=== PATIENT | female | born 1950 | race Caucasian/White ===

== ENCOUNTER → 2016-03-31 | Outpatient (CLI) | payer BC, MEDICARE ==
--- NOTE | 2016-03-31 09:25 | US ---
EXAMINATION TYPE: US abdomen complete DATE OF EXAM: 03/31/2016 7:44 AM COMPARISON: NONE CLINICAL HISTORY: 66-year-old female with abnormal renal function TECHNIQUE: Multiple sonographic images of the abdomen were obtained. FINDINGS: TECHNOLOGIST NOTES: patient very gassy, difficult to image Liver Length: 15.5 cm Gallbladder Wall: 0.2 cm CBD: 0.4 cm Spleen: 10.7 cm Right Kidney: 11.3 x 5.3 x 4.3 cm Left Kidney: 8.8 x 4.0 x 3.5 cm Pancreas: Suboptimal visualization secondary to shadowing from bowel gas. Liver: Normal size with homogeneous echotexture and no focal lesion seen. Gallbladder: No abnormal gallbladder distention, wall thickening, or pericholecystic fluid. However, multiple dependent echoge juan carlos foci are present some of which show posterior shadowing suggestive of calculi measuring up to 1.2 cm. Multiple probable stones with a few remaining within neck in LLD position/ wall not thickened Evidence for sonographic Jeong's sign: No CBD: Within normal limits. Spleen: Within normal limits. Right Kidney: No hydronephrosis. Left Kidney: Asymmetric smaller with cortical thinning. No hydronephrosis. Upper IVC: Within normal limits. Abd Aorta: proximal portion obscured by bowel gas. Mid and distal abdominal aorta show no evidence f or aneurysm. IMPRESSION: 1. Cholelithiasis. No evidence for acute cholecystitis. 2. Atrophic left kidney. 3. No hydronephrosis.
== END | disposition home or self-care (01) ==
LOC: RADUSWWP 07:23
PROVIDERS: ATTEND Internal Medicine
DX: N26.1 Atrophy of kidney (terminal) (principal); K80.20 Calculus of gallbladder without cholecystitis without obstruction
CPT/HCPCS: 76700

== ENCOUNTER 2020-07-10 05:57 | Inpatient (IN) | payer MEDICARE ==
[2020-07-10] MEDS ORDERED: SODIUM CHLORIDE 0.9% 500 ML 500 ML IV STA (06:15)
[2020-07-10] MEDS ORDERED: NITROGLYCERIN SL TABS 0.4 MG TAB SUBLINGUAL STA (06:16)
[2020-07-10] MEDS ORDERED: ASPIRIN 81 MG PO STA (06:16)
--- NOTE | 2020-07-10 06:19 | ED ---
General Adult HPI - General Chief complaint: Shortness of Breath Stated complaint: SOB, chest pain Time Seen by Provider: 07/10/20 06:11 Source: patient, RN notes reviewed Mode of arrival: wheelchair Limitations: no limitations - History of Present Illness Initial comments: This is a 70-year-old female presents emergency Department chief complaint chest pain, shortness breath. Patient states that she's had pain since Monday she states initially was kind of faint dull pressure but resolved on but returned worsened this morning. Patient states she has no prior cardiac disease noted in the disease including 2. Asthma. Patient does admit that she has hypertension, hyperlipidemia and diabetes. Patient denies any history of PE or DVT no history of leg pain noHistory of CHF. - Related Data Allergies Allergy/AdvReac Type Severity Reaction Status Date / Time No Known Allergies Allergy Verified 07/10/20 06:01 Review of Systems ROS Statement: Those systems with pertinent positive or pertinent negative responses have been documented in the HPI. ROS Other: All systems not noted in ROS Statement are negative. Past Medical History Past Medical History: Diabetes Mellitus, Hyperlipidemia, Hypertension, Respiratory Disorder History of Any Multi-Drug Resistant Organisms: None Reported Additional Past Surgical History / Comment(s): skin CA removal Past Psychological History: No Psychological Hx Reported Smoking Status: Never smoker Past Alcohol Use History: None Reported Past Drug Use History: None Reported General Exam Limitations: no limitations General appearance: alert, in no apparent distress Head exam: Present: atraumatic, normocephalic, normal inspection Eye exam: Present: normal appearance, PERRL, EOMI. Absent: scleral icterus, conjunctival injection, periorbital swelling Neck exam: Present: normal inspection, full ROM. Absent: tenderness, meningismus, lymphadenopathy Respiratory exam: Present: normal lung sounds bilaterally. Absent: respiratory distress, wheezes, rales, rhonchi, stridor, chest wall tenderness Cardiovascular Exam: Present: regular rate, normal rhythm, normal heart sounds. Absent: systolic murmur, diastolic murmur, rubs, gallop, clicks GI/Abdominal exam: Present: soft, normal bowel sounds. Absent: distended, tenderness, guarding, rebound, rigid Back exam: Absent: CVA tenderness (R), CVA tenderness (L) Neurological exam: Present: alert, oriented X3, CN II-XII intact Skin exam: Present: warm, dry, intact, normal color. Absent: rash Course Vital Signs 07/10/20 06:02 Temperature 98.0 F Pulse Rate 78 Respiratory 18 Rate Blood Pressure 146/82 O2 Sat by Pulse 99 Oximetry EKG Findings - EKG Comments: EKG Findings:: EKG performed at 6:22 normal sinus rhythm noted inverted T waves V2 through V5 rate of 75 AK 166 QRS 98 QT/QTC 434/484 Medical Decision Making - Lab Data Result diagrams: 07/10/20 06:35 07/10/20 06:35 Lab Results 07/10/20 07/10/20 07/10/20 Range/Units 06:35 06:35 06:35 WBC 11.0 H (3.8-10.6) k/uL RBC 3.52 L (3.80-5.40) m/uL Hgb 11.3 L (11.4-16.0) gm/dL Hct 33.3 L (34.0-46.0) % MCV 94.7 (80.0-100.0) fL MCH 32.1 (25.0-35.0) pg MCHC 33.9 (31.0-37.0) g/dL RDW 13.6 (11.5-15.5) % Plt Count 174 (150-450) k/uL MPV 8.6 Neutrophils % 81 % Lymphocytes % 12 % Monocytes % 5 % Eosinophils % 1 % Basophils % 0 % Neutrophils # 9.0 H (1.3-7.7) k/uL Lymphocytes # 1.3 (1.0-4.8) k/uL Monocytes # 0.5 (0-1.0) k/uL Eosinophils # 0.1 (0-0.7) k/uL Basophils # 0.0 (0-0.2) k/uL PT 10.7 (9.0-12.0) sec INR 1.0 (<1.2) APTT 23.4 (22.0-30.0) sec Sodium 135 L (137-145) mmol/L Potassium 4.6 (3.5-5.1) mmol/L Chloride 104 (98-107) mmol/L Carbon Dioxide 19 L (22-30) mmol/L Anion Gap 12 mmol/L BUN 37 H (7-17) mg/dL Creatinine 1.80 H (0.52-1.04) mg/dL Est GFR (CKD-EPI)AfAm 33 (>60 ml/min/1.73 sqM) Est GFR (CKD-EPI)NonAf 28 (>60 ml/min/1.73 sqM) Glucose 270 H (74-99) mg/dL Plasma Lactic Acid Kin (0.7-2.0) mmol/L Calcium 9.3 (8.4-10.2) mg/dL Magnesium 1.7 (1.6-2.3) mg/dL Total Bilirubin 1.1 (0.2-1.3) mg/dL AST 27 (14-36) U/L ALT 15 (4-34) U/L Alkaline Phosphatase 85 (38-126) U/L Troponin I (0.000-0.034) ng/mL NT-Pro-B Natriuret Pep pg/mL Total Protein 6.7 (6.3-8.2) g/dL Albumin 3.9 (3.5-5.0) g/dL 07/10/20 07/10/20 07/10/20 Range/Units 06:35 06:35 06:35 WBC (3.8-10.6) k/uL RBC (3.80-5.40) m/uL Hgb (11.4-16.0) gm/dL Hct (34.0-46.0) % MCV (80.0-100.0) fL MCH (25.0-35.0) pg MCHC (31.0-37.0) g/dL RDW (11.5-15.5) % Plt Count (150-450) k/uL MPV Neutrophils % % Lymphocytes % % Monocytes % % Eosinophils % % Basophils % % Neutrophils # (1.3-7.7) k/uL Lymphocytes # (1.0-4.8) k/uL Monocytes # (0-1.0) k/uL Eosinophils # (0-0.7) k/uL Basophils # (0-0.2) k/uL PT (9.0-12.0) sec INR (<1.2) APTT (22.0-30.0) sec Sodium (137-145) mmol/L Potassium (3.5-5.1) mmol/L Chloride (98-107) mmol/L Carbon Dioxide (22-30) mmol/L Anion Gap mmol/L BUN (7-17) mg/dL Creatinine (0.52-1.04) mg/dL Est GFR (CKD-EPI)AfAm (>60 ml/min/1.73 sqM) Est GFR (CKD-EPI)NonAf (>60 ml/min/1.73 sqM) Glucose (74-99) mg/dL Plasma Lactic Acid Kin 1.4 (0.7-2.0) mmol/L Calcium (8.4-10.2) mg/dL Magnesium (1.6-2.3) mg/dL Total Bilirubin (0.2-1.3) mg/dL AST (14-36) U/L ALT (4-34) U/L Alkaline Phosphatase (38-126) U/L Troponin I 0.641 H* (0.000-0.034) ng/mL NT-Pro-B Natriuret Pep 39594 pg/mL Total Protein (6.3-8.2) g/dL Albumin (3.5-5.0) g/dL Critical Care Time Critical Care Time: Yes Total Critical Care Time: 35 Critical Care Time: Total 35 minutes of critical care time use initially that the patient already past medical history or in labs EKG and chest x-ray. Patient found to have mild pleural effusion, pulmonary edema, patient has no history of CHF was given dose of Lasix. 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 Disposition Clinical Impression: NSTEMI (non-ST elevated myocardial infarction), CHF (congestive heart failure) Disposition: ADMITTED IP TO THIS HOSP Condition: Fair Referrals: Julieta Donovan MD [Primary Care Provider] - 1-2 days
[2020-07-10] MEDS ORDERED: NITROGLYCERIN OINT 1 INCH/GM PACKET TOPICAL STA (06:41)
[2020-07-10 06:48] LABS: Basophils % (A) 0 %; Eosinophils # (A) 0.1 k/uL (0-0.7); Eosinophils % (A) 1 %; HCT 33.3 % (34.0-46.0); HGB 11.3 gm/dL (11.4-16.0); Lymphocytes # (A) 1.3 k/uL (1.0-4.8); Lymphocytes % (A) 12 %; MCH 32.1 pg (25.0-35.0); MCHC 33.9 g/dL (31.0-37.0); MCV 94.7 fL (80.0-100.0); Mean Platelet Volume 8.6; Monocytes # (A) 0.5 k/uL (0-1.0); Monocytes % (A) 5 %; Neutrophils % (A) 81 %; Platelet Count 174 k/uL (150-450); RBC 3.52 m/uL (3.80-5.40); RDW 13.6 % (11.5-15.5)
[2020-07-10 07:01] LABS: Albumin 3.9 g/dL (3.5-5.0); Calcium 9.3 mg/dL (8.4-10.2); Magnesium 1.7 mg/dL (1.6-2.3); Potassium 4.6 mmol/L (3.5-5.1); Total Bilirubin 1.1 mg/dL (0.2-1.3); Total Protein 6.7 g/dL (6.3-8.2)
[2020-07-10 07:04] LABS: Partial Thromboplastin Time 23.4 sec (22.0-30.0); Prothrombin Time 10.7 sec (9.0-12.0)
--- NOTE | 2020-07-10 07:14 | XR ---
EXAM: XR Chest, 2 Views CLINICAL HISTORY: ITS.REASON XR Reason: difficulty breathing TECHNIQUE: Frontal and lateral views of the chest. COMPARISON: No relevant prior studies available. FINDINGS: Lungs: Bilateral lung opacities. Pleural space: Small pleural effusions. Heart: Unremarkable. Mediastinum: Bilateral hilar prominence. Compare to prior imaging if available. Bones/joints: No acute fracture. Other: Relative lucency at the posterior lung base on the lateral view, indeterminate etiology. IMPRESSION: Small pleural effusions and bilateral lung opacities. Correlate clinically regarding edema or infection.
[2020-07-10] MEDS ORDERED: HEPARIN SODIUM 1,000 UN/ML (10ML VL) IV ONE (07:30)
[2020-07-10] MEDS ORDERED: NITROGLYCERIN SL TABS 0.4 MG TAB SUBLINGUAL PRN (07:30)
[2020-07-10] MEDS ORDERED: FUROSEMIDE 10 MG/ML 4 ML VIAL IV STA (07:33)
[2020-07-10] MEDS: HEPARIN SOD,PORK IN 0.45% NACL 25,000 UNIT in 0.45% NACL 1 250ML.BAG IV SCH ×2 (07:53→23:12)
[2020-07-10] MEDS ORDERED: LORazepam 2 MG/ML INJ IV STA (08:21)
[2020-07-10] MEDS: METOPROLOL SUCCINATE (ER) 50 MG TAB.ER.24H PO SCH (09:21)
[2020-07-10] MEDS: allopurinoL 100 MG TAB PO SCH (09:21)
[2020-07-10] MEDS: LINAGLIPTIN 5 MG TABLET PO SCH (09:22)
[2020-07-10] MEDS: LOSARTAN 50 MG TAB PO SCH (09:22)
--- NOTE | 2020-07-10 10:59 | ECHOF ---
Referral Reason:NSTEMI,CHF MEASUREMENTS -------- HEIGHT: 160.0 cm WEIGHT: 86.2 kg BP: RVIDd: 3.4 cm (< 3.3) IVSd: 0.9 cm (0.6 - 1.1) LVIDd: 5.3 cm (3.9 - 5.3) LVPWd: 1.3 cm (0.6 - 1.1) IVSs: 1.0 cm LVIDs: 3.8 cm LVPWs: 1.3 cm LAESV Index (A-L): 44.52 ml/m Ao Diam: 2.4 cm (2.0 - 3.7) AV Cusp: 1.4 cm (1.5 - 2.6) LA Diam: 4.7 cm (2.7 - 3.8) MV EXCURSION: 18.395 mm (> 18.000) MV EF SLOPE: 61 mm/s (70 - 150) EPSS: 0.9 cm MV E Emile: 0.86 m/s MV DecT: 162 ms MV A Emile: 0.81 m/s MV E/A Ratio: 1.06 RAP: 5.00 mmHg RVSP: 49.31 mmHg FINDINGS -------- Sinus rhythm. This was a technically difficult study with suboptimal views. This was a techncally difficult study with suboptimal views, , Lumason utilized for enhancement of images. The left ventricular size is normal. Overall left ventricular systolic function is moderate-severel y impaired with, an EF between 30 - 35 %. Mid anterior LV wall motion is akinetic. Mid inferior LV wall motion is akinetic. Apical anterior LV wall motion is akinetic. Apical lateral LV wall motion is akinetic. Apical inferior LV wall motion is akinetic. Apical septum LV wall motion is akinetic. The right ventricle is normal in size. LA is severely dilated >40 ml/m2 The right atrial size is normal. 5.0mg OF Lumason UTLIZED: 2 OR MORE WALL SEGMENTS NOT VISUALIZED. The aortic valve was not well visualized. The mitral valve is normal. Moderate mitral regurgitation is present. The tricuspid valve appears structurally normal. Mild tricuspid regurgitation present. There is m oderate pulmonary hypertension. The right ventricular systolic pressure, as measured by Doppler, is 49.31mmHg. The pulmonic valve was not well visualized. The aortic root size is normal. There is no pericardial effusion. CONCLUSIONS -------- 1. This was a technically difficult study with suboptimal views. 2. This was a techncally difficult study with suboptimal views, , Lumason utilized for enhancement of images. 3. Overall left ventricular systolic function is moderate-severely impaired with, an EF between 30 - 35 %. 4. Mid anterior LV wall motion is akinetic. 5. Mid inferior LV wall motion is akinetic. 6. Apical anterior LV wall motion is akinetic. 7. Apical lateral LV wall motion is akinetic. 8. Apical inferior LV wall motion is akinetic. 9. Apical septum LV wall motion is akinetic. 10. LA is severely dilated >40 ml/m2 11. 5.0mg OF Lumason UTLIZED: 2 OR MORE WALL SEGMENTS NOT VISUALIZED. 12. The aortic valve was not well visualized. 13. Moderate mitral regurgitation is present. 14. Mild tricuspid regurgitation present. 15. There is moderate pulmonary hypertension. 16. There is no pericardial effusion. ASSISTANT PROFESSOR OF ENGLISH: Juanis Paredes RDCS
[2020-07-10 11:56] LABS: Glucose,Whole Blood 346 mg/dL (75-99)
[2020-07-10] MEDS: ISOSORBIDE MONONITRATE ER 30 MG TAB.ER.24H PO SCH (12:28)
[2020-07-10] MEDS: GLIMEPIRIDE 2 MG TAB PO SCH ×2 (12:28→21:16)
[2020-07-10] MEDS: INSULIN ASPART (NovoLOG) 100 UNIT/ML VIAL SQ SCH ×3 (12:51→21:16)
[2020-07-10] MEDS: PIOGLITAZONE 30 MG TAB PO SCH (12:51)
--- NOTE | 2020-07-10 13:02 | P.NPCON ---
History of Present Illness - Reason for Consult chronic renal failure - History of Present Illness Reason for consultation: Chronic kidney disease History of present is: Patient is a 70-year-old female seen in consultation for chronic kidney disease. Patient has chronic kidney disease stage IIIB/4 with baseline creatinine in the range of 1.5-2 secondary to ischemic nephropathy and diabetic kidney disease. Patient presented to the hospital with shortness of breath and also chest discomfort. Patient states the pains been going on for the last 2-3 days and describes it as a dull pressure. Chest x-ray was suggestive of vascular congestion. She is currently on BiPAP. She is currently maintained on IV Lasix and is diuresing well. She is also on heparin drip for non-ST elevated myocardial infarction. Patient has long-standing history of diabetes mellitus. She denies use of nonsteroidals. No hematuria or dysuria. No vomiting or diarrhea. Oral intake has been fair. No fever or chills. She tested negative for coronavirus. Vital signs are stable. General: The patient appeared well nourished and normally developed. HEENT: Head exam is unremarkable. Neck is without jugular venous distension. LUNGS: Breath sounds decreased. HEART: Rate and Rhythm are regular. ABDOMEN: Soft, nontender. EXTREMITITES: Trace edema. Past Medical History Past Medical History: Diabetes Mellitus, Hyperlipidemia, Hypertension, Renal Disease, Respiratory Disorder Additional Past Medical History / Comment(s): Stage IV kidney disease, heart m urmur. Pt had Moderna vaccine on 05/07/20 & 06/04/20. History of Any Multi-Drug Resistant Organisms: None Reported Additional Past Surgical History / Comment(s): skin CA removal Past Psychological History: No Psychological Hx Reported Smoking Status: Never smoker Past Alcohol Use History: None Reported Past Drug Use History: None Reported - Past Family History Father Additional Family Medical History / Comment(s): "heart issues" Medications and Allergies Home Medications Medication Instructions Recorded Confirmed Type Allopurinol [Zyloprim] 100 mg PO DAILY 07/10/20 07/10/20 History Aspirin EC [Ecotrin Low Dose] 81 mg PO DAILY 07/10/20 07/10/20 History Cholecalciferol [Vitamin D3 (25 25 mcg PO DAILY 07/10/20 07/10/20 History Mcg = 1000 Iu)] Glimepiride [Amaryl] 2 mg PO BID 07/10/20 07/10/20 History Losartan Potassium 50 mg PO DAILY 07/10/20 07/10/20 History Metoprolol Succinate (ER) [Toprol 50 mg PO DAILY 07/10/20 07/10/20 History Xl] Pioglitazone [Actos] 30 mg PO DAILY 07/10/20 07/10/20 History Simvastatin [Zocor] 40 mg PO HS 07/10/20 07/10/20 History Spironolactone 50 mg PO HS 07/10/20 07/10/20 History sitaGLIPtin [Januvia] 50 mg PO DAILY 07/10/20 07/10/20 History Allergies Allergy/AdvReac Type Severity Reaction Status Date / Time No Known Allergies Allergy Verified 07/10/20 08:46 Physical Exam Vitals: Vital Signs Temp Pulse Pulse Resp BP BP Pulse Ox 07/10/20 12:50 24 98 07/10/20 12:25 66 24 150/69 100 07/10/20 10:25 98.7 F 65 20 143/87 100 07/10/20 10:00 81 24 134/98 99 07/10/20 08:22 98.4 F 92 28 H 164/69 100 07/10/20 06:02 98.0 F 78 18 146/82 99 Intake and Output 07/09/20 07/10/20 07/10/20 22:59 06:59 14:59 Other: Weight 86.183 kg 86.183 kg Results - Lab Results Most recent lab results Calcium 9.3 mg/dL (8.4-10.2) 07/10/20 06:35 Magnesium 1.7 mg/dL (1.6-2.3) 07/10/20 06:35 07/10/20 06:35 07/10/20 06:35 Assessment and Plan Plan: Assessment: 1. 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 Baseline creatinine 1.5-2. GFR at baseline. 2. Non-ST elevated [place] maintained on heparin drip. 3. Acute on chronic systolic CHF with ejection fraction of 30-35% with moderate mitral regurgitation and pulmonary hypertension. 4. Metabolic acidosis secondary to chronic kidney disease. 5. Diabetes mellitus. 6. Volume overload. 7. Acute hypoxic respiratory failure. Currently on BiPAP. Plan: Maintain IV Lasix 40 mg twice daily. Avoid nephrotoxins. Repeat electrolytes in the morning. Monitor bicarb. Thank you for the consultation. I will continue to follow the patient with you during her hospital stay.
--- NOTE | 2020-07-10 14:39 | P.CRDCN ---
History of Present Illness History of present illness: HISTORY OF PRESENTING ILLNESS This is a pleasant 70-year-old female past medical history significant for type 2 diabetes, hyperlipidemia, hypertension, chronic kidney disease. 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 We have been asked to see in consultation for chest pain and congestive heart failure. Patient is seen and examined at bedside on BiPAP. Patient states that she's been having left-sided chest pain for the past week and increased shortness of breath. Pain is exertional. Pain is intermittent describes as a pressure. Her shortness of breath started on Monday and progressively got worse. EKG reveals sinus rhythm, heart rate 75, T wave inversions in the anterior lateral leads. No prior EKG to compare. Laboratory data reviewed, troponins 0.6-->,1.3, BNP elevated 14,500, sodium 135, potassium 4.6, serum creatinine 1.8, magnesium 1.7, covid-19 negative. Chest x-ray small pleural effusions and bilateral lung opacities. Current home cardiac medications include spironolactone 50 mg nightly, simvastatin 40 mg nightly, troponins less than a 50 mg daily, losartan 50 mg daily, aspirin 81 mg daily. REVIEW OF SYSTEMS At the time of my exam: CONSTITUTIONAL: Denies fever or chills. CARDIOVASCULAR: Positive chest pain, positive shortness of breath, positive orthopnea Denies PND or palpitations. RESPIRATORY: Denies cough. GASTROINTESTINAL: Denies abdominal pain, diarrhea, constipation, nausea or vomiting. MUSCULOSKELETAL: Denies myalgias. NEUROLOGIC: Denies numbness, tingling, headacbe or weakness. ENDOCRINE: Denies fatigue, weight change, polydipsia or polyurina. GENITOURINARY: Denies burning, hematuria or urgency with micturation. HEMATOLOGIC: Denies history of anemia or bleeding. PHYSICAL EXAMINATION Blood pressure 150/69, heart rate 66 afebrile and maintaining oxygen saturation BiPAP CONSTITUTIONAL: No apparent distress. HEENT: Head is normocephalic. Pupils are equal, round. Sclerae anicteric. Mucous membranes of the mouth are moist. CHEST EXAMINATION: Lungs bibasilar crackles No chest wall tenderness is noted on palpation or with deep breathing. HEART EXAMINATION: Regular rate and rhythm. S1, S2 heard. Systolic murmuc noted. No gallops or rub. ABDOMEN: Soft, nontender. Positive bowel sounds. EXTREMITIES: 2+ peripheral pulses, moderate lower extremity edema and no calf tenderness. NEUROLOGIC EXAMINATION: Patient is awake, alert and oriented x3. ASSESSMENT NSTEMI Type 2 Diabetes Hyperlipidemia Hypertension Chronic kidney disease- Nephrology consulted PLAN Will obtain 2D echo and review results Will place patient NPO at midnight for possible cardiac catheterization tomorrow. Start IV Lasix 40mg BID, Imdur 30mg daily Continue Losartan, beta charity Nurse Practitioner note has been reviewed, I agree with a documented findings and plan of care. Patient was seen and examined. Past Medical History Past Medical History: Diabetes Mellitus, Hyperlipidemia, Hypertension, Renal Disease, Respiratory Disorder Additional Past Medical History / Comment(s): Stage IV kidney disease, heart murmur. Pt had Moderna vaccine on 05/07/20 & 06/04/20. History of Any Multi-Drug Resistant Organisms: None Reported Additional Past Surgical History / Comment(s): skin CA removal Past Psychological History: No Psychological Hx Reported Smoking Status: Never smoker Past Alcohol Use History: None Reported Past Drug Use History: None Reported - Past Family History Father Additional Family Medical History / Comment(s): "heart issues" Medications and Allergies Home Medications Medication Instructions Recorded Confirmed Type Allopurinol [Zyloprim] 100 mg PO DAILY 07/10/20 07/10/20 History Aspirin EC [Ecotrin Low Dose] 81 mg PO DAILY 07/10/20 07/10/20 History Cholecalciferol [Vitamin D3 (25 25 mcg PO DAILY 07/10/20 07/10/20 History Mcg = 1000 Iu)] Glimepiride [Amaryl] 2 mg PO BID 07/10/20 07/10/20 History Losartan Potassium 50 mg PO DAILY 07/10/20 07/10/20 History Metoprolol Succinate (ER) [Toprol 50 mg PO DAILY 07/10/20 07/10/20 History Xl] Pioglitazone [Actos] 30 mg PO DAILY 07/10/20 07/10/20 History Simvastatin [Zocor] 40 mg PO HS 07/10/20 07/10/20 History Spironolactone 50 mg PO HS 07/10/20 07/10/20 History sitaGLIPtin [Januvia] 50 mg PO DAILY 07/10/20 07/10/20 History Allergies Allergy/AdvReac Type Severity Reaction Status Date / Time No Known Allergies Allergy Verified 07/10/20 08:46 Physical Exam Vitals: Vital Signs Temp Pulse Pulse Resp BP BP Pulse Ox 07/10/20 13:09 66 24 07/10/20 12:50 24 98 07/10/20 12:25 66 24 150/69 100 07/10/20 10:25 98.7 F 65 20 143/87 100 07/10/20 10:00 81 24 134/98 99 07/10/20 08:22 98.4 F 92 28 H 164/69 100 07/10/20 06:02 98.0 F 78 18 146/82 99 Intake and Output 07/09/20 07/10/20 07/10/20 22:59 06:59 14:59 Other: Voiding Method Indwelling Catheter Weight 86.183 kg 86.183 kg Results 07/10/20 06:35 07/10/20 06:35 Cardiac Enzymes 07/10/20 07/10/20 07/10/20 Range/Units 06:35 06:35 10:35 AST 27 (14-36) U/L Troponin I 0.641 H* 1.310 H* (0.000-0.034) ng/mL Coagulation 07/10/20 Range/Units 06:35 PT 10.7 (9.0-12.0) sec APTT 23.4 (22.0-30.0) sec CBC 07/10/20 Range/Units 06:35 WBC 11.0 H (3.8-10.6) k/uL RBC 3.52 L (3.80-5.40) m/uL Hgb 11.3 L (11.4-16.0) gm/dL Hct 33.3 L (34.0-46.0) % Plt Count 174 (150-450) k/uL Comprehensive Metabolic Panel 07/10/20 Range/Units 06:35 Sodium 135 L (137-145) mmol/L Potassium 4.6 (3.5-5.1) mmol/L Chloride 104 (98-107) mmol/L Carbon Dioxide 19 L (22-30) mmol/L BUN 37 H (7-17) mg/dL Creatinine 1.80 H (0.52-1.04) mg/dL Glucose 270 H (74-99) mg/dL Calcium 9.3 (8.4-10.2) mg/dL AST 27 (14-36) U/L ALT 15 (4-34) U/L Alkaline Phosphatase 85 (38-126) U/L Total Protein 6.7 (6.3-8.2) g/dL Albumin 3.9 (3.5-5.0) g/dL Current Medications Generic Name Dose Route Start Last Admin Trade Name Freq PRN Reason Stop Dose Admin Allopurinol 100 mg 07/10/20 09:00 07/10/20 09:21 Allopurinol 100 Mg Tab PO 100 mg DAILY CALLY Administration Aspirin 325 mg 07/11/20 09:00 Aspirin 325 Mg Tab PO DAILY CALLY Atorvastatin Calcium 20 mg 07/10/20 21:00 Atorvastatin 20 Mg Tab PO HS CALLY Furosemide 40 mg 07/10/20 21:00 Furosemide 10 Mg/Ml 4 Ml Vial IV Q12HR CALLY Glimepiride 2 mg 07/10/20 09:00 07/10/20 12:28 Glimepiride 2 Mg Tab PO 2 mg BID CALLY Administration Heparin Sodium/Sodium Chloride 250 mls @ 9.997 mls/hr 07/10/20 07:30 07/10/20 07:53 25,000 unit/ Sodium Chloride IV 11.6 units/kg/hr .Q24H CALLY 9.997 mls/hr Administration Protocol 11.6 UNITS/KG/HR Insulin Aspart 0 unit 07/10/20 12:30 07/10/20 12:51 Insulin Aspart (Novolog) 100 Unit/Ml Vial SQ 6 unit ACHS CALLY Administration Protocol Isosorbide Mononitrate 30 mg 07/10/20 11:00 07/10/20 12:28 Isosorbide Mononitrate Er 30 Mg Tab.Er.24h PO 30 mg DAILY CALLY Administration Linagliptin 5 mg 07/10/20 09:00 07/10/20 09:22 Linagliptin 5 Mg Tablet PO 5 mg DAILY CALLY Administration Losartan Potassium 50 mg 07/10/20 09:00 07/10/20 09:22 Losartan 50 Mg Tab PO 50 mg DAILY CALLY Administration Metoprolol Succinate 50 mg 07/10/20 09:00 07/10/20 09:21 Metoprolol Succinate (Er) 50 Mg Tab.Er.24h PO 50 mg DAILY CALLY Administration Nitroglycerin 0.4 mg 07/10/20 07:30 Nitroglycerin Sl Tabs 0.4 Mg Tab SUBLINGUAL Q5M PRN Chest Pain Pioglitazone HCl 30 mg 07/10/20 09:00 07/10/20 12:51 Pioglitazone 30 Mg Tab PO 30 mg DAILY CALLY Administration Intake and Output 07/09/20 07/10/20 07/10/20 22:59 06:59 14:59 Other: Voiding Method Indwelling Catheter Weight 86.183 kg 86.183 kg Patient Weight 07/11/20 06:59 Weight 86.183 kg 07/10/20 06:35 07/10/20 06:35
--- NOTE | 2020-07-10 16:34 | P.HPIM ---
History of Present Illness This is a pleasant 70 years old female with past medical history of diabetes mellitus, hypertension, hyperlipidemia, stage IV chronic kidney disease. He is a patient of Dr. Barnett presents because OF chest pain and progressive dyspnea over few days. Her chest pain started last Monday for 3-4 days ago, it improved gradually but got worse yesterday. Pain was coming and going. Last night it did not go away so decided to come to the hospital. Was about 5/70 severity on the left side, none dictated. Associated with orthopnea and paroxysmal nocturnal dyspnea. She has to sit up to avoid shortness of breath. She has some little cough and phlegm. Pathak catheter was placed in the emergency room. No GI or urinary symptoms ini tially patient admitted with oxygen supplemented via BiPAP machine including this morning, currently her breathing is improving and she is only on 4 L oxygen and is She denies smoking, alcohol or illicit drugs. Currently she is saturating 96% on 4 L nasal cannula, patient is afebrile. Lap showing WBC of 11.0 K, hemoglobin 11.3, INR is 1.0, sodium 135, creatinine is 1.8. Baseline 1.8-2.2. INR is normal 1.0, trace of BMP and liver enzymes are unremarkable. Troponin is elevated at 0.6 [place] 1[place] [address]. Physical exam, no espinal virus are not detected. Echocardiogram: [employer] ejection fraction 30-35%, several wall motion abnormality chest x-ray: Bilateral lung capacity, edema or infection In the emergency room patient was started on aspirin, heparin drip, lorazepam, furosemide 40 mg IV once. Past Medical History Past Medical History: Diabetes Mellitus, Hyperlipidemia, Hypertension, Renal Disease, Respiratory Disorder Additional Past Medical History / Comment(s): Stage IV kidney disease, heart murmur. Pt had Moderna vaccine on 05/07/20 & 06/04/20. History of Any Multi-Drug Resistant Organisms: None Reported Additional Past Surgical History / Comment(s): skin CA removal Past Psychological History: No Psychological Hx Reported Smoking Status: Never smoker Past Alcohol Use History: None Reported Past Drug Use History: None Reported - Past Family History Father Additional Family Medical History / Comment(s): "heart issues" Medications and Allergies Home Medications Medication Instructions Recorded Confirmed Type Allopurinol [Zyloprim] 100 mg PO DAILY 07/10/20 07/10/20 History Aspirin EC [Ecotrin Low Dose] 81 mg PO DAILY 07/10/20 07/10/20 History Cholecalciferol [Vitamin D3 (25 25 mcg PO DAILY 07/10/20 07/10/20 History Mcg = 1000 Iu)] Glimepiride [Amaryl] 2 mg PO BID 07/10/20 07/10/20 History Losartan Potassium 50 mg PO DAILY 07/10/20 07/10/20 History Metoprolol Succinate (ER) [Toprol 50 mg PO DAILY 07/10/20 07/10/20 History Xl] Pioglitazone [Actos] 30 mg PO DAILY 07/10/20 07/10/20 History Simvastatin [Zocor] 40 mg PO HS 07/10/20 07/10/20 History Spironolactone 50 mg PO HS 07/10/20 07/10/20 History sitaGLIPtin [Januvia] 50 mg PO DAILY 07/10/20 07/10/20 History Allergies Allergy/AdvReac Type Severity Reaction Status Date / Time No Known Allergies Allergy Verified 07/10/20 08:46 Physical Exam Vitals: Vital Signs Temp Pulse Pulse Resp BP BP Pulse Ox 07/10/20 14:00 18 96 07/10/20 13:09 66 24 07/10/20 12:50 24 98 07/10/20 12:25 66 24 150/69 100 07/10/20 10:25 98.7 F 65 20 143/87 100 07/10/20 10:00 81 24 134/98 99 07/10/20 08:22 98.4 F 92 28 H 164/69 100 07/10/20 06:02 98.0 F 78 18 146/82 99 Intake and Output 07/10/20 07/10/20 07/10/20 06:59 14:59 22:59 Other: Voiding Method Indwelling Catheter Weight 86.183 kg 86.183 kg Results CBC & Chem 7: 07/10/20 06:35 07/10/20 06:35 Labs: Abnormal Lab Results - Last 24 Hours (Table) 07/10/20 07/10/20 07/10/20 Range/Units 06:35 06:35 06:35 WBC 11.0 H (3.8-10.6) k/uL RBC 3.52 L (3.80-5.40) m/uL Hgb 11.3 L (11.4-16.0) gm/dL Hct 33.3 L (34.0-46.0) % Neutrophils # 9.0 H (1.3-7.7) k/uL Sodium 135 L (137-145) mmol/L Carbon Dioxide 19 L (22-30) mmol/L BUN 37 H (7-17) mg/dL Creatinine 1.80 H (0.52-1.04) mg/dL Glucose 270 H (74-99) mg/dL POC Glucose (mg/dL) (75-99) mg/dL Troponin I 0.641 H* (0.000-0.034) ng/mL 07/10/20 07/10/20 Range/Units 10:35 11:39 WBC (3.8-10.6) k/uL RBC (3.80-5.40) m/uL Hgb (11.4-16.0) gm/dL Hct (34.0-46.0) % Neutrophils # (1.3-7.7) k/uL Sodium (137-145) mmol/L Carbon Dioxide (22-30) mmol/L BUN (7-17) mg/dL Creatinine (0.52-1.04) mg/dL Glucose (74-99) mg/dL POC Glucose (mg/dL) 346 H (75-99) mg/dL Troponin I 1.310 H* (0.000-0.034) ng/mL Thrombosis Risk Factor Assmnt - Choose All That Apply Each Factor Represents 1 point: Medical pt on bed rest, Obesity (BMI >25) Each Risk Factor Represents 2 Points: Age 61-74 years Other congenital or acquired thrombophilia - If yes, enter type in comment: No Thrombosis Risk Factor Assessment Total Risk Factor Score: 4 Thrombosis Risk Factor Assessment Level: Moderate Risk Assessment and Plan Assessment: acute systolicCHF exacerbation, ejection fraction 30-35% Acute hypoxic respiratory failure secondary to both non-stemi with chest pain and elevated troponin. Diabetes mellitus Hypertension Hyperlipidemia stage IV chronic kidney disease Plan: this is a pleasant 70 years old female who presents with CHF and non-STEMI. Continue with heparin drip, continue with IV Lasix twice a day. Continue with IV Lasix and heparin drip Cardiology consult, nephrology consult Labs and medication were reviewed.. Continue same treatment. Continue with symptomatic treatment. Resume home medication. Monitor lytes and vitals. DVT and GI prophylaxis. Further recommendations as per clinical course of the patient DVT prophylaxis : Heparin GI Prophylaxis: Pepcid PT/OT: Pending Prognosis is guarded
[2020-07-10 16:40] LABS: Glucose,Whole Blood 276 mg/dL (75-99)
[2020-07-10 21:06] LABS: Glucose,Whole Blood 215 mg/dL (75-99)
[2020-07-10] MEDS: ATORVASTATIN 20 MG TAB PO SCH (21:15)
[2020-07-10] MEDS: FAMOTIDINE 20 MG/2 ML VIAL IV SCH (21:15)
[2020-07-10] MEDS: FUROSEMIDE 10 MG/ML 4 ML VIAL IV SCH (21:16)
[2020-07-11 06:22] LABS: Glucose,Whole Blood 118 mg/dL (75-99)
[2020-07-11] MEDS: INSULIN ASPART (NovoLOG) 100 UNIT/ML VIAL SQ SCH ×4 (06:54→20:58)
[2020-07-11 08:40] LABS: Cholesterol 150 mg/dL (<200); HDL Cholesterol 67 mg/dL (40-60); LDL Cholesterol,Calculated 60 mg/dL (0-99); Triglycerides 116 mg/dL (<150)
[2020-07-11] MEDS: FUROSEMIDE 10 MG/ML 4 ML VIAL IV SCH ×2 (08:52→20:59)
[2020-07-11] MEDS: FAMOTIDINE 20 MG/2 ML VIAL IV SCH ×2 (08:53→20:58)
[2020-07-11] MEDS: LOSARTAN 50 MG TAB PO SCH (08:53)
[2020-07-11] MEDS: METOPROLOL SUCCINATE (ER) 50 MG TAB.ER.24H PO SCH (08:53)
[2020-07-11] MEDS: allopurinoL 100 MG TAB PO SCH (08:53)
[2020-07-11] MEDS: ISOSORBIDE MONONITRATE ER 30 MG TAB.ER.24H PO SCH (08:53)
[2020-07-11] MEDS ORDERED: ASPIRIN 325 MG TAB PO SCH (09:00)
[2020-07-11 10:51] LABS: Calcium 9.2 mg/dL (8.4-10.2); Potassium 4.3 mmol/L (3.5-5.1)
--- NOTE | 2020-07-11 11:27 | P.PN ---
Subjective Progress Note Date: 07/11/20 Follow-up for chronic kidney disease. Feels better today. No nausea vomiting or diarrhea. Objective - Vital Signs Vital signs: Vital Signs Temp 98.2 F 07/11/20 09:07 Pulse 82 07/11/20 09:07 Resp 18 07/11/20 09:07 BP 119/68 07/11/20 09:07 Pulse Ox 97 07/11/20 09:07 Intake & Output 07/10/20 07/11/20 07/11/20 18:59 06:59 18:59 Intake Total 330 212.941 Output Total 1400 700 750 Balance -5480 -487.059 -750 Weight 86.183 kg 89 kg Intake: IV 59.82 Heparin Sod,Pork in 0.45% 59.82 NaCl 25,000 unit In 0.45 % NaCl 1 250ml.bag @ 11.6 UNITS/KG/HR 9.997 mls/hr IV .Q24H [facility] Rx#: [id number] Intake, IV Titration 80 153.121 Amount Heparin Sod,Pork in 0.45% 80 153.121 NaCl 25,000 unit In 0.45 % NaCl 1 250ml.bag @ 11.6 UNITS/KG/HR 9.997 mls/hr IV .Q24H [facility] Rx#: [id number] Oral 250 Output: Urine 1400 700 750 Other: Voiding Method Indwelling Catheter Indwelling Catheter Indwelling Catheter - Exam No acute distress S1-S2 heard Decreased breath sounds Pathak Trace edema - Labs CBC & Chem 7: 07/10/20 06:35 07/11/20 07:53 Labs: Abnormal Lab Results - Last 24 Hours (Table) 07/10/20 07/10/20 07/10/20 Range/Units 10:35 11:39 14:29 APTT (22.0-30.0) sec Sodium (137-145) mmol/L Chloride (98-107) mmol/L Carbon Dioxide (22-30) mmol/L BUN (7-17) mg/dL Creatinine (0.52-1.04) mg/dL Glucose (74-99) mg/dL POC Glucose (mg/dL) 346 H (75-99) mg/dL Troponin I 1.310 H* 12.700 H* (0.000-0.034) ng/mL HDL Cholesterol (40-60) mg/dL Procalcitonin (0.02-0.09) ng/mL 07/10/20 07/10/20 07/10/20 Range/Units 14:29 14:29 16:34 APTT 51.4 H (22.0-30.0) sec Sodium (137-145) mmol/L Chloride (98-107) mmol/L Carbon Dioxide (22-30) mmol/L BUN (7-17) mg/dL Creatinine (0.52-1.04) mg/dL Glucose (74-99) mg/dL POC Glucose (mg/dL) 276 H (75-99) mg/dL Troponin I (0.000-0.034) ng/mL HDL Cholesterol (40-60) mg/dL Procalcitonin 0.23 H (0.02-0.09) ng/mL 07/10/20 07/11/20 07/11/20 Range/Units 21:04 06:21 07:53 APTT (22.0-30.0) sec Sodium (137-145) mmol/L Chloride (98-107) mmol/L Carbon Dioxide (22-30) mmol/L BUN (7-17) mg/dL Creatinine (0.52-1.04) mg/dL Glucose (74-99) mg/dL POC Glucose (mg/dL) 215 H 118 H (75-99) mg/dL Troponin I (0.000-0.034) ng/mL HDL Cholesterol 67 H (40-60) mg/dL Procalcitonin (0.02-0.09) ng/mL 07/11/20 07/11/20 Range/Units 07:53 07:53 APTT 37.8 H (22.0-30.0) sec Sodium 135 L (137-145) mmol/L Chloride 108 H (98-107) mmol/L Carbon Dioxide 17 L (22-30) mmol/L BUN 41 H (7-17) mg/dL Creatinine 1.99 H (0.52-1.04) mg/dL Glucose 118 H (74-99) mg/dL POC Glucose (mg/dL) (75-99) mg/dL Troponin I (0.000-0.034) ng/mL HDL Cholesterol (40-60) mg/dL Procalcitonin (0.02-0.09) ng/mL Assessment and Plan Assessment: #1 chronic kidney disease stage IIIB/4 secondary to ischemic/diabetic nephropathy with a baseline creatinine of 1.5-2.0 MG per DL. #2 non-ST elevation IN on heparin drip #3 systolic CHF with the EF of 30-35% #4Metabolic acidosis #5 volume overload #6 hypoxic respiratory failure needing BiPAP. Plan: #1 renal function stable around baseline. #2 currently off BiPAP. Urine output of 2 L with Lasix. #3 continue Lasix 40 mg IV twice a day, change to torsemide 40 mg by mouthDaily at discharge. #4 avoid nephrotoxic agents and hypotensive episodes. #5 sodium bicarbonate for metabolic acidosis
[2020-07-11 12:15] LABS: Glucose,Whole Blood 223 mg/dL (75-99)
[2020-07-11] MEDS: PIOGLITAZONE 30 MG TAB PO SCH (12:21)
[2020-07-11] MEDS: GLIMEPIRIDE 2 MG TAB PO SCH ×2 (12:21→20:58)
[2020-07-11] MEDS: LINAGLIPTIN 5 MG TABLET PO SCH (12:21)
--- NOTE | 2020-07-11 12:53 | P.PN ---
Subjective Progress Note Date: 07/11/20 HISTORY OF PRESENTING ILLNESS This is a pleasant 70-year-old female past medical history significant for type 2 diabetes, hyperlipidemia, hypertension, chronic kidney disease. 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 We have been asked to see in consultation for chest pain and congestive heart failure. Patient is seen and examined at bedside on BiPAP. Patient states that she's been having left-sided chest pain for the past week and increased shortness of breath. Pain is exertional. Pain is interm ittent describes as a pressure. Her shortness of breath started on Monday and progressively got worse. EKG reveals sinus rhythm, heart rate 75, T wave inversions in the anterior lateral leads. No prior EKG to compare. Laboratory data reviewed, troponins 0.6-->,1.3, BNP elevated 14,500, sodium 135, potassium 4.6, serum creatinine 1.8, magnesium 1.7, covid-19 negative. Chest x-ray small pleural effusions and bilateral lung opacities. Current home cardiac medications include spironolactone 50 mg nightly, simvastatin 40 mg nightly, troponins less than a 50 mg daily, losartan 50 mg daily, aspirin 81 mg daily. 07/11: Patient states that she is feeling better today. She denies any chest pain at rest. She is currently nothing by mouth we will plan to feed her today. Nephrology has cleared the patient for intervention tomorrow and patient will be scheduled for heart catheterization tomorrow with Dr. Pompa. Echocardiogram revealed EF of 30-35% with LV wall motion akinetic, moderate mitral regurgitation, mild tricuspid regurgitation, moderate pulmonary hypertension. She has been afebrile, heart rate 82, blood pressure 119/68, pulse ox 97% on 2 L nasal cannula. PHYSICAL EXAMINATION CONSTITUTIONAL: No apparent distress. HEENT: Head is normocephalic. Pupils are equal, round. Sclerae anicteric. Mucous membranes of the mouth are moist. CHEST EXAMINATION: Lungs bibasilar crackles No chest wall tenderness is noted on palpation or with deep breathing. HEART EXAMINATION: Regular rate and rhythm. S1, S2 heard. Systolic murmuc noted. No gallops or rub. ABDOMEN: Soft, nontender. Positive bowel sounds. EXTREMITIES: 2+ peripheral pulses, moderate lower extremity edema and no calf tenderness. NEUROLOGIC EXAMINATION: Patient is awake, alert and oriented x3. ASSESSMENT NSTEMI Type 2 Diabetes Hyperlipidemia Hypertension Chronic kidney disease- Nephrology consulted PLAN NPO at midnight for cardiac catheterization tomorrow at 9 am. Continue IV Lasix 40mg BID, Imdur 30mg daily Continue Losartan, beta charity Nurse Practitioner note has been reviewed, I agree with a documented findings and plan of care. Patient was seen and examined. Objective - Vital Signs Vital signs: Vital Signs Temp 98.2 F 07/11/20 09:07 Pulse 82 07/11/20 09:07 Resp 18 07/11/20 09:07 BP 119/68 07/11/20 09:07 Pulse Ox 97 07/11/20 09:07 Intake & Output 07/10/20 07/11/20 07/11/20 18:59 06:59 18:59 Intake Total 330 212.941 Output Total 1400 700 Balance -1070 -487.059 Weight 86.183 kg 89 kg Intake: IV 59.82 Heparin Sod,Pork in 0.45% 59.82 NaCl 25,000 unit In 0.45 % NaCl 1 250ml.bag @ 11.6 UNITS/KG/HR 9.997 mls/hr IV .Q24H [facility] Rx#: [id number] Intake, IV Titration 80 153.121 Amount Heparin Sod,Pork in 0.45% 80 153.121 NaCl 25,000 unit In 0.45 % NaCl 1 250ml.bag @ 11.6 UNITS/KG/HR 9.997 mls/hr IV .Q24H [facility] Rx#: [id number] Oral 250 Output: Urine 1400 700 Other: Voiding Method Indwelling Catheter Indwelling Catheter Indwelling Catheter - Labs CBC & Chem 7: 07/10/20 06:35 07/11/20 07:53 Labs: Abnormal Lab Results - Last 24 Hours (Table) 07/10/20 07/10/20 07/10/20 Range/Units 10:35 11:39 14:29 APTT (22.0-30.0) sec POC Glucose (mg/dL) 346 H (75-99) mg/dL Troponin I 1.310 H* 12.700 H* (0.000-0.034) ng/mL HDL Cholesterol (40-60) mg/dL Procalcitonin (0.02-0.09) ng/mL 07/10/20 07/10/20 07/10/20 Range/Units 14:29 14:29 16:34 APTT 51.4 H (22.0-30.0) sec POC Glucose (mg/dL) 276 H (75-99) mg/dL Troponin I (0.000-0.034) ng/mL HDL Cholesterol (40-60) mg/dL Procalcitonin 0.23 H (0.02-0.09) ng/mL 07/10/20 07/11/20 07/11/20 Range/Units 21:04 06:21 07:53 APTT (22.0-30.0) sec POC Glucose (mg/dL) 215 H 118 H (75-99) mg/dL Troponin I (0.000-0.034) ng/mL HDL Cholesterol 67 H (40-60) mg/dL Procalcitonin (0.02-0.09) ng/mL 07/11/20 Range/Units 07:53 APTT 37.8 H (22.0-30.0) sec POC Glucose (mg/dL) (75-99) mg/dL Troponin I (0.000-0.034) ng/mL HDL Cholesterol (40-60) mg/dL Procalcitonin (0.02-0.09) ng/mL
[2020-07-11 17:22] LABS: Glucose,Whole Blood 270 mg/dL (75-99)
[2020-07-11] MEDS: SODIUM BICARBONATE TAB 650 MG TAB PO SCH ×2 (18:06→20:58)
[2020-07-11 19:49] LABS: Glucose,Whole Blood 210 mg/dL (75-99)
[2020-07-11] MEDS: ATORVASTATIN 20 MG TAB PO SCH (20:57)
[2020-07-11] MEDS: HEPARIN SOD,PORK IN 0.45% NACL 25,000 UNIT in 0.45% NACL 1 250ML.BAG IV SCH (21:02)
--- NOTE | 2020-07-11 21:30 | P.PN ---
Subjective This is a pleasant 70 years old female with past medical history of diabetes mellitus, hypertension, hyperlipidemia, stage IV chronic kidney disease. He is a patient of Dr. Barnett presents because OF chest pain and progressive dyspnea over few days. Her chest pain started last Monday for 3-4 days ago, it improved gradually but got worse yesterday. Pain was coming and going. Last night it did not go away so decided to come to the hospital. Was about 5/70 severity on the left side, none dictated. Associated with orthopnea and paroxysmal nocturnal dyspnea. She has to sit up to avoid shortness of breath. She has some little cough and phl egm. Pathak catheter was placed in the emergency room. No GI or urinary symptoms initially patient admitted with oxygen supplemented via BiPAP machine including this morning, currently her breathing is improving and she is only on 4 L oxygen and is She denies smoking, alcohol or illicit drugs. Currently she is saturating 96% on 4 L nasal cannula, patient is afebrile. Lap showing WBC of 11.0 K, hemoglobin 11.3, INR is 1.0, sodium 135, creatinine is 1.8. Baseline 1.8-2.2. INR is normal 1.0, trace of BMP and liver enzymes are unremarkable. Troponin is elevated at 0.6 [place] 1[place] [address]. Physical exam, no espinal virus are not detected. Echocardiogram: October ejection fraction 30-35%, several wall motion abnormality chest x-ray: Bilateral lung capacity, edema or infection In the emergency room patient was started on aspirin, heparin drip, lorazepam, furosemide 40 mg IV once. 07/11/2020 Patient with minimal symptoms today however lying in bed most of the time. She has chest pain on and off Hemodynamically stable Creatinine stable at 1.9, nephrology on the case as patient is going for cardiac cath, adequate sodium bicarb today. 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 Nothing by mouth after midnight In the meantime patient remains on heparin drip, IV Lasix. Also she is on aspirin. Objective - Vital Signs Vital signs: Vital Signs Temp 97.7 F 07/11/20 17:00 Pulse 67 07/11/20 17:00 Resp 18 07/11/20 17:00 BP 114/60 07/11/20 17:00 Pulse Ox 99 07/11/20 17:00 Intake & Output 07/11/20 07/11/20 07/12/20 06:59 18:59 06:59 Intake Total 212.941 240 210.603 Output Total 700 750 400 Balance -487.059 -510 -189.397 Weight 89 kg Intake: IV 59.82 Heparin Sod,Pork in 0.45% 59.82 NaCl 25,000 unit In 0.45 % NaCl 1 250ml.bag @ 11.6 UNITS/KG/HR 9.997 mls/hr IV .Q24H [facility] Rx#: [id number] Intake, IV Titration 153.121 210.603 Amount Heparin Sod,Pork in 0.45% 153.121 210.603 NaCl 25,000 unit In 0.45 % NaCl 1 250ml.bag @ 11.6 UNITS/KG/HR 9.997 mls/hr IV .Q24H [facility] Rx#: [id number] Oral 240 Output: Urine 700 750 400 Other: Voiding Method Indwelling Catheter Indwelling Catheter - Labs CBC & Chem 7: 07/10/20 06:35 07/11/20 07:53 Labs: Abnormal Lab Results - Last 24 Hours (Table) 07/10/20 07/10/20 07/11/20 Range/Units 14:29 21:04 06:21 APTT (22.0-30.0) sec Sodium (137-145) mmol/L Chloride (98-107) mmol/L Carbon Dioxide (22-30) mmol/L BUN (7-17) mg/dL Creatinine (0.52-1.04) mg/dL Glucose (74-99) mg/dL POC Glucose (mg/dL) 215 H 118 H (75-99) mg/dL HDL Cholesterol (40-60) mg/dL Procalcitonin 0.23 H (0.02-0.09) ng/mL 07/11/20 07/11/20 07/11/20 Range/Units 07:53 07:53 07:53 APTT 37.8 H (22.0-30.0) sec Sodium 135 L (137-145) mmol/L Chloride 108 H (98-107) mmol/L Carbon Dioxide 17 L (22-30) mmol/L BUN 41 H (7-17) mg/dL Creatinine 1.99 H (0.52-1.04) mg/dL Glucose 118 H (74-99) mg/dL POC Glucose (mg/dL) (75-99) mg/dL HDL Cholesterol 67 H (40-60) mg/dL Procalcitonin (0.02-0.09) ng/mL 07/11/20 07/11/20 07/11/20 Range/Units 12:02 16:55 19:48 APTT (22.0-30.0) sec Sodium (137-145) mmol/L Chloride (98-107) mmol/L Carbon Dioxide (22-30) mmol/L BUN (7-17) mg/dL Creatinine (0.52-1.04) mg/dL Glucose (74-99) mg/dL POC Glucose (mg/dL) 223 H 270 H 210 H (75-99) mg/dL HDL Cholesterol (40-60) mg/dL Procalcitonin (0.02-0.09) ng/mL Assessment and Plan Assessment: acute systolicCHF exacerbation, ejection fraction 30-35% Acute hypoxic respiratory failure secondary to both non-stemi with chest pain and elevated troponin. Diabetes mellitus Hypertension Hyperlipidemia stage IV chronic kidney disease Plan: this is a pleasant 70 years old female who presents with CHF and non-STEMI. Continue with heparin drip, continue with IV Lasix twice a day. Continue with IV Lasix and heparin drip Cardiology consult, nephrology consult Labs and medication were reviewed.. Continue same treatment. Continue with symptomatic treatment. Resume home medication. Monitor lytes and vitals. DVT and GI prophylaxis. Further recommendations as per clinical course of the patient DVT prophylaxis : Heparin GI Prophylaxis: Pepcid PT/OT: Pending Prognosis is guarded
[2020-07-12 06:23] LABS: Glucose,Whole Blood 145 mg/dL (75-99)
[2020-07-12] MEDS ORDERED: HEPARIN SODIUM,PORCINE 2,500 UNIT in SODIUM CHLORIDE 0.9% 250 ML IRRIGATION PRN (07:00)
[2020-07-12] MEDS ORDERED: ASPIRIN 325 MG TAB PO STA (07:13)
[2020-07-12] MEDS ORDERED: ALPRAZolam 0.25 MG TAB PO PRN (07:13)
[2020-07-12] MEDS ORDERED: ALPRAZolam 0.5 MG TAB PO PRN (07:13)
[2020-07-12] MEDS ORDERED: ATORVASTATIN 80 MG TAB PO STA (07:13)
[2020-07-12] MEDS ORDERED: HEPARIN SODIUM,PORCINE 10,000 UNIT in SODIUM CHLORIDE 0.9% 1,000 ML IRRIGATION PRN (07:30)
[2020-07-12] MEDS: METOPROLOL SUCCINATE (ER) 50 MG TAB.ER.24H PO SCH (08:01)
[2020-07-12] MEDS: FAMOTIDINE 20 MG/2 ML VIAL IV SCH (08:01)
[2020-07-12] MEDS: allopurinoL 100 MG TAB PO SCH (08:01)
[2020-07-12] MEDS: LOSARTAN 50 MG TAB PO SCH (08:01)
[2020-07-12] MEDS: ISOSORBIDE MONONITRATE ER 30 MG TAB.ER.24H PO SCH (08:01)
[2020-07-12] MEDS: SODIUM CHLORIDE 0.9% 1,000 ML in EMPTY BAG 1 BAG IV ONE ×2 (08:02→11:05)
[2020-07-12] MEDS: SODIUM BICARBONATE TAB 650 MG TAB PO SCH ×3 (08:03→20:35)
[2020-07-12] MEDS ORDERED: LIDOCAINE 1% INJ 10MG/ML (20 ML MDV) ONE (08:38)
[2020-07-12] MEDS ORDERED: VERAPAMIL 2.5 MG/ML 2 ML AMP ONE (08:38)
[2020-07-12] MEDS ORDERED: HEPARIN SODIUM 1,000 UN/ML (10ML VL) ONE (08:45)
[2020-07-12] MEDS ORDERED: fentaNYL (PF) 50 MCG/ML 2 ML AMP ONE (08:45)
[2020-07-12 09:01] LABS: Calcium 8.8 mg/dL (8.4-10.2); Potassium 4.3 mmol/L (3.5-5.1)
[2020-07-12] MEDS ORDERED: fentaNYL (PF) 50 MCG/ML 2 ML AMP IV ONE (09:07)
[2020-07-12] MEDS ORDERED: MIDAZOLAM 2 MG/2 ML VIAL IV ONE (09:07)
[2020-07-12] MEDS ORDERED: LIDOCAINE 1% INJ 10MG/ML (20 ML MDV) SQ ONE (09:09)
[2020-07-12] MEDS ORDERED: VERAPAMIL SYRINGE (5 MG/10 ML) INTRAARTER ONE (09:11)
[2020-07-12] MEDS ORDERED: IV FLUID CONTINUATION 700 ML IV ONE (09:11)
[2020-07-12] MEDS ORDERED: HEPARIN SODIUM 1,000 UN/ML (10ML VL) IV ONE (09:16)
[2020-07-12] MEDS ORDERED: NITROGLYCERIN OINT 1 INCH/GM PACKET TOPICAL ONE ×2 (09:17→09:19)
[2020-07-12] MEDS ORDERED: IOPAMIDOL-370 125ML BTL INJ ONE (09:38)
[2020-07-12] MEDS ORDERED: RX INFO: IV CONTRAST WAS GIVEN 1 EACH MISC MISCELLANE PRN (09:46)
--- NOTE | 2020-07-12 09:46 | P.CARDCATH ---
Date of Procedure: 07/12/20 Preoperative Diagnosis: Long-standing, ischemic cardiomyopathy and congestive heart failure Postoperative Diagnosis: Triple-vessel disease with critical lesion in the mid LAD and also mid RCA. Heavily calcified vessels Procedure(s) Performed: Left heart catheterization without left ventriculography Description of Procedure: HISTORY: This is a 70-year-old female with history of diabetes, hypertension and renal failure who was admitted to the hospital with symptoms of chest pain and shortness of breath. She was found to be in congestive heart failure and positive cardiac enzymes suggestive of non-ST NH. Echocardiogram showed severe hypokinesis of the anteroapical wall and apical segments with ejection fraction of 30%. Patient is advised to have cardiac catheterization. She is known to have chronic renal failure. Patient was evaluated by nephrology cleared for procedure. Patient and family fully understand the risks of cardiac catheterization including possibility of worsening renal failure requiring dialysis CONSENT:I have discussed the risks, benefits and alternative therapies for the above-mentioned procedure and for both sedation/analgesia as well as necessary blood product administration, if indicated, as they pertain to this patient. The patient has indicated understanding and acceptance of the risks and procedures discussed. PROCEDURE: Patient was brought to the lab in a fasting state. Patient was given some IV sedation. The right wrist is infiltrated with lidocaine and right radial artery was entered using Seldinger technique. A 6-[place] catheter was left in place and selective coronary arteriography was performed. Patient tolerated the procedure well. Patient is waiting to be evaluated by Dr. NAHOMY Potter for possible intervention. TR band will be applied for hemostasis.. No immediate complications were noted and patient was transferred to [facility] in a stable condition Conscious Sedation: Versed 1mg Fentanyl 25 g Duration 13minutes HEMODYNAMICS: Aortic pressure 110/70. Left ventricular end-diastolic pressure is 25. There was no gradient across the aortic valve SELECTIVE CORONARY ARTERIOGRAPHY: LEFT MAIN: Calcified but free of occlusive disease THE LEFT ANTERIOR DESCENDING CORONARY ARTERY:. This is heavily calcified vessel with 95% to 99% stenosis involving the midportion after the diagonal. Rest of the vessel is also heavily calcified with mild diffuse disease THE LEFT CIRCUMFLEX AND IS CORONARY ARTERY: This is a relatively small caliber vessel giving rise to small OM branch, has about 60% stenosis in midportion THE RIGHT CORONARY ARTERY: This is a dominant vessel with about 70-80% long lesion in the midportion. Again heavily calcified vessel LEFT VENTRICULOGRAPHY: Not performed FINAL IMPRESSION:. Triple-vessel coronary artery disease with critical lesion in the mid LAD. Significant disease in mid RCA and moderate disease in the circumflex. LV function is severely impaired PLAN:. Continue medical therapy. Films reviewed with Dr. NAHOMY Potter. Because of her kidney dysfunction, at this time, no further interventions are being done today to avoid dye overload. We'll also obtain surgical consultation for possible CABG PROGNOSIS: guarded
[2020-07-12] MEDS ORDERED: NITROGLYCERIN-D5W PMX 50 MG in DEXTROSE/WATER 1 250ML.BAG IV SCH (11:00)
[2020-07-12] MEDS: FUROSEMIDE 10 MG/ML 4 ML VIAL IV SCH (11:06)
[2020-07-12] MEDS: INSULIN ASPART (NovoLOG) 100 UNIT/ML VIAL SQ SCH ×4 (11:07→20:35)
[2020-07-12] MEDS: SODIUM CHLORIDE 0.9% 1,000 ML IV SCH ×2 (11:08→23:53)
[2020-07-12 12:02] LABS: Glucose,Whole Blood 191 mg/dL (75-99)
--- NOTE | 2020-07-12 13:19 | P.PN ---
Subjective Progress Note Date: 07/12/20 Follow-up for chronic kidney disease. Had cardiac cath today, currently on nitro drip with ongoing chest pain. Cardiac cath showed multivessel disease. Objective - Vital Signs Vital signs: Vital Signs Temp 98.1 F 07/12/20 08:00 Pulse 79 07/12/20 08:00 Resp 18 07/12/20 11:13 BP 126/66 07/12/20 11:13 Pulse Ox 91 L 07/12/20 11:13 Intake & Output 07/11/20 07/12/20 07/12/20 18:59 06:59 18:59 Intake Total 240 277.803 150 Output Total 750 700 Balance -510 -422.197 150 Weight 88.2 kg Intake: IV 150 Intake, IV Titration 277.803 Amount Heparin Sod,Pork in 0.45% 277.803 NaCl 25,000 unit In 0.45 % NaCl 1 250ml.bag @ 11.6 UNITS/KG/HR 9.997 mls/hr IV .Q24H [facility] Rx#: [id number] Oral 240 Output: Urine 750 700 Other: Voiding Method Indwelling Catheter Indwelling Catheter Indwelling Catheter - Exam No acute distress S1-S2 heard Decreased breath sounds Pathak Trace edema - Labs CBC & Chem 7: 07/10/20 06:35 07/12/20 07:39 Labs: Abnormal Lab Results - Last 24 Hours (Table) 07/11/20 07/11/20 07/12/20 Range/Units 16:55 19:48 00:07 APTT 63.2 H (22.0-30.0) sec BUN (7-17) mg/dL Creatinine (0.52-1.04) mg/dL Glucose (74-99) mg/dL POC Glucose (mg/dL) 270 H 210 H (75-99) mg/dL 07/12/20 07/12/20 07/12/20 Range/Units 06:21 07:39 11:51 APTT (22.0-30.0) sec BUN 40 H (7-17) mg/dL Creatinine 2.09 H (0.52-1.04) mg/dL Glucose 147 H (74-99) mg/dL POC Glucose (mg/dL) 145 H 191 H (75-99) mg/dL Assessment and Plan Assessment: #1 acute kidney injury suspect hemodynamics. #2 chronic kidney disease stage IIIB/4 secondary to ischemic/diabetic nephropathy with a baseline creatinine of 1.5-2.0 MG per DL. #3 non-ST elevation IA status post cardiac cath with multivessel disease. #4 systolic CHF with the EF of 30-35% #5 metabolic acidosis Plan: #1 creeping creatinine today prior to cardiac cath. #2 currently off BiPAP. Urine output of 1.4 L in the last 24 hours. #3 hold Lasix and Cozaar. Continue with normal saline at 75 ML's an hour. #4 avoid nephrotoxic agents and hypotensive episodes. #5 sodium bicarbonate for metabolic acidosis
--- NOTE | 2020-07-12 14:22 | P.GSCN ---
History of Present Illness Consult date: 07/12/20 Reason for Consult: Symptomatic multivessel coronary artery disease, non-ST elevated myocardial infarction this admission. Requesting physician: Haylee Pompa History of present illness: This is a 70-year-old female patient who follows with Dr. Julieta Donovan on an outpatient basis for her primary care service. She has a past medical history significant for a known heart murmur, hypertension, hyperlipidemia, diabetes mellitus type 2 on oral medication, chronic kidney disease stage IIIb/IV, skin cancer to her face, family history of early onset coronary artery disease with her dad having his first heart attack in his mid 40s and she is a lifetime nonsmoker. The patient presented to the emergency department here at [facility] on 07/10/2020 due to complaints of shortness of breath and chest pain which was radiating to her teeth. The patient reports that the shortness of breath and chest pain awoke her from a sleep on night going into Monday and had no relief despite resting. She denies any nausea, vomiting, dizziness, fever, chills, diarrhea, constipation, headache, presyncope or syncope. The patient did report she had a few previous episodes within the last 1-2 months of similar symptoms with shortness of breath and chest pain. She states that she never sought medical attention before as the shortness of breath and chest pain relieved on its own. A 12-lead EKG was completed in the emergency department which showed normal sinus rhythm with STT wave inversions in her anterior lateral leads with a heart rate of 75 BPM. Her laboratory results showed a WBC count of 11.0, hemoglobin 11.3, hematocrit 33.3, platelets 174, sodium 135, potassium 4.6, CO2 19, BUN 37, creatinine 1.80, glucose 270, Pro BNP 14,500, and positive troponin 0.641 and went as high as 12.700. She also had a Procalcitonin level which was 0.23 and her lactic acid level was 1.4. A chest x-ray was completed which the report showed small bilateral pleural effusions and bilateral lung opacities. Due to the patient's presenting symptoms a 2-D echocardiogram was completed which showed an overall left ventricular systolic function to be moderate to severely impaired with an ejection fraction between 30 and 35%, moderate mitral valve regurgitation, and mild tricuspid valve regurgitation. Today 07/12/2020 the patient underwent a cardiac catheterization which demonstrated triple-vessel coronary artery disease with a critical stenosis of 95-99% involving the mid left anterior descending coronary artery, a 60% stenosis to her circumflex coronary artery and a 70-80% stenosis to her mid right coronary artery. Subsequently due to the patient's presenting symptoms, and finding on the 2-D echocardiogram and cardiac catheterization a consult was placed to Dr. Beverly Pickens from cardiothoracic surgery for further evaluation and treatment recommendations including myocardial revascularization surgery. Review of Systems A 14 point review of systems was completed was negative except as mentioned in the HPI. Past Medical History Past Medical History: Diabetes Mellitus, Hyperlipidemia, Hypertension, Renal Disease, Respiratory Disorder Additional Past Medical History / Comment(s): Stage IIIb/IV kidney disease, heart murmur. Pt had COVID 19 Moderna vaccine on 05/07/20 & 06/04/20. History of Any Multi-Drug Resistant Organisms: None Reported Additional Past Surgical History / Comment(s): skin CA removal, bilateral cataracts Past Anesthesia/Blood Transfusion Reactions: No Reported Reaction Past Psychological History: No Psychological Hx Reported Smoking Status: Never smoker Past Alcohol Use History: None Reported Past Drug Use History: None Reported - Past Family History Father Family Medical History: Myocardial Infarction (MD) (Her father had a heart a ttack in his mid 40s and from a myocardial infarction at age 64) Additional Family Medical History / Comment(s): "heart issues" Mother Family Medical History: Diabetes Mellitus, Hypertension Medications and Allergies Home Medications Medication Instructions Recorded Confirmed Type Allopurinol [Zyloprim] 100 mg PO DAILY 07/10/20 07/10/20 History Aspirin EC [Ecotrin Low Dose] 81 mg PO DAILY 07/10/20 07/10/20 History Cholecalciferol [Vitamin D3 (25 25 mcg PO DAILY 07/10/20 07/10/20 History Mcg = 1000 Iu)] Glimepiride [Amaryl] 2 mg PO BID 07/10/20 07/10/20 History Losartan Potassium 50 mg PO DAILY 07/10/20 07/10/20 History Metoprolol Succinate (ER) [Toprol 50 mg PO DAILY 07/10/20 07/10/20 History Xl] Pioglitazone [Actos] 30 mg PO DAILY 07/10/20 07/10/20 History Simvastatin [Zocor] 40 mg PO HS 07/10/20 07/10/20 History Spironolactone 50 mg PO HS 07/10/20 07/10/20 History sitaGLIPtin [Januvia] 50 mg PO DAILY 07/10/20 07/10/20 History Allergies Allergy/AdvReac Type Severity Reaction Status Date / Time No Known Allergies Allergy Verified 07/10/20 08:46 Surgical - Exam Vital Signs Temp Pulse Resp BP Pulse Ox 98.0 F 78 18 146/82 99 07/10/20 06:02 07/10/20 06:02 07/10/20 06:02 07/10/20 06:02 07/10/20 06:02 CONSTITUTIONAL: Resting in bed on the cardiac stepdown unit appears comfortable, cooperative, no apparent acute distress. HEENT: Head is normocephalic. Pupils are equal, round and reactive. Mucous membranes are of the mouth are moist. No carotid bruit. RESPIRATORY: Lungs sounds diminished bilaterally, few scattered crackles to her bilateral bases. Respirations even, nonlabored. Currently on 3 L nasal cannula oxygen saturation 91%. CARDIOVASCULAR: S1, S2 present negative for S3, or gallop. Positive systolic m urmur heard best to her left sternal border. Regular rate and rhythm, sinus rhythm on telemetry. +1 edema to her bilateral lower extremities. GASTROINTESTINAL: Abdomen soft, nontender, nondistended. Active bowel sounds present 4 quadrants. Tolerating diet. No guarding or rigidity. INTEGUMENTARY: Skin is warm and dry, no clubbing or cyanosis. NEUROLOGIC: Cranial nerves II through XII intact. No focal deficits. MUSKULOSKELETAL: Able to move all extremities, strength equal bilaterally. PSYCHIATRIC: Alert and oriented to person place and time, appropriate affect, intact judgment and insight Results - Labs 07/10/20 06:35 07/12/20 07:39 Abnormal Lab Results - Last 24 Hours (Table) 07/11/20 07/11/20 07/12/20 Range/Units 16:55 19:48 00:07 APTT 63.2 H (22.0-30.0) sec BUN (7-17) mg/dL Creatinine (0.52-1.04) mg/dL Glucose (74-99) mg/dL POC Glucose (mg/dL) 270 H 210 H (75-99) mg/dL 07/12/20 07/12/20 07/12/20 Range/Units 06:21 07:39 11:51 APTT (22.0-30.0) sec BUN 40 H (7-17) mg/dL Creatinine 2.09 H (0.52-1.04) mg/dL Glucose 147 H (74-99) mg/dL POC Glucose (mg/dL) 145 H 191 H (75-99) mg/dL Diabetes panel 07/12/20 Range/Units 07:39 Sodium 137 (137-145) mmol/L Potassium 4.3 (3.5-5.1) mmol/L Chloride 105 (98-107) mmol/L Carbon Dioxide 22 (22-30) mmol/L BUN 40 H (7-17) mg/dL Creatinine 2.09 H (0.52-1.04) mg/dL Glucose 147 H (74-99) mg/dL Calcium 8.8 (8.4-10.2) mg/dL Calcium panel 07/12/20 Range/Units 07:39 Calcium 8.8 (8.4-10.2) mg/dL Pituitary panel 07/12/20 Range/Units 07:39 Sodium 137 (137-145) mmol/L Potassium 4.3 (3.5-5.1) mmol/L Chloride 105 (98-107) mmol/L Carbon Dioxide 22 (22-30) mmol/L BUN 40 H (7-17) mg/dL Creatinine 2.09 H (0.52-1.04) mg/dL Glucose 147 H (74-99) mg/dL Calcium 8.8 (8.4-10.2) mg/dL Adrenal panel 07/12/20 Range/Units 07:39 Sodium 137 (137-145) mmol/L Potassium 4.3 (3.5-5.1) mmol/L Chloride 105 (98-107) mmol/L Carbon Dioxide 22 (22-30) mmol/L BUN 40 H (7-17) mg/dL Creatinine 2.09 H (0.52-1.04) mg/dL Glucose 147 H (74-99) mg/dL Calcium 8.8 (8.4-10.2) mg/dL - Imaging Chest x-ray: report reviewed, image reviewed EKG: image reviewed Additional studies: 2-D echocardiogram results reviewed and cardiac catheterization results reviewed by Dr. Beverly Pickens. Assessment and Plan Assessment: 1. Symptomatic multivessel coronary artery disease 2. Non-ST elevated myocardial infarction this admission 3. Acute on chronic systolic congestive heart failure with an overall left ventricular systolic function moderately severely impaired with an ejection fr action between 30 and 35% per 2-D echocardiogram 4. Moderate mitral valve regurgitation 5. Dyspnea on admission, secondary to acute on chronic systolic congestive heart failure, proBNP on admission 14,500 6. Chronic kidney disease stage IIIB/4 7. Diabetes mellitus type 2 8. History of hypertension 9. History of hyperlipidemia 10. History of heart murmur 11. Lifetime nonsmoker 12. Family history of early onset coronary artery disease with her father having a myocardial infarction in his mid 40s Plan: The patient was seen and examined at her bedside on the cardiac stepdown unit. Her chart and diagnostics were reviewed. Her case was discussed in detail with Dr. Beverly Pickens from cardiothoracic surgery. Preoperative testing and preoperative teaching has been initiated. The usual preoperative course of open heart surgery was discussed with the patient, and the patient's sister present at her bedside. All questions were answered. Continue to optimize medically with aspirin, statin, and beta charity. Patient is currently on nitroglycerin drip managed by cardiology. Once her preoperative testing has been obtained, more recommendations to follow based on patient's clinical course. Once she is able to ambulate we will obtain a 5 m walk test. Medical management and other comorbidities per primary care service. Continue to avoid nephrotoxic agents. Encourage use of her incentive spirometry 10 times every hour while awake. Once the preoperative testing has been completed an STS risk score will be calculated and discussed with the patient by the cardiac surgeon. Thank you Dr. Pompa for this consult and we look forward to working with you in the care of this patient. Time with Patient: Greater than 30
[2020-07-12] MEDS: PIOGLITAZONE 30 MG TAB PO SCH (15:42)
[2020-07-12] MEDS: LINAGLIPTIN 5 MG TABLET PO SCH (15:42)
[2020-07-12] MEDS: GLIMEPIRIDE 2 MG TAB PO SCH ×2 (15:42→20:35)
[2020-07-12 17:07] LABS: Glucose,Whole Blood 201 mg/dL (75-99)
[2020-07-12 19:41] LABS: Appearance,Urine Clear (Clear); Bacteria,Urine Occasional /hpf; Bilirubin,Urine 1+ (Negative); Blood,Urine Trace (Negative); Color,Urine Yellow; Glucose,Urine (UA) Negative (Negative); Ketones,Urine Trace (Negative); Leukocyte Esterase,Urine Large (Negative); Mucus,Urine Many /hpf; Nitrite,Urine Negative (Negative); PH, Urine 5.5 (5.0-8.0); Protein,Urine 1+ (Negative); RBC,Urine 6 /hpf (0-5); Specific Gravity,Urine 1.034 (1.001-1.035); Squamous Epithelial Cell,Urine 3 /hpf (0-4); WBC,Urine 33 /hpf (0-5)
[2020-07-12 20:20] LABS: Glucose,Whole Blood 219 mg/dL (75-99)
[2020-07-12] MEDS: ATORVASTATIN 20 MG TAB PO SCH (20:35)
--- NOTE | 2020-07-12 22:47 | P.PN ---
Subjective This is a pleasant 70 years old female with past medical history of diabetes mellitus, hypertension, hyperlipidemia, stage IV chronic kidney disease. He is a patient of Dr. Barnett presents because OF chest pain and progressive dyspnea over few days. Her chest pain started last Monday for 3-4 days ago, it improved gradually but got worse yesterday. Pain was coming and going. Last night it did not go away so decided to come to the hospital. Was about 5/70 severity on the left side, none dictated. Associated with orthopnea and paroxysmal nocturnal dyspnea. She has to sit up to avoid shortness of breath. She has some little cough and phl egm. Pathak catheter was placed in the emergency room. No GI or urinary symptoms initially patient admitted with oxygen supplemented via BiPAP machine including this morning, currently her breathing is improving and she is only on 4 L oxygen and is She denies smoking, alcohol or illicit drugs. Currently she is saturating 96% on 4 L nasal cannula, patient is afebrile. Lap showing WBC of 11.0 K, hemoglobin 11.3, INR is 1.0, sodium 135, creatinine is 1.8. Baseline 1.8-2.2. INR is normal 1.0, trace of BMP and liver enzymes are unremarkable. Troponin is elevated at 0.6 [place] [address]. Physical exam, no espinal virus are not detected. Echocardiogram: October ejection fraction 30-35%, several wall motion abnormality chest x-ray: Bilateral lung capacity, edema or infection In the emergency room patient was started on aspirin, heparin drip, lorazepam, furosemide 40 mg IV once. 07/11/2020 Patient with minimal symptoms today however lying in bed most of the time. She has chest pain on and off Hemodynamically stable Creatinine stable at 1.9, nephrology on the case as patient is going for cardiac cath, adequate sodium bicarb today. 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 Nothing by mouth after midnight In the meantime patient remains on heparin drip, IV Lasix. Also she is on aspirin. 07/12/20 Patient remains with minimal symptoms while she is at rest. Chest pain on and off. Hemodynamically stable. And her creatinine only slightly up over the last 2 days 1.8, 1.9 and 2.0 today, bank worker stopped her IV Lasix and Cozaar as well. Patient underwent cardiac cath today and found to have severe triple vessel coronary artery disease, cardiothoracic surgery team is Consulted. Patient heparin drip was stopped and started on nitroglycerin drip. Lasix, Cozaar and D5W were stopped and patient was started on normal saline at 75 mL/h. May consider to stop normal saline tomorrow Objective - Vital Signs Vital signs: Vital Signs Temp 98.1 F 07/12/20 08:00 Pulse 79 07/12/20 08:00 Resp 18 07/12/20 11:13 BP 126/66 07/12/20 11:13 Pulse Ox 91 L 07/12/20 11:13 Intake & Output 07/11/20 07/12/20 07/12/20 18:59 06:59 18:59 Intake Total 240 277.803 300 Output Total 750 700 Balance -510 -422.197 300 Weight 88.2 kg Intake: IV 150 Intake, IV Titration 277.803 Amount Heparin Sod,Pork in 0.45% 277.803 NaCl 25,000 unit In 0.45 % NaCl 1 250ml.bag @ 11.6 UNITS/KG/HR 9.997 mls/hr IV .Q24H [facility] Rx#: [id number] Oral 240 150 Output: Urine 750 700 Other: Voiding Method Indwelling Catheter Indwelling Catheter Indwelling Catheter - Exam GENERAL: The patient is alert and oriented x3, not in any acute distress. Well developed, well nourished. HEENT: Pupils are round and equally reacting to light. EOMI. No scleral icterus. No conjunctival pallor. Normocephalic, atraumatic. No pharyngeal erythema. No thyromegaly. CARDIOVASCULAR: S1 and S2 present. No murmurs, rubs, or gallops. PULMONARY: Chest is clear to auscultation, no wheezing or crackles. ABDOMEN: Soft, nontender, nondistended, normoactive bowel sounds. No palpable organomegaly. MUSCULOSKELETAL: No joint swelling or deformity. EXTREMITIES: No cyanosis, clubbing, or pedal edema. NEUROLOGICAL: Gross neurological examination did not reveal any focal deficits. SKIN: No rashes. no petechiae. - Labs CBC & Chem 7: 07/10/20 06:35 07/12/20 07:39 Labs: Abnormal Lab Results - Last 24 Hours (Table) 05/01/21 05/01/21 05/02/21 Range/Units 16:55 19:48 00:07 APTT 63.2 H (22.0-30.0) sec BUN (7-17) mg/dL Creatinine (0.52-1.04) mg/dL Glucose (74-99) mg/dL POC Glucose (mg/dL) 270 H 210 H (75-99) mg/dL 07/12/20 07/12/20 07/12/20 Range/Units 06:21 07:39 11:51 APTT (22.0-30.0) sec BUN 40 H (7-17) mg/dL Creatinine 2.09 H (0.52-1.04) mg/dL Glucose 147 H (74-99) mg/dL POC Glucose (mg/dL) 145 H 191 H (75-99) mg/dL Assessment and Plan Assessment: acute systolicCHF exacerbation, ejection fraction 30-35% Acute hypoxic respiratory failure secondary to both non-stemi with chest pain and elevated troponin. Diabetes mellitus Hypertension Hyperlipidemia stage IV chronic kidney disease Plan: this is a pleasant 70 years old female who presents with CHF and non-STEMI. Continue with heparin drip, continue with IV Lasix twice a day. Continue with IV Lasix and heparin drip Cardiology consult, nephrology consult Labs and medication were reviewed.. Continue same treatment. Continue with symptomatic treatment. Resume home medication. Monitor lytes and vitals. DVT and GI prophylaxis. Further recommendations as per clinical course of the patient DVT prophylaxis : Heparin GI Prophylaxis: Pepcid PT/OT: Pending Prognosis is guarded
[2020-07-12] MEDS: MUPIROCIN 2% OINT 22 GM TUBE NASAL SCH (23:22)
[2020-07-13 05:59] LABS: Glucose,Whole Blood 155 mg/dL (75-99)
[2020-07-13] MEDS: INSULIN ASPART (NovoLOG) 100 UNIT/ML VIAL SQ SCH ×4 (06:44→20:50)
[2020-07-13 07:38] LABS: Basophils # (A) 0.1 k/uL (0-0.2); Basophils % (A) 1 %; Eosinophils # (A) 0.2 k/uL (0-0.7); Eosinophils % (A) 2 %; HGB 10.4 gm/dL (11.4-16.0); Lymphocytes % (A) 12 %; MCH 31.8 pg (25.0-35.0); MCHC 33.7 g/dL (31.0-37.0); MCV 94.4 fL (80.0-100.0); Mean Platelet Volume 8.7; Monocytes # (A) 0.5 k/uL (0-1.0); Monocytes % (A) 6 %; Neutrophils # (A) 6.4 k/uL (1.3-7.7); Neutrophils % (A) 78 %; Platelet Count 175 k/uL (150-450); RBC 3.28 m/uL (3.80-5.40); RDW 13.7 % (11.5-15.5); WBC 8.2 k/uL (3.8-10.6)
[2020-07-13 07:51] LABS: Albumin 3.5 g/dL (3.5-5.0); Calcium 8.7 mg/dL (8.4-10.2); Magnesium 1.7 mg/dL (1.6-2.3); Potassium 4.2 mmol/L (3.5-5.1); Total Bilirubin 0.8 mg/dL (0.2-1.3); Total Protein 6.2 g/dL (6.3-8.2)
[2020-07-13] MEDS: SODIUM BICARBONATE TAB 650 MG TAB PO SCH ×3 (08:53→20:50)
[2020-07-13] MEDS: METOPROLOL SUCCINATE (ER) 50 MG TAB.ER.24H PO SCH (08:53)
[2020-07-13] MEDS: GLIMEPIRIDE 2 MG TAB PO SCH ×2 (08:54→20:50)
[2020-07-13] MEDS: LINAGLIPTIN 5 MG TABLET PO SCH (08:54)
[2020-07-13] MEDS: allopurinoL 100 MG TAB PO SCH (08:54)
[2020-07-13] MEDS: ISOSORBIDE MONONITRATE ER 30 MG TAB.ER.24H PO SCH (08:54)
[2020-07-13] MEDS: FAMOTIDINE 20 MG/2 ML VIAL IV SCH (08:54)
[2020-07-13] MEDS: PIOGLITAZONE 30 MG TAB PO SCH (08:54)
[2020-07-13] MEDS: MUPIROCIN 2% OINT 22 GM TUBE NASAL SCH ×2 (08:56→20:50)
[2020-07-13] MEDS ORDERED: ASPIRIN 325 MG TAB PO SCH (09:00)
--- NOTE | 2020-07-13 10:31 | US ---
EXAMINATION TYPE: US carotid duplex BILAT DATE OF EXAM: 07/13/2020 COMPARISON: NONE CLINICAL HISTORY: Pre-Op Cardiac Surgery. PreOp Suboptimal imaging due to vessel location EXAM MEASUREMENTS: RIGHT: Peak Systolic Velocity (PSV) cm/sec ----- Right CCA: 82.0 ----- Right ICA: 102.1 ----- Right ECA: 74.0 ICA/CCA ratio: 1.2 RIGHT: End Diastole cm/sec ----- Right CCA: 14.2 ----- Right ICA: 26.2 ----- Right ECA: 14.5 LEFT: Peak Systolic Velocity (PSV) cm/sec ----- Left CCA: 84.5 ----- Left ICA: 121.1 ----- Left ECA: 98.2 ICA/CCA ratio: 1.4 LEFT: End Diastole cm/sec ----- Left CCA: 15.3 ----- Left ICA: 28.0 ----- Left ECA: 0.0 VERTEBRALS (direction of flow): Right Vertebral: Antegrade Left Vertebral: Antegrade Rhythm: Arrhythmia Plaque seen in bilateral bulbs. No elevated velocities. No significant stenosis. Grayscale images show mild to moderate eccentric plaque bilateral carotid bulb level right greater th an left. Velocity measurements and ratios remain within normal limits. IMPRESSION: Moderate atherosclerotic changes bilaterally right greater than left without hemodynamic ally significant stenosis. Arrhythmia noted during real-time scanning, correlate clinically. Criteria for Assigning % of Stenosis / Diameter reduction (Estimation based on the indirect measurements of the internal carotid artery velocities (ICA PSV). 1. Normal (no stenosis)=ICA PSV < 125 cm/s: ratio < 2.0: ICA EDV<40 cm/s. 2. Less than 50% stenosis=ICA PSV < 125 cm/s: ratio < 2.0: ICA EDV<40 cm/s. 3. 50 to 69% stenosis=ICA PSV of 125 to 230 cm/s: ration 2.0 ? 4.0: ICA EDV 40-100 cm/s. 4. Greater than 70% stenosis to near occlusion= ICA PSV > 230 cm/s: ratio > 4.0: ICA EDV > 100 cm/s. 5. Near occlusion= ICA PSV velocities may be low or undetectable: variable ratio and ICA EDV. 6. Total occlusion=unable to detect flow.
[2020-07-13 11:39] LABS: Glucose,Whole Blood 208 mg/dL (75-99)
--- NOTE | 2020-07-13 12:21 | P.PN ---
Subjective Progress Note Date: 07/13/20 Principal diagnosis: This is a 70-year-old female patient who follows with Dr. Julieta Donovan on an outpatient basis for her primary care service. She has a past medical history significant for a known heart murmur, hypertension, hyperlipidemia, diabetes mellitus type 2 on oral medication, chronic kidney disease stage IIIb/IV, skin cancer to her face, family history of early onset coronary artery disease with her dad having his first heart attack in his mid 40s and she is a lifetime nonsmoker. The patient presented to the emergency department here at [facility] on 07/10/2020 due to complaints of shortness of breath and chest pain which was radiating to her teeth. The patient reports that the shortness of breath and chest pain awoke her from a sleep on night going into Monday and had no relief despite resting. She denies any nausea, vomiting, dizziness, fever, chills, diarrhea, constipation, headache, presyncope or syncope. The patient did report she had a few previous episodes within the last 1-2 months of similar symptoms with shortness of breath and chest pain. She states that she never sought medical attention before as the shortness of breath and chest pain relieved on its own. A 12-lead EKG was completed in the emergency department which showed normal sinus rhythm with STT wave inversions in her anterior lateral leads with a heart rate of 75 BPM. Her laboratory results showed a WBC count of 11.0, hemoglobin 11.3, hematocrit 33.3, platelets 174, sodium 135, potassium 4.6, CO2 19, BUN 37, creatinine 1.80, glucose 270, Pro BNP 14,500, and positive troponin 0.641 and went as high as 12.700. She also had a Procalcitonin level which was 0.23 and her lactic acid level was 1.4. A chest x-ray was completed which the report showed small bilateral pleural effusions and bilateral lung opacities. Due to the patient's presenting symptoms a 2-D echocardiogram was completed which showed an overall left ventricular systolic function to be moderate to severely impaired with an ejection fraction between 30 and 35%, moderate mitral valve regurgitation, and mild tricuspid valve regurgitation. Today 07/12/2020 the patient underwent a cardiac catheterization which demonstrated triple-vessel coronary artery disease with a critical stenosis of 95-99% involving the mid left anterior descending coronary artery, a 60% stenosis to her circumflex coronary artery and a 70-80% stenosis to her mid right coronary artery. Subsequently due to the patient's presenting symptoms, and finding on the 2-D echocardiogram and cardiac c atheterization a consult was placed to Dr. Beverly Pickens from cardiothoracic surgery for further evaluation and treatment recommendations including myocardial revascularization surgery. The patient was seen in follow-up today 07/14/1999 2100 bedside on the cardiac stepdown unit. Currently she is sitting up to the bedside chair, is awake, alert and oriented 3. Denies any complaints of further episodes of chest pain although states she still gets shortness of breath with activity. A bedside FE V1 was completed yesterday which showed a predicted value of 41%. Oxygen saturations are 98% on 2 L nasal cannula and she is achieving 1000 mL on her incentive spirometry with encouragement. As part of the preoperative workup a carotid duplex study was obtained and the report shows moderate atherosclerotic changes bilaterally right greater than left without any hemodynamically significant stenosis. Remote telemetry showing normal sinus rhythm heart rate 78 BPM. She remains on nitroglycerin drip at 5 mcg/m which is being managed by cardiology. A 5 m walk test was completed this morning with the patient with time 1: 3.57 seconds, time 2: 4.55 seconds, time 3: 4.48 seconds. Laboratory results this morning show a WBC count 8.2, hemoglobin 10.4, hematocrit 31.0, platelets 175, sodium 136, potassium 4.2, venous CO2 21, BUN 39, creatinine 1.93, AST 62, ALT 18, and TSH 4.060. A repeat troponin remains pending. Lower extremity ABIs were completed this morning which shows 0.78 to her right leg and 1.30 to her left leg. The patient does report she does get some intermittent claudication type symptoms when walking which is relieved by rest. Objective - Vital Signs Vital signs: Vital Signs Temp 97.9 F 07/13/20 08:00 Pulse 72 07/13/20 08:00 Resp 16 07/13/20 08:00 BP 115/70 07/13/20 08:00 Pulse Ox 98 07/13/20 08:00 Intake & Output 07/12/20 07/13/20 07/13/20 18:59 06:59 18:59 Intake Total 500 306 Output Total 300 400 125 Balance 200 -94 -125 Weight 90.1 kg Intake: IV 150 Intake, IV Titration 306 Amount Nitroglycerin-D5w Pmx 50 6 mg In Dextrose/Water 1 250ml.bag @ 5 MCG/MIN 1.5 mls/hr IV .Q24H CALLY Rx#: [id number] Sodium Chloride 0.9% 1, 300 000 ml @ 75 mls/hr IV . [id number] CALLY Rx#:[id number] Oral 350 Output: Urine 300 400 125 Other: Voiding Method Indwelling Catheter Indwelling Catheter Indwelling Catheter # Voids 1 # Bowel Movements 1 1 - Exam CONSTITUTIONAL: Sitting up to the bedside chair appears comfortable, cooperative, no apparent acute distress RESPIRATORY: Lungs sounds diminished bilaterally, few scattered crackles throughout. Respirations are symmetrical, and nonlabored. Currently on 2 L nasal cannula with oxygen saturations 98%. Able to achieve 1000 mL on incentive spirometry. CARDIOVASCULAR: S1, S2 present, negative for S3 or gallop. Positive systolic murmur heard best to her left sternal border. Regular rate and rhythm, sinus rhythm on remote telemetry heart rate 78 BPM. Palpable peripheral pulses bilaterally. +1 edema present to her bilateral lower extremities. GASTROINTESTINAL: Abdomen soft, nontender, nondistended. Active bowel sounds present 4 quadrants. Tolerating diet. No guarding or rigidity no organomegaly appreciated. GENITOURINARY: Continues to void. INTEGUMENTARY: Skin is warm and dry with evidence of good perfusion. Anterior chest incision well approximated and covered with dry intact dressing. EVH site well approximated without redness or drainage. NEUROLOGIC: Cranial nerves II through XII intact MUSKULOSKELETAL: Able to move all extremities, strength equal bilaterally, gait normal. PSYCHIATRIC: Alert and oriented to person place and time, appropriate affect, intact judgment and insight. - Labs CBC & Chem 7: 07/13/20 06:57 07/13/20 06:57 Labs: Abnormal Lab Results - Last 24 Hours (Table) 07/12/20 07/12/20 07/12/20 Range/Units 11:51 16:51 19:31 RBC (3.80-5.40) m/uL Hgb (11.4-16.0) gm/dL Hct (34.0-46.0) % Sodium (137-145) mmol/L Carbon Dioxide (22-30) mmol/L BUN (7-17) mg/dL Creatinine (0.52-1.04) mg/dL Glucose (74-99) mg/dL POC Glucose (mg/dL) 191 H 201 H (75-99) mg/dL AST (14-36) U/L Total Protein (6.3-8.2) g/dL HDL Cholesterol (40-60) mg/dL Urine Protein 1+ H (Negative) Urine Ketones Trace H (Negative) Urine Blood Trace H (Negative) Urine Bilirubin 1+ H (Negative) Ur Leukocyte Esterase Large H (Negative) Urine RBC 6 H (0-5) /hpf Urine WBC 33 H (0-5) /hpf Urine Bacteria Occasional H (None) /hpf Urine Mucus Many H (None) /hpf 07/12/20 07/13/20 07/13/20 Range/Units 20:18 05:49 06:57 RBC 3.28 L (3.80-5.40) m/uL Hgb 10.4 L (11.4-16.0) gm/dL Hct 31.0 L (34.0-46.0) % Sodium (137-145) mmol/L Carbon Dioxide (22-30) mmol/L BUN (7-17) mg/dL Creatinine (0.52-1.04) mg/dL Glucose (74-99) mg/dL POC Glucose (mg/dL) 219 H 155 H (75-99) mg/dL AST (14-36) U/L Total Protein (6.3-8.2) g/dL HDL Cholesterol (40-60) mg/dL Urine Protein (Negative) Urine Ketones (Negative) Urine Blood (Negative) Urine Bilirubin (Negative) Ur Leukocyte Esterase (Negative) Urine RBC (0-5) /hpf Urine WBC (0-5) /hpf Urine Bacteria (None) /hpf Urine Mucus (None) /hpf 07/13/20 07/13/20 Range/Units 06:57 11:30 RBC (3.80-5.40) m/uL Hgb (11.4-16.0) gm/dL Hct (34.0-46.0) % Sodium 136 L (137-145) mmol/L Carbon Dioxide 21 L (22-30) mmol/L BUN 39 H (7-17) mg/dL Creatinine 1.93 H (0.52-1.04) mg/dL Glucose 155 H (74-99) mg/dL POC Glucose (mg/dL) 208 H (75-99) mg/dL AST 62 H (14-36) U/L Total Protein 6.2 L (6.3-8.2) g/dL HDL Cholesterol 62 H (40-60) mg/dL Urine Protein (Negative) Urine Ketones (Negative) Urine Blood (Negative) Urine Bilirubin (Negative) Ur Leukocyte Esterase (Negative) Urine RBC (0-5) /hpf Urine WBC (0-5) /hpf Urine Bacteria (None) /hpf Urine Mucus (None) /hpf Microbiology - Last 24 Hours (Table) 07/12/20 19:31 Urine Culture - Preliminary Urine,Clean Catch 07/12/20 21:40 Nasal Screen MRSA/MSSA - Preliminary Nasal Swab Assessment and Plan Assessment: 1. Symptomatic multivessel coronary artery disease 2. Non-ST elevated myocardial infarction this admission 3. Acute on chronic systolic congestive heart failure with an overall left ventricular systolic function moderately severely impaired with an ejection fraction between 30 and 35% per 2-D echocardiogram 4. Moderate mitral valve regurgitation 5. Dyspnea on admission, secondary to acute on chronic systolic congestive heart failure, proBNP on admission 14,500 6. Chronic kidney disease stage IIIB/4 7. Diabetes mellitus type 2 8. History of hypertension 9. History of hyperlipidemia 10. History of heart murmur 11. Lifetime nonsmoker 12. Family history of early onset coronary artery disease with her father having a myocardial infarction in his mid 40s Plan: 1. Continue to optimize medical management with aspirin, statin, and beta charity. 2. Nitroglycerin drip management per cardiology recommendations. 3. 5 m walk test was completed this morning with the patient with time 1: 3.57 seconds, time 2: 4.55 seconds, time 3: 4.48 seconds. 4. 2-D echocardiogram ordered for tomorrow 07/14/2020 to reevaluate LV function. 5. Preoperative testing and progress. Once all her preoperative testing has been obtained at [facility] risk score will be calculated in discussed with the patient. 6. Avoid nephrotoxic agents. Nephrology is following for her chronic kidney disease. 7. Medical management and diabetes management per primary care service. 8. Consult pulmonary/critical care medicine for preoperative pulmonary evaluation. Preoperative FEV1 41% of predicted value. 9. More recommendations to follow based on patient's clinical course. Time with Patient: Greater than 30
--- NOTE | 2020-07-13 12:44 | P.PN ---
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 We have been asked to see in consultation for chest pain and congestive heart failure. She was found to be in congestive heart failure and positive cardiac enzymes suggestive of non-ST [place]. Echocardiogram showed severe hypokinesis of the anteroapical wall and apical segments with ejection fraction of 30% Patient underwent cardiac cath on 07/12 which revealed triple-vessel coronary artery disease with critical lesion in the mid LAD. Significant disease in mid RCA and moderate disease in the circumflex. LV function is severely impaired. Because of her kidney dysfunction, at this time, no further interventions were done due to avoid dye overload. 07/13/20: Patient seen and examined at bedside, sitting up in chair. No acute distress. States her breathing has improved. Denies chest pain, shortness of breath, palpitations, lightheadedness or dizziness. Patient currently maintained on nitroglycerin drip, aspirin 81 mg daily, atorvastatin 80 mg nightly, Imdur 30 mg daily, metoprolol succinate 50 mg daily. Able to use incentive spirometer with 1000mL. laboratory data reviewed sodium 136, potassium 4.2, serum creatinine 1.93, triglycerides 102, cholesterol 157, LDL 75, HDL 62, TSH within normal limits. GENERAL: Well-appearing, well-nourished and in no acute distress. NECK: Supple without JVD or thyromegaly. LUNGS: Breath sounds diminished to auscultation bilaterally, bibasilar crackles noted. Respiration equal and unlabored. No wheezes, rales or rhonchi. HEART: Regular rate and rhythm Positive systolic murmur heard best to her left sternal border. No rubs or gallops. S1 and S2 heard. EXTREMITIES: Normal range of motion. 1+ bilateral lower extremity . No clubbing or cyanosis. Peripheral pulses intact. Right radial cardiac cath site clean dry intact, no hematoma, 2+ pulses ASSESSMENT: Symptomatic multivessel coronary artery disease Non-ST elevated myocardial infarction this admission Acute on chronic systolic congestive heart failure LV moderately severely impaired with an ejection fraction between 30 and 35% Moderate mitral valve regurgitation Chronic kidney disease Diabetes mellitus type 2 History of hypertension History of hyperlipidemia Nicotine Dependence PLAN: -Repeat limited echo tomorrow to reevaluate LV function -Discontinue nitro drip -Continue aspirin, statin, beta charity -Nephrology following and managing patient's diuretics -Losartan on hold due to kidney function -CV Surgery is following patient for preopertive testing -Continue Incentive spirometer every hour -Further recommendations pending clinical course Objective - Vital Signs Vital signs: Vital Signs Temp 98.3 F 07/13/20 04:00 Pulse 78 07/13/20 04:00 Resp 17 07/13/20 04:00 BP 147/72 07/13/20 04:00 Pulse Ox 97 07/13/20 04:00 Intake & Output 07/12/20 07/13/20 07/13/20 18:59 06:59 18:59 Intake Total 500 306 Output Total 300 400 125 Balance 200 -94 -125 Weight 90.1 kg Intake: IV 150 Intake, IV Titration 306 Amount Nitroglycerin-D5w Pmx 50 6 mg In Dextrose/Water 1 250ml.bag @ 5 MCG/MIN 1.5 mls/hr IV .Q24H CALLY Rx#: [id number] Sodium Chloride 0.9% 1, 300 000 ml @ 75 mls/hr IV . [id number] CALLY Rx#:[id number] Oral 350 Output: Urine 300 400 125 Other: Voiding Method Indwelling Catheter Indwelling Catheter # Voids 1 # Bowel Movements 1 1 - Labs CBC & Chem 7: 07/13/20 06:57 07/13/20 06:57 Labs: Abnormal Lab Results - Last 24 Hours (Table) 07/12/20 07/12/20 07/12/20 Range/Units 07:39 11:51 16:51 RBC (3.80-5.40) m/uL Hgb (11.4-16.0) gm/dL Hct (34.0-46.0) % Sodium (137-145) mmol/L Carbon Dioxide (22-30) mmol/L BUN 40 H (7-17) mg/dL Creatinine 2.09 H (0.52-1.04) mg/dL Glucose 147 H (74-99) mg/dL POC Glucose (mg/dL) 191 H 201 H (75-99) mg/dL AST (14-36) U/L Total Protein (6.3-8.2) g/dL HDL Cholesterol (40-60) mg/dL Urine Protein (Negative) Urine Ketones (Negative) Urine Blood (Negative) Urine Bilirubin (Negative) Ur Leukocyte Esterase (Negative) Urine RBC (0-5) /hpf Urine WBC (0-5) /hpf Urine Bacteria (None) /hpf Urine Mucus (None) /hpf 07/12/20 07/12/20 07/13/20 Range/Units 19:31 20:18 05:49 RBC (3.80-5.40) m/uL Hgb (11.4-16.0) gm/dL Hct (34.0-46.0) % Sodium (137-145) mmol/L Carbon Dioxide (22-30) mmol/L BUN (7-17) mg/dL Creatinine (0.52-1.04) mg/dL Glucose (74-99) mg/dL POC Glucose (mg/dL) 219 H 155 H (75-99) mg/dL AST (14-36) U/L Total Protein (6.3-8.2) g/dL HDL Cholesterol (40-60) mg/dL Urine Protein 1+ H (Negative) Urine Ketones Trace H (Negative) Urine Blood Trace H (Negative) Urine Bilirubin 1+ H (Negative) Ur Leukocyte Esterase Large H (Negative) Urine RBC 6 H (0-5) /hpf Urine WBC 33 H (0-5) /hpf Urine Bacteria Occasional H (None) /hpf Urine Mucus Many H (None) /hpf 07/13/20 07/13/20 Range/Units 06:57 06:57 RBC 3.28 L (3.80-5.40) m/uL Hgb 10.4 L (11.4-16.0) gm/dL Hct 31.0 L (34.0-46.0) % Sodium 136 L (137-145) mmol/L Carbon Dioxide 21 L (22-30) mmol/L BUN 39 H (7-17) mg/dL Creatinine 1.93 H (0.52-1.04) mg/dL Glucose 155 H (74-99) mg/dL POC Glucose (mg/dL) (75-99) mg/dL AST 62 H (14-36) U/L Total Protein 6.2 L (6.3-8.2) g/dL HDL Cholesterol 62 H (40-60) mg/dL Urine Protein (Negative) Urine Ketones (Negative) Urine Blood (Negative) Urine Bilirubin (Negative) Ur Leukocyte Esterase (Negative) Urine RBC (0-5) /hpf Urine WBC (0-5) /hpf Urine Bacteria (None) /hpf Urine Mucus (None) /hpf
[2020-07-13 12:48] LABS: Hepatitis A Antibody IgM Non-Reactive (Non-Reactive); Hepatitis B Core IgM Non-Reactive (Non-Reactive); Hepatitis B Surface Antigen Non-Reactive (Non-Reactive); Hepatitis C IgG Antibody Non-Reactive (Non-Reactive)
[2020-07-13] MEDS: SODIUM CHLORIDE 0.9% 1,000 ML IV SCH (12:54)
--- NOTE | 2020-07-13 13:42 | PN ---
PROGRESS NOTE The patient is seen for followup for chronic kidney disease NKF stage 4. Her renal function has been fairly stable with creatinine staying at its baseline of about 1.8- 1.9 mg/dL. The patient was admitted with chest pain and found to have a non ST elevation myocardial infarction. She is status post cardiac catheterization done yesterday and was found to have triple-vessel disease with critical lesion in mid LAD and mid RCA. No intervention was done and cardiothoracic surgery has been consulted. The patient also has severely impaired LV function. EF of about 30%. Currently patient has an indwelling Pathak catheter, 24-hour output was about 1.4 L. As mentioned previously, serum creatinine has been stable. Currently patient is maintained on IV fluids at 75 mL an hour. Angiotensin receptor blockers are on hold. Blood pressure systolic is ranging about 110 to 147, although 147 was rare mostly around 114 to 120 mmHg systolic. PHYSICAL EXAMINATION: On examination today, patient is comfortable. She denies any significant complaints. Blood pressure this morning 115/70, heart rate 72 per minute. She is afebrile. EXAMINATION OF THE HEART: S1, S2. EXAMINATION OF THE LUNGS: Decreased breath sounds at bases. Abdomen is soft, nontender. Examination of lower extremities shows edema 1+ bilaterally. DISTRIBUTION ESTIMATOR exam grossly intact. LABS: Labs show sodium 136, potassium 4.2, chloride 106, BUN 39, creatinine 1.93, hemoglobin 10.4 g/dL. UA shows WBCs 33, protein 1+, blood trace . ASSESSMENT: 1. Chronic kidney disease NKF stage 4 with stable renal function. 2. Status post cardiac catheterization. 3. Status post acute non ST elevation myocardial infarction, post cardiac catheterization with triple-vessel disease. 4. Congestive heart failure systolic, ejection fraction 30% to 35%. Discontinue IV fluids. Lasix was held yesterday, currently fairly stable. 5. Metabolic acidosis associated with renal failure. 6. 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 Baseline creatinine about 1.8-2 mg/dL. PLAN: Continue off of angiotensin receptor blockers. Discontinue IV fluids. May continue with the sodium bicarb and repeat labs in a.m. MMODL / IJN: [id number] /
[2020-07-13 16:47] LABS: Glucose,Whole Blood 183 mg/dL (75-99)
[2020-07-13 20:30] LABS: Glucose,Whole Blood 181 mg/dL (75-99)
[2020-07-13] MEDS: ATORVASTATIN 80 MG TAB PO SCH (20:50)
[2020-07-14 06:12] LABS: Glucose,Whole Blood 141 mg/dL (75-99)
[2020-07-14] MEDS: INSULIN ASPART (NovoLOG) 100 UNIT/ML VIAL SQ SCH ×4 (06:19→20:35)
--- NOTE | 2020-07-14 06:21 | P.PN ---
Subjective This is a pleasant 70 years old female with past medical history of diabetes mellitus, hypertension, hyperlipidemia, stage IV chronic kidney disease. He is a patient of Dr. Barnett presents because OF chest pain and progressive dyspnea over few days. Her chest pain started last Monday for 3-4 days ago, it improved gradually but got worse yesterday. Pain was coming and going. Last night it did not go away so decided to come to the hospital. Was about 5/70 severity on the left side, none dictated. Associated with orthopnea and paroxysmal nocturnal dyspnea. She has to sit up to avoid shortness of breath. She has some little cough and phl egm. Pathak catheter was placed in the emergency room. No GI or urinary symptoms initially patient admitted with oxygen supplemented via BiPAP machine including this morning, currently her breathing is improving and she is only on 4 L oxygen and is She denies smoking, alcohol or illicit drugs. Currently she is saturating 96% on 4 L nasal cannula, patient is afebrile. Lap showing WBC of 11.0 K, hemoglobin 11.3, INR is 1.0, sodium 135, creatinine is 1.8. Baseline 1.8-2.2. INR is normal 1.0, trace of BMP and liver enzymes are unremarkable. Troponin is elevated at 0.6 [place] 1[place] [address]. Physical exam, no espinal virus are not detected. Echocardiogram: October ejection fraction 30-35%, several wall motion abnormality chest x-ray: Bilateral lung capacity, edema or infection In the emergency room patient was started on aspirin, heparin drip, lorazepam, furosemide 40 mg IV once. 07/11/2020 Patient with minimal symptoms today however lying in bed most of the time. She has chest pain on and off Hemodynamically stable Creatinine stable at 1.9, nephrology on the case as patient is going for cardiac cath, adequate sodium bicarb today. 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 Nothing by mouth after midnight In the meantime patient remains on heparin drip, IV Lasix. Also she is on aspirin. 07/12/20 Patient remains with minimal symptoms while she is at rest. Chest pain on and off. Hemodynamically stable. And her creatinine only slightly up over the last 2 days 1.8, 1.9 and 2.0 today, lead project manager stopped her IV Lasix and Cozaar as well. Patient underwent cardiac cath today and found to have severe triple vessel coronary artery disease, cardiothoracic surgery team is Consulted. Patient heparin drip was stopped and started on nitroglycerin drip. Lasix, Cozaar and D5W were stopped and patient was started on normal saline at 75 mL/h. May consider to stop normal saline tomorrow 07/13/2020 This is a [id number] years old female presents because of non-STEMI and ischemic cardiomyopathy with ejection fraction 30-35%. Underwent cardiac cath showing severe triple vessel coronary artery disease and isn't currently been evaluated by cardiothoracic surgery for bypass procedure. Also echocardiogram showing moderate mitral regurgitation and moderate pulmonary hypertension Also patient is followed closely by nephrology to follow her chronic kidney disease stage 3-4, currently her creatinine stable at 1.9, Cozaar was held. Hepatitis panel negative. Patient was sitting of double chair with no chest pain and no other symptoms. And she is hemodynamically stable Objective - Vital Signs Vital signs: Vital Signs Temp 97.9 F 07/13/20 08:00 Pulse 68 07/13/20 12:00 Resp 16 07/13/20 12:00 BP 97/57 07/13/20 12:00 Pulse Ox 99 07/13/20 12:00 Intake & Output 07/12/20 07/13/20 07/13/20 18:59 06:59 18:59 Intake Total 500 306 Output Total 300 400 125 Balance 200 -94 -125 Weight 90.1 kg Intake: IV 150 Intake, IV Titration 306 Amount Nitroglycerin-D5w Pmx 50 6 mg In Dextrose/Water 1 250ml.bag @ 5 MCG/MIN 1.5 mls/hr IV .Q24H CALLY Rx#: [id number] Sodium Chloride 0.9% 1, 300 000 ml @ 75 mls/hr IV . [id number] CALLY Rx#:[id number] Oral 350 Output: Urine 300 400 125 Other: Voiding Method Indwelling Catheter Indwelling Catheter Indwelling Catheter # Voids 1 # Bowel Movements 1 1 - Exam GENERAL: The patient is alert and oriented x3, not in any acute distress. Well developed, well nourished. HEENT: Pupils are round and equally reacting to light. EOMI. No scleral icterus. No conjunctival pallor. Normocephalic, atraumatic. No pharyngeal erythema. No thyromegaly. CARDIOVASCULAR: S1 and S2 present. No murmurs, rubs, or gallops. PULMONARY: Chest is clear to auscultation, no wheezing or crackles. ABDOMEN: Soft, nontender, nondistended, normoactive bowel sounds. No palpable organomegaly. MUSCULOSKELETAL: No joint swelling or deformity. EXTREMITIES: No cyanosis, clubbing, or pedal edema. NEUROLOGICAL: Gross neurological examination did not reveal any focal deficits. SKIN: No rashes. no petechiae. - Labs CBC & Chem 7: 07/13/20 06:57 07/13/20 06:57 Labs: Abnormal Lab Results - Last 24 Hours (Table) 07/12/20 07/12/20 07/12/20 Range/Units 16:51 19:31 20:18 RBC (3.80-5.40) m/uL Hgb (11.4-16.0) gm/dL Hct (34.0-46.0) % Sodium (137-145) mmol/L Carbon Dioxide (22-30) mmol/L BUN (7-17) mg/dL Creatinine (0.52-1.04) mg/dL Glucose (74-99) mg/dL POC Glucose (mg/dL) 201 H 219 H (75-99) mg/dL AST (14-36) U/L Total Protein (6.3-8.2) g/dL HDL Cholesterol (40-60) mg/dL Urine Protein 1+ H (Negative) Urine Ketones Trace H (Negative) Urine Blood Trace H (Negative) Urine Bilirubin 1+ H (Negative) Ur Leukocyte Esterase Large H (Negative) Urine RBC 6 H (0-5) /hpf Urine WBC 33 H (0-5) /hpf Urine Bacteria Occasional H (None) /hpf Urine Mucus Many H (None) /hpf 07/13/20 07/13/20 07/13/20 Range/Units 05:49 06:57 06:57 RBC 3.28 L (3.80-5.40) m/uL Hgb 10.4 L (11.4-16.0) gm/dL Hct 31.0 L (34.0-46.0) % Sodium 136 L (137-145) mmol/L Carbon Dioxide 21 L (22-30) mmol/L BUN 39 H (7-17) mg/dL Creatinine 1.93 H (0.52-1.04) mg/dL Glucose 155 H (74-99) mg/dL POC Glucose (mg/dL) 155 H (75-99) mg/dL AST 62 H (14-36) U/L Total Protein 6.2 L (6.3-8.2) g/dL HDL Cholesterol 62 H (40-60) mg/dL Urine Protein (Negative) Urine Ketones (Negative) Urine Blood (Negative) Urine Bilirubin (Negative) Ur Leukocyte Esterase (Negative) Urine RBC (0-5) /hpf Urine WBC (0-5) /hpf Urine Bacteria (None) /hpf Urine Mucus (None) /hpf 07/13/20 Range/Units 11:30 RBC (3.80-5.40) m/uL Hgb (11.4-16.0) gm/dL Hct (34.0-46.0) % Sodium (137-145) mmol/L Carbon Dioxide (22-30) mmol/L BUN (7-17) mg/dL Creatinine (0.52-1.04) mg/dL Glucose (74-99) mg/dL POC Glucose (mg/dL) 208 H (75-99) mg/dL AST (14-36) U/L Total Protein (6.3-8.2) g/dL HDL Cholesterol (40-60) mg/dL Urine Protein (Negative) Urine Ketones (Negative) Urine Blood (Negative) Urine Bilirubin (Negative) Ur Leukocyte Esterase (Negative) Urine RBC (0-5) /hpf Urine WBC (0-5) /hpf Urine Bacteria (None) /hpf Urine Mucus (None) /hpf Microbiology - Last 24 Hours (Table) 07/12/20 19:31 Urine Culture - Preliminary Urine,Clean Catch 07/12/20 21:40 Nasal Screen MRSA/MSSA - Preliminary Nasal Swab Assessment and Plan Assessment: acute systolicCHF exacerbation, ejection fraction 30-35% Acute hypoxic respiratory failure secondary to both non-stemi with chest pain and elevated troponin. Diabetes mellitus Hypertension Hyperlipidemia stage IV chronic kidney disease Plan: this is a pleasant 70 years old female who presents with CHF and non-STEMI. Continue with heparin drip, continue with IV Lasix twice a day. Continue with IV Lasix and heparin drip Cardiology consult, nephrology consult Labs and medication were reviewed.. Continue same treatment. Continue with symptomatic treatment. Resume home medication. Monitor lytes and vitals. DVT and GI prophylaxis. Further recommendations as per clinical course of the patient DVT prophylaxis : Heparin GI Prophylaxis: Pepcid PT/OT: Pending Prognosis is guarded
--- NOTE | 2020-07-14 09:14 | P.PN ---
Subjective Progress Note Date: 07/14/20 Principal diagnosis: This is a 70-year-old female patient who follows with Dr. Julieta Donovan on an outpatient basis for her primary care service. She has a past medical history significant for a known heart murmur, hypertension, hyperlipidemia, diabetes mellitus type 2 on oral medication, chronic kidney disease stage IIIb/IV, skin cancer to her face, family history of early onset coronary artery disease with her dad having his first heart attack in his mid 40s and she is a lifetime nonsmoker. The patient presented to the emergency department here at [facility] on 07/10/2020 due to complaints of shortness of breath and chest pain which was radiating to her teeth. The patient reports that the shortness of breath and chest pain awoke her from a sleep on night going into Monday and had no relief despite resting. She denies any nausea, vomiting, dizziness, fever, chills, diarrhea, constipation, headache, presyncope or syncope. The patient did report she had a few previous episodes within the last 1-2 months of similar symptoms with shortness of breath and chest pain. She states that she never sought medical attention before as the shortness of breath and chest pain relieved on its own. A 12-lead EKG was completed in the emergency department which showed normal sinus rhythm with STT wave inversions in her anterior lateral leads with a heart rate of 75 BPM. Her laboratory results showed a WBC count of 11.0, hemoglobin 11.3, hematocrit 33.3, platelets 174, sodium 135, potassium 4.6, CO2 19, BUN 37, creatinine 1.80, glucose 270, Pro BNP 14,500, and positive troponin 0.641 and went as high as 12.700. She also had a Procalcitonin level which was 0.23 and her lactic acid level was 1.4. A chest x-ray was completed which the report showed small bilateral pleural effusions and bilateral lung opacities. Due to the patient's presenting symptoms a 2-D echocardiogram was completed which showed an overall left ventricular systolic function to be moderate to severely impaired with an ejection fraction between 30 and 35%, moderate mitral valve regurgitation, and mild tricuspid valve regurgitation. Today 07/12/2020 the patient underwent a cardiac catheterization which demonstrated triple-vessel coronary artery disease with a critical stenosis of 95-99% involving the mid left anterior descending coronary artery, a 60% stenosis to her circumflex coronary artery and a 70-80% stenosis to her mid right coronary artery. Subsequently due to the patient's presenting symptoms, and finding on the 2-D echocardiogram and cardiac c atheterization a consult was placed to Dr. Beverly Pickens from cardiothoracic surgery for further evaluation and treatment recommendations including myocardial revascularization surgery. The patient was seen in follow-up today 07/14/20 at her bedside on the cardiac stepdown unit. Currently she is sitting up to the bedside chair, is awake, alert, oriented 3 and is in no acute distress. She denies any further complaints of chest pain or pressure since having her heart cath, although is still having some episodes of shortness of breath with minimal activity. Oxygen saturations are 97% on 2 L nasal cannula and she is achieving 1000 mL on her incentive spirometry with encouragement. A bedside FEV1 was completed on 07/12/2020 which showed a predicted value of 41%. A 5 m walk test was completed with the patient yesterday, the patient tolerated the walk test well with minimal complaints of shortness of breath. Nitroglycerin drip has been discontinued. She remains on aspirin, statin, beta charity and Imdur. A 2-D echocardiogram to reevaluate her LV function is pending. Laboratory results today show her troponin is trending down and is 5.690. A carotid duplex study was completed yesterday which demonstrated moderate atherosclerotic changes bilaterally right greater than left without hemodynamically significant stenosis. Remote telemetry showing normal sinus rhythm heart rate 72 BPM. The patient reports that she slept in the chair last night as she cannot lay flat in bed without being short of breath. Objective - Vital Signs Vital signs: Vital Signs Temp 97.5 F L 07/14/20 04:00 Pulse 74 07/14/20 04:00 Resp 18 07/14/20 04:00 BP 133/63 07/14/20 04:00 Pulse Ox 97 07/14/20 07:37 Intake & Output 07/13/20 07/14/20 07/14/20 18:59 06:59 18:59 Intake Total 240 240 Output Total 125 400 Balance 115 -160 Weight 90.4 kg Intake: Oral 240 240 Output: Urine 125 400 Other: Voiding Method Indwelling Catheter Toilet # Voids 1 - Exam CONSTITUTIONAL: Sitting up to the bedside chair appears comfortable, cooperative, no apparent acute distress. HEENT: Pupils are round and equally reacting to light. No scleral icterus. No JVD, neck is supple. Normocephalic. Mucous membranes are pink and moist. RESPIRATORY: Lungs sounds diminished bilaterally, few scattered crackles throughout. Respirations are symmetrical, and nonlabored. Currently on 2 L nasal cannula with oxygen saturations 97%. Able to achieve 1000 mL on incentive spirometry. CARDIOVASCULAR: S1, S2 present, negative for S3 or gallop. Positive systolic murmur heard best to her left sternal border. Regular rate and rhythm, sinus rhythm on remote telemetry heart rate 72 BPM. Palpable peripheral pulses bilate rally. +1 edema present to her bilateral lower extremities. GASTROINTESTINAL: Abdomen soft, nontender, nondistended. Active bowel sounds present 4 quadrants. Tolerating diet. No guarding or rigidity no organomegaly appreciated. GENITOURINARY: Continues to void. 400 mL output in the last 8 hours. INTEGUMENTARY: Skin is warm and dry. No clubbing or cyanosis is present. NEUROLOGIC: Cranial nerves II through XII intact MUSKULOSKELETAL: Able to move all extremities, strength equal bilaterally, gait normal. PSYCHIATRIC: Alert and oriented to person place and time, appropriate affect, i ntact judgment and insight. - Labs CBC & Chem 7: 07/13/20 06:57 07/13/20 06:57 Labs: Abnormal Lab Results - Last 24 Hours (Table) 07/13/20 07/13/20 07/13/20 Range/Units 11:30 16:44 20:17 POC Glucose (mg/dL) 208 H 183 H 181 H (75-99) mg/dL Troponin I (0.000-0.034) ng/mL 07/14/20 07/14/20 Range/Units 06:07 06:35 POC Glucose (mg/dL) 141 H (75-99) mg/dL Troponin I 5.690 H* (0.000-0.034) ng/mL Microbiology - Last 24 Hours (Table) 07/12/20 19:31 Urine Culture - Preliminary Urine,Clean Catch 07/12/20 21:40 Nasal Screen MRSA/MSSA - Preliminary Nasal Swab Assessment and Plan Assessment: 1. Symptomatic multivessel coronary artery disease 2. Non-ST elevated myocardial infarction this admission 3. Acute on chronic systolic congestive heart failure with an overall left ventricular systolic function moderately severely impaired with an ejection fraction between 30 and 35% per 2-D echocardiogram 4. Moderate mitral valve regurgitation 5. Dyspnea on admission, secondary to acute on chronic systolic congestive heart failure, proBNP on admission 14,500 6. Chronic kidney disease stage IIIB/4 7. Orthopnea 8. Diabetes mellitus type 2 9. History of hypertension 10. History of hyperlipidemia 11. History of heart murmur 12. Lifetime nonsmoker 13. Family history of early onset coronary artery disease with her father having a myocardial infarction in his mid 40s Plan: 1. Continue to optimize medical management with aspirin, statin, and beta block er. 2. Per the cardiothoracic surgery standpoint the patient needs a devoted viability study to assess her anterior wall, preferably a cardiac MR before formulating a plan for myocardial revascularization surgery. 3. 2-D echocardiogram to reevaluate LV function pending, although scheduled today 07/14/2020. 4. Avoid nephrotoxic agents, nephrology following for her chronic kidney disease. 5. An STS risk score has been calculated and discussed with the patient. 6. Medical management and diabetes management per primary care service. 7. More recommendations to follow based on patient's clinical course. Time with Patient: Greater than 30
[2020-07-14] MEDS: ISOSORBIDE MONONITRATE ER 30 MG TAB.ER.24H PO SCH (09:29)
[2020-07-14] MEDS: METOPROLOL SUCCINATE (ER) 50 MG TAB.ER.24H PO SCH (09:29)
[2020-07-14] MEDS: GLIMEPIRIDE 2 MG TAB PO SCH ×2 (09:29→20:38)
[2020-07-14] MEDS: allopurinoL 100 MG TAB PO SCH (09:29)
[2020-07-14] MEDS: ASPIRIN 81 MG PO SCH (09:29)
[2020-07-14] MEDS: FAMOTIDINE 20 MG/2 ML VIAL IV SCH (09:29)
[2020-07-14] MEDS: LINAGLIPTIN 5 MG TABLET PO SCH (09:29)
[2020-07-14] MEDS: SODIUM BICARBONATE TAB 650 MG TAB PO SCH ×3 (09:29→20:38)
[2020-07-14] MEDS: PIOGLITAZONE 30 MG TAB PO SCH (09:30)
[2020-07-14] MEDS: MUPIROCIN 2% OINT 22 GM TUBE NASAL SCH ×2 (09:30→20:38)
--- NOTE | 2020-07-14 11:01 | ECHOF ---
Referral Reason:LV and wall motion MEASUREMENTS -------- HEIGHT: 160.0 cm WEIGHT: 89.8 kg BP: 133/63 RVIDd: 2.5 cm (< 3.3) IVSd: 1.3 cm (0.6 - 1.1) LVIDd: 4.4 cm (3.9 - 5.3) LVPWd: 1.3 cm (0.6 - 1.1) IVSs: 1.8 cm LVIDs: 2.7 cm LVPWs: 1.5 cm FINDINGS -------- Sinus rhythm. Limited Study The left ventricular size is normal. There is mild concentric left ventricular hypertrophy. Overa ll left ventricular systolic function is moderate-severely impaired with, an EF between 30 - 35 %. Basal anteroseptal LV wall motion is hypokinetic. Mid anterior LV wall motion is hypokinetic. A pical anterior LV wall motion is hypokinetic. Apical lateral LV wall motion is hypokinetic. Api luis inferior LV wall motion is hypokinetic. Apical septum LV wall motion is hypokinetic. The right ventricle is normal in size. Lumason used There is no pericardial effusion. CONCLUSIONS -------- 1. There is mild concentric left ventricular hypertrophy. 2. Overall left ventricular systolic function is moderate-severely impaired with, an EF between 30 - 35 %. 3. Basal anteroseptal LV wall motion is hypokinetic. 4. Mid anterior LV wall motion is hypokinetic. 5. Apical anterior LV wall motion is hypokinetic. 6. Apical lateral LV wall motion is hypokinetic. 7. Apical inferior LV wall motion is hypokinetic. 8. Apical septum LV wall motion is hypokinetic. 9. There is no pericardial effusion. CONVENTION MANAGER: Diamond Dean RDCS
[2020-07-14 11:52] LABS: Glucose,Whole Blood 212 mg/dL (75-99)
[2020-07-14 12:41] LABS: Hemoglobin A1C 8.7 % (4.0-6.0)
[2020-07-14 13:32] LABS: Calcium 8.6 mg/dL (8.4-10.2); Potassium 4.1 mmol/L (3.5-5.1)
--- NOTE | 2020-07-14 15:23 | PN ---
PROGRESS NOTE Patient is seen for followup for chronic kidney disease. She is status post cardiac catheterization and coronary artery stent placement, status post acute DE. Serum creatinine has been about 1.9, which is at her baseline. The patient has been evaluated by Cardiothoracic Surgery, as she was found to have triple-vessel disease. No labs from today. Patient denies any chest pains, shortness of breath, nausea, vomiting. She is tolerating oral intake fairly well. Currently Lasix and IV fluids are on hold. PHYSICAL EXAMINATION: On examination today, blood pressure was 116/70, heart rate 65 per minute. She is afebrile. EXAMINATION OF THE HEART: S1 and S2. EXAMINATION OF LUNGS: Bilateral breath sounds are heard. ABDOMEN: Soft, non-tender. Examination of lower extremities shows trace edema bilaterally. DRAWER IN HAND exam is grossly intact. LABS: Labs are not available from today. ASSESSMENT: 1. Chronic kidney disease, NKF stage IV, with stable renal function. 2. Status post cardiac catheterization for acute myocardial infarction. 3. Status post acute [id number] myocardial infarction, post cardiac catheterization, found to have triple-vessel disease, currently being evaluated by Thoracic Surgery. 4. Congestive heart failure, systolic, ejection fraction 30% to 35%. Continue off of IV fluids and Lasix for now. 5. Metabolic acidosis associated with renal failure. 6. Chronic kidney disease, stage 4, secondary to ischemic nephropathy/diabetic kidney disease; baseline creatinine 1.8 to 2 mg/dL. PLAN: Continue off of IV fluids and Lasix. Check labs today. Continue with the sodium bicarb for now. Consider decreasing dose if acidosis is improved. MMODL / IJN: [id number] /
--- NOTE | 2020-07-14 15:24 | P.PN ---
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 We have been asked to see in consultation for chest pain and congestive heart failure. She was found to be in congestive heart failure and positive cardiac enzymes suggestive of non-ST CT. Echocardiogram showed severe hypokinesis of the anteroapical wall and apical segments with ejection fraction of 30%. Troponin 0.6, 1.3, 12.7, 5.6 Patient underwent cardiac cath on 07/12 which revealed triple-vessel coronary artery disease with critical lesion in the mid LAD. Significant disease in mid RCA and moderate disease in the circumflex. LV function is severely impaired. Because of her kidney dysfunction, at this time, no further interventions were done due to avoid dye overload. 07/14/20: Patient seen and examined at bedside, sitting up in chair. No acute distress. States her breathing has improved. Denies chest pain, shortness of breath, palpitations, lightheadedness or dizziness. Patient currently maintained on aspirin 81 mg daily, atorvastatin 80 mg nightly, Imdur 30 mg daily, metoprolol succinate 50 mg daily. Continues to use incentive spirometer with 1000mL. Labs not back from today Limited Echocardiogram EF 30-35%, severe hypokinesis of the anterior apical, anteroseptal wall VITALS: Reviewed GENERAL: Well-appearing, well-nourished and in no acute distress. NECK: Supple without JVD or thyromegaly. LUNGS: Breath sounds diminished to auscultation bilaterally, bibasilar crackles noted. Respiration equal and unlabored. No wheezes, rales or rhonchi. HEART: Regular rate and rhythm Positive systolic murmur heard best to her left sternal border. No rubs or gallops. S1 and S2 heard. EXTREMITIES: Normal range of motion. 1+ bilateral lower extremity . No clubbing or cyanosis. Peripheral pulses intact. Right radial cardiac cath site clean dry intact, no hematoma, 2+ pulses ASSESSMENT: Symptomatic multivessel coronary artery disease Non-ST elevated myocardial infarction this admission Acute on chronic systolic congestive heart failure LV moderately severely impaired with an ejection fraction between 30 and 35% Moderate mitral valve regurgitation Chronic kidney disease Diabetes mellitus type 2 History of hypertension History of hyperlipidemia Nicotine Dependence PLAN: -Limited echo completed as above -Continue aspirin, statin, beta charity -Continue Incentive spirometer every hour -Nephrology following and managing patient's diuretics -Losartan on hold due to kidney function -CV Surgery is following patient for CABG preoperative testing. Per CV surgery the patient needs a devoted viability study to assess her anterior wall, preferably a cardiac MRI before formulating a plan for myocardial revascularization surgery. -From cardiology standpoint we recommend cardiac surgery as soon as possible. Objective - Vital Signs Vital signs: Vital Signs Temp 97.7 F 07/14/20 08:00 Pulse 74 07/14/20 12:00 Resp 18 07/14/20 12:00 BP 148/73 07/14/20 12:00 Pulse Ox 98 07/14/20 12:00 Intake & Output 07/13/20 07/14/20 07/14/20 18:59 06:59 18:59 Intake Total 240 240 540 Output Total 125 400 Balance 115 -160 540 Weight 90.4 kg Intake: Oral 240 240 540 Output: Urine 125 400 Other: Voiding Method Indwelling Catheter Toilet Toilet # Voids 1 - Labs CBC & Chem 7: 07/13/20 06:57 07/14/20 06:35 Labs: Abnormal Lab Results - Last 24 Hours (Table) 07/13/20 07/13/20 07/14/20 Range/Units 16:44 20:17 06:07 POC Glucose (mg/dL) 183 H 181 H 141 H (75-99) mg/dL Hemoglobin A1c (4.0-6.0) % Troponin I (0.000-0.034) ng/mL 07/14/20 07/14/20 07/14/20 Range/Units 06:35 06:35 11:49 POC Glucose (mg/dL) 212 H (75-99) mg/dL Hemoglobin A1c 8.7 H (4.0-6.0) % Troponin I 5.690 H* (0.000-0.034) ng/mL Microbiology - Last 24 Hours (Table) 07/12/20 19:31 Urine Culture - Final Urine,Clean Catch 07/12/20 21:40 Nasal Screen MRSA/MSSA - Final Nasal Swab
[2020-07-14 16:26] LABS: Glucose,Whole Blood 205 mg/dL (75-99)
[2020-07-14] MEDS: METOPROLOL TARTRATE 50 MG TAB PO SCH ×2 (16:55→20:38)
[2020-07-14 20:08] LABS: Glucose,Whole Blood 116 mg/dL (75-99)
[2020-07-14] MEDS: ATORVASTATIN 80 MG TAB PO SCH (20:38)
[2020-07-15] MEDS: INSULIN ASPART (NovoLOG) 100 UNIT/ML VIAL SQ SCH ×4 (06:12→20:49)
[2020-07-15 06:13] LABS: Glucose,Whole Blood 99 mg/dL (75-99)
[2020-07-15 07:31] LABS: Basophils % (A) 0 %; Eosinophils # (A) 0.2 k/uL (0-0.7); Eosinophils % (A) 3 %; HCT 29.3 % (34.0-46.0); HGB 9.8 gm/dL (11.4-16.0); Lymphocytes # (A) 0.8 k/uL (1.0-4.8); Lymphocytes % (A) 13 %; MCH 31.7 pg (25.0-35.0); MCHC 33.5 g/dL (31.0-37.0); MCV 94.8 fL (80.0-100.0); Mean Platelet Volume 8.5; Monocytes # (A) 0.4 k/uL (0-1.0); Monocytes % (A) 6 %; Neutrophils # (A) 5.1 k/uL (1.3-7.7); Neutrophils % (A) 78 %; Platelet Count 180 k/uL (150-450); RBC 3.09 m/uL (3.80-5.40); RDW 13.6 % (11.5-15.5); WBC 6.6 k/uL (3.8-10.6)
[2020-07-15 07:43] LABS: Calcium 8.6 mg/dL (8.4-10.2); Magnesium 1.8 mg/dL (1.6-2.3); Potassium 4.1 mmol/L (3.5-5.1)
[2020-07-15] MEDS: FAMOTIDINE 20 MG/2 ML VIAL IV SCH (07:54)
[2020-07-15] MEDS: allopurinoL 100 MG TAB PO SCH (07:54)
[2020-07-15] MEDS: METOPROLOL TARTRATE 50 MG TAB PO SCH ×2 (07:54→20:49)
[2020-07-15] MEDS: SODIUM BICARBONATE TAB 650 MG TAB PO SCH ×3 (07:54→20:49)
[2020-07-15] MEDS: LINAGLIPTIN 5 MG TABLET PO SCH (07:54)
[2020-07-15] MEDS: ISOSORBIDE MONONITRATE ER 30 MG TAB.ER.24H PO SCH (07:54)
[2020-07-15] MEDS: ASPIRIN 81 MG PO SCH (07:54)
[2020-07-15] MEDS: GLIMEPIRIDE 2 MG TAB PO SCH ×2 (07:54→20:49)
[2020-07-15] MEDS: PIOGLITAZONE 30 MG TAB PO SCH (07:54)
[2020-07-15] MEDS: MUPIROCIN 2% OINT 22 GM TUBE NASAL SCH ×2 (07:55→20:49)
--- NOTE | 2020-07-15 10:10 | P.PN ---
Subjective Progress Note Date: 07/15/20 Principal diagnosis: Symptomatic multivessel coronary artery disease, non-STEMI this admission, acute on chronic systolic congestive heart failure, EF 30-35%, moderate mitral valve regurgitation. Previous medical history of chronic kidney disease stage IIIB/4, diabetes mellitus type 2, hypertension, hyperlipidemia, lifetime nonsmoker, and family history of early onset coronary artery disease with her father having a myocardial infarction in his mid 40s The patient was seen and examined on the cardiac stepdown unit this morning. She denies any chest pain, states shortness of breath is about the same, appears comfortable at rest on 2 L nasal cannula. The patient was seen by Dr. Pickens yesterday who recommended cardiac MRI to assess viability. The patient verbalized understanding and has no new questions at this time. Objective - Vital Signs Vital signs: Vital Signs Temp 97.1 F L 07/15/20 08:04 Pulse 70 07/15/20 08:04 Resp 16 07/15/20 08:04 BP 130/86 07/15/20 08:04 Pulse Ox 100 07/15/20 08:04 Intake & Output 07/14/20 07/15/20 07/15/20 18:59 06:59 18:59 Intake Total 540 Output Total 500 Balance 540 -500 Weight 90.8 kg Intake: Oral 540 Output: Urine 500 Other: Voiding Method Toilet Toilet # Voids 2 - Exam CONSTITUTIONAL: Appears comfortable, cooperative, no acute distress RESPIRATORY: Lungs sounds diminished bilaterally. Respirations even, nonlabored. Currently on 2 L nasal cannula with oxygen saturation %. Able to achieve 1000 mL on incentive spirometry. Strong cough. CARDIOVASCULAR: S1, S2 present. Regular rate and rhythm, sinus rhythm on telemetry. Palpable peripheral pulses bilaterally. 2+ pitting edema present to her lower extremities. No calf pain or tenderness noted. GASTROINTESTINAL: Abdomen soft, nontender, nondistended. Active bowel sounds present 4 quadrants. Tolerating diet. GENITOURINARY: Continues to void INTEGUMENTARY: Skin is warm and dry with evidence of good perfusion. NEUROLOGIC: Cranial nerves II through XII intact MUSKULOSKELETAL: Able to move all extremities, strength equal bilaterally, gait normal PSYCHIATRIC: Alert and oriented to person place and time, appropriate affect, intact judgment and insight - Allied health notes Allied health notes reviewed: nursing - Labs CBC & Chem 7: 07/15/20 06:35 07/15/20 06:35 Labs: Abnormal Lab Results - Last 24 Hours (Table) 07/14/20 07/14/20 07/14/20 Range/Units 06:35 06:35 06:35 RBC (3.80-5.40) m/uL Hgb (11.4-16.0) gm/dL Hct (34.0-46.0) % Lymphocytes # (1.0-4.8) k/uL Sodium 136 L (137-145) mmol/L BUN 38 H (7-17) mg/dL Creatinine 1.89 H (0.52-1.04) mg/dL Glucose 134 H (74-99) mg/dL POC Glucose (mg/dL) (75-99) mg/dL Hemoglobin A1c 8.7 H (4.0-6.0) % Troponin I 5.690 H* (0.000-0.034) ng/mL 07/14/20 07/14/20 07/14/20 Range/Units 11:49 16:24 20:06 RBC (3.80-5.40) m/uL Hgb (11.4-16.0) gm/dL Hct (34.0-46.0) % Lymphocytes # (1.0-4.8) k/uL Sodium (137-145) mmol/L BUN (7-17) mg/dL Creatinine (0.52-1.04) mg/dL Glucose (74-99) mg/dL POC Glucose (mg/dL) 212 H 205 H 116 H (75-99) mg/dL Hemoglobin A1c (4.0-6.0) % Troponin I (0.000-0.034) ng/mL 07/15/20 07/15/20 Range/Units 06:35 06:35 RBC 3.09 L (3.80-5.40) m/uL Hgb 9.8 L (11.4-16.0) gm/dL Hct 29.3 L (34.0-46.0) % Lymphocytes # 0.8 L (1.0-4.8) k/uL Sodium 136 L (137-145) mmol/L BUN 36 H (7-17) mg/dL Creatinine 1.87 H (0.52-1.04) mg/dL Glucose 100 H (74-99) mg/dL POC Glucose (mg/dL) (75-99) mg/dL Hemoglobin A1c (4.0-6.0) % Troponin I (0.000-0.034) ng/mL Microbiology - Last 24 Hours (Table) 07/12/20 19:31 Urine Culture - Final Urine,Clean Catch 07/12/20 21:40 Nasal Screen MRSA/MSSA - Final Nasal Swab Assessment and Plan Assessment: 1. Symptomatic multivessel coronary artery disease, non-STEMI this admission 2. Acute on chronic systolic congestive heart failure, EF 30-35% 3. Moderate mitral valve regurgitation 4. Dyspnea on admission, secondary to acute heart failure, proBNP on admission 14,500 5. Chronic kidney disease stage IV, baseline creatinine around 1.9 per nephrology 6. Diabetes mellitus type 2, hemoglobin A1c is 8.7% 7. Hypertension 8. Hyperlipidemia, treated, cholesterol 157, LDL 75 9. Lifetime nonsmoker 10. Family history of early onset coronary artery disease with her father having a myocardial infarction in his mid 40s Plan: 1. Continue to optimize medical management with aspirin, statin, and beta charity. 2. Heart cath/TTE films reviewed with Dr. Salcido. Recommend SLOANE to assess mitral valve, discussed with Dr. Potter 3. We will add lasix 40 mg IVP BID x 4 doses 4. Increase activity as tolerated 5. Medical management and diabetes management per primary care service. 6. More recommendations to follow Time with Patient: Greater than 30
--- NOTE | 2020-07-15 10:48 | P.ARTDOP ---
Arterial Doppler LOWER EXTREMITY ARTERIAL DOPPLER: DATE OF SERVICE: 07/13/2020 Reason for study: Preop CABG. Doppler waveforms: Multiphasic bilaterally throughout. Pulse volume recording: []. Pressure gradients: Below the knee on the right, but adequate TBI. Ankle-brachial indices: 0.78 on the right and greater than 1 on the left. Toe brachial indices: 0.76 on the right, 0.74 on the left Impression: The left side is normal. Possibly mild infrapopliteal disease on the right. Perfusion pressures appear adequate..
--- NOTE | 2020-07-15 10:52 | P.VSCSTY ---
Greater Saphenous Vein Mapping This is bilateral lower extremity greater saphenous vein mapping. Date of service: 07/13/2020 Vein quality and ultrasound appearance: We see no intraluminal thrombus or wall changes. Vein size groin right : 5.9 x 4.6 groin left: 6.3 x 5.9 High thigh right: 3.7 x 3.6 high thigh left: 6.0 x 4.7 Mid thigh right: 4.8 x 3.7 mid thigh left: 5.4 x 4.8 Above-knee right: 4.1 x 3.5 above-knee left: 4.6 x 4.4 Below knee right: To small below-knee left: 3.9 x 2.8 Mid calf right: 2.2 x 1.5 mid calf left: 2.3 x 2.0 Ankle right: To small ankle left: 2.0 x 1.5 Impression: Usable bilateral greater saphenous vein. Below the knee on the right is too small to use. The left ankle is also quite small..
--- NOTE | 2020-07-15 11:04 | P.PN ---
Subjective This is a pleasant 70-year-old female past medical history significant for diabetes mellitus, hypertension, dyslipidemia and chronic kidney disease. 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 She presented to the hospital with symptoms of unstable angina and was ruled in for non-ST elevated myocardial infarction. Echocardiogram revealed severe hypokinesia of the anteroapical wall and apical segments with ejection fraction of 30%, repeat yesterday reveals EF of 30-35%. She underwent cardiac catheterization revealing triple-vessel coronary artery disease with critical lesion in the mid LAD, significant disease in the mid RCA and moderate disease in the circumflex artery. She has been seen in evaluation by CT surgery. She is seen and examined sitting up in the recliner in no acute distress. She continues to have shortness of breath with exertion and is comfortable at rest. She has had no symptoms of chest discomfort. Repeat EKG this morning reveals sinus mechanism with ongoing persistent T-wave inversions in the precordial leads. No significant changes noted. Blood pressure 130/86 heart rate 70 afebrile maintaining oxygen saturation on nasal cannula. Laboratory data reviewed, WBC 6.6, hemoglobin 9.8, platelets 180, sodium 136, potassium 4.1, creatinine 1.87 and magnesium 1.8. Currently maintained on aspirin 81 mg daily, atorvastatin 80 mg daily, Imdur 30 mg daily and metoprolol 50 mg twice a day. GENERAL: Well-appearing, well-nourished and in no acute distress. NECK: Supple without JVD or thyromegaly. LUNGS: Breath sounds clear to auscultation bilaterally. Respiration equal and unlabored. No wheezes, rales or rhonchi. HEART: Regular rate and rhythm with systolic ejection murmur at the left sternal border, no rubs or gallops. S1 and S2 heard. EXTREMITIES: Normal range of motion, ongoing bilateral lower extremity 1+ pitting edema. No clubbing or cyanosis. Peripheral pulses intact. ASSESSMENT Non-ST elevated myocardial infarction Acute systolic heart failure Mitral regurgitation, moderate Unstable angina Multivessel coronary artery disease Chronic kidney disease, creatinine at baseline Hypertension Dyslipidemia Diabetes mellitus Chronic nicotine dependence PLAN CT surgery is requesting a SLOANE, this will be performed tomorrow per Dr. Pompa. NPO after midnight tonight. Losartan on hold due to renal function. Further recommendations to follow based on clinical course. Nurse Practitioner note has been reviewed, I agree with a documented findings and plan of care. Patient was seen and examined. Objective - Vital Signs Vital signs: Vital Signs Temp 97.1 F L 07/15/20 08:04 Pulse 70 07/15/20 08:04 Resp 16 07/15/20 08:04 BP 130/86 07/15/20 08:04 Pulse Ox 100 07/15/20 08:04 Intake & Output 07/14/20 07/15/20 07/15/20 18:59 06:59 18:59 Intake Total 540 Output Total 500 Balance 540 -500 Weight 90.8 kg Intake: Oral 540 Output: Urine 500 Other: Voiding Method Toilet Toilet # Voids 2 - Labs CBC & Chem 7: 07/15/20 06:35 07/15/20 06:35 Labs: Abnormal Lab Results - Last 24 Hours (Table) 07/14/20 07/14/20 07/14/20 Range/Units 06:35 06:35 06:35 RBC (3.80-5.40) m/uL Hgb (11.4-16.0) gm/dL Hct (34.0-46.0) % Lymphocytes # (1.0-4.8) k/uL Sodium 136 L (137-145) mmol/L BUN 38 H (7-17) mg/dL Creatinine 1.89 H (0.52-1.04) mg/dL Glucose 134 H (74-99) mg/dL POC Glucose (mg/dL) (75-99) mg/dL Hemoglobin A1c 8.7 H (4.0-6.0) % Troponin I 5.690 H* (0.000-0.034) ng/mL 07/14/20 07/14/20 07/14/20 Range/Units 11:49 16:24 20:06 RBC (3.80-5.40) m/uL Hgb (11.4-16.0) gm/dL Hct (34.0-46.0) % Lymphocytes # (1.0-4.8) k/uL Sodium (137-145) mmol/L BUN (7-17) mg/dL Creatinine (0.52-1.04) mg/dL Glucose (74-99) mg/dL POC Glucose (mg/dL) 212 H 205 H 116 H (75-99) mg/dL Hemoglobin A1c (4.0-6.0) % Troponin I (0.000-0.034) ng/mL 07/15/20 07/15/20 Range/Units 06:35 06:35 RBC 3.09 L (3.80-5.40) m/uL Hgb 9.8 L (11.4-16.0) gm/dL Hct 29.3 L (34.0-46.0) % Lymphocytes # 0.8 L (1.0-4.8) k/uL Sodium 136 L (137-145) mmol/L BUN 36 H (7-17) mg/dL Creatinine 1.87 H (0.52-1.04) mg/dL Glucose 100 H (74-99) mg/dL POC Glucose (mg/dL) (75-99) mg/dL Hemoglobin A1c (4.0-6.0) % Troponin I (0.000-0.034) ng/mL Microbiology - Last 24 Hours (Table) 07/12/20 19:31 Urine Culture - Final Urine,Clean Catch 07/12/20 21:40 Nasal Screen MRSA/MSSA - Final Nasal Swab
[2020-07-15] MEDS: FUROSEMIDE 10 MG/ML 4 ML VIAL IV SCH ×2 (11:26→20:49)
[2020-07-15 11:57] LABS: Glucose,Whole Blood 206 mg/dL (75-99)
--- NOTE | 2020-07-15 14:21 | PN ---
PROGRESS NOTE The patient is seen for followup for chronic kidney disease. The patient is a status post cardiac catheterization for acute non ST elevation myocardial infarction and was found to have triple-vessel disease. Renal function has been stable. The patient has been evaluated by cardiothoracic surgery. Patient denies any chest pains or shortness of breath. PHYSICAL EXAMINATION: On examination today, blood pressure was 130/86, heart rate 70 per minute. She is afebrile. EXAMINATION OF THE HEART: S1, S2. EXAMINATION OF THE LUNGS: Bilateral breath sounds are heard. Abdomen is soft, nontender. Examination of lower extremities shows edema 1+ bilaterally. LABS: Labs show hemoglobin 9.8, sodium 136, potassium 4.1, BUN 36, creatinine 1.87. ASSESSMENT: 1. Chronic kidney disease NKF stage 4-5, currently stable. 2. Mild volume overload. Will resume loop diuretics. 3. Metabolic acidosis, maintained on sodium bicarb. 4. Cardiomyopathy, ejection fraction 30% to 35%. 5. Type 2 diabetes. PLAN: Resume diuretics. It looks like patient has already been started on IV Lasix for a total of 4 doses, which is appropriate and we can switch her to p.o. diuretics after that. Initially, patient did receive IV fluids and was diuresed as well. MMODL / IJN: [id number] /
[2020-07-15 16:38] LABS: Glucose,Whole Blood 188 mg/dL (75-99)
[2020-07-15 20:01] LABS: Glucose,Whole Blood 182 mg/dL (75-99)
[2020-07-15] MEDS: ATORVASTATIN 80 MG TAB PO SCH (20:49)
[2020-07-16 06:17] LABS: Glucose,Whole Blood 88 mg/dL (75-99)
[2020-07-16] MEDS: INSULIN ASPART (NovoLOG) 100 UNIT/ML VIAL SQ SCH ×4 (06:20→21:19)
[2020-07-16] MEDS: METOPROLOL TARTRATE 50 MG TAB PO SCH ×2 (08:15→21:19)
[2020-07-16] MEDS: ASPIRIN 81 MG PO SCH (08:15)
[2020-07-16] MEDS: FAMOTIDINE 20 MG/2 ML VIAL IV SCH (08:16)
[2020-07-16] MEDS: SODIUM BICARBONATE TAB 650 MG TAB PO SCH ×3 (08:16→21:19)
[2020-07-16] MEDS: LINAGLIPTIN 5 MG TABLET PO SCH (08:16)
[2020-07-16] MEDS: GLIMEPIRIDE 2 MG TAB PO SCH ×2 (08:16→21:19)
[2020-07-16] MEDS: FUROSEMIDE 10 MG/ML 4 ML VIAL IV SCH ×2 (08:16→21:19)
[2020-07-16] MEDS: ISOSORBIDE MONONITRATE ER 30 MG TAB.ER.24H PO SCH (08:16)
[2020-07-16] MEDS: allopurinoL 100 MG TAB PO SCH (08:16)
[2020-07-16] MEDS: MUPIROCIN 2% OINT 22 GM TUBE NASAL SCH ×2 (08:17→21:20)
[2020-07-16] MEDS: PIOGLITAZONE 30 MG TAB PO SCH (08:17)
[2020-07-16] MEDS ORDERED: fentaNYL (PF) 50 MCG/ML 2 ML AMP ONE (08:30)
[2020-07-16] MEDS ORDERED: SODIUM CHLORIDE 0.9% 250 ML IV ONE (08:45)
[2020-07-16] MEDS ORDERED: MIDAZOLAM 2 MG/2 ML VIAL IV ONE (08:49)
[2020-07-16] MEDS ORDERED: BENZOCAINE SPRAY 1 CAN TOPICAL ONE (08:49)
[2020-07-16] MEDS ORDERED: fentaNYL (PF) 50 MCG/ML 2 ML AMP IV ONE (08:51)
[2020-07-16 11:37] LABS: Glucose,Whole Blood 126 mg/dL (75-99)
--- NOTE | 2020-07-16 11:49 | P.PN ---
Subjective Progress Note Date: 07/16/20 Principal diagnosis: Symptomatic multivessel coronary artery disease, non-STEMI this admission, acute on chronic systolic congestive heart failure, EF 30-35%, moderate mitral valve regurgitation. Previous medical history of chronic kidney disease stage IIIB/4, diabetes mellitus type 2, hypertension, hyperlipidemia, lifetime nonsmoker, and family history of early onset coronary artery disease with her father having a myocardial infarction in his mid 40s The patient was seen and examined on the cardiac stepdown unit this morning. She denies any chest pain, states shortness of breath is about the same, appears comfortable at rest on 2 L nasal cannula. She had a SLOANE this am, reviewed with Dr. Garnica. Objective - Vital Signs Vital signs: Vital Signs Temp 97.9 F 07/16/20 08:13 Pulse 64 07/16/20 09:39 Resp 16 07/16/20 09:39 BP 130/60 07/16/20 09:39 Pulse Ox 94 L 07/16/20 09:39 Intake & Output 07/15/20 07/16/20 07/16/20 18:59 06:59 18:59 Intake Total 480 50 Output Total 850 Balance -370 50 Weight 89.4 kg Intake: IV 50 Oral 480 0 Output: Urine 850 Other: Voiding Method Toilet Toilet # Voids 3 1 - Exam CONSTITUTIONAL: Appears comfortable, cooperative, no acute distress RESPIRATORY: Lungs sounds diminished bilaterally. Respirations even, nonlabored. Currently on room air with oxygen saturation 97%. Able to achieve 1500 mL on incentive spirometry. Strong cough. CARDIOVASCULAR: S1, S2 present. Regular rate and rhythm, sinus rhythm on telemetry. Palpable peripheral pulses bilaterally. 2+ pitting edema present to her lower extremities. No calf pain or tenderness noted. GASTROINTESTINAL: Abdomen soft, nontender, nondistended. Active bowel sounds p resent 4 quadrants. Tolerating diet. GENITOURINARY: Continues to void INTEGUMENTARY: Skin is warm and dry with evidence of good perfusion. NEUROLOGIC: Cranial nerves II through XII intact MUSKULOSKELETAL: Able to move all extremities, strength equal bilaterally, gait normal PSYCHIATRIC: Alert and oriented to person place and time, appropriate affect, intact judgment and insight - Allied health notes Allied health notes reviewed: nursing - Labs CBC & Chem 7: 07/15/20 06:35 07/15/20 06:35 Labs: Abnormal Lab Results - Last 24 Hours (Table) 07/15/20 07/15/20 07/15/20 Range/Units 11:56 16:37 19:54 POC Glucose (mg/dL) 206 H 188 H 182 H (75-99) mg/dL Assessment and Plan Assessment: 1. Symptomatic multivessel coronary artery disease, non-STEMI this admission 2. Acute on chronic systolic congestive heart failure, EF 30-35% 3. Moderate mitral valve regurgitation on SLOANE 4. Dyspnea on admission, secondary to acute heart failure, proBNP on admission 14,500 5. Chronic kidney disease stage IV, baseline creatinine around 1.9 per nephrology 6. Diabetes mellitus type 2, hemoglobin A1c is 8.7% 7. Hypertension 8. Hyperlipidemia, treated, cholesterol 157, LDL 75 9. Lifetime nonsmoker 10. Family history of early onset coronary artery disease with her father having a myocardial infarction in his mid 40s Plan: 1. Continue to optimize medical management with aspirin, statin, and beta charity. 2. Heart cath/TTE/SLOANE films reviewed with Dr. Garnica 3. Continue lasix 40 mg IVP BID x 4 doses 4. Increase activity as tolerated 5. Medical management and diabetes management per primary care service. 6. Our plan is for CABG with mitral valve repair, timing to be determined 7. Patient will need dental clearance for valve surgery. CT without contrast of facial bones ordered with panorex reconstruction. Will consult dentist for clearance 8. Pulmonology consulted for preop clearance. 9. More recommendations to follow Time with Patient: Greater than 30
--- NOTE | 2020-07-16 14:34 | PN ---
PROGRESS NOTE Patient is seen for followup for chronic kidney disease. She is being evaluated for coronary artery bypass surgery. She was admitted to the hospital with acute TX and noted to be in congestive heart failure. Patient was initially diuresed and then diuretics were held. She also received IV fluids for a short period of time. Yesterday, diuretics were restarted. Overall, patient is doing well. She denies any significant complaints. PHYSICAL EXAMINATION: Blood pressure is 130/60, heart rate 64 per minute. She is afebrile. EXAMINATION OF THE HEART: S1, S2. EXAMINATION OF THE LUNGS: Bilateral breath sounds are heard. Decreased breath sounds at bases. Abdomen is soft, nontender. Examination of lower extremities shows edema 2+ bilaterally. LABS: Labs from yesterday show serum creatinine 1.87. On 07/15/2020, hemoglobin was 9.8 g/dL. ASSESSMENT: 1. Chronic kidney disease NKF stage 4, currently stable, secondary to nephrosclerosis and diabetic kidney disease. 2. Metabolic acidosis maintained on oral sodium bicarb. 3. Volume overload restarted on diuretics. 4. Congestive heart failure, acute on top of chronic systolic. 5. Cardiomyopathy, ejection fraction 30% to 35%. PLAN: Continue to diurese patient. Check labs in a.m. MMODL / IJN: [id number] /
--- NOTE | 2020-07-16 14:40 | CT ---
EXAMINATION TYPE: CT facial bones wo con DATE OF EXAM: 07/16/2020 COMPARISON: None. HISTORY: Pre OP scan for dental consult. CT DLP: 375.1 mGycm Automated exposure control for dose reduction was used. TECHNIQUE: CT scan of the facial bones is performed without contrast, axial images are obtained, srinivasan nal reformatted images are also reviewed. FINDINGS: Paranasal sinuses are grossly clear. Ostiomeatal complexes patent bilaterally. Nasal septum is deviated to left of midline. There are multiple cavitary fillings in the bilateral premolar and molar teeth causing streak artifac t limiting evaluation at these levels. The mandible is intact. Temporomandibular joints are maintaine d bilaterally. No suspicious focal osseous lesions. IMPRESSION: As above. .
[2020-07-16 16:48] LABS: Glucose,Whole Blood 235 mg/dL (75-99)
[2020-07-16 20:41] LABS: Glucose,Whole Blood 185 mg/dL (75-99)
[2020-07-16] MEDS: ATORVASTATIN 80 MG TAB PO SCH (21:19)
[2020-07-17 06:14] LABS: Glucose,Whole Blood 122 mg/dL (75-99)
[2020-07-17] MEDS: INSULIN ASPART (NovoLOG) 100 UNIT/ML VIAL SQ SCH ×4 (06:20→20:39)
[2020-07-17 07:59] LABS: HCT 31.1 % (34.0-46.0); HGB 10.5 gm/dL (11.4-16.0); MCH 31.5 pg (25.0-35.0); MCHC 33.6 g/dL (31.0-37.0); MCV 93.8 fL (80.0-100.0); Mean Platelet Volume 8.3; Platelet Count 237 k/uL (150-450); RBC 3.31 m/uL (3.80-5.40); RDW 13.5 % (11.5-15.5); WBC 6.1 k/uL (3.8-10.6)
[2020-07-17 08:11] LABS: Potassium 3.8 mmol/L (3.5-5.1)
--- NOTE | 2020-07-17 08:55 | P.PN ---
Subjective Progress Note Date: 07/17/20 Principal diagnosis: Symptomatic multivessel coronary artery disease, non-STEMI this admission, acute on chronic systolic congestive heart failure, EF 30-35%, moderate mitral valve regurgitation. Previous medical history of chronic kidney disease stage IV, diabetes mellitus type 2, hypertension, hyperlipidemia, lifetime nonsmoker with severe obstruction and preoperative FEV1 41% of predicted, and family history of early onset coronary artery disease with her father having a myocardial infarction in his mid 40s The patient was seen and examined on the cardiac stepdown unit this morning, sitting up in a recliner eating breakfast in no acute distress. She denies any chest pain, states shortness of breath is getting better, appears comfortable at rest on room air. Facial CT completed yesterday, await dental clearance. Objective - Vital Signs Vital signs: Vital Signs Temp 97.6 F 07/17/20 04:00 Pulse 68 07/17/20 04:00 Resp 18 07/17/20 04:00 BP 135/63 07/17/20 04:00 Pulse Ox 95 07/17/20 04:00 Intake & Output 07/16/20 07/17/20 07/17/20 18:59 06:59 18:59 Intake Total 290 Output Total 1100 Balance 290 -1100 Weight 89.4 kg 87.5 kg Intake: IV 50 Oral 240 Output: Urine 1100 Other: Voiding Method Toilet Toilet # Voids 1 1 - Exam CONSTITUTIONAL: Appears comfortable, cooperative, no acute distress RESPIRATORY: Lungs sounds diminished bilaterally. Respirations even, n onlabored. Currently on room air with oxygen saturation 95%. Able to achieve 1500 mL on incentive spirometry. Strong cough. CARDIOVASCULAR: S1, S2 present. Regular rate and rhythm, sinus rhythm on telemetry. Palpable peripheral pulses bilaterally. Bilateral lower extremity edema present. No calf pain or tenderness noted. GASTROINTESTINAL: Abdomen soft, nontender, nondistended. Active bowel sounds present 4 quadrants. Tolerating diet. GENITOURINARY: Continues to void INTEGUMENTARY: Skin is warm and dry with evidence of good perfusion. NEUROLOGIC: Cranial nerves II through XII intact MUSKULOSKELETAL: Able to move all extremities, strength equal bilaterally, gait normal PSYCHIATRIC: Alert and oriented to person place and time, appropriate affect, intact judgment and insight - Allied health notes Allied health notes reviewed: nursing - Labs CBC & Chem 7: 07/17/20 07:04 07/17/20 07:04 Labs: Abnormal Lab Results - Last 24 Hours (Table) 07/16/20 07/16/20 07/16/20 Range/Units 11:35 16:46 20:39 RBC (3.80-5.40) m/uL Hgb (11.4-16.0) gm/dL Hct (34.0-46.0) % Carbon Dioxide (22-30) mmol/L BUN (7-17) mg/dL Creatinine (0.52-1.04) mg/dL Glucose (74-99) mg/dL POC Glucose (mg/dL) 126 H 235 H 185 H (75-99) mg/dL 07/17/20 07/17/20 07/17/20 Range/Units 06:13 07:04 07:04 RBC 3.31 L (3.80-5.40) m/uL Hgb 10.5 L (11.4-16.0) gm/dL Hct 31.1 L (34.0-46.0) % Carbon Dioxide 32 H (22-30) mmol/L BUN 34 H (7-17) mg/dL Creatinine 1.78 H (0.52-1.04) mg/dL Glucose 126 H (74-99) mg/dL POC Glucose (mg/dL) 122 H (75-99) mg/dL Assessment and Plan Assessment: 1. Symptomatic multivessel coronary artery disease, non-STEMI this admission 2. Acute on chronic systolic congestive heart failure, EF 30-35% 3. Moderate mitral valve regurgitation on SLOANE 4. Dyspnea on admission, secondary to acute heart failure, proBNP on admission 14,500 5. Chronic kidney disease stage IV, baseline creatinine around 1.9 per nephrology 6. Diabetes mellitus type 2, hemoglobin A1c is 8.7% 7. Hypertension 8. Hyperlipidemia, treated, cholesterol 157, LDL 75 9. Lifetime nonsmoker 10. Severe obstruction, preoperative FEV1 41% of predicted with moderate increased operative risk per pulmonology 11. Family history of early onset coronary artery disease with her father having a myocardial infarction in his mid 40s Plan: 1. Continue to optimize medical management with aspirin, statin, and beta charity. 2. Heart cath/TTE/SLOANE films reviewed with Dr. Garnica 3. Continue lasix 40 mg daily per nephrology 4. Increase activity as tolerated 5. Medical management and diabetes management per primary care service. 6. Our plan is for CABG with mitral valve repair, timing to be determined 7. Patient will need dental clearance for valve surgery. CT without contrast of facial bones with panorex reconstruction completed. Await dentist for clearance 8. Pulmonology states moderate increased operative risk 9. More recommendations to follow Time with Patient: Greater than 30
[2020-07-17] MEDS: ISOSORBIDE MONONITRATE ER 30 MG TAB.ER.24H PO SCH (08:57)
[2020-07-17] MEDS: SODIUM BICARBONATE TAB 650 MG TAB PO SCH (08:57)
[2020-07-17] MEDS: METOPROLOL TARTRATE 50 MG TAB PO SCH ×2 (08:57→20:38)
[2020-07-17] MEDS: allopurinoL 100 MG TAB PO SCH (08:57)
[2020-07-17] MEDS: GLIMEPIRIDE 2 MG TAB PO SCH ×2 (08:57→20:38)
[2020-07-17] MEDS: ASPIRIN 81 MG PO SCH (08:57)
[2020-07-17] MEDS: PIOGLITAZONE 30 MG TAB PO SCH (08:57)
[2020-07-17] MEDS: FAMOTIDINE 20 MG/2 ML VIAL IV SCH (08:57)
[2020-07-17] MEDS: LINAGLIPTIN 5 MG TABLET PO SCH (08:57)
[2020-07-17] MEDS: MUPIROCIN 2% OINT 22 GM TUBE NASAL SCH ×2 (08:58→20:39)
[2020-07-17] MEDS: FUROSEMIDE 10 MG/ML 4 ML VIAL IV SCH (09:03)
--- NOTE | 2020-07-17 10:06 | P.PN ---
Subjective This is a pleasant 70-year-old female past medical history significant for diabetes mellitus, hypertension, dyslipidemia and chronic kidney disease. 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 She presented to the hospital with symptoms of unstable angina and was ruled in for non-ST elevated myocardial infarction. Echocardiogram revealed severe hypokinesia of the anteroapical wall and apical segments with ejection fraction of 30%, repeat yesterday reveals EF of 30-35%. She underwent cardiac catheterization revealing triple-vessel coronary artery disease with critical lesion in the mid LAD, significant disease in the mid RCA and moderate disease in the circumflex artery. She has been seen in evaluation by CT surgery. She is seen and examined sitting up in the recliner in no acute distress. She continues to have shortness of breath with exertion and is comfortable at rest. She has had no symptoms of chest discomfort. Repeat EKG this morning reveals sinus mechanism with ongoing persistent T-wave inversions in the precordial leads. No significant changes noted. Blood pressure 130/86 heart rate 70 afebrile maintaining oxygen saturation on nasal cannula. Laboratory data reviewed, WBC 6.6, hemoglobin 9.8, platelets 180, sodium 136, potassium 4.1, creatinine 1.87 and magnesium 1.8. Currently maintained on aspirin 81 mg daily, atorvastatin 80 mg daily, Imdur 30 mg daily and metoprolol 50 mg twice a day. 07/17/2020 Pt is seen and examined sitting up in the recliner in no acute distress. She de nies chest pain, shortness of breath or palpitations. She underwent a CT of her face yesterday revealing multiple cavitary fillings in the bilateral premolar molar teeth causing streak artifact limiting evaluation, the mandibles intact, temporomandibular joints maintained bilaterally with no suspicious focal osseus lesions. She is scheduled to have a dental evaluation today. Blood pressure 132/62 heart rate 75 afebrile maintaining oxygen saturation on room air. Laboratory data reviewed, WBC 6.1, hemoglobin 10.5, platelets 237, sodium 138, potassium 3.8 and creatinine 1.78. She underwent a SLOANE yesterday revealing GENERAL: Well-appearing, well-nourished and in no acute distress. NECK: Supple without JVD or thyromegaly. LUNGS: Breath sounds clear to auscultation bilaterally. Respiration equal and unlabored. No wheezes, rales or rhonchi. HEART: Regular rate and rhythm with systolic ejection murmur at the left sternal border, no rubs or gallops. S1 and S2 heard. EXTREMITIES: Normal range of motion, ongoing bilateral lower extremity 1+ pitting edema. No clubbing or cyanosis. Peripheral pulses intact. ASSESSMENT Non-ST elevated myocardial infarction Acute systolic heart failure Mitral regurgitation, moderate Unstable angina Multivessel coronary artery disease Chronic kidney disease, creatinine at baseline Hypertension Dyslipidemia Diabetes mellitus Chronic nicotine dependence PLAN Continue pre-operative evaluation. CT surgery timing to be determined. Awaiting dental evaluation. Losartan on hold due to renal function. Further recommendations to follow based on clinical course. Nurse Practitioner note has been reviewed, I agree with a documented findings and plan of care. Patient was seen and examined. Objective - Vital Signs Vital signs: Vital Signs Temp 98.0 F 07/17/20 08:55 Pulse 75 07/17/20 08:55 Resp 16 07/17/20 08:55 BP 132/62 07/17/20 08:55 Pulse Ox 98 07/17/20 08:55 Intake & Output 07/16/20 07/17/20 07/17/20 18:59 06:59 18:59 Intake Total 290 Output Total 1100 Balance 290 -1100 Weight 89.4 kg 87.5 kg Intake: IV 50 Oral 240 Output: Urine 1100 Other: Voiding Method Toilet Toilet # Voids 1 1 - Labs CBC & Chem 7: 07/17/20 07:04 07/17/20 07:04 Labs: Abnormal Lab Results - Last 24 Hours (Table) 07/16/20 07/16/20 07/16/20 Range/Units 11:35 16:46 20:39 RBC (3.80-5.40) m/uL Hgb (11.4-16.0) gm/dL Hct (34.0-46.0) % Carbon Dioxide (22-30) mmol/L BUN (7-17) mg/dL Creatinine (0.52-1.04) mg/dL Glucose (74-99) mg/dL POC Glucose (mg/dL) 126 H 235 H 185 H (75-99) mg/dL 07/17/20 07/17/20 07/17/20 Range/Units 06:13 07:04 07:04 RBC 3.31 L (3.80-5.40) m/uL Hgb 10.5 L (11.4-16.0) gm/dL Hct 31.1 L (34.0-46.0) % Carbon Dioxide 32 H (22-30) mmol/L BUN 34 H (7-17) mg/dL Creatinine 1.78 H (0.52-1.04) mg/dL Glucose 126 H (74-99) mg/dL POC Glucose (mg/dL) 122 H (75-99) mg/dL
--- NOTE | 2020-07-17 11:46 | P.CNPUL ---
History of Present Illness Consult date: 07/17/20 Chief complaint: Preoperative pulmonary evaluation History of present illness: 70-year-old female patient who is being seen for preop pulmonary clearance regarding coronary artery bypass surgery. The patient has multivessel coronary artery disease and she is post family. Morbid conditions include hypertension, hyperlipidemia, diabetes mellitus type 2 and chronic kidney disease stage IIIB/4. She presented to the hospital because of worsening shortness of breath and chest pain. She was ruled in for non-STEMI. Her troponins were elevated and it peaked at 12.7. Pro-calcitonin level was 0.23. Lactic acid level was 1.4. Chest x-ray showed small bilateral pleural effusions. There was also evidence of pulmonary vascular congestion. Cardiac catheterization was performed and please refer to the results as the patient was found to have triple-vessel disease with critical stenosis involving the LAD 60% in the circumflex, 70-80% and RCA. Patient has already received COVID-19 vaccination. Patient has no complaints and currently she is free of any chest pain. Echocardiogram was done and the patient has an ejection fraction of 30-35% and moderate mitral regurgitation. She is currently on room air oxygen and her pulse ox is around 98%. Review of Systems Constitutional: Denies chills, Denies fever Eyes: denies as per HPI, denies blurred vision, denies bulging eye, denies decreased vision, denies diplopia, denies discharge, denies dry eye, denies irritation, denies itching, denies pain, denies photophobia, denies loss of peripheral vision, denies loss of vision, denies tunnel vision/blind spots Ears, nose, mouth and throat: Denies headache, Denies sore throat Breasts: absent: as per HPI, change in shape, gynecomastia, masses, nipple discharge, pain, skin changes, swelling Cardiovascular: Reports decreased exercise tolerance, Reports dyspnea on exertion Respiratory: Reports as per HPI, Reports dyspnea Gastrointestinal: Reports as per HPI Genitourinary: Reports as per HPI Musculoskeletal: Reports as per HPI Musculoskeletal: absent: ankle pain, ankle stiffness, ankle swelling, as per HPI, elbow pain, elbow stiffness, elbow swelling, foot pain, foot stiffness, foot swelling, hand pain, hand stiffness, hand swelling, hip pain, hip stiffness, hip swelling, knee pain, knee stiffness, knee swelling, shoulder pain, shoulder stiffness, shoulder swelling, wrist pain, wrist stiffness, wrist swelling Integumentary: Reports as per HPI Neurological: Reports as per HPI Psychiatric: Reports as per HPI Endocrine: Reports as per HPI Hematologic/Lymphatic: Reports as per HPI Allergic/Immunologic: Reports as per HPI Past Medical History Past Medical History: Coronary Artery Disease (CAD), Diabetes Mellitus, Hyperlipidemia, Hypertension, Myocardial Infarction ([place]), Renal Disease, Respiratory Disorder Additional Past Medical History / Comment(s): Stage IIIb/IV kidney disease, heart murmur. Pt had COVID 19 Moderna vaccine on 05/07/20 & 06/04/20. History of Any Multi-Drug Resistant Organisms: None Reported Additional Past Surgical History / Comment(s): skin CA removal, bilateral cataracts Past Anesthesia/Blood Transfusion Reactions: No Reported Reaction Past Psychological History: No Psychological Hx Reported Smoking Status: Never smoker Past Alcohol Use History: None Reported Past Drug Use History: None Reported - Past Family History Father Family Medical History: Myocardial Infarction ([place]) (Her father had a heart attack in his mid 40s and from a myocardial infarction at age 64) Additional Family Medical History / Comment(s): "heart issues" Mother Family Medical History: Diabetes Mellitus, Hypertension Medications and Allergies Home Medications Medication Instructions Recorded Confirmed Type Allopurinol [Zyloprim] 100 mg PO DAILY 07/10/20 07/10/20 History Aspirin EC [Ecotrin Low Dose] 81 mg PO DAILY 07/10/20 07/10/20 History Cholecalciferol [Vitamin D3 (25 25 mcg PO DAILY 07/10/20 07/10/20 History Mcg = 1000 Iu)] Glimepiride [Amaryl] 2 mg PO BID 07/10/20 07/10/20 History Losartan Potassium 50 mg PO DAILY 07/10/20 07/10/20 History Metoprolol Succinate (ER) [Toprol 50 mg PO DAILY 07/10/20 07/10/20 History Xl] Pioglitazone [Actos] 30 mg PO DAILY 07/10/20 07/10/20 History Simvastatin [Zocor] 40 mg PO HS 07/10/20 07/10/20 History Spironolactone 50 mg PO HS 07/10/20 07/10/20 History sitaGLIPtin [Januvia] 50 mg PO DAILY 07/10/20 07/10/20 History Allergies Allergy/AdvReac Type Severity Reaction Status Date / Time No Known Allergies Allergy Verified 07/10/20 08:46 Physical Exam Vitals: Vital Signs Temp Pulse Resp BP BP Pulse Ox 07/17/20 08:55 98.0 F 75 16 132/62 98 07/17/20 08:00 75 16 07/17/20 04:00 97.6 F 68 18 135/63 95 07/17/20 02:00 63 18 07/17/20 00:00 63 18 142/65 97 07/16/20 20:00 96.6 F L 67 18 125/59 96 07/16/20 16:32 98.0 F 70 16 131/62 97 07/16/20 16:00 69 131/62 07/16/20 14:00 67 16 07/16/20 11:39 97.9 F 67 16 147/67 97 Intake and Output 07/16/20 07/17/20 07/17/20 22:59 06:59 14:59 Intake Total 0 Output Total 700 400 800 Balance -700 -400 -800 Intake: Oral 0 Output: Urine 700 400 800 Other: Voiding Method Toilet Toilet Toilet # Voids 1 # Bowel Movements 0 Weight 87.5 kg CONSTITUTIONAL: Appears comfortable, cooperative, no acute distress RESPIRATORY: Lungs sounds diminished bilaterally. Respirations even, nonlabored. Currently on room air with oxygen saturation 95%. Able to achieve 1500 mL on incentive spirometry. Strong cough. CARDIOVASCULAR: S1, S2 present. Regular rate and rhythm, sinus rhythm on telemetry. Palpable peripheral pulses bilaterally. Bilateral lower extremity edema present. No calf pain or tenderness noted. GASTROINTESTINAL: Abdomen soft, nontender, nondistended. Active bowel sounds present 4 quadrants. Tolerating diet. GENITOURINARY: Continues to void INTEGUMENTARY: Skin is warm and dry with evidence of good perfusion. NEUROLOGIC: Cranial nerves II through XII intact MUSKULOSKELETAL: Able to move all extremities, strength equal bilaterally, gait normal PSYCHIATRIC: Alert and oriented to person place and time, appropriate affect, intact judgment and insight Results - Laboratory Findings CBC and BMP: 07/17/20 07:04 07/17/20 07:04 PT/INR, D-dimer PT 10.7 sec (9.0-12.0) 07/10/20 06:35 INR 1.0 (<1.2) 07/10/20 06:35 Abnormal lab findings: Abnormal Labs 07/10/20 07/10/20 07/10/20 06:35 06:35 06:35 WBC 11.0 H RBC 3.52 L Hgb 11.3 L Hct 33.3 L Neutrophils # 9.0 H Lymphocytes # APTT Sodium 135 L Chloride Carbon Dioxide 19 L BUN 37 H Creatinine 1.80 H Glucose 270 H POC Glucose (mg/dL) Hemoglobin A1c AST Troponin I 0.641 H* Total Protein HDL Cholesterol Procalcitonin Urine Protein Urine Ketones Urine Blood Urine Bilirubin Ur Leukocyte Esterase Urine RBC Urine WBC Urine Bacteria Urine Mucus 07/10/20 07/10/20 07/10/20 10:35 11:39 14:29 WBC RBC Hgb Hct Neutrophils # Lymphocytes # APTT Sodium Chloride Carbon Dioxide BUN Creatinine Glucose POC Glucose (mg/dL) 346 H Hemoglobin A1c AST Troponin I 1.310 H* 12.700 H* Total Protein HDL Cholesterol Procalcitonin Urine Protein Urine Ketones Urine Blood Urine Bilirubin Ur Leukocyte Esterase Urine RBC Urine WBC Urine Bacteria Urine Mucus 07/10/20 07/10/20 07/10/20 14:29 14:29 16:34 WBC RBC Hgb Hct Neutrophils # Lymphocytes # APTT 51.4 H Sodium Chloride Carbon Dioxide BUN Creatinine Glucose POC Glucose (mg/dL) 276 H Hemoglobin A1c AST Troponin I Total Protein HDL Cholesterol Procalcitonin 0.23 H Urine Protein Urine Ketones Urine Blood Urine Bilirubin Ur Leukocyte Esterase Urine RBC Urine WBC Urine Bacteria Urine Mucus 07/10/20 07/11/20 07/11/20 21:04 06:21 07:53 WBC RBC Hgb Hct Neutrophils # Lymphocytes # APTT Sodium Chloride Carbon Dioxide BUN Creatinine Glucose POC Glucose (mg/dL) 215 H 118 H Hemoglobin A1c AST Troponin I Total Protein HDL Cholesterol 67 H Procalcitonin Urine Protein Urine Ketones Urine Blood Urine Bilirubin Ur Leukocyte Esterase Urine RBC Urine WBC Urine Bacteria Urine Mucus 07/11/20 07/11/20 07/11/20 07:53 07:53 12:02 WBC RBC Hgb Hct Neutrophils # Lymphocytes # APTT 37.8 H Sodium 135 L Chloride 108 H Carbon Dioxide 17 L BUN 41 H Creatinine 1.99 H Glucose 118 H POC Glucose (mg/dL) 223 H Hemoglobin A1c AST Troponin I Total Protein HDL Cholesterol Procalcitonin Urine Protein Urine Ketones Urine Blood Urine Bilirubin Ur Leukocyte Esterase Urine RBC Urine WBC Urine Bacteria Urine Mucus 07/11/20 07/11/20 07/12/20 16:55 19:48 00:07 WBC RBC Hgb Hct Neutrophils # Lymphocytes # APTT 63.2 H Sodium Chloride Carbon Dioxide BUN Creatinine Glucose POC Glucose (mg/dL) 270 H 210 H Hemoglobin A1c AST Troponin I Total Protein HDL Cholesterol Procalcitonin Urine Protein Urine Ketones Urine Blood Urine Bilirubin Ur Leukocyte Esterase Urine RBC Urine WBC Urine Bacteria Urine Mucus 07/12/20 07/12/20 07/12/20 06:21 07:39 11:51 WBC RBC Hgb Hct Neutrophils # Lymphocytes # APTT Sodium Chloride Carbon Dioxide BUN 40 H Creatinine 2.09 H Glucose 147 H POC Glucose (mg/dL) 145 H 191 H Hemoglobin A1c AST Troponin I Total Protein HDL Cholesterol Procalcitonin Urine Protein Urine Ketones Urine Blood Urine Bilirubin Ur Leukocyte Esterase Urine RBC Urine WBC Urine Bacteria Urine Mucus 07/12/20 07/12/20 07/12/20 16:51 19:31 20:18 WBC RBC Hgb Hct Neutrophils # Lymphocytes # APTT Sodium Chloride Carbon Dioxide BUN Creatinine Glucose POC Glucose (mg/dL) 201 H 219 H Hemoglobin A1c AST Troponin I Total Protein HDL Cholesterol Procalcitonin Urine Protein 1+ H Urine Ketones Trace H Urine Blood Trace H Urine Bilirubin 1+ H Ur Leukocyte Esterase Large H Urine RBC 6 H Urine WBC 33 H Urine Bacteria Occasional H Urine Mucus Many H 07/13/20 07/13/20 07/13/20 05:49 06:57 06:57 WBC RBC 3.28 L Hgb 10.4 L Hct 31.0 L Neutrophils # Lymphocytes # APTT Sodium 136 L Chloride Carbon Dioxide 21 L BUN 39 H Creatinine 1.93 H Glucose 155 H POC Glucose (mg/dL) 155 H Hemoglobin A1c AST 62 H Troponin I Total Protein 6.2 L HDL Cholesterol 62 H Procalcitonin Urine Protein Urine Ketones Urine Blood Urine Bilirubin Ur Leukocyte Esterase Urine RBC Urine WBC Urine Bacteria Urine Mucus 07/13/20 07/13/20 07/13/20 11:30 16:44 20:17 WBC RBC Hgb Hct Neutrophils # Lymphocytes # APTT Sodium Chloride Carbon Dioxide BUN Creatinine Glucose POC Glucose (mg/dL) 208 H 183 H 181 H Hemoglobin A1c AST Troponin I Total Protein HDL Cholesterol Procalcitonin Urine Protein Urine Ketones Urine Blood Urine Bilirubin Ur Leukocyte Esterase Urine RBC Urine WBC Urine Bacteria Urine Mucus 07/14/20 07/14/20 07/14/20 06:07 06:35 06:35 WBC RBC Hgb Hct Neutrophils # Lymphocytes # APTT Sodium Chloride Carbon Dioxide BUN Creatinine Glucose POC Glucose (mg/dL) 141 H Hemoglobin A1c 8.7 H AST Troponin I 5.690 H* Total Protein HDL Cholesterol Procalcitonin Urine Protein Urine Ketones Urine Blood Urine Bilirubin Ur Leukocyte Esterase Urine RBC Urine WBC Urine Bacteria Urine Mucus 07/14/20 07/14/20 07/14/20 06:35 11:49 16:24 WBC RBC Hgb Hct Neutrophils # Lymphocytes # APTT Sodium 136 L Chloride Carbon Dioxide BUN 38 H Creatinine 1.89 H Glucose 134 H POC Glucose (mg/dL) 212 H 205 H Hemoglobin A1c AST Troponin I Total Protein HDL Cholesterol Procalcitonin Urine Protein Urine Ketones Urine Blood Urine Bilirubin Ur Leukocyte Esterase Urine RBC Urine WBC Urine Bacteria Urine Mucus 07/14/20 07/15/20 07/15/20 20:06 06:35 06:35 WBC RBC 3.09 L Hgb 9.8 L Hct 29.3 L Neutrophils # Lymphocytes # 0.8 L APTT Sodium 136 L Chloride Carbon Dioxide BUN 36 H Creatinine 1.87 H Glucose 100 H POC Glucose (mg/dL) 116 H Hemoglobin A1c AST Troponin I Total Protein HDL Cholesterol Procalcitonin Urine Protein Urine Ketones Urine Blood Urine Bilirubin Ur Leukocyte Esterase Urine RBC Urine WBC Urine Bacteria Urine Mucus 07/15/20 07/15/20 07/15/20 11:56 16:37 19:54 WBC RBC Hgb Hct Neutrophils # Lymphocytes # APTT Sodium Chloride Carbon Dioxide BUN Creatinine Glucose POC Glucose (mg/dL) 206 H 188 H 182 H Hemoglobin A1c AST Troponin I Total Protein HDL Cholesterol Procalcitonin Urine Protein Urine Ketones Urine Blood Urine Bilirubin Ur Leukocyte Esterase Urine RBC Urine WBC Urine Bacteria Urine Mucus 07/16/20 07/16/20 07/16/20 11:35 16:46 20:39 WBC RBC Hgb Hct Neutrophils # Lymphocytes # APTT Sodium Chloride Carbon Dioxide BUN Creatinine Glucose POC Glucose (mg/dL) 126 H 235 H 185 H Hemoglobin A1c AST Troponin I Total Protein HDL Cholesterol Procalcitonin Urine Protein Urine Ketones Urine Blood Urine Bilirubin Ur Leukocyte Esterase Urine RBC Urine WBC Urine Bacteria Urine Mucus 07/17/20 07/17/20 07/17/20 06:13 07:04 07:04 WBC RBC 3.31 L Hgb 10.5 L Hct 31.1 L Neutrophils # Lymphocytes # APTT Sodium Chloride Carbon Dioxide 32 H BUN 34 H Creatinine 1.78 H Glucose 126 H POC Glucose (mg/dL) 122 H Hemoglobin A1c AST Troponin I Total Protein HDL Cholesterol Procalcitonin Urine Protein Urine Ketones Urine Blood Urine Bilirubin Ur Leukocyte Esterase Urine RBC Urine WBC Urine Bacteria Urine Mucus - Diagnostic Findings Chest x-ray: image reviewed Assessment and Plan Plan: 1 symptomatic multivessel coronary artery disease, triple-vessel involvement and the patient is postop STEMI. Patient has also mitral regurgitation the patient was in acute CHF at the time of admission. Currently she is being considered for coronary artery bypass surgery and mitral valve repair. 2 CHF with an ejection fraction of 30-35% 3 moderate to severe mitral regurgitation 4 lower extremity edema 5 chronic stage IIIB/for kidney disease 5 diabetes mellitus type 2 6 hypertension 7 hyperlipidemia 8 lifetime nonsmoker Plan The patient was evaluated. I noted that at the time of her initial evaluation with a chest x-ray and spirometry was done, the patient was and pulmonary edema and CHF. As such, the chest x-rays of normal and shows about the pleural effusions and interstitial edema. As for spirometry, it is showing a restrictive lung physiology related to pulmonary edema. The FEV1 was 41% of predicted and the ratio FEV1 over FVC was 86. As such, this is typical of restriction which is probably related to her CHF and decision edema. My recommendations are to proceed with surgery. I think she will do fine follow pulmonary standpoint. She does not have any chronic lung disease. No history of asthma or emphysema. Currently is on room air oxygen with a pulse of 98%. She is being diuresed IV Lasix and I do anticipate improvement of the chest x- ray findings and in the spirometry. We'll continue to follow and will be involved in the postoperative care including managing the mechanical ventilator and attempt for any pulmonary needs. His using the incentive spirometer. We'll continue to follow
[2020-07-17 12:00] LABS: Glucose,Whole Blood 212 mg/dL (75-99)
--- NOTE | 2020-07-17 13:35 | PN ---
PROGRESS NOTE The patient is seen for followup for chronic kidney disease. She was admitted with acute non ST elevation myocardial infarction and congestive heart failure and has been evaluated by cardiothoracic surgery with plans for possible surgery early next week. PHYSICAL EXAMINATION: On examination today, blood pressure is 135/63, heart rate 68 per minute. She is afebrile. EXAMINATION OF THE HEART: S1, S2. EXAMINATION OF THE LUNGS: Bilateral breath sounds are heard. Abdomen is soft, nontender. Examination of lower extremities, improving edema. She still has about 1+ edema bilaterally. [employer]IST exam grossly intact. LABS: Labs show sodium 138, potassium 3.8, chloride 100, CO2 is 32, BUN 34, creatinine 1.78. ASSESSMENT: 1. Chronic kidney disease NKF stage 4 currently stable, etiology nephrosclerosis and diabetic kidney disease. Renal function at baseline. 2. Congestive heart failure acute on top of chronic, mostly systolic, currently being diuresed. 3. Cardiomyopathy, ejection fraction 30% to 35%. 4. Metabolic acidosis, maintained on oral sodium bicarb. 5. Volume overload, restarted on diuretics. We will continue to diurese patient. PLAN: Continue with Lasix 40 mg IV daily and repeat labs in a.m. I will discontinue the sodium bicarb as well. MMODL / IJN: [id number] /
--- NOTE | 2020-07-17 14:25 | XR ---
EXAMINATION TYPE: XR chest 1V portable DATE OF EXAM: 07/17/2020 COMPARISON: 07/10/2020 HISTORY: Short of breath TECHNIQUE: FINDINGS: Heart is borderline enlarged. There is some blunting of the costophrenic angles. There is m ild congestion. There are chest leads. IMPRESSION: There is congestive heart failure on previous exam that is mostly cleared on today's exam . There is some persistent minimal infiltrate and atelectasis and pleural reaction at the left lung b ase.
[2020-07-17 17:03] LABS: Glucose,Whole Blood 252 mg/dL (75-99)
[2020-07-17 19:58] LABS: Glucose,Whole Blood 227 mg/dL (75-99)
[2020-07-17] MEDS: ATORVASTATIN 80 MG TAB PO SCH (20:38)
--- NOTE | 2020-07-18 00:25 | P.PN ---
Subjective Progress Note Date: 07/14/20 This is a pleasant 70 years old female with past medical history of diabetes mellitus, hypertension, hyperlipidemia, stage IV chronic kidney disease. He is a patient of Dr. Barnett presents because OF chest pain and progressive dyspnea over few days. Her chest pain started last Monday for 3-4 days ago, it improved gradually but got worse yesterday. Pain was coming and going. Last night it did not go away so decided to come to the hospital. Was about 5/70 severity on the left side, none dictated. Associated with orthopnea and paroxysmal nocturnal dyspnea. She has to sit up to avoid shortness of breath. She has some little cough and phlegm. Pathak catheter was placed in the emergency room. No GI or urinary symptoms initially patient admitted with oxygen supplemented via BiPAP machine including this morning, currently her breathing is improving and she is only on 4 L oxygen and is She denies smoking, alcohol or illicit drugs. Currently she is saturating 96% on 4 L nasal cannula, patient is afebrile. Lap showing WBC of 11.0 K, hemoglobin 11.3, INR is 1.0, sodium 135, creatinine is 1.8. Baseline 1.8-2.2. INR is normal 1.0, trace of BMP and liver enzymes are unremarkable. Troponin is elevated at 0.6 [place] 1[place] [address]. Physical exam, no espinal virus are not detected. Echocardiogram: October ejection fraction 30-35%, several wall motion abnormality chest x-ray: Bilateral lung capacity, edema or infection In the emergency room patient was started on aspirin, heparin drip, lorazepam, furosemide 40 mg IV once. 07/11/2020 Patient with minimal symptoms today however lying in bed most of the time. She has chest pain on and off Hemodynamically stable Creatinine stable at 1.9, nephrology on the case as patient is going for cardiac cath, adequate sodium bicarb today. 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 Nothing by mouth after midnight In the meantime patient remains on heparin drip, IV Lasix. Also she is on aspirin. 07/12/20 Patient remains with minimal symptoms while she is at rest. Chest pain on and off. Hemodynamically stable. And her creatinine only slightly up over the last 2 days 1.8, 1.9 and 2.0 today, auto vinyl top installer stopped her IV Lasix and Cozaar as well. Patient underwent cardiac cath today and found to have severe triple vessel coronary artery disease, cardiothoracic surgery team is Consulted. Patient heparin drip was stopped and started on nitroglycerin drip. Lasix, Cozaar and D5W were stopped and patient was started on normal saline at 75 mL/h. May consider to stop normal saline tomorrow 07/13/2020 This is a [id number] years old female presents because of non-STEMI and ischemic cardiomyopathy with ejection fraction 30-35%. Underwent cardiac cath showing severe triple vessel coronary artery disease and isn't currently been evaluated by cardiothoracic surgery for bypass procedure. Also echocardiogram showing moderate mitral regurgitation and moderate pulmonary hypertension Also patient is followed closely by nephrology to follow her chronic kidney disease stage 3-4, currently her creatinine stable at 1.9, Cozaar was held. Hepatitis panel negative. Patient was sitting of double chair with no chest pain and no other symptoms. And she is hemodynamically stable 07/14/2020 Patient is currently sitting in chair comfortably. No complaints of chest pain shortness of breath. No headache or dizziness or lightheadedness. No fever no chills. No nausea vomiting or abdominal pain or diarrhea. Tolerating oral diet. Patient is being continued on aspirin statins and Imdur and metoprolol. 2D echocardiogram flexion fraction 30 to 35% with severe hypokinesis of the anterior apical, anteroseptal wall. Losartan is on hold due to elevated creatinine level. Cardiology and CT surgery is on board. Evaluating for revascularization surgery. Laboratory data showed sodium 136 potassium 4.1 BUN 38 and creatinine 1.89 Current medications reviewed. Objective - Vital Signs Vital signs: Vital Signs Temp 97.7 F 07/14/20 08:00 Pulse 74 07/14/20 12:00 Resp 18 07/14/20 12:00 BP 148/73 07/14/20 12:00 Pulse Ox 98 07/14/20 12:00 Intake & Output 07/13/20 07/14/20 07/14/20 18:59 06:59 18:59 Intake Total 240 240 540 Output Total 125 400 Balance 115 -160 540 Weight 90.4 kg Intake: Oral 240 240 540 Output: Urine 125 400 Other: Voiding Method Indwelling Catheter Toilet Toilet # Voids 1 - Exam GENERAL: The patient is alert and oriented x3, not in any acute distress. Well developed, well nourished. HEENT: Pupils are round and equally reacting to light. EOMI. No scleral icterus. No conjunctival pallor. Normocephalic, atraumatic. No pharyngeal erythema. No thyromegaly. CARDIOVASCULAR: S1 and S2 present. No murmurs, rubs, or gallops. PULMONARY: Chest is clear to auscultation, no wheezing or crackles. ABDOMEN: Soft, nontender, nondistended, normoactive bowel sounds. No palpable organomegaly. MUSCULOSKELETAL: No joint swelling or deformity. EXTREMITIES: No cyanosis, clubbing, or pedal edema. NEUROLOGICAL: Gross neurological examination did not reveal any focal deficits. SKIN: No rashes. no petechiae. - Labs CBC & Chem 7: 07/17/20 07:04 07/17/20 07:04 Labs: Abnormal Lab Results - Last 24 Hours (Table) 07/13/20 07/13/20 07/14/20 Range/Units 16:44 20:17 06:07 Sodium (137-145) mmol/L BUN (7-17) mg/dL Creatinine (0.52-1.04) mg/dL Glucose (74-99) mg/dL POC Glucose (mg/dL) 183 H 181 H 141 H (75-99) mg/dL Hemoglobin A1c (4.0-6.0) % Troponin I (0.000-0.034) ng/mL 07/14/20 07/14/20 07/14/20 Range/Units 06:35 06:35 06:35 Sodium 136 L (137-145) mmol/L BUN 38 H (7-17) mg/dL Creatinine 1.89 H (0.52-1.04) mg/dL Glucose 134 H (74-99) mg/dL POC Glucose (mg/dL) (75-99) mg/dL Hemoglobin A1c 8.7 H (4.0-6.0) % Troponin I 5.690 H* (0.000-0.034) ng/mL 07/14/20 Range/Units 11:49 Sodium (137-145) mmol/L BUN (7-17) mg/dL Creatinine (0.52-1.04) mg/dL Glucose (74-99) mg/dL POC Glucose (mg/dL) 212 H (75-99) mg/dL Hemoglobin A1c (4.0-6.0) % Troponin I (0.000-0.034) ng/mL Microbiology - Last 24 Hours (Table) 07/12/20 19:31 Urine Culture - Final Urine,Clean Catch 07/12/20 21:40 Nasal Screen MRSA/MSSA - Final Nasal Swab Assessment and Plan Assessment: Multivessel coronary artery disease acute systolicCHF exacerbation, ejection fraction 30-35% and moderate MR Acute hypoxic respiratory failure secondary to both non-stemi with chest pain and elevated troponin. Diabetes mellitus Hypertension Hyperlipidemia stage IV chronic kidney disease Ongoing nicotine addiction DVT prophylaxis Plan: this is a pleasant 70 years old female who presents with CHF and non- STEMI.Patient is status post cardiac catheterization multivessel coronary dis ease.Patient is being continued on lasix IV , aspirin, statins, Imdur and metoprolol. Losartan is on hold due to cKD CT surgery and cardiology is on board. Evaluating for cardiac revascularization surgery. Nephrology is following due to chronic kidney disease. Labs and medication were reviewed. Monitor lytes and vitals. DVT and GI prophylaxis. Further recommendations as per clinical course of the patient DVT prophylaxis : Heparin GI Prophylaxis: Pepcid PT/OT: Pending Prognosis is guarded Time with Patient: Greater than 30
--- NOTE | 2020-07-18 00:28 | P.PN ---
Subjective Progress Note Date: 07/15/20 Principal diagnosis: Acute non-ST elevated CT Multivessel coronary artery disease This is a pleasant 70 years old female with past medical history of diabetes mellitus, hypertension, hyperlipidemia, stage IV chronic kidney disease. He is a patient of Dr. Barnett presents because OF chest pain and progressive dyspnea over few days. Her chest pain started last Monday for 3-4 days ago, it improved gradually but got worse yesterday. Pain was coming and going. Last night it did not go away so decided to come to the hospital. Was about 5/70 severity on the left side, none dictated. Associated with orthopnea and paroxysmal nocturnal dyspnea. She has to sit up to avoid shortness of breath. She has some little cough and phlegm. Pathak catheter was placed in the emergency room. No GI or urinary symptoms initially patient admitted with oxygen supplemented via BiPAP machine including this morning, currently her breathing is improving and she is only on 4 L oxygen and is She denies smoking, alcohol or illicit drugs. Currently she is saturating 96% on 4 L nasal cannula, patient is afebrile. Lap showing WBC of 11.0 K, hemoglobin 11.3, INR is 1.0, sodium 135, creatinine is 1.8. Baseline 1.8-2.2. INR is normal 1.0, trace of BMP and liver enzymes are unremarkable. Troponin is elevated at 0.6 [place] 1[place] [address]. Physical exam, no espinal virus are not detected. Echocardiogram: October ejection fraction 30-35%, several wall motion abnormality chest x-ray: Bilateral lung capacity, edema or infection In the emergency room patient was started on aspirin, heparin drip, lorazepam, furosemide 40 mg IV once. 07/11/2020 Patient with minimal symptoms today however lying in bed most of the time. She has chest pain on and off Hemodynamically stable Creatinine stable at 1.9, nephrology on the case as patient is going for cardiac cath, adequate sodium bicarb today. 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 Nothing by mouth after midnight In the meantime patient remains on heparin drip, IV Lasix. Also she is on aspirin. 07/12/20 Patient remains with minimal symptoms while she is at rest. Chest pain on and off. Hemodynamically stable. And her creatinine only slightly up over the last 2 days 1.8, 1.9 and 2.0 today, gold prospector stopped her IV Lasix and Cozaar as well. Patient underwent cardiac cath today and found to have severe triple vessel coronary artery disease, cardiothoracic surgery team is Consulted. Patient heparin drip was stopped and started on nitroglycerin drip. Lasix, Cozaar and D5W were stopped and patient was started on normal saline at 75 mL/h. May consider to stop normal saline tomorrow 07/13/2020 This is [age] years old female presents because of non-STEMI and ischemic cardiomyopathy with ejection fraction 30-35%. Underwent cardiac cath showing severe triple vessel coronary artery disease and isn't currently been evaluated by cardiothoracic surgery for bypass procedure. Also echocardiogram showing moderate mitral regurgitation and moderate pulmonary hypertension Also patient is followed closely by nephrology to follow her chronic kidney disease stage 3-4, currently her creatinine stable at 1.9, Cozaar was held. Hepatitis panel negative. Patient was sitting of double chair with no chest pain and no other symptoms. And she is hemodynamically stable 07/14/2020 Patient is currently sitting in chair comfortably. No complaints of chest pain shortness of breath. No headache or dizziness or lightheadedness. No fever no chills. No nausea vomiting or abdominal pain or diarrhea. Tolerating oral diet. Patient is being continued on aspirin statins and Imdur and metoprolol. 2D echocardiogram flexion fraction 30 to 35% with severe hypokinesis of the anterior apical, anteroseptal wall. Losartan is on hold due to elevated creatinine level. Cardiology and CT surgery is on board. Evaluating for revascularization surgery. Laboratory data showed sodium 136 potassium 4.1 BUN 38 and creatinine 1.89 07/15/2020 Patient is currently resting in the chair comfortably. No complaints of chest pain or shortness of breath. EKG showed sinus rhythm with persistent anterior notions in the precordial leads. Laboratory data showed WBC 6.6 hemoglobin 9.8 platelets 180, sodium 136 potassium 4.1 BUN 36 and creatinine 1.87 and magnesium 1.8 Lower extremity arterial duplex. The left side is normal. Possibly mild infra popliteal disease on the right. Perfusion pressures appear adequate. Vein mapping was done today. Denied any nausea vomiting abdominal pain or diarrhea. Current medications reviewed. Objective - Vital Signs Vital signs: Vital Signs Temp 97.8 F 07/15/20 19:51 Pulse 65 07/15/20 20:00 Resp 17 07/15/20 20:00 BP 131/60 07/15/20 19:51 Pulse Ox 96 07/15/20 20:23 Intake & Output 07/15/20 07/15/20 07/16/20 06:59 18:59 06:59 Intake Total 480 Output Total 500 850 Balance -500 -370 Weight 90.8 kg Intake: Oral 480 Output: Urine 500 850 Other: Voiding Method Toilet Toilet # Voids 3 - Exam GENERAL: The patient is alert and oriented x3, not in any acute distress. Well developed, well nourished. HEENT: Pupils are round and equally reacting to light. EOMI. No scleral icterus. No conjunctival pallor. Normocephalic, atraumatic. No pharyngeal erythema. No thyromegaly. CARDIOVASCULAR: S1 and S2 present. No murmurs, rubs, or gallops. PULMONARY: Chest is clear to auscultation, no wheezing or crackles. ABDOMEN: Soft, nontender, nondistended, normoactive bowel sounds. No palpable organomegaly. MUSCULOSKELETAL: No joint swelling or deformity. EXTREMITIES: No cyanosis, clubbing, or pedal edema. NEUROLOGICAL: Gross neurological examination did not reveal any focal deficits. SKIN: No rashes. no petechiae. - Labs CBC & Chem 7: 07/17/20 07:04 07/17/20 07:04 Labs: Abnormal Lab Results - Last 24 Hours (Table) 07/15/20 07/15/20 07/15/20 Range/Units 06:35 06:35 11:56 RBC 3.09 L (3.80-5.40) m/uL Hgb 9.8 L (11.4-16.0) gm/dL Hct 29.3 L (34.0-46.0) % Lymphocytes # 0.8 L (1.0-4.8) k/uL Sodium 136 L (137-145) mmol/L BUN 36 H (7-17) mg/dL Creatinine 1.87 H (0.52-1.04) mg/dL Glucose 100 H (74-99) mg/dL POC Glucose (mg/dL) 206 H (75-99) mg/dL 07/15/20 07/15/20 Range/Units 16:37 19:54 RBC (3.80-5.40) m/uL Hgb (11.4-16.0) gm/dL Hct (34.0-46.0) % Lymphocytes # (1.0-4.8) k/uL Sodium (137-145) mmol/L BUN (7-17) mg/dL Creatinine (0.52-1.04) mg/dL Glucose (74-99) mg/dL POC Glucose (mg/dL) 188 H 182 H (75-99) mg/dL Assessment and Plan Assessment: Multivessel coronary artery disease acute systolicCHF exacerbation, ejection fraction 30-35% and moderate MR Acute hypoxic respiratory failure secondary to both non-stemi with chest pain and elevated troponin. Diabetes mellitus Hypertension Hyperlipidemia stage IV chronic kidney disease Ongoing nicotine addiction DVT prophylaxis Plan: this is a pleasant 70 years old female who presents with CHF and non- STEMI.Patient is status post cardiac catheterization multivessel coronary disease.Patient is being continued on lasix IV , aspirin, statins, Imdur and metoprolol. Losartan is on hold due to cKD CT surgery and cardiology is on board. Evaluating for cardiac revascularization surgery. Nephrology is following due to chronic kidney disease. Labs and medication were reviewed. Monitor lytes and vitals. DVT and GI prophylaxis. Further recommendations as per clinical course of the patient DVT prophylaxis : Heparin GI Prophylaxis: Pepcid PT/OT: Pending Prognosis is guarded Time with Patient: Greater than 30
--- NOTE | 2020-07-18 00:31 | P.PN ---
Subjective Progress Note Date: 07/16/20 Principal diagnosis: Acute non-ST elevated [place] Multivessel coronary artery disease This is a pleasant 70 years old female with past medical history of diabetes mellitus, hypertension, hyperlipidemia, stage IV chronic kidney disease. He is a patient of Dr. Barnett presents because OF chest pain and progressive dyspnea over few days. Her chest pain started last Monday for 3-4 days ago, it improved gradually but got worse yesterday. Pain was coming and going. Last night it did not go away so decided to come to the hospital. Was about 5/70 severity on the left side, none dictated. Associated with orthopnea and paroxysmal nocturnal dyspnea. She has to sit up to avoid shortness of breath. She has some little cough and phlegm. Pathak catheter was placed in the emergency room. No GI or urinary symptoms initially patient admitted with oxygen supplemented via BiPAP machine including this morning, currently her breathing is improving and she is only on 4 L oxygen and is She denies smoking, alcohol or illicit drugs. Currently she is saturating 96% on 4 L nasal cannula, patient is afebrile. Lap showing WBC of 11.0 K, hemoglobin 11.3, INR is 1.0, sodium 135, creatinine is 1.8. Baseline 1.8-2.2. INR is normal 1.0, trace of BMP and liver enzymes are unremarkable. Troponin is elevated at 0.6 [place] 1[place] [address]. Physical exam, no espinal virus are not detected. Echocardiogram: October ejection fraction 30-35%, several wall motion abnormality chest x-ray: Bilateral lung capacity, edema or infection In the emergency room patient was started on aspirin, heparin drip, lorazepam, furosemide 40 mg IV once. 07/11/2020 Patient with minimal symptoms today however lying in bed most of the time. She has chest pain on and off Hemodynamically stable Creatinine stable at 1.9, nephrology on the case as patient is going for cardiac cath, adequate sodium bicarb today. 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 Nothing by mouth after midnight In the meantime patient remains on heparin drip, IV Lasix. Also she is on aspirin. 07/12/20 Patient remains with minimal symptoms while she is at rest. Chest pain on and off. Hemodynamically stable. And her creatinine only slightly up over the last 2 days 1.8, 1.9 and 2.0 today, pipeline dispatch operator stopped her IV Lasix and Cozaar as well. Patient underwent cardiac cath today and found to have severe triple vessel coronary artery disease, cardiothoracic surgery team is Consulted. Patient heparin drip was stopped and started on nitroglycerin drip. Lasix, Cozaar and D5W were stopped and patient was started on normal saline at 75 mL/h. May consider to stop normal saline tomorrow 07/13/2020 This is a [id number] years old female presents because of non-STEMI and ischemic cardiomyopathy with ejection fraction 30-35%. Underwent cardiac cath showing severe triple vessel coronary artery disease and isn't currently been evaluated by cardiothoracic surgery for bypass procedure. Also echocardiogram showing moderate mitral regurgitation and moderate pulmonary hypertension Also patient is followed closely by nephrology to follow her chronic kidney disease stage 3-4, currently her creatinine stable at 1.9, Cozaar was held. Hepatitis panel negative. Patient was sitting of double chair with no chest pain and no other symptoms. And she is hemodynamically stable 07/14/2020 Patient is currently sitting in chair comfortably. No complaints of chest pain shortness of breath. No headache or dizziness or lightheadedness. No fever no chills. No nausea vomiting or abdominal pain or diarrhea. Tolerating oral diet. Patient is being continued on aspirin statins and Imdur and metoprolol. 2D echocardiogram flexion fraction 30 to 35% with severe hypokinesis of the anterior apical, anteroseptal wall. Losartan is on hold due to elevated creatinine level. Cardiology and CT surgery is on board. Evaluating for revascularization surgery. Laboratory data showed sodium 136 potassium 4.1 BUN 38 and creatinine 1.89 07/15/2020 Patient is currently resting in the chair comfortably. No complaints of chest pain or shortness of breath. EKG showed sinus rhythm with persistent anterior notions in the precordial leads. Laboratory data showed WBC 6.6 hemoglobin 9.8 platelets 180, sodium 136 potassium 4.1 BUN 36 and creatinine 1.87 and magnesium 1.8 Lower extremity arterial duplex. The left side is normal. Possibly mild infra popliteal disease on the right. Perfusion pressures appear adequate. Vein mapping was done today. Denied any nausea vomiting abdominal pain or diarrhea. 07/16/2020 Patient is currently sitting in a chair. No complaints of chest pain or shortness of breath. Titrate down oxygen to room air now. patient had SLOANE done today. Facial CT showed paranasal sinuses are grossly clear. Multiple cavitary petra lings in the bilateral premolar and molar teeth causing streak artifact limiting evaluation at these levels. Patient has been afebrile. No nausea vomiting or abdominal pain or diarrhea. Follow-up CBC and BMP tomorrow. Cardiology, CT surgery is on board. Current medications reviewed. Objective - Vital Signs Vital signs: Vital Signs Temp 98.0 F 07/16/20 16:32 Pulse 70 07/16/20 16:32 Resp 16 07/16/20 16:32 BP 131/62 07/16/20 16:32 Pulse Ox 97 07/16/20 16:32 Intake & Output 07/16/20 07/16/20 07/17/20 06:59 18:59 06:59 Intake Total 290 Balance 290 Weight 89.4 kg 89.4 kg Intake: IV 50 Oral 240 Other: Voiding Method Toilet Toilet # Voids 1 1 - Exam GENERAL: The patient is alert and oriented x3, not in any acute distress. Well developed, well nourished. HEENT: Pupils are round and equally reacting to light. EOMI. No scleral icterus. No conjunctival pallor. Normocephalic, atraumatic. No pharyngeal erythema. No thyromegaly. CARDIOVASCULAR: S1 and S2 present. No murmurs, rubs, or gallops. PULMONARY: Chest is clear to auscultation, no wheezing or crackles. ABDOMEN: Soft, nontender, nondistended, normoactive bowel sounds. No palpable organomegaly. MUSCULOSKELETAL: No joint swelling or deformity. EXTREMITIES: No cyanosis, clubbing, or pedal edema. NEUROLOGICAL: Gross neurological examination did not reveal any focal deficits. SKIN: No rashes. no petechiae. - Labs CBC & Chem 7: 07/17/20 07:04 07/17/20 07:04 Labs: Abnormal Lab Results - Last 24 Hours (Table) 07/16/20 07/16/20 07/16/20 Range/Units 11:35 16:46 20:39 POC Glucose (mg/dL) 126 H 235 H 185 H (75-99) mg/dL Assessment and Plan Assessment: Multivessel coronary artery disease acute systolicCHF exacerbation, ejection fraction 30-35% and moderate MR Acute hypoxic respiratory failure secondary to both non-stemi with chest pain and elevated troponin. Diabetes mellitus Hypertension Hyperlipidemia stage IV chronic kidney disease Ongoing nicotine addiction DVT prophylaxis Plan: this is a pleasant 70 years old female who presents with CHF and non- STEMI.Patient is status post cardiac catheterization multivessel coronary disease.Patient is being continued on lasix IV , aspirin, statins, Imdur and metoprolol. Losartan is on hold due to cKD CT surgery and cardiology is on board. Evaluating for cardiac revascularization surgery. Nephrology is following due to chronic kidney disease. Labs and medication were reviewed. Monitor lytes and vitals. DVT and GI prophylaxis. Further recommendations as per clinical course of the patient DVT prophylaxis : Heparin GI Prophylaxis: Pepcid PT/OT: Pending Prognosis is guarded Time with Patient: Greater than 30
--- NOTE | 2020-07-18 00:38 | P.PN ---
Subjective Progress Note Date: 07/17/20 Principal diagnosis: Acute non-ST elevated [place] Multivessel coronary artery disease This is a pleasant 70 years old female with past medical history of diabetes mellitus, hypertension, hyperlipidemia, stage IV chronic kidney disease. He is a patient of Dr. Barnett presents because OF chest pain and progressive dyspnea over few days. Her chest pain started last Monday for 3-4 days ago, it improved gradually but got worse yesterday. Pain was coming and going. Last night it did not go away so decided to come to the hospital. Was about 5/70 severity on the left side, none dictated. Associated with orthopnea and paroxysmal nocturnal dyspnea. She has to sit up to avoid shortness of breath. She has some little cough and phlegm. Pathak catheter was placed in the emergency room. No GI or urinary symptoms initially patient admitted with oxygen supplemented via BiPAP machine including this morning, currently her breathing is improving and she is only on 4 L oxygen and is She denies smoking, alcohol or illicit drugs. Currently she is saturating 96% on 4 L nasal cannula, patient is afebrile. Lap showing WBC of 11.0 K, hemoglobin 11.3, INR is 1.0, sodium 135, creatinine is 1.8. Baseline 1.8-2.2. INR is normal 1.0, trace of BMP and liver enzymes are unremarkable. Troponin is elevated at 0.6 [place] 1[place] [address]. Physical exam, no espinal virus are not detected. Echocardiogram: October ejection fraction 30-35%, several wall motion abnormality chest x-ray: Bilateral lung capacity, edema or infection In the emergency room patient was started on aspirin, heparin drip, lorazepam, furosemide 40 mg IV once. 07/11/2020 Patient with minimal symptoms today however lying in bed most of the time. She has chest pain on and off Hemodynamically stable Creatinine stable at 1.9, nephrology on the case as patient is going for cardiac cath, adequate sodium bicarb today. 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 Nothing by mouth after midnight In the meantime patient remains on heparin drip, IV Lasix. Also she is on aspirin. 07/12/20 Patient remains with minimal symptoms while she is at rest. Chest pain on and off. Hemodynamically stable. And her creatinine only slightly up over the last 2 days 1.8, 1.9 and 2.0 today, inspector brake lining stopped her IV Lasix and Cozaar as well. Patient underwent cardiac cath today and found to have severe triple vessel coronary artery disease, cardiothoracic surgery team is Consulted. Patient heparin drip was stopped and started on nitroglycerin drip. Lasix, Cozaar and D5W were stopped and patient was started on normal saline at 75 mL/h. May consider to stop normal saline tomorrow 07/13/2020 This is a years old female presents because of non-STEMI and ischemic cardiomyopathy with ejection fraction 30-35%. Underwent cardiac cath showing severe triple vessel coronary artery disease and isn't currently been evaluated by cardiothoracic surgery for bypass procedure. Also echocardiogram showing moderate mitral regurgitation and moderate pulmonary hypertension Also patient is followed closely by nephrology to follow her chronic kidney disease stage 3-4, currently her creatinine stable at 1.9, Cozaar was held. Hepatitis panel negative. Patient was sitting of double chair with no chest pain and no other symptoms. And she is hemodynamically stable 07/14/2020 Patient is currently sitting in chair comfortably. No complaints of chest pain shortness of breath. No headache or dizziness or lightheadedness. No fever no chills. No nausea vomiting or abdominal pain or diarrhea. Tolerating oral diet. Patient is being continued on aspirin statins and Imdur and metoprolol. 2D echocardiogram flexion fraction 30 to 35% with severe hypokinesis of the anterior apical, anteroseptal wall. Losartan is on hold due to elevated creatinine level. Cardiology and CT surgery is on board. Evaluating for revascularization surgery. Laboratory data showed sodium 136 potassium 4.1 BUN 38 and creatinine 1.89 07/15/2020 Patient is currently resting in the chair comfortably. No complaints of chest pain or shortness of breath. EKG showed sinus rhythm with persistent anterior notions in the precordial leads. Laboratory data showed WBC 6.6 hemoglobin 9.8 platelets 180, sodium 136 potassium 4.1 BUN 36 and creatinine 1.87 and magnesium 1.8 Lower extremity arterial duplex. The left side is normal. Possibly mild infra popliteal disease on the right. Perfusion pressures appear adequate. Vein mapping was done today. Denied any nausea vomiting abdominal pain or diarrhea. 07/16/2020 Patient is currently sitting in a chair. No complaints of chest pain or shortness of breath. Titrate down oxygen to room air now. patient had SLAONE done today. Facial CT showed paranasal sinuses are grossly clear. Multiple cavitary petra lings in the bilateral premolar and molar teeth causing streak artifact limiting evaluation at these levels. Patient has been afebrile. No nausea vomiting or abdominal pain or diarrhea. Follow-up CBC and BMP tomorrow. Cardiology, CT surgery is on board. 07/17/2020 Patient is currently sitting in a chair comfortably no complaints of chest pain or shortness breath. 97% on room air. CT face showed multiple cavitary fillings in the bilateral premolar, molar teeth causing streak artifact limiting evaluation. Patient is scheduled for dental evaluation today. No fever no chills. No cough or sputum production. Patient is being treated insulin sliding scale. Also Actos and linagliptin and Amaryl. Lab data showed WBC 6.1 hemoglobin 10.5 and platelets 237, sodium 138 potassium 3.8 bicarb is 32 BUN 34 and creatinine 1.78, calcium 9.0 Current medications reviewed. Objective - Vital Signs Vital signs: Vital Signs Temp 98.0 F 07/17/20 20:00 Pulse 66 07/17/20 20:00 Resp 16 07/17/20 20:00 BP 140/60 07/17/20 20:00 Pulse Ox 97 07/17/20 20:00 Intake & Output 07/17/20 07/17/20 07/18/20 06:59 18:59 06:59 Intake Total 240 Output Total 1100 1550 Balance -1100 -1310 Weight 87.5 kg Intake: Oral 240 Output: Urine 1100 1550 Other: Voiding Method Toilet Toilet Toilet # Voids 1 # Bowel Movements 0 - Exam GENERAL: The patient is alert and oriented x3, not in any acute distress. Well developed, well nourished. HEENT: Pupils are round and equally reacting to light. EOMI. No scleral icterus. No conjunctival pallor. Normocephalic, atraumatic. No pharyngeal erythema. No thyromegaly. CARDIOVASCULAR: S1 and S2 present. No murmurs, rubs, or gallops. PULMONARY: Chest is clear to auscultation, no wheezing or crackles. ABDOMEN: Soft, nontender, nondistended, normoactive bowel sounds. No palpable organomegaly. MUSCULOSKELETAL: No joint swelling or deformity. EXTREMITIES: No cyanosis, clubbing, or pedal edema. NEUROLOGICAL: Gross neurological examination did not reveal any focal deficits. SKIN: No rashes. no petechiae. - Labs CBC & Chem 7: 07/17/20 07:04 07/17/20 07:04 Labs: Abnormal Lab Results - Last 24 Hours (Table) 07/17/20 07/17/20 07/17/20 Range/Units 06:13 07:04 07:04 RBC 3.31 L (3.80-5.40) m/uL Hgb 10.5 L (11.4-16.0) gm/dL Hct 31.1 L (34.0-46.0) % Carbon Dioxide 32 H (22-30) mmol/L BUN 34 H (7-17) mg/dL Creatinine 1.78 H (0.52-1.04) mg/dL Glucose 126 H (74-99) mg/dL POC Glucose (mg/dL) 122 H (75-99) mg/dL 07/17/20 07/17/20 07/17/20 Range/Units 11:56 17:01 19:57 RBC (3.80-5.40) m/uL Hgb (11.4-16.0) gm/dL Hct (34.0-46.0) % Carbon Dioxide (22-30) mmol/L BUN (7-17) mg/dL Creatinine (0.52-1.04) mg/dL Glucose (74-99) mg/dL POC Glucose (mg/dL) 212 H 252 H 227 H (75-99) mg/dL Assessment and Plan Assessment: Multivessel coronary artery disease acute systolicCHF exacerbation, ejection fraction 30-35% and moderate MR Acute hypoxic respiratory failure secondary to both non-stemi with chest pain and elevated troponin. Diabetes mellitus 2 Hypertension Hyperlipidemia stage IV chronic kidney disease Ongoing nicotine addiction DVT prophylaxis Plan: this is a pleasant 70 years old female who presents with CHF and non-STEMI. Patient is status post cardiac catheterization multivessel coronary disease.Patient is being continued on lasix IV , aspirin, statins, Imdur and metoprolol. Losartan is on hold due to cKD CT surgery and cardiology is on board. Evaluating for cardiac revascularization surgery. Nephrology is following due to chronic kidney disease. will hold oral hypoglycemics and start on insulin regimen Labs and medication were reviewed. Monitor lytes and vitals. DVT and GI prophylaxis. Further recommendations as per clinical course of the patient DVT prophylaxis : Heparin GI Prophylaxis: Pepcid PT/OT: Pending Prognosis is guarded Time with Patient: Greater than 30
[2020-07-18 05:59] LABS: Glucose,Whole Blood 122 mg/dL (75-99)
[2020-07-18 06:23] LABS: HCT 29.9 % (34.0-46.0); HGB 10.6 gm/dL (11.4-16.0); MCH 32.9 pg (25.0-35.0); MCHC 35.4 g/dL (31.0-37.0); MCV 92.9 fL (80.0-100.0); Platelet Count 258 k/uL (150-450); RBC 3.22 m/uL (3.80-5.40); RDW 13.4 % (11.5-15.5)
[2020-07-18] MEDS: INSULIN ASPART (NovoLOG) 100 UNIT/ML VIAL SQ SCH ×4 (06:30→20:34)
[2020-07-18 06:33] LABS: Calcium 9.1 mg/dL (8.4-10.2); Potassium 3.7 mmol/L (3.5-5.1)
--- NOTE | 2020-07-18 07:44 | P.PN ---
Subjective Progress Note Date: 07/18/20 Principal diagnosis: Symptomatic multivessel coronary artery disease, non-STEMI this admission, acute on chronic systolic congestive heart failure, EF 30-35%, moderate mitral valve regurgitation. Previous medical history of chronic kidney disease stage IV, diabetes mellitus type 2, hypertension, hyperlipidemia, lifetime nonsmoker with severe obstruction and preoperative FEV1 41% of predicted, and family history of early onset coronary artery disease with her father having a myocardial infarction in his mid 40s The patient was seen and examined on the cardiac stepdown unit this morning, sitting up in a recliner eating breakfast in no acute distress. She denies any chest pain, states shortness of breath is getting better, appears comfortable at rest on room air. Await dental clearance. Objective - Vital Signs Vital signs: Vital Signs Temp 97.8 F 07/18/20 04:00 Pulse 70 07/18/20 04:00 Resp 16 07/18/20 04:00 BP 135/62 07/18/20 04:00 Pulse Ox 98 07/18/20 04:00 Intake & Output 07/17/20 07/18/20 07/18/20 18:59 06:59 18:59 Intake Total 240 Output Total 1550 Balance -1310 Weight 86.9 kg Intake: Oral 240 Output: Urine 1550 Other: Voiding Method Toilet Toilet # Voids 2 # Bowel Movements 0 - Exam CONSTITUTIONAL: Appears comfortable, cooperative, no acute distress RESPIRATORY: Lungs sounds diminished bilaterally. Respirations even, nonlabored. Currently on room air with oxygen saturation 97%. Able to achieve 1500 mL on incentive spirometry. Strong cough. CARDIOVASCULAR: S1, S2 present. Regular rate and rhythm, sinus rhythm on telemetry. Palpable peripheral pulses bilaterally. Bilateral lower extremity edema present. No calf pain or tenderness noted. GASTROINTESTINAL: Abdomen soft, nontender, nondistended. Active bowel sounds present 4 quadrants. Tolerating diet. GENITOURINARY: Continues to void INTEGUMENTARY: Skin is warm and dry with evidence of good perfusion. NEUROLOGIC: Cranial nerves II through XII intact MUSKULOSKELETAL: Able to move all extremities, strength equal bilaterally, gait normal PSYCHIATRIC: Alert and oriented to person place and time, appropriate affect, intact judgment and insight - Allied health notes Allied health notes reviewed: nursing - Labs CBC & Chem 7: 07/18/20 05:51 07/18/20 05:51 Labs: Abnormal Lab Results - Last 24 Hours (Table) 07/17/20 07/17/20 07/17/20 Range/Units 07:04 07:04 11:56 RBC 3.31 L (3.80-5.40) m/uL Hgb 10.5 L (11.4-16.0) gm/dL Hct 31.1 L (34.0-46.0) % Carbon Dioxide 32 H (22-30) mmol/L BUN 34 H (7-17) mg/dL Creatinine 1.78 H (0.52-1.04) mg/dL Glucose 126 H (74-99) mg/dL POC Glucose (mg/dL) 212 H (75-99) mg/dL 07/17/20 07/17/20 07/18/20 Range/Units 17:01 19:57 05:51 RBC 3.22 L (3.80-5.40) m/uL Hgb 10.6 L (11.4-16.0) gm/dL Hct 29.9 L (34.0-46.0) % Carbon Dioxide (22-30) mmol/L BUN (7-17) mg/dL Creatinine (0.52-1.04) mg/dL Glucose (74-99) mg/dL POC Glucose (mg/dL) 252 H 227 H (75-99) mg/dL 07/18/20 07/18/20 Range/Units 05:51 05:57 RBC (3.80-5.40) m/uL Hgb (11.4-16.0) gm/dL Hct (34.0-46.0) % Carbon Dioxide (22-30) mmol/L BUN 31 H (7-17) mg/dL Creatinine 1.86 H (0.52-1.04) mg/dL Glucose 119 H (74-99) mg/dL POC Glucose (mg/dL) 122 H (75-99) mg/dL Assessment and Plan Assessment: 1. Symptomatic multivessel coronary artery disease, non-STEMI this admission 2. Acute on chronic systolic congestive heart failure, EF 30-35% 3. Moderate mitral valve regurgitation on SLOANE 4. Dyspnea on admission, secondary to acute heart failure, proBNP on admission 14,500 5. Chronic kidney disease stage IV, baseline creatinine around 1.9 per nephrology 6. Diabetes mellitus type 2, hemoglobin A1c is 8.7% 7. Hypertension 8. Hyperlipidemia, treated, cholesterol 157, LDL 75 9. Lifetime nonsmoker 10. Severe obstruction, preoperative FEV1 41% of predicted with moderate increased operative risk per pulmonology 11. Family history of early onset coronary artery disease with her father having a myocardial infarction in his mid 40s Plan: 1. Continue to optimize medical management with aspirin, statin, and beta charity. 2. Continue lasix 40 mg daily per nephrology 3. Increase activity as tolerated 4. Medical management and diabetes management per primary care service. 5. Our plan is for CABG with mitral valve repair, likely Monday07/21/20 if the patient receives dental clearance 6. Patient will need dental clearance for valve surgery. Await dentist for clearance, likely to be seen today 7. Pulmonology states moderate increased operative risk 8. More recommendations to follow Time with Patient: Greater than 30
[2020-07-18] MEDS: ISOSORBIDE MONONITRATE ER 30 MG TAB.ER.24H PO SCH (08:20)
[2020-07-18] MEDS: METOPROLOL TARTRATE 50 MG TAB PO SCH ×2 (08:20→20:35)
[2020-07-18] MEDS: allopurinoL 100 MG TAB PO SCH (08:20)
[2020-07-18] MEDS: FAMOTIDINE 20 MG TAB PO SCH (08:20)
[2020-07-18] MEDS: LINAGLIPTIN 5 MG TABLET PO SCH (08:20)
[2020-07-18] MEDS: FUROSEMIDE 10 MG/ML 4 ML VIAL IV SCH (08:20)
[2020-07-18] MEDS: MUPIROCIN 2% OINT 22 GM TUBE NASAL SCH ×2 (08:21→20:35)
[2020-07-18] MEDS: ASPIRIN 81 MG PO SCH (08:22)
--- NOTE | 2020-07-18 09:21 | PN ---
PROGRESS NOTE Mrs. Chase is awaiting aortocoronary bypass surgery and possible mitral valve ring. She is in sinus rhythm, comfortable. I am recommending a CBC and BMP to be performed. She is also being followed by Nephrology for diabetes and chronic kidney disease. She is awaiting further evaluation from the dentist prior to mitral valve repair and bypass surgery. Vitals are stable. No JVD. S1-S2 heard normally. Short systolic murmur is audible at the apex and left sternal border. Lungs revealed bilateral decent air entry. Abdomen is soft. Lower extremities reveal normal pulses. Central nervous system normal. RECOMMENDATIONS: Same medications. Check a CBC, BMP. We are awaiting dental evaluation. Possible surgery soon with mitral valve ring and bypass surgery for severe calcified triple- vessel disease. MMODL / IJN: [id number] /
--- NOTE | 2020-07-18 09:35 | P.GSCN ---
History of Present Illness Consult date: 07/18/20 Reason for Consult: Pt presented with no pain or swelling, or any dental complaint. Radiographically, the panorex show no radiolucency at any apices of roots, nor any sever bone loss. Intra oral exam reveals a lot of supra gingival calculus suggesting patient is well past due her hygiene appt, however the gingiva has no infection. Teeth are not mobile, no percussion testing positivity, nor pain or tenderness on pressure to buccal vestibule. Recommended to pt to seek dental hygiene at a dentist office once she is medically stable and ok'd by her doctor. No need for any dental tx prior to surgery. Thank you for your kind referral Past Medical History Past Medical History: Coronary Artery Disease (CAD), Diabetes Mellitus, Hyperlipidemia, Hypertension, Myocardial Infarction ([place]), Renal Disease, Respiratory Disorder Additional Past Medical History / Comment(s): Stage IIIb/IV kidney disease, heart murmur. Pt had COVID 19 Moderna vaccine on 05/07/20 & 06/04/20. History of Any Multi-Drug Resistant Organisms: None Reported Additional Past Surgical History / Comment(s): skin CA removal, bilateral cataracts Past Anesthesia/Blood Transfusion Reactions: No Reported Reaction Past Psychological History: No Psychological Hx Reported Smoking Status: Never smoker Past Alcohol Use History: None Reported Past Drug Use History: None Reported - Past Family History Father Family Medical History: Myocardial Infarction ([place]) (Her father had a heart attack in his mid 40s and from a myocardial infarction at age 64) Additional Family Medical History / Comment(s): "heart issues" Mother Family Medical History: Diabetes Mellitus, Hypertension Medications and Allergies Home Medications Medication Instructions Recorded Confirmed Type Allopurinol [Zyloprim] 100 mg PO DAILY 07/10/20 07/10/20 History Aspirin EC [Ecotrin Low Dose] 81 mg PO DAILY 07/10/20 07/10/20 History Cholecalciferol [Vitamin D3 (25 25 mcg PO DAILY 07/10/20 07/10/20 History Mcg = 1000 Iu)] Glimepiride [Amaryl] 2 mg PO BID 07/10/20 07/10/20 History Losartan Potassium 50 mg PO DAILY 07/10/20 07/10/20 History Metoprolol Succinate (ER) [Toprol 50 mg PO DAILY 07/10/20 07/10/20 History Xl] Pioglitazone [Actos] 30 mg PO DAILY 07/10/20 07/10/20 History Simvastatin [Zocor] 40 mg PO HS 07/10/20 07/10/20 History Spironolactone 50 mg PO HS 07/10/20 07/10/20 History sitaGLIPtin [Januvia] 50 mg PO DAILY 07/10/20 07/10/20 History Allergies Allergy/AdvReac Type Severity Reaction Status Date / Time No Known Allergies Allergy Verified 07/10/20 08:46 Surgical - Exam Vital Signs Temp Pulse Resp BP Pulse Ox 98.0 F 78 18 146/82 99 07/10/20 06:02 07/10/20 06:02 07/10/20 06:02 07/10/20 06:02 07/10/20 06:02 Results - Labs 07/18/20 05:51 07/18/20 05:51 Abnormal Lab Results - Last 24 Hours (Table) 07/17/20 07/17/20 07/17/20 Range/Units 11:56 17:01 19:57 RBC (3.80-5.40) m/uL Hgb (11.4-16.0) gm/dL Hct (34.0-46.0) % BUN (7-17) mg/dL Creatinine (0.52-1.04) mg/dL Glucose (74-99) mg/dL POC Glucose (mg/dL) 212 H 252 H 227 H (75-99) mg/dL 07/18/20 07/18/20 07/18/20 Range/Units 05:51 05:51 05:57 RBC 3.22 L (3.80-5.40) m/uL Hgb 10.6 L (11.4-16.0) gm/dL Hct 29.9 L (34.0-46.0) % BUN 31 H (7-17) mg/dL Creatinine 1.86 H (0.52-1.04) mg/dL Glucose 119 H (74-99) mg/dL POC Glucose (mg/dL) 122 H (75-99) mg/dL Diabetes panel 07/18/20 Range/Units 05:51 Sodium 139 (137-145) mmol/L Potassium 3.7 (3.5-5.1) mmol/L Chloride 100 (98-107) mmol/L Carbon Dioxide 28 (22-30) mmol/L BUN 31 H (7-17) mg/dL Creatinine 1.86 H (0.52-1.04) mg/dL Glucose 119 H (74-99) mg/dL Calcium 9.1 (8.4-10.2) mg/dL Calcium panel 07/18/20 Range/Units 05:51 Calcium 9.1 (8.4-10.2) mg/dL Pituitary panel 07/18/20 Range/Units 05:51 Sodium 139 (137-145) mmol/L Potassium 3.7 (3.5-5.1) mmol/L Chloride 100 (98-107) mmol/L Carbon Dioxide 28 (22-30) mmol/L BUN 31 H (7-17) mg/dL Creatinine 1.86 H (0.52-1.04) mg/dL Glucose 119 H (74-99) mg/dL Calcium 9.1 (8.4-10.2) mg/dL Adrenal panel 07/18/20 Range/Units 05:51 Sodium 139 (137-145) mmol/L Potassium 3.7 (3.5-5.1) mmol/L Chloride 100 (98-107) mmol/L Carbon Dioxide 28 (22-30) mmol/L BUN 31 H (7-17) mg/dL Creatinine 1.86 H (0.52-1.04) mg/dL Glucose 119 H (74-99) mg/dL Calcium 9.1 (8.4-10.2) mg/dL
--- NOTE | 2020-07-18 10:00 | P.PN ---
Subjective Patient is seen in follow-up for chronic kidney disease. Patient has chronic kidney disease stage IV with baseline creatinine in the range of 1.72. GFR at baseline. Good urine output. No chest pain. Vital signs are stable. General: The patient appeared well nourished and normally developed. HEENT: Head exam is unremarkable. Neck is without jugular venous distension. LUNGS: Breath sounds decreased. HEART: Rate and Rhythm are regular. ABDOMEN: Soft, no distention. EXTREMITITES: Trace edema. Objective - Vital Signs Vital signs: Vital Signs Temp 98.2 F 07/18/20 08:18 Pulse 71 07/18/20 08:18 Resp 16 07/18/20 08:18 BP 147/74 07/18/20 08:18 Pulse Ox 98 07/18/20 08:18 Intake & Output 07/17/20 07/18/20 07/18/20 18:59 06:59 18:59 Intake Total 240 Output Total 1550 Balance -1310 Weight 86.9 kg Intake: Oral 240 Output: Urine 1550 Other: Voiding Method Toilet Toilet Toilet # Voids 2 # Bowel Movements 0 - Labs CBC & Chem 7: 07/18/20 05:51 07/18/20 05:51 Labs: Abnormal Lab Results - Last 24 Hours (Table) 07/17/20 07/17/20 07/17/20 Range/Units 11:56 17:01 19:57 RBC (3.80-5.40) m/uL Hgb (11.4-16.0) gm/dL Hct (34.0-46.0) % BUN (7-17) mg/dL Creatinine (0.52-1.04) mg/dL Glucose (74-99) mg/dL POC Glucose (mg/dL) 212 H 252 H 227 H (75-99) mg/dL 07/18/20 07/18/20 07/18/20 Range/Units 05:51 05:51 05:57 RBC 3.22 L (3.80-5.40) m/uL Hgb 10.6 L (11.4-16.0) gm/dL Hct 29.9 L (34.0-46.0) % BUN 31 H (7-17) mg/dL Creatinine 1.86 H (0.52-1.04) mg/dL Glucose 119 H (74-99) mg/dL POC Glucose (mg/dL) 122 H (75-99) mg/dL Assessment and Plan Plan: Assessment: 1. 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 Baseline creatinine 1.5-2. GFR at baseline. 2. Coronary artery disease status post cardiac catheterization on 07/12/2020. CABG scheduled for Monday. 3. Acute on chronic systolic CHF with ejection fraction of 30-35% with moderate mitral regurgitation and pulmonary hypertension. 4. Metabolic acidosis secondary to chronic kidney disease. Resolved. 5. Diabetes mellitus. 6. Volume overload. Improved with diuresis. 7. Acute hypoxic respiratory failure. Currently on room air. Plan: Maintain IV Lasix 40 mg daily. Avoid nephrotoxins. Continue to monitor renal function and urine output.
--- NOTE | 2020-07-18 10:18 | P.PN ---
Subjective Progress Note Date: 07/18/20 70-year-old female patient who is being seen for preop pulmonary clearance regarding coronary artery bypass surgery. The patient has multivessel coronary artery disease and she is post family. Morbid conditions include hypertension, hyperlipidemia, diabetes mellitus type 2 and chronic kidney disease stage IIIB/4. She presented to the hospital because of worsening shortness of breath and chest pain. She was ruled in for non-STEMI. Her troponins were elevated and it peaked at 12.7. Pro-calcitonin level was 0.23. Lactic acid level was 1.4. Chest x-ray showed small bilateral pleural effusions. There was also evidence of pulmonary vascular congestion. Cardiac catheterization was performed and please refer to the results as the patient was found to have triple-vessel disease with critical stenosis involving the LAD 60% in the circumflex, 70-80% and RCA. Patient has already received COVID-19 vaccination. Patient has no complaints and currently she is free of any chest pain. Echocardiogram was done and the patient has an ejection fraction of 30-35% and moderate mitral regurgitation. She is currently on room air oxygen and her pulse ox is around 98%. 07/18/2020, condition is stable. No new complaints for now. The patient is hemodynamically stable and the patient is awaiting cardiac surgery and she is tentatively scheduled to undergo the surgery on 07/21/2020. No new complaints otherwise for now. She is being treated with diuretics and she remains on Lasix 40 mg IV every 24 hours. She is on room air oxygen. She is free of any chest pain. She is on Levemir insulin 10 units along with a Silastic coverage. She is using incentive spirometer. Dental clearance was also given. Objective - Vital Signs Vital signs: Vital Signs Temp 98.2 F 07/18/20 08:18 Pulse 71 07/18/20 08:18 Resp 16 07/18/20 08:18 BP 147/74 07/18/20 08:18 Pulse Ox 98 07/18/20 08:18 Intake & Output 07/17/20 07/18/20 07/18/20 18:59 06:59 18:59 Intake Total 240 Output Total 1550 Balance -1310 Weight 86.9 kg Intake: Oral 240 Output: Urine 1550 Other: Voiding Method Toilet Toilet Toilet # Voids 2 # Bowel Movements 0 - Exam CONSTITUTIONAL: Appears comfortable, cooperative, no acute distress RESPIRATORY: Lungs sounds diminished bilaterally. Respirations even, nonlabored. Currently on room air with oxygen saturation 95%. Able to achieve 1500 mL on incentive spirometry. Strong cough. CARDIOVASCULAR: S1, S2 present. Regular rate and rhythm, sinus rhythm on telemetry. Palpable peripheral pulses bilaterally. Bilateral lower extremity edema present. No calf pain or tenderness noted. GASTROINTESTINAL: Abdomen soft, nontender, nondistended. Active bowel sounds present 4 quadrants. Tolerating diet. GENITOURINARY: Continues to void INTEGUMENTARY: Skin is warm and dry with evidence of good perfusion. NEUROLOGIC: Cranial nerves II through XII intact MUSKULOSKELETAL: Able to move all extremities, strength equal bilaterally, gait normal PSYCHIATRIC: Alert and oriented to person place and time, appropriate affect, intact judgment and insight - Labs CBC & Chem 7: 07/18/20 05:51 07/18/20 05:51 Labs: Abnormal Lab Results - Last 24 Hours (Table) 07/17/20 07/17/20 07/17/20 Range/Units 11:56 17:01 19:57 RBC (3.80-5.40) m/uL Hgb (11.4-16.0) gm/dL Hct (34.0-46.0) % BUN (7-17) mg/dL Creatinine (0.52-1.04) mg/dL Glucose (74-99) mg/dL POC Glucose (mg/dL) 212 H 252 H 227 H (75-99) mg/dL 07/18/20 07/18/20 07/18/20 Range/Units 05:51 05:51 05:57 RBC 3.22 L (3.80-5.40) m/uL Hgb 10.6 L (11.4-16.0) gm/dL Hct 29.9 L (34.0-46.0) % BUN 31 H (7-17) mg/dL Creatinine 1.86 H (0.52-1.04) mg/dL Glucose 119 H (74-99) mg/dL POC Glucose (mg/dL) 122 H (75-99) mg/dL Assessment and Plan Plan: 1 symptomatic multivessel coronary artery disease, triple-vessel involvement and the patient is postop STEMI. Patient has also mitral regurgitation the patient was in acute CHF at the time of admission. Currently she is being considered for coronary artery bypass surgery and mitral valve repair. 2 CHF with an ejection fraction of 30-35% 3 moderate to severe mitral regurgitation 4 lower extremity edema 5 chronic stage IIIB/for kidney disease 5 diabetes mellitus type 2 6 hypertension 7 hyperlipidemia 8 lifetime nonsmoker Plan The patient was evaluated. I noted that at the time of her initial evaluation with a chest x-ray and spirometry was done, the patient was and pulmonary edema and CHF. As such, the chest x-rays of normal and shows about the pleural effusions and interstitial edema. As for spirometry, it is showing a restrictive lung physiology related to pulmonary edema. The FEV1 was 41% of predicted and the ratio FEV1 over FVC was 86. As such, this is typical of restriction which is probably related to her CHF and decision edema. My r ecommendations are to proceed with surgery. I think she will do fine follow pulmonary standpoint. She does not have any chronic lung disease. No history of asthma or emphysema. Currently is on room air oxygen with a pulse of 98%. She is being diuresed IV Lasix and I do anticipate improvement of the chest x- ray findings and in the spirometry. On today's evaluation, the patient was rechecked and she has no active issues for now. We'll continue to follow. Surgery is scheduled on 07/21/2020.
[2020-07-18 11:36] LABS: Glucose,Whole Blood 216 mg/dL (75-99)
[2020-07-18] MEDS: HEPARIN SODIUM,PORCINE/PF 5,000 UNIT/0.5 ML SYRINGE SQ SCH (15:41)
[2020-07-18 16:45] LABS: Glucose,Whole Blood 204 mg/dL (75-99)
[2020-07-18 20:14] LABS: Glucose,Whole Blood 256 mg/dL (75-99)
[2020-07-18] MEDS: INSULIN DETEMIR (LEVEMIR) 100 UNIT/ML SYR SQ SCH (20:34)
[2020-07-18] MEDS: ATORVASTATIN 80 MG TAB PO SCH (20:35)
[2020-07-19] MEDS: HEPARIN SODIUM,PORCINE/PF 5,000 UNIT/0.5 ML SYRINGE SQ SCH ×3 (00:32→16:12)
[2020-07-19 06:28] LABS: Glucose,Whole Blood 97 mg/dL (75-99)
[2020-07-19] MEDS: INSULIN ASPART (NovoLOG) 100 UNIT/ML VIAL SQ SCH ×4 (06:28→20:21)
[2020-07-19] MEDS: LINAGLIPTIN 5 MG TABLET PO SCH (08:31)
[2020-07-19] MEDS: ASPIRIN 81 MG PO SCH (08:31)
[2020-07-19] MEDS: FAMOTIDINE 20 MG TAB PO SCH (08:32)
[2020-07-19] MEDS: MUPIROCIN 2% OINT 22 GM TUBE NASAL SCH ×2 (08:32→20:21)
[2020-07-19] MEDS: ISOSORBIDE MONONITRATE ER 30 MG TAB.ER.24H PO SCH (08:32)
[2020-07-19] MEDS: FUROSEMIDE 10 MG/ML 4 ML VIAL IV SCH (08:32)
[2020-07-19] MEDS: METOPROLOL TARTRATE 50 MG TAB PO SCH ×2 (08:32→20:21)
[2020-07-19] MEDS: allopurinoL 100 MG TAB PO SCH (08:32)
--- NOTE | 2020-07-19 11:00 | P.PN ---
Subjective Patient is seen in follow-up for chronic kidney disease. Patient has chronic kidney disease stage IV with baseline creatinine in the range of 1.7-2. GFR at baseline. Good urine output. No chest pain. CABG scheduled for Monday. Vital signs are stable. General: The patient appeared well nourished and normally developed. HEENT: Head exam is unremarkable. Neck is without jugular venous distension. LUNGS: Breath sounds decreased. HEART: Rate and Rhythm are regular. ABDOMEN: Soft, no distention. EXTREMITITES: Trace edema. Objective - Vital Signs Vital signs: Vital Signs Temp 97.9 F 07/19/20 08:30 Pulse 66 07/19/20 08:30 Resp 16 07/19/20 08:30 BP 147/75 07/19/20 08:30 Pulse Ox 99 07/19/20 08:30 Intake & Output 07/18/20 07/19/20 07/19/20 18:59 06:59 18:59 Intake Total 720 118 Output Total 400 Balance 720 -400 118 Weight 86.5 kg Intake: Oral 720 118 Output: Urine 400 Other: Voiding Method Toilet Toilet Toilet # Voids 1 1 - Labs CBC & Chem 7: 07/18/20 05:51 07/18/20 05:51 Labs: Abnormal Lab Results - Last 24 Hours (Table) 07/18/20 07/18/20 07/18/20 Range/Units 11:34 16:43 19:59 POC Glucose (mg/dL) 216 H 204 H 256 H (75-99) mg/dL Assessment and Plan Plan: Assessment: 1. 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 Baseline creatinine 1.5-2. GFR at baseline. 2. Coronary artery disease status post cardiac catheterization on 07/12/2020. CABG scheduled for Monday. 3. Acute on chronic systolic CHF with ejection fraction of 30-35% with moderate mitral regurgitation and pulmonary hypertension. 4. Metabolic acidosis secondary to chronic kidney disease. Resolved. 5. Diabetes mellitus. 6. Volume overload. Improved with diuresis. 7. Acute hypoxic respiratory failure. Currently on room air. Plan: Maintain IV Lasix 40 mg daily. Avoid nephrotoxins. Continue to monitor renal function and urine output.
[2020-07-19 11:46] LABS: Glucose,Whole Blood 187 mg/dL (75-99)
--- NOTE | 2020-07-19 13:02 | PN ---
PROGRESS NOTE Mrs. Chase is comfortable, resting. Creatinine is about 1.8. Has no chest pain today. Vital signs stable. No JVD. S1, S2 heard normally. Short systolic murmur noted at the base. Lungs are clear. Abdomen is soft, nontender. Lower extremities reveal diminished pulses. Central nervous system is normal. This patient was seen by the dentist, Dr. Castorena and was advised that she can proceed with surgery. There is no contraindication. I am recommending that she should proceed with aortocoronary bypass surgery with mitral valve ring if necessary. Doctors Nahun and Dr. Guillaume are involved. No other suggestions from a cardiac standpoint, MMODL / IJN: [id number] /
[2020-07-19 16:54] LABS: Glucose,Whole Blood 180 mg/dL (75-99)
[2020-07-19 19:16] LABS: Glucose,Whole Blood 203 mg/dL (75-99)
[2020-07-19] MEDS: INSULIN DETEMIR (LEVEMIR) 100 UNIT/ML SYR SQ SCH (20:21)
[2020-07-19] MEDS: ATORVASTATIN 80 MG TAB PO SCH (20:21)
[2020-07-20] MEDS: HEPARIN SODIUM,PORCINE/PF 5,000 UNIT/0.5 ML SYRINGE SQ SCH ×3 (00:20→16:47)
--- NOTE | 2020-07-20 00:55 | P.PN ---
Subjective Progress Note Date: 07/18/20 Principal diagnosis: Acute non-ST elevated [place] Multivessel coronary artery disease This is a pleasant 70 years old female with past medical history of diabetes mellitus, hypertension, hyperlipidemia, stage IV chronic kidney disease. He is a patient of Dr. Barnett presents because OF chest pain and progressive dyspnea over few days. Her chest pain started last Monday for 3-4 days ago, it improved gradually but got worse yesterday. Pain was coming and going. Last night it did not go away so decided to come to the hospital. Was about 5/70 severity on the left side, none dictated. Associated with orthopnea and paroxysmal nocturnal dyspnea. She has to sit up to avoid shortness of breath. She has some little cough and phlegm. Pathak catheter was placed in the emergency room. No GI or urinary symptoms initially patient admitted with oxygen supplemented via BiPAP machine including this morning, currently her breathing is improving and she is only on 4 L oxygen and is She denies smoking, alcohol or illicit drugs. Currently she is saturating 96% on 4 L nasal cannula, patient is afebrile. Lap showing WBC of 11.0 K, hemoglobin 11.3, INR is 1.0, sodium 135, creatinine is 1.8. Baseline 1.8-2.2. INR is normal 1.0, trace of BMP and liver enzymes are unremarkable. Troponin is elevated at 0.6 [place] [address]. Physical exam, no espinal virus are not detected. Echocardiogram: October ejection fraction 30-35%, several wall motion abnormality chest x-ray: Bilateral lung capacity, edema or infection In the emergency room patient was started on aspirin, heparin drip, lorazepam, furosemide 40 mg IV once. 07/11/2020 Patient with minimal symptoms today however lying in bed most of the time. She has chest pain on and off Hemodynamically stable Creatinine stable at 1.9, nephrology on the case as patient is going for cardiac cath, adequate sodium bicarb today. 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 Nothing by mouth after midnight In the meantime patient remains on heparin drip, IV Lasix. Also she is on aspirin. 07/12/20 Patient remains with minimal symptoms while she is at rest. Chest pain on and off. Hemodynamically stable. And her creatinine only slightly up over the last 2 days 1.8, 1.9 and 2.0 today, personal trainer stopped her IV Lasix and Cozaar as well. Patient underwent cardiac cath today and found to have severe triple vessel coronary artery disease, cardiothoracic surgery team is Consulted. Patient heparin drip was stopped and started on nitroglycerin drip. Lasix, Cozaar and D5W were stopped and patient was started on normal saline at 75 mL/h. May consider to stop normal saline tomorrow 07/13/2020 This is [age] years old female presents because of non-STEMI and ischemic cardiomyopathy with ejection fraction 30-35%. Underwent cardiac cath showing severe triple vessel coronary artery disease and isn't currently been evaluated by cardiothoracic surgery for bypass procedure. Also echocardiogram showing moderate mitral regurgitation and moderate pulmonary hypertension Also patient is followed closely by nephrology to follow her chronic kidney disease stage 3-4, currently her creatinine stable at 1.9, Cozaar was held. Hepatitis panel negative. Patient was sitting of double chair with no chest pain and no other symptoms. And she is hemodynamically stable 07/14/2020 Patient is currently sitting in chair comfortably. No complaints of chest pain shortness of breath. No headache or dizziness or lightheadedness. No fever no chills. No nausea vomiting or abdominal pain or diarrhea. Tolerating oral diet. Patient is being continued on aspirin statins and Imdur and metoprolol. 2D echocardiogram flexion fraction 30 to 35% with severe hypokinesis of the anterior apical, anteroseptal wall. Losartan is on hold due to elevated creatinine level. Cardiology and CT surgery is on board. Evaluating for revascularization surgery. Laboratory data showed sodium 136 potassium 4.1 BUN 38 and creatinine 1.89 07/15/2020 Patient is currently resting in the chair comfortably. No complaints of chest pain or shortness of breath. EKG showed sinus rhythm with persistent anterior notions in the precordial leads. Laboratory data showed WBC 6.6 hemoglobin 9.8 platelets 180, sodium 136 potassium 4.1 BUN 36 and creatinine 1.87 and magnesium 1.8 Lower extremity arterial duplex. The left side is normal. Possibly mild infra popliteal disease on the right. Perfusion pressures appear adequate. Vein mapping was done today. Denied any nausea vomiting abdominal pain or diarrhea. 07/16/2020 Patient is currently sitting in a chair. No complaints of chest pain or shortness of breath. Titrate down oxygen to room air now. patient had SLOANE done today. Facial CT showed paranasal sinuses are grossly clear. Multiple cavitary petra lings in the bilateral premolar and molar teeth causing streak artifact limiting evaluation at these levels. Patient has been afebrile. No nausea vomiting or abdominal pain or diarrhea. Follow-up CBC and BMP tomorrow. Cardiology, CT surgery is on board. 07/17/2020 Patient is currently sitting in a chair comfortably no complaints of chest pain or shortness breath. 97% on room air. CT face showed multiple cavitary fillings in the bilateral premolar, molar teeth causing streak artifact limiting evaluation. Patient is scheduled for dental evaluation today. No fever no chills. No cough or sputum production. Patient is being treated insulin sliding scale. Also Actos and linagliptin and Amaryl. Lab data showed WBC 6.1 hemoglobin 10.5 and platelets 237, sodium 138 potassium 3.8 bicarb is 32 BUN 34 and creatinine 1.78, calcium 9.0 07/18/2020. Patient is currently sitting in the chair comfortably. Patient is scheduled for cardiac revascularization surgery for 1120. No complaints of ches t pain or shortness breath. Patient was started Levemir 10 units at bedtime and insulin sliding scale. Continue to hold oral hypoglycemics. Patient has been continued Lasix 40 mg IV daily. Nephrology and pulmonary is on board. Current medications reviewed. Objective - Vital Signs Vital signs: Vital Signs Temp 98.2 F 07/18/20 15:39 Pulse 63 07/18/20 15:39 Resp 16 07/18/20 15:39 BP 120/59 07/18/20 16:00 Pulse Ox 96 07/18/20 15:39 Intake & Output 07/17/20 07/18/20 07/18/20 18:59 06:59 18:59 Intake Total 240 480 Output Total 1550 Balance -1310 480 Weight 86.9 kg Intake: Oral 240 480 Output: Urine 1550 Other: Voiding Method Toilet Toilet Toilet # Voids 2 1 # Bowel Movements 0 - Exam GENERAL: The patient is alert and oriented x3, not in any acute distress. Well developed, well nourished. HEENT: Pupils are round and equally reacting to light. EOMI. No scleral icterus. No conjunctival pallor. Normocephalic, atraumatic. No pharyngeal erythema. No thyromegaly. CARDIOVASCULAR: S1 and S2 present. No murmurs, rubs, or gallops. PULMONARY: Chest is clear to auscultation, no wheezing or crackles. ABDOMEN: Soft, nontender, nondistended, normoactive bowel sounds. No palpable organomegaly. MUSCULOSKELETAL: No joint swelling or deformity. EXTREMITIES: No cyanosis, clubbing, or pedal edema. NEUROLOGICAL: Gross neurological examination did not reveal any focal deficits. SKIN: No rashes. no petechiae. - Labs CBC & Chem 7: 07/18/20 05:51 07/18/20 05:51 Labs: Abnormal Lab Results - Last 24 Hours (Table) 07/17/20 07/17/20 07/18/20 Range/Units 17:01 19:57 05:51 RBC 3.22 L (3.80-5.40) m/uL Hgb 10.6 L (11.4-16.0) gm/dL Hct 29.9 L (34.0-46.0) % BUN (7-17) mg/dL Creatinine (0.52-1.04) mg/dL Glucose (74-99) mg/dL POC Glucose (mg/dL) 252 H 227 H (75-99) mg/dL 07/18/20 07/18/20 07/18/20 Range/Units 05:51 05:57 11:34 RBC (3.80-5.40) m/uL Hgb (11.4-16.0) gm/dL Hct (34.0-46.0) % BUN 31 H (7-17) mg/dL Creatinine 1.86 H (0.52-1.04) mg/dL Glucose 119 H (74-99) mg/dL POC Glucose (mg/dL) 122 H 216 H (75-99) mg/dL 07/18/20 Range/Units 16:43 RBC (3.80-5.40) m/uL Hgb (11.4-16.0) gm/dL Hct (34.0-46.0) % BUN (7-17) mg/dL Creatinine (0.52-1.04) mg/dL Glucose (74-99) mg/dL POC Glucose (mg/dL) 204 H (75-99) mg/dL Assessment and Plan Assessment: Multivessel coronary artery disease acute systolicCHF exacerbation, ejection fraction 30-35% and moderate MR Acute hypoxic respiratory failure secondary to both non-stemi with chest pain and elevated troponin. Diabetes mellitus 2 Hypertension Hyperlipidemia stage IV chronic kidney disease Ongoing nicotine addiction DVT prophylaxis Plan: this is a pleasant 70 years old female who presents with CHF and non-STEMI. Patient is status post cardiac catheterization multivessel coronary disease.Patient is being continued on lasix IV , aspirin, statins, Imdur and metoprolol. Losartan is on hold due to cKD CT surgery and cardiology is on board. Evaluating for cardiac revascularization surgery. Nephrology is following due to chronic kidney disease. will hold oral hypoglycemics and started on insulin regimen Labs and medication were reviewed. Monitor lytes and vitals. DVT and GI prophylaxis. Further recommendations as per clinical course of the patient DVT prophylaxis : Heparin GI Prophylaxis: Pepcid PT/OT: Pending Prognosis is guarded Time with Patient: Greater than 30
--- NOTE | 2020-07-20 00:57 | P.PN ---
Subjective Progress Note Date: 07/19/20 Principal diagnosis: Acute non-ST elevated MD Multivessel coronary artery disease This is a pleasant 70 years old female with past medical history of diabetes mellitus, hypertension, hyperlipidemia, stage IV chronic kidney disease. He is a patient of Dr. Barnett presents because OF chest pain and progressive dyspnea over few days. Her chest pain started last Monday for 3-4 days ago, it improved gradually but got worse yesterday. Pain was coming and going. Last night it did not go away so decided to come to the hospital. Was about 5/70 severity on the left side, none dictated. Associated with orthopnea and paroxysmal nocturnal dyspnea. She has to sit up to avoid shortness of breath. She has some little cough and phlegm. Pathak catheter was placed in the emergency room. No GI or urinary symptoms initially patient admitted with oxygen supplemented via BiPAP machine including this morning, currently her breathing is improving and she is only on 4 L oxygen and is She denies smoking, alcohol or illicit drugs. Currently she is saturating 96% on 4 L nasal cannula, patient is afebrile. Lap showing WBC of 11.0 K, hemoglobin 11.3, INR is 1.0, sodium 135, creatinine is 1.8. Baseline 1.8-2.2. INR is normal 1.0, trace of BMP and liver enzymes are unremarkable. Troponin is elevated at 0.6 [place] 1[place] [address]. Physical exam, no espinal virus are not detected. Echocardiogram: October ejection fraction 30-35%, several wall motion abnormality chest x-ray: Bilateral lung capacity, edema or infection In the emergency room patient was started on aspirin, heparin drip, lorazepam, furosemide 40 mg IV once. 07/11/2020 Patient with minimal symptoms today however lying in bed most of the time. She has chest pain on and off Hemodynamically stable Creatinine stable at 1.9, nephrology on the case as patient is going for cardiac cath, adequate sodium bicarb today. 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 Nothing by mouth after midnight In the meantime patient remains on heparin drip, IV Lasix. Also she is on aspirin. 07/12/20 Patient remains with minimal symptoms while she is at rest. Chest pain on and off. Hemodynamically stable. And her creatinine only slightly up over the last 2 days 1.8, 1.9 and 2.0 today, gunner's mate stopped her IV Lasix and Cozaar as well. Patient underwent cardiac cath today and found to have severe triple vessel coronary artery disease, cardiothoracic surgery team is Consulted. Patient heparin drip was stopped and started on nitroglycerin drip. Lasix, Cozaar and D5W were stopped and patient was started on normal saline at 75 mL/h. May consider to stop normal saline tomorrow 07/13/2020 This is a [id number] years old female presents because of non-STEMI and ischemic cardiomyopathy with ejection fraction 30-35%. Underwent cardiac cath showing severe triple vessel coronary artery disease and isn't currently been evaluated by cardiothoracic surgery for bypass procedure. Also echocardiogram showing moderate mitral regurgitation and moderate pulmonary hypertension Also patient is followed closely by nephrology to follow her chronic kidney disease stage 3-4, currently her creatinine stable at 1.9, Cozaar was held. Hepatitis panel negative. Patient was sitting of double chair with no chest pain and no other symptoms. And she is hemodynamically stable 07/14/2020 Patient is currently sitting in chair comfortably. No complaints of chest pain shortness of breath. No headache or dizziness or lightheadedness. No fever no chills. No nausea vomiting or abdominal pain or diarrhea. Tolerating oral diet. Patient is being continued on aspirin statins and Imdur and metoprolol. 2D echocardiogram flexion fraction 30 to 35% with severe hypokinesis of the anterior apical, anteroseptal wall. Losartan is on hold due to elevated creatinine level. Cardiology and CT surgery is on board. Evaluating for revascularization surgery. Laboratory data showed sodium 136 potassium 4.1 BUN 38 and creatinine 1.89 07/15/2020 Patient is currently resting in the chair comfortably. No complaints of chest pain or shortness of breath. EKG showed sinus rhythm with persistent anterior notions in the precordial leads. Laboratory data showed WBC 6.6 hemoglobin 9.8 platelets 180, sodium 136 potassium 4.1 BUN 36 and creatinine 1.87 and magnesium 1.8 Lower extremity arterial duplex. The left side is normal. Possibly mild infra popliteal disease on the right. Perfusion pressures appear adequate. Vein mapping was done today. Denied any nausea vomiting abdominal pain or diarrhea. 07/16/2020 Patient is currently sitting in a chair. No complaints of chest pain or shortness of breath. Titrate down oxygen to room air now. patient had SLOANE done today. Facial CT showed paranasal sinuses are grossly clear. Multiple cavitary petra lings in the bilateral premolar and molar teeth causing streak artifact limiting evaluation at these levels. Patient has been afebrile. No nausea vomiting or abdominal pain or diarrhea. Follow-up CBC and BMP tomorrow. Cardiology, CT surgery is on board. 07/17/2020 Patient is currently sitting in a chair comfortably no complaints of chest pain or shortness breath. 97% on room air. CT face showed multiple cavitary fillings in the bilateral premolar, molar teeth causing streak artifact limiting evaluation. Patient is scheduled for dental evaluation today. No fever no chills. No cough or sputum production. Patient is being treated insulin sliding scale. Also Actos and linagliptin and Amaryl. Lab data showed WBC 6.1 hemoglobin 10.5 and platelets 237, sodium 138 potassium 3.8 bicarb is 32 BUN 34 and creatinine 1.78, calcium 9.0 07/18/2020. Patient is currently sitting in the chair comfortably. Patient is scheduled for cardiac revascularization surgery for 1120. No complaints of ches t pain or shortness breath. Patient was started Levemir 10 units at bedtime and insulin sliding scale. Continue to hold oral hypoglycemics. Patient has been continued Lasix 40 mg IV daily. Nephrology and pulmonary is on board. 07/19/2020 Patient is currently sitting in a chair comfortably. No complaints of chest pain or shortness of this. No headache or dizziness or lightheadedness. No nausea vomiting abdominal pain or diarrhea. Patient is being continued Lasix IV 40 mg daily. Blood sugar is better controlled today. Continue with Levemir and insulin sliding scale and adjust dose as needed. Patient has been afebrile. Scheduled for cardiac revascularization surgery on 06/21/2020. Nephrology is on board. Current medications reviewed. Objective - Vital Signs Vital signs: Vital Signs Temp 98.4 F 07/19/20 20:00 Pulse 62 07/19/20 20:00 Resp 16 07/19/20 20:00 BP 127/65 07/19/20 20:00 Pulse Ox 95 07/19/20 20:00 Intake & Output 07/19/20 07/19/20 07/20/20 06:59 18:59 06:59 Intake Total 458 Output Total 400 1100 Balance -400 -642 Weight 86.5 kg Intake: Oral 458 Output: Urine 400 1100 Other: Voiding Method Toilet Toilet Toilet # Voids 1 - Exam GENERAL: The patient is alert and oriented x3, not in any acute distress. Well developed, well nourished. HEENT: Pupils are round and equally reacting to light. EOMI. No scleral icterus. No conjunctival pallor. Normocephalic, atraumatic. No pharyngeal erythema. No thyromegaly. CARDIOVASCULAR: S1 and S2 present. No murmurs, rubs, or gallops. PULMONARY: Chest is clear to auscultation, no wheezing or crackles. ABDOMEN: Soft, nontender, nondistended, normoactive bowel sounds. No palpable organomegaly. MUSCULOSKELETAL: No joint swelling or deformity. EXTREMITIES: No cyanosis, clubbing, or pedal edema. NEUROLOGICAL: Gross neurological examination did not reveal any focal deficits. SKIN: No rashes. no petechiae. - Labs CBC & Chem 7: 07/18/20 05:51 07/18/20 05:51 Labs: Abnormal Lab Results - Last 24 Hours (Table) 07/19/20 07/19/20 07/19/20 Range/Units 11:45 16:53 19:10 POC Glucose (mg/dL) 187 H 180 H 203 H (75-99) mg/dL Assessment and Plan Assessment: Multivessel coronary artery disease acute systolic CHF exacerbation, ejection fraction 30-35% and moderate MR Acute hypoxic respiratory failure secondary to both non-stemi with chest pain and elevated troponin. Diabetes mellitus 2 Hypertension Hyperlipidemia stage IV chronic kidney disease Ongoing nicotine addiction DVT prophylaxis Plan: this is a pleasant 70 years old female who presents with CHF and non-STEMI. Patient is status post cardiac catheterization multivessel coronary disease.Patient is being continued on lasix IV , aspirin, statins, Imdur and metoprolol. Losartan is on hold due to cKD CT surgery and cardiology is on board. Evaluating for cardiac revascularization surgery. Nephrology is following due to chronic kidney disease. will hold oral hypoglycemics and started on insulin regimen Labs and medication were reviewed. Monitor lytes and vitals. DVT and GI prophylaxis. Further recommendations as per clinical course of the patient DVT prophylaxis : Heparin GI Prophylaxis: Pepcid PT/OT: Pending Prognosis is guarded Time with Patient: Greater than 30
[2020-07-20 06:22] LABS: Glucose,Whole Blood 113 mg/dL (75-99)
[2020-07-20] MEDS ORDERED: MD COMMUNICATION TO PHARMACY 1 EACH MISC PO ONE (07:28)
--- NOTE | 2020-07-20 07:45 | P.PN ---
Subjective Progress Note Date: 07/20/20 Principal diagnosis: Symptomatic multivessel coronary artery disease, non-STEMI this admission, acute on chronic systolic congestive heart failure, EF 30-35%, moderate mitral valve regurgitation. Previous medical history of chronic kidney disease stage IV, diabetes mellitus type 2, hypertension, hyperlipidemia, lifetime nonsmoker with severe obstruction and preoperative FEV1 41% of predicted, and family history of early onset coronary artery disease with her father having a myocardial infarction in his mid 40s The patient was seen and examined on the cardiac stepdown unit this morning, sitting up in a recliner in no acute distress. She denies any chest pain, shortness of breath, appears comfortable at rest on room air. Dental clearance obtained. She has been ambulatory without difficulty. Anticipate surgery tomorrow. Patient has no new questions at this time. Objective - Vital Signs Vital signs: Vital Signs Temp 98.2 F 07/20/20 04:00 Pulse 73 07/20/20 04:00 Resp 18 07/20/20 04:00 BP 119/57 07/20/20 04:00 Pulse Ox 94 L 07/20/20 04:00 Intake & Output 07/19/20 07/20/20 07/20/20 18:59 06:59 18:59 Intake Total 458 Output Total 1100 Balance -642 Intake: Oral 458 Output: Urine 1100 Other: Voiding Method Toilet Toilet - Exam CONSTITUTIONAL: Appears comfortable, cooperative, no acute distress RESPIRATORY: Lungs sounds diminished bilaterally. Respirations even, nonlabored. Currently on room air with oxygen saturation 94%. Able to achieve 1500 mL on incentive spirometry. Strong cough. CARDIOVASCULAR: S1, S2 present. Regular rate and rhythm, sinus rhythm on telem etry. Palpable peripheral pulses bilaterally. Bilateral lower extremity edema present. No calf pain or tenderness noted. GASTROINTESTINAL: Abdomen soft, nontender, nondistended. Active bowel sounds present 4 quadrants. Tolerating diet. GENITOURINARY: Continues to void INTEGUMENTARY: Skin is warm and dry with evidence of good perfusion. NEUROLOGIC: Cranial nerves II through XII intact MUSKULOSKELETAL: Able to move all extremities, strength equal bilaterally, gait normal PSYCHIATRIC: Alert and oriented to person place and time, appropriate affect, intact judgment and insight - Allied health notes Allied health notes reviewed: nursing - Labs CBC & Chem 7: 07/18/20 05:51 07/18/20 05:51 Labs: Abnormal Lab Results - Last 24 Hours (Table) 07/19/20 07/19/20 07/19/20 Range/Units 11:45 16:53 19:10 POC Glucose (mg/dL) 187 H 180 H 203 H (75-99) mg/dL 07/20/20 Range/Units 06:18 POC Glucose (mg/dL) 113 H (75-99) mg/dL - Imaging and Cardiology Chest x-ray: pending Assessment and Plan Assessment: 1. Symptomatic multivessel coronary artery disease, non-STEMI this admission 2. Acute on chronic systolic congestive heart failure, EF 30-35% 3. Moderate mitral valve regurgitation on SLOANE 4. Dyspnea on admission, secondary to acute heart failure, proBNP on admission 14,500 5. Chronic kidney disease stage IV, baseline creatinine around 1.9 per nephrology 6. Diabetes mellitus type 2, hemoglobin A1c is 8.7% 7. Hypertension 8. Hyperlipidemia, treated, cholesterol 157, LDL 75 9. Lifetime nonsmoker 10. Severe obstruction, preoperative FEV1 41% of predicted with moderate increased operative risk per pulmonology 11. Family history of early onset coronary artery disease with her father having a myocardial infarction in his mid 40s Plan: 1. Continue to optimize medical management with aspirin, statin, and beta charity. 2. Continue lasix 40 mg daily per nephrology 3. Increase activity, ambulate as tolerated 4. Medical management and diabetes management per primary care service. 5. Our plan is for CABG with mitral valve repair, left internal mammary artery and endoscopic vein harvest, exclusion of the left atrial appendage Monday07/21/[address] Pickens 6. Continue preoperative teaching 7. Pulmonology states moderate increased operative risk 8. More recommendations to follow Time with Patient: Greater than 30
[2020-07-20 08:14] LABS: Basophils # (A) 0.1 k/uL (0-0.2); Basophils % (A) 1 %; Eosinophils # (A) 0.2 k/uL (0-0.7); Eosinophils % (A) 3 %; HCT 32.8 % (34.0-46.0); HGB 10.7 gm/dL (11.4-16.0); Lymphocytes # (A) 1.3 k/uL (1.0-4.8); Lymphocytes % (A) 20 %; MCH 30.9 pg (25.0-35.0); MCHC 32.7 g/dL (31.0-37.0); MCV 94.5 fL (80.0-100.0); Mean Platelet Volume 8.1; Monocytes # (A) 0.4 k/uL (0-1.0); Monocytes % (A) 7 %; Neutrophils # (A) 4.6 k/uL (1.3-7.7); Neutrophils % (A) 69 %; Platelet Count 235 k/uL (150-450); RBC 3.46 m/uL (3.80-5.40); RDW 13.5 % (11.5-15.5); WBC 6.6 k/uL (3.8-10.6)
[2020-07-20 08:17] LABS: INR 1.1 (<1.2); Partial Thromboplastin Time 26.5 sec (22.0-30.0); Prothrombin Time 11.4 sec (9.0-12.0)
--- NOTE | 2020-07-20 08:40 | XR ---
EXAMINATION TYPE: XR chest 2V DATE OF EXAM: 07/20/2020 COMPARISON: Chest x-ray 07/17/2020 HISTORY: Preop coronary artery bypass graft TECHNIQUE: Frontal and lateral views of the chest are obtained. FINDINGS: There is some improvement in aeration at the lung bases. Cardiac mediastinal silhouette sh ows a similar appearance. No evident pneumothorax. There are overlying leads. IMPRESSION: Improvement in aeration, difficult to exclude small effusions, atelectasis, pneumonia fe lt to be less likely
[2020-07-20 08:44] LABS: Albumin 3.8 g/dL (3.5-5.0); Calcium 9.4 mg/dL (8.4-10.2); Magnesium 1.6 mg/dL (1.6-2.3); Total Bilirubin 0.7 mg/dL (0.2-1.3); Total Protein 6.5 g/dL (6.3-8.2)
[2020-07-20] MEDS: METOPROLOL TARTRATE 50 MG TAB PO SCH ×2 (09:01→21:22)
[2020-07-20] MEDS: ISOSORBIDE MONONITRATE ER 30 MG TAB.ER.24H PO SCH (09:01)
[2020-07-20] MEDS: FUROSEMIDE 10 MG/ML 4 ML VIAL IV SCH (09:01)
[2020-07-20] MEDS: LINAGLIPTIN 5 MG TABLET PO SCH (09:01)
[2020-07-20] MEDS: allopurinoL 100 MG TAB PO SCH (09:01)
[2020-07-20] MEDS: FAMOTIDINE 20 MG TAB PO SCH (09:01)
[2020-07-20] MEDS: ASPIRIN 81 MG PO SCH (09:01)
[2020-07-20] MEDS: MUPIROCIN 2% OINT 22 GM TUBE NASAL SCH ×2 (09:02→21:21)
[2020-07-20] MEDS: INSULIN ASPART (NovoLOG) 100 UNIT/ML VIAL SQ SCH ×4 (09:02→21:21)
--- NOTE | 2020-07-20 09:54 | P.PN ---
Subjective This is a pleasant 70-year-old female past medical history significant for diabetes mellitus, hypertension, dyslipidemia and chronic kidney disease. She does not follow with a tie in hand on a regular basis. She presented to the hospital with symptoms of unstable angina and was ruled in for non-ST elevated myocardial infarction. Echocardiogram revealed severe hypokinesia of the anteroapical wall and apical segments with ejection fraction of 30%, repeat yesterday reveals EF of 30-35%. She underwent cardiac catheterization revealing triple-vessel coronary artery disease with critical lesion in the mid LAD, significant disease in the mid RCA and moderate disease in the circumflex artery. She has been seen in evaluation by CT surgery. She is seen and examined sitting up in the recliner in no acute distress. She continues to have shortness of breath with exertion and is comfortable at rest. She has had no symptoms of chest discomfort. Repeat EKG this morning reveals sinus mechanism with ongoing persistent T-wave inversions in the precordial leads. No significant changes noted. Blood pressure 130/86 heart rate 70 afebrile maintaining oxygen saturation on nasal cannula. Laboratory data reviewed, WBC 6.6, hemoglobin 9.8, platelets 180, sodium 136, potassium 4.1, creatinine 1.87 and magnesium 1.8. Currently maintained on aspirin 81 mg daily, atorvastatin 80 mg daily, Imdur 30 mg daily and metoprolol 50 mg twice a day. 07/17/2020 Pt is seen and examined sitting up in the recliner in no acute distress. She de nies chest pain, shortness of breath or palpitations. She is scheduled to undergo bypass grafting and mitral valve repair tomorrow with Dr. Pickens. Blood pressure 119/57 heart rate 73 afebrile and maintaining oxygen saturation on room air. GENERAL: Well-appearing, well-nourished and in no acute distress. NECK: Supple without JVD or thyromegaly. LUNGS: Breath sounds clear to auscultation bilaterally. Respiration equal and unlabored. No wheezes, rales or rhonchi. HEART: Regular rate and rhythm with systolic ejection murmur at the left sternal border, no rubs or gallops. S1 and S2 heard. EXTREMITIES: Normal range of motion, ongoing bilateral lower extremity 1+ pitting edema. No clubbing or cyanosis. Peripheral pulses intact. ASSESSMENT Non-ST elevated myocardial infarction Acute systolic heart failure Mitral regurgitation, moderate Unstable angina Multivessel coronary artery disease Chronic kidney disease, creatinine at baseline Hypertension Dyslipidemia Diabetes mellitus Chronic nicotine dependence PLAN Continue current medical regimen. Encourage incentive spirometer use while awake. Nurse Practitioner note has been reviewed, I agree with a documented findings and plan of care. Patient was seen and examined. Objective - Vital Signs Vital signs: Vital Signs Temp 98.2 F 07/20/20 04:00 Pulse 73 07/20/20 04:00 Resp 18 07/20/20 04:00 BP 119/57 07/20/20 04:00 Pulse Ox 94 L 07/20/20 04:00 Intake & Output 07/19/20 07/20/20 07/20/20 18:59 06:59 18:59 Intake Total 458 240 Output Total 1100 Balance -642 240 Intake: Oral 458 240 Output: Urine 1100 Other: Voiding Method Toilet Toilet - Labs CBC & Chem 7: 07/20/20 07:41 07/20/20 07:41 Labs: Abnormal Lab Results - Last 24 Hours (Table) 07/19/20 07/19/20 07/19/20 Range/Units 11:45 16:53 19:10 RBC (3.80-5.40) m/uL Hgb (11.4-16.0) gm/dL Hct (34.0-46.0) % Carbon Dioxide (22-30) mmol/L BUN (7-17) mg/dL Creatinine (0.52-1.04) mg/dL Glucose (74-99) mg/dL POC Glucose (mg/dL) 187 H 180 H 203 H (75-99) mg/dL Crossmatch 07/20/20 07/20/20 07/20/20 Range/Units 06:18 07:41 07:41 RBC 3.46 L (3.80-5.40) m/uL Hgb 10.7 L (11.4-16.0) gm/dL Hct 32.8 L (34.0-46.0) % Carbon Dioxide (22-30) mmol/L BUN (7-17) mg/dL Creatinine (0.52-1.04) mg/dL Glucose (74-99) mg/dL POC Glucose (mg/dL) 113 H (75-99) mg/dL Crossmatch See Detail 07/20/20 Range/Units 07:41 RBC (3.80-5.40) m/uL Hgb (11.4-16.0) gm/dL Hct (34.0-46.0) % Carbon Dioxide 32 H (22-30) mmol/L BUN 26 H (7-17) mg/dL Creatinine 1.87 H (0.52-1.04) mg/dL Glucose 151 H (74-99) mg/dL POC Glucose (mg/dL) (75-99) mg/dL Crossmatch
--- NOTE | 2020-07-20 11:06 | P.TEE ---
Indications for Procedure(s): Assessment mitral regurgitation Date of Procedure: 07/16/20 Preoperative Diagnosis: Moderate mitral regurgitation, moderate to severe LV dysfunction Postoperative Diagnosis: Moderate mitral regurgitation Description of Procedure(s): INDICATION: Assessment of mitral regurgitation CONSENT:. Informed consent was obtained verbally from the patient PROCEDURE:. Patient was brought to the lab in a fasting state. She was prepped and draped in the usual fashion. The throat was sprayed with Cetacaine. Patient was given Versed 1 mg and fentanyl 25 g for sedation. A lubricated Omni probe was introduced into the oropharynx and were advanced into the esophagus. Multiple views were obtained from stomach and esophagus. Patient tolerated the procedure well. Color, pulsed and continuous flow Doppler studies were done. Saline contrast bubble injection was also done FINDINGS:. The aortic valve showed mild thickening without any significant stenosis. The mitral valve showed central regurgitation. It appeared to be m oderate with a Pisa value of 0.6. There is no reversal of flow in pulmonary veins. The left atrial appendage is free of any clot. The interatrial septum appeared to be intact without any shunt. Saline contrast bubbles injection wasn't are suggestive of any PFO. Left ventricle function appears to be mild to moderately impaired. No significant plaque in the aorta IMPRESSION: 1. Moderate mitral regurgitation, which is central. #2. No evidence of any mitral valve prolapse or ruptured chordae tendineae #3. Aortic valve function appear to be normal. #4. No clot in the left atrial appendage. #5. No PFO #6. Mental moderate impaired LV function PLAN:. Proceed with CABG probably with mitral valve repair with mitral valve ring.
--- NOTE | 2020-07-20 11:28 | P.PN ---
Subjective Patient is seen in follow-up for chronic kidney disease. Patient has chronic kidney disease stage IV with baseline creatinine in the range of 1.7-2. GFR at baseline. Good urine output. No chest pain. CABG scheduled for Monday. No changes overnight. Vital signs are stable. General: The patient appeared well nourished and normally developed. HEENT: Head exam is unremarkable. Neck is without jugular venous distension. LUNGS: Breath sounds decreased. HEART: Rate and Rhythm are regular. ABDOMEN: Soft, no distention. EXTREMITITES: Trace edema. Objective - Vital Signs Vital signs: Vital Signs Temp 98.2 F 07/20/20 04:00 Pulse 73 07/20/20 04:00 Resp 18 07/20/20 04:00 BP 119/57 07/20/20 04:00 Pulse Ox 94 L 07/20/20 04:00 Intake & Output 07/19/20 07/20/20 07/20/20 18:59 06:59 18:59 Intake Total 458 240 Output Total 1100 Balance -642 240 Intake: Oral 458 240 Output: Urine 1100 Other: Voiding Method Toilet Toilet - Labs CBC & Chem 7: 07/20/20 07:41 07/20/20 07:41 Labs: Abnormal Lab Results - Last 24 Hours (Table) 07/19/20 07/19/20 07/19/20 Range/Units 11:45 16:53 19:10 RBC (3.80-5.40) m/uL Hgb (11.4-16.0) gm/dL Hct (34.0-46.0) % Carbon Dioxide (22-30) mmol/L BUN (7-17) mg/dL Creatinine (0.52-1.04) mg/dL Glucose (74-99) mg/dL POC Glucose (mg/dL) 187 H 180 H 203 H (75-99) mg/dL Crossmatch 07/20/20 07/20/20 07/20/20 Range/Units 06:18 07:41 07:41 RBC 3.46 L (3.80-5.40) m/uL Hgb 10.7 L (11.4-16.0) gm/dL Hct 32.8 L (34.0-46.0) % Carbon Dioxide (22-30) mmol/L BUN (7-17) mg/dL Creatinine (0.52-1.04) mg/dL Glucose (74-99) mg/dL POC Glucose (mg/dL) 113 H (75-99) mg/dL Crossmatch See Detail 07/20/20 Range/Units 07:41 RBC (3.80-5.40) m/uL Hgb (11.4-16.0) gm/dL Hct (34.0-46.0) % Carbon Dioxide 32 H (22-30) mmol/L BUN 26 H (7-17) mg/dL Creatinine 1.87 H (0.52-1.04) mg/dL Glucose 151 H (74-99) mg/dL POC Glucose (mg/dL) (75-99) mg/dL Crossmatch Assessment and Plan Plan: Assessment: 1. 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 Baseline creatinine 1.5-2. GFR at baseline. 2. Coronary artery disease status post cardiac catheterization on 07/12/2020. CABG scheduled for Monday. 3. Acute on chronic systolic CHF with ejection fraction of 30-35% with moderate mitral regurgitation and pulmonary hypertension. 4. Metabolic acidosis secondary to chronic kidney disease. Resolved. 5. Diabetes mellitus. 6. Volume overload. Improved with diuresis. 7. Acute hypoxic respiratory failure. Currently on room air. Plan: Maintain IV Lasix 40 mg daily. Avoid nephrotoxins. Continue to monitor renal function and urine output.
[2020-07-20 12:09] LABS: Glucose,Whole Blood 191 mg/dL (75-99)
[2020-07-20] MEDS: MAGNESIUM OXIDE 400 MG TAB PO SCH ×2 (12:42→21:22)
[2020-07-20 16:57] LABS: Glucose,Whole Blood 193 mg/dL (75-99)
--- NOTE | 2020-07-20 17:27 | P.PN ---
Subjective Progress Note Date: 07/20/20 Principal diagnosis: Symptomatic multivessel coronary artery disease and non-ST elevation myocardial infarction 70-year-old female patient who is being seen for preop pulmonary clearance regarding coronary artery bypass surgery. The patient has multivessel coronary artery disease and she is post family. Morbid conditions include hypertension, hyperlipidemia, diabetes mellitus type 2 and chronic kidney disease stage IIIB/4. She presented to the hospital because of worsening shortness of breath and chest pain. She was ruled in for non-STEMI. Her troponins were elevated and it peaked at 12.7. Pro-calcitonin level was 0.23. Lactic acid level was 1.4. Chest x-ray showed small bilateral pleural effusions. There was also evidence of pulmonary vascular congestion. Cardiac catheterization was performed and please refer to the results as the patient was found to have triple-vessel disease with critical stenosis involving the LAD 60% in the circumflex, 70-80% and RCA. Patient has already received COVID-19 vaccination. Patient has no complaints and currently she is free of any chest pain. Echocardiogram was done and the patient has an ejection fraction of 30-35% and moderate mitral regurgitation. She is currently on room air oxygen and her pulse ox is around 98%. 07/18/2020, condition is stable. No new complaints for now. The patient is hemodynamically stable and the patient is awaiting cardiac surgery and she is tentatively scheduled to undergo the surgery on 07/21/2020. No new complaints otherwise for now. She is being treated with diuretics and she remains on Lasix 40 mg IV every 24 hours. She is on room air oxygen. She is free of any chest pain. She is on Levemir insulin 10 units along with a Silastic coverage. She is using incentive spirometer. Dental clearance was also given. Reevaluated today on 07/20/2020, patient is doing well, denies any shortness of breath, no cough no wheezing no fever no chills, remains on Lasix 40 mg IV push every 24 hours, remains on room air, and she is already cleared for surgery/CABG by Dr. Vargas. Chest x-ray was reviewed and no evidence of active disease. Objective - Vital Signs Vital signs: Vital Signs Temp 97.1 F L 07/20/20 15:30 Pulse 57 L 07/20/20 15:30 Resp 18 05/10/21 15:30 BP 140/62 07/20/20 15:30 Pulse Ox 97 07/20/20 15:30 Intake & Output 07/19/20 07/20/20 07/20/20 18:59 06:59 18:59 Intake Total 458 480 Output Total 1100 Balance -642 480 Intake: Oral 458 480 Output: Urine 1100 Other: Voiding Method Toilet Toilet Toilet # Voids 1 - Exam Physical Exam revealed a 89-year-old female in no distress. Head: Atraumatic, normocephalic. HEENT:[Neck is supple.] [No neck masses.] [No thyromegaly.] [No JVD.] Chest: [Clear throughout, no crackles, no rhonchi, no wheezes.] Cardiac Exam: [Normal S1 and S2, no S3 gallop, no murmur.] Abdomen: [Soft, nontender, no megaly, no rebound, no guarding, normal bowel sounds.] Extremities: [No clubbing, no edema, no cyanosis.] Neurological Exam: [No focal neurologic deficit.] Alert oriented 3 no focal deficits. Psychiatric: Normal mood, affect and normal mental status examination. Skin: No rashes. - Labs CBC & Chem 7: 07/20/20 07:41 07/20/20 07:41 Labs: Abnormal Lab Results - Last 24 Hours (Table) 07/19/20 07/20/20 07/20/20 Range/Units 19:10 06:18 07:41 RBC (3.80-5.40) m/uL Hgb (11.4-16.0) gm/dL Hct (34.0-46.0) % Carbon Dioxide (22-30) mmol/L BUN (7-17) mg/dL Creatinine (0.52-1.04) mg/dL Glucose (74-99) mg/dL POC Glucose (mg/dL) 203 H 113 H (75-99) mg/dL Crossmatch See Detail 07/20/20 07/20/20 07/20/20 Range/Units 07:41 07:41 11:59 RBC 3.46 L (3.80-5.40) m/uL Hgb 10.7 L (11.4-16.0) gm/dL Hct 32.8 L (34.0-46.0) % Carbon Dioxide 32 H (22-30) mmol/L BUN 26 H (7-17) mg/dL Creatinine 1.87 H (0.52-1.04) mg/dL Glucose 151 H (74-99) mg/dL POC Glucose (mg/dL) 191 H (75-99) mg/dL Crossmatch 07/20/20 Range/Units 16:45 RBC (3.80-5.40) m/uL Hgb (11.4-16.0) gm/dL Hct (34.0-46.0) % Carbon Dioxide (22-30) mmol/L BUN (7-17) mg/dL Creatinine (0.52-1.04) mg/dL Glucose (74-99) mg/dL POC Glucose (mg/dL) 193 H (75-99) mg/dL Crossmatch Assessment and Plan Assessment: Impression: Symptomatic multivessel coronary artery disease and acute non-ST elevation myocardial infarction patient is scheduled for CABG and possible mitral valve repair tomorrow. Severe LV dysfunction/systolic dysfunction with ejection fraction of 30-35%. Moderate severe mitral regurgitation. Chronic kidney disease stage IIIB. Type 2 diabetes. Benign essential hypertension. Dyslipidemia. Life time nonsmoker. Recommendation: Continue present supportive care measures Chest x-ray was reviewed Spirometry was reviewed FEV1 was 41% however the patient has mostly restrictive physiology. FEV1/FVC is 86. Proceed with surgery as scheduled tomorrow. We'll follow postoperatively Time with Patient: Less than 30
[2020-07-20 20:31] LABS: Glucose,Whole Blood 236 mg/dL (75-99)
[2020-07-20] MEDS: INSULIN DETEMIR (LEVEMIR) 100 UNIT/ML SYR SQ SCH (21:21)
[2020-07-20] MEDS: ATORVASTATIN 80 MG TAB PO SCH (21:22)
[2020-07-21] MEDS ORDERED: ELECTROLYTE-A SOLUTION 1,000 ML with POTASSIUM CHLORIDE 100 MEQ, MAGNESIUM SULFATE 16 M... IV SCH ×5 (05:00)
[2020-07-21] MEDS ORDERED: ASPIRIN 325 MG TAB PO ONE (05:00)
[2020-07-21] MEDS ORDERED: NITROGLYCERIN-D5W PMX 25 MG/250 ML BTL IV ONE (05:00)
[2020-07-21] MEDS ORDERED: HEPARIN SODIUM 1,000 UN/ML (10ML VL) IV ONE (05:00)
[2020-07-21] MEDS ORDERED: METOPROLOL TARTRATE 12.5 MG TAB PO ONE (05:00)
[2020-07-21] MEDS ORDERED: PHENYLEPHRINE 10 MG/ML VIAL IV ONE (05:00)
[2020-07-21] MEDS ORDERED: PAPAVERINE 360 MG in SODIUM CHLORIDE 0.9% 90 ML IV ONE (05:00)
[2020-07-21] MEDS ORDERED: CLEVIDIPINE BUTYRATE 25 MG in EMPTY BAG 1 BAG IV SCH ×2 (05:00→14:27)
[2020-07-21] MEDS ORDERED: MAGNESIUM SULFATE SYG 4.06 MEQ/ML SYRINGE IV ONE (05:00)
[2020-07-21] MEDS ORDERED: NITROGLYCERIN-D5W PMX 50 MG in DEXTROSE/WATER 1 250ML.BAG IV SCH ×2 (05:00→14:27)
[2020-07-21] MEDS ORDERED: ceFAZolin 1,000 MG in SODIUM CHLORIDE 0.9% IRRIGATIO 1,000 ML IRRIGATION ONE (05:00)
[2020-07-21] MEDS ORDERED: NOREPINEPHRINE 4 MG in SODIUM CHLORIDE 0.9% 250 ML IV SCH (05:00)
[2020-07-21] MEDS ORDERED: ALBUMIN HUMAN 25% 50 ML in EMPTY BAG 1 BAG IVPB ONE (05:00)
[2020-07-21] MEDS ORDERED: ELECTROLYTE-A SOLUTION 1,000 ML with POTASSIUM CHLORIDE 40 MEQ, MAGNESIUM SULFATE 16 ME... IV SCH ×5 (05:00)
[2020-07-21] MEDS ORDERED: HEPARIN SODIUM,PORCINE 5,000 UNIT in SODIUM CHLORIDE 0.9% 500 ML 500 ML IV ONE (05:00)
[2020-07-21] MEDS ORDERED: TRANEXAMIC ACID 2,000 MG in SODIUM CHLORIDE 0.9% 80 ML IV ONE ×4 (05:00)
[2020-07-21] MEDS ORDERED: MANNITOL 25% 12.5 GM/50 ML VIAL IV ONE ×2 (05:00)
[2020-07-21] MEDS ORDERED: ALBUMIN HUMAN 5% 500 ML in EMPTY BAG 1 BAG IVPB ONE ×6 (05:00)
[2020-07-21] MEDS ORDERED: PHENYLEPHRINE 40 MG in SODIUM CHLORIDE 0.9% 250 ML IV ONE (05:00)
[2020-07-21] MEDS ORDERED: INSULIN REGULAR 100 UNIT in SODIUM CHLORIDE 0.9% 100 ML IV SCH (05:00)
[2020-07-21] MEDS ORDERED: LACTATED RINGERS 1,000 ML IV SCH ×2 (05:00→13:57)
[2020-07-21] MEDS ORDERED: PROTAMINE SULFATE 10 MG/ML 25 ML VIAL IV ONE ×2 (05:00→07:40)
[2020-07-21] MEDS ORDERED: CALCIUM CHLORIDE 100 MG/ML 10 ML SYRINGE IVP ONE (05:00)
[2020-07-21] MEDS ORDERED: PROTAMINE SULFATE 250 MG in EMPTY BAG 1 BAG IV ONE (05:00)
[2020-07-21] MEDS ORDERED: SODIUM BICARB 8.4% 50 ML SYR (1 MEQ/ML) IV ONE (05:00)
[2020-07-21] MEDS ORDERED: ATORVASTATIN 10 MG TAB PO ONE (05:00)
[2020-07-21] MEDS ORDERED: CHLORHEXIDINE GLUCONATE 15 ML CUP MUCOUS MEM ONE (05:00)
[2020-07-21] MEDS ORDERED: LACTATED RINGERS 1,000 ML IV ONE (06:04)
[2020-07-21 06:15] LABS: Glucose,Whole Blood 124 mg/dL (75-99)
[2020-07-21] MEDS ORDERED: fentaNYL (PF) 50 MCG/ML 50 ML VIAL ONE (07:40)
[2020-07-21] MEDS ORDERED: TRANEXAMIC ACID 1,000 MG/10 ML VIAL ONE (07:40)
[2020-07-21] MEDS ORDERED: GLYCOPYRROLATE 0.2 MG/ML 2 ML VIAL ONE (07:40)
[2020-07-21] MEDS ORDERED: HEPARIN SODIUM,PORCINE 10,000 UNIT/ML 1 ML VIAL ONE (07:40)
[2020-07-21] MEDS ORDERED: SODIUM CHLORIDE 0.9% IRRIG 1,000 ML BTL IRRIGATION ONE (07:40)
[2020-07-21] MEDS ORDERED: INSULIN REGULAR 100 UNIT/ML VIAL ONE (07:40)
[2020-07-21] MEDS ORDERED: ceFAZolin 1,000 MG VIAL ONE (07:40)
[2020-07-21] MEDS ORDERED: ELECTROLYTE-R (PH 7.4) 1,000 ML IV.SOLN IV ONE (07:40)
[2020-07-21] MEDS ORDERED: SODIUM CHLORIDE 0.9% 100 ML BAG ONE (07:40)
[2020-07-21] MEDS ORDERED: MAGNESIUM SULFATE 4 MEQ/ML 10ML VIAL ONE (07:40)
[2020-07-21] MEDS ORDERED: LIDOCAINE 2% SYG (PF) 100 MG/5 ML ONE (07:40)
[2020-07-21] MEDS ORDERED: PROPOFOL 10 MG/ML 20 ML VIAL IV ONE (07:40)
[2020-07-21] MEDS ORDERED: MIDAZOLAM 2 MG/2 ML VIAL ONE (07:40)
[2020-07-21] MEDS ORDERED: SODIUM CHLORIDE 0.9% 250 ML BAG ONE (07:40)
[2020-07-21] MEDS ORDERED: NOREPINEPHRINE 1 MG/ML 4 ML VIAL IV ONE (07:40)
[2020-07-21] MEDS ORDERED: VECURONIUM 10 MG VIAL IV ONE (07:40)
[2020-07-21] MEDS ORDERED: NITROGLYCERIN-D5W PMX 50 MG/250 ML BOTTLE IV ONE (07:40)
[2020-07-21] MEDS ORDERED: fentaNYL (PF) 50 MCG/ML 2 ML AMP ONE (07:40)
[2020-07-21] MEDS ORDERED: ALBUMIN HUMAN 5% (25gm) 500 ML VIAL IVPB ONE (07:40)
[2020-07-21] MEDS ORDERED: AMIODARONE 50 MG/ML 3 ML VIAL IV ONE (07:40)
[2020-07-21 08:44] LABS: ABG Base Excess 4.8 mmol/L; ABG HCO3 28 mmol/L (21-25); ABG Hematocrit 29 % (34.0-46.0); ABG Ionized Calcium 4.6 mg/dL (4.5-5.3); ABG PCO2 37 mmHg (35-45); ABG PH 7.49 (7.35-7.45); ABG PO2 388 mmHg (83-108); ABG Potassium Whole Blood 3.5 mmol/L (3.4-4.5); ABG TCO2 30 mmol/L (19-24)
[2020-07-21 10:13] LABS: ABG Glucose Whole Blood 155 mg/dL (75-99); ABG HCO3 27 mmol/L (21-25); ABG Hematocrit 29 % (34.0-46.0); ABG Ionized Calcium 4.5 mg/dL (4.5-5.3); ABG Lactic Acid Whole Blood 0.9 mmol/L (0.5-1.6); ABG Oxygen Saturation 99.8 % (94-97); ABG PCO2 38 mmHg (35-45); ABG PH 7.46 (7.35-7.45); ABG PO2 155 mmHg (83-108); ABG Potassium Whole Blood 3.7 mmol/L (3.4-4.5); ABG Sodium Whole Blood 138 mmol/L (135-146); ABG TCO2 28 mmol/L (19-24)
[2020-07-21 11:08] LABS: ABG Glucose Whole Blood 162 mg/dL (75-99); ABG HCO3 26 mmol/L (21-25); ABG Ionized Calcium 4.1 mg/dL (4.5-5.3); ABG Lactic Acid Whole Blood 0.7 mmol/L (0.5-1.6); ABG PCO2 40 mmHg (35-45); ABG PH 7.42 (7.35-7.45); ABG Potassium Whole Blood 3.5 mmol/L (3.4-4.5); ABG Sodium Whole Blood 135 mmol/L (135-146); ABG TCO2 27 mmol/L (19-24)
[2020-07-21 11:41] LABS: ABG Base Excess 2.3 mmol/L; ABG Glucose Whole Blood 170 mg/dL (75-99); ABG HCO3 26 mmol/L (21-25); ABG Ionized Calcium 4.1 mg/dL (4.5-5.3); ABG Lactic Acid Whole Blood 0.8 mmol/L (0.5-1.6); ABG PCO2 37 mmHg (35-45); ABG PH 7.46 (7.35-7.45); ABG PO2 344 mmHg (83-108); ABG Potassium Whole Blood 4.5 mmol/L (3.4-4.5); ABG Sodium Whole Blood 137 mmol/L (135-146); ABG TCO2 27 mmol/L (19-24)
[2020-07-21 12:38] LABS: ABG Base Excess 1.8 mmol/L; ABG Glucose Whole Blood 204 mg/dL (75-99); ABG HCO3 26 mmol/L (21-25); ABG Ionized Calcium 4.2 mg/dL (4.5-5.3); ABG PCO2 39 mmHg (35-45); ABG PH 7.44 (7.35-7.45); ABG PO2 254 mmHg (83-108); ABG Potassium Whole Blood 4.7 mmol/L (3.4-4.5); ABG Sodium Whole Blood 138 mmol/L (135-146); ABG TCO2 27 mmol/L (19-24)
[2020-07-21 13:04] LABS: ABG Base Excess 1.4 mmol/L; ABG Glucose Whole Blood 189 mg/dL (75-99); ABG HCO3 27 mmol/L (21-25); ABG Ionized Calcium 4.2 mg/dL (4.5-5.3); ABG Lactic Acid Whole Blood 1.1 mmol/L (0.5-1.6); ABG PCO2 43 mmHg (35-45); ABG PH 7.39 (7.35-7.45); ABG Potassium Whole Blood 4.7 mmol/L (3.4-4.5); ABG Sodium Whole Blood 138 mmol/L (135-146); ABG TCO2 28 mmol/L (19-24)
[2020-07-21 14:24] LABS: ABG Glucose Whole Blood 139 mg/dL (75-99); ABG Lactic Acid Whole Blood 0.8 mmol/L (0.5-1.6); ABG Sodium Whole Blood 139 mmol/L (135-146)
[2020-07-21 14:26] LABS: ABG Hematocrit 23 % (34.0-46.0); ABG PO2 >420 mmHg (83-108)
[2020-07-21 14:27] LABS: ABG Hematocrit 22 % (34.0-46.0)
[2020-07-21] MEDS ORDERED: Phosphorus Replacement Protoco 1 EACH MISC MISCELLANE PRN (14:27)
[2020-07-21] MEDS ORDERED: CALCIUM GLUCONATE 2 GM in SODIUM CHLORIDE 0.9% 100 ML IVPB PRN (14:27)
[2020-07-21] MEDS ORDERED: BENZOCAINE/MENTHOL LOZENG 1 EACH LOZENGE MUCOUS MEM PRN (14:27)
[2020-07-21] MEDS ORDERED: METOCLOPRAMIDE 5 MG/ML 2 ML VIAL IVP PRN (14:27)
[2020-07-21] MEDS ORDERED: hydrALAZINE HCL 20 MG/ML 1 ML VIAL IVP PRN (14:27)
[2020-07-21] MEDS ORDERED: DEXTROSE 5% IN WATER 100 ML with AMIODARONE 150 MG IV PRN (14:27)
[2020-07-21] MEDS ORDERED: AMIODARONE 360 MG in DEXTROSE 5% IN WATER 200 ML IV PRN ×2 (14:27)
[2020-07-21] MEDS ORDERED: MORPHINE SULFATE 2 MG/ML SYRINGE IVP PRN (14:27)
[2020-07-21] MEDS ORDERED: Magnesium Replacement Protocol 1 EACH MISC MISCELLANE PRN (14:27)
[2020-07-21] MEDS ORDERED: Potassium Replacement Protocol 1 EACH MISC MISCELLANE PRN (14:27)
[2020-07-21] MEDS ORDERED: IPRATROPIUM-ALBUTEROL 3 ML NEB INHALATION PRN (14:27)
[2020-07-21 14:28] LABS: ABG Hematocrit 22 % (34.0-46.0)
[2020-07-21 14:29] LABS: ABG PO2 >420 mmHg (83-108)
[2020-07-21 14:30] LABS: ABG Hematocrit 21 % (34.0-46.0)
[2020-07-21 14:37] LABS: ABG Base Excess 0.4 mmol/L; ABG Glucose Whole Blood 195 mg/dL (75-99); ABG HCO3 26 mmol/L (21-25); ABG Hematocrit 25 % (34.0-46.0); ABG Ionized Calcium 4.5 mg/dL (4.5-5.3); ABG Lactic Acid Whole Blood 1.7 mmol/L (0.5-1.6); ABG Oxygen Saturation 99.9 % (94-97); ABG PCO2 43 mmHg (35-45); ABG PH 7.38 (7.35-7.45); ABG PO2 169 mmHg (83-108); ABG Potassium Whole Blood 4.4 mmol/L (3.4-4.5); ABG Sodium Whole Blood 139 mmol/L (135-146); ABG TCO2 27 mmol/L (19-24)
[2020-07-21] MEDS: allopurinoL 100 MG TAB PO SCH (14:49)
[2020-07-21] MEDS: SODIUM CHLORIDE 0.9% 1,000 ML IV SCH (14:50)
[2020-07-21] MEDS ORDERED: DEXMEDETOMIDINE/0.9% NACL(PMX) 400 MCG in EMPTY BAG 1 BAG IV SCH (15:00)
[2020-07-21] MEDS: NOREPINEPHRINE 4 MG in SODIUM CHLORIDE 0.9% 250 ML IV SCH (15:15)
[2020-07-21] MEDS: INSULIN REGULAR 100 UNIT in SODIUM CHLORIDE 0.9% 100 ML IV SCH (15:30)
[2020-07-21] MEDS: MILRINONE-D5W PMX 20 MG in DEXTROSE/WATER 1 100ML.BAG IV SCH ×2 (15:32→22:50)
[2020-07-21 15:35] LABS: Glucose,Whole Blood 199 mg/dL (75-99)
[2020-07-21] MEDS: ALBUMIN HUMAN 5% 250 ML in EMPTY BAG 1 BAG IVPB PRN ×4 (15:36→22:17)
[2020-07-21 16:09] LABS: Ionized Calcium 5.3 mg/dL (4.5-5.3)
[2020-07-21 16:11] LABS: Glucose,Whole Blood 213 mg/dL (75-99)
[2020-07-21 16:15] LABS: Basophils % (A) 0 %; Eosinophils # (A) 0.1 k/uL (0-0.7); Eosinophils % (A) 0 %; HCT 23.9 % (34.0-46.0); Lymphocytes # (A) 1.1 k/uL (1.0-4.8); Lymphocytes % (A) 7 %; MCH 31.5 pg (25.0-35.0); MCHC 33.2 g/dL (31.0-37.0); MCV 94.9 fL (80.0-100.0); Mean Platelet Volume 8.5; Monocytes # (A) 0.7 k/uL (0-1.0); Monocytes % (A) 4 %; Neutrophils # (A) 14.4 k/uL (1.3-7.7); Neutrophils % (A) 88 %; RBC 2.52 m/uL (3.80-5.40); RDW 14.1 % (11.5-15.5); WBC 16.4 k/uL (3.8-10.6)
[2020-07-21 16:18] LABS: INR 1.3 (<1.2); Partial Thromboplastin Time 31.5 sec (22.0-30.0); Prothrombin Time 13.5 sec (9.0-12.0)
[2020-07-21 16:20] LABS: HGB 7.9 gm/dL (11.4-16.0); Platelet Count 109 k/uL (150-450)
[2020-07-21 16:21] LABS: Albumin 3.2 g/dL (3.5-5.0); Calcium 8.9 mg/dL (8.4-10.2); Magnesium 2.6 mg/dL (1.6-2.3); Total Protein 5.3 g/dL (6.3-8.2)
[2020-07-21 16:30] LABS: Potassium 4.8 mmol/L (3.5-5.1)
--- NOTE | 2020-07-21 16:31 | XR ---
EXAMINATION TYPE: XR chest 1V portable DATE OF EXAM: 07/21/2020 COMPARISON: Chest x-ray 07/20/2020 HISTORY: Postop cardiac surgery TECHNIQUE: Single frontal view of the chest is obtained. FINDINGS: Patient is post median sternotomy. Endotracheal tube and NG tube are present, NG tube show s the side port at the level of the gastroesophageal junction. There is a right jugular central venou s sheath with coaxial [place] catheter tip in the right pulmonary artery. Left atrial appendage cli p placement is noted. There are mediastinal drains, epicardial pacing wires, left chest tube. No siza ble pneumothorax or pleural effusion, patchy basilar density likely represents subsegmental atelectat ic change. Cardiac mediastinal silhouette is within normal limits. There are overlying leads. IMPRESSION: Satisfactory postoperative chest x-ray, orogastric tube as described.
[2020-07-21 17:09] LABS: Glucose,Whole Blood 193 mg/dL (75-99)
--- NOTE | 2020-07-21 17:13 | P.PN ---
Subjective Progress Note Date: 07/21/20 Principal diagnosis: Symptomatic multivessel coronary artery disease 70-year-old female patient who is being seen for preop pulmonary clearance regarding coronary artery bypass surgery. The patient has multivessel coronary artery disease and she is post family. Morbid conditions include hypertension, hyperlipidemia, diabetes mellitus type 2 and chronic kidney disease stage IIIB/4. She presented to the hospital because of worsening shortness of breath and chest pain. She was ruled in for non-STEMI. Her troponins were elevated and it peaked at 12.7. Pro-calcitonin level was 0.23. Lactic acid level was 1.4. Chest x-ray showed small bilateral pleural effusions. There was also evidence of pulmonary vascular congestion. Cardiac catheterization was performed and please refer to the results as the patient was found to have triple-vessel disease with critical stenosis involving the LAD 60% in the circumflex, 70-80% and RCA. Patient has already received COVID-19 vaccination. Patient has no complaints and currently she is free of any chest pain. Echocardiogram was done and the patient has an ejection fraction of 30-35% and moderate mitral regurgitation. She is currently on room air oxygen and her pulse ox is around 98%. 07/18/2020, condition is stable. No new complaints for now. The patient is hemodynamically stable and the patient is awaiting cardiac surgery and she is tentatively scheduled to undergo the surgery on 07/21/2020. No new complaints otherwise for now. She is being treated with diuretics and she remains on Lasix 40 mg IV every 24 hours. She is on room air oxygen. She is free of any chest pain. She is on Levemir insulin 10 units along with a Silastic coverage. She is using incentive spirometer. Dental clearance was also given. Reevaluated today on 07/20/2020, patient is doing well, denies any shortness of breath, no cough no wheezing no fever no chills, remains on Lasix 40 mg IV push every 24 hours, remains on room air, and she is already cleared for surgery/CABG by Dr. Vargas. Chest x-ray was reviewed and no evidence of active disease. On 07/21/2020 patient seen in follow-up after 2 vessel bypass grafting surgery and mitral valve repair, she seen intubated, sedated on mechanical ventilator, currently on assist-control mode with a rate of 12, tidal volume is 400, FiO2 50% and PEEP of 10. Postoperative blood gases showed pO2 of greater than 400, pCO2 of 38, and pH of 7.40 this was done and FiO2 100% and it has since been dropped down to 50%. Patient is doing well status post ZARAGOZA to the LAD and SVG to the RCA, mitral valve repair, left leg endoscopic vein harvest and exclusion of the left atrial appendage and intraoperative transesophageal echocardiogram. She then pointed with secondary to 50 ML per hour, Diprivan is currently at 35 mics per kilo per minute, insulin drip is at 5 units per hour, and milrinone is at 0.3 mics per kilo per minute. Hemodynamically patient is stable, PA pressure is 34/19, CVP is 10, cardiac output is 5.1, and cardiac index is 2.7, she is age a paced on the monitor, with underlying rhythm of sinus rhythm with a rate of 60 BPM, epicardial wires connected to an external pacemaker box currently at AAI mode with a rate of 80. Midsternal incision is clean dry intact, chest tube sites are clean dry and intact. Patient has 2 mediastinal and one left pleural chest tube. There is 140 mL of sang. output from the left pleural chest tube and 110 mL of sanguinous output from that mediastinal chest tube. Postoperative chest x-ray shows ET tube, NG tube, lung cancer catheter in appropriate positions. No evidence of sizable pneumothorax. Objective - Vital Signs Vital signs: Vital Signs Temp 35.6 F L 07/21/20 15:45 Pulse 62 07/21/20 15:45 Resp 12 07/21/20 15:45 BP 146/67 07/21/20 06:05 Pulse Ox 99 07/21/20 06:05 Intake & Output 07/20/20 07/21/20 07/21/20 18:59 06:59 18:59 Intake Total 605 200 476.819 Output Total 500 1615 Balance 605 300 -1138.181 Weight 86.5 kg 86.5 kg Intake: IV 200 456.0 Albumin Human 5% 500 ml 250 In Empty Bag 1 bag @ 250 mls/hr IVPB ONCE ONE Rx#: [id number] Nitroglycerin-D5w Pmx 50 3.0 mg In Dextrose/Water 1 250ml.bag @ 5 MCG/MIN 1.5 mls/hr IV .Q24H [facility] Rx#: [id number] Sodium Chloride 0.9% 1, 100 000 ml @ 50 mls/hr IV . Q20H [facility] Rx#:[id number] ceFAZolin 2 gm In Sodium 50 Chloride 0.9% 50 ml @ 100 mls/hr IVPB ONCE ONE Rx# :[id number] Intake, IV Titration 20.819 Amount Insulin Regular 100 unit 2.222 In Sodium Chloride 0.9% 100 ml @ Per Protocol IV .Q0M [facility] Rx#:[id number] propofoL 1,000 mg In 18.597 Empty Bag 1 bag @ Titrate IV .Q0M [facility] Rx#: [id number] Oral 605 Output: Chest Tube Drainage 260 Chest Tube Left Anterior 150 Chest Mediastinal 110 Urine 500 355 Estimated Blood Loss 1000 Other: Voiding Method Toilet Toilet # Voids 1 1 # Bowel Movements 0 ABP, PAP, CO, CI - Last Documented Arterial Blood Pressure 110/45 Pulmonary Artery Pressure 33/19 Cardiac Output 5.1 Cardiac Index 2.7 - Exam GENERAL EXAM: Sedated, intubated, 70-year-old white female, currently on assist control mode of ventilation, with FiO2 50% and PEEP of 10 comfortable in no apparent distress. HEAD: Normocephalic/atraumatic. EYES: Normal reaction of pupils, equal size. Conjunctiva pink, sclera white. NOSE: Clear with pink turbinates. THROAT: No erythema or exudates. NECK: No masses, no JVD, no thyroid enlargement, no adenopathy. CHEST: No chest wall deformity. Symmetrical expansion. Midsternal incision clean dry and intact, 2 mediastinal and left pleural chest tube in place with small amount of sanguinous output. Epicardial wires connected to an external pacemaker box currently on AAI with a rate of 80 BPM, patient is 100 percent paced, intrinsic rhythm is sinus rhythm LUNGS: Equal air entry with no crackles, wheeze, rhonchi or dullness. CVS: Regular rate and rhythm, normal S1 and S2, no gallops, no murmurs, no rubs ABDOMEN: Soft, nontender. No hepatosplenomegaly, normal bowel sounds, no guarding or rigidity. EXTREMITIES: No clubbing, no edema, no cyanosis, 2+ pulses and upper and lower extremities. MUSCULOSKELETAL: Muscle strength and tone normal. SPINE: No scoliosis or deformity SKIN: No rashes CENTRAL NERVOUS SYSTEM: Sedated, intubated No focal deficits, tone is normal in all 4 extremities. - Labs CBC & Chem 7: 07/21/20 14:30 07/21/20 14:30 Labs: Abnormal Lab Results - Last 24 Hours (Table) 07/20/20 07/20/20 07/21/20 Range/Units 07:41 20:27 06:14 WBC (3.8-10.6) k/uL RBC (3.80-5.40) m/uL Hgb (11.4-16.0) gm/dL Hct (34.0-46.0) % Plt Count (150-450) k/uL Neutrophils # (1.3-7.7) k/uL PT (9.0-12.0) sec INR (<1.2) APTT (22.0-30.0) sec ABG pH (7.35-7.45) ABG pO2 (83-108) mmHg ABG HCO3 (21-25) mmol/L ABG Total CO2 (19-24) mmol/L ABG O2 Saturation (94-97) % ABG Hematocrit (34.0-46.0) % ABG Potassium (3.4-4.5) mmol/L ABG Ionized Calcium (4.5-5.3) mg/dL ABG Glucose (75-99) mg/dL ABG Lactic Acid (0.5-1.6) mmol/L Hemoglobin (11.4-16.0) gm/dL BUN (7-17) mg/dL Creatinine (0.52-1.04) mg/dL Glucose (74-99) mg/dL POC Glucose (mg/dL) 236 H 124 H (75-99) mg/dL Magnesium (1.6-2.3) mg/dL AST (14-36) U/L Alkaline Phosphatase (38-126) U/L Total Protein (6.3-8.2) g/dL Albumin (3.5-5.0) g/dL Arterial Blood Potassium (3.4-4.5) mmol/L Arterial Blood Glucose (75-99) mg/dL Crossmatch See Detail 07/21/20 07/21/20 07/21/20 Range/Units 08:46 10:15 11:10 WBC (3.8-10.6) k/uL RBC (3.80-5.40) m/uL Hgb (11.4-16.0) gm/dL Hct (34.0-46.0) % Plt Count (150-450) k/uL Neutrophils # (1.3-7.7) k/uL PT (9.0-12.0) sec INR (<1.2) APTT (22.0-30.0) sec ABG pH 7.49 H 7.46 H (7.35-7.45) ABG pO2 388 H 155 H >420 H (83-108) mmHg ABG HCO3 28 H 27 H 26 H (21-25) mmol/L ABG Total CO2 30 H 28 H 27 H (19-24) mmol/L ABG O2 Saturation 100.0 H 99.8 H 100.0 H (94-97) % ABG Hematocrit 29 L 29 L 23 L (34.0-46.0) % ABG Potassium (3.4-4.5) mmol/L ABG Ionized Calcium 4.1 L (4.5-5.3) mg/dL ABG Glucose 139 H 155 H 162 H (75-99) mg/dL ABG Lactic Acid (0.5-1.6) mmol/L Hemoglobin 9.5 L 9.4 L 7.6 L (11.4-16.0) gm/dL BUN (7-17) mg/dL Creatinine (0.52-1.04) mg/dL Glucose (74-99) mg/dL POC Glucose (mg/dL) (75-99) mg/dL Magnesium (1.6-2.3) mg/dL AST (14-36) U/L Alkaline Phosphatase (38-126) U/L Total Protein (6.3-8.2) g/dL Albumin (3.5-5.0) g/dL Arterial Blood Potassium (3.4-4.5) mmol/L Arterial Blood Glucose 139 H 155 H 162 H (75-99) mg/dL Crossmatch 07/21/20 07/21/20 07/21/20 Range/Units 11:43 12:39 13:06 WBC (3.8-10.6) k/uL RBC (3.80-5.40) m/uL Hgb (11.4-16.0) gm/dL Hct (34.0-46.0) % Plt Count (150-450) k/uL Neutrophils # (1.3-7.7) k/uL PT (9.0-12.0) sec INR (<1.2) APTT (22.0-30.0) sec ABG pH 7.46 H (7.35-7.45) ABG pO2 344 H 254 H >420 H (83-108) mmHg ABG HCO3 26 H 26 H 27 H (21-25) mmol/L ABG Total CO2 27 H 27 H 28 H (19-24) mmol/L ABG O2 Saturation 100.0 H 100.0 H 100.0 H (94-97) % ABG Hematocrit 22 L 22 L 21 L (34.0-46.0) % ABG Potassium 4.7 H 4.7 H (3.4-4.5) mmol/L ABG Ionized Calcium 4.1 L 4.2 L 4.2 L (4.5-5.3) mg/dL ABG Glucose 170 H 204 H 189 H (75-99) mg/dL ABG Lactic Acid (0.5-1.6) mmol/L Hemoglobin 7.0 L* 7.0 L* 6.7 L* (11.4-16.0) gm/dL BUN (7-17) mg/dL Creatinine (0.52-1.04) mg/dL Glucose (74-99) mg/dL POC Glucose (mg/dL) (75-99) mg/dL Magnesium (1.6-2.3) mg/dL AST (14-36) U/L Alkaline Phosphatase (38-126) U/L Total Protein (6.3-8.2) g/dL Albumin (3.5-5.0) g/dL Arterial Blood Potassium 4.7 H 4.7 H (3.4-4.5) mmol/L Arterial Blood Glucose 170 H 204 H 189 H (75-99) mg/dL Crossmatch 07/21/20 07/21/20 07/21/20 Range/Units 14:30 14:30 14:30 WBC 16.4 H (3.8-10.6) k/uL RBC 2.52 L (3.80-5.40) m/uL Hgb 7.9 L D (11.4-16.0) gm/dL Hct 23.9 L (34.0-46.0) % Plt Count 109 L D (150-450) k/uL Neutrophils # 14.4 H (1.3-7.7) k/uL PT 13.5 H (9.0-12.0) sec INR 1.3 H (<1.2) APTT 31.5 H (22.0-30.0) sec ABG pH (7.35-7.45) ABG pO2 (83-108) mmHg ABG HCO3 (21-25) mmol/L ABG Total CO2 (19-24) mmol/L ABG O2 Saturation (94-97) % ABG Hematocrit (34.0-46.0) % ABG Potassium (3.4-4.5) mmol/L ABG Ionized Calcium (4.5-5.3) mg/dL ABG Glucose (75-99) mg/dL ABG Lactic Acid (0.5-1.6) mmol/L Hemoglobin (11.4-16.0) gm/dL BUN 24 H (7-17) mg/dL Creatinine 1.46 H (0.52-1.04) mg/dL Glucose 188 H (74-99) mg/dL POC Glucose (mg/dL) (75-99) mg/dL Magnesium 2.6 H (1.6-2.3) mg/dL AST 62 H (14-36) U/L Alkaline Phosphatase 33 L (38-126) U/L Total Protein 5.3 L (6.3-8.2) g/dL Albumin 3.2 L (3.5-5.0) g/dL Arterial Blood Potassium (3.4-4.5) mmol/L Arterial Blood Glucose (75-99) mg/dL Crossmatch 07/21/20 07/21/20 07/21/20 Range/Units 14:38 15:29 16:00 WBC (3.8-10.6) k/uL RBC (3.80-5.40) m/uL Hgb (11.4-16.0) gm/dL Hct (34.0-46.0) % Plt Count (150-450) k/uL Neutrophils # (1.3-7.7) k/uL PT (9.0-12.0) sec INR (<1.2) APTT (22.0-30.0) sec ABG pH (7.35-7.45) ABG pO2 169 H (83-108) mmHg ABG HCO3 26 H (21-25) mmol/L ABG Total CO2 27 H (19-24) mmol/L ABG O2 Saturation 99.9 H (94-97) % ABG Hematocrit 25 L (34.0-46.0) % ABG Potassium (3.4-4.5) mmol/L ABG Ionized Calcium (4.5-5.3) mg/dL ABG Glucose 195 H (75-99) mg/dL ABG Lactic Acid 1.7 H (0.5-1.6) mmol/L Hemoglobin 8.3 L (11.4-16.0) gm/dL BUN (7-17) mg/dL Creatinine (0.52-1.04) mg/dL Glucose (74-99) mg/dL POC Glucose (mg/dL) 199 H 213 H (75-99) mg/dL Magnesium (1.6-2.3) mg/dL AST (14-36) U/L Alkaline Phosphatase (38-126) U/L Total Protein (6.3-8.2) g/dL Albumin (3.5-5.0) g/dL Arterial Blood Potassium (3.4-4.5) mmol/L Arterial Blood Glucose 195 H (75-99) mg/dL Crossmatch Assessment and Plan Plan: Assessment: #1. Symptomatic multivessel coronary artery disease and acute non-ST elevated myocardial infarction, status post 2 vessel bypass grafting with ZARAGOZA to the LAD and SVG to RCA, mitral valve repair, left atrial appendage exclusion, postoperative day #0 #2. Routine postoperative ventilator management #3. Severe LV dysfunction with ejection fraction of 30-35% #4. Moderate severe mitral regurgitation status post surgical repair #5. Chronic kidney disease stage IIIB #6. Type 2 diabetes mellitus #7. Benign essential hypertension #8. Dyslipidemia #9. Lifetime nonsmoker Plan: Chest x-ray blood gases and labs reviewed ET tube and the indwelling lines are in appropriate positions FiO2 back to 50% Hemodynamically patient is stable no significant carotid the chest tubes Continue weaning FiO2, wean sedation and let the patient wake up Continue with spontaneous breathing trials once the patient is awake and following commands Continue close hemodynamic monitoring Breathing treatments every 4 hours while on the vent and 4 times daily after extubation Incentive spirometry to the bedside after extubation GI and DVT prophylaxis per CT surgery I performed a history & physical examination of the patient and discussed their management with my nurse practitioner, Eleonora Ward. I reviewed the nurse practitioner's note and agree with the documented findings and plan of care. Lung sounds are positive for diminished breath sounds throughout the lung lazo. The findings and the impression was discussed with the patient. I attest to the documentation by the nurse practitioner. Time with Patient: Greater than 30
[2020-07-21 18:16] LABS: Glucose,Whole Blood 186 mg/dL (75-99)
[2020-07-21] MEDS: HEPARIN SODIUM,PORCINE/PF 5,000 UNIT/0.5 ML SYRINGE SQ SCH (18:23)
[2020-07-21] MEDS: ACETAMINOPHEN IV (For NPO) 1,000 MG in EMPTY BAG 1 BAG IVPB SCH (18:24)
[2020-07-21 18:58] LABS: Basophils % (A) 0 %; Eosinophils % (A) 0 %; HCT 23.8 % (34.0-46.0); HGB 7.9 gm/dL (11.4-16.0); Lymphocytes # (A) 0.9 k/uL (1.0-4.8); Lymphocytes % (A) 8 %; MCH 31.3 pg (25.0-35.0); MCV 94.8 fL (80.0-100.0); Monocytes # (A) 0.4 k/uL (0-1.0); Monocytes % (A) 4 %; Neutrophils # (A) 10.2 k/uL (1.3-7.7); Neutrophils % (A) 88 %; RBC 2.52 m/uL (3.80-5.40); WBC 11.6 k/uL (3.8-10.6)
[2020-07-21] MEDS: IPRATROPIUM-ALBUTEROL 3 ML NEB INHALATION SCH ×2 (19:00→21:14)
[2020-07-21 19:10] LABS: Glucose,Whole Blood 187 mg/dL (75-99)
[2020-07-21 19:23] LABS: Platelet Count 84 k/uL (150-450)
[2020-07-21 19:56] LABS: Glucose,Whole Blood 186 mg/dL (75-99)
[2020-07-21 20:12] LABS: Basophils % (A) 0 %; Eosinophils % (A) 0 %; HGB 7.5 gm/dL (11.4-16.0); Lymphocytes # (A) 0.8 k/uL (1.0-4.8); Lymphocytes % (A) 7 %; MCH 30.9 pg (25.0-35.0); MCHC 32.7 g/dL (31.0-37.0); MCV 94.7 fL (80.0-100.0); Mean Platelet Volume 8.8; Monocytes # (A) 0.4 k/uL (0-1.0); Monocytes % (A) 4 %; Neutrophils # (A) 10.2 k/uL (1.3-7.7); Neutrophils % (A) 89 %; RBC 2.42 m/uL (3.80-5.40); WBC 11.5 k/uL (3.8-10.6)
[2020-07-21 20:17] LABS: Platelet Count 92 k/uL (150-450)
[2020-07-21] MEDS ORDERED: DEXTROSE/WATER 1 250ML.BAG with DOPamine DRIP 800 MG IV SCH (20:45)
[2020-07-21 21:04] LABS: Glucose,Whole Blood 159 mg/dL (75-99)
[2020-07-21] MEDS: CLOPIDOGREL 75 MG TAB PO SCH (21:34)
[2020-07-21] MEDS: ATORVASTATIN 80 MG TAB PO SCH (21:34)
[2020-07-21 21:55] LABS: Glucose,Whole Blood 165 mg/dL (75-99)
[2020-07-21 22:03] LABS: ABG Base Excess -0.8 mmol/L; ABG HCO3 25 mmol/L (21-25); ABG Oxygen Saturation 99.5 % (94-97); ABG PCO2 43 mmHg (35-45); ABG PH 7.37 (7.35-7.45); ABG PO2 139 mmHg (83-108); ABG TCO2 26 mmol/L (19-24); Allen Test Performed? Yes
--- NOTE | 2020-07-21 22:59 | OP ---
OPERATIVE REPORT DATE OF SURGERY: 07/21/2020. SURGEON: Dr. Beverly Pickens. BLINDSTITCH HEMMER: TAL Sanchez PREOPERATIVE DIAGNOSES: 1. Triple-vessel coronary artery disease. 2. Moderate left ventricular dysfunction. 3. Moderate mitral valve regurgitation, functional. 4. Congestive heart failure. 5. Diabetes. 6. Hypertension. 7. Hyperlipidemia. 8. Obesity. 9. Strong family history of coronary artery disease. POSTOPERATIVE DIAGNOSES: 1. Triple-vessel coronary artery disease. 2. Moderate left ventricular dysfunction. 3. Moderate mitral valve regurgitation, functional. 4. Congestive heart failure. 5. Diabetes. 6. Hypertension. 7. Hyperlipidemia. 8. Obesity. 9. Strong family history of coronary artery disease. 10.Diffuse calcified coronary artery disease and evidence of an old anterior wall myocardial infarction. PROCEDURE: 1. Double-vessel coronary artery bypass grafting using the left internal mammary artery to the left anterior descending artery, reverse saphenous vein graft from the aorta to the right coronary artery. 2. Mitral valve repair with reduction posterior annuloplasty using a 26 mm AnnuloFlex band. 3. Exclusion of the left atrial appendage using a 35 mm AtriClip. 4. Endoscopic harvesting of the right greater saphenous vein. 5. Intraoperative graft flow measurements using the Mobilewalla-Stim system. 6. Intraoperative transesophageal echocardiogram and epiaortic scanning. INDICATION FOR SURGERY: The patient is a 70-year-old lady who presented around 10 days ago with a picture of congestive heart failure that evolved over 2-3 weeks. The patient was ruled in for a non- ST-elevation myocardial infarction and had a very high elevated BNP at around 14,000. Investigation included a 2D echo that initially showed severe left ventricular dysfunction and anterior wall akinesia with at least moderate mitral valve regurgitation. Cardiac catheterization followed and that showed severe proximal disease of a calcified LAD, significant disease, calcific, of the mid RCA leading to a diffusely diseased posterior descending artery and a moderate-sized posterolateral branch of the right coronary artery with a couple of high diagonals with no significant stenosis in the high one, which was the biggest one, that is bifurcating, and a very small circumflex system with no target at that level. The patient was treated medically. Then repeat transesophageal echocardiogram confirmed the presence of at least moderate functional mitral valve regurgitation. The patient at this point and after discussion with Cardiology was considered a candidate for coronary artery bypass grafting and mitral valve repair with increased STS risk in view of above. The STS risk was discussed with the patient and her sister. They understood it and agreed to proceed. PROCEDURE DESCRIPTION: With the patient in supine position in the preoperative holding area, a right internal jugular [place]-Arthur catheter and a right radial arterial line were placed. Subsequently she was brought to the operating room, where her PA pressure was around 60/30 and her mean arterial pressure was high. Then when her blood pressure was lower, the PA pressure went down to around 50/25. Her cardiac index was 2.4. Subsequently general endotracheal anesthesia was induced uneventfully. Pathak catheter was inserted. The chest, abdomen and both lower extremities were prepped and draped using ChloraPrep. Ioban was used to cover the skin. Patient received 2 grams of cefazolin intravenously. Transesophageal echocardiogram confirmed the preoperative finding of moderate left anterior dysfunction with mid anteroapical severe hypokinesia to akinesia with at least moderate central mitral valve regurgitation that at that time looked mild to moderate, depending on the blood pressure. There was no evidence of tricuspid valve regurgitation. Midline sternotomy was performed and the bone was moderately osteoporotic. Ostene was used. The left hemisternum was elevated and the left internal mammary artery was harvested in a somewhat skeletonized fashion. Left pleura was intentionally opened in this process and was drained with a 19-American Floyd drain. The patient was given 5000 units of heparin and the mammary artery was clipped distally before its bifurcation and transected. It had an excellent pulsatile flow in it and was around 2 mm in diameter. In the same setting, the right greater saphenous vein was harvested endoscopically from groin to below knee level, where it actually trifurcated, and was not harvested at that level. That vein was prepared. It was large, with one varicosity that was excluded and not used. It was thin and uniform otherwise. The leg incisions were closed over a drain. The vein harvest took place after administration of 2500 units of heparin intravenously. The Jonny mitral retractor was used. Mediastinal fat was transected between 2 ties and epiaortic scanning revealed normal ascending aorta. Pericardium was opened in an inverted T-fashion and a pericardial cradle was created. Findings included a short soft aorta and an enlarged heart with very fatty epicardial surface. After systemic heparinization, after placement of respective pledgeted pursestrings, aortic cannulation in the proximal arch with a 21-American Soft flow cannula, venous cannulation with a right-angle 28-American directly into the SVC and a 30-American at the junction of the IVC with the right atrium was performed. Antegrade as well as retrograde cardioplegia catheters were placed. Cardiopulmonary bypass was initiated and the patient temperature was allowed to drift down to 34 degrees Celsius. With the heart empty and beating and warm, we looked at the target. The LAD was totally intramyocardial. However, it was so calcified that we could feel it deep under the intracardial structures. It was uncovered at its mid to distal aspect, where it was totally calcified and eventually led to a segment where there was a soft anterior wall in its distal third, which would be the site for bypass. Looking at the anterior wall, right coronary artery at the bifurcation had a posterior calcific plaque and a soft anterior wall and would be the site for bypass. Looking at the high lateral wall and the anterior wall, we could see the second diagonal that was too small for bypass and eventually we traced the first diagonal artery and were able to find the deep intraepicardial; however, it was totally calcified and 1.2 mm in diameter and non- bypassable. The aorta was clamped at this point, with initial myocardial protection with a liter of antegrade cold blood cardioplegia with adequate arrest at 200 mL followed by 400 mL of retrograde cold blood cardioplegia. All subsequent doses were given retrograde at around 15-minute intervals. We started by excluding the left atrial appendage with a 35 mm AtriClip deployed at its base. Subsequently the first distal anastomosis was between a segment of vein that was large and uniform and the right coronary artery at the bifurcation, which was around 2 mm in diameter using Prolene 7-0 in continuous fashion. The second distal anastomosis was between the left internal mammary artery that passed in a deep groove in the left pleuropericardial fat and anastomosed to the distal third of the left anterior descending artery in an area where it was opened, and accomodated a 1 mm shunt and the artery was around 1.4 mm in diameter with scattered calcific plaque. The anastomosis was completed using Prolene 7-0 in continuous fashion. The pedicle was affixed to the epicardium with a couple of Prolene 6-0. Attention was moved at this point to performing the mitral valve repair part. Both cava were encircled but not tightened. The interatrial groove was developed and a standard transverse left atriotomy was performed. Visualization of the mitral valve was a bit difficult despite the Jonny retractor. Eventually we were able to pass 9 sutures of Tycron 2-0 non-pledgeted from trigone to trigone posteriorly. The valve appeared to be pliable. The sutures were passed in a 26 mm posterior AnnuloFlex band, which seated nicely. All the needles were cut and the suture tied using the Cor Knot device. Testing at this point revealed no mitral leak. CO2 was flowing over the field as long as the left cavities were open. Subsequently the left atriotomy was closed using a running 4-0 Prolene pledgeted on each corner and meeting in the midline. Before full closure, de-airing maneuvers were conducted. At this point, rewarming was started as we punched out a button of 5 mm from the ascending aorta and performed the single proximal anastomosis of the vein graft to the aorta using Prolene 6-0 in a running fashion. The patient was half-loaded with Primacor and de-airing maneuvers followed. He was given lidocaine and magnesium. With the patient in Trendelenburg position and the aortic root on maximum vent, we unclamped the aorta. The patient required one single defibrillation to regain spontaneous sinus rhythm. Preliminary graft flow showed excellent graft flows. Around 15-20 minutes of reperfusion and after guiding de-airing with the SLOANE, we were able to wean off cardiopulmonary bypass on 0.2 mcg/kg per minute of Primacor and low- dose Levophed. At this point SLOANE showed no mitral regurgitation. De-airing was adequate. LV function was mildly to moderately decreased. Left atrial appendage was adequately excluded. At this point, we performed formal measurement of the flows. A 4 mm probe was selected and the flow into the vein graft to the RCA was 60 mL/minute, pulsatility index of 2.6, diastolic filling of 61%, showing excellent functioning graft. The flow into the left internal mammary artery to the left anterior descending artery was 85 mL/minute, pulsatility index of 2.9, diastolic filling of 73%, showing an excellent functioning graft. With that we stopped all pump suckers and test-dose and full-dose protamine was given. Decannulation followed. The IVC cannulation site required reinforcement with a pledgeted 4-0 Prolene. Two monopolar atrial pacing wires were affixed, one to the pursestring of the retrograde site and another one to the junction of the SVC and right atrium. One bipolar ventricular pacing wire was affixed to the anterior aspect of the right ventricle with two 6-0 sutures. Two 19-American Floyd drains were left substernally. The right pleura remained intact. Pericardial fat was loosely approximated over the aorta and the graft . After ensuring adequate hemostasis and hemodynamics and after correct sponge, instrument and needle counts, the sternum was closed using 5 [id number] pineal cables after interposing Fibrillar between the sternal edges. Thorough irrigation with cefazolin followed. The rest of the closure proceeded in layers. Skin glue was applied. The patient did not receive any blood bank product but received 350 mL of Cell Saver blood. She was transferred to the ICU, atrially paced at 84, a sinus rhythm of 60, PA pressure 40/20, cardiac index of 2.2 on 0.3 mcg/kg per minute of Primacor and low-dose Levophed with a normal EKG. MMODL / IJN: [id number] / MTDD
[2020-07-21 23:06] LABS: Glucose,Whole Blood 171 mg/dL (75-99)
--- NOTE | 2020-07-21 23:15 | P.PN ---
Subjective Progress Note Date: 07/20/20 Principal diagnosis: Acute non-ST elevated RI Multivessel coronary artery disease This is a pleasant 70 years old female with past medical history of diabetes mellitus, hypertension, hyperlipidemia, stage IV chronic kidney disease. He is a patient of Dr. Barnett presents because OF chest pain and progressive dyspnea over few days. Her chest pain started last Monday for 3-4 days ago, it improved gradually but got worse yesterday. Pain was coming and going. Last night it did not go away so decided to come to the hospital. Was about 5/70 severity on the left side, none dictated. Associated with orthopnea and paroxysmal nocturnal dyspnea. She has to sit up to avoid shortness of breath. She has some little cough and phlegm. Pathak catheter was placed in the emergency room. No GI or urinary symptoms initially patient admitted with oxygen supplemented via BiPAP machine including this morning, currently her breathing is improving and she is only on 4 L oxygen and is She denies smoking, alcohol or illicit drugs. Currently she is saturating 96% on 4 L nasal cannula, patient is afebrile. Lap showing WBC of 11.0 K, hemoglobin 11.3, INR is 1.0, sodium 135, creatinine is 1.8. Baseline 1.8-2.2. INR is normal 1.0, trace of BMP and liver enzymes are unremarkable. Troponin is elevated at 0.6 [place] [address]. Physical exam, no espinal virus are not detected. Echocardiogram: October ejection fraction 30-35%, several wall motion abnormality chest x-ray: Bilateral lung capacity, edema or infection In the emergency room patient was started on aspirin, heparin drip, lorazepam, furosemide 40 mg IV once. 07/11/2020 Patient with minimal symptoms today however lying in bed most of the time. She has chest pain on and off Hemodynamically stable Creatinine stable at 1.9, nephrology on the case as patient is going for cardiac cath, adequate sodium bicarb today. 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 Nothing by mouth after midnight In the meantime patient remains on heparin drip, IV Lasix. Also she is on aspirin. 07/12/20 Patient remains with minimal symptoms while she is at rest. Chest pain on and off. Hemodynamically stable. And her creatinine only slightly up over the last 2 days 1.8, 1.9 and 2.0 today, scheduler conveyor stopped her IV Lasix and Cozaar as well. Patient underwent cardiac cath today and found to have severe triple vessel coronary artery disease, cardiothoracic surgery team is Consulted. Patient heparin drip was stopped and started on nitroglycerin drip. Lasix, Cozaar and D5W were stopped and patient was started on normal saline at 75 mL/h. May consider to stop normal saline tomorrow 07/13/2020 This is a [id number] years old female presents because of non-STEMI and ischemic cardiomyopathy with ejection fraction 30-35%. Underwent cardiac cath showing severe triple vessel coronary artery disease and isn't currently been evaluated by cardiothoracic surgery for bypass procedure. Also echocardiogram showing moderate mitral regurgitation and moderate pulmonary hypertension Also patient is followed closely by nephrology to follow her chronic kidney disease stage 3-4, currently her creatinine stable at 1.9, Cozaar was held. Hepatitis panel negative. Patient was sitting of double chair with no chest pain and no other symptoms. And she is hemodynamically stable 07/14/2020 Patient is currently sitting in chair comfortably. No complaints of chest pain shortness of breath. No headache or dizziness or lightheadedness. No fever no chills. No nausea vomiting or abdominal pain or diarrhea. Tolerating oral diet. Patient is being continued on aspirin statins and Imdur and metoprolol. 2D echocardiogram flexion fraction 30 to 35% with severe hypokinesis of the anterior apical, anteroseptal wall. Losartan is on hold due to elevated creatinine level. Cardiology and CT surgery is on board. Evaluating for revascularization surgery. Laboratory data showed sodium 136 potassium 4.1 BUN 38 and creatinine 1.89 07/15/2020 Patient is currently resting in the chair comfortably. No complaints of chest pain or shortness of breath. EKG showed sinus rhythm with persistent anterior notions in the precordial leads. Laboratory data showed WBC 6.6 hemoglobin 9.8 platelets 180, sodium 136 potassium 4.1 BUN 36 and creatinine 1.87 and magnesium 1.8 Lower extremity arterial duplex. The left side is normal. Possibly mild infra popliteal disease on the right. Perfusion pressures appear adequate. Vein mapping was done today. Denied any nausea vomiting abdominal pain or diarrhea. 07/16/2020 Patient is currently sitting in a chair. No complaints of chest pain or shortness of breath. Titrate down oxygen to room air now. patient had SLOANE done today. Facial CT showed paranasal sinuses are grossly clear. Multiple cavitary petra lings in the bilateral premolar and molar teeth causing streak artifact limiting evaluation at these levels. Patient has been afebrile. No nausea vomiting or abdominal pain or diarrhea. Follow-up CBC and BMP tomorrow. Cardiology, CT surgery is on board. 07/17/2020 Patient is currently sitting in a chair comfortably no complaints of chest pain or shortness breath. 97% on room air. CT face showed multiple cavitary fillings in the bilateral premolar, molar teeth causing streak artifact limiting evaluation. Patient is scheduled for dental evaluation today. No fever no chills. No cough or sputum production. Patient is being treated insulin sliding scale. Also Actos and linagliptin and Amaryl. Lab data showed WBC 6.1 hemoglobin 10.5 and platelets 237, sodium 138 potassium 3.8 bicarb is 32 BUN 34 and creatinine 1.78, calcium 9.0 07/18/2020. Patient is currently sitting in the chair comfortably. Patient is scheduled for cardiac revascularization surgery for 1120. No complaints of ches t pain or shortness breath. Patient was started Levemir 10 units at bedtime and insulin sliding scale. Continue to hold oral hypoglycemics. Patient has been continued Lasix 40 mg IV daily. Nephrology and pulmonary is on board. 07/19/2020 Patient is currently sitting in a chair comfortably. No complaints of chest pain or shortness of this. No headache or dizziness or lightheadedness. No nausea vomiting abdominal pain or diarrhea. Patient is being continued Lasix IV 40 mg daily. Blood sugar is better controlled today. Continue with Levemir and insulin sliding scale and adjust dose as needed. Patient has been afebrile. Scheduled for cardiac revascularization surgery on 06/21/2020. Nephrology is on board. 07/20/2020 Patient is currently sitting in the seat comfortably. Still having bilateral lower extremity swelling and is being continued Lasix 40 mg every 24 hours. Saturating well on room air. No chest pain or shortness breath. Patient is being scheduled for coronary revascularization tomorrow.Laboratory data reviewed. Current medications reviewed. Objective - Vital Signs Vital signs: Vital Signs Temp 97.1 F L 07/20/20 15:30 Pulse 57 L 07/20/20 15:30 Resp 18 07/20/20 15:30 BP 140/62 07/20/20 15:30 Pulse Ox 97 07/20/20 15:30 Intake & Output 07/20/20 07/20/20 07/21/20 06:59 18:59 06:59 Intake Total 605 Balance 605 Intake: Oral 605 Other: Voiding Method Toilet Toilet # Voids 1 - Exam GENERAL: The patient is alert and oriented x3, not in any acute distress. Well developed, well nourished. HEENT: Pupils are round and equally reacting to light. EOMI. No scleral icterus. No conjunctival pallor. Normocephalic, atraumatic. No pharyngeal erythema. No thyromegaly. CARDIOVASCULAR: S1 and S2 present. No murmurs, rubs, or gallops. PULMONARY: Chest is clear to auscultation, no wheezing or crackles. ABDOMEN: Soft, nontender, nondistended, normoactive bowel sounds. No palpable organomegaly. MUSCULOSKELETAL: No joint swelling or deformity. EXTREMITIES: No cyanosis, clubbing, 2+ pedal edema. NEUROLOGICAL: Gross neurological examination did not reveal any focal deficits. SKIN: No rashes. no petechiae. - Labs CBC & Chem 7: 07/21/20 20:00 07/21/20 14:30 Labs: Abnormal Lab Results - Last 24 Hours (Table) 07/20/20 07/20/20 07/20/20 Range/Units 06:18 07:41 07:41 RBC 3.46 L (3.80-5.40) m/uL Hgb 10.7 L (11.4-16.0) gm/dL Hct 32.8 L (34.0-46.0) % Carbon Dioxide (22-30) mmol/L BUN (7-17) mg/dL Creatinine (0.52-1.04) mg/dL Glucose (74-99) mg/dL POC Glucose (mg/dL) 113 H (75-99) mg/dL Crossmatch See Detail 07/20/20 07/20/20 07/20/20 Range/Units 07:41 11:59 16:45 RBC (3.80-5.40) m/uL Hgb (11.4-16.0) gm/dL Hct (34.0-46.0) % Carbon Dioxide 32 H (22-30) mmol/L BUN 26 H (7-17) mg/dL Creatinine 1.87 H (0.52-1.04) mg/dL Glucose 151 H (74-99) mg/dL POC Glucose (mg/dL) 191 H 193 H (75-99) mg/dL Crossmatch 07/20/20 Range/Units 20:27 RBC (3.80-5.40) m/uL Hgb (11.4-16.0) gm/dL Hct (34.0-46.0) % Carbon Dioxide (22-30) mmol/L BUN (7-17) mg/dL Creatinine (0.52-1.04) mg/dL Glucose (74-99) mg/dL POC Glucose (mg/dL) 236 H (75-99) mg/dL Crossmatch Assessment and Plan Assessment: Multivessel coronary artery disease acute systolic CHF exacerbation, ejection fraction 30-35% and moderate MR Acute hypoxic respiratory failure secondary to both non-stemi with chest pain and elevated troponin. Diabetes mellitus 2 Hypertension Hyperlipidemia stage IV chronic kidney disease Ongoing nicotine addiction DVT prophylaxis Plan: this is a pleasant 70 years old female who presents with CHF and non-STEMI. Patient is status post cardiac catheterization multivessel coronary dis ease.Patient is being continued on lasix IV , aspirin, statins, Imdur and metoprolol. Losartan is on hold due to cKD CT surgery and cardiology is on board. Evaluating for cardiac revascularization surgery. Nephrology is following due to chronic kidney disease. will hold oral hypoglycemics and started on insulin regimen Labs and medication were reviewed. Monitor lytes and vitals. DVT and GI p rophylaxis. Further recommendations as per clinical course of the patient DVT prophylaxis : Heparin GI Prophylaxis: Pepcid PT/OT: Pending Prognosis is guarded Time with Patient: Greater than 30
--- NOTE | 2020-07-21 23:21 | P.PN ---
Subjective Progress Note Date: 07/21/20 Principal diagnosis: Acute non-ST elevated [place] Multivessel coronary artery disease This is a pleasant 70 years old female with past medical history of diabetes mellitus, hypertension, hyperlipidemia, stage IV chronic kidney disease. He is a patient of Dr. Barnett presents because OF chest pain and progressive dyspnea over few days. Her chest pain started last Monday for 3-4 days ago, it improved gradually but got worse yesterday. Pain was coming and going. Last night it did not go away so decided to come to the hospital. Was about 5/70 severity on the left side, none dictated. Associated with orthopnea and paroxysmal nocturnal dyspnea. She has to sit up to avoid shortness of breath. She has some little cough and phlegm. Pathak catheter was placed in the emergency room. No GI or urinary symptoms initially patient admitted with oxygen supplemented via BiPAP machine including this morning, currently her breathing is improving and she is only on 4 L oxygen and is She denies smoking, alcohol or illicit drugs. Currently she is saturating 96% on 4 L nasal cannula, patient is afebrile. Lap showing WBC of 11.0 K, hemoglobin 11.3, INR is 1.0, sodium 135, creatinine is 1.8. Baseline 1.8-2.2. INR is normal 1.0, trace of BMP and liver enzymes are unremarkable. Troponin is elevated at 0.6 [place] [address]. Physical exam, no espinal virus are not detected. Echocardiogram: October ejection fraction 30-35%, several wall motion abnormality chest x-ray: Bilateral lung capacity, edema or infection In the emergency room patient was started on aspirin, heparin drip, lorazepam, furosemide 40 mg IV once. 07/11/2020 Patient with minimal symptoms today however lying in bed most of the time. She has chest pain on and off Hemodynamically stable Creatinine stable at 1.9, nephrology on the case as patient is going for cardiac cath, adequate sodium bicarb today. 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 Nothing by mouth after midnight In the meantime patient remains on heparin drip, IV Lasix. Also she is on aspirin. 07/12/20 Patient remains with minimal symptoms while she is at rest. Chest pain on and off. Hemodynamically stable. And her creatinine only slightly up over the last 2 days 1.8, 1.9 and 2.0 today, bus operator stopped her IV Lasix and Cozaar as well. Patient underwent cardiac cath today and found to have severe triple vessel coronary artery disease, cardiothoracic surgery team is Consulted. Patient heparin drip was stopped and started on nitroglycerin drip. Lasix, Cozaar and D5W were stopped and patient was started on normal saline at 75 mL/h. May consider to stop normal saline tomorrow 07/13/2020 This is a [id number] years old female presents because of non-STEMI and ischemic cardiomyopathy with ejection fraction 30-35%. Underwent cardiac cath showing severe triple vessel coronary artery disease and isn't currently been evaluated by cardiothoracic surgery for bypass procedure. Also echocardiogram showing moderate mitral regurgitation and moderate pulmonary hypertension Also patient is followed closely by nephrology to follow her chronic kidney disease stage 3-4, currently her creatinine stable at 1.9, Cozaar was held. Hepatitis panel negative. Patient was sitting of double chair with no chest pain and no other symptoms. And she is hemodynamically stable 07/14/2020 Patient is currently sitting in chair comfortably. No complaints of chest pain shortness of breath. No headache or dizziness or lightheadedness. No fever no chills. No nausea vomiting or abdominal pain or diarrhea. Tolerating oral diet. Patient is being continued on aspirin statins and Imdur and metoprolol. 2D echocardiogram flexion fraction 30 to 35% with severe hypokinesis of the anterior apical, anteroseptal wall. Losartan is on hold due to elevated creatinine level. Cardiology and CT surgery is on board. Evaluating for revascularization surgery. Laboratory data showed sodium 136 potassium 4.1 BUN 38 and creatinine 1.89 07/15/2020 Patient is currently resting in the chair comfortably. No complaints of chest pain or shortness of breath. EKG showed sinus rhythm with persistent anterior notions in the precordial leads. Laboratory data showed WBC 6.6 hemoglobin 9.8 platelets 180, sodium 136 potassium 4.1 BUN 36 and creatinine 1.87 and magnesium 1.8 Lower extremity arterial duplex. The left side is normal. Possibly mild infra popliteal disease on the right. Perfusion pressures appear adequate. Vein mapping was done today. Denied any nausea vomiting abdominal pain or diarrhea. 07/16/2020 Patient is currently sitting in a chair. No complaints of chest pain or shortness of breath. Titrate down oxygen to room air now. patient had SLOANE done today. Facial CT showed paranasal sinuses are grossly clear. Multiple cavitary petra lings in the bilateral premolar and molar teeth causing streak artifact limiting evaluation at these levels. Patient has been afebrile. No nausea vomiting or abdominal pain or diarrhea. Follow-up CBC and BMP tomorrow. Cardiology, CT surgery is on board. 07/17/2020 Patient is currently sitting in a chair comfortably no complaints of chest pain or shortness breath. 97% on room air. CT face showed multiple cavitary fillings in the bilateral premolar, molar teeth causing streak artifact limiting evaluation. Patient is scheduled for dental evaluation today. No fever no chills. No cough or sputum production. Patient is being treated insulin sliding scale. Also Actos and linagliptin and Amaryl. Lab data showed WBC 6.1 hemoglobin 10.5 and platelets 237, sodium 138 potassium 3.8 bicarb is 32 BUN 34 and creatinine 1.78, calcium 9.0 07/18/2020. Patient is currently sitting in the chair comfortably. Patient is scheduled for cardiac revascularization surgery for 1120. No complaints of ches t pain or shortness breath. Patient was started Levemir 10 units at bedtime and insulin sliding scale. Continue to hold oral hypoglycemics. Patient has been continued Lasix 40 mg IV daily. Nephrology and pulmonary is on board. 07/19/2020 Patient is currently sitting in a chair comfortably. No complaints of chest pain or shortness of this. No headache or dizziness or lightheadedness. No nausea vomiting abdominal pain or diarrhea. Patient is being continued Lasix IV 40 mg daily. Blood sugar is better controlled today. Continue with Levemir and insulin sliding scale and adjust dose as needed. Patient has been afebrile. Scheduled for cardiac revascularization surgery on 06/21/2020. Nephrology is on board. 07/20/2020 Patient is currently sitting in the seat comfortably. Still having bilateral lower extremity swelling and is being continued Lasix 40 mg every 24 hours. Saturating well on room air. No chest pain or shortness breath. Patient is being scheduled for coronary revascularization tomorrow.Laboratory data reviewed. 07/21/2020 Patient underwent two-vessel coronary artery bypass graft today. Patient is intubated and sedated and on mechanical ventilator for surgery. Chest x-ray showed satisfactory postoperative chest x-ray. Orogastric tube is present. Patient has been afebrile. Currently assist control with tidal volume 400 FiO2 50% and PEEP of 10. Chest tubes in place. No evidence of pneumothorax. Laboratory data showed WBC 16.4 hemoglobin 7.9 and platelets 109 BUN [address] surgery and pulmonary is on board. Current medications reviewed. Objective - Vital Signs Vital signs: Vital Signs Temp 35.7 F L 07/21/20 18:00 Pulse 80 07/21/20 21:26 Resp 21 07/21/20 19:00 BP 146/67 07/21/20 06:05 Pulse Ox 100 07/21/20 19:00 Intake & Output 07/21/20 07/21/20 07/22/20 06:59 18:59 06:59 Intake Total 200 656.020 82.617 Output Total 500 1793 59 Balance -300 -1136.980 23.617 Weight 86.5 kg 86.5 kg Intake: IV 200 605.0 60.5 Albumin Human 5% 500 ml 250 In Empty Bag 1 bag @ 250 mls/hr IVPB ONCE ONE Rx#: [id number] Cardiac Output 40 Nitroglycerin-D5w Pmx 50 6.0 1.5 mg In Dextrose/Water 1 250ml.bag @ 5 MCG/MIN 1.5 mls/hr IV .Q24H CALLY Rx#: [id number] Pressure Bag 6 9 Sodium Chloride 0.9% 1, 200 50 000 ml @ 50 mls/hr IV . Q20H [facility]ALLY Rx#:[id number] ceFAZolin 2 gm In Sodium 50 Chloride 0.9% 50 ml @ 100 mls/hr IVPB ONCE ONE Rx# :[id number] Intake, IV Titration 51.020 22.117 Amount Clevidipine Butyrate 25 7.166 5.233 mg In Empty Bag 1 bag @ 1 MG/HR 2 mls/hr IV .Q24H [facility]ALLY Rx#:[id number] Insulin Regular 100 unit 11.531 16.884 In Sodium Chloride 0.9% 100 ml @ Per Protocol IV .Q0M [facility]ALLY Rx#:[id number] Norepinephrine 4 mg In 2.307 Sodium Chloride 0.9% 250 ml @ 0.05 MCG/KG/MIN 16. 478 mls/hr IV .[id number] [facility] Rx#:[id number] propofoL 1,000 mg In 30.016 Empty Bag 1 bag @ Titrate IV .Q0M [facility]ALLY Rx#: [id number] Output: Chest Tube Drainage 318 34 Chest Tube Left Anterior 162 0 Chest Mediastinal 156 34 Gastric Drainage 50 Urine 500 425 25 Estimated Blood Loss 1000 Other: Voiding Method Toilet Indwelling Catheter Indwelling Catheter # Voids 1 # Bowel Movements 0 ABP, PAP, CO, CI - Last Documented Arterial Blood Pressure 133/46 Pulmonary Artery Pressure 30/15 Cardiac Output 5.5 Cardiac Index 2.9 - Exam GENERAL: Patient is currently intubated, sedated and on mechanical ventilator.. HEENT: Pupils are round and equally reacting to light. No scleral icterus. No conjunctival pallor. Normocephalic, atraumatic. No pharyngeal erythema. No thyromegaly. CARDIOVASCULAR: S1 and S2 present. No murmurs, rubs, or gallops. PULMONARY: Chest is clear to auscultation, no wheezing or crackles. Chest tubes in place. ABDOMEN: Soft, nontender, nondistended, normoactive bowel sounds. No palpable organomegaly. MUSCULOSKELETAL: No joint swelling or deformity. EXTREMITIES: No cyanosis, clubbing, 2+ pedal edema. NEUROLOGICAL: Gross neurological examination did not reveal any focal deficits. SKIN: No rashes. no petechiae. - Labs CBC & Chem 7: 07/21/20 20:00 07/21/20 14:30 Labs: Abnormal Lab Results - Last 24 Hours (Table) 07/20/20 07/21/20 07/21/20 Range/Units 07:41 06:14 08:46 WBC (3.8-10.6) k/uL RBC (3.80-5.40) m/uL Hgb (11.4-16.0) gm/dL Hct (34.0-46.0) % Plt Count (150-450) k/uL Neutrophils # (1.3-7.7) k/uL Lymphocytes # (1.0-4.8) k/uL PT (9.0-12.0) sec INR (<1.2) APTT (22.0-30.0) sec ABG pH 7.49 H (7.35-7.45) ABG pO2 388 H (83-108) mmHg ABG HCO3 28 H (21-25) mmol/L ABG Total CO2 30 H (19-24) mmol/L ABG O2 Saturation 100.0 H (94-97) % ABG Hematocrit 29 L (34.0-46.0) % ABG Potassium (3.4-4.5) mmol/L ABG Ionized Calcium (4.5-5.3) mg/dL ABG Glucose 139 H (75-99) mg/dL ABG Lactic Acid (0.5-1.6) mmol/L Hemoglobin 9.5 L (11.4-16.0) gm/dL BUN (7-17) mg/dL Creatinine (0.52-1.04) mg/dL Glucose (74-99) mg/dL POC Glucose (mg/dL) 124 H (75-99) mg/dL Magnesium (1.6-2.3) mg/dL AST (14-36) U/L Alkaline Phosphatase (38-126) U/L Total Protein (6.3-8.2) g/dL Albumin (3.5-5.0) g/dL Arterial Blood Potassium (3.4-4.5) mmol/L Arterial Blood Glucose 139 H (75-99) mg/dL Crossmatch See Detail 07/21/20 07/21/20 07/21/20 Range/Units 10:15 11:10 11:43 WBC (3.8-10.6) k/uL RBC (3.80-5.40) m/uL Hgb (11.4-16.0) gm/dL Hct (34.0-46.0) % Plt Count (150-450) k/uL Neutrophils # (1.3-7.7) k/uL Lymphocytes # (1.0-4.8) k/uL PT (9.0-12.0) sec INR (<1.2) APTT (22.0-30.0) sec ABG pH 7.46 H 7.46 H (7.35-7.45) ABG pO2 155 H >420 H 344 H (83-108) mmHg ABG HCO3 27 H 26 H 26 H (21-25) mmol/L ABG Total CO2 28 H 27 H 27 H (19-24) mmol/L ABG O2 Saturation 99.8 H 100.0 H 100.0 H (94-97) % ABG Hematocrit 29 L 23 L 22 L (34.0-46.0) % ABG Potassium (3.4-4.5) mmol/L ABG Ionized Calcium 4.1 L 4.1 L (4.5-5.3) mg/dL ABG Glucose 155 H 162 H 170 H (75-99) mg/dL ABG Lactic Acid (0.5-1.6) mmol/L Hemoglobin 9.4 L 7.6 L 7.0 L* (11.4-16.0) gm/dL BUN (7-17) mg/dL Creatinine (0.52-1.04) mg/dL Glucose (74-99) mg/dL POC Glucose (mg/dL) (75-99) mg/dL Magnesium (1.6-2.3) mg/dL AST (14-36) U/L Alkaline Phosphatase (38-126) U/L Total Protein (6.3-8.2) g/dL Albumin (3.5-5.0) g/dL Arterial Blood Potassium (3.4-4.5) mmol/L Arterial Blood Glucose 155 H 162 H 170 H (75-99) mg/dL Crossmatch 07/21/20 07/21/20 07/21/20 Range/Units 12:39 13:06 14:30 WBC 16.4 H (3.8-10.6) k/uL RBC 2.52 L (3.80-5.40) m/uL Hgb 7.9 L D (11.4-16.0) gm/dL Hct 23.9 L (34.0-46.0) % Plt Count 109 L D (150-450) k/uL Neutrophils # 14.4 H (1.3-7.7) k/uL Lymphocytes # (1.0-4.8) k/uL PT (9.0-12.0) sec INR (<1.2) APTT (22.0-30.0) sec ABG pH (7.35-7.45) ABG pO2 254 H >420 H (83-108) mmHg ABG HCO3 26 H 27 H (21-25) mmol/L ABG Total CO2 27 H 28 H (19-24) mmol/L ABG O2 Saturation 100.0 H 100.0 H (94-97) % ABG Hematocrit 22 L 21 L (34.0-46.0) % ABG Potassium 4.7 H 4.7 H (3.4-4.5) mmol/L ABG Ionized Calcium 4.2 L 4.2 L (4.5-5.3) mg/dL ABG Glucose 204 H 189 H (75-99) mg/dL ABG Lactic Acid (0.5-1.6) mmol/L Hemoglobin 7.0 L* 6.7 L* (11.4-16.0) gm/dL BUN (7-17) mg/dL Creatinine (0.52-1.04) mg/dL Glucose (74-99) mg/dL POC Glucose (mg/dL) (75-99) mg/dL Magnesium (1.6-2.3) mg/dL AST (14-36) U/L Alkaline Phosphatase (38-126) U/L Total Protein (6.3-8.2) g/dL Albumin (3.5-5.0) g/dL Arterial Blood Potassium 4.7 H 4.7 H (3.4-4.5) mmol/L Arterial Blood Glucose 204 H 189 H (75-99) mg/dL Crossmatch 07/21/20 07/21/20 07/21/20 Range/Units 14:30 14:30 14:38 WBC (3.8-10.6) k/uL RBC (3.80-5.40) m/uL Hgb (11.4-16.0) gm/dL Hct (34.0-46.0) % Plt Count (150-450) k/uL Neutrophils # (1.3-7.7) k/uL Lymphocytes # (1.0-4.8) k/uL PT 13.5 H (9.0-12.0) sec INR 1.3 H (<1.2) APTT 31.5 H (22.0-30.0) sec ABG pH (7.35-7.45) ABG pO2 169 H (83-108) mmHg ABG HCO3 26 H (21-25) mmol/L ABG Total CO2 27 H (19-24) mmol/L ABG O2 Saturation 99.9 H (94-97) % ABG Hematocrit 25 L (34.0-46.0) % ABG Potassium (3.4-4.5) mmol/L ABG Ionized Calcium (4.5-5.3) mg/dL ABG Glucose 195 H (75-99) mg/dL ABG Lactic Acid 1.7 H (0.5-1.6) mmol/L Hemoglobin 8.3 L (11.4-16.0) gm/dL BUN 24 H (7-17) mg/dL Creatinine 1.46 H (0.52-1.04) mg/dL Glucose 188 H (74-99) mg/dL POC Glucose (mg/dL) (75-99) mg/dL Magnesium 2.6 H (1.6-2.3) mg/dL AST 62 H (14-36) U/L Alkaline Phosphatase 33 L (38-126) U/L Total Protein 5.3 L (6.3-8.2) g/dL Albumin 3.2 L (3.5-5.0) g/dL Arterial Blood Potassium (3.4-4.5) mmol/L Arterial Blood Glucose 195 H (75-99) mg/dL Crossmatch 07/21/20 07/21/20 07/21/20 Range/Units 15:29 16:00 17:08 WBC (3.8-10.6) k/uL RBC (3.80-5.40) m/uL Hgb (11.4-16.0) gm/dL Hct (34.0-46.0) % Plt Count (150-450) k/uL Neutrophils # (1.3-7.7) k/uL Lymphocytes # (1.0-4.8) k/uL PT (9.0-12.0) sec INR (<1.2) APTT (22.0-30.0) sec ABG pH (7.35-7.45) ABG pO2 (83-108) mmHg ABG HCO3 (21-25) mmol/L ABG Total CO2 (19-24) mmol/L ABG O2 Saturation (94-97) % ABG Hematocrit (34.0-46.0) % ABG Potassium (3.4-4.5) mmol/L ABG Ionized Calcium (4.5-5.3) mg/dL ABG Glucose (75-99) mg/dL ABG Lactic Acid (0.5-1.6) mmol/L Hemoglobin (11.4-16.0) gm/dL BUN (7-17) mg/dL Creatinine (0.52-1.04) mg/dL Glucose (74-99) mg/dL POC Glucose (mg/dL) 199 H 213 H 193 H (75-99) mg/dL Magnesium (1.6-2.3) mg/dL AST (14-36) U/L Alkaline Phosphatase (38-126) U/L Total Protein (6.3-8.2) g/dL Albumin (3.5-5.0) g/dL Arterial Blood Potassium (3.4-4.5) mmol/L Arterial Blood Glucose (75-99) mg/dL Crossmatch 07/21/20 07/21/20 07/21/20 Range/Units 18:13 18:14 19:07 WBC 11.6 H (3.8-10.6) k/uL RBC 2.52 L (3.80-5.40) m/uL Hgb 7.9 L (11.4-16.0) gm/dL Hct 23.8 L (34.0-46.0) % Plt Count 84 L (150-450) k/uL Neutrophils # 10.2 H (1.3-7.7) k/uL Lymphocytes # 0.9 L (1.0-4.8) k/uL PT (9.0-12.0) sec INR (<1.2) APTT (22.0-30.0) sec ABG pH (7.35-7.45) ABG pO2 (83-108) mmHg ABG HCO3 (21-25) mmol/L ABG Total CO2 (19-24) mmol/L ABG O2 Saturation (94-97) % ABG Hematocrit (34.0-46.0) % ABG Potassium (3.4-4.5) mmol/L ABG Ionized Calcium (4.5-5.3) mg/dL ABG Glucose (75-99) mg/dL ABG Lactic Acid (0.5-1.6) mmol/L Hemoglobin (11.4-16.0) gm/dL BUN (7-17) mg/dL Creatinine (0.52-1.04) mg/dL Glucose (74-99) mg/dL POC Glucose (mg/dL) 186 H 187 H (75-99) mg/dL Magnesium (1.6-2.3) mg/dL AST (14-36) U/L Alkaline Phosphatase (38-126) U/L Total Protein (6.3-8.2) g/dL Albumin (3.5-5.0) g/dL Arterial Blood Potassium (3.4-4.5) mmol/L Arterial Blood Glucose (75-99) mg/dL Crossmatch 07/21/20 07/21/20 07/21/20 Range/Units 19:54 20:00 21:02 WBC 11.5 H (3.8-10.6) k/uL RBC 2.42 L (3.80-5.40) m/uL Hgb 7.5 L (11.4-16.0) gm/dL Hct 23.0 L (34.0-46.0) % Plt Count 92 L (150-450) k/uL Neutrophils # 10.2 H (1.3-7.7) k/uL Lymphocytes # 0.8 L (1.0-4.8) k/uL PT (9.0-12.0) sec INR (<1.2) APTT (22.0-30.0) sec ABG pH (7.35-7.45) ABG pO2 (83-108) mmHg ABG HCO3 (21-25) mmol/L ABG Total CO2 (19-24) mmol/L ABG O2 Saturation (94-97) % ABG Hematocrit (34.0-46.0) % ABG Potassium (3.4-4.5) mmol/L ABG Ionized Calcium (4.5-5.3) mg/dL ABG Glucose (75-99) mg/dL ABG Lactic Acid (0.5-1.6) mmol/L Hemoglobin (11.4-16.0) gm/dL BUN (7-17) mg/dL Creatinine (0.52-1.04) mg/dL Glucose (74-99) mg/dL POC Glucose (mg/dL) 186 H 159 H (75-99) mg/dL Magnesium (1.6-2.3) mg/dL AST (14-36) U/L Alkaline Phosphatase (38-126) U/L Total Protein (6.3-8.2) g/dL Albumin (3.5-5.0) g/dL Arterial Blood Potassium (3.4-4.5) mmol/L Arterial Blood Glucose (75-99) mg/dL Crossmatch Assessment and Plan Assessment: Multivessel coronary artery disease. Status post two-vessel coronary artery bypass graft on 07/21/20 acute systolic CHF exacerbation, ejection fraction 30-35% and moderate MR Acute hypoxic respiratory failure secondary to both non-stemi with chest pain and elevated troponin. Diabetes mellitus 2 Hypertension Hyperlipidemia stage IV chronic kidney disease Ongoing nicotine addiction DVT prophylaxis Plan: this is a pleasant 70 years old female who presents with CHF and non-STEMI. Patient is status post CABG due to multivessel coronary disease. Patient is being continued on lasix IV , aspirin, statins, Imdur and metoprolol. Losartan is on hold due to cKD CT surgery and cardiology is on board. Nephrology is following due to chronic kidney disease. on dopamine drip. will hold oral hypoglycemics and started on insulin regimen. on insulin drip now. Labs and medication were reviewed. Monitor lytes and vitals. DVT and GI prophylaxis. Further recommendations as per clinical course of the patient DVT prophylaxis : Heparin GI Prophylaxis: Pepcid PT/OT: Pending Prognosis is guarded Time with Patient: Greater than 30
[2020-07-22 00:09] LABS: Glucose,Whole Blood 146 mg/dL (75-99)
[2020-07-22] MEDS: ACETAMINOPHEN IV (For NPO) 1,000 MG in EMPTY BAG 1 BAG IVPB SCH (00:15)
[2020-07-22] MEDS: ALBUMIN HUMAN 5% 250 ML in EMPTY BAG 1 BAG IVPB PRN (00:50)
[2020-07-22 01:00] LABS: Glucose,Whole Blood 122 mg/dL (75-99)
[2020-07-22] MEDS: HEPARIN SODIUM,PORCINE/PF 5,000 UNIT/0.5 ML SYRINGE SQ SCH ×3 (01:26→17:49)
[2020-07-22] MEDS: ONDANSETRON 4 MG/2 ML VIAL IVP PRN ×2 (01:29→09:17)
[2020-07-22 01:55] LABS: Glucose,Whole Blood 114 mg/dL (75-99)
[2020-07-22] MEDS ORDERED: HYDROcodone/APAP 5-325MG 1 EACH TAB PO PRN (02:08)
[2020-07-22] MEDS ORDERED: FUROSEMIDE 10 MG/ML 2 ML VIAL IV ONE (02:20)
[2020-07-22 02:56] LABS: Glucose,Whole Blood 151 mg/dL (75-99)
[2020-07-22 04:17] LABS: Glucose,Whole Blood 154 mg/dL (75-99)
[2020-07-22 04:47] LABS: Basophils % (A) 0 %; Eosinophils % (A) 0 %; Lymphocytes # (A) 0.7 k/uL (1.0-4.8); Lymphocytes % (A) 7 %; MCHC 33.5 g/dL (31.0-37.0); MCV 95.5 fL (80.0-100.0); Mean Platelet Volume 8.9; Monocytes # (A) 0.4 k/uL (0-1.0); Monocytes % (A) 3 %; Neutrophils # (A) 9.9 k/uL (1.3-7.7); Neutrophils % (A) 90 %; Platelet Count 88 k/uL (150-450); RDW 13.8 % (11.5-15.5)
[2020-07-22 04:57] LABS: HCT 19.1 % (34.0-46.0); HGB 6.4 gm/dL (11.4-16.0)
[2020-07-22 05:08] LABS: Ionized Calcium 5.2 mg/dL (4.5-5.3)
[2020-07-22 05:11] LABS: Glucose,Whole Blood 141 mg/dL (75-99)
[2020-07-22 05:21] LABS: Albumin 3.7 g/dL (3.5-5.0); Calcium 8.7 mg/dL (8.4-10.2); Magnesium 2.3 mg/dL (1.6-2.3); Potassium 4.2 mmol/L (3.5-5.1); Total Bilirubin 0.7 mg/dL (0.2-1.3); Total Protein 5.3 g/dL (6.3-8.2)
[2020-07-22 06:04] LABS: Glucose,Whole Blood 133 mg/dL (75-99)
[2020-07-22 06:58] LABS: Glucose,Whole Blood 125 mg/dL (75-99)
--- NOTE | 2020-07-22 07:55 | XR ---
EXAMINATION TYPE: XR chest 1V portable DATE OF EXAM: 07/22/2020 COMPARISON: 07/21/2020 HISTORY: Postop TECHNIQUE: Single frontal view of the chest is obtained. FINDINGS: ET and NG tube have been removed. Chest tube and central lines stable. Mediastinal drain n oted. Diffuse interstitial pattern with bilateral consolidation and small effusion. Postoperative fermin nge and cardiomegaly. No sizable pneumothorax. IMPRESSION: 1. Postsurgical changes correlate for bilateral infiltrate, pleural effusion and venous congestion.
[2020-07-22 07:58] LABS: Glucose,Whole Blood 107 mg/dL (75-99)
[2020-07-22] MEDS: IPRATROPIUM-ALBUTEROL 3 ML NEB INHALATION SCH ×4 (07:58→19:44)
[2020-07-22] MEDS: MILRINONE-D5W PMX 20 MG in DEXTROSE/WATER 1 100ML.BAG IV SCH ×2 (08:17→16:10)
[2020-07-22] MEDS: NOREPINEPHRINE 4 MG in SODIUM CHLORIDE 0.9% 250 ML IV SCH (08:26)
--- NOTE | 2020-07-22 08:34 | P.PN ---
Subjective Progress Note Date: 07/22/20 Principal diagnosis: Symptomatic diffuse multivessel coronary artery disease, non-STEMI this admission, acute on chronic systolic congestive heart failure, EF 30-35%, moderate mitral valve regurgitation, functional. Previous medical history of evidence of old anterior wall myocardial infarction, chronic kidney disease stage IV, diabetes mellitus type 2, hypertension, hyperlipidemia, lifetime nonsmoker with severe obstruction and preoperative FEV1 41% of predicted, obesity, and family history of early onset coronary artery disease with her father having a myocardial infarction in his mid 40s POD #1 double vessel coronary artery bypass grafting using the left internal loida terrell artery to left anterior descending artery, reverse saphenous vein graft from the aorta to the right coronary artery, mitral valve repair with reduction posterior annuloplasty using 26 mm AnnuloFlex band, exclusion of the left atrial appendage using a 35 mm AtriClip, endoscopic harvesting of the left greater saphenous vein from the groin to below the knee level, intraoperative graft flow measurements using the Flightfoxstim system, intraoperative transesophageal echocardiogram and epi-aortic scanning. Postoperative acute blood loss anemia and thrombocytopenia, expected given hemodilution and cardiopulmonary bypass pump Atrial fibrillation with rapid ventricular response, known common occurrence after open heart surgery, currently sinus The patient's currently sitting up in bed in no acute distress. She was successfully extubated at 22:43 last night. Does complain of some post surgical pain which is controlled with current medication regimen, denies shortness of breath. Feels very weak. Remains atrial paced at 80 bpm, underlying rhythm sinus bradycardia in the high 50s. Hemodynamically stable on IV Primacor and amiodarone. Did have low urine output last night, was initiated on IV dopamine, patient became tachycardic and had atrial fibrillation with rapid ventricular response, dopamine was discontinued and IV amiodarone was initiated with return to underlying sinus rhythm. Hemoglobin this morning 6.4, about to receive 1 unit packed red blood cells. Right internal jugular Gaines/Cordis, right radial arterial line, mediastinal and left pleural chest tubes all remaining present. Urine output did start to hand picker again this morning. Was nauseous with small amount of clear emesis this morning. No other new concerns. Objective - Vital Signs Vital signs: Vital Signs Temp 98.1 F 07/21/20 20:00 Pulse 80 07/22/20 07:00 Resp 28 H 07/22/20 07:00 BP 124/53 07/22/20 07:00 Pulse Ox 91 L 07/22/20 07:00 Intake & Output 07/21/20 07/22/20 07/22/20 18:59 06:59 18:59 Intake Total 494.370 0839.718 124.596 Output Total 1793 507 42 Balance -7992.529 4577.718 82.596 Weight 86.5 kg 91.1 kg Intake: IV 605.0 1626.0 60.5 Albumin Human 5% 500 ml 250 750 In Empty Bag 1 bag @ 250 mls/hr IVPB ONCE ONE Rx#: [id number] Cardiac Output 40 150 Nitroglycerin-D5w Pmx 50 6.0 1.5 mg In Dextrose/Water 1 250ml.bag @ 5 MCG/MIN 1.5 mls/hr IV .Q24H [facility] Rx#: [id number] Nitroglycerine 16.5 1.5 Pressure Bag 6 108 9 Sodium Chloride 0.9% 1, 200 600 50 000 ml @ 50 mls/hr IV . Q20H [facility] Rx#:[id number] ceFAZolin 2 gm In Sodium 50 Chloride 0.9% 50 ml @ 100 mls/hr IVPB ONCE ONE Rx# :[id number] Intake, IV Titration 51.020 434.718 64.096 Amount ACETAMINOPHEN IV (For NPO 100 ) 1,000 mg In Empty Bag 1 bag @ 400 mls/hr IVPB Q6HR [facility] Rx#:[id number] Clevidipine Butyrate 25 7.166 5.233 mg In Empty Bag 1 bag @ 1 MG/HR 2 mls/hr IV .Q24H [facility] Rx#:[id number] Dextrose 5% in Water 100 150 ml @ 618 mls/hr IV .Q10M PRN with Amiodarone 150 mg Rx#:[id number] Insulin Regular 100 unit 11.531 72.654 In Sodium Chloride 0.9% 100 ml @ Per Protocol IV .Q0M [facility] Rx#:[id number] Milrinone-D5w Pmx 20 mg 56.831 64.096 In Dextrose/Water 1 100ml .bag @ 0.15 MCG/KG/MIN 3. 893 mls/hr IV .Q24H [facility] Rx#:[id number] Norepinephrine 4 mg In 2.307 Sodium Chloride 0.9% 250 ml @ 0.05 MCG/KG/MIN 16. 478 mls/hr IV .[id number] [facility] Rx#:[id number] ceFAZolin 2 gm In Sodium 50 Chloride 0.9% 50 ml @ 100 mls/hr IVPB ONCE ONE Rx# :[id number] propofoL 1,000 mg In 30.016 Empty Bag 1 bag @ Titrate IV .Q0M [facility] Rx#: [id number] Output: Chest Tube Drainage 318 337 30 Chest Tube Left Anterior 162 83 20 Chest Mediastinal 156 254 10 Gastric Drainage 50 Urine 425 170 12 Estimated Blood Loss 1000 Other: Voiding Method Indwelling Catheter Indwelling Catheter ABP, PAP, CO, CI - Last Documented Arterial Blood Pressure 132/44 Pulmonary Artery Pressure 43/18 Cardiac Output 6.3 Cardiac Index 3.3 - Exam CONSTITUTIONAL: Appears comfortable, cooperative, no acute distress RESPIRATORY: Lungs sounds diminished bilaterally. Respirations even, nonlabored. Currently on 2 L nasal cannula with oxygen saturation 91%. Able to achieve 500-750 mL on incentive spirometry. Strong cough. CARDIOVASCULAR: S1, S2 present. Regular rate and rhythm, atrial paced on telemetry, underlying rhythm sinus bradycardia in the high 50s. Sternum stable. Palpable peripheral pulses bilaterally. Bilateral lower extremity edema present. No calf pain or tenderness noted. Heart hugger in place with patient demonstrating appropriate use. Antiembolism stockings, SCDs present. GASTROINTESTINAL: Abdomen soft, nontender, nondistended. Hypoactive bowel sounds present 4 quadrants. Tolerating clear liquids. Negative flatus GENITOURINARY: Tapia present draining clear, yellow urine. Output overnight down to 0-5 mL per hour last night, currently 20-35 mL/h INTEGUMENTARY: Skin is warm and dry, pale. Anterior chest incision well approximated and covered with dry intact dressing. EVH site well approximated without redness or drainage. NEUROLOGIC: Cranial nerves II through XII intact MUSKULOSKELETAL: Able to move all extremities, strength equal but week bilaterally PSYCHIATRIC: Alert and oriented to person place and time, appropriate affect, intact judgment and insight INVASIVE LINES AND TUBES: Mediastinal/left pleural chest tubes present and connected to wall suction, no air leaks present. Mediastinal tube with 120 mL serosanguineous drainage overnight, 400 mL since surgery. Left pleural chest tube with 75 mL serosanguineous drainage overnight, 280 mL since surgery. Atrial epicardial pacemaker wires present, connected to generator, rate 80 bpm. Right internal jugular Gaines/Cordis, right radial arterial line present. Last CO/CI 6.3/3.3, PA 43/18, CVP 15. - Allied health notes Allied health notes reviewed: nursing - Labs CBC & Chem 7: 07/22/20 04:20 07/22/20 04:20 Labs: Abnormal Lab Results - Last 24 Hours (Table) 07/20/20 07/21/20 07/21/20 Range/Units 07:41 08:46 10:15 WBC (3.8-10.6) k/uL RBC (3.80-5.40) m/uL Hgb (11.4-16.0) gm/dL Hct (34.0-46.0) % Plt Count (150-450) k/uL Neutrophils # (1.3-7.7) k/uL Lymphocytes # (1.0-4.8) k/uL PT (9.0-12.0) sec INR (<1.2) APTT (22.0-30.0) sec ABG pH 7.49 H 7.46 H (7.35-7.45) ABG pO2 388 H 155 H (83-108) mmHg ABG HCO3 28 H 27 H (21-25) mmol/L ABG Total CO2 30 H 28 H (19-24) mmol/L ABG O2 Saturation 100.0 H 99.8 H (94-97) % ABG Hematocrit 29 L 29 L (34.0-46.0) % ABG Potassium (3.4-4.5) mmol/L ABG Ionized Calcium (4.5-5.3) mg/dL ABG Glucose 139 H 155 H (75-99) mg/dL ABG Lactic Acid (0.5-1.6) mmol/L Hemoglobin 9.5 L 9.4 L (11.4-16.0) gm/dL BUN (7-17) mg/dL Creatinine (0.52-1.04) mg/dL Glucose (74-99) mg/dL POC Glucose (mg/dL) (75-99) mg/dL Magnesium (1.6-2.3) mg/dL AST (14-36) U/L Alkaline Phosphatase (38-126) U/L Total Protein (6.3-8.2) g/dL Albumin (3.5-5.0) g/dL Arterial Blood Potassium (3.4-4.5) mmol/L Arterial Blood Glucose 139 H 155 H (75-99) mg/dL Crossmatch See Detail 07/21/20 07/21/20 07/21/20 Range/Units 11:10 11:43 12:39 WBC (3.8-10.6) k/uL RBC (3.80-5.40) m/uL Hgb (11.4-16.0) gm/dL Hct (34.0-46.0) % Plt Count (150-450) k/uL Neutrophils # (1.3-7.7) k/uL Lymphocytes # (1.0-4.8) k/uL PT (9.0-12.0) sec INR (<1.2) APTT (22.0-30.0) sec ABG pH 7.46 H (7.35-7.45) ABG pO2 >420 H 344 H 254 H (83-108) mmHg ABG HCO3 26 H 26 H 26 H (21-25) mmol/L ABG Total CO2 27 H 27 H 27 H (19-24) mmol/L ABG O2 Saturation 100.0 H 100.0 H 100.0 H (94-97) % ABG Hematocrit 23 L 22 L 22 L (34.0-46.0) % ABG Potassium 4.7 H (3.4-4.5) mmol/L ABG Ionized Calcium 4.1 L 4.1 L 4.2 L (4.5-5.3) mg/dL ABG Glucose 162 H 170 H 204 H (75-99) mg/dL ABG Lactic Acid (0.5-1.6) mmol/L Hemoglobin 7.6 L 7.0 L* 7.0 L* (11.4-16.0) gm/dL BUN (7-17) mg/dL Creatinine (0.52-1.04) mg/dL Glucose (74-99) mg/dL POC Glucose (mg/dL) (75-99) mg/dL Magnesium (1.6-2.3) mg/dL AST (14-36) U/L Alkaline Phosphatase (38-126) U/L Total Protein (6.3-8.2) g/dL Albumin (3.5-5.0) g/dL Arterial Blood Potassium 4.7 H (3.4-4.5) mmol/L Arterial Blood Glucose 162 H 170 H 204 H (75-99) mg/dL Crossmatch 07/21/20 07/21/20 07/21/20 Range/Units 13:06 14:30 14:30 WBC 16.4 H (3.8-10.6) k/uL RBC 2.52 L (3.80-5.40) m/uL Hgb 7.9 L D (11.4-16.0) gm/dL Hct 23.9 L (34.0-46.0) % Plt Count 109 L D (150-450) k/uL Neutrophils # 14.4 H (1.3-7.7) k/uL Lymphocytes # (1.0-4.8) k/uL PT 13.5 H (9.0-12.0) sec INR 1.3 H (<1.2) APTT 31.5 H (22.0-30.0) sec ABG pH (7.35-7.45) ABG pO2 >420 H (83-108) mmHg ABG HCO3 27 H (21-25) mmol/L ABG Total CO2 28 H (19-24) mmol/L ABG O2 Saturation 100.0 H (94-97) % ABG Hematocrit 21 L (34.0-46.0) % ABG Potassium 4.7 H (3.4-4.5) mmol/L ABG Ionized Calcium 4.2 L (4.5-5.3) mg/dL ABG Glucose 189 H (75-99) mg/dL ABG Lactic Acid (0.5-1.6) mmol/L Hemoglobin 6.7 L* (11.4-16.0) gm/dL BUN (7-17) mg/dL Creatinine (0.52-1.04) mg/dL Glucose (74-99) mg/dL POC Glucose (mg/dL) (75-99) mg/dL Magnesium (1.6-2.3) mg/dL AST (14-36) U/L Alkaline Phosphatase (38-126) U/L Total Protein (6.3-8.2) g/dL Albumin (3.5-5.0) g/dL Arterial Blood Potassium 4.7 H (3.4-4.5) mmol/L Arterial Blood Glucose 189 H (75-99) mg/dL Crossmatch 07/21/20 07/21/20 07/21/20 Range/Units 14:30 14:38 15:29 WBC (3.8-10.6) k/uL RBC (3.80-5.40) m/uL Hgb (11.4-16.0) gm/dL Hct (34.0-46.0) % Plt Count (150-450) k/uL Neutrophils # (1.3-7.7) k/uL Lymphocytes # (1.0-4.8) k/uL PT (9.0-12.0) sec INR (<1.2) APTT (22.0-30.0) sec ABG pH (7.35-7.45) ABG pO2 169 H (83-108) mmHg ABG HCO3 26 H (21-25) mmol/L ABG Total CO2 27 H (19-24) mmol/L ABG O2 Saturation 99.9 H (94-97) % ABG Hematocrit 25 L (34.0-46.0) % ABG Potassium (3.4-4.5) mmol/L ABG Ionized Calcium (4.5-5.3) mg/dL ABG Glucose 195 H (75-99) mg/dL ABG Lactic Acid 1.7 H (0.5-1.6) mmol/L Hemoglobin 8.3 L (11.4-16.0) gm/dL BUN 24 H (7-17) mg/dL Creatinine 1.46 H (0.52-1.04) mg/dL Glucose 188 H (74-99) mg/dL POC Glucose (mg/dL) 199 H (75-99) mg/dL Magnesium 2.6 H (1.6-2.3) mg/dL AST 62 H (14-36) U/L Alkaline Phosphatase 33 L (38-126) U/L Total Protein 5.3 L (6.3-8.2) g/dL Albumin 3.2 L (3.5-5.0) g/dL Arterial Blood Potassium (3.4-4.5) mmol/L Arterial Blood Glucose 195 H (75-99) mg/dL Crossmatch 07/21/20 07/21/20 07/21/20 Range/Units 16:00 17:08 18:13 WBC (3.8-10.6) k/uL RBC (3.80-5.40) m/uL Hgb (11.4-16.0) gm/dL Hct (34.0-46.0) % Plt Count (150-450) k/uL Neutrophils # (1.3-7.7) k/uL Lymphocytes # (1.0-4.8) k/uL PT (9.0-12.0) sec INR (<1.2) APTT (22.0-30.0) sec ABG pH (7.35-7.45) ABG pO2 (83-108) mmHg ABG HCO3 (21-25) mmol/L ABG Total CO2 (19-24) mmol/L ABG O2 Saturation (94-97) % ABG Hematocrit (34.0-46.0) % ABG Potassium (3.4-4.5) mmol/L ABG Ionized Calcium (4.5-5.3) mg/dL ABG Glucose (75-99) mg/dL ABG Lactic Acid (0.5-1.6) mmol/L Hemoglobin (11.4-16.0) gm/dL BUN (7-17) mg/dL Creatinine (0.52-1.04) mg/dL Glucose (74-99) mg/dL POC Glucose (mg/dL) 213 H 193 H 186 H (75-99) mg/dL Magnesium (1.6-2.3) mg/dL AST (14-36) U/L Alkaline Phosphatase (38-126) U/L Total Protein (6.3-8.2) g/dL Albumin (3.5-5.0) g/dL Arterial Blood Potassium (3.4-4.5) mmol/L Arterial Blood Glucose (75-99) mg/dL Crossmatch 07/21/20 07/21/20 07/21/20 Range/Units 18:14 19:07 19:54 WBC 11.6 H (3.8-10.6) k/uL RBC 2.52 L (3.80-5.40) m/uL Hgb 7.9 L (11.4-16.0) gm/dL Hct 23.8 L (34.0-46.0) % Plt Count 84 L (150-450) k/uL Neutrophils # 10.2 H (1.3-7.7) k/uL Lymphocytes # 0.9 L (1.0-4.8) k/uL PT (9.0-12.0) sec INR (<1.2) APTT (22.0-30.0) sec ABG pH (7.35-7.45) ABG pO2 (83-108) mmHg ABG HCO3 (21-25) mmol/L ABG Total CO2 (19-24) mmol/L ABG O2 Saturation (94-97) % ABG Hematocrit (34.0-46.0) % ABG Potassium (3.4-4.5) mmol/L ABG Ionized Calcium (4.5-5.3) mg/dL ABG Glucose (75-99) mg/dL ABG Lactic Acid (0.5-1.6) mmol/L Hemoglobin (11.4-16.0) gm/dL BUN (7-17) mg/dL Creatinine (0.52-1.04) mg/dL Glucose (74-99) mg/dL POC Glucose (mg/dL) 187 H 186 H (75-99) mg/dL Magnesium (1.6-2.3) mg/dL AST (14-36) U/L Alkaline Phosphatase (38-126) U/L Total Protein (6.3-8.2) g/dL Albumin (3.5-5.0) g/dL Arterial Blood Potassium (3.4-4.5) mmol/L Arterial Blood Glucose (75-99) mg/dL Crossmatch 07/21/20 07/21/20 07/21/20 Range/Units 20:00 21:02 21:54 WBC 11.5 H (3.8-10.6) k/uL RBC 2.42 L (3.80-5.40) m/uL Hgb 7.5 L (11.4-16.0) gm/dL Hct 23.0 L (34.0-46.0) % Plt Count 92 L (150-450) k/uL Neutrophils # 10.2 H (1.3-7.7) k/uL Lymphocytes # 0.8 L (1.0-4.8) k/uL PT (9.0-12.0) sec INR (<1.2) APTT (22.0-30.0) sec ABG pH (7.35-7.45) ABG pO2 (83-108) mmHg ABG HCO3 (21-25) mmol/L ABG Total CO2 (19-24) mmol/L ABG O2 Saturation (94-97) % ABG Hematocrit (34.0-46.0) % ABG Potassium (3.4-4.5) mmol/L ABG Ionized Calcium (4.5-5.3) mg/dL ABG Glucose (75-99) mg/dL ABG Lactic Acid (0.5-1.6) mmol/L Hemoglobin (11.4-16.0) gm/dL BUN (7-17) mg/dL Creatinine (0.52-1.04) mg/dL Glucose (74-99) mg/dL POC Glucose (mg/dL) 159 H 165 H (75-99) mg/dL Magnesium (1.6-2.3) mg/dL AST (14-36) U/L Alkaline Phosphatase (38-126) U/L Total Protein (6.3-8.2) g/dL Albumin (3.5-5.0) g/dL Arterial Blood Potassium (3.4-4.5) mmol/L Arterial Blood Glucose (75-99) mg/dL Crossmatch 07/21/20 07/21/20 07/22/20 Range/Units 22:01 23:04 00:08 WBC (3.8-10.6) k/uL RBC (3.80-5.40) m/uL Hgb (11.4-16.0) gm/dL Hct (34.0-46.0) % Plt Count (150-450) k/uL Neutrophils # (1.3-7.7) k/uL Lymphocytes # (1.0-4.8) k/uL PT (9.0-12.0) sec INR (<1.2) APTT (22.0-30.0) sec ABG pH (7.35-7.45) ABG pO2 139 H (83-108) mmHg ABG HCO3 (21-25) mmol/L ABG Total CO2 26 H (19-24) mmol/L ABG O2 Saturation 99.5 H (94-97) % ABG Hematocrit (34.0-46.0) % ABG Potassium (3.4-4.5) mmol/L ABG Ionized Calcium (4.5-5.3) mg/dL ABG Glucose (75-99) mg/dL ABG Lactic Acid (0.5-1.6) mmol/L Hemoglobin (11.4-16.0) gm/dL BUN (7-17) mg/dL Creatinine (0.52-1.04) mg/dL Glucose (74-99) mg/dL POC Glucose (mg/dL) 171 H 146 H (75-99) mg/dL Magnesium (1.6-2.3) mg/dL AST (14-36) U/L Alkaline Phosphatase (38-126) U/L Total Protein (6.3-8.2) g/dL Albumin (3.5-5.0) g/dL Arterial Blood Potassium (3.4-4.5) mmol/L Arterial Blood Glucose (75-99) mg/dL Crossmatch 07/22/20 07/22/20 07/22/20 Range/Units 00:58 01:53 02:54 WBC (3.8-10.6) k/uL RBC (3.80-5.40) m/uL Hgb (11.4-16.0) gm/dL Hct (34.0-46.0) % Plt Count (150-450) k/uL Neutrophils # (1.3-7.7) k/uL Lymphocytes # (1.0-4.8) k/uL PT (9.0-12.0) sec INR (<1.2) APTT (22.0-30.0) sec ABG pH (7.35-7.45) ABG pO2 (83-108) mmHg ABG HCO3 (21-25) mmol/L ABG Total CO2 (19-24) mmol/L ABG O2 Saturation (94-97) % ABG Hematocrit (34.0-46.0) % ABG Potassium (3.4-4.5) mmol/L ABG Ionized Calcium (4.5-5.3) mg/dL ABG Glucose (75-99) mg/dL ABG Lactic Acid (0.5-1.6) mmol/L Hemoglobin (11.4-16.0) gm/dL BUN (7-17) mg/dL Creatinine (0.52-1.04) mg/dL Glucose (74-99) mg/dL POC Glucose (mg/dL) 122 H 114 H 151 H (75-99) mg/dL Magnesium (1.6-2.3) mg/dL AST (14-36) U/L Alkaline Phosphatase (38-126) U/L Total Protein (6.3-8.2) g/dL Albumin (3.5-5.0) g/dL Arterial Blood Potassium (3.4-4.5) mmol/L Arterial Blood Glucose (75-99) mg/dL Crossmatch 07/22/20 07/22/20 07/22/20 Range/Units 04:15 04:20 04:20 WBC 11.0 H (3.8-10.6) k/uL RBC 2.00 L (3.80-5.40) m/uL Hgb 6.4 L* (11.4-16.0) gm/dL Hct 19.1 L* (34.0-46.0) % Plt Count 88 L (150-450) k/uL Neutrophils # 9.9 H (1.3-7.7) k/uL Lymphocytes # 0.7 L (1.0-4.8) k/uL PT (9.0-12.0) sec INR (<1.2) APTT (22.0-30.0) sec ABG pH (7.35-7.45) ABG pO2 (83-108) mmHg ABG HCO3 (21-25) mmol/L ABG Total CO2 (19-24) mmol/L ABG O2 Saturation (94-97) % ABG Hematocrit (34.0-46.0) % ABG Potassium (3.4-4.5) mmol/L ABG Ionized Calcium (4.5-5.3) mg/dL ABG Glucose (75-99) mg/dL ABG Lactic Acid (0.5-1.6) mmol/L Hemoglobin (11.4-16.0) gm/dL BUN 27 H (7-17) mg/dL Creatinine 1.99 H (0.52-1.04) mg/dL Glucose 141 H (74-99) mg/dL POC Glucose (mg/dL) 154 H (75-99) mg/dL Magnesium (1.6-2.3) mg/dL AST 64 H (14-36) U/L Alkaline Phosphatase (38-126) U/L Total Protein 5.3 L (6.3-8.2) g/dL Albumin (3.5-5.0) g/dL Arterial Blood Potassium (3.4-4.5) mmol/L Arterial Blood Glucose (75-99) mg/dL Crossmatch 07/22/20 07/22/20 07/22/20 Range/Units 05:09 06:03 06:56 WBC (3.8-10.6) k/uL RBC (3.80-5.40) m/uL Hgb (11.4-16.0) gm/dL Hct (34.0-46.0) % Plt Count (150-450) k/uL Neutrophils # (1.3-7.7) k/uL Lymphocytes # (1.0-4.8) k/uL PT (9.0-12.0) sec INR (<1.2) APTT (22.0-30.0) sec ABG pH (7.35-7.45) ABG pO2 (83-108) mmHg ABG HCO3 (21-25) mmol/L ABG Total CO2 (19-24) mmol/L ABG O2 Saturation (94-97) % ABG Hematocrit (34.0-46.0) % ABG Potassium (3.4-4.5) mmol/L ABG Ionized Calcium (4.5-5.3) mg/dL ABG Glucose (75-99) mg/dL ABG Lactic Acid (0.5-1.6) mmol/L Hemoglobin (11.4-16.0) gm/dL BUN (7-17) mg/dL Creatinine (0.52-1.04) mg/dL Glucose (74-99) mg/dL POC Glucose (mg/dL) 141 H 133 H 125 H (75-99) mg/dL Magnesium (1.6-2.3) mg/dL AST (14-36) U/L Alkaline Phosphatase (38-126) U/L Total Protein (6.3-8.2) g/dL Albumin (3.5-5.0) g/dL Arterial Blood Potassium (3.4-4.5) mmol/L Arterial Blood Glucose (75-99) mg/dL Crossmatch - Imaging and Cardiology Chest x-ray: image reviewed Assessment and Plan Assessment: 1. Symptomatic diffusely calcified multivessel coronary artery disease, non- STEMI this admission, status post 2 vessel CABG 2. Acute on chronic systolic congestive heart failure, EF 30-35% 3. Moderate mitral valve regurgitation on SLOANE, status post 26 mm AnnuloFlex band 4. Dyspnea on admission, secondary to acute heart failure, proBNP on admission 14,500 5. Chronic kidney disease stage IV, baseline creatinine around 1.9 per nephrology 6. Diabetes mellitus type 2, hemoglobin A1c is 8.7% 7. Hypertension 8. Hyperlipidemia, treated, cholesterol 157, LDL 75 9. Lifetime nonsmoker 10. Severe obstruction, preoperative FEV1 41% of predicted with moderate increased operative risk per pulmonology 11. Family history of early onset coronary artery disease with her father having a myocardial infarction in his mid 40s 12. Evidence of old anterior wall myocardial infarction 13. Postoperative acute blood loss anemia and thrombocytopenia, expected 14. Atrial fibrillation with rapid ventricular response, currently sinus Plan: 1. Continue to optimize medical management with low dose aspirin, statin, Plavix. Will hold beta charity for now due to underlying bradycardia, will start and increase when able 2. Continue amiodarone for A. fib prophylaxis. Will transition to oral this evening. No anticoagulation at this point 3. Wean oxygen as tolerated. Encourage incentive spirometry use 10x every hour while, bronchodilators per pulmonology 4. Increase activity, ambulate as tolerated. PT/OT/cardiac rehab consulted 5. Will monitor daily labs and CXR. Electrolyte replacement per protocol. Will transfuse 1 unit PRBC this AM 6. Insulin management per primary care. Patient need tight blood sugar control to promote healing, union of the sternal bone 7. GI/DVT prophylaxis 8. Continue low dose primacor, Gaines 9. Continue chest tubes for another 24 hours 10. Continue tapia catheter for another 24 hours for strict accurate I/Os. Daily weights 11. Pain control with current medication regimen. No toradol due to CKD 12. More recommendations to follow Time with Patient: Greater than 30
[2020-07-22] MEDS: AMIODARONE 450 MG in DEXTROSE 5% IN WATER 250 ML IV PRN ×4 (08:38→23:11)
[2020-07-22 08:53] LABS: Glucose,Whole Blood 110 mg/dL (75-99)
[2020-07-22] MEDS ORDERED: ASPIRIN 325 MG TAB PO SCH (09:00)
[2020-07-22] MEDS ORDERED: PANTOPRAZOLE 40 MG/10 ML VIAL IVP SCH (09:00)
[2020-07-22] MEDS ORDERED: bisacodyL 10 MG SUPP RECTAL PRN (09:00)
[2020-07-22] MEDS ORDERED: MAGNESIUM HYDROXIDE 2,400 MG/10 ML CUP PO PRN (09:00)
[2020-07-22] MEDS ORDERED: METOPROLOL TARTRATE 12.5 MG TAB PO SCH (09:00)
[2020-07-22] MEDS ORDERED: CLOPIDOGREL 75 MG TAB PO SCH (09:00)
[2020-07-22] MEDS: HYDROcodone/APAP 5-325MG 1 EACH TAB PO PRN ×3 (09:34→20:36)
[2020-07-22 10:12] LABS: Glucose,Whole Blood 146 mg/dL (75-99)
[2020-07-22] MEDS ORDERED: FUROSEMIDE 10 MG/ML 4 ML VIAL IV STA (10:14)
--- NOTE | 2020-07-22 10:24 | P.PN ---
Subjective Patient is seen in follow-up for chronic kidney disease. Patient has chronic kidney disease stage IV with baseline creatinine in the range of 1.7-2. She underwent CABG on July 21. Went into A. fib with RVR last night and is currently on amiodarone drip. She is also receiving blood transfusions for hemoglobin of 6.4 this morning. She is on Primacor drip. Extubated. Vomited this morning. Vital signs are stable. General: The patient appeared well nourished and normally developed. HEENT: On nasal cannula. LUNGS: Breath sounds decreased. HEART: Rate and Rhythm are regular. ABDOMEN: Soft, no distention. EXTREMITITES: 1+ edema. Objective - Vital Signs Vital signs: Vital Signs Temp 97.5 F L 07/22/20 08:42 Pulse 80 07/22/20 10:00 Resp 22 07/22/20 10:00 BP 138/50 07/22/20 10:00 Pulse Ox 95 07/22/20 10:00 Intake & Output 07/21/20 07/22/20 07/22/20 18:59 06:59 18:59 Intake Total 108.523 7663.718 629.794 Output Total 1793 507 142 Balance -7426.702 6296.718 487.794 Weight 86.5 kg 91.1 kg Intake: IV 605.0 1626.0 254.5 Albumin Human 5% 500 ml 250 750 In Empty Bag 1 bag @ 250 mls/hr IVPB ONCE ONE Rx#: [id number] Cardiac Output 40 150 20 Nitroglycerin-D5w Pmx 50 6.0 1.5 mg In Dextrose/Water 1 250ml.bag @ 5 MCG/MIN 1.5 mls/hr IV .Q24H [facility] Rx#: [id number] Nitroglycerine 16.5 1.5 Pressure Bag 6 108 33 Sodium Chloride 0.9% 1, 200 600 200 000 ml @ 20 mls/hr IV . Q24H [facility] Rx#:[id number] ceFAZolin 2 gm In Sodium 50 Chloride 0.9% 50 ml @ 100 mls/hr IVPB ONCE ONE Rx# :[id number] Intake, IV Titration 51.020 434.718 79.294 Amount ACETAMINOPHEN IV (For NPO 100 ) 1,000 mg In Empty Bag 1 bag @ 400 mls/hr IVPB Q6HR [facility] Rx#:[id number] Clevidipine Butyrate 25 7.166 5.233 mg In Empty Bag 1 bag @ 1 MG/HR 2 mls/hr IV .Q24H [facility] Rx#:[id number] Dextrose 5% in Water 100 150 ml @ 618 mls/hr IV .Q10M PRN with Amiodarone 150 mg Rx#:[id number] Insulin Regular 100 unit 11.531 72.654 10.462 In Sodium Chloride 0.9% 100 ml @ Per Protocol IV .Q0M [facility] Rx#:[id number] Milrinone-D5w Pmx 20 mg 56.831 68.832 In Dextrose/Water 1 100ml .bag @ 0.15 MCG/KG/MIN 3. 893 mls/hr IV .Q24H [facility] Rx#:[id number] Norepinephrine 4 mg In 2.307 Sodium Chloride 0.9% 250 ml @ 0.05 MCG/KG/MIN 16. 478 mls/hr IV .[id number] [facility] Rx#:[id number] ceFAZolin 2 gm In Sodium 50 Chloride 0.9% 50 ml @ 100 mls/hr IVPB ONCE ONE Rx# :[id number] propofoL 1,000 mg In 30.016 Empty Bag 1 bag @ Titrate IV .Q0M [facility] Rx#: [id number] Blood Product 296 Rc Pheresis 2 As3 Unit 296 [id number] Output: Chest Tube Drainage 318 337 110 Chest Tube Left Anterior 162 83 30 Chest Mediastinal 156 254 80 Gastric Drainage 50 Urine 425 170 32 Estimated Blood Loss 1000 Other: Voiding Method Indwelling Catheter Indwelling Catheter ABP, PAP, CO, CI - Last Documented Arterial Blood Pressure 98/73 Pulmonary Artery Pressure 60/31 Cardiac Output 5.9 Cardiac Index 3.1 - Labs CBC & Chem 7: 07/22/20 04:20 07/22/20 04:20 Labs: Abnormal Lab Results - Last 24 Hours (Table) 07/20/20 07/21/20 07/21/20 Range/Units 07:41 08:46 10:15 WBC (3.8-10.6) k/uL RBC (3.80-5.40) m/uL Hgb (11.4-16.0) gm/dL Hct (34.0-46.0) % Plt Count (150-450) k/uL Neutrophils # (1.3-7.7) k/uL Lymphocytes # (1.0-4.8) k/uL PT (9.0-12.0) sec INR (<1.2) APTT (22.0-30.0) sec ABG pH 7.49 H 7.46 H (7.35-7.45) ABG pO2 388 H 155 H (83-108) mmHg ABG HCO3 28 H 27 H (21-25) mmol/L ABG Total CO2 30 H 28 H (19-24) mmol/L ABG O2 Saturation 100.0 H 99.8 H (94-97) % ABG Hematocrit 29 L 29 L (34.0-46.0) % ABG Potassium (3.4-4.5) mmol/L ABG Ionized Calcium (4.5-5.3) mg/dL ABG Glucose 139 H 155 H (75-99) mg/dL ABG Lactic Acid (0.5-1.6) mmol/L Hemoglobin 9.5 L 9.4 L (11.4-16.0) gm/dL BUN (7-17) mg/dL Creatinine (0.52-1.04) mg/dL Glucose (74-99) mg/dL POC Glucose (mg/dL) (75-99) mg/dL Magnesium (1.6-2.3) mg/dL AST (14-36) U/L Alkaline Phosphatase (38-126) U/L Total Protein (6.3-8.2) g/dL Albumin (3.5-5.0) g/dL Arterial Blood Potassium (3.4-4.5) mmol/L Arterial Blood Glucose 139 H 155 H (75-99) mg/dL Crossmatch See Detail 07/21/20 07/21/20 07/21/20 Range/Units 11:10 11:43 12:39 WBC (3.8-10.6) k/uL RBC (3.80-5.40) m/uL Hgb (11.4-16.0) gm/dL Hct (34.0-46.0) % Plt Count (150-450) k/uL Neutrophils # (1.3-7.7) k/uL Lymphocytes # (1.0-4.8) k/uL PT (9.0-12.0) sec INR (<1.2) APTT (22.0-30.0) sec ABG pH 7.46 H (7.35-7.45) ABG pO2 >420 H 344 H 254 H (83-108) mmHg ABG HCO3 26 H 26 H 26 H (21-25) mmol/L ABG Total CO2 27 H 27 H 27 H (19-24) mmol/L ABG O2 Saturation 100.0 H 100.0 H 100.0 H (94-97) % ABG Hematocrit 23 L 22 L 22 L (34.0-46.0) % ABG Potassium 4.7 H (3.4-4.5) mmol/L ABG Ionized Calcium 4.1 L 4.1 L 4.2 L (4.5-5.3) mg/dL ABG Glucose 162 H 170 H 204 H (75-99) mg/dL ABG Lactic Acid (0.5-1.6) mmol/L Hemoglobin 7.6 L 7.0 L* 7.0 L* (11.4-16.0) gm/dL BUN (7-17) mg/dL Creatinine (0.52-1.04) mg/dL Glucose (74-99) mg/dL POC Glucose (mg/dL) (75-99) mg/dL Magnesium (1.6-2.3) mg/dL AST (14-36) U/L Alkaline Phosphatase (38-126) U/L Total Protein (6.3-8.2) g/dL Albumin (3.5-5.0) g/dL Arterial Blood Potassium 4.7 H (3.4-4.5) mmol/L Arterial Blood Glucose 162 H 170 H 204 H (75-99) mg/dL Crossmatch 07/21/20 07/21/20 07/21/20 Range/Units 13:06 14:30 14:30 WBC 16.4 H (3.8-10.6) k/uL RBC 2.52 L (3.80-5.40) m/uL Hgb 7.9 L D (11.4-16.0) gm/dL Hct 23.9 L (34.0-46.0) % Plt Count 109 L D (150-450) k/uL Neutrophils # 14.4 H (1.3-7.7) k/uL Lymphocytes # (1.0-4.8) k/uL PT 13.5 H (9.0-12.0) sec INR 1.3 H (<1.2) APTT 31.5 H (22.0-30.0) sec ABG pH (7.35-7.45) ABG pO2 >420 H (83-108) mmHg ABG HCO3 27 H (21-25) mmol/L ABG Total CO2 28 H (19-24) mmol/L ABG O2 Saturation 100.0 H (94-97) % ABG Hematocrit 21 L (34.0-46.0) % ABG Potassium 4.7 H (3.4-4.5) mmol/L ABG Ionized Calcium 4.2 L (4.5-5.3) mg/dL ABG Glucose 189 H (75-99) mg/dL ABG Lactic Acid (0.5-1.6) mmol/L Hemoglobin 6.7 L* (11.4-16.0) gm/dL BUN (7-17) mg/dL Creatinine (0.52-1.04) mg/dL Glucose (74-99) mg/dL POC Glucose (mg/dL) (75-99) mg/dL Magnesium (1.6-2.3) mg/dL AST (14-36) U/L Alkaline Phosphatase (38-126) U/L Total Protein (6.3-8.2) g/dL Albumin (3.5-5.0) g/dL Arterial Blood Potassium 4.7 H (3.4-4.5) mmol/L Arterial Blood Glucose 189 H (75-99) mg/dL Crossmatch 07/21/20 07/21/20 07/21/20 Range/Units 14:30 14:38 15:29 WBC (3.8-10.6) k/uL RBC (3.80-5.40) m/uL Hgb (11.4-16.0) gm/dL Hct (34.0-46.0) % Plt Count (150-450) k/uL Neutrophils # (1.3-7.7) k/uL Lymphocytes # (1.0-4.8) k/uL PT (9.0-12.0) sec INR (<1.2) APTT (22.0-30.0) sec ABG pH (7.35-7.45) ABG pO2 169 H (83-108) mmHg ABG HCO3 26 H (21-25) mmol/L ABG Total CO2 27 H (19-24) mmol/L ABG O2 Saturation 99.9 H (94-97) % ABG Hematocrit 25 L (34.0-46.0) % ABG Potassium (3.4-4.5) mmol/L ABG Ionized Calcium (4.5-5.3) mg/dL ABG Glucose 195 H (75-99) mg/dL ABG Lactic Acid 1.7 H (0.5-1.6) mmol/L Hemoglobin 8.3 L (11.4-16.0) gm/dL BUN 24 H (7-17) mg/dL Creatinine 1.46 H (0.52-1.04) mg/dL Glucose 188 H (74-99) mg/dL POC Glucose (mg/dL) 199 H (75-99) mg/dL Magnesium 2.6 H (1.6-2.3) mg/dL AST 62 H (14-36) U/L Alkaline Phosphatase 33 L (38-126) U/L Total Protein 5.3 L (6.3-8.2) g/dL Albumin 3.2 L (3.5-5.0) g/dL Arterial Blood Potassium (3.4-4.5) mmol/L Arterial Blood Glucose 195 H (75-99) mg/dL Crossmatch 07/21/20 07/21/20 07/21/20 Range/Units 16:00 17:08 18:13 WBC (3.8-10.6) k/uL RBC (3.80-5.40) m/uL Hgb (11.4-16.0) gm/dL Hct (34.0-46.0) % Plt Count (150-450) k/uL Neutrophils # (1.3-7.7) k/uL Lymphocytes # (1.0-4.8) k/uL PT (9.0-12.0) sec INR (<1.2) APTT (22.0-30.0) sec ABG pH (7.35-7.45) ABG pO2 (83-108) mmHg ABG HCO3 (21-25) mmol/L ABG Total CO2 (19-24) mmol/L ABG O2 Saturation (94-97) % ABG Hematocrit (34.0-46.0) % ABG Potassium (3.4-4.5) mmol/L ABG Ionized Calcium (4.5-5.3) mg/dL ABG Glucose (75-99) mg/dL ABG Lactic Acid (0.5-1.6) mmol/L Hemoglobin (11.4-16.0) gm/dL BUN (7-17) mg/dL Creatinine (0.52-1.04) mg/dL Glucose (74-99) mg/dL POC Glucose (mg/dL) 213 H 193 H 186 H (75-99) mg/dL Magnesium (1.6-2.3) mg/dL AST (14-36) U/L Alkaline Phosphatase (38-126) U/L Total Protein (6.3-8.2) g/dL Albumin (3.5-5.0) g/dL Arterial Blood Potassium (3.4-4.5) mmol/L Arterial Blood Glucose (75-99) mg/dL Crossmatch 07/21/20 07/21/20 07/21/20 Range/Units 18:14 19:07 19:54 WBC 11.6 H (3.8-10.6) k/uL RBC 2.52 L (3.80-5.40) m/uL Hgb 7.9 L (11.4-16.0) gm/dL Hct 23.8 L (34.0-46.0) % Plt Count 84 L (150-450) k/uL Neutrophils # 10.2 H (1.3-7.7) k/uL Lymphocytes # 0.9 L (1.0-4.8) k/uL PT (9.0-12.0) sec INR (<1.2) APTT (22.0-30.0) sec ABG pH (7.35-7.45) ABG pO2 (83-108) mmHg ABG HCO3 (21-25) mmol/L ABG Total CO2 (19-24) mmol/L ABG O2 Saturation (94-97) % ABG Hematocrit (34.0-46.0) % ABG Potassium (3.4-4.5) mmol/L ABG Ionized Calcium (4.5-5.3) mg/dL ABG Glucose (75-99) mg/dL ABG Lactic Acid (0.5-1.6) mmol/L Hemoglobin (11.4-16.0) gm/dL BUN (7-17) mg/dL Creatinine (0.52-1.04) mg/dL Glucose (74-99) mg/dL POC Glucose (mg/dL) 187 H 186 H (75-99) mg/dL Magnesium (1.6-2.3) mg/dL AST (14-36) U/L Alkaline Phosphatase (38-126) U/L Total Protein (6.3-8.2) g/dL Albumin (3.5-5.0) g/dL Arterial Blood Potassium (3.4-4.5) mmol/L Arterial Blood Glucose (75-99) mg/dL Crossmatch 07/21/20 07/21/20 07/21/20 Range/Units 20:00 21:02 21:54 WBC 11.5 H (3.8-10.6) k/uL RBC 2.42 L (3.80-5.40) m/uL Hgb 7.5 L (11.4-16.0) gm/dL Hct 23.0 L (34.0-46.0) % Plt Count 92 L (150-450) k/uL Neutrophils # 10.2 H (1.3-7.7) k/uL Lymphocytes # 0.8 L (1.0-4.8) k/uL PT (9.0-12.0) sec INR (<1.2) APTT (22.0-30.0) sec ABG pH (7.35-7.45) ABG pO2 (83-108) mmHg ABG HCO3 (21-25) mmol/L ABG Total CO2 (19-24) mmol/L ABG O2 Saturation (94-97) % ABG Hematocrit (34.0-46.0) % ABG Potassium (3.4-4.5) mmol/L ABG Ionized Calcium (4.5-5.3) mg/dL ABG Glucose (75-99) mg/dL ABG Lactic Acid (0.5-1.6) mmol/L Hemoglobin (11.4-16.0) gm/dL BUN (7-17) mg/dL Creatinine (0.52-1.04) mg/dL Glucose (74-99) mg/dL POC Glucose (mg/dL) 159 H 165 H (75-99) mg/dL Magnesium (1.6-2.3) mg/dL AST (14-36) U/L Alkaline Phosphatase (38-126) U/L Total Protein (6.3-8.2) g/dL Albumin (3.5-5.0) g/dL Arterial Blood Potassium (3.4-4.5) mmol/L Arterial Blood Glucose (75-99) mg/dL Crossmatch 07/21/20 07/21/20 07/22/20 Range/Units 22:01 23:04 00:08 WBC (3.8-10.6) k/uL RBC (3.80-5.40) m/uL Hgb (11.4-16.0) gm/dL Hct (34.0-46.0) % Plt Count (150-450) k/uL Neutrophils # (1.3-7.7) k/uL Lymphocytes # (1.0-4.8) k/uL PT (9.0-12.0) sec INR (<1.2) APTT (22.0-30.0) sec ABG pH (7.35-7.45) ABG pO2 139 H (83-108) mmHg ABG HCO3 (21-25) mmol/L ABG Total CO2 26 H (19-24) mmol/L ABG O2 Saturation 99.5 H (94-97) % ABG Hematocrit (34.0-46.0) % ABG Potassium (3.4-4.5) mmol/L ABG Ionized Calcium (4.5-5.3) mg/dL ABG Glucose (75-99) mg/dL ABG Lactic Acid (0.5-1.6) mmol/L Hemoglobin (11.4-16.0) gm/dL BUN (7-17) mg/dL Creatinine (0.52-1.04) mg/dL Glucose (74-99) mg/dL POC Glucose (mg/dL) 171 H 146 H (75-99) mg/dL Magnesium (1.6-2.3) mg/dL AST (14-36) U/L Alkaline Phosphatase (38-126) U/L Total Protein (6.3-8.2) g/dL Albumin (3.5-5.0) g/dL Arterial Blood Potassium (3.4-4.5) mmol/L Arterial Blood Glucose (75-99) mg/dL Crossmatch 07/22/20 07/22/20 07/22/20 Range/Units 00:58 01:53 02:54 WBC (3.8-10.6) k/uL RBC (3.80-5.40) m/uL Hgb (11.4-16.0) gm/dL Hct (34.0-46.0) % Plt Count (150-450) k/uL Neutrophils # (1.3-7.7) k/uL Lymphocytes # (1.0-4.8) k/uL PT (9.0-12.0) sec INR (<1.2) APTT (22.0-30.0) sec ABG pH (7.35-7.45) ABG pO2 (83-108) mmHg ABG HCO3 (21-25) mmol/L ABG Total CO2 (19-24) mmol/L ABG O2 Saturation (94-97) % ABG Hematocrit (34.0-46.0) % ABG Potassium (3.4-4.5) mmol/L ABG Ionized Calcium (4.5-5.3) mg/dL ABG Glucose (75-99) mg/dL ABG Lactic Acid (0.5-1.6) mmol/L Hemoglobin (11.4-16.0) gm/dL BUN (7-17) mg/dL Creatinine (0.52-1.04) mg/dL Glucose (74-99) mg/dL POC Glucose (mg/dL) 122 H 114 H 151 H (75-99) mg/dL Magnesium (1.6-2.3) mg/dL AST (14-36) U/L Alkaline Phosphatase (38-126) U/L Total Protein (6.3-8.2) g/dL Albumin (3.5-5.0) g/dL Arterial Blood Potassium (3.4-4.5) mmol/L Arterial Blood Glucose (75-99) mg/dL Crossmatch 07/22/20 07/22/20 07/22/20 Range/Units 04:15 04:20 04:20 WBC 11.0 H (3.8-10.6) k/uL RBC 2.00 L (3.80-5.40) m/uL Hgb 6.4 L* (11.4-16.0) gm/dL Hct 19.1 L* (34.0-46.0) % Plt Count 88 L (150-450) k/uL Neutrophils # 9.9 H (1.3-7.7) k/uL Lymphocytes # 0.7 L (1.0-4.8) k/uL PT (9.0-12.0) sec INR (<1.2) APTT (22.0-30.0) sec ABG pH (7.35-7.45) ABG pO2 (83-108) mmHg ABG HCO3 (21-25) mmol/L ABG Total CO2 (19-24) mmol/L ABG O2 Saturation (94-97) % ABG Hematocrit (34.0-46.0) % ABG Potassium (3.4-4.5) mmol/L ABG Ionized Calcium (4.5-5.3) mg/dL ABG Glucose (75-99) mg/dL ABG Lactic Acid (0.5-1.6) mmol/L Hemoglobin (11.4-16.0) gm/dL BUN 27 H (7-17) mg/dL Creatinine 1.99 H (0.52-1.04) mg/dL Glucose 141 H (74-99) mg/dL POC Glucose (mg/dL) 154 H (75-99) mg/dL Magnesium (1.6-2.3) mg/dL AST 64 H (14-36) U/L Alkaline Phosphatase (38-126) U/L Total Protein 5.3 L (6.3-8.2) g/dL Albumin (3.5-5.0) g/dL Arterial Blood Potassium (3.4-4.5) mmol/L Arterial Blood Glucose (75-99) mg/dL Crossmatch 07/22/20 07/22/20 07/22/20 Range/Units 05:09 06:03 06:56 WBC (3.8-10.6) k/uL RBC (3.80-5.40) m/uL Hgb (11.4-16.0) gm/dL Hct (34.0-46.0) % Plt Count (150-450) k/uL Neutrophils # (1.3-7.7) k/uL Lymphocytes # (1.0-4.8) k/uL PT (9.0-12.0) sec INR (<1.2) APTT (22.0-30.0) sec ABG pH (7.35-7.45) ABG pO2 (83-108) mmHg ABG HCO3 (21-25) mmol/L ABG Total CO2 (19-24) mmol/L ABG O2 Saturation (94-97) % ABG Hematocrit (34.0-46.0) % ABG Potassium (3.4-4.5) mmol/L ABG Ionized Calcium (4.5-5.3) mg/dL ABG Glucose (75-99) mg/dL ABG Lactic Acid (0.5-1.6) mmol/L Hemoglobin (11.4-16.0) gm/dL BUN (7-17) mg/dL Creatinine (0.52-1.04) mg/dL Glucose (74-99) mg/dL POC Glucose (mg/dL) 141 H 133 H 125 H (75-99) mg/dL Magnesium (1.6-2.3) mg/dL AST (14-36) U/L Alkaline Phosphatase (38-126) U/L Total Protein (6.3-8.2) g/dL Albumin (3.5-5.0) g/dL Arterial Blood Potassium (3.4-4.5) mmol/L Arterial Blood Glucose (75-99) mg/dL Crossmatch 07/22/20 07/22/20 07/22/20 Range/Units 07:56 08:52 10:11 WBC (3.8-10.6) k/uL RBC (3.80-5.40) m/uL Hgb (11.4-16.0) gm/dL Hct (34.0-46.0) % Plt Count (150-450) k/uL Neutrophils # (1.3-7.7) k/uL Lymphocytes # (1.0-4.8) k/uL PT (9.0-12.0) sec INR (<1.2) APTT (22.0-30.0) sec ABG pH (7.35-7.45) ABG pO2 (83-108) mmHg ABG HCO3 (21-25) mmol/L ABG Total CO2 (19-24) mmol/L ABG O2 Saturation (94-97) % ABG Hematocrit (34.0-46.0) % ABG Potassium (3.4-4.5) mmol/L ABG Ionized Calcium (4.5-5.3) mg/dL ABG Glucose (75-99) mg/dL ABG Lactic Acid (0.5-1.6) mmol/L Hemoglobin (11.4-16.0) gm/dL BUN (7-17) mg/dL Creatinine (0.52-1.04) mg/dL Glucose (74-99) mg/dL POC Glucose (mg/dL) 107 H 110 H 146 H (75-99) mg/dL Magnesium (1.6-2.3) mg/dL AST (14-36) U/L Alkaline Phosphatase (38-126) U/L Total Protein (6.3-8.2) g/dL Albumin (3.5-5.0) g/dL Arterial Blood Potassium (3.4-4.5) mmol/L Arterial Blood Glucose (75-99) mg/dL Crossmatch Assessment and Plan Plan: Assessment: 1. 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 Baseline creatinine 1.5-2. 2. Coronary artery disease status post cardiac catheterization on 07/12/2020. Status post CABG July 21. 3. Acute on chronic systolic CHF with ejection fraction of 30-35% with moderate mitral regurgitation and pulmonary hypertension. 4. Metabolic acidosis secondary to chronic kidney disease. Resolved. 5. Diabetes mellitus. 6. Volume overload. Improved with diuresis. 7. Acute hypoxic respiratory failure. 8. Acute kidney injury secondary to ATN secondary to hemodynamic instability and acute blood loss anemia. Creatinine 1.99 today. Plan: Lasix 40 mg IV once in between blood transfusions. Avoid nephrotoxins. Continue to monitor renal function and urine output. Add Aranesp.
[2020-07-22] MEDS: allopurinoL 100 MG TAB PO SCH (10:30)
[2020-07-22] MEDS: ASPIRIN 81 MG PO SCH (10:31)
[2020-07-22] MEDS: SODIUM CHLORIDE 0.9% 1,000 ML IV SCH (10:36)
--- NOTE | 2020-07-22 10:43 | P.ANPRN ---
Procedure Note - Anesthesia - Invasive Line Right Central Line Time Out Performed: Yes (710) Date of Procedure: 07/22/20 Time of Procedure: 07:11 Location of Patient: Phase I Preparation: Sterile Prep, Sterile Dressing Arterial Line Location: Radial Ultrasound Used: Yes Purpose - Visualization and Identification of Vasculature: Yes Needle Guage: 18g angio Image Stored and Saved: Yes Narrative: Central line placement per sterile protocol utilized. +localk +angio +cvp +jwire +uneventful dilation and introduction right IJ cordis Right [place] Time Out Performed: Yes (710) Date of Procedure: 07/22/20 Time of Procedure: 07:26 Location of Patient: Phase I Preparation: Sterile Prep, Sterile Dressing Arterial Line Location: Radial Ultrasound Used: No Purpose - Visualization and Identification of Vasculature: No Image Stored and Saved: No Narrative: Central line placement per sterile protocol utilized. Floated sterilily in sheath in 1 attempt to 50cm no wedge.
[2020-07-22 10:48] LABS: Glucose,Whole Blood 158 mg/dL (75-99)
[2020-07-22 11:11] LABS: HCT 22.7 % (34.0-46.0); HGB 7.6 gm/dL (11.4-16.0); Hypochromasia Slight; MCH 32.1 pg (25.0-35.0); MCHC 33.7 g/dL (31.0-37.0); MCV 95.2 fL (80.0-100.0); Mean Platelet Volume 9.2; Platelet Count 105 k/uL (150-450); RBC 2.38 m/uL (3.80-5.40); RDW 14.2 % (11.5-15.5); WBC 17.4 k/uL (3.8-10.6)
[2020-07-22 11:58] LABS: Glucose,Whole Blood 176 mg/dL (75-99)
[2020-07-22] MEDS ORDERED: DARBEPOETIN ALFA 40 MCG/0.4 ML SYRINGE SQ SCH (12:00)
--- NOTE | 2020-07-22 12:24 | P.PN ---
Subjective This is a pleasant 70-year-old female past medical history significant for diabetes mellitus, hypertension, dyslipidemia and chronic kidney disease. 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 She presented to the hospital with symptoms of unstable angina and was ruled in for non-ST elevated myocardial infarction. Echocardiogram revealed severe hypokinesia of the anteroapical wall and apical segments with ejection fraction of 30%, repeat yesterday reveals EF of 30-35%. She underwent cardiac catheterization revealing triple-vessel coronary artery disease with critical lesion in the mid LAD, significant disease in the mid RCA and moderate disease in the circumflex artery. She has been seen in evaluation by CT surgery. She is seen and examined sitting up in the recliner in no acute distress. She continues to have shortness of breath with exertion and is comfortable at rest. She has had no symptoms of chest discomfort. Repeat EKG this morning reveals sinus mechanism with ongoing persistent T-wave inversions in the precordial leads. No significant changes noted. Blood pressure 130/86 heart rate 70 afebrile maintaining oxygen saturation on nasal cannula. Laboratory data reviewed, WBC 6.6, hemoglobin 9.8, platelets 180, sodium 136, potassium 4.1, creatinine 1.87 and magnesium 1.8. Currently maintained on aspirin 81 mg daily, atorvastatin 80 mg daily, Imdur 30 mg daily and metoprolol 50 mg twice a day. 07/22/2020 Pt is seen and examined sitting up in bed. She is POD#1 LMIA-LAD, reverse SVG f rom aorta to RCA and mitral valve repair with exclusion of left atrial appendage. She is quite pale and tachyneic. She is actively vomiting. She feels very weak. Blood pressure 138/50 heart rate 80 afebrile and maintaining oxygen saturation on nasal cannula. Laboratory data reviewed, WBC 11, hemoglobin 6.4, platelets 88, sodium 137, potassium 4.2, creatinine 1.99, magnesium 2.3. Currently maintained on amiodarone infusion, aspirin 81 mg daily, atorvastatin 80 mg daily, Plavix 75 mg daily, Lopressor 12.5 mg twice a day, milrinone infusion and nephrology gave a one time dose of IV lasix this morning. She is also receiving a blood transfusion. 24-hour urine output 2300 ml. She did require dobutamine infusion last night for decreased urine output initially. GENERAL: Tachyneic and generalized pallor. NECK: Supple without JVD or thyromegaly. Right IJ in place. LUNGS: Bibasilar rales, dimimished bilaterally. Respiration equal and unlabored. No wheezes or rhonchi. Mediastinal/left pleural chest tubes present and connected to wall suction. HEART: Regular rate and rhythm with systolic ejection murmur at the left sternal border, no rubs or gallops. S1 and S2 heard. Heart hugger in place. Sternal wound open to room air and intact with no drainage. Atrial tachycardia pacemaker wires present connected to generator at a rate of 80. EXTREMITIES: Normal range of motion, bilateral lower extremity 1+ pitting edema. No clubbing or cyanosis. Peripheral pulses intact. Right radial arterial line in place. ASSESSMENT Non-ST elevated myocardial infarction s/p double vessel bypass grafting, mitral valve repair and left atrial appendage removal Acute systolic heart failure Mitral regurgitation, moderate Unstable angina Multivessel coronary artery disease Chronic kidney disease, creatinine at baseline Hypertension Dyslipidemia Diabetes mellitus Chronic nicotine dependence PLAN Continue current medical regimen. Encourage incentive spirometer use while awake. Ongoing supportive care. Follow renal function and electrolytes in the morning. Nurse Practitioner note has been reviewed, I agree with a documented findings and plan of care. Patient was seen and examined. Objective - Vital Signs Vital signs: Vital Signs Temp 97.5 F L 07/22/20 08:42 Pulse 80 07/22/20 10:00 Resp 22 07/22/20 10:00 BP 138/50 07/22/20 10:00 Pulse Ox 95 07/22/20 10:00 Intake & Output 07/21/20 07/22/20 07/22/20 18:59 06:59 18:59 Intake Total 234.321 0869.718 629.794 Output Total 1793 507 142 Balance -8309.898 1245.718 487.794 Weight 86.5 kg 91.1 kg Intake: IV 605.0 1626.0 254.5 Albumin Human 5% 500 ml 250 750 In Empty Bag 1 bag @ 250 mls/hr IVPB ONCE ONE Rx#: [id number] Cardiac Output 40 150 20 Nitroglycerin-D5w Pmx 50 6.0 1.5 mg In Dextrose/Water 1 250ml.bag @ 5 MCG/MIN 1.5 mls/hr IV .Q24H [facility] Rx#: [id number] Nitroglycerine 16.5 1.5 Pressure Bag 6 108 33 Sodium Chloride 0.9% 1, 200 600 200 000 ml @ 20 mls/hr IV . Q24H [facility] Rx#:[id number] ceFAZolin 2 gm In Sodium 50 Chloride 0.9% 50 ml @ 100 mls/hr IVPB ONCE ONE Rx# :[id number] Intake, IV Titration 51.020 434.718 79.294 Amount ACETAMINOPHEN IV (For NPO 100 ) 1,000 mg In Empty Bag 1 bag @ 400 mls/hr IVPB Q6HR [facility] Rx#:[id number] Clevidipine Butyrate 25 7.166 5.233 mg In Empty Bag 1 bag @ 1 MG/HR 2 mls/hr IV .Q24H [facility] Rx#:[id number] Dextrose 5% in Water 100 150 ml @ 618 mls/hr IV .Q10M PRN with Amiodarone 150 mg Rx#:[id number] Insulin Regular 100 unit 11.531 72.654 10.462 In Sodium Chloride 0.9% 100 ml @ Per Protocol IV .Q0M [facility] Rx#:[id number] Milrinone-D5w Pmx 20 mg 56.831 68.832 In Dextrose/Water 1 100ml .bag @ 0.15 MCG/KG/MIN 3. 893 mls/hr IV .Q24H [facility] Rx#:[id number] Norepinephrine 4 mg In 2.307 Sodium Chloride 0.9% 250 ml @ 0.05 MCG/KG/MIN 16. 478 mls/hr IV .[id number] [facility] Rx#:[id number] ceFAZolin 2 gm In Sodium 50 Chloride 0.9% 50 ml @ 100 mls/hr IVPB ONCE ONE Rx# :[id number] propofoL 1,000 mg In 30.016 Empty Bag 1 bag @ Titrate IV .Q0M [facility] Rx#: [id number] Blood Product 296 Rc Pheresis 2 As3 Unit 296 [id number] Output: Chest Tube Drainage 318 337 110 Chest Tube Left Anterior 162 83 30 Chest Mediastinal 156 254 80 Gastric Drainage 50 Urine 425 170 32 Estimated Blood Loss 1000 Other: Voiding Method Indwelling Catheter Indwelling Catheter ABP, PAP, CO, CI - Last Documented Arterial Blood Pressure 98/73 Pulmonary Artery Pressure 60/31 Cardiac Output 5.9 Cardiac Index 3.1 - Labs CBC & Chem 7: 07/22/20 10:44 07/22/20 04:20 Labs: Abnormal Lab Results - Last 24 Hours (Table) 07/20/20 07/21/20 07/21/20 Range/Units 07:41 08:46 10:15 WBC (3.8-10.6) k/uL RBC (3.80-5.40) m/uL Hgb (11.4-16.0) gm/dL Hct (34.0-46.0) % Plt Count (150-450) k/uL Neutrophils # (1.3-7.7) k/uL Lymphocytes # (1.0-4.8) k/uL PT (9.0-12.0) sec INR (<1.2) APTT (22.0-30.0) sec ABG pH 7.49 H 7.46 H (7.35-7.45) ABG pO2 388 H 155 H (83-108) mmHg ABG HCO3 28 H 27 H (21-25) mmol/L ABG Total CO2 30 H 28 H (19-24) mmol/L ABG O2 Saturation 100.0 H 99.8 H (94-97) % ABG Hematocrit 29 L 29 L (34.0-46.0) % ABG Potassium (3.4-4.5) mmol/L ABG Ionized Calcium (4.5-5.3) mg/dL ABG Glucose 139 H 155 H (75-99) mg/dL ABG Lactic Acid (0.5-1.6) mmol/L Hemoglobin 9.5 L 9.4 L (11.4-16.0) gm/dL BUN (7-17) mg/dL Creatinine (0.52-1.04) mg/dL Glucose (74-99) mg/dL POC Glucose (mg/dL) (75-99) mg/dL Magnesium (1.6-2.3) mg/dL AST (14-36) U/L Alkaline Phosphatase (38-126) U/L Total Protein (6.3-8.2) g/dL Albumin (3.5-5.0) g/dL Arterial Blood Potassium (3.4-4.5) mmol/L Arterial Blood Glucose 139 H 155 H (75-99) mg/dL Crossmatch See Detail 07/21/20 07/21/20 07/21/20 Range/Units 11:10 11:43 12:39 WBC (3.8-10.6) k/uL RBC (3.80-5.40) m/uL Hgb (11.4-16.0) gm/dL Hct (34.0-46.0) % Plt Count (150-450) k/uL Neutrophils # (1.3-7.7) k/uL Lymphocytes # (1.0-4.8) k/uL PT (9.0-12.0) sec INR (<1.2) APTT (22.0-30.0) sec ABG pH 7.46 H (7.35-7.45) ABG pO2 >420 H 344 H 254 H (83-108) mmHg ABG HCO3 26 H 26 H 26 H (21-25) mmol/L ABG Total CO2 27 H 27 H 27 H (19-24) mmol/L ABG O2 Saturation 100.0 H 100.0 H 100.0 H (94-97) % ABG Hematocrit 23 L 22 L 22 L (34.0-46.0) % ABG Potassium 4.7 H (3.4-4.5) mmol/L ABG Ionized Calcium 4.1 L 4.1 L 4.2 L (4.5-5.3) mg/dL ABG Glucose 162 H 170 H 204 H (75-99) mg/dL ABG Lactic Acid (0.5-1.6) mmol/L Hemoglobin 7.6 L 7.0 L* 7.0 L* (11.4-16.0) gm/dL BUN (7-17) mg/dL Creatinine (0.52-1.04) mg/dL Glucose (74-99) mg/dL POC Glucose (mg/dL) (75-99) mg/dL Magnesium (1.6-2.3) mg/dL AST (14-36) U/L Alkaline Phosphatase (38-126) U/L Total Protein (6.3-8.2) g/dL Albumin (3.5-5.0) g/dL Arterial Blood Potassium 4.7 H (3.4-4.5) mmol/L Arterial Blood Glucose 162 H 170 H 204 H (75-99) mg/dL Crossmatch 07/21/20 07/21/20 07/21/20 Range/Units 13:06 14:30 14:30 WBC 16.4 H (3.8-10.6) k/uL RBC 2.52 L (3.80-5.40) m/uL Hgb 7.9 L D (11.4-16.0) gm/dL Hct 23.9 L (34.0-46.0) % Plt Count 109 L D (150-450) k/uL Neutrophils # 14.4 H (1.3-7.7) k/uL Lymphocytes # (1.0-4.8) k/uL PT 13.5 H (9.0-12.0) sec INR 1.3 H (<1.2) APTT 31.5 H (22.0-30.0) sec ABG pH (7.35-7.45) ABG pO2 >420 H (83-108) mmHg ABG HCO3 27 H (21-25) mmol/L ABG Total CO2 28 H (19-24) mmol/L ABG O2 Saturation 100.0 H (94-97) % ABG Hematocrit 21 L (34.0-46.0) % ABG Potassium 4.7 H (3.4-4.5) mmol/L ABG Ionized Calcium 4.2 L (4.5-5.3) mg/dL ABG Glucose 189 H (75-99) mg/dL ABG Lactic Acid (0.5-1.6) mmol/L Hemoglobin 6.7 L* (11.4-16.0) gm/dL BUN (7-17) mg/dL Creatinine (0.52-1.04) mg/dL Glucose (74-99) mg/dL POC Glucose (mg/dL) (75-99) mg/dL Magnesium (1.6-2.3) mg/dL AST (14-36) U/L Alkaline Phosphatase (38-126) U/L Total Protein (6.3-8.2) g/dL Albumin (3.5-5.0) g/dL Arterial Blood Potassium 4.7 H (3.4-4.5) mmol/L Arterial Blood Glucose 189 H (75-99) mg/dL Crossmatch 07/21/20 07/21/20 07/21/20 Range/Units 14:30 14:38 15:29 WBC (3.8-10.6) k/uL RBC (3.80-5.40) m/uL Hgb (11.4-16.0) gm/dL Hct (34.0-46.0) % Plt Count (150-450) k/uL Neutrophils # (1.3-7.7) k/uL Lymphocytes # (1.0-4.8) k/uL PT (9.0-12.0) sec INR (<1.2) APTT (22.0-30.0) sec ABG pH (7.35-7.45) ABG pO2 169 H (83-108) mmHg ABG HCO3 26 H (21-25) mmol/L ABG Total CO2 27 H (19-24) mmol/L ABG O2 Saturation 99.9 H (94-97) % ABG Hematocrit 25 L (34.0-46.0) % ABG Potassium (3.4-4.5) mmol/L ABG Ionized Calcium (4.5-5.3) mg/dL ABG Glucose 195 H (75-99) mg/dL ABG Lactic Acid 1.7 H (0.5-1.6) mmol/L Hemoglobin 8.3 L (11.4-16.0) gm/dL BUN 24 H (7-17) mg/dL Creatinine 1.46 H (0.52-1.04) mg/dL Glucose 188 H (74-99) mg/dL POC Glucose (mg/dL) 199 H (75-99) mg/dL Magnesium 2.6 H (1.6-2.3) mg/dL AST 62 H (14-36) U/L Alkaline Phosphatase 33 L (38-126) U/L Total Protein 5.3 L (6.3-8.2) g/dL Albumin 3.2 L (3.5-5.0) g/dL Arterial Blood Potassium (3.4-4.5) mmol/L Arterial Blood Glucose 195 H (75-99) mg/dL Crossmatch 07/21/20 07/21/20 07/21/20 Range/Units 16:00 17:08 18:13 WBC (3.8-10.6) k/uL RBC (3.80-5.40) m/uL Hgb (11.4-16.0) gm/dL Hct (34.0-46.0) % Plt Count (150-450) k/uL Neutrophils # (1.3-7.7) k/uL Lymphocytes # (1.0-4.8) k/uL PT (9.0-12.0) sec INR (<1.2) APTT (22.0-30.0) sec ABG pH (7.35-7.45) ABG pO2 (83-108) mmHg ABG HCO3 (21-25) mmol/L ABG Total CO2 (19-24) mmol/L ABG O2 Saturation (94-97) % ABG Hematocrit (34.0-46.0) % ABG Potassium (3.4-4.5) mmol/L ABG Ionized Calcium (4.5-5.3) mg/dL ABG Glucose (75-99) mg/dL ABG Lactic Acid (0.5-1.6) mmol/L Hemoglobin (11.4-16.0) gm/dL BUN (7-17) mg/dL Creatinine (0.52-1.04) mg/dL Glucose (74-99) mg/dL POC Glucose (mg/dL) 213 H 193 H 186 H (75-99) mg/dL Magnesium (1.6-2.3) mg/dL AST (14-36) U/L Alkaline Phosphatase (38-126) U/L Total Protein (6.3-8.2) g/dL Albumin (3.5-5.0) g/dL Arterial Blood Potassium (3.4-4.5) mmol/L Arterial Blood Glucose (75-99) mg/dL Crossmatch 07/21/20 07/21/20 07/21/20 Range/Units 18:14 19:07 19:54 WBC 11.6 H (3.8-10.6) k/uL RBC 2.52 L (3.80-5.40) m/uL Hgb 7.9 L (11.4-16.0) gm/dL Hct 23.8 L (34.0-46.0) % Plt Count 84 L (150-450) k/uL Neutrophils # 10.2 H (1.3-7.7) k/uL Lymphocytes # 0.9 L (1.0-4.8) k/uL PT (9.0-12.0) sec INR (<1.2) APTT (22.0-30.0) sec ABG pH (7.35-7.45) ABG pO2 (83-108) mmHg ABG HCO3 (21-25) mmol/L ABG Total CO2 (19-24) mmol/L ABG O2 Saturation (94-97) % ABG Hematocrit (34.0-46.0) % ABG Potassium (3.4-4.5) mmol/L ABG Ionized Calcium (4.5-5.3) mg/dL ABG Glucose (75-99) mg/dL ABG Lactic Acid (0.5-1.6) mmol/L Hemoglobin (11.4-16.0) gm/dL BUN (7-17) mg/dL Creatinine (0.52-1.04) mg/dL Glucose (74-99) mg/dL POC Glucose (mg/dL) 187 H 186 H (75-99) mg/dL Magnesium (1.6-2.3) mg/dL AST (14-36) U/L Alkaline Phosphatase (38-126) U/L Total Protein (6.3-8.2) g/dL Albumin (3.5-5.0) g/dL Arterial Blood Potassium (3.4-4.5) mmol/L Arterial Blood Glucose (75-99) mg/dL Crossmatch 07/21/20 07/21/20 07/21/20 Range/Units 20:00 21:02 21:54 WBC 11.5 H (3.8-10.6) k/uL RBC 2.42 L (3.80-5.40) m/uL Hgb 7.5 L (11.4-16.0) gm/dL Hct 23.0 L (34.0-46.0) % Plt Count 92 L (150-450) k/uL Neutrophils # 10.2 H (1.3-7.7) k/uL Lymphocytes # 0.8 L (1.0-4.8) k/uL PT (9.0-12.0) sec INR (<1.2) APTT (22.0-30.0) sec ABG pH (7.35-7.45) ABG pO2 (83-108) mmHg ABG HCO3 (21-25) mmol/L ABG Total CO2 (19-24) mmol/L ABG O2 Saturation (94-97) % ABG Hematocrit (34.0-46.0) % ABG Potassium (3.4-4.5) mmol/L ABG Ionized Calcium (4.5-5.3) mg/dL ABG Glucose (75-99) mg/dL ABG Lactic Acid (0.5-1.6) mmol/L Hemoglobin (11.4-16.0) gm/dL BUN (7-17) mg/dL Creatinine (0.52-1.04) mg/dL Glucose (74-99) mg/dL POC Glucose (mg/dL) 159 H 165 H (75-99) mg/dL Magnesium (1.6-2.3) mg/dL AST (14-36) U/L Alkaline Phosphatase (38-126) U/L Total Protein (6.3-8.2) g/dL Albumin (3.5-5.0) g/dL Arterial Blood Potassium (3.4-4.5) mmol/L Arterial Blood Glucose (75-99) mg/dL Crossmatch 07/21/20 07/21/20 07/22/20 Range/Units 22:01 23:04 00:08 WBC (3.8-10.6) k/uL RBC (3.80-5.40) m/uL Hgb (11.4-16.0) gm/dL Hct (34.0-46.0) % Plt Count (150-450) k/uL Neutrophils # (1.3-7.7) k/uL Lymphocytes # (1.0-4.8) k/uL PT (9.0-12.0) sec INR (<1.2) APTT (22.0-30.0) sec ABG pH (7.35-7.45) ABG pO2 139 H (83-108) mmHg ABG HCO3 (21-25) mmol/L ABG Total CO2 26 H (19-24) mmol/L ABG O2 Saturation 99.5 H (94-97) % ABG Hematocrit (34.0-46.0) % ABG Potassium (3.4-4.5) mmol/L ABG Ionized Calcium (4.5-5.3) mg/dL ABG Glucose (75-99) mg/dL ABG Lactic Acid (0.5-1.6) mmol/L Hemoglobin (11.4-16.0) gm/dL BUN (7-17) mg/dL Creatinine (0.52-1.04) mg/dL Glucose (74-99) mg/dL POC Glucose (mg/dL) 171 H 146 H (75-99) mg/dL Magnesium (1.6-2.3) mg/dL AST (14-36) U/L Alkaline Phosphatase (38-126) U/L Total Protein (6.3-8.2) g/dL Albumin (3.5-5.0) g/dL Arterial Blood Potassium (3.4-4.5) mmol/L Arterial Blood Glucose (75-99) mg/dL Crossmatch 07/22/20 07/22/20 07/22/20 Range/Units 00:58 01:53 02:54 WBC (3.8-10.6) k/uL RBC (3.80-5.40) m/uL Hgb (11.4-16.0) gm/dL Hct (34.0-46.0) % Plt Count (150-450) k/uL Neutrophils # (1.3-7.7) k/uL Lymphocytes # (1.0-4.8) k/uL PT (9.0-12.0) sec INR (<1.2) APTT (22.0-30.0) sec ABG pH (7.35-7.45) ABG pO2 (83-108) mmHg ABG HCO3 (21-25) mmol/L ABG Total CO2 (19-24) mmol/L ABG O2 Saturation (94-97) % ABG Hematocrit (34.0-46.0) % ABG Potassium (3.4-4.5) mmol/L ABG Ionized Calcium (4.5-5.3) mg/dL ABG Glucose (75-99) mg/dL ABG Lactic Acid (0.5-1.6) mmol/L Hemoglobin (11.4-16.0) gm/dL BUN (7-17) mg/dL Creatinine (0.52-1.04) mg/dL Glucose (74-99) mg/dL POC Glucose (mg/dL) 122 H 114 H 151 H (75-99) mg/dL Magnesium (1.6-2.3) mg/dL AST (14-36) U/L Alkaline Phosphatase (38-126) U/L Total Protein (6.3-8.2) g/dL Albumin (3.5-5.0) g/dL Arterial Blood Potassium (3.4-4.5) mmol/L Arterial Blood Glucose (75-99) mg/dL Crossmatch 07/22/20 07/22/20 07/22/20 Range/Units 04:15 04:20 04:20 WBC 11.0 H (3.8-10.6) k/uL RBC 2.00 L (3.80-5.40) m/uL Hgb 6.4 L* (11.4-16.0) gm/dL Hct 19.1 L* (34.0-46.0) % Plt Count 88 L (150-450) k/uL Neutrophils # 9.9 H (1.3-7.7) k/uL Lymphocytes # 0.7 L (1.0-4.8) k/uL PT (9.0-12.0) sec INR (<1.2) APTT (22.0-30.0) sec ABG pH (7.35-7.45) ABG pO2 (83-108) mmHg ABG HCO3 (21-25) mmol/L ABG Total CO2 (19-24) mmol/L ABG O2 Saturation (94-97) % ABG Hematocrit (34.0-46.0) % ABG Potassium (3.4-4.5) mmol/L ABG Ionized Calcium (4.5-5.3) mg/dL ABG Glucose (75-99) mg/dL ABG Lactic Acid (0.5-1.6) mmol/L Hemoglobin (11.4-16.0) gm/dL BUN 27 H (7-17) mg/dL Creatinine 1.99 H (0.52-1.04) mg/dL Glucose 141 H (74-99) mg/dL POC Glucose (mg/dL) 154 H (75-99) mg/dL Magnesium (1.6-2.3) mg/dL AST 64 H (14-36) U/L Alkaline Phosphatase (38-126) U/L Total Protein 5.3 L (6.3-8.2) g/dL Albumin (3.5-5.0) g/dL Arterial Blood Potassium (3.4-4.5) mmol/L Arterial Blood Glucose (75-99) mg/dL Crossmatch 07/22/20 07/22/20 07/22/20 Range/Units 05:09 06:03 06:56 WBC (3.8-10.6) k/uL RBC (3.80-5.40) m/uL Hgb (11.4-16.0) gm/dL Hct (34.0-46.0) % Plt Count (150-450) k/uL Neutrophils # (1.3-7.7) k/uL Lymphocytes # (1.0-4.8) k/uL PT (9.0-12.0) sec INR (<1.2) APTT (22.0-30.0) sec ABG pH (7.35-7.45) ABG pO2 (83-108) mmHg ABG HCO3 (21-25) mmol/L ABG Total CO2 (19-24) mmol/L ABG O2 Saturation (94-97) % ABG Hematocrit (34.0-46.0) % ABG Potassium (3.4-4.5) mmol/L ABG Ionized Calcium (4.5-5.3) mg/dL ABG Glucose (75-99) mg/dL ABG Lactic Acid (0.5-1.6) mmol/L Hemoglobin (11.4-16.0) gm/dL BUN (7-17) mg/dL Creatinine (0.52-1.04) mg/dL Glucose (74-99) mg/dL POC Glucose (mg/dL) 141 H 133 H 125 H (75-99) mg/dL Magnesium (1.6-2.3) mg/dL AST (14-36) U/L Alkaline Phosphatase (38-126) U/L Total Protein (6.3-8.2) g/dL Albumin (3.5-5.0) g/dL Arterial Blood Potassium (3.4-4.5) mmol/L Arterial Blood Glucose (75-99) mg/dL Crossmatch 07/22/20 07/22/20 07/22/20 Range/Units 07:56 08:52 10:11 WBC (3.8-10.6) k/uL RBC (3.80-5.40) m/uL Hgb (11.4-16.0) gm/dL Hct (34.0-46.0) % Plt Count (150-450) k/uL Neutrophils # (1.3-7.7) k/uL Lymphocytes # (1.0-4.8) k/uL PT (9.0-12.0) sec INR (<1.2) APTT (22.0-30.0) sec ABG pH (7.35-7.45) ABG pO2 (83-108) mmHg ABG HCO3 (21-25) mmol/L ABG Total CO2 (19-24) mmol/L ABG O2 Saturation (94-97) % ABG Hematocrit (34.0-46.0) % ABG Potassium (3.4-4.5) mmol/L ABG Ionized Calcium (4.5-5.3) mg/dL ABG Glucose (75-99) mg/dL ABG Lactic Acid (0.5-1.6) mmol/L Hemoglobin (11.4-16.0) gm/dL BUN (7-17) mg/dL Creatinine (0.52-1.04) mg/dL Glucose (74-99) mg/dL POC Glucose (mg/dL) 107 H 110 H 146 H (75-99) mg/dL Magnesium (1.6-2.3) mg/dL AST (14-36) U/L Alkaline Phosphatase (38-126) U/L Total Protein (6.3-8.2) g/dL Albumin (3.5-5.0) g/dL Arterial Blood Potassium (3.4-4.5) mmol/L Arterial Blood Glucose (75-99) mg/dL Crossmatch 07/22/20 Range/Units 10:46 WBC (3.8-10.6) k/uL RBC (3.80-5.40) m/uL Hgb (11.4-16.0) gm/dL Hct (34.0-46.0) % Plt Count (150-450) k/uL Neutrophils # (1.3-7.7) k/uL Lymphocytes # (1.0-4.8) k/uL PT (9.0-12.0) sec INR (<1.2) APTT (22.0-30.0) sec ABG pH (7.35-7.45) ABG pO2 (83-108) mmHg ABG HCO3 (21-25) mmol/L ABG Total CO2 (19-24) mmol/L ABG O2 Saturation (94-97) % ABG Hematocrit (34.0-46.0) % ABG Potassium (3.4-4.5) mmol/L ABG Ionized Calcium (4.5-5.3) mg/dL ABG Glucose (75-99) mg/dL ABG Lactic Acid (0.5-1.6) mmol/L Hemoglobin (11.4-16.0) gm/dL BUN (7-17) mg/dL Creatinine (0.52-1.04) mg/dL Glucose (74-99) mg/dL POC Glucose (mg/dL) 158 H (75-99) mg/dL Magnesium (1.6-2.3) mg/dL AST (14-36) U/L Alkaline Phosphatase (38-126) U/L Total Protein (6.3-8.2) g/dL Albumin (3.5-5.0) g/dL Arterial Blood Potassium (3.4-4.5) mmol/L Arterial Blood Glucose (75-99) mg/dL Crossmatch
--- NOTE | 2020-07-22 12:43 | P.PN ---
Subjective Progress Note Date: 07/22/20 Principal diagnosis: Symptomatic multivessel coronary artery disease and non-ST elevation myocardial infarction 70-year-old female patient who is being seen for preop pulmonary clearance regarding coronary artery bypass surgery. The patient has multivessel coronary artery disease and she is post family. Morbid conditions include hypertension, hyperlipidemia, diabetes mellitus type 2 and chronic kidney disease stage IIIB/4. She presented to the hospital because of worsening shortness of breath and chest pain. She was ruled in for non-STEMI. Her troponins were elevated and it peaked at 12.7. Pro-calcitonin level was 0.23. Lactic acid level was 1.4. Chest x-ray showed small bilateral pleural effusions. There was also evidence of pulmonary vascular congestion. Cardiac catheterization was performed and please refer to the results as the patient was found to have triple-vessel disease with critical stenosis involving the LAD 60% in the circumflex, 70-80% and RCA. Patient has already received COVID-19 vaccination. Patient has no complaints and currently she is free of any chest pain. Echocardiogram was done and the patient has an ejection fraction of 30-35% and moderate mitral regurgitation. She is currently on room air oxygen and her pulse ox is around 98%. 07/18/2020, condition is stable. No new complaints for now. The patient is hemodynamically stable and the patient is awaiting cardiac surgery and she is tentatively scheduled to undergo the surgery on 07/21/2020. No new complaints otherwise for now. She is being treated with diuretics and she remains on Lasix 40 mg IV every 24 hours. She is on room air oxygen. She is free of any chest pain. She is on Levemir insulin 10 units along with a Silastic coverage. She is using incentive spirometer. Dental clearance was also given. Reevaluated today on 07/20/2020, patient is doing well, denies any shortness of breath, no cough no wheezing no fever no chills, remains on Lasix 40 mg IV push every 24 hours, remains on room air, and she is already cleared for surgery/CABG by Dr. Vargas. Chest x-ray was reviewed and no evidence of active disease. On 07/21/2020 patient seen in follow-up after 2 vessel bypass grafting surgery and mitral valve repair, she seen intubated, sedated on mechanical ventilator, currently on assist-control mode with a rate of 12, tidal volume is 400, FiO2 50% and PEEP of 10. Postoperative blood gases showed pO2 of greater than 400, pCO2 of 38, and pH of 7.40 this was done and FiO2 100% and it has since been dropped down to 50%. Patient is doing well status post Z[place] to the LAD and SVG to the RCA, mitral valve repair, left leg endoscopic vein harvest and exclusion of the left atrial appendage and intraoperative transesophageal echocardiogram. She then pointed with secondary to 50 ML per hour, Diprivan is currently at 35 mics per kilo per minute, insulin drip is at 5 units per hour, and milrinone is at 0.3 mics per kilo per minute. Hemodynamically patient is stable, PA pressure is 34/19, CVP is 10, cardiac output is 5.1, and cardiac index is 2.7, she is age a paced on the monitor, with underlying rhythm of sinus rhythm with a rate of 60 BPM, epicardial wires connected to an external pacemaker box currently at AAI mode with a rate of 80. Midsternal incision is clean dry intact, chest tube sites are clean dry and intact. Patient has 2 mediastinal and one left pleural chest tube. There is 140 mL of sang. output from the left pleural chest tube and 110 mL of sanguinous output from that mediastinal chest tube. Postoperative chest x-ray shows ET tube, NG tube, lung cancer catheter in appropriate positions. No evidence of sizable pneumothorax. Reevaluated today on 07/22/2020, patient underwent surgery as noted above, she was extubated last night at 1043. She is now on nasal cannula at 3 L/m, patient will be receiving 2 units of packed RBCs this morning for postoperative blood loss anemia hemoglobin earlier was 6.0. Patient is doing poorly with incentive spirometer. Her CVP is 17 today, cardiac output was 5.9, cardiac index is 3.1, patient remains on amiodarone at 0.5 mg/m, Primacor at 0.15 mcg/kg/m, is also on IV fluid at 50 mL/h 0.9 normal saline. Pulmonary artery pressure is 53/23. And cardiac output and index as noted. Patient at one point was placed on dopamine by thoracic surgery, developed SVT and atrial fibrillation with RVR, hence dopamine was discontinued. Chest x-ray showed bibasilar atelectasis especially at the left base. And that is expected. Continues to have mediastinal and pleural chest tubes noted. With fairly good amount of drainage overnight. WBC count today is 12.2 hemoglobin is 13.8. Electrolytes are normal. Bicarb is a bit low at 17. Renal profile is normal Objective - Vital Signs Vital signs: Vital Signs Temp 97.5 F L 07/22/20 08:42 Pulse 79 07/22/20 11:30 Resp 16 07/22/20 11:30 BP 129/52 07/22/20 11:30 Pulse Ox 94 L 07/22/20 11:30 Intake & Output 07/21/20 07/22/20 07/22/20 18:59 06:59 18:59 Intake Total 449.433 1176.718 692.147 Output Total 1793 507 177 Balance -8712.231 7860.718 515.147 Weight 86.5 kg 91.1 kg Intake: IV 605.0 1626.0 310.5 Albumin Human 5% 500 ml 250 750 In Empty Bag 1 bag @ 250 mls/hr IVPB ONCE ONE Rx#: [id number] Cardiac Output 40 150 20 Nitroglycerin-D5w Pmx 50 6.0 1.5 mg In Dextrose/Water 1 250ml.bag @ 5 MCG/MIN 1.5 mls/hr IV .Q24H [facility] Rx#: [id number] Nitroglycerine 16.5 1.5 Pressure Bag 6 108 39 Sodium Chloride 0.9% 1, 200 600 250 000 ml @ 20 mls/hr IV . Q24H [facility] Rx#:[id number] ceFAZolin 2 gm In Sodium 50 Chloride 0.9% 50 ml @ 100 mls/hr IVPB ONCE ONE Rx# :[id number] Intake, IV Titration 51.020 434.718 85.647 Amount ACETAMINOPHEN IV (For NPO 100 ) 1,000 mg In Empty Bag 1 bag @ 400 mls/hr IVPB Q6HR [facility] Rx#:[id number] Clevidipine Butyrate 25 7.166 5.233 mg In Empty Bag 1 bag @ 1 MG/HR 2 mls/hr IV .Q24H [facility] Rx#:[id number] Dextrose 5% in Water 100 150 ml @ 618 mls/hr IV .Q10M PRN with Amiodarone 150 mg Rx#:[id number] Insulin Regular 100 unit 11.531 72.654 16.815 In Sodium Chloride 0.9% 100 ml @ Per Protocol IV .Q0M [facility] Rx#:[id number] Milrinone-D5w Pmx 20 mg 56.831 68.832 In Dextrose/Water 1 100ml .bag @ 0.15 MCG/KG/MIN 3. 893 mls/hr IV .Q24H [facility] Rx#:[id number] Norepinephrine 4 mg In 2.307 Sodium Chloride 0.9% 250 ml @ 0.05 MCG/KG/MIN 16. 478 mls/hr IV .[id number] [facility] Rx#:[id number] ceFAZolin 2 gm In Sodium 50 Chloride 0.9% 50 ml @ 100 mls/hr IVPB ONCE ONE Rx# :[id number] propofoL 1,000 mg In 30.016 Empty Bag 1 bag @ Titrate IV .Q0M [facility] Rx#: [id number] Blood Product 296 Rc Pheresis 2 As3 Unit 296 [id number] Output: Chest Tube Drainage 318 337 120 Chest Tube Left Anterior 162 83 40 Chest Mediastinal 156 254 80 Gastric Drainage 50 Urine 425 170 57 Estimated Blood Loss 1000 Other: Voiding Method Indwelling Catheter Indwelling Catheter ABP, PAP, CO, CI - Last Documented Arterial Blood Pressure 98/73 Pulmonary Artery Pressure 48/19 Cardiac Output 5.9 Cardiac Index 3.1 - Exam Physical Exam revealed a 89-year-old female in no distress. On few liters nasal cannula. Looks generally weak. Head: Atraumatic, normocephalic. HEENT:[Neck is supple.] [No neck masses.] [No thyromegaly.] [No JVD.] Right IJ [place]/cordis noted. Chest: [Symmetrical chest expansion, crackles at the bases, diminished breath sounds at the bases. She has mediastinal and left pleural chest tubes present connected to wall suction, mediastinal chest tube had 120s serosanguineous drainage overnight, 400 mL total since surgery. And left pleural chest tube with 75 ML serosanguineous drainage, total 280 since surgery. Cardiac Exam: Patient has a paced rhythm. [Normal S1 and S2, no S3 gallop, 2/6 systolic murmur thought the precordium. Abdomen: [Soft, nontender, no megaly, no rebound, no guarding, normal bowel sounds.] Extremities: [No clubbing, no edema, no cyanosis.] Neurological Exam: [No focal neurologic deficit.] Alert oriented 3 no focal deficits. Psychiatric: Normal mood, affect and normal mental status examination. Skin: No rashes. - Labs CBC & Chem 7: 07/22/20 10:44 07/22/20 04:20 Labs: Abnormal Lab Results - Last 24 Hours (Table) 07/20/20 07/21/20 07/21/20 Range/Units 07:41 08:46 10:15 WBC (3.8-10.6) k/uL RBC (3.80-5.40) m/uL Hgb (11.4-16.0) gm/dL Hct (34.0-46.0) % Plt Count (150-450) k/uL Neutrophils # (1.3-7.7) k/uL Lymphocytes # (1.0-4.8) k/uL PT (9.0-12.0) sec INR (<1.2) APTT (22.0-30.0) sec ABG pH 7.49 H 7.46 H (7.35-7.45) ABG pO2 388 H 155 H (83-108) mmHg ABG HCO3 28 H 27 H (21-25) mmol/L ABG Total CO2 30 H 28 H (19-24) mmol/L ABG O2 Saturation 100.0 H 99.8 H (94-97) % ABG Hematocrit 29 L 29 L (34.0-46.0) % ABG Potassium (3.4-4.5) mmol/L ABG Ionized Calcium (4.5-5.3) mg/dL ABG Glucose 139 H 155 H (75-99) mg/dL ABG Lactic Acid (0.5-1.6) mmol/L Hemoglobin 9.5 L 9.4 L (11.4-16.0) gm/dL BUN (7-17) mg/dL Creatinine (0.52-1.04) mg/dL Glucose (74-99) mg/dL POC Glucose (mg/dL) (75-99) mg/dL Magnesium (1.6-2.3) mg/dL AST (14-36) U/L Alkaline Phosphatase (38-126) U/L Total Protein (6.3-8.2) g/dL Albumin (3.5-5.0) g/dL Arterial Blood Potassium (3.4-4.5) mmol/L Arterial Blood Glucose 139 H 155 H (75-99) mg/dL Crossmatch See Detail 07/21/20 07/21/20 07/21/20 Range/Units 11:10 11:43 12:39 WBC (3.8-10.6) k/uL RBC (3.80-5.40) m/uL Hgb (11.4-16.0) gm/dL Hct (34.0-46.0) % Plt Count (150-450) k/uL Neutrophils # (1.3-7.7) k/uL Lymphocytes # (1.0-4.8) k/uL PT (9.0-12.0) sec INR (<1.2) APTT (22.0-30.0) sec ABG pH 7.46 H (7.35-7.45) ABG pO2 >420 H 344 H 254 H (83-108) mmHg ABG HCO3 26 H 26 H 26 H (21-25) mmol/L ABG Total CO2 27 H 27 H 27 H (19-24) mmol/L ABG O2 Saturation 100.0 H 100.0 H 100.0 H (94-97) % ABG Hematocrit 23 L 22 L 22 L (34.0-46.0) % ABG Potassium 4.7 H (3.4-4.5) mmol/L ABG Ionized Calcium 4.1 L 4.1 L 4.2 L (4.5-5.3) mg/dL ABG Glucose 162 H 170 H 204 H (75-99) mg/dL ABG Lactic Acid (0.5-1.6) mmol/L Hemoglobin 7.6 L 7.0 L* 7.0 L* (11.4-16.0) gm/dL BUN (7-17) mg/dL Creatinine (0.52-1.04) mg/dL Glucose (74-99) mg/dL POC Glucose (mg/dL) (75-99) mg/dL Magnesium (1.6-2.3) mg/dL AST (14-36) U/L Alkaline Phosphatase (38-126) U/L Total Protein (6.3-8.2) g/dL Albumin (3.5-5.0) g/dL Arterial Blood Potassium 4.7 H (3.4-4.5) mmol/L Arterial Blood Glucose 162 H 170 H 204 H (75-99) mg/dL Crossmatch 07/21/20 07/21/20 07/21/20 Range/Units 13:06 14:30 14:30 WBC 16.4 H (3.8-10.6) k/uL RBC 2.52 L (3.80-5.40) m/uL Hgb 7.9 L D (11.4-16.0) gm/dL Hct 23.9 L (34.0-46.0) % Plt Count 109 L D (150-450) k/uL Neutrophils # 14.4 H (1.3-7.7) k/uL Lymphocytes # (1.0-4.8) k/uL PT 13.5 H (9.0-12.0) sec INR 1.3 H (<1.2) APTT 31.5 H (22.0-30.0) sec ABG pH (7.35-7.45) ABG pO2 >420 H (83-108) mmHg ABG HCO3 27 H (21-25) mmol/L ABG Total CO2 28 H (19-24) mmol/L ABG O2 Saturation 100.0 H (94-97) % ABG Hematocrit 21 L (34.0-46.0) % ABG Potassium 4.7 H (3.4-4.5) mmol/L ABG Ionized Calcium 4.2 L (4.5-5.3) mg/dL ABG Glucose 189 H (75-99) mg/dL ABG Lactic Acid (0.5-1.6) mmol/L Hemoglobin 6.7 L* (11.4-16.0) gm/dL BUN (7-17) mg/dL Creatinine (0.52-1.04) mg/dL Glucose (74-99) mg/dL POC Glucose (mg/dL) (75-99) mg/dL Magnesium (1.6-2.3) mg/dL AST (14-36) U/L Alkaline Phosphatase (38-126) U/L Total Protein (6.3-8.2) g/dL Albumin (3.5-5.0) g/dL Arterial Blood Potassium 4.7 H (3.4-4.5) mmol/L Arterial Blood Glucose 189 H (75-99) mg/dL Crossmatch 07/21/20 07/21/20 07/21/20 Range/Units 14:30 14:38 15:29 WBC (3.8-10.6) k/uL RBC (3.80-5.40) m/uL Hgb (11.4-16.0) gm/dL Hct (34.0-46.0) % Plt Count (150-450) k/uL Neutrophils # (1.3-7.7) k/uL Lymphocytes # (1.0-4.8) k/uL PT (9.0-12.0) sec INR (<1.2) APTT (22.0-30.0) sec ABG pH (7.35-7.45) ABG pO2 169 H (83-108) mmHg ABG HCO3 26 H (21-25) mmol/L ABG Total CO2 27 H (19-24) mmol/L ABG O2 Saturation 99.9 H (94-97) % ABG Hematocrit 25 L (34.0-46.0) % ABG Potassium (3.4-4.5) mmol/L ABG Ionized Calcium (4.5-5.3) mg/dL ABG Glucose 195 H (75-99) mg/dL ABG Lactic Acid 1.7 H (0.5-1.6) mmol/L Hemoglobin 8.3 L (11.4-16.0) gm/dL BUN 24 H (7-17) mg/dL Creatinine 1.46 H (0.52-1.04) mg/dL Glucose 188 H (74-99) mg/dL POC Glucose (mg/dL) 199 H (75-99) mg/dL Magnesium 2.6 H (1.6-2.3) mg/dL AST 62 H (14-36) U/L Alkaline Phosphatase 33 L (38-126) U/L Total Protein 5.3 L (6.3-8.2) g/dL Albumin 3.2 L (3.5-5.0) g/dL Arterial Blood Potassium (3.4-4.5) mmol/L Arterial Blood Glucose 195 H (75-99) mg/dL Crossmatch 07/21/20 07/21/20 07/21/20 Range/Units 16:00 17:08 18:13 WBC (3.8-10.6) k/uL RBC (3.80-5.40) m/uL Hgb (11.4-16.0) gm/dL Hct (34.0-46.0) % Plt Count (150-450) k/uL Neutrophils # (1.3-7.7) k/uL Lymphocytes # (1.0-4.8) k/uL PT (9.0-12.0) sec INR (<1.2) APTT (22.0-30.0) sec ABG pH (7.35-7.45) ABG pO2 (83-108) mmHg ABG HCO3 (21-25) mmol/L ABG Total CO2 (19-24) mmol/L ABG O2 Saturation (94-97) % ABG Hematocrit (34.0-46.0) % ABG Potassium (3.4-4.5) mmol/L ABG Ionized Calcium (4.5-5.3) mg/dL ABG Glucose (75-99) mg/dL ABG Lactic Acid (0.5-1.6) mmol/L Hemoglobin (11.4-16.0) gm/dL BUN (7-17) mg/dL Creatinine (0.52-1.04) mg/dL Glucose (74-99) mg/dL POC Glucose (mg/dL) 213 H 193 H 186 H (75-99) mg/dL Magnesium (1.6-2.3) mg/dL AST (14-36) U/L Alkaline Phosphatase (38-126) U/L Total Protein (6.3-8.2) g/dL Albumin (3.5-5.0) g/dL Arterial Blood Potassium (3.4-4.5) mmol/L Arterial Blood Glucose (75-99) mg/dL Crossmatch 07/21/20 07/21/20 07/21/20 Range/Units 18:14 19:07 19:54 WBC 11.6 H (3.8-10.6) k/uL RBC 2.52 L (3.80-5.40) m/uL Hgb 7.9 L (11.4-16.0) gm/dL Hct 23.8 L (34.0-46.0) % Plt Count 84 L (150-450) k/uL Neutrophils # 10.2 H (1.3-7.7) k/uL Lymphocytes # 0.9 L (1.0-4.8) k/uL PT (9.0-12.0) sec INR (<1.2) APTT (22.0-30.0) sec ABG pH (7.35-7.45) ABG pO2 (83-108) mmHg ABG HCO3 (21-25) mmol/L ABG Total CO2 (19-24) mmol/L ABG O2 Saturation (94-97) % ABG Hematocrit (34.0-46.0) % ABG Potassium (3.4-4.5) mmol/L ABG Ionized Calcium (4.5-5.3) mg/dL ABG Glucose (75-99) mg/dL ABG Lactic Acid (0.5-1.6) mmol/L Hemoglobin (11.4-16.0) gm/dL BUN (7-17) mg/dL Creatinine (0.52-1.04) mg/dL Glucose (74-99) mg/dL POC Glucose (mg/dL) 187 H 186 H (75-99) mg/dL Magnesium (1.6-2.3) mg/dL AST (14-36) U/L Alkaline Phosphatase (38-126) U/L Total Protein (6.3-8.2) g/dL Albumin (3.5-5.0) g/dL Arterial Blood Potassium (3.4-4.5) mmol/L Arterial Blood Glucose (75-99) mg/dL Crossmatch 07/21/20 07/21/20 07/21/20 Range/Units 20:00 21:02 21:54 WBC 11.5 H (3.8-10.6) k/uL RBC 2.42 L (3.80-5.40) m/uL Hgb 7.5 L (11.4-16.0) gm/dL Hct 23.0 L (34.0-46.0) % Plt Count 92 L (150-450) k/uL Neutrophils # 10.2 H (1.3-7.7) k/uL Lymphocytes # 0.8 L (1.0-4.8) k/uL PT (9.0-12.0) sec INR (<1.2) APTT (22.0-30.0) sec ABG pH (7.35-7.45) ABG pO2 (83-108) mmHg ABG HCO3 (21-25) mmol/L ABG Total CO2 (19-24) mmol/L ABG O2 Saturation (94-97) % ABG Hematocrit (34.0-46.0) % ABG Potassium (3.4-4.5) mmol/L ABG Ionized Calcium (4.5-5.3) mg/dL ABG Glucose (75-99) mg/dL ABG Lactic Acid (0.5-1.6) mmol/L Hemoglobin (11.4-16.0) gm/dL BUN (7-17) mg/dL Creatinine (0.52-1.04) mg/dL Glucose (74-99) mg/dL POC Glucose (mg/dL) 159 H 165 H (75-99) mg/dL Magnesium (1.6-2.3) mg/dL AST (14-36) U/L Alkaline Phosphatase (38-126) U/L Total Protein (6.3-8.2) g/dL Albumin (3.5-5.0) g/dL Arterial Blood Potassium (3.4-4.5) mmol/L Arterial Blood Glucose (75-99) mg/dL Crossmatch 07/21/20 07/21/20 07/22/20 Range/Units 22:01 23:04 00:08 WBC (3.8-10.6) k/uL RBC (3.80-5.40) m/uL Hgb (11.4-16.0) gm/dL Hct (34.0-46.0) % Plt Count (150-450) k/uL Neutrophils # (1.3-7.7) k/uL Lymphocytes # (1.0-4.8) k/uL PT (9.0-12.0) sec INR (<1.2) APTT (22.0-30.0) sec ABG pH (7.35-7.45) ABG pO2 139 H (83-108) mmHg ABG HCO3 (21-25) mmol/L ABG Total CO2 26 H (19-24) mmol/L ABG O2 Saturation 99.5 H (94-97) % ABG Hematocrit (34.0-46.0) % ABG Potassium (3.4-4.5) mmol/L ABG Ionized Calcium (4.5-5.3) mg/dL ABG Glucose (75-99) mg/dL ABG Lactic Acid (0.5-1.6) mmol/L Hemoglobin (11.4-16.0) gm/dL BUN (7-17) mg/dL Creatinine (0.52-1.04) mg/dL Glucose (74-99) mg/dL POC Glucose (mg/dL) 171 H 146 H (75-99) mg/dL Magnesium (1.6-2.3) mg/dL AST (14-36) U/L Alkaline Phosphatase (38-126) U/L Total Protein (6.3-8.2) g/dL Albumin (3.5-5.0) g/dL Arterial Blood Potassium (3.4-4.5) mmol/L Arterial Blood Glucose (75-99) mg/dL Crossmatch 07/22/20 07/22/20 07/22/20 Range/Units 00:58 01:53 02:54 WBC (3.8-10.6) k/uL RBC (3.80-5.40) m/uL Hgb (11.4-16.0) gm/dL Hct (34.0-46.0) % Plt Count (150-450) k/uL Neutrophils # (1.3-7.7) k/uL Lymphocytes # (1.0-4.8) k/uL PT (9.0-12.0) sec INR (<1.2) APTT (22.0-30.0) sec ABG pH (7.35-7.45) ABG pO2 (83-108) mmHg ABG HCO3 (21-25) mmol/L ABG Total CO2 (19-24) mmol/L ABG O2 Saturation (94-97) % ABG Hematocrit (34.0-46.0) % ABG Potassium (3.4-4.5) mmol/L ABG Ionized Calcium (4.5-5.3) mg/dL ABG Glucose (75-99) mg/dL ABG Lactic Acid (0.5-1.6) mmol/L Hemoglobin (11.4-16.0) gm/dL BUN (7-17) mg/dL Creatinine (0.52-1.04) mg/dL Glucose (74-99) mg/dL POC Glucose (mg/dL) 122 H 114 H 151 H (75-99) mg/dL Magnesium (1.6-2.3) mg/dL AST (14-36) U/L Alkaline Phosphatase (38-126) U/L Total Protein (6.3-8.2) g/dL Albumin (3.5-5.0) g/dL Arterial Blood Potassium (3.4-4.5) mmol/L Arterial Blood Glucose (75-99) mg/dL Crossmatch 07/22/20 07/22/20 07/22/20 Range/Units 04:15 04:20 04:20 WBC 11.0 H (3.8-10.6) k/uL RBC 2.00 L (3.80-5.40) m/uL Hgb 6.4 L* (11.4-16.0) gm/dL Hct 19.1 L* (34.0-46.0) % Plt Count 88 L (150-450) k/uL Neutrophils # 9.9 H (1.3-7.7) k/uL Lymphocytes # 0.7 L (1.0-4.8) k/uL PT (9.0-12.0) sec INR (<1.2) APTT (22.0-30.0) sec ABG pH (7.35-7.45) ABG pO2 (83-108) mmHg ABG HCO3 (21-25) mmol/L ABG Total CO2 (19-24) mmol/L ABG O2 Saturation (94-97) % ABG Hematocrit (34.0-46.0) % ABG Potassium (3.4-4.5) mmol/L ABG Ionized Calcium (4.5-5.3) mg/dL ABG Glucose (75-99) mg/dL ABG Lactic Acid (0.5-1.6) mmol/L Hemoglobin (11.4-16.0) gm/dL BUN 27 H (7-17) mg/dL Creatinine 1.99 H (0.52-1.04) mg/dL Glucose 141 H (74-99) mg/dL POC Glucose (mg/dL) 154 H (75-99) mg/dL Magnesium (1.6-2.3) mg/dL AST 64 H (14-36) U/L Alkaline Phosphatase (38-126) U/L Total Protein 5.3 L (6.3-8.2) g/dL Albumin (3.5-5.0) g/dL Arterial Blood Potassium (3.4-4.5) mmol/L Arterial Blood Glucose (75-99) mg/dL Crossmatch 07/22/20 07/22/20 07/22/20 Range/Units 05:09 06:03 06:56 WBC (3.8-10.6) k/uL RBC (3.80-5.40) m/uL Hgb (11.4-16.0) gm/dL Hct (34.0-46.0) % Plt Count (150-450) k/uL Neutrophils # (1.3-7.7) k/uL Lymphocytes # (1.0-4.8) k/uL PT (9.0-12.0) sec INR (<1.2) APTT (22.0-30.0) sec ABG pH (7.35-7.45) ABG pO2 (83-108) mmHg ABG HCO3 (21-25) mmol/L ABG Total CO2 (19-24) mmol/L ABG O2 Saturation (94-97) % ABG Hematocrit (34.0-46.0) % ABG Potassium (3.4-4.5) mmol/L ABG Ionized Calcium (4.5-5.3) mg/dL ABG Glucose (75-99) mg/dL ABG Lactic Acid (0.5-1.6) mmol/L Hemoglobin (11.4-16.0) gm/dL BUN (7-17) mg/dL Creatinine (0.52-1.04) mg/dL Glucose (74-99) mg/dL POC Glucose (mg/dL) 141 H 133 H 125 H (75-99) mg/dL Magnesium (1.6-2.3) mg/dL AST (14-36) U/L Alkaline Phosphatase (38-126) U/L Total Protein (6.3-8.2) g/dL Albumin (3.5-5.0) g/dL Arterial Blood Potassium (3.4-4.5) mmol/L Arterial Blood Glucose (75-99) mg/dL Crossmatch 07/22/20 07/22/20 07/22/20 Range/Units 07:56 08:52 10:11 WBC (3.8-10.6) k/uL RBC (3.80-5.40) m/uL Hgb (11.4-16.0) gm/dL Hct (34.0-46.0) % Plt Count (150-450) k/uL Neutrophils # (1.3-7.7) k/uL Lymphocytes # (1.0-4.8) k/uL PT (9.0-12.0) sec INR (<1.2) APTT (22.0-30.0) sec ABG pH (7.35-7.45) ABG pO2 (83-108) mmHg ABG HCO3 (21-25) mmol/L ABG Total CO2 (19-24) mmol/L ABG O2 Saturation (94-97) % ABG Hematocrit (34.0-46.0) % ABG Potassium (3.4-4.5) mmol/L ABG Ionized Calcium (4.5-5.3) mg/dL ABG Glucose (75-99) mg/dL ABG Lactic Acid (0.5-1.6) mmol/L Hemoglobin (11.4-16.0) gm/dL BUN (7-17) mg/dL Creatinine (0.52-1.04) mg/dL Glucose (74-99) mg/dL POC Glucose (mg/dL) 107 H 110 H 146 H (75-99) mg/dL Magnesium (1.6-2.3) mg/dL AST (14-36) U/L Alkaline Phosphatase (38-126) U/L Total Protein (6.3-8.2) g/dL Albumin (3.5-5.0) g/dL Arterial Blood Potassium (3.4-4.5) mmol/L Arterial Blood Glucose (75-99) mg/dL Crossmatch 07/22/20 07/22/20 07/22/20 Range/Units 10:44 10:46 11:56 WBC 17.4 H (3.8-10.6) k/uL RBC 2.38 L (3.80-5.40) m/uL Hgb 7.6 L (11.4-16.0) gm/dL Hct 22.7 L (34.0-46.0) % Plt Count 105 L (150-450) k/uL Neutrophils # (1.3-7.7) k/uL Lymphocytes # (1.0-4.8) k/uL PT (9.0-12.0) sec INR (<1.2) APTT (22.0-30.0) sec ABG pH (7.35-7.45) ABG pO2 (83-108) mmHg ABG HCO3 (21-25) mmol/L ABG Total CO2 (19-24) mmol/L ABG O2 Saturation (94-97) % ABG Hematocrit (34.0-46.0) % ABG Potassium (3.4-4.5) mmol/L ABG Ionized Calcium (4.5-5.3) mg/dL ABG Glucose (75-99) mg/dL ABG Lactic Acid (0.5-1.6) mmol/L Hemoglobin (11.4-16.0) gm/dL BUN (7-17) mg/dL Creatinine (0.52-1.04) mg/dL Glucose (74-99) mg/dL POC Glucose (mg/dL) 158 H 176 H (75-99) mg/dL Magnesium (1.6-2.3) mg/dL AST (14-36) U/L Alkaline Phosphatase (38-126) U/L Total Protein (6.3-8.2) g/dL Albumin (3.5-5.0) g/dL Arterial Blood Potassium (3.4-4.5) mmol/L Arterial Blood Glucose (75-99) mg/dL Crossmatch Assessment and Plan Assessment: Impression: Symptomatic multivessel coronary artery disease and acute non-ST elevation myocardial infarction status post 2 vessel bypass surgery, ZARAGOZA to LAD SVG to RCA mitral valve repair, postoperative day #1 Severe LV dysfunction with ejection fraction of 30-35%. Moderate mitral regurgitation requiring surgical repair. Chronic kidney disease stage III B Type 2 diabetes. Benign essential hypertension. Dyslipidemia. Postoperative atelectasis as expected. Postoperative blood loss anemia, expected. Recommendation: Continue to monitor patient in the ICU. Continue aspirin statins and Plavix and eventually beta blockers. Continue amiodarone. Increase activity as tolerated. Incentive spirometry. GI and DVT prophylaxis. Continue Primacor for now. Continue to monitor chest tubes and x-rays on a daily basis. Continue to monitor daily I's and O's. Pain control management. We'll continue to follow. Critical care time is over 30 minutes Time with Patient: Greater than 30
[2020-07-22 13:19] LABS: Glucose,Whole Blood 183 mg/dL (75-99)
[2020-07-22] MEDS: INSULIN REGULAR 100 UNIT in SODIUM CHLORIDE 0.9% 100 ML IV SCH (13:46)
[2020-07-22 14:13] LABS: Glucose,Whole Blood 188 mg/dL (75-99)
[2020-07-22] MEDS ORDERED: METOPROLOL TARTRATE 12.5 MG TAB PO STA (15:21)
[2020-07-22 16:06] LABS: Glucose,Whole Blood 121 mg/dL (75-99)
[2020-07-22 17:56] LABS: Glucose,Whole Blood 86 mg/dL (75-99)
[2020-07-22 18:13] LABS: HCT 22.5 % (34.0-46.0); HGB 7.3 gm/dL (11.4-16.0); Hypochromasia Slight; MCH 30.5 pg (25.0-35.0); MCHC 32.5 g/dL (31.0-37.0); Poikilocytosis Slight; RBC 2.39 m/uL (3.80-5.40); WBC 16.6 k/uL (3.8-10.6)
[2020-07-22 18:15] LABS: Platelet Count 92 k/uL (150-450)
[2020-07-22 19:23] LABS: Glucose,Whole Blood 175 mg/dL (75-99)
[2020-07-22] MEDS: AMIODARONE 200 MG TAB PO SCH (20:36)
[2020-07-22] MEDS: CLOPIDOGREL 75 MG TAB PO SCH (20:37)
[2020-07-22] MEDS: ATORVASTATIN 80 MG TAB PO SCH (20:37)
[2020-07-22] MEDS: SENNOSIDES-DOCUSATE SODIUM 1 EACH TAB PO SCH (20:37)
[2020-07-22 20:44] LABS: Glucose,Whole Blood 177 mg/dL (75-99)
[2020-07-22 22:04] LABS: Glucose,Whole Blood 143 mg/dL (75-99)
[2020-07-22 23:39] LABS: Glucose,Whole Blood 113 mg/dL (75-99)
[2020-07-23] MEDS: HEPARIN SODIUM,PORCINE/PF 5,000 UNIT/0.5 ML SYRINGE SQ SCH ×3 (00:44→19:14)
[2020-07-23 01:01] LABS: Glucose,Whole Blood 100 mg/dL (75-99)
[2020-07-23 01:33] LABS: Magnesium 2.2 mg/dL (1.6-2.3); Potassium 3.9 mmol/L (3.5-5.1)
[2020-07-23] MEDS: HYDROcodone/APAP 5-325MG 1 EACH TAB PO PRN ×2 (01:53→21:57)
[2020-07-23 01:59] LABS: Glucose,Whole Blood 154 mg/dL (75-99)
[2020-07-23] MEDS ORDERED: POTASSIUM CHLORIDE ER 20 MEQ TAB.ER PO SCH (02:00)
[2020-07-23 03:01] LABS: Glucose,Whole Blood 135 mg/dL (75-99)
[2020-07-23 04:35] LABS: Glucose,Whole Blood 90 mg/dL (75-99)
[2020-07-23 04:48] LABS: Basophils % (A) 0 %; Eosinophils % (A) 0 %; HCT 26.3 % (34.0-46.0); HGB 8.6 gm/dL (11.4-16.0); Lymphocytes # (A) 1.3 k/uL (1.0-4.8); Lymphocytes % (A) 7 %; MCH 30.5 pg (25.0-35.0); MCHC 32.7 g/dL (31.0-37.0); MCV 93.4 fL (80.0-100.0); Mean Platelet Volume 10.3; Monocytes # (A) 0.8 k/uL (0-1.0); Monocytes % (A) 4 %; Neutrophils # (A) 16.6 k/uL (1.3-7.7); Neutrophils % (A) 88 %; Platelet Count 101 k/uL (150-450); Poikilocytosis Slight; RBC 2.81 m/uL (3.80-5.40); RDW 15.2 % (11.5-15.5); WBC 18.9 k/uL (3.8-10.6)
[2020-07-23 05:05] LABS: Albumin 3.2 g/dL (3.5-5.0); Calcium 8.1 mg/dL (8.4-10.2); Potassium 4.1 mmol/L (3.5-5.1); Total Bilirubin 1.1 mg/dL (0.2-1.3)
[2020-07-23] MEDS: ACETAMINOPHEN TAB 325 MG TAB PO PRN (05:11)
[2020-07-23 06:40] LABS: Glucose,Whole Blood 149 mg/dL (75-99)
[2020-07-23] MEDS: INSULIN REGULAR 100 UNIT in SODIUM CHLORIDE 0.9% 100 ML IV SCH (06:48)
[2020-07-23] MEDS ORDERED: METOCLOPRAMIDE 5 MG/ML 2 ML VIAL IVP STA (06:54)
[2020-07-23] MEDS ORDERED: METOCLOPRAMIDE 5 MG/ML 2 ML VIAL IVP PRN (06:54)
--- NOTE | 2020-07-23 06:57 | XR ---
EXAMINATION TYPE: XR chest 1V portable DATE OF EXAM: 07/23/2020 COMPARISON: 07/22/2020 HISTORY: Heart surgery. TECHNIQUE: Single frontal view of the chest is obtained. FINDINGS: There is redemonstration of multiple mediastinal/chest tubes. Pool-Arthur catheter is in sta ble position. Stable clip is seen along the left hilar region as seen before. Lung volumes slightly diminished. There is no significant pleural effusion. There is no pneumothorax. No significant consolidation is seen. IMPRESSION: Slightly increased interstitial markings with diminished lung volume. No significant fermin nge.
[2020-07-23] MEDS: PANTOPRAZOLE 40 MG TABLET PO SCH (07:07)
--- NOTE | 2020-07-23 08:00 | P.PN ---
Subjective Progress Note Date: 07/23/20 Principal diagnosis: Symptomatic diffuse multivessel coronary artery disease, non-STEMI this admission, acute on chronic systolic congestive heart failure, EF 30-35%, moderate mitral valve regurgitation, functional. Previous medical history of evidence of old anterior wall myocardial infarction, chronic kidney disease stage IV, diabetes mellitus type 2, hypertension, hyperlipidemia, lifetime nonsmoker with severe obstruction and preoperative FEV1 41% of predicted, obesity, and family history of early onset coronary artery disease with her father having a myocardial infarction in his mid 40s POD #2 double vessel coronary artery bypass grafting using the left internal loida terrell artery to left anterior descending artery, reverse saphenous vein graft from the aorta to the right coronary artery, mitral valve repair with reduction posterior annuloplasty using 26 mm AnnuloFlex band, exclusion of the left atrial appendage using a 35 mm AtriClip, endoscopic harvesting of the left greater saphenous vein from the groin to below the knee level, intraoperative graft flow measurements using the Triangulatestim system, intraoperative transesophageal echocardiogram and epi-aortic scanning. Postoperative acute blood loss anemia and thrombocytopenia, expected given hemodilution and cardiopulmonary bypass pump Atrial fibrillation with rapid ventricular response, known common occurrence after open heart surgery, currently sinus Elevated transaminases, likely multifactorial The patient's currently sitting up in a recliner in the intensive care unit in no acute distress. Denies pain, shortness of breath. Much more awake this morning and cooperative with her care. No further complaints of nausea or emesis. Currently in sinus bradycardia with heart rate in the mid 50s, hem odynamically stable on IV Primacor. Continues to have low urine output in the range of 15-25 mL per hour despite IV Lasix given yesterday by nephrology. She did have another short burst of A. fib with RVR last night. Hemoglobin yesterday 6.4, received 2 units packed red blood cells yesterday, hemoglobin this morning 8.6. Creatinine up to 2.81, AST 891, ALT 127. Right internal jugular [place]/Cordis, mediastinal and left pleural chest tubes all remaining present. Needs a lot of encouragement to use incentive spirometer. No other new concerns. Objective - Vital Signs Vital signs: Vital Signs Temp 99.1 F 07/23/20 04:00 Pulse 55 L 07/23/20 06:00 Resp 24 07/23/20 06:00 BP 111/44 07/23/20 06:00 Pulse Ox 94 L 07/23/20 06:00 Intake & Output 07/22/20 07/23/20 07/23/20 18:59 06:59 18:59 Intake Total 0206.757 4789.852 59.238 Output Total 467 546 Balance 1008.789 858.852 59.238 Weight 91.1 kg 95.4 kg Intake: IV 742.5 848 Cardiac Output 60 120 Nitroglycerine 1.5 Pressure Bag 81 78 Sodium Chloride 0.9% 1, 600 650 000 ml @ 20 mls/hr IV . Q24H [facility] Rx#:[id number] Intake, IV Titration 149.289 356.852 59.238 Amount Amiodarone 450 mg In 306.117 Dextrose 5% in Water 250 ml @ 0.5 MG/MIN 16.667 mls/hr IV .Q15H [facility] Rx#: [id number] Insulin Regular 100 unit 49.767 50.735 In Sodium Chloride 0.9% 100 ml @ Per Protocol IV .Q0M [facility] Rx#:[id number] Milrinone-D5w Pmx 20 mg 99.522 59.238 In Dextrose/Water 1 100ml .bag @ 0.15 MCG/KG/MIN 3. 893 mls/hr IV .Q24H [facility] Rx#:[id number] Oral 200 Blood Product 584 Rc Pheresis 2 As3 Unit 296 [id number] Rc Pheresis 2 As3 Unit 288 [id number] Output: Chest Tube Drainage 240 290 Chest Tube Left Anterior 100 200 Chest Mediastinal 140 90 Urine 227 256 Other: Voiding Method Indwelling Catheter Indwelling Catheter ABP, PAP, CO, CI - Last Documented Arterial Blood Pressure 98/73 Pulmonary Artery Pressure 54/23 Cardiac Output 5 Cardiac Index 2.6 - Exam CONSTITUTIONAL: Appears comfortable, cooperative, no acute distress RESPIRATORY: Lungs sounds diminished bilaterally. Respirations even, nonlabored. Currently on 2 L nasal cannula with oxygen saturation 94%. Able to achieve 500-600 mL on incentive spirometry with weak effort. Strong cough. CARDIOVASCULAR: S1, S2 present. Slow but regular rate and rhythm, sinus bradycardia on telemetry with heart rate in the mid 50s. Sternum stable. Palpable peripheral pulses bilaterally. Trace generalized extremity edema present. No calf pain or tenderness noted. Heart hugger in place with patient demonstrating appropriate use. Antiembolism stockings, SCDs present. GASTROINTESTINAL: Abdomen soft, nontender, nondistended. Hypoactive bowel sounds present 4 quadrants. Tolerating clear liquids. Positive flatus GENITOURINARY: Tapia present draining clear, yellow urine. Output overnight 15-25 mL per hour last night INTEGUMENTARY: Skin is warm and dry, pale. Anterior chest incision well approximated and covered with dry intact dressing. EVH site well approximated without redness or drainage. NEUROLOGIC: Cranial nerves II through XII intact MUSKULOSKELETAL: Able to move all extremities, strength equal but week bilaterally PSYCHIATRIC: Alert and oriented to person place and time, appropriate affect, intact judgment and insight INVASIVE LINES AND TUBES: Mediastinal/left pleural chest tubes present and connected to wall suction, no air leaks present. Mediastinal tube with 70 mL serosanguineous drainage overnight, 250 mL in the last 24 hours. Left pleural chest tube with 160 mL serosanguineous drainage overnight, 300 mL in the last 24 hours. A/V epicardial pacemaker wires present, connected to generator, backup rate 50 bpm. Right internal jugular [place]/Cordis present. Last CO/CI 5/2.6, PA 59/25, CVP 23. - Allied health notes Allied health notes reviewed: nursing - Labs CBC & Chem 7: 07/23/20 04:34 07/23/20 04:34 Labs: Abnormal Lab Results - Last 24 Hours (Table) 07/20/20 07/22/20 07/22/20 Range/Units 07:41 07:56 08:52 WBC (3.8-10.6) k/uL RBC (3.80-5.40) m/uL Hgb (11.4-16.0) gm/dL Hct (34.0-46.0) % Plt Count (150-450) k/uL Neutrophils # (1.3-7.7) k/uL Sodium (137-145) mmol/L Carbon Dioxide (22-30) mmol/L BUN (7-17) mg/dL Creatinine (0.52-1.04) mg/dL Glucose (74-99) mg/dL POC Glucose (mg/dL) 107 H 110 H (75-99) mg/dL Calcium (8.4-10.2) mg/dL AST (14-36) U/L ALT (4-34) U/L Total Protein (6.3-8.2) g/dL Albumin (3.5-5.0) g/dL Crossmatch See Detail 07/22/20 07/22/20 07/22/20 Range/Units 10:11 10:44 10:46 WBC 17.4 H (3.8-10.6) k/uL RBC 2.38 L (3.80-5.40) m/uL Hgb 7.6 L (11.4-16.0) gm/dL Hct 22.7 L (34.0-46.0) % Plt Count 105 L (150-450) k/uL Neutrophils # (1.3-7.7) k/uL Sodium (137-145) mmol/L Carbon Dioxide (22-30) mmol/L BUN (7-17) mg/dL Creatinine (0.52-1.04) mg/dL Glucose (74-99) mg/dL POC Glucose (mg/dL) 146 H 158 H (75-99) mg/dL Calcium (8.4-10.2) mg/dL AST (14-36) U/L ALT (4-34) U/L Total Protein (6.3-8.2) g/dL Albumin (3.5-5.0) g/dL Crossmatch 07/22/20 07/22/20 07/22/20 Range/Units 11:56 13:17 14:11 WBC (3.8-10.6) k/uL RBC (3.80-5.40) m/uL Hgb (11.4-16.0) gm/dL Hct (34.0-46.0) % Plt Count (150-450) k/uL Neutrophils # (1.3-7.7) k/uL Sodium (137-145) mmol/L Carbon Dioxide (22-30) mmol/L BUN (7-17) mg/dL Creatinine (0.52-1.04) mg/dL Glucose (74-99) mg/dL POC Glucose (mg/dL) 176 H 183 H 188 H (75-99) mg/dL Calcium (8.4-10.2) mg/dL AST (14-36) U/L ALT (4-34) U/L Total Protein (6.3-8.2) g/dL Albumin (3.5-5.0) g/dL Crossmatch 07/22/20 07/22/20 07/22/20 Range/Units 16:04 17:49 19:21 WBC 16.6 H (3.8-10.6) k/uL RBC 2.39 L (3.80-5.40) m/uL Hgb 7.3 L (11.4-16.0) gm/dL Hct 22.5 L (34.0-46.0) % Plt Count 92 L (150-450) k/uL Neutrophils # (1.3-7.7) k/uL Sodium (137-145) mmol/L Carbon Dioxide (22-30) mmol/L BUN (7-17) mg/dL Creatinine (0.52-1.04) mg/dL Glucose (74-99) mg/dL POC Glucose (mg/dL) 121 H 175 H (75-99) mg/dL Calcium (8.4-10.2) mg/dL AST (14-36) U/L ALT (4-34) U/L Total Protein (6.3-8.2) g/dL Albumin (3.5-5.0) g/dL Crossmatch 07/22/20 07/22/20 07/22/20 Range/Units 20:43 22:02 23:37 WBC (3.8-10.6) k/uL RBC (3.80-5.40) m/uL Hgb (11.4-16.0) gm/dL Hct (34.0-46.0) % Plt Count (150-450) k/uL Neutrophils # (1.3-7.7) k/uL Sodium (137-145) mmol/L Carbon Dioxide (22-30) mmol/L BUN (7-17) mg/dL Creatinine (0.52-1.04) mg/dL Glucose (74-99) mg/dL POC Glucose (mg/dL) 177 H 143 H 113 H (75-99) mg/dL Calcium (8.4-10.2) mg/dL AST (14-36) U/L ALT (4-34) U/L Total Protein (6.3-8.2) g/dL Albumin (3.5-5.0) g/dL Crossmatch 07/23/20 07/23/20 07/23/20 Range/Units 00:59 01:57 02:59 WBC (3.8-10.6) k/uL RBC (3.80-5.40) m/uL Hgb (11.4-16.0) gm/dL Hct (34.0-46.0) % Plt Count (150-450) k/uL Neutrophils # (1.3-7.7) k/uL Sodium (137-145) mmol/L Carbon Dioxide (22-30) mmol/L BUN (7-17) mg/dL Creatinine (0.52-1.04) mg/dL Glucose (74-99) mg/dL POC Glucose (mg/dL) 100 H 154 H 135 H (75-99) mg/dL Calcium (8.4-10.2) mg/dL AST (14-36) U/L ALT (4-34) U/L Total Protein (6.3-8.2) g/dL Albumin (3.5-5.0) g/dL Crossmatch 07/23/20 07/23/20 07/23/20 Range/Units 04:34 04:34 06:39 WBC 18.9 H (3.8-10.6) k/uL RBC 2.81 L (3.80-5.40) m/uL Hgb 8.6 L (11.4-16.0) gm/dL Hct 26.3 L (34.0-46.0) % Plt Count 101 L (150-450) k/uL Neutrophils # 16.6 H (1.3-7.7) k/uL Sodium 133 L (137-145) mmol/L Carbon Dioxide 21 L (22-30) mmol/L BUN 30 H (7-17) mg/dL Creatinine 2.81 H (0.52-1.04) mg/dL Glucose 110 H (74-99) mg/dL POC Glucose (mg/dL) 149 H (75-99) mg/dL Calcium 8.1 L (8.4-10.2) mg/dL AST 891 H (14-36) U/L ALT 127 H (4-34) U/L Total Protein 5.0 L (6.3-8.2) g/dL Albumin 3.2 L (3.5-5.0) g/dL Crossmatch - Imaging and Cardiology Chest x-ray: image reviewed Assessment and Plan Assessment: 1. Symptomatic diffusely calcified multivessel coronary artery disease, non-STEMI this admission, status post 2 vessel CABG 2. Acute on chronic systolic congestive heart failure, EF 30-35% 3. Moderate mitral valve regurgitation on SLOANE, status post 26 mm AnnuloFlex band 4. Dyspnea on admission, secondary to acute heart failure, proBNP on admission 14,500 5. Chronic kidney disease stage IV, baseline creatinine around 1.9 per nephrology 6. Diabetes mellitus type 2, hemoglobin A1c is 8.7% 7. Hypertension 8. Hyperlipidemia, treated, cholesterol 157, LDL 75 9. Lifetime nonsmoker 10. Severe obstruction, preoperative FEV1 41% of predicted with moderate increased operative risk per pulmonology 11. Family history of early onset coronary artery disease with her father h aving a myocardial infarction in his mid 40s 12. Evidence of old anterior wall myocardial infarction 13. Postoperative acute blood loss anemia and thrombocytopenia, expected 14. Atrial fibrillation with rapid ventricular response, currently sinus Plan: 1. Continue to optimize medical management with low dose aspirin, Plavix. Will hold beta charity for now due to underlying bradycardia, will start and increase when able. Will place statin on hold secondary to increased transaminases, will reintroduce when AST/ALT normalize 2. Continue amiodarone for A. fib prophylaxis. No anticoagulation at this point 3. Wean oxygen as tolerated. Encourage incentive spirometry use 10x every hour while, bronchodilators per pulmonology 4. Increase activity, ambulate as tolerated. PT/OT/cardiac rehab consulted 5. Will monitor daily labs and CXR. Electrolyte replacement per protocol. No further transfusions at this point. Decision on Lasix administration deferred to nephrology 6. Insulin management per primary care. Patient need tight blood sugar control to promote healing, union of the sternal bone 7. GI/DVT prophylaxis 8. Discontinue Primacor. Will discontinue [place] later today if REBECCA/CI remained stable. Connect Cordis to continuous CVP monitoring 9. Will discontinue mediastinal and left pleural chest tubes 10. Continue tapia catheter for another 24 hours for strict accurate I/Os. Daily weights 11. Pain control with current medication regimen. No toradol due to CKD 12. More recommendations to follow Time with Patient: Greater than 30
[2020-07-23] MEDS: IPRATROPIUM-ALBUTEROL 3 ML NEB INHALATION SCH ×4 (08:08→20:06)
[2020-07-23] MEDS: ASPIRIN 81 MG PO SCH (08:32)
[2020-07-23] MEDS: AMIODARONE 200 MG TAB PO SCH (08:32)
[2020-07-23] MEDS: METOPROLOL TARTRATE 12.5 MG TAB PO SCH ×2 (08:32→20:07)
[2020-07-23] MEDS: allopurinoL 100 MG TAB PO SCH (08:32)
[2020-07-23 08:37] LABS: Glucose,Whole Blood 145 mg/dL (75-99)
[2020-07-23] MEDS ORDERED: ASPIRIN 81 MG PO ONE (09:00)
[2020-07-23 10:13] LABS: Glucose,Whole Blood 117 mg/dL (75-99)
--- NOTE | 2020-07-23 10:28 | P.PN ---
Subjective Patient is seen in follow-up for chronic kidney disease. Patient has chronic kidney disease stage IV with baseline creatinine in the range of 1.7-2. She underwent CABG on July 21. Received a unit of blood July 22. Hemoglobin better. Sitting up in chair. No chest pain or shortness of breath. Urine output about 20 mL an hour. Vital signs are stable. General: The patient appeared well nourished and normally developed. HEENT: On nasal cannula. LUNGS: Breath sounds decreased. HEART: Rate and Rhythm are regular. ABDOMEN: Soft, no distention. EXTREMITITES: Trace edema. Objective - Vital Signs Vital signs: Vital Signs Temp 99.1 F 07/23/20 08:00 Pulse 79 07/23/20 10:00 Resp 14 07/23/20 10:00 BP 133/58 07/23/20 10:00 Pulse Ox 97 07/23/20 10:00 Intake & Output 07/22/20 07/23/20 07/23/20 18:59 06:59 18:59 Intake Total 9387.686 2262.852 79.842 Output Total 467 546 Balance 1008.789 858.852 79.842 Weight 91.1 kg 95.4 kg Intake: IV 742.5 848 Cardiac Output 60 120 Nitroglycerine 1.5 Pressure Bag 81 78 Sodium Chloride 0.9% 1, 600 650 000 ml @ 20 mls/hr IV . Q24H [facility] Rx#:[id number] Intake, IV Titration 149.289 356.852 79.842 Amount Amiodarone 450 mg In 306.117 Dextrose 5% in Water 250 ml @ 0.5 MG/MIN 16.667 mls/hr IV .Q15H [facility] Rx#: [id number] Insulin Regular 100 unit 49.767 50.735 20.604 In Sodium Chloride 0.9% 100 ml @ Per Protocol IV .Q0M [facility] Rx#:[id number] Milrinone-D5w Pmx 20 mg 99.522 59.238 In Dextrose/Water 1 100ml .bag @ 0.15 MCG/KG/MIN 3. 893 mls/hr IV .Q24H [facility] Rx#:[id number] Oral 200 Blood Product 584 Rc Pheresis 2 As3 Unit 296 [id number] Rc Pheresis 2 As3 Unit 288 [id number] Output: Chest Tube Drainage 240 290 Chest Tube Left Anterior 100 200 Chest Mediastinal 140 90 Urine 227 256 Other: Voiding Method Indwelling Catheter Indwelling Catheter Indwelling Catheter ABP, PAP, CO, CI - Last Documented Arterial Blood Pressure 98/73 Pulmonary Artery Pressure 47/26 Cardiac Output 5 Cardiac Index 2.6 - Labs CBC & Chem 7: 07/23/20 04:34 07/23/20 04:34 Labs: Abnormal Lab Results - Last 24 Hours (Table) 07/20/20 07/22/20 07/22/20 Range/Units 07:41 10:44 10:46 WBC 17.4 H (3.8-10.6) k/uL RBC 2.38 L (3.80-5.40) m/uL Hgb 7.6 L (11.4-16.0) gm/dL Hct 22.7 L (34.0-46.0) % Plt Count 105 L (150-450) k/uL Neutrophils # (1.3-7.7) k/uL Sodium (137-145) mmol/L Carbon Dioxide (22-30) mmol/L BUN (7-17) mg/dL Creatinine (0.52-1.04) mg/dL Glucose (74-99) mg/dL POC Glucose (mg/dL) 158 H (75-99) mg/dL Calcium (8.4-10.2) mg/dL AST (14-36) U/L ALT (4-34) U/L Total Protein (6.3-8.2) g/dL Albumin (3.5-5.0) g/dL Crossmatch See Detail 07/22/20 07/22/20 07/22/20 Range/Units 11:56 13:17 14:11 WBC (3.8-10.6) k/uL RBC (3.80-5.40) m/uL Hgb (11.4-16.0) gm/dL Hct (34.0-46.0) % Plt Count (150-450) k/uL Neutrophils # (1.3-7.7) k/uL Sodium (137-145) mmol/L Carbon Dioxide (22-30) mmol/L BUN (7-17) mg/dL Creatinine (0.52-1.04) mg/dL Glucose (74-99) mg/dL POC Glucose (mg/dL) 176 H 183 H 188 H (75-99) mg/dL Calcium (8.4-10.2) mg/dL AST (14-36) U/L ALT (4-34) U/L Total Protein (6.3-8.2) g/dL Albumin (3.5-5.0) g/dL Crossmatch 07/22/20 07/22/20 07/22/20 Range/Units 16:04 17:49 19:21 WBC 16.6 H (3.8-10.6) k/uL RBC 2.39 L (3.80-5.40) m/uL Hgb 7.3 L (11.4-16.0) gm/dL Hct 22.5 L (34.0-46.0) % Plt Count 92 L (150-450) k/uL Neutrophils # (1.3-7.7) k/uL Sodium (137-145) mmol/L Carbon Dioxide (22-30) mmol/L BUN (7-17) mg/dL Creatinine (0.52-1.04) mg/dL Glucose (74-99) mg/dL POC Glucose (mg/dL) 121 H 175 H (75-99) mg/dL Calcium (8.4-10.2) mg/dL AST (14-36) U/L ALT (4-34) U/L Total Protein (6.3-8.2) g/dL Albumin (3.5-5.0) g/dL Crossmatch 07/22/20 07/22/20 07/22/20 Range/Units 20:43 22:02 23:37 WBC (3.8-10.6) k/uL RBC (3.80-5.40) m/uL Hgb (11.4-16.0) gm/dL Hct (34.0-46.0) % Plt Count (150-450) k/uL Neutrophils # (1.3-7.7) k/uL Sodium (137-145) mmol/L Carbon Dioxide (22-30) mmol/L BUN (7-17) mg/dL Creatinine (0.52-1.04) mg/dL Glucose (74-99) mg/dL POC Glucose (mg/dL) 177 H 143 H 113 H (75-99) mg/dL Calcium (8.4-10.2) mg/dL AST (14-36) U/L ALT (4-34) U/L Total Protein (6.3-8.2) g/dL Albumin (3.5-5.0) g/dL Crossmatch 07/23/20 07/23/20 07/23/20 Range/Units 00:59 01:57 02:59 WBC (3.8-10.6) k/uL RBC (3.80-5.40) m/uL Hgb (11.4-16.0) gm/dL Hct (34.0-46.0) % Plt Count (150-450) k/uL Neutrophils # (1.3-7.7) k/uL Sodium (137-145) mmol/L Carbon Dioxide (22-30) mmol/L BUN (7-17) mg/dL Creatinine (0.52-1.04) mg/dL Glucose (74-99) mg/dL POC Glucose (mg/dL) 100 H 154 H 135 H (75-99) mg/dL Calcium (8.4-10.2) mg/dL AST (14-36) U/L ALT (4-34) U/L Total Protein (6.3-8.2) g/dL Albumin (3.5-5.0) g/dL Crossmatch 07/23/20 07/23/20 07/23/20 Range/Units 04:34 04:34 06:39 WBC 18.9 H (3.8-10.6) k/uL RBC 2.81 L (3.80-5.40) m/uL Hgb 8.6 L (11.4-16.0) gm/dL Hct 26.3 L (34.0-46.0) % Plt Count 101 L (150-450) k/uL Neutrophils # 16.6 H (1.3-7.7) k/uL Sodium 133 L (137-145) mmol/L Carbon Dioxide 21 L (22-30) mmol/L BUN 30 H (7-17) mg/dL Creatinine 2.81 H (0.52-1.04) mg/dL Glucose 110 H (74-99) mg/dL POC Glucose (mg/dL) 149 H (75-99) mg/dL Calcium 8.1 L (8.4-10.2) mg/dL AST 891 H (14-36) U/L ALT 127 H (4-34) U/L Total Protein 5.0 L (6.3-8.2) g/dL Albumin 3.2 L (3.5-5.0) g/dL Crossmatch 07/23/20 07/23/20 Range/Units 08:36 10:12 WBC (3.8-10.6) k/uL RBC (3.80-5.40) m/uL Hgb (11.4-16.0) gm/dL Hct (34.0-46.0) % Plt Count (150-450) k/uL Neutrophils # (1.3-7.7) k/uL Sodium (137-145) mmol/L Carbon Dioxide (22-30) mmol/L BUN (7-17) mg/dL Creatinine (0.52-1.04) mg/dL Glucose (74-99) mg/dL POC Glucose (mg/dL) 145 H 117 H (75-99) mg/dL Calcium (8.4-10.2) mg/dL AST (14-36) U/L ALT (4-34) U/L Total Protein (6.3-8.2) g/dL Albumin (3.5-5.0) g/dL Crossmatch Assessment and Plan Plan: Assessment: 1. 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 Baseline creatinine 1.5-2. 2. Coronary artery disease status post cardiac catheterization on 07/12/2020. Status post CABG July 21. 3. Acute on chronic systolic CHF with ejection fraction of 30-35% with moderate mitral regurgitation and pulmonary hypertension. 4. Metabolic acidosis secondary to chronic kidney disease. 5. Diabetes mellitus. 6. Volume overload. Improved with diuresis. 7. Acute hypoxic respiratory failure. 8. Acute kidney injury secondary to ATN secondary to hemodynamic instability and acute blood loss anemia. Creatinine 12.81 today. 9. A. fib. On Lopressor. 10. Anemia of chronic kidney disease and component of acute blood loss. Status post blood transfusion. On Aranesp. Plan: Avoid nephrotoxins. Continue to monitor renal function and urine output. Encouraged oral intake. If urine output remains low, will repeat Lasix 40 mg IV once today.
--- NOTE | 2020-07-23 11:20 | P.PN ---
Subjective This is a pleasant 70-year-old female past medical history significant for diabetes mellitus, hypertension, dyslipidemia and chronic kidney disease. 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 She presented to the hospital with symptoms of unstable angina and was ruled in for non-ST elevated myocardial infarction. Echocardiogram revealed severe hypokinesia of the anteroapical wall and apical segments with ejection fraction of 30%, repeat yesterday reveals EF of 30-35%. She underwent cardiac catheterization revealing triple-vessel coronary artery disease with critical lesion in the mid LAD, significant disease in the mid RCA and moderate disease in the circumflex artery. She has been seen in evaluation by CT surgery. She is seen and examined sitting up in the recliner in no acute distress. She continues to have shortness of breath with exertion and is comfortable at rest. She has had no symptoms of chest discomfort. Repeat EKG this morning reveals sinus mechanism with ongoing persistent T-wave inversions in the precordial leads. No significant changes noted. Blood pressure 130/86 heart rate 70 afebrile maintaining oxygen saturation on nasal cannula. Laboratory data reviewed, WBC 6.6, hemoglobin 9.8, platelets 180, sodium 136, potassium 4.1, creatinine 1.87 and magnesium 1.8. Currently maintained on aspirin 81 mg daily, atorvastatin 80 mg daily, Imdur 30 mg daily and metoprolol 50 mg twice a day. 07/23/2020 Pt is seen and examined sitting up in bed. She is POD#2 LMIA-LAD, reverse SVG f rom aorta to RCA and mitral valve repair with exclusion of left atrial appendage. Chest tubes have been removed. Pacemaker still in place however heart is beating intrinsically at 75. Blood pressure 133/58. Laboratory data reviewed, WBC 18.9, hemoglobin 8.6, platelets 101, sodium 133, potassium 4.1 and creatinine 2.8. GENERAL: Tachyneic and generalized pallor. NECK: Supple without JVD or thyromegaly. Right IJ in place. LUNGS: Bibasilar rales, dimimished bilaterally. Respiration equal and unlabored. No wheezes or rhonchi. HEART: Regular rate and rhythm with systolic ejection murmur at the left sternal border, no rubs or gallops. S1 and S2 heard. Heart hugger in place. EXTREMITIES: Normal range of motion, bilateral lower extremity 1+ pitting edema. No clubbing or cyanosis. Peripheral pulses intact. ASSESSMENT Non-ST elevated myocardial infarction s/p double vessel bypass grafting, mitral valve repair and left atrial appendage removal Acute systolic heart failure Mitral regurgitation, moderate Unstable angina Multivessel coronary artery disease Chronic kidney disease, creatinine at baseline Hypertension Dyslipidemia Diabetes mellitus Chronic nicotine dependence PLAN Continue current medical regimen. Encourage incentive spirometer use while awake. Ongoing supportive care. Nurse Practitioner note has been reviewed, I agree with a documented findings and plan of care. Patient was seen and examined. Objective - Vital Signs Vital signs: Vital Signs Temp 99.1 F 07/23/20 08:00 Pulse 79 07/23/20 10:00 Resp 14 07/23/20 10:00 BP 133/58 07/23/20 10:00 Pulse Ox 97 07/23/20 10:00 Intake & Output 07/22/20 07/23/20 07/23/20 18:59 06:59 18:59 Intake Total 4503.101 5107.852 79.842 Output Total 467 546 Balance 1008.789 858.852 79.842 Weight 91.1 kg 95.4 kg Intake: IV 742.5 848 Cardiac Output 60 120 Nitroglycerine 1.5 Pressure Bag 81 78 Sodium Chloride 0.9% 1, 600 650 000 ml @ 20 mls/hr IV . Q24H [facility] Rx#:[id number] Intake, IV Titration 149.289 356.852 79.842 Amount Amiodarone 450 mg In 306.117 Dextrose 5% in Water 250 ml @ 0.5 MG/MIN 16.667 mls/hr IV .Q15H [facility] Rx#: [id number] Insulin Regular 100 unit 49.767 50.735 20.604 In Sodium Chloride 0.9% 100 ml @ Per Protocol IV .Q0M [facility] Rx#:[id number] Milrinone-D5w Pmx 20 mg 99.522 59.238 In Dextrose/Water 1 100ml .bag @ 0.15 MCG/KG/MIN 3. 893 mls/hr IV .Q24H [facility] Rx#:[id number] Oral 200 Blood Product 584 Rc Pheresis 2 As3 Unit 296 [id number] Rc Pheresis 2 As3 Unit 288 [id number] Output: Chest Tube Drainage 240 290 Chest Tube Left Anterior 100 200 Chest Mediastinal 140 90 Urine 227 256 Other: Voiding Method Indwelling Catheter Indwelling Catheter Indwelling Catheter ABP, PAP, CO, CI - Last Documented Arterial Blood Pressure 98/73 Pulmonary Artery Pressure 47/26 Cardiac Output 5 Cardiac Index 2.6 - Labs CBC & Chem 7: 07/23/20 04:34 07/23/20 04:34 Labs: Abnormal Lab Results - Last 24 Hours (Table) 07/20/20 07/22/20 07/22/20 Range/Units 07:41 10:44 11:56 WBC 17.4 H (3.8-10.6) k/uL RBC 2.38 L (3.80-5.40) m/uL Hgb 7.6 L (11.4-16.0) gm/dL Hct 22.7 L (34.0-46.0) % Plt Count 105 L (150-450) k/uL Neutrophils # (1.3-7.7) k/uL Sodium (137-145) mmol/L Carbon Dioxide (22-30) mmol/L BUN (7-17) mg/dL Creatinine (0.52-1.04) mg/dL Glucose (74-99) mg/dL POC Glucose (mg/dL) 176 H (75-99) mg/dL Calcium (8.4-10.2) mg/dL AST (14-36) U/L ALT (4-34) U/L Total Protein (6.3-8.2) g/dL Albumin (3.5-5.0) g/dL Crossmatch See Detail 07/22/20 07/22/20 07/22/20 Range/Units 13:17 14:11 16:04 WBC (3.8-10.6) k/uL RBC (3.80-5.40) m/uL Hgb (11.4-16.0) gm/dL Hct (34.0-46.0) % Plt Count (150-450) k/uL Neutrophils # (1.3-7.7) k/uL Sodium (137-145) mmol/L Carbon Dioxide (22-30) mmol/L BUN (7-17) mg/dL Creatinine (0.52-1.04) mg/dL Glucose (74-99) mg/dL POC Glucose (mg/dL) 183 H 188 H 121 H (75-99) mg/dL Calcium (8.4-10.2) mg/dL AST (14-36) U/L ALT (4-34) U/L Total Protein (6.3-8.2) g/dL Albumin (3.5-5.0) g/dL Crossmatch 07/22/20 07/22/20 07/22/20 Range/Units 17:49 19:21 20:43 WBC 16.6 H (3.8-10.6) k/uL RBC 2.39 L (3.80-5.40) m/uL Hgb 7.3 L (11.4-16.0) gm/dL Hct 22.5 L (34.0-46.0) % Plt Count 92 L (150-450) k/uL Neutrophils # (1.3-7.7) k/uL Sodium (137-145) mmol/L Carbon Dioxide (22-30) mmol/L BUN (7-17) mg/dL Creatinine (0.52-1.04) mg/dL Glucose (74-99) mg/dL POC Glucose (mg/dL) 175 H 177 H (75-99) mg/dL Calcium (8.4-10.2) mg/dL AST (14-36) U/L ALT (4-34) U/L Total Protein (6.3-8.2) g/dL Albumin (3.5-5.0) g/dL Crossmatch 07/22/20 07/22/20 07/23/20 Range/Units 22:02 23:37 00:59 WBC (3.8-10.6) k/uL RBC (3.80-5.40) m/uL Hgb (11.4-16.0) gm/dL Hct (34.0-46.0) % Plt Count (150-450) k/uL Neutrophils # (1.3-7.7) k/uL Sodium (137-145) mmol/L Carbon Dioxide (22-30) mmol/L BUN (7-17) mg/dL Creatinine (0.52-1.04) mg/dL Glucose (74-99) mg/dL POC Glucose (mg/dL) 143 H 113 H 100 H (75-99) mg/dL Calcium (8.4-10.2) mg/dL AST (14-36) U/L ALT (4-34) U/L Total Protein (6.3-8.2) g/dL Albumin (3.5-5.0) g/dL Crossmatch 07/23/20 07/23/20 07/23/20 Range/Units 01:57 02:59 04:34 WBC 18.9 H (3.8-10.6) k/uL RBC 2.81 L (3.80-5.40) m/uL Hgb 8.6 L (11.4-16.0) gm/dL Hct 26.3 L (34.0-46.0) % Plt Count 101 L (150-450) k/uL Neutrophils # 16.6 H (1.3-7.7) k/uL Sodium (137-145) mmol/L Carbon Dioxide (22-30) mmol/L BUN (7-17) mg/dL Creatinine (0.52-1.04) mg/dL Glucose (74-99) mg/dL POC Glucose (mg/dL) 154 H 135 H (75-99) mg/dL Calcium (8.4-10.2) mg/dL AST (14-36) U/L ALT (4-34) U/L Total Protein (6.3-8.2) g/dL Albumin (3.5-5.0) g/dL Crossmatch 07/23/20 07/23/20 07/23/20 Range/Units 04:34 06:39 08:36 WBC (3.8-10.6) k/uL RBC (3.80-5.40) m/uL Hgb (11.4-16.0) gm/dL Hct (34.0-46.0) % Plt Count (150-450) k/uL Neutrophils # (1.3-7.7) k/uL Sodium 133 L (137-145) mmol/L Carbon Dioxide 21 L (22-30) mmol/L BUN 30 H (7-17) mg/dL Creatinine 2.81 H (0.52-1.04) mg/dL Glucose 110 H (74-99) mg/dL POC Glucose (mg/dL) 149 H 145 H (75-99) mg/dL Calcium 8.1 L (8.4-10.2) mg/dL AST 891 H (14-36) U/L ALT 127 H (4-34) U/L Total Protein 5.0 L (6.3-8.2) g/dL Albumin 3.2 L (3.5-5.0) g/dL Crossmatch 07/23/20 Range/Units 10:12 WBC (3.8-10.6) k/uL RBC (3.80-5.40) m/uL Hgb (11.4-16.0) gm/dL Hct (34.0-46.0) % Plt Count (150-450) k/uL Neutrophils # (1.3-7.7) k/uL Sodium (137-145) mmol/L Carbon Dioxide (22-30) mmol/L BUN (7-17) mg/dL Creatinine (0.52-1.04) mg/dL Glucose (74-99) mg/dL POC Glucose (mg/dL) 117 H (75-99) mg/dL Calcium (8.4-10.2) mg/dL AST (14-36) U/L ALT (4-34) U/L Total Protein (6.3-8.2) g/dL Albumin (3.5-5.0) g/dL Crossmatch
[2020-07-23 12:17] LABS: Glucose,Whole Blood 102 mg/dL (75-99)
--- NOTE | 2020-07-23 12:22 | P.PN ---
Subjective Progress Note Date: 07/23/20 Principal diagnosis: Symptomatic multivessel coronary artery disease and non-ST elevation myocardial infarction 70-year-old female patient who is being seen for preop pulmonary clearance regarding coronary artery bypass surgery. The patient has multivessel coronary artery disease and she is post family. Morbid conditions include hypertension, hyperlipidemia, diabetes mellitus type 2 and chronic kidney disease stage IIIB/4. She presented to the hospital because of worsening shortness of breath and chest pain. She was ruled in for non-STEMI. Her troponins were elevated and it peaked at 12.7. Pro-calcitonin level was 0.23. Lactic acid level was 1.4. Chest x-ray showed small bilateral pleural effusions. There was also evidence of pulmonary vascular congestion. Cardiac catheterization was performed and please refer to the results as the patient was found to have triple-vessel disease with critical stenosis involving the LAD 60% in the circumflex, 70-80% and RCA. Patient has already received COVID-19 vaccination. Patient has no complaints and currently she is free of any chest pain. Echocardiogram was done and the patient has an ejection fraction of 30-35% and moderate mitral regurgitation. She is currently on room air oxygen and her pulse ox is around 98%. 07/18/2020, condition is stable. No new complaints for now. The patient is hemodynamically stable and the patient is awaiting cardiac surgery and she is tentatively scheduled to undergo the surgery on 07/21/2020. No new complaints otherwise for now. She is being treated with diuretics and she remains on Lasix 40 mg IV every 24 hours. She is on room air oxygen. She is free of any chest pain. She is on Levemir insulin 10 units along with a Silastic coverage. She is using incentive spirometer. Dental clearance was also given. Reevaluated today on 07/20/2020, patient is doing well, denies any shortness of breath, no cough no wheezing no fever no chills, remains on Lasix 40 mg IV push every 24 hours, remains on room air, and she is already cleared for surgery/CABG by Dr. Vargas. Chest x-ray was reviewed and no evidence of active disease. On 07/21/2020 patient seen in follow-up after 2 vessel bypass grafting surgery and mitral valve repair, she seen intubated, sedated on mechanical ventilator, currently on assist-control mode with a rate of 12, tidal volume is 400, FiO2 50% and PEEP of 10. Postoperative blood gases showed pO2 of greater than 400, pCO2 of 38, and pH of 7.40 this was done and FiO2 100% and it has since been dropped down to 50%. Patient is doing well status post ZARAGOZA to the LAD and SVG to the RCA, mitral valve repair, left leg endoscopic vein harvest and exclusion of the left atrial appendage and intraoperative transesophageal echocardiogram. She then pointed with secondary to 50 ML per hour, Diprivan is currently at 35 mics per kilo per minute, insulin drip is at 5 units per hour, and milrinone is at 0.3 mics per kilo per minute. Hemodynamically patient is stable, PA pressure is 34/19, CVP is 10, cardiac output is 5.1, and cardiac index is 2.7, she is age a paced on the monitor, with underlying rhythm of sinus rhythm with a rate of 60 BPM, epicardial wires connected to an external pacemaker box currently at AAI mode with a rate of 80. Midsternal incision is clean dry intact, chest tube sites are clean dry and intact. Patient has 2 mediastinal and one left pleural chest tube. There is 140 mL of sang. output from the left pleural chest tube and 110 mL of sanguinous output from that mediastinal chest tube. Postoperative chest x-ray shows ET tube, NG tube, lung cancer catheter in appropriate positions. No evidence of sizable pneumothorax. Reevaluated today on 07/22/2020, patient underwent surgery as noted above, she was extubated last night at 1043. She is now on nasal cannula at 3 L/m, patient will be receiving 2 units of packed RBCs this morning for postoperative blood loss anemia hemoglobin earlier was 6.0. Patient is doing poorly with incentive spirometer. Her CVP is 17 today, cardiac output was 5.9, cardiac index is 3.1, patient remains on amiodarone at 0.5 mg/m, Primacor at 0.15 mcg/kg/m, is also on IV fluid at 50 mL/h 0.9 normal saline. Pulmonary artery pressure is 53/23. And cardiac output and index as noted. Patient at one point was placed on dopamine by thoracic surgery, developed SVT and atrial fibrillation with RVR, hence dopamine was discontinued. Chest x-ray showed bibasilar atelectasis especially at the left base. And that is expected. Continues to have mediastinal and pleural chest tubes noted. With fairly good amount of drainage overnight. WBC count today is 12.2 hemoglobin is 13.8. Electrolytes are normal. Bicarb is a bit low at 17. Renal profile is normal Reevaluated today on 07/23/2020, patient remains in the ICU, on 2 L nasal cannula, O2 sats is 95%. She is on IV fluid at 50 mL/h, she is on insulin at 6 units per hour. Patient's cardiac output is 5.0 cardiac index is 2.6. Minimal drainage from chest tubes, and these will be removed today. Harish was recommend ed by nephrology, however her chest x-ray does not show any evidence of heart failure. Renal functioning is a bit worse, patient may have developed acute kidney injury. Patient is status post 2 vessel CABG and MVR. Her initial presentation was a presentation of non-ST elevation myocardial infarction, and severe LV dysfunction. The worsening renal profile could be cardiorenal. Labs were reviewed today, WBC count is 18.9 hemoglobin 8.6 index was are normal BUN is 30 creatinine is worse 2.81. Patient received a total of 2 units of packed RBCs, yesterday. Objective - Vital Signs Vital signs: Vital Signs Temp 99.1 F 07/23/20 08:00 Pulse 79 07/23/20 10:00 Resp 14 07/23/20 10:00 BP 133/58 07/23/20 10:00 Pulse Ox 97 07/23/20 10:00 Intake & Output 07/22/20 07/23/20 07/23/20 18:59 06:59 18:59 Intake Total 7447.109 4154.852 79.842 Output Total 467 546 Balance 1008.789 858.852 79.842 Weight 91.1 kg 95.4 kg Intake: IV 742.5 848 Cardiac Output 60 120 Nitroglycerine 1.5 Pressure Bag 81 78 Sodium Chloride 0.9% 1, 600 650 000 ml @ 20 mls/hr IV . Q24H [facility] Rx#:[id number] Intake, IV Titration 149.289 356.852 79.842 Amount Amiodarone 450 mg In 306.117 Dextrose 5% in Water 250 ml @ 0.5 MG/MIN 16.667 mls/hr IV .Q15H [facility] Rx#: [id number] Insulin Regular 100 unit 49.767 50.735 20.604 In Sodium Chloride 0.9% 100 ml @ Per Protocol IV .Q0M [facility] Rx#:[id number] Milrinone-D5w Pmx 20 mg 99.522 59.238 In Dextrose/Water 1 100ml .bag @ 0.15 MCG/KG/MIN 3. 893 mls/hr IV .Q24H [facility] Rx#:[id number] Oral 200 Blood Product 584 Rc Pheresis 2 As3 Unit 296 [id number] Rc Pheresis 2 As3 Unit 288 [id number] Output: Chest Tube Drainage 240 290 Chest Tube Left Anterior 100 200 Chest Mediastinal 140 90 Urine 227 256 Other: Voiding Method Indwelling Catheter Indwelling Catheter Indwelling Catheter ABP, PAP, CO, CI - Last Documented Arterial Blood Pressure 98/73 Pulmonary Artery Pressure 47/26 Cardiac Output 5 Cardiac Index 2.6 - Exam Physical Exam revealed a 89-year-old female in no distress. On few liters nasal cannula. Looks generally weak. Head: Atraumatic, normocephalic. HEENT:[Neck is supple.] [No neck masses.] [No thyromegaly.] [No JVD.] Right IJ Hastings/cordis noted. Chest: [Symmetrical chest expansion, crackles at the bases, diminished breath sounds at the bases. She has mediastinal and left pleural chest tubes present connected to wall suction, mediastinal chest tube had 120s serosanguineous drainage overnight, 400 mL total since surgery. And left pleural chest tube with 75 ML serosanguineous drainage, total 280 since surgery. Cardiac Exam: Patient has a paced rhythm. [Normal S1 and S2, no S3 gallop, 2/6 systolic murmur thought the precordium. Abdomen: [Soft, nontender, no megaly, no rebound, no guarding, normal bowel sounds.] Extremities: [No clubbing, no edema, no cyanosis.] Neurological Exam: [No focal neurologic deficit.] Alert oriented 3 no focal deficits. Psychiatric: Normal mood, affect and normal mental status examination. Skin: No rashes. - Labs CBC & Chem 7: 07/23/20 04:34 07/23/20 04:34 Labs: Abnormal Lab Results - Last 24 Hours (Table) 07/20/20 07/22/20 07/22/20 Range/Units 07:41 13:17 14:11 WBC (3.8-10.6) k/uL RBC (3.80-5.40) m/uL Hgb (11.4-16.0) gm/dL Hct (34.0-46.0) % Plt Count (150-450) k/uL Neutrophils # (1.3-7.7) k/uL Sodium (137-145) mmol/L Carbon Dioxide (22-30) mmol/L BUN (7-17) mg/dL Creatinine (0.52-1.04) mg/dL Glucose (74-99) mg/dL POC Glucose (mg/dL) 183 H 188 H (75-99) mg/dL Calcium (8.4-10.2) mg/dL AST (14-36) U/L ALT (4-34) U/L Total Protein (6.3-8.2) g/dL Albumin (3.5-5.0) g/dL Crossmatch See Detail 07/22/20 07/22/20 07/22/20 Range/Units 16:04 17:49 19:21 WBC 16.6 H (3.8-10.6) k/uL RBC 2.39 L (3.80-5.40) m/uL Hgb 7.3 L (11.4-16.0) gm/dL Hct 22.5 L (34.0-46.0) % Plt Count 92 L (150-450) k/uL Neutrophils # (1.3-7.7) k/uL Sodium (137-145) mmol/L Carbon Dioxide (22-30) mmol/L BUN (7-17) mg/dL Creatinine (0.52-1.04) mg/dL Glucose (74-99) mg/dL POC Glucose (mg/dL) 121 H 175 H (75-99) mg/dL Calcium (8.4-10.2) mg/dL AST (14-36) U/L ALT (4-34) U/L Total Protein (6.3-8.2) g/dL Albumin (3.5-5.0) g/dL Crossmatch 07/22/20 07/22/20 07/22/20 Range/Units 20:43 22:02 23:37 WBC (3.8-10.6) k/uL RBC (3.80-5.40) m/uL Hgb (11.4-16.0) gm/dL Hct (34.0-46.0) % Plt Count (150-450) k/uL Neutrophils # (1.3-7.7) k/uL Sodium (137-145) mmol/L Carbon Dioxide (22-30) mmol/L BUN (7-17) mg/dL Creatinine (0.52-1.04) mg/dL Glucose (74-99) mg/dL POC Glucose (mg/dL) 177 H 143 H 113 H (75-99) mg/dL Calcium (8.4-10.2) mg/dL AST (14-36) U/L ALT (4-34) U/L Total Protein (6.3-8.2) g/dL Albumin (3.5-5.0) g/dL Crossmatch 07/23/20 07/23/20 07/23/20 Range/Units 00:59 01:57 02:59 WBC (3.8-10.6) k/uL RBC (3.80-5.40) m/uL Hgb (11.4-16.0) gm/dL Hct (34.0-46.0) % Plt Count (150-450) k/uL Neutrophils # (1.3-7.7) k/uL Sodium (137-145) mmol/L Carbon Dioxide (22-30) mmol/L BUN (7-17) mg/dL Creatinine (0.52-1.04) mg/dL Glucose (74-99) mg/dL POC Glucose (mg/dL) 100 H 154 H 135 H (75-99) mg/dL Calcium (8.4-10.2) mg/dL AST (14-36) U/L ALT (4-34) U/L Total Protein (6.3-8.2) g/dL Albumin (3.5-5.0) g/dL Crossmatch 07/23/20 07/23/20 07/23/20 Range/Units 04:34 04:34 06:39 WBC 18.9 H (3.8-10.6) k/uL RBC 2.81 L (3.80-5.40) m/uL Hgb 8.6 L (11.4-16.0) gm/dL Hct 26.3 L (34.0-46.0) % Plt Count 101 L (150-450) k/uL Neutrophils # 16.6 H (1.3-7.7) k/uL Sodium 133 L (137-145) mmol/L Carbon Dioxide 21 L (22-30) mmol/L BUN 30 H (7-17) mg/dL Creatinine 2.81 H (0.52-1.04) mg/dL Glucose 110 H (74-99) mg/dL POC Glucose (mg/dL) 149 H (75-99) mg/dL Calcium 8.1 L (8.4-10.2) mg/dL AST 891 H (14-36) U/L ALT 127 H (4-34) U/L Total Protein 5.0 L (6.3-8.2) g/dL Albumin 3.2 L (3.5-5.0) g/dL Crossmatch 07/23/20 07/23/20 07/23/20 Range/Units 08:36 10:12 12:16 WBC (3.8-10.6) k/uL RBC (3.80-5.40) m/uL Hgb (11.4-16.0) gm/dL Hct (34.0-46.0) % Plt Count (150-450) k/uL Neutrophils # (1.3-7.7) k/uL Sodium (137-145) mmol/L Carbon Dioxide (22-30) mmol/L BUN (7-17) mg/dL Creatinine (0.52-1.04) mg/dL Glucose (74-99) mg/dL POC Glucose (mg/dL) 145 H 117 H 102 H (75-99) mg/dL Calcium (8.4-10.2) mg/dL AST (14-36) U/L ALT (4-34) U/L Total Protein (6.3-8.2) g/dL Albumin (3.5-5.0) g/dL Crossmatch Assessment and Plan Assessment: Impression: Symptomatic multivessel coronary artery disease and acute non-ST elevation myocardial infarction status post 2 vessel bypass surgery, ZARGAOZA to LAD SVG to RCA mitral valve repair, postoperative day #2 Severe LV dysfunction with ejection fraction of 30-35%. Moderate mitral regurgitation requiring surgical repair. Acute on Chronic kidney disease stage III B Type 2 diabetes. Benign essential hypertension. Dyslipidemia. Postoperative atelectasis as expected. Postoperative blood loss anemia, expected. Recommendation: Continue aspirin statins and Plavix and eventually beta blockers. Increase activity as tolerated. Incentive spirometry. GI and DVT prophylaxis. Chest seems to be removed today. Continue close monitoring of renal profile. Continue to monitor daily I's and O's. Pain control management. We'll continue to follow. Time with Patient: Less than 30
[2020-07-23] MEDS ORDERED: FUROSEMIDE 10 MG/ML 4 ML VIAL IV STA (14:08)
[2020-07-23 15:49] LABS: Glucose,Whole Blood 141 mg/dL (75-99)
[2020-07-23] MEDS: SODIUM CHLORIDE 0.9% 1,000 ML IV SCH (16:02)
[2020-07-23 17:41] LABS: Glucose,Whole Blood 148 mg/dL (75-99)
[2020-07-23] MEDS: MILRINONE-D5W PMX 20 MG in DEXTROSE/WATER 1 100ML.BAG IV SCH (19:14)
[2020-07-23] MEDS: SENNOSIDES-DOCUSATE SODIUM 1 EACH TAB PO SCH (20:07)
[2020-07-23] MEDS: CLOPIDOGREL 75 MG TAB PO SCH (20:09)
[2020-07-23 20:19] LABS: Glucose,Whole Blood 162 mg/dL (75-99)
[2020-07-23 22:00] LABS: Glucose,Whole Blood 141 mg/dL (75-99)
--- NOTE | 2020-07-23 22:15 | P.PN ---
Subjective Progress Note Date: 07/22/20 Principal diagnosis: Acute non-ST elevated [place] Multivessel coronary artery disease This is a pleasant 70 years old female with past medical history of diabetes mellitus, hypertension, hyperlipidemia, stage IV chronic kidney disease. He is a patient of Dr. Barnett presents because OF chest pain and progressive dyspnea over few days. Her chest pain started last Monday for 3-4 days ago, it improved gradually but got worse yesterday. Pain was coming and going. Last night it did not go away so decided to come to the hospital. Was about 5/70 severity on the left side, none dictated. Associated with orthopnea and paroxysmal nocturnal dyspnea. She has to sit up to avoid shortness of breath. She has some little cough and phlegm. Pathak catheter was placed in the emergency room. No GI or urinary symptoms initially patient admitted with oxygen supplemented via BiPAP machine including this morning, currently her breathing is improving and she is only on 4 L oxygen and is She denies smoking, alcohol or illicit drugs. Currently she is saturating 96% on 4 L nasal cannula, patient is afebrile. Lap showing WBC of 11.0 K, hemoglobin 11.3, INR is 1.0, sodium 135, creatinine is 1.8. Baseline 1.8-2.2. INR is normal 1.0, trace of BMP and liver enzymes are unremarkable. Troponin is elevated at 0.6 [place] 1[place] [address]. Physical exam, no espinal virus are not detected. Echocardiogram: October ejection fraction 30-35%, several wall motion abnormality chest x-ray: Bilateral lung capacity, edema or infection In the emergency room patient was started on aspirin, heparin drip, lorazepam, furosemide 40 mg IV once. 07/11/2020 Patient with minimal symptoms today however lying in bed most of the time. She has chest pain on and off Hemodynamically stable Creatinine stable at 1.9, nephrology on the case as patient is going for cardiac cath, adequate sodium bicarb today. 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 Nothing by mouth after midnight In the meantime patient remains on heparin drip, IV Lasix. Also she is on aspirin. 07/12/20 Patient remains with minimal symptoms while she is at rest. Chest pain on and off. Hemodynamically stable. 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 Patient underwent cardiac cath today and found to have severe triple vessel coronary artery disease, cardiothoracic surgery team is Consulted. Patient heparin drip was stopped and started on nitroglycerin drip. Lasix, Cozaar and D5W were stopped and patient was started on normal saline at 75 mL/h. May consider to stop normal saline tomorrow 07/13/2020 This is a [id number] years old female presents because of non-STEMI and ischemic cardiomyopathy with ejection fraction 30-35%. Underwent cardiac cath showing severe triple vessel coronary artery disease and isn't currently been evaluated by cardiothoracic surgery for bypass procedure. Also echocardiogram showing moderate mitral regurgitation and moderate pulmonary hypertension Also patient is followed closely by nephrology to follow her chronic kidney disease stage 3-4, currently her creatinine stable at 1.9, Cozaar was held. Hepatitis panel negative. Patient was sitting of double chair with no chest pain and no other symptoms. And she is hemodynamically stable 07/14/2020 Patient is currently sitting in chair comfortably. No complaints of chest pain shortness of breath. No headache or dizziness or lightheadedness. No fever no chills. No nausea vomiting or abdominal pain or diarrhea. Tolerating oral diet. Patient is being continued on aspirin statins and Imdur and metoprolol. 2D echocardiogram flexion fraction 30 to 35% with severe hypokinesis of the anterior apical, anteroseptal wall. Losartan is on hold due to elevated creatinine level. Cardiology and CT surgery is on board. Evaluating for revascularization surgery. Laboratory data showed sodium 136 potassium 4.1 BUN 38 and creatinine 1.89 07/15/2020 Patient is currently resting in the chair comfortably. No complaints of chest pain or shortness of breath. EKG showed sinus rhythm with persistent anterior notions in the precordial leads. Laboratory data showed WBC 6.6 hemoglobin 9.8 platelets 180, sodium 136 potassium 4.1 BUN 36 and creatinine 1.87 and magnesium 1.8 Lower extremity arterial duplex. The left side is normal. Possibly mild infra popliteal disease on the right. Perfusion pressures appear adequate. Vein mapping was done today. Denied any nausea vomiting abdominal pain or diarrhea. 07/16/2020 Patient is currently sitting in a chair. No complaints of chest pain or shortness of breath. Titrate down oxygen to room air now. patient had SLOANE done today. Facial CT showed paranasal sinuses are grossly clear. Multiple cavitary petra lings in the bilateral premolar and molar teeth causing streak artifact limiting evaluation at these levels. Patient has been afebrile. No nausea vomiting or abdominal pain or diarrhea. Follow-up CBC and BMP tomorrow. Cardiology, CT surgery is on board. 07/17/2020 Patient is currently sitting in a chair comfortably no complaints of chest pain or shortness breath. 97% on room air. CT face showed multiple cavitary fillings in the bilateral premolar, molar teeth causing streak artifact limiting evaluation. Patient is scheduled for dental evaluation today. No fever no chills. No cough or sputum production. Patient is being treated insulin sliding scale. Also Actos and linagliptin and Amaryl. Lab data showed WBC 6.1 hemoglobin 10.5 and platelets 237, sodium 138 potassium 3.8 bicarb is 32 BUN 34 and creatinine 1.78, calcium 9.0 07/18/2020. Patient is currently sitting in the chair comfortably. Patient is scheduled for cardiac revascularization surgery for 1120. No complaints of ches t pain or shortness breath. Patient was started Levemir 10 units at bedtime and insulin sliding scale. Continue to hold oral hypoglycemics. Patient has been continued Lasix 40 mg IV daily. Nephrology and pulmonary is on board. 07/19/2020 Patient is currently sitting in a chair comfortably. No complaints of chest pain or shortness of this. No headache or dizziness or lightheadedness. No nausea vomiting abdominal pain or diarrhea. Patient is being continued Lasix IV 40 mg daily. Blood sugar is better controlled today. Continue with Levemir and insulin sliding scale and adjust dose as needed. Patient has been afebrile. Scheduled for cardiac revascularization surgery on 06/21/2020. Nephrology is on board. 07/20/2020 Patient is currently sitting in the seat comfortably. Still having bilateral lower extremity swelling and is being continued Lasix 40 mg every 24 hours. Saturating well on room air. No chest pain or shortness breath. Patient is being scheduled for coronary revascularization tomorrow.Laboratory data reviewed. 07/21/2020 Patient underwent two-vessel coronary artery bypass graft today. Patient is intubated and sedated and on mechanical ventilator for surgery. Chest x-ray showed satisfactory postoperative chest x-ray. Orogastric tube is present. Patient has been afebrile. Currently assist control with tidal volume 400 FiO2 50% and PEEP of 10. Chest tubes in place. No evidence of pneumothorax. Laboratory data showed WBC 16.4 hemoglobin 7.9 and platelets 109 BUN [address] surgery and pulmonary is on board. 07/22/2020 Patient is currently in MICU. Lying in the bed and is complaining of soreness at the surgical site. Patient was extubated yesterday. Currently on oxygen via nasal cannula. Patient is being continued on insulin drip, amiodarone and Primacor. Dopamine has been discontinued. Chest x-ray showed postsurgical changes correlate for bilateral infiltrate., Pleural effusion and venous congestion. Chest tubes in place. Lab data showed WBC 11.0 hemoglobin 6.4 and was given 1 unit of PRBC transfusion. Platelets 88 and BUN 27 and creatinine 1.[address] surgery is on board. Current medications reviewed. Objective - Vital Signs Vital signs: Vital Signs Temp 97.7 F 07/22/20 20:00 Pulse 71 07/22/20 21:00 Resp 15 07/22/20 21:00 BP 143/55 07/22/20 21:00 Pulse Ox 95 07/22/20 21:00 Intake & Output 07/22/20 07/22/20 07/23/20 06:59 18:59 06:59 Intake Total 2060.718 1475.789 198 Output Total 507 467 124 Balance 8726.888 3478.789 74 Weight 91.1 kg 91.1 kg Intake: IV 1626.0 742.5 198 Albumin Human 5% 500 ml 750 In Empty Bag 1 bag @ 250 mls/hr IVPB ONCE ONE Rx#: [id number] Cardiac Output 150 60 30 Nitroglycerin-D5w Pmx 50 1.5 mg In Dextrose/Water 1 250ml.bag @ 5 MCG/MIN 1.5 mls/hr IV .Q24H [facility] Rx#: [id number] Nitroglycerine 16.5 1.5 Pressure Bag 108 81 18 Sodium Chloride 0.9% 1, 600 600 150 000 ml @ 20 mls/hr IV . Q24H [facility] Rx#:[id number] Intake, IV Titration 434.718 149.289 0 Amount ACETAMINOPHEN IV (For NPO 100 ) 1,000 mg In Empty Bag 1 bag @ 400 mls/hr IVPB Q6HR [facility] Rx#:[id number] Clevidipine Butyrate 25 5.233 mg In Empty Bag 1 bag @ 1 MG/HR 2 mls/hr IV .Q24H [facility] Rx#:[id number] Dextrose 5% in Water 100 150 ml @ 618 mls/hr IV .Q10M PRN with Amiodarone 150 mg Rx#:[id number] Insulin Regular 100 unit 72.654 49.767 0 In Sodium Chloride 0.9% 100 ml @ Per Protocol IV .Q0M [facility] Rx#:[id number] Milrinone-D5w Pmx 20 mg 56.831 99.522 In Dextrose/Water 1 100ml .bag @ 0.15 MCG/KG/MIN 3. 893 mls/hr IV .Q24H [facility] Rx#:[id number] ceFAZolin 2 gm In Sodium 50 Chloride 0.9% 50 ml @ 100 mls/hr IVPB ONCE ONE Rx# :[id number] Blood Product 584 Rc Pheresis 2 As3 Unit 296 [id number] Rc Pheresis 2 As3 Unit 288 [id number] Output: Chest Tube Drainage 337 240 60 Chest Tube Left Anterior 83 100 40 Chest Mediastinal 254 140 20 Urine 170 227 64 Other: Voiding Method Indwelling Catheter Indwelling Catheter ABP, PAP, CO, CI - Last Documented Arterial Blood Pressure 98/73 Pulmonary Artery Pressure 50/21 Cardiac Output 4.5 Cardiac Index 2.4 - Exam PHYSICAL EXAMINATION: Patient is lying in the bed comfortably, no acute distress, awake alert and oriented.. HEENT: Normocephalic. Neck is supple. Pupils reactive. Nostrils clear. Oral cavity is moist. Ears reveal no drainage. Neck reveals no JVD, carotid bruits, or thyromegaly. CHEST EXAMINATION: Trachea is central. Symmetrical expansion. Bibasilar diminished sounds. No wheezing or rhonchi. Midsternal surgical site is packed. Chest tubes in place.. CARDIAC: Normal S1, S2 with no gallops. No murmurs ABDOMEN: Soft. Bowel sounds normal. No organomegaly. No abdominal bruits. Extremities: 2+ edema. No clubbing or cyanosis Neurologically awake, alert, oriented x3 with well-coordinated movements. No focal deficits noted Skin: No rash or skin lesions. Psychiatric: Coperative. Nonsuicidal Musculoskeletal: No joint swelling or deformity. Normal range of motion. - Labs CBC & Chem 7: 07/23/20 04:34 07/23/20 04:34 Labs: Abnormal Lab Results - Last 24 Hours (Table) 07/20/20 07/21/20 07/21/20 Range/Units 07:41 22:01 23:04 WBC (3.8-10.6) k/uL RBC (3.80-5.40) m/uL Hgb (11.4-16.0) gm/dL Hct (34.0-46.0) % Plt Count (150-450) k/uL Neutrophils # (1.3-7.7) k/uL Lymphocytes # (1.0-4.8) k/uL ABG pO2 139 H (83-108) mmHg ABG Total CO2 26 H (19-24) mmol/L ABG O2 Saturation 99.5 H (94-97) % BUN (7-17) mg/dL Creatinine (0.52-1.04) mg/dL Glucose (74-99) mg/dL POC Glucose (mg/dL) 171 H (75-99) mg/dL AST (14-36) U/L Total Protein (6.3-8.2) g/dL Crossmatch See Detail 07/22/20 07/22/20 07/22/20 Range/Units 00:08 00:58 01:53 WBC (3.8-10.6) k/uL RBC (3.80-5.40) m/uL Hgb (11.4-16.0) gm/dL Hct (34.0-46.0) % Plt Count (150-450) k/uL Neutrophils # (1.3-7.7) k/uL Lymphocytes # (1.0-4.8) k/uL ABG pO2 (83-108) mmHg ABG Total CO2 (19-24) mmol/L ABG O2 Saturation (94-97) % BUN (7-17) mg/dL Creatinine (0.52-1.04) mg/dL Glucose (74-99) mg/dL POC Glucose (mg/dL) 146 H 122 H 114 H (75-99) mg/dL AST (14-36) U/L Total Protein (6.3-8.2) g/dL Crossmatch 07/22/20 07/22/20 07/22/20 Range/Units 02:54 04:15 04:20 WBC 11.0 H (3.8-10.6) k/uL RBC 2.00 L (3.80-5.40) m/uL Hgb 6.4 L* (11.4-16.0) gm/dL Hct 19.1 L* (34.0-46.0) % Plt Count 88 L (150-450) k/uL Neutrophils # 9.9 H (1.3-7.7) k/uL Lymphocytes # 0.7 L (1.0-4.8) k/uL ABG pO2 (83-108) mmHg ABG Total CO2 (19-24) mmol/L ABG O2 Saturation (94-97) % BUN (7-17) mg/dL Creatinine (0.52-1.04) mg/dL Glucose (74-99) mg/dL POC Glucose (mg/dL) 151 H 154 H (75-99) mg/dL AST (14-36) U/L Total Protein (6.3-8.2) g/dL Crossmatch 07/22/20 07/22/20 07/22/20 Range/Units 04:20 05:09 06:03 WBC (3.8-10.6) k/uL RBC (3.80-5.40) m/uL Hgb (11.4-16.0) gm/dL Hct (34.0-46.0) % Plt Count (150-450) k/uL Neutrophils # (1.3-7.7) k/uL Lymphocytes # (1.0-4.8) k/uL ABG pO2 (83-108) mmHg ABG Total CO2 (19-24) mmol/L ABG O2 Saturation (94-97) % BUN 27 H (7-17) mg/dL Creatinine 1.99 H (0.52-1.04) mg/dL Glucose 141 H (74-99) mg/dL POC Glucose (mg/dL) 141 H 133 H (75-99) mg/dL AST 64 H (14-36) U/L Total Protein 5.3 L (6.3-8.2) g/dL Crossmatch 07/22/20 07/22/20 07/22/20 Range/Units 06:56 07:56 08:52 WBC (3.8-10.6) k/uL RBC (3.80-5.40) m/uL Hgb (11.4-16.0) gm/dL Hct (34.0-46.0) % Plt Count (150-450) k/uL Neutrophils # (1.3-7.7) k/uL Lymphocytes # (1.0-4.8) k/uL ABG pO2 (83-108) mmHg ABG Total CO2 (19-24) mmol/L ABG O2 Saturation (94-97) % BUN (7-17) mg/dL Creatinine (0.52-1.04) mg/dL Glucose (74-99) mg/dL POC Glucose (mg/dL) 125 H 107 H 110 H (75-99) mg/dL AST (14-36) U/L Total Protein (6.3-8.2) g/dL Crossmatch 07/22/20 07/22/20 07/22/20 Range/Units 10:11 10:44 10:46 WBC 17.4 H (3.8-10.6) k/uL RBC 2.38 L (3.80-5.40) m/uL Hgb 7.6 L (11.4-16.0) gm/dL Hct 22.7 L (34.0-46.0) % Plt Count 105 L (150-450) k/uL Neutrophils # (1.3-7.7) k/uL Lymphocytes # (1.0-4.8) k/uL ABG pO2 (83-108) mmHg ABG Total CO2 (19-24) mmol/L ABG O2 Saturation (94-97) % BUN (7-17) mg/dL Creatinine (0.52-1.04) mg/dL Glucose (74-99) mg/dL POC Glucose (mg/dL) 146 H 158 H (75-99) mg/dL AST (14-36) U/L Total Protein (6.3-8.2) g/dL Crossmatch 07/22/20 07/22/20 07/22/20 Range/Units 11:56 13:17 14:11 WBC (3.8-10.6) k/uL RBC (3.80-5.40) m/uL Hgb (11.4-16.0) gm/dL Hct (34.0-46.0) % Plt Count (150-450) k/uL Neutrophils # (1.3-7.7) k/uL Lymphocytes # (1.0-4.8) k/uL ABG pO2 (83-108) mmHg ABG Total CO2 (19-24) mmol/L ABG O2 Saturation (94-97) % BUN (7-17) mg/dL Creatinine (0.52-1.04) mg/dL Glucose (74-99) mg/dL POC Glucose (mg/dL) 176 H 183 H 188 H (75-99) mg/dL AST (14-36) U/L Total Protein (6.3-8.2) g/dL Crossmatch 07/22/20 07/22/20 07/22/20 Range/Units 16:04 17:49 19:21 WBC 16.6 H (3.8-10.6) k/uL RBC 2.39 L (3.80-5.40) m/uL Hgb 7.3 L (11.4-16.0) gm/dL Hct 22.5 L (34.0-46.0) % Plt Count 92 L (150-450) k/uL Neutrophils # (1.3-7.7) k/uL Lymphocytes # (1.0-4.8) k/uL ABG pO2 (83-108) mmHg ABG Total CO2 (19-24) mmol/L ABG O2 Saturation (94-97) % BUN (7-17) mg/dL Creatinine (0.52-1.04) mg/dL Glucose (74-99) mg/dL POC Glucose (mg/dL) 121 H 175 H (75-99) mg/dL AST (14-36) U/L Total Protein (6.3-8.2) g/dL Crossmatch 07/22/20 Range/Units 20:43 WBC (3.8-10.6) k/uL RBC (3.80-5.40) m/uL Hgb (11.4-16.0) gm/dL Hct (34.0-46.0) % Plt Count (150-450) k/uL Neutrophils # (1.3-7.7) k/uL Lymphocytes # (1.0-4.8) k/uL ABG pO2 (83-108) mmHg ABG Total CO2 (19-24) mmol/L ABG O2 Saturation (94-97) % BUN (7-17) mg/dL Creatinine (0.52-1.04) mg/dL Glucose (74-99) mg/dL POC Glucose (mg/dL) 177 H (75-99) mg/dL AST (14-36) U/L Total Protein (6.3-8.2) g/dL Crossmatch Assessment and Plan Assessment: Multivessel coronary artery disease. Status post two-vessel coronary artery bypass graft on 07/21/20 acute systolic CHF exacerbation, ejection fraction 30-35% and moderate MR Acute kidney injury. on stage IV chronic kidney disease Acute hypoxic respiratory failure secondary to both. on O2 via NC non-stemi with chest pain and elevated troponin. Diabetes mellitus 2 Hypertension Hyperlipidemia Ongoing nicotine addiction DVT prophylaxis Plan: this is a pleasant 70 years old female who presents with CHF and non-STEMI. Patient is status post CABG due to multivessel coronary disease. Preoperatively patient was started on dopamine drip and has been discontinued currently. Patient will be encouraged amiodarone drip. Currently on insulin drip for blood sugar control. Currently on aspirin metoprolol statins. CT surgery and cardiology is on board. Nephrology is following due to chronic kidney disease. will hold oral hypoglycemics and started on insulin regimen. on insulin drip now. Labs and medication were reviewed. Monitor lytes and vitals. DVT and GI prophylaxis. Further recommendations as per clinical course of the patient DVT prophylaxis : Heparin GI Prophylaxis: Pepcid PT/OT: Pending Prognosis is guarded Time with Patient: Greater than 30
--- NOTE | 2020-07-23 22:19 | P.PN ---
Subjective Progress Note Date: 07/23/20 Principal diagnosis: Acute non-ST elevated HI Multivessel coronary artery disease This is a pleasant 70 years old female with past medical history of diabetes mellitus, hypertension, hyperlipidemia, stage IV chronic kidney disease. He is a patient of Dr. Barnett presents because OF chest pain and progressive dyspnea over few days. Her chest pain started last Monday for 3-4 days ago, it improved gradually but got worse yesterday. Pain was coming and going. Last night it did not go away so decided to come to the hospital. Was about 5/70 severity on the left side, none dictated. Associated with orthopnea and paroxysmal nocturnal dyspnea. She has to sit up to avoid shortness of breath. She has some little cough and phlegm. Pathak catheter was placed in the emergency room. No GI or urinary symptoms initially patient admitted with oxygen supplemented via BiPAP machine including this morning, currently her breathing is improving and she is only on 4 L oxygen and is She denies smoking, alcohol or illicit drugs. Currently she is saturating 96% on 4 L nasal cannula, patient is afebrile. Lap showing WBC of 11.0 K, hemoglobin 11.3, INR is 1.0, sodium 135, creatinine is 1.8. Baseline 1.8-2.2. INR is normal 1.0, trace of BMP and liver enzymes are unremarkable. Troponin is elevated at 0.6 [place] 1[place] [address]. Physical exam, no espinal virus are not detected. Echocardiogram: October ejection fraction 30-35%, several wall motion abnormality chest x-ray: Bilateral lung capacity, edema or infection In the emergency room patient was started on aspirin, heparin drip, lorazepam, furosemide 40 mg IV once. 07/11/2020 Patient with minimal symptoms today however lying in bed most of the time. She has chest pain on and off Hemodynamically stable Creatinine stable at 1.9, nephrology on the case as patient is going for cardiac cath, adequate sodium bicarb today. 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 Nothing by mouth after midnight In the meantime patient remains on heparin drip, IV Lasix. Also she is on aspirin. 07/12/20 Patient remains with minimal symptoms while she is at rest. Chest pain on and off. Hemodynamically stable. And her creatinine only slightly up over the last 2 days 1.8, 1.9 and 2.0 today, tubular products fabricator stopped her IV Lasix and Cozaar as well. Patient underwent cardiac cath today and found to have severe triple vessel coronary artery disease, cardiothoracic surgery team is Consulted. Patient heparin drip was stopped and started on nitroglycerin drip. Lasix, Cozaar and D5W were stopped and patient was started on normal saline at 75 mL/h. May consider to stop normal saline tomorrow 07/13/2020 This is a [id number] years old female presents because of non-STEMI and ischemic cardiomyopathy with ejection fraction 30-35%. Underwent cardiac cath showing severe triple vessel coronary artery disease and isn't currently been evaluated by cardiothoracic surgery for bypass procedure. Also echocardiogram showing moderate mitral regurgitation and moderate pulmonary hypertension Also patient is followed closely by nephrology to follow her chronic kidney disease stage 3-4, currently her creatinine stable at 1.9, Cozaar was held. Hepatitis panel negative. Patient was sitting of double chair with no chest pain and no other symptoms. And she is hemodynamically stable 07/14/2020 Patient is currently sitting in chair comfortably. No complaints of chest pain shortness of breath. No headache or dizziness or lightheadedness. No fever no chills. No nausea vomiting or abdominal pain or diarrhea. Tolerating oral diet. Patient is being continued on aspirin statins and Imdur and metoprolol. 2D echocardiogram flexion fraction 30 to 35% with severe hypokinesis of the anterior apical, anteroseptal wall. Losartan is on hold due to elevated creatinine level. Cardiology and CT surgery is on board. Evaluating for revascularization surgery. Laboratory data showed sodium 136 potassium 4.1 BUN 38 and creatinine 1.89 07/15/2020 Patient is currently resting in the chair comfortably. No complaints of chest pain or shortness of breath. EKG showed sinus rhythm with persistent anterior notions in the precordial leads. Laboratory data showed WBC 6.6 hemoglobin 9.8 platelets 180, sodium 136 potassium 4.1 BUN 36 and creatinine 1.87 and magnesium 1.8 Lower extremity arterial duplex. The left side is normal. Possibly mild infra popliteal disease on the right. Perfusion pressures appear adequate. Vein mapping was done today. Denied any nausea vomiting abdominal pain or diarrhea. 07/16/2020 Patient is currently sitting in a chair. No complaints of chest pain or shortness of breath. Titrate down oxygen to room air now. patient had SLOANE done today. Facial CT showed paranasal sinuses are grossly clear. Multiple cavitary petra lings in the bilateral premolar and molar teeth causing streak artifact limiting evaluation at these levels. Patient has been afebrile. No nausea vomiting or abdominal pain or diarrhea. Follow-up CBC and BMP tomorrow. Cardiology, CT surgery is on board. 07/17/2020 Patient is currently sitting in a chair comfortably no complaints of chest pain or shortness breath. 97% on room air. CT face showed multiple cavitary fillings in the bilateral premolar, molar teeth causing streak artifact limiting evaluation. Patient is scheduled for dental evaluation today. No fever no chills. No cough or sputum production. Patient is being treated insulin sliding scale. Also Actos and linagliptin and Amaryl. Lab data showed WBC 6.1 hemoglobin 10.5 and platelets 237, sodium 138 potassium 3.8 bicarb is 32 BUN 34 and creatinine 1.78, calcium 9.0 07/18/2020. Patient is currently sitting in the chair comfortably. Patient is scheduled for cardiac revascularization surgery for 1120. No complaints of ches t pain or shortness breath. Patient was started Levemir 10 units at bedtime and insulin sliding scale. Continue to hold oral hypoglycemics. Patient has been continued Lasix 40 mg IV daily. Nephrology and pulmonary is on board. 07/19/2020 Patient is currently sitting in a chair comfortably. No complaints of chest pain or shortness of this. No headache or dizziness or lightheadedness. No nausea vomiting abdominal pain or diarrhea. Patient is being continued Lasix IV 40 mg daily. Blood sugar is better controlled today. Continue with Levemir and insulin sliding scale and adjust dose as needed. Patient has been afebrile. Scheduled for cardiac revascularization surgery on 06/21/2020. Nephrology is on board. 07/20/2020 Patient is currently sitting in the seat comfortably. Still having bilateral lower extremity swelling and is being continued Lasix 40 mg every 24 hours. Saturating well on room air. No chest pain or shortness breath. Patient is being scheduled for coronary revascularization tomorrow.Laboratory data reviewed. 07/21/2020 Patient underwent two-vessel coronary artery bypass graft today. Patient is intubated and sedated and on mechanical ventilator for surgery. Chest x-ray showed satisfactory postoperative chest x-ray. Orogastric tube is present. Patient has been afebrile. Currently assist control with tidal volume 400 FiO2 50% and PEEP of 10. Chest tubes in place. No evidence of pneumothorax. Laboratory data showed WBC 16.4 hemoglobin 7.9 and platelets 109 BUN [address] surgery and pulmonary is on board. 07/22/2020 Patient is currently in MICU. Lying in the bed and is complaining of soreness at the surgical site. Patient was extubated yesterday. Currently on oxygen via nasal cannula. Patient is being continued on insulin drip, amiodarone and Primacor. Dopamine has been discontinued. Chest x-ray showed postsurgical changes correlate for bilateral infiltrate., Pleural effusion and venous congestion. Chest tubes in place. Lab data showed WBC 11.0 hemoglobin 6.4 and was given 1 unit of PRBC transfusion. Platelets 88 and BUN 27 and creatinine 1.[address] surgery is on board. 07/23/2020 Patient is currently in the MICU. Sitting in the chair. Awake alert and oriented x3. Patient feels better today. Currently on oxygen via nasal cannula. Chest tubes remain in place. Patient is being continued on Primacor and insulin drip at 2 units/h. Denied any complaints of chest pain or worsening shortness of breath. Patient is also on milrinone drip. Chest x-ray showed slightly increased interstitial markings with diminished lung volume. No significant change. Laboratory data showed WBC 18.9 hemoglobin 8.6 and platelets 101 Sodium 133 potassium 4.1 chloride 103, BUN 30 and creatinine increased to 2.81 today. Blood sugar is well controlled. AST 891 ALT 127 alk phos 64. Current medications reviewed. Objective - Vital Signs Vital signs: Vital Signs Temp 98.7 F 07/23/20 20:00 Pulse 68 07/23/20 20:19 Resp 38 H 07/23/20 20:00 BP 104/91 07/23/20 20:00 Pulse Ox 98 07/23/20 20:00 Intake & Output 07/23/20 07/23/20 07/24/20 06:59 18:59 06:59 Intake Total 0363.259 3572.842 52.049 Output Total 546 340 Balance 858.852 985.842 52.049 Weight 95.4 kg Intake: IV 848 646 Cardiac Output 120 10 Pressure Bag 78 36 Sodium Chloride 0.9% 1, 650 600 000 ml @ 20 mls/hr IV . Q24H [facility] Rx#:[id number] Intake, IV Titration 356.852 79.842 52.049 Amount Amiodarone 450 mg In 306.117 Dextrose 5% in Water 250 ml @ 0.5 MG/MIN 16.667 mls/hr IV .Q15H PRN Rx#: [id number] Insulin Regular 100 unit 50.735 20.604 52.049 In Sodium Chloride 0.9% 100 ml @ Per Protocol IV .Q0M [facility]ALLY Rx#:[id number] Milrinone-D5w Pmx 20 mg 59.238 In Dextrose/Water 1 100ml .bag @ 0.15 MCG/KG/MIN 3. 893 mls/hr IV .Q24H [facility]ALLY Rx#:[id number] Oral 200 600 Output: Chest Tube Drainage 290 Chest Tube Left Anterior 200 Chest Mediastinal 90 Urine 256 340 Other: Voiding Method Indwelling Catheter Indwelling Catheter ABP, PAP, CO, CI - Last Documented Arterial Blood Pressure 98/73 Pulmonary Artery Pressure 50/29 Cardiac Output 5.5 Cardiac Index 2.9 - Exam PHYSICAL EXAMINATION: Patient is lying in the bed comfortably, no acute distress, awake alert and oriented.. HEENT: Normocephalic. Neck is supple. Pupils reactive. Nostrils clear. Oral cavity is moist. Ears reveal no drainage. Neck reveals no JVD, carotid bruits, or thyromegaly. CHEST EXAMINATION: Trachea is central. Symmetrical expansion. Bibasilar diminished sounds. No wheezing or rhonchi. Midsternal surgical site is packed. Chest tubes in place.. CARDIAC: Normal S1, S2 with no gallops. No murmurs ABDOMEN: Soft. Bowel sounds normal. No organomegaly. No abdominal bruits. Extremities: 2+ edema. No clubbing or cyanosis Neurologically awake, alert, oriented x3 with well-coordinated movements. No focal deficits noted Skin: No rash or skin lesions. Psychiatric: Coperative. Nonsuicidal Musculoskeletal: No joint swelling or deformity. Normal range of motion. - Labs CBC & Chem 7: 07/23/20 04:34 07/23/20 04:34 Labs: Abnormal Lab Results - Last 24 Hours (Table) 07/22/20 07/22/20 07/23/20 Range/Units 22:02 23:37 00:59 WBC (3.8-10.6) k/uL RBC (3.80-5.40) m/uL Hgb (11.4-16.0) gm/dL Hct (34.0-46.0) % Plt Count (150-450) k/uL Neutrophils # (1.3-7.7) k/uL Sodium (137-145) mmol/L Carbon Dioxide (22-30) mmol/L BUN (7-17) mg/dL Creatinine (0.52-1.04) mg/dL Glucose (74-99) mg/dL POC Glucose (mg/dL) 143 H 113 H 100 H (75-99) mg/dL Calcium (8.4-10.2) mg/dL AST (14-36) U/L ALT (4-34) U/L Total Protein (6.3-8.2) g/dL Albumin (3.5-5.0) g/dL 07/23/20 07/23/20 07/23/20 Range/Units 01:57 02:59 04:34 WBC 18.9 H (3.8-10.6) k/uL RBC 2.81 L (3.80-5.40) m/uL Hgb 8.6 L (11.4-16.0) gm/dL Hct 26.3 L (34.0-46.0) % Plt Count 101 L (150-450) k/uL Neutrophils # 16.6 H (1.3-7.7) k/uL Sodium (137-145) mmol/L Carbon Dioxide (22-30) mmol/L BUN (7-17) mg/dL Creatinine (0.52-1.04) mg/dL Glucose (74-99) mg/dL POC Glucose (mg/dL) 154 H 135 H (75-99) mg/dL Calcium (8.4-10.2) mg/dL AST (14-36) U/L ALT (4-34) U/L Total Protein (6.3-8.2) g/dL Albumin (3.5-5.0) g/dL 07/23/20 07/23/20 07/23/20 Range/Units 04:34 06:39 08:36 WBC (3.8-10.6) k/uL RBC (3.80-5.40) m/uL Hgb (11.4-16.0) gm/dL Hct (34.0-46.0) % Plt Count (150-450) k/uL Neutrophils # (1.3-7.7) k/uL Sodium 133 L (137-145) mmol/L Carbon Dioxide 21 L (22-30) mmol/L BUN 30 H (7-17) mg/dL Creatinine 2.81 H (0.52-1.04) mg/dL Glucose 110 H (74-99) mg/dL POC Glucose (mg/dL) 149 H 145 H (75-99) mg/dL Calcium 8.1 L (8.4-10.2) mg/dL AST 891 H (14-36) U/L ALT 127 H (4-34) U/L Total Protein 5.0 L (6.3-8.2) g/dL Albumin 3.2 L (3.5-5.0) g/dL 07/23/20 07/23/20 07/23/20 Range/Units 10:12 12:16 15:48 WBC (3.8-10.6) k/uL RBC (3.80-5.40) m/uL Hgb (11.4-16.0) gm/dL Hct (34.0-46.0) % Plt Count (150-450) k/uL Neutrophils # (1.3-7.7) k/uL Sodium (137-145) mmol/L Carbon Dioxide (22-30) mmol/L BUN (7-17) mg/dL Creatinine (0.52-1.04) mg/dL Glucose (74-99) mg/dL POC Glucose (mg/dL) 117 H 102 H 141 H (75-99) mg/dL Calcium (8.4-10.2) mg/dL AST (14-36) U/L ALT (4-34) U/L Total Protein (6.3-8.2) g/dL Albumin (3.5-5.0) g/dL 07/23/20 07/23/20 Range/Units 17:40 20:17 WBC (3.8-10.6) k/uL RBC (3.80-5.40) m/uL Hgb (11.4-16.0) gm/dL Hct (34.0-46.0) % Plt Count (150-450) k/uL Neutrophils # (1.3-7.7) k/uL Sodium (137-145) mmol/L Carbon Dioxide (22-30) mmol/L BUN (7-17) mg/dL Creatinine (0.52-1.04) mg/dL Glucose (74-99) mg/dL POC Glucose (mg/dL) 148 H 162 H (75-99) mg/dL Calcium (8.4-10.2) mg/dL AST (14-36) U/L ALT (4-34) U/L Total Protein (6.3-8.2) g/dL Albumin (3.5-5.0) g/dL Assessment and Plan Assessment: Multivessel coronary artery disease. Status post two-vessel coronary artery bypass graft on 07/21/20 acute systolic CHF exacerbation, ejection fraction 30-35% and moderate MR Acute kidney injury. on stage IV chronic kidney disease. Acute hypoxic respiratory failure secondary to both. on O2 via NC non-stemi with chest pain and elevated troponin. Diabetes mellitus 2 Hypertension Hyperlipidemia Ongoing nicotine addiction DVT prophylaxis Plan: this is a pleasant 70 years old female who presents with CHF and non-STEMI. Patient is status post CABG due to multivessel coronary disease. Preoperatively patient was started on dopamine drip and has been discontinued currently. Patient will be encouraged amiodarone drip. Currently on insulin drip for blood sugar control. Currently on aspirin metoprolol statins. CT surgery and cardiology is on board. Nephrology is following due to acute on chronic kidney disease. will hold oral hypoglycemics and started on insulin regimen. on insulin drip now. Labs and medication were reviewed. Monitor lytes and vitals. DVT and GI prophylaxis. Further recommendations as per clinical course of the patient DVT prophylaxis : Heparin GI Prophylaxis: Pepcid PT/OT: Pending Prognosis is guarded Time with Patient: Greater than 30
[2020-07-24] MEDS: HEPARIN SODIUM,PORCINE/PF 5,000 UNIT/0.5 ML SYRINGE SQ SCH (00:14)
[2020-07-24 00:19] LABS: Glucose,Whole Blood 106 mg/dL (75-99)
[2020-07-24 02:21] LABS: Glucose,Whole Blood 119 mg/dL (75-99)
[2020-07-24 03:57] LABS: Glucose,Whole Blood 113 mg/dL (75-99)
[2020-07-24 05:19] LABS: Albumin 2.8 g/dL (3.5-5.0); Calcium 7.7 mg/dL (8.4-10.2); Potassium 4.2 mmol/L (3.5-5.1); Total Protein 4.6 g/dL (6.3-8.2)
[2020-07-24 05:29] LABS: Glucose,Whole Blood 119 mg/dL (75-99)
[2020-07-24 06:10] LABS: Basophils % (A) 0 %; Eosinophils % (A) 0 %; HCT 25.3 % (34.0-46.0); HGB 8.1 gm/dL (11.4-16.0); Lymphocytes # (A) 2.6 k/uL (1.0-4.8); Lymphocytes % (A) 18 %; MCH 30.1 pg (25.0-35.0); MCHC 31.9 g/dL (31.0-37.0); MCV 94.4 fL (80.0-100.0); Mean Platelet Volume 10.4; Monocytes # (A) 0.5 k/uL (0-1.0); Monocytes % (A) 4 %; Neutrophils # (A) 10.9 k/uL (1.3-7.7); Neutrophils % (A) 77 %; Poikilocytosis Slight; RBC 2.68 m/uL (3.80-5.40); RDW 15.4 % (11.5-15.5); WBC 14.1 k/uL (3.8-10.6)
[2020-07-24 06:31] LABS: Anisocytosis (M) Present; Polychromasia Present
[2020-07-24 06:32] LABS: Platelet Count 74 k/uL (150-450)
[2020-07-24] MEDS ORDERED: CALCIUM GLUCONATE 2 GM in SODIUM CHLORIDE 0.9% 100 ML IVPB ONE (06:45)
[2020-07-24] MEDS: INSULIN ASPART (NovoLOG) 100 UNIT/ML VIAL SQ SCH ×4 (07:16→20:35)
[2020-07-24] MEDS: IPRATROPIUM-ALBUTEROL 3 ML NEB INHALATION SCH ×4 (07:17→19:01)
--- NOTE | 2020-07-24 07:47 | XR ---
EXAMINATION TYPE: XR chest 1V portable DATE OF EXAM: 07/24/2020 COMPARISON: 07/23/2020. HISTORY: Shortness of breath. TECHNIQUE: Single frontal view of the chest is obtained. FINDINGS: There is slightly increased interstitial markings as seen yesterday in this could be due t o pulmonary vascular congestion and mild CHF or chronic lung disease. Sternotomy wires and left atria l appendage clip is noted. There is cardiomegaly. No significant pleural effusion is seen. Interval removal of Eden-Arthur catheter. Eden-Arthur sheath is in place. Visualization of the lower aspect of the abdomen is limited due to obscuration by multiple loops of c atheters overlying the abdomen. IMPRESSION: Limited study. Interval removal of Eden-Arthur catheter.
[2020-07-24] MEDS: PANTOPRAZOLE 40 MG TABLET PO SCH (08:02)
--- NOTE | 2020-07-24 08:45 | P.PN ---
Subjective Progress Note Date: 07/24/20 Principal diagnosis: Symptomatic diffuse multivessel coronary artery disease, non-STEMI this admission, acute on chronic systolic congestive heart failure, EF 30-35%, moderate mitral valve regurgitation, functional. Previous medical history of evidence of old anterior wall myocardial infarction, chronic kidney disease stage IV, diabetes mellitus type 2, hypertension, hyperlipidemia, lifetime nonsmoker with severe obstruction and preoperative FEV1 41% of predicted, obesity, and family history of early onset coronary artery disease with her father having a myocardial infarction in his mid 40s POD #3 double vessel coronary artery bypass grafting using the left internal loida terrell artery to left anterior descending artery, reverse saphenous vein graft from the aorta to the right coronary artery, mitral valve repair with reduction posterior annuloplasty using 26 mm AnnuloFlex band, exclusion of the left atrial appendage using a 35 mm AtriClip, endoscopic harvesting of the left greater saphenous vein from the groin to below the knee level, intraoperative graft flow measurements using the Mobile Location, IPstim system, intraoperative transesophageal echocardiogram and epi-aortic scanning. Postoperative acute blood loss anemia and thrombocytopenia, expected given hemodilution and cardiopulmonary bypass pump Atrial fibrillation with rapid ventricular response, known common occurrence after open heart surgery, currently sinus Elevated transaminases, likely from congestion The patient's currently sitting up in a recliner in the intensive care unit in no acute distress. Denies pain, shortness of breath. No further complaints of nausea or emesis. Currently in sinus bradycardia with heart rate in the mid 50s, hemodynamically stable. Urine output slightly better at 30-40 mL/hr overnight with 845 mL in 24 hours. She has had no more rapid afib. Hgb 8.1, plt 74. Creatinine up to 2.85, AST 1043, ALT 104. Right internal jugular Cordis remains present, swan/chest tubes discontinued yesterday. Needs a lot of encouragement to use incentive spirometer, slightly better effort. Did ambulate out to perez once yesterday. No other new concerns. Objective - Vital Signs Vital signs: Vital Signs Temp 99.3 F 07/24/20 04:00 Pulse 56 L 07/24/20 07:19 Resp 19 07/24/20 07:00 BP 122/58 07/24/20 07:00 Pulse Ox 99 07/24/20 07:00 Intake & Output 07/23/20 07/24/20 07/24/20 18:59 06:59 18:59 Intake Total 1325.842 430.006 23 Output Total 340 505 40 Balance 985.842 -74.994 -17 Weight 95.7 kg Intake: IV 646 352 23 Cardiac Output 10 Pressure Bag 36 42 3 Sodium Chloride 0.9% 1, 600 310 20 000 ml @ 20 mls/hr IV . Q24H [facility] Rx#:[id number] Intake, IV Titration 79.842 78.006 Amount Insulin Regular 100 unit 20.604 78.006 In Sodium Chloride 0.9% 100 ml @ Per Protocol IV .Q0M [facility] Rx#:[id number] Milrinone-D5w Pmx 20 mg 59.238 In Dextrose/Water 1 100ml .bag @ 0.15 MCG/KG/MIN 3. 893 mls/hr IV .Q24H [facility] Rx#:[id number] Oral 600 Output: Urine 340 505 40 Other: Voiding Method Indwelling Catheter Indwelling Catheter ABP, PAP, CO, CI - Last Documented Arterial Blood Pressure 98/73 Pulmonary Artery Pressure 50/29 Cardiac Output 5.5 Cardiac Index 2.9 - Exam CONSTITUTIONAL: Appears comfortable, cooperative, no acute distress RESPIRATORY: Lungs sounds diminished bilaterally. Respirations even, nonlabored. Currently on 2 L nasal cannula with oxygen saturation 100%. Able to achieve 750 mL on incentive spirometry with better effort. Strong non- productive cough. CARDIOVASCULAR: S1, S2 present. Slow but regular rate and rhythm, sinus bradycardia on telemetry with heart rate in the mid 50s. Sternum stable. Palpable peripheral pulses bilaterally. Trace generalized extremity edema present. No calf pain or tenderness noted. Heart hugger in place with patient demonstrating appropriate use. Antiembolism stockings, SCDs present. GASTROINTESTINAL: Abdomen soft, nontender, nondistended. Hypoactive bowel sounds present 4 quadrants. Tolerating full liquids. Positive flatus GENITOURINARY: Tapia present draining clear, yellow urine. Output overnight 30-40 mL per hour last night INTEGUMENTARY: Skin is warm and dry, pale. Anterior chest incision well approximated and covered with dry intact dressing. EVH site well approximated without redness or drainage. NEUROLOGIC: Cranial nerves II through XII intact MUSKULOSKELETAL: Able to move all extremities, strength equal but weak bilaterally PSYCHIATRIC: Alert and oriented to person place and time, appropriate affect, intact judgment and insight INVASIVE LINES AND TUBES: A/V epicardial pacemaker wires present, connected to generator, backup rate 50 bpm. Right internal jugular Cordis present. CVP 10- 14 overnight. - Allied health notes Allied health notes reviewed: nursing - Labs CBC & Chem 7: 07/24/20 04:37 07/24/20 04:37 Labs: Abnormal Lab Results - Last 24 Hours (Table) 07/23/20 07/23/20 07/23/20 Range/Units 08:36 10:12 12:16 WBC (3.8-10.6) k/uL RBC (3.80-5.40) m/uL Hgb (11.4-16.0) gm/dL Hct (34.0-46.0) % Plt Count (150-450) k/uL Neutrophils # (1.3-7.7) k/uL Sodium (137-145) mmol/L Carbon Dioxide (22-30) mmol/L BUN (7-17) mg/dL Creatinine (0.52-1.04) mg/dL Glucose (74-99) mg/dL POC Glucose (mg/dL) 145 H 117 H 102 H (75-99) mg/dL Calcium (8.4-10.2) mg/dL AST (14-36) U/L ALT (4-34) U/L Alkaline Phosphatase (38-126) U/L Total Protein (6.3-8.2) g/dL Albumin (3.5-5.0) g/dL 07/23/20 07/23/20 07/23/20 Range/Units 15:48 17:40 20:17 WBC (3.8-10.6) k/uL RBC (3.80-5.40) m/uL Hgb (11.4-16.0) gm/dL Hct (34.0-46.0) % Plt Count (150-450) k/uL Neutrophils # (1.3-7.7) k/uL Sodium (137-145) mmol/L Carbon Dioxide (22-30) mmol/L BUN (7-17) mg/dL Creatinine (0.52-1.04) mg/dL Glucose (74-99) mg/dL POC Glucose (mg/dL) 141 H 148 H 162 H (75-99) mg/dL Calcium (8.4-10.2) mg/dL AST (14-36) U/L ALT (4-34) U/L Alkaline Phosphatase (38-126) U/L Total Protein (6.3-8.2) g/dL Albumin (3.5-5.0) g/dL 07/23/20 07/24/20 07/24/20 Range/Units 21:59 00:16 02:19 WBC (3.8-10.6) k/uL RBC (3.80-5.40) m/uL Hgb (11.4-16.0) gm/dL Hct (34.0-46.0) % Plt Count (150-450) k/uL Neutrophils # (1.3-7.7) k/uL Sodium (137-145) mmol/L Carbon Dioxide (22-30) mmol/L BUN (7-17) mg/dL Creatinine (0.52-1.04) mg/dL Glucose (74-99) mg/dL POC Glucose (mg/dL) 141 H 106 H 119 H (75-99) mg/dL Calcium (8.4-10.2) mg/dL AST (14-36) U/L ALT (4-34) U/L Alkaline Phosphatase (38-126) U/L Total Protein (6.3-8.2) g/dL Albumin (3.5-5.0) g/dL 07/24/20 07/24/20 07/24/20 Range/Units 03:56 04:37 04:37 WBC 14.1 H (3.8-10.6) k/uL RBC 2.68 L (3.80-5.40) m/uL Hgb 8.1 L (11.4-16.0) gm/dL Hct 25.3 L (34.0-46.0) % Plt Count 74 L (150-450) k/uL Neutrophils # 10.9 H (1.3-7.7) k/uL Sodium 132 L (137-145) mmol/L Carbon Dioxide 18 L (22-30) mmol/L BUN 35 H (7-17) mg/dL Creatinine 2.85 H (0.52-1.04) mg/dL Glucose 105 H (74-99) mg/dL POC Glucose (mg/dL) 113 H (75-99) mg/dL Calcium 7.7 L (8.4-10.2) mg/dL AST 1043 H (14-36) U/L ALT 104 H (4-34) U/L Alkaline Phosphatase 160 H (38-126) U/L Total Protein 4.6 L (6.3-8.2) g/dL Albumin 2.8 L (3.5-5.0) g/dL 07/24/20 Range/Units 05:28 WBC (3.8-10.6) k/uL RBC (3.80-5.40) m/uL Hgb (11.4-16.0) gm/dL Hct (34.0-46.0) % Plt Count (150-450) k/uL Neutrophils # (1.3-7.7) k/uL Sodium (137-145) mmol/L Carbon Dioxide (22-30) mmol/L BUN (7-17) mg/dL Creatinine (0.52-1.04) mg/dL Glucose (74-99) mg/dL POC Glucose (mg/dL) 119 H (75-99) mg/dL Calcium (8.4-10.2) mg/dL AST (14-36) U/L ALT (4-34) U/L Alkaline Phosphatase (38-126) U/L Total Protein (6.3-8.2) g/dL Albumin (3.5-5.0) g/dL - Imaging and Cardiology Chest x-ray: image reviewed Assessment and Plan Assessment: 1. Symptomatic diffusely calcified multivessel coronary artery disease, non-[facility] this admission, status post 2 vessel CABG 2. Acute on chronic systolic congestive heart failure, EF 30-35% 3. Moderate mitral valve regurgitation on SLOANE, status post 26 mm AnnuloFlex band 4. Dyspnea on admission, secondary to acute heart failure, proBNP on admission 14,500 5. Chronic kidney disease stage IV, baseline creatinine around 1.9 per nephrology 6. Diabetes mellitus type 2, hemoglobin A1c is 8.7% 7. Hypertension 8. Hyperlipidemia, treated, cholesterol 157, LDL 75 9. Lifetime nonsmoker 10. Severe obstruction, preoperative FEV1 41% of predicted with moderate increased operative risk per pulmonology 11. Family history of early onset coronary artery disease with her father having a myocardial infarction in his mid 40s 12. Evidence of old anterior wall myocardial infarction 13. Postoperative acute blood loss anemia and thrombocytopenia, expected 14. Atrial fibrillation with rapid ventricular response, currently sinus 15. Elevation of transaminases, likely from congestion Plan: 1. Continue to optimize medical management with low dose aspirin, Plavix, beta charity. Continue statin on hold secondary to increased transaminases, will r eintroduce when AST/ALT normalize 2. Amiodarone discontinued due to elevated liver enzymes. No anticoagulation at this point 3. Wean oxygen as tolerated. Encourage incentive spirometry use 10x every hour while, bronchodilators per pulmonology 4. Increase activity, ambulate as tolerated. PT/OT/cardiac rehab consulted 5. Will monitor daily labs and CXR. Decision on Lasix administration deferred to nephrology. Ca replaced. HIT panel sent 6. Insulin management per primary care. Patient need tight blood sugar control to promote healing, union of the sternal bone 7. GI/DVT prophylaxis 8. Continue tapia catheter for another 24 hours 9. Strict accurate I/Os. Daily weights 10. Pain control with current medication regimen. No toradol due to CKD 11. More recommendations to follow Time with Patient: Greater than 30
[2020-07-24] MEDS ORDERED: ASPIRIN 325 MG TAB PO SCH (09:00)
[2020-07-24] MEDS ORDERED: ASPIRIN 81 MG PO ONE (09:00)
[2020-07-24] MEDS: allopurinoL 100 MG TAB PO SCH (09:58)
[2020-07-24] MEDS: ASPIRIN 81 MG PO SCH (09:58)
[2020-07-24] MEDS: METOPROLOL TARTRATE 12.5 MG TAB PO SCH (09:59)
[2020-07-24] MEDS: carvediloL 3.125 MG TAB PO SCH ×2 (10:00→17:25)
--- NOTE | 2020-07-24 10:40 | P.PN ---
Subjective Patient is seen in follow-up for chronic kidney disease. Patient has chronic kidney disease stage IV with baseline creatinine in the range of 1.7-2. She underwent CABG on July 21. Received a unit of blood July 22. Sitting up in chair. No chest pain or shortness of breath. Urine output about 30 mL an hour. Oral intake fair. Vital signs are stable. General: The patient appeared well nourished and normally developed. HEENT: On nasal cannula. LUNGS: Breath sounds decreased. HEART: Rate and Rhythm are regular. ABDOMEN: Soft, no distention. EXTREMITITES: 1+ edema. Objective - Vital Signs Vital signs: Vital Signs Temp 98.0 F 07/24/20 08:00 Pulse 70 07/24/20 10:00 Resp 25 H 07/24/20 10:00 BP 135/57 07/24/20 10:00 Pulse Ox 98 07/24/20 10:00 Intake & Output 07/23/20 07/24/20 07/24/20 18:59 06:59 18:59 Intake Total 1325.842 430.006 92 Output Total 340 505 125 Balance 985.842 -74.994 -33 Weight 95.7 kg Intake: IV 646 352 92 Cardiac Output 10 Pressure Bag 36 42 12 Sodium Chloride 0.9% 1, 600 310 80 000 ml @ 20 mls/hr IV . Q24H [facility] Rx#:[id number] Intake, IV Titration 79.842 78.006 Amount Insulin Regular 100 unit 20.604 78.006 In Sodium Chloride 0.9% 100 ml @ Per Protocol IV .Q0M [facility] Rx#:[id number] Milrinone-D5w Pmx 20 mg 59.238 In Dextrose/Water 1 100ml .bag @ 0.15 MCG/KG/MIN 3. 893 mls/hr IV .Q24H [facility] Rx#:[id number] Oral 600 Output: Urine 340 505 125 Other: Voiding Method Indwelling Catheter Indwelling Catheter ABP, PAP, CO, CI - Last Documented Arterial Blood Pressure 98/73 Pulmonary Artery Pressure 50/29 Cardiac Output 5.5 Cardiac Index 2.9 - Labs CBC & Chem 7: 07/24/20 04:37 07/24/20 04:37 Labs: Abnormal Lab Results - Last 24 Hours (Table) 07/23/20 07/23/20 07/23/20 Range/Units 12:16 15:48 17:40 WBC (3.8-10.6) k/uL RBC (3.80-5.40) m/uL Hgb (11.4-16.0) gm/dL Hct (34.0-46.0) % Plt Count (150-450) k/uL Neutrophils # (1.3-7.7) k/uL Sodium (137-145) mmol/L Carbon Dioxide (22-30) mmol/L BUN (7-17) mg/dL Creatinine (0.52-1.04) mg/dL Glucose (74-99) mg/dL POC Glucose (mg/dL) 102 H 141 H 148 H (75-99) mg/dL Calcium (8.4-10.2) mg/dL AST (14-36) U/L ALT (4-34) U/L Alkaline Phosphatase (38-126) U/L Total Protein (6.3-8.2) g/dL Albumin (3.5-5.0) g/dL 07/23/20 07/23/20 07/24/20 Range/Units 20:17 21:59 00:16 WBC (3.8-10.6) k/uL RBC (3.80-5.40) m/uL Hgb (11.4-16.0) gm/dL Hct (34.0-46.0) % Plt Count (150-450) k/uL Neutrophils # (1.3-7.7) k/uL Sodium (137-145) mmol/L Carbon Dioxide (22-30) mmol/L BUN (7-17) mg/dL Creatinine (0.52-1.04) mg/dL Glucose (74-99) mg/dL POC Glucose (mg/dL) 162 H 141 H 106 H (75-99) mg/dL Calcium (8.4-10.2) mg/dL AST (14-36) U/L ALT (4-34) U/L Alkaline Phosphatase (38-126) U/L Total Protein (6.3-8.2) g/dL Albumin (3.5-5.0) g/dL 07/24/20 07/24/20 07/24/20 Range/Units 02:19 03:56 04:37 WBC 14.1 H (3.8-10.6) k/uL RBC 2.68 L (3.80-5.40) m/uL Hgb 8.1 L (11.4-16.0) gm/dL Hct 25.3 L (34.0-46.0) % Plt Count 74 L (150-450) k/uL Neutrophils # 10.9 H (1.3-7.7) k/uL Sodium (137-145) mmol/L Carbon Dioxide (22-30) mmol/L BUN (7-17) mg/dL Creatinine (0.52-1.04) mg/dL Glucose (74-99) mg/dL POC Glucose (mg/dL) 119 H 113 H (75-99) mg/dL Calcium (8.4-10.2) mg/dL AST (14-36) U/L ALT (4-34) U/L Alkaline Phosphatase (38-126) U/L Total Protein (6.3-8.2) g/dL Albumin (3.5-5.0) g/dL 07/24/20 07/24/20 Range/Units 04:37 05:28 WBC (3.8-10.6) k/uL RBC (3.80-5.40) m/uL Hgb (11.4-16.0) gm/dL Hct (34.0-46.0) % Plt Count (150-450) k/uL Neutrophils # (1.3-7.7) k/uL Sodium 132 L (137-145) mmol/L Carbon Dioxide 18 L (22-30) mmol/L BUN 35 H (7-17) mg/dL Creatinine 2.85 H (0.52-1.04) mg/dL Glucose 105 H (74-99) mg/dL POC Glucose (mg/dL) 119 H (75-99) mg/dL Calcium 7.7 L (8.4-10.2) mg/dL AST 1043 H (14-36) U/L ALT 104 H (4-34) U/L Alkaline Phosphatase 160 H (38-126) U/L Total Protein 4.6 L (6.3-8.2) g/dL Albumin 2.8 L (3.5-5.0) g/dL Assessment and Plan Plan: Assessment: 1. 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 Baseline creatinine 1.5-2. 2. Coronary artery disease status post cardiac catheterization on 07/12/2020. Status post CABG July 21. 3. Acute on chronic systolic CHF with ejection fraction of 30-35% with moderate mitral regurgitation and pulmonary hypertension. 4. Metabolic acidosis secondary to chronic kidney disease/ina. 5. Diabetes mellitus. 6. Volume overload. 7. Acute hypoxic respiratory failure. 8. Acute kidney injury secondary to ATN secondary to hemodynamic instability and acute blood loss anemia. Creatinine 12.81 today. 9. A. fib. On Lopressor. 10. Anemia of chronic kidney disease and component of acute blood loss. Status post blood transfusion. On Aranesp. 11. Hypervolemic hyponatremia. Plan: Add Lasix 40 mg IV twice daily. Add oral bicarbonate. Avoid nephrotoxins. Continue to monitor renal function and urine output. Encouraged oral intake.
[2020-07-24] MEDS: SODIUM BICARBONATE TAB 650 MG TAB PO SCH ×2 (10:55→20:35)
[2020-07-24] MEDS: FUROSEMIDE 10 MG/ML 4 ML VIAL IV SCH ×2 (10:55→20:35)
[2020-07-24] MEDS: SODIUM CHLORIDE 0.9% 1,000 ML IV SCH (10:56)
[2020-07-24 11:52] LABS: Glucose,Whole Blood 209 mg/dL (75-99)
--- NOTE | 2020-07-24 11:54 | P.PN ---
Subjective This is a pleasant 70-year-old female past medical history significant for diabetes mellitus, hypertension, dyslipidemia and chronic kidney disease. She does not follow with a service assistant on a regular basis. She presented to the hospital with symptoms of unstable angina and was ruled in for non-ST elevated myocardial infarction. Echocardiogram revealed severe hypokinesia of the anteroapical wall and apical segments with ejection fraction of 30%, repeat yesterday reveals EF of 30-35%. She underwent cardiac catheterization revealing triple-vessel coronary artery disease with critical lesion in the mid LAD, significant disease in the mid RCA and moderate disease in the circumflex artery. She has been seen in evaluation by CT surgery. She is seen and examined sitting up in the recliner in no acute distress. She continues to have shortness of breath with exertion and is comfortable at rest. She has had no symptoms of chest discomfort. Repeat EKG this morning reveals sinus mechanism with ongoing persistent T-wave inversions in the precordial leads. No significant changes noted. Blood pressure 130/86 heart rate 70 afebrile maintaining oxygen saturation on nasal cannula. Laboratory data reviewed, WBC 6.6, hemoglobin 9.8, platelets 180, sodium 136, potassium 4.1, creatinine 1.87 and magnesium 1.8. Currently maintained on aspirin 81 mg daily, atorvastatin 80 mg daily, Imdur 30 mg daily and metoprolol 50 mg twice a day. 07/24/2020 Pt is seen and examined sitting up in the recliner in no acute distress. She de nies chest pain or shortness of breath. Blood pressure 143/59 heart rate 68 afebrile and maintaining oxygen saturation on nasal cannula. Laboratory data reviewed, WBC 14.1, hgb 8.1, plt 74, sodium 132, potassium 4.2, creatinine 2.85, AST 1043, ALT 104. Amiodarone has been discontinued per CT surgery. She is currently being paced. GENERAL: Tachyneic and generalized pallor. NECK: Supple without JVD or thyromegaly. Right IJ in place. LUNGS: Bibasilar rales, dimimished bilaterally. Respiration equal and unlabored. No wheezes or rhonchi. HEART: Regular rate and rhythm with systolic ejection murmur at the left sternal border, no rubs or gallops. S1 and S2 heard. Heart hugger in place. EXTREMITIES: Normal range of motion, bilateral lower extremity 1+ pitting edema. No clubbing or cyanosis. Peripheral pulses intact. ASSESSMENT Non-ST elevated myocardial infarction s/p double vessel bypass grafting, mitral valve repair and left atrial appendage removal Acute systolic heart failure Mitral regurgitation, moderate Unstable angina Multivessel coronary artery disease Chronic kidney disease, creatinine at baseline Hypertension Dyslipidemia Diabetes mellitus Chronic nicotine dependence PLAN Continue current medical regimen. Encourage incentive spirometer use while awake. Ongoing supportive care. Nurse Practitioner note has been reviewed, I agree with a documented findings and plan of care. Patient was seen and examined. Objective - Vital Signs Vital signs: Vital Signs Temp 98.0 F 07/24/20 08:00 Pulse 68 07/24/20 11:12 Resp 16 07/24/20 11:00 BP 143/59 07/24/20 11:00 Pulse Ox 98 07/24/20 11:00 Intake & Output 07/23/20 07/24/20 07/24/20 18:59 06:59 18:59 Intake Total 1325.842 430.006 115 Output Total 340 505 165 Balance 985.842 -74.994 -50 Weight 95.7 kg Intake: IV 646 352 115 Cardiac Output 10 Pressure Bag 36 42 15 Sodium Chloride 0.9% 1, 600 310 100 000 ml @ 20 mls/hr IV . Q24H [facility] Rx#:[id number] Intake, IV Titration 79.842 78.006 Amount Insulin Regular 100 unit 20.604 78.006 In Sodium Chloride 0.9% 100 ml @ Per Protocol IV .Q0M [facility] Rx#:[id number] Milrinone-D5w Pmx 20 mg 59.238 In Dextrose/Water 1 100ml .bag @ 0.15 MCG/KG/MIN 3. 893 mls/hr IV .Q24H [facility] Rx#:[id number] Oral 600 Output: Urine 340 505 165 Other: Voiding Method Indwelling Catheter Indwelling Catheter Indwelling Catheter ABP, PAP, CO, CI - Last Documented Arterial Blood Pressure 98/73 Pulmonary Artery Pressure 50/29 Cardiac Output 5.5 Cardiac Index 2.9 - Labs CBC & Chem 7: 07/24/20 04:37 07/24/20 04:37 Labs: Abnormal Lab Results - Last 24 Hours (Table) 07/23/20 07/23/20 07/23/20 Range/Units 12:16 15:48 17:40 WBC (3.8-10.6) k/uL RBC (3.80-5.40) m/uL Hgb (11.4-16.0) gm/dL Hct (34.0-46.0) % Plt Count (150-450) k/uL Neutrophils # (1.3-7.7) k/uL Sodium (137-145) mmol/L Carbon Dioxide (22-30) mmol/L BUN (7-17) mg/dL Creatinine (0.52-1.04) mg/dL Glucose (74-99) mg/dL POC Glucose (mg/dL) 102 H 141 H 148 H (75-99) mg/dL Calcium (8.4-10.2) mg/dL AST (14-36) U/L ALT (4-34) U/L Alkaline Phosphatase (38-126) U/L Total Protein (6.3-8.2) g/dL Albumin (3.5-5.0) g/dL 07/23/20 07/23/20 07/24/20 Range/Units 20:17 21:59 00:16 WBC (3.8-10.6) k/uL RBC (3.80-5.40) m/uL Hgb (11.4-16.0) gm/dL Hct (34.0-46.0) % Plt Count (150-450) k/uL Neutrophils # (1.3-7.7) k/uL Sodium (137-145) mmol/L Carbon Dioxide (22-30) mmol/L BUN (7-17) mg/dL Creatinine (0.52-1.04) mg/dL Glucose (74-99) mg/dL POC Glucose (mg/dL) 162 H 141 H 106 H (75-99) mg/dL Calcium (8.4-10.2) mg/dL AST (14-36) U/L ALT (4-34) U/L Alkaline Phosphatase (38-126) U/L Total Protein (6.3-8.2) g/dL Albumin (3.5-5.0) g/dL 07/24/20 07/24/20 07/24/20 Range/Units 02:19 03:56 04:37 WBC 14.1 H (3.8-10.6) k/uL RBC 2.68 L (3.80-5.40) m/uL Hgb 8.1 L (11.4-16.0) gm/dL Hct 25.3 L (34.0-46.0) % Plt Count 74 L (150-450) k/uL Neutrophils # 10.9 H (1.3-7.7) k/uL Sodium (137-145) mmol/L Carbon Dioxide (22-30) mmol/L BUN (7-17) mg/dL Creatinine (0.52-1.04) mg/dL Glucose (74-99) mg/dL POC Glucose (mg/dL) 119 H 113 H (75-99) mg/dL Calcium (8.4-10.2) mg/dL AST (14-36) U/L ALT (4-34) U/L Alkaline Phosphatase (38-126) U/L Total Protein (6.3-8.2) g/dL Albumin (3.5-5.0) g/dL 07/24/20 07/24/20 Range/Units 04:37 05:28 WBC (3.8-10.6) k/uL RBC (3.80-5.40) m/uL Hgb (11.4-16.0) gm/dL Hct (34.0-46.0) % Plt Count (150-450) k/uL Neutrophils # (1.3-7.7) k/uL Sodium 132 L (137-145) mmol/L Carbon Dioxide 18 L (22-30) mmol/L BUN 35 H (7-17) mg/dL Creatinine 2.85 H (0.52-1.04) mg/dL Glucose 105 H (74-99) mg/dL POC Glucose (mg/dL) 119 H (75-99) mg/dL Calcium 7.7 L (8.4-10.2) mg/dL AST 1043 H (14-36) U/L ALT 104 H (4-34) U/L Alkaline Phosphatase 160 H (38-126) U/L Total Protein 4.6 L (6.3-8.2) g/dL Albumin 2.8 L (3.5-5.0) g/dL
--- NOTE | 2020-07-24 13:18 | P.PN ---
Subjective Progress Note Date: 07/24/20 Principal diagnosis: Symptomatic multivessel coronary artery disease and non-ST elevation myocardial infarction 70-year-old female patient who is being seen for preop pulmonary clearance regarding coronary artery bypass surgery. The patient has multivessel coronary artery disease and she is post family. Morbid conditions include hypertension, hyperlipidemia, diabetes mellitus type 2 and chronic kidney disease stage IIIB/4. She presented to the hospital because of worsening shortness of breath and chest pain. She was ruled in for non-STEMI. Her troponins were elevated and it peaked at 12.7. Pro-calcitonin level was 0.23. Lactic acid level was 1.4. Chest x-ray showed small bilateral pleural effusions. There was also evidence of pulmonary vascular congestion. Cardiac catheterization was performed and please refer to the results as the patient was found to have triple-vessel disease with critical stenosis involving the LAD 60% in the circumflex, 70-80% and RCA. Patient has already received COVID-19 vaccination. Patient has no complaints and currently she is free of any chest pain. Echocardiogram was done and the patient has an ejection fraction of 30-35% and moderate mitral regurgitation. She is currently on room air oxygen and her pulse ox is around 98%. 07/18/2020, condition is stable. No new complaints for now. The patient is hemodynamically stable and the patient is awaiting cardiac surgery and she is tentatively scheduled to undergo the surgery on 07/21/2020. No new complaints otherwise for now. She is being treated with diuretics and she remains on Lasix 40 mg IV every 24 hours. She is on room air oxygen. She is free of any chest pain. She is on Levemir insulin 10 units along with a Silastic coverage. She is using incentive spirometer. Dental clearance was also given. Reevaluated today on 07/20/2020, patient is doing well, denies any shortness of breath, no cough no wheezing no fever no chills, remains on Lasix 40 mg IV push every 24 hours, remains on room air, and she is already cleared for surgery/CABG by Dr. Vargas. Chest x-ray was reviewed and no evidence of active disease. On 07/21/2020 patient seen in follow-up after 2 vessel bypass grafting surgery and mitral valve repair, she seen intubated, sedated on mechanical ventilator, currently on assist-control mode with a rate of 12, tidal volume is 400, FiO2 50% and PEEP of 10. Postoperative blood gases showed pO2 of greater than 400, pCO2 of 38, and pH of 7.40 this was done and FiO2 100% and it has since been dropped down to 50%. Patient is doing well status post ZARAGOZA to the LAD and SVG to the RCA, mitral valve repair, left leg endoscopic vein harvest and exclusion of the left atrial appendage and intraoperative transesophageal echocardiogram. She then pointed with secondary to 50 ML per hour, Diprivan is currently at 35 mics per kilo per minute, insulin drip is at 5 units per hour, and milrinone is at 0.3 mics per kilo per minute. Hemodynamically patient is stable, PA pressure is 34/19, CVP is 10, cardiac output is 5.1, and cardiac index is 2.7, she is age a paced on the monitor, with underlying rhythm of sinus rhythm with a rate of 60 BPM, epicardial wires connected to an external pacemaker box currently at AAI mode with a rate of 80. Midsternal incision is clean dry intact, chest tube sites are clean dry and intact. Patient has 2 mediastinal and one left pleural chest tube. There is 140 mL of sang. output from the left pleural chest tube and 110 mL of sanguinous output from that mediastinal chest tube. Postoperative chest x-ray shows ET tube, NG tube, lung cancer catheter in appropriate positions. No evidence of sizable pneumothorax. Reevaluated today on 07/22/2020, patient underwent surgery as noted above, she was extubated last night at 1043. She is now on nasal cannula at 3 L/m, patient will be receiving 2 units of packed RBCs this morning for postoperative blood loss anemia hemoglobin earlier was 6.0. Patient is doing poorly with incentive spirometer. Her CVP is 17 today, cardiac output was 5.9, cardiac index is 3.1, patient remains on amiodarone at 0.5 mg/m, Primacor at 0.15 mcg/kg/m, is also on IV fluid at 50 mL/h 0.9 normal saline. Pulmonary artery pressure is 53/23. And cardiac output and index as noted. Patient at one point was placed on dopamine by thoracic surgery, developed SVT and atrial fibrillation with RVR, hence dopamine was discontinued. Chest x-ray showed bibasilar atelectasis especially at the left base. And that is expected. Continues to have mediastinal and pleural chest tubes noted. With fairly good amount of drainage overnight. WBC count today is 12.2 hemoglobin is 13.8. Electrolytes are normal. Bicarb is a bit low at 17. Renal profile is normal Reevaluated today on 07/23/2020, patient remains in the ICU, on 2 L nasal cannula, O2 sats is 95%. She is on IV fluid at 50 mL/h, she is on insulin at 6 units per hour. Patient's cardiac output is 5.0 cardiac index is 2.6. Minimal drainage from chest tubes, and these will be removed today. Harish was recommend ed by nephrology, however her chest x-ray does not show any evidence of heart failure. Renal functioning is a bit worse, patient may have developed acute kidney injury. Patient is status post 2 vessel CABG and MVR. Her initial presentation was a presentation of non-ST elevation myocardial infarction, and severe LV dysfunction. The worsening renal profile could be cardiorenal. Labs were reviewed today, WBC count is 18.9 hemoglobin 8.6 index was are normal BUN is 30 creatinine is worse 2.81. Patient received a total of 2 units of packed RBCs, yesterday. Patient was reevaluated today on 07/24/2020, patient remains in the ICU, sitting in the recliner, denies any pain or shortness of breath, she feels generally weak. Patient is in sinus bradycardia, and she is being paced up to a rate of 70. She is hemodynamically stable, urine output is in the range of 30-40 mL per hour. Her atrial fibrillation has resolved. However her platelets are down to 74,000, and the heparin induced thrombocytopenia workup is pending.In the meantime, heparin is on hold. Patient is doing well with incentive spirometer. And she seems to be hemodynamically stable WBC count is 14.1 hemoglobin is 8.1. The left lites are normal renal profile is a bit worse with a creatinine of 2.85 BUN is 35 Objective - Vital Signs Vital signs: Vital Signs Temp 98.0 F 07/24/20 12:00 Pulse 70 07/24/20 12:00 Resp 22 07/24/20 12:00 BP 140/57 07/24/20 12:00 Pulse Ox 97 07/24/20 12:00 Intake & Output 07/23/20 07/24/20 07/24/20 18:59 06:59 18:59 Intake Total 1325.842 430.006 138 Output Total 340 505 195 Balance 985.842 -74.994 -57 Weight 95.7 kg Intake: IV 646 352 138 Cardiac Output 10 Pressure Bag 36 42 18 Sodium Chloride 0.9% 1, 600 310 120 000 ml @ 20 mls/hr IV . Q24H [facility] Rx#:[id number] Intake, IV Titration 79.842 78.006 Amount Insulin Regular 100 unit 20.604 78.006 In Sodium Chloride 0.9% 100 ml @ Per Protocol IV .Q0M [facility] Rx#:[id number] Milrinone-D5w Pmx 20 mg 59.238 In Dextrose/Water 1 100ml .bag @ 0.15 MCG/KG/MIN 3. 893 mls/hr IV .Q24H [facility] Rx#:[id number] Oral 600 Output: Urine 340 505 195 Other: Voiding Method Indwelling Catheter Indwelling Catheter Indwelling Catheter ABP, PAP, CO, CI - Last Documented Arterial Blood Pressure 98/73 Pulmonary Artery Pressure 50/29 Cardiac Output 5.5 Cardiac Index 2.9 - Exam Physical Exam revealed a 89-year-old female in no distress. On 2 L nasal cannula, sitting in a recliner. Head: Atraumatic, normocephalic. HEENT:[Neck is supple.] [No neck masses.] [No thyromegaly.] [No JVD.] Right IJ [place]/cordis noted. Chest: [Symmetrical chest expansion, final crackles at the bases no rhonchi and no wheezes. Cardiac Exam: Patient has a paced rhythm. [Normal S1 and S2, no S3 gallop, 2/6 systolic murmur thought the precordium. Abdomen: [Soft, nontender, no megaly, no rebound, no guarding, normal bowel sounds.] Extremities: [No clubbing, no edema, no cyanosis.] Neurological Exam: [No focal neurologic deficit.] Alert oriented 3 no focal deficits. Psychiatric: Normal mood, affect and normal mental status examination. Skin: No rashes. - Labs CBC & Chem 7: 07/24/20 04:37 07/24/20 04:37 Labs: Abnormal Lab Results - Last 24 Hours (Table) 07/23/20 07/23/20 07/23/20 Range/Units 15:48 17:40 20:17 WBC (3.8-10.6) k/uL RBC (3.80-5.40) m/uL Hgb (11.4-16.0) gm/dL Hct (34.0-46.0) % Plt Count (150-450) k/uL Neutrophils # (1.3-7.7) k/uL Sodium (137-145) mmol/L Carbon Dioxide (22-30) mmol/L BUN (7-17) mg/dL Creatinine (0.52-1.04) mg/dL Glucose (74-99) mg/dL POC Glucose (mg/dL) 141 H 148 H 162 H (75-99) mg/dL Calcium (8.4-10.2) mg/dL AST (14-36) U/L ALT (4-34) U/L Alkaline Phosphatase (38-126) U/L Total Protein (6.3-8.2) g/dL Albumin (3.5-5.0) g/dL 07/23/20 07/24/20 07/24/20 Range/Units 21:59 00:16 02:19 WBC (3.8-10.6) k/uL RBC (3.80-5.40) m/uL Hgb (11.4-16.0) gm/dL Hct (34.0-46.0) % Plt Count (150-450) k/uL Neutrophils # (1.3-7.7) k/uL Sodium (137-145) mmol/L Carbon Dioxide (22-30) mmol/L BUN (7-17) mg/dL Creatinine (0.52-1.04) mg/dL Glucose (74-99) mg/dL POC Glucose (mg/dL) 141 H 106 H 119 H (75-99) mg/dL Calcium (8.4-10.2) mg/dL AST (14-36) U/L ALT (4-34) U/L Alkaline Phosphatase (38-126) U/L Total Protein (6.3-8.2) g/dL Albumin (3.5-5.0) g/dL 07/24/20 07/24/20 07/24/20 Range/Units 03:56 04:37 04:37 WBC 14.1 H (3.8-10.6) k/uL RBC 2.68 L (3.80-5.40) m/uL Hgb 8.1 L (11.4-16.0) gm/dL Hct 25.3 L (34.0-46.0) % Plt Count 74 L (150-450) k/uL Neutrophils # 10.9 H (1.3-7.7) k/uL Sodium 132 L (137-145) mmol/L Carbon Dioxide 18 L (22-30) mmol/L BUN 35 H (7-17) mg/dL Creatinine 2.85 H (0.52-1.04) mg/dL Glucose 105 H (74-99) mg/dL POC Glucose (mg/dL) 113 H (75-99) mg/dL Calcium 7.7 L (8.4-10.2) mg/dL AST 1043 H (14-36) U/L ALT 104 H (4-34) U/L Alkaline Phosphatase 160 H (38-126) U/L Total Protein 4.6 L (6.3-8.2) g/dL Albumin 2.8 L (3.5-5.0) g/dL 07/24/20 07/24/20 Range/Units 05:28 11:50 WBC (3.8-10.6) k/uL RBC (3.80-5.40) m/uL Hgb (11.4-16.0) gm/dL Hct (34.0-46.0) % Plt Count (150-450) k/uL Neutrophils # (1.3-7.7) k/uL Sodium (137-145) mmol/L Carbon Dioxide (22-30) mmol/L BUN (7-17) mg/dL Creatinine (0.52-1.04) mg/dL Glucose (74-99) mg/dL POC Glucose (mg/dL) 119 H 209 H (75-99) mg/dL Calcium (8.4-10.2) mg/dL AST (14-36) U/L ALT (4-34) U/L Alkaline Phosphatase (38-126) U/L Total Protein (6.3-8.2) g/dL Albumin (3.5-5.0) g/dL Assessment and Plan Assessment: Impression: Symptomatic multivessel coronary artery disease and acute non-ST elevation myocardial infarction status post 2 vessel bypass surgery, ZARAGOZA to LAD SVG to RCA mitral valve repair, postoperative day #3 Severe LV dysfunction with ejection fraction of 30-35%. Moderate mitral regurgitation requiring surgical repair. Acute on Chronic kidney disease stage III B Type 2 diabetes. Benign essential hypertension. Dyslipidemia. Postoperative atelectasis as expected. Postoperative blood loss anemia, expected. Possible heparin-induced cytopenia, workup is pending. Underlying severe COPD FEV1 is 41%. Recommendation: Continue aspirin statins and Plavix and eventually beta blockers. Hold heparin for now since there is a concern of a possible heparin-induced thrombocytopenia. Increase activity as tolerated. Incentive spirometry. GI and DVT prophylaxis. Continue close monitoring of renal profile. Early ambulation. We'll continue to follow. Time with Patient: Less than 30
--- NOTE | 2020-07-24 15:50 | P.PN ---
Subjective Progress Note Date: 07/24/20 Principal diagnosis: Acute non-ST elevated MT Multivessel coronary artery disease s/p double vessel bypass grafting, mitral valve repair and left atrial appendage removal 70 years old female with past medical history of diabetes mellitus, hype rtension, hyperlipidemia, stage IV chronic kidney disease. He is a patient of Dr. Barnett presents because OF chest pain and progressive dyspnea over few days. Her chest pain started last Monday for 3-4 days ago, it improved gradually but got worse yesterday. Pain was coming and going. Last night it did not go away so decided to come to the hospital. Was about 5/70 severity on the left side, none dictated. Associated with orthopnea and paroxysmal nocturnal dyspnea. Echocardiogram: October ejection fraction 30-35%, several wall motion abnormality chest x-ray: Bilateral lung capacity, edema or infection In the emergency room patient was started on aspirin, heparin drip, lorazepam, furosemide 40 mg IV once. 07/24/2020 Patient is seen and evaluated in follow-up; remains in the ICU, sitting in the recliner, denies any pain or shortness of breath, she feels generally weak. Patient is in sinus bradycardia, and she is being paced up to a rate of 70. She is hemodynamically stable, urine output is in the range of 30-40 mL per hour. Her atrial fibrillation has resolved. Labs are reviewed and platelets are down to 74,000, and the heparin induced thrombocytopenia workup is initiated and pending; heparin currently on hold; stable WBC count is 14.1 hemoglobin is 8.1. Chemical profile reveals stable electrolytes, Creatinine worsened slightly 2.85 BUN is 35 Patient discussed with nursing staff at bedside and concerned about elevated blood sugars with most current one at 209 prior to oral intake; we will start patient on low-dose Lantus at 5 units subcu daily at bedtime; continue to monitor Accu-Cheks before meals and at bedtime with insulin sliding scale Plan is to continue with aspirin, Plavix and beta blockers once blood pressure allows; heparin remains on hold for possible concern of HRT; patient is advised to increase incentive spirometry and increase activity as tolerated Objective - Vital Signs Vital signs: Vital Signs Temp 98.0 F 07/24/20 12:00 Pulse 70 07/24/20 12:00 Resp 22 07/24/20 12:00 BP 140/57 07/24/20 12:00 Pulse Ox 97 07/24/20 12:00 Intake & Output 07/23/20 07/24/20 07/24/20 18:59 06:59 18:59 Intake Total 1325.842 430.006 138 Output Total 340 505 195 Balance 985.842 -74.994 -57 Weight 95.7 kg Intake: IV 646 352 138 Cardiac Output 10 Pressure Bag 36 42 18 Sodium Chloride 0.9% 1, 600 310 120 000 ml @ 20 mls/hr IV . Q24H [facility] Rx#:[id number] Intake, IV Titration 79.842 78.006 Amount Insulin Regular 100 unit 20.604 78.006 In Sodium Chloride 0.9% 100 ml @ Per Protocol IV .Q0M [facility] Rx#:[id number] Milrinone-D5w Pmx 20 mg 59.238 In Dextrose/Water 1 100ml .bag @ 0.15 MCG/KG/MIN 3. 893 mls/hr IV .Q24H [facility] Rx#:[id number] Oral 600 Output: Urine 340 505 195 Other: Voiding Method Indwelling Catheter Indwelling Catheter Indwelling Catheter ABP, PAP, CO, CI - Last Documented Arterial Blood Pressure 98/73 Pulmonary Artery Pressure 50/29 Cardiac Output 5.5 Cardiac Index 2.9 - Exam Patient is lying in the bed comfortably, no acute distress, awake alert and oriented.. HEENT: Normocephalic. Neck is supple. Pupils reactive. Nostrils clear. Oral cavity is moist. Ears reveal no drainage. Neck reveals no JVD, carotid bruits, or thyromegaly. CHEST EXAMINATION: Trachea is central. Symmetrical expansion. Bibasilar diminished sounds. No wheezing or rhonchi. Midsternal surgical site is packed. Chest tubes in place.. CARDIAC: Normal S1, S2 with no gallops. No murmurs ABDOMEN: Soft. Bowel sounds normal. No organomegaly. No abdominal bruits. Extremities: 2+ edema. No clubbing or cyanosis Neurologically awake, alert, oriented x3 with well-coordinated movements. No focal deficits noted Skin: No rash or skin lesions. Psychiatric: Coperative. Nonsuicidal Musculoskeletal: No joint swelling or deformity. Normal range of motion. - Labs CBC & Chem 7: 07/24/20 04:37 07/24/20 04:37 Labs: Abnormal Lab Results - Last 24 Hours (Table) 07/23/20 07/23/20 07/23/20 Range/Units 15:48 17:40 20:17 WBC (3.8-10.6) k/uL RBC (3.80-5.40) m/uL Hgb (11.4-16.0) gm/dL Hct (34.0-46.0) % Plt Count (150-450) k/uL Neutrophils # (1.3-7.7) k/uL Sodium (137-145) mmol/L Carbon Dioxide (22-30) mmol/L BUN (7-17) mg/dL Creatinine (0.52-1.04) mg/dL Glucose (74-99) mg/dL POC Glucose (mg/dL) 141 H 148 H 162 H (75-99) mg/dL Calcium (8.4-10.2) mg/dL AST (14-36) U/L ALT (4-34) U/L Alkaline Phosphatase (38-126) U/L Total Protein (6.3-8.2) g/dL Albumin (3.5-5.0) g/dL 07/23/20 07/24/20 07/24/20 Range/Units 21:59 00:16 02:19 WBC (3.8-10.6) k/uL RBC (3.80-5.40) m/uL Hgb (11.4-16.0) gm/dL Hct (34.0-46.0) % Plt Count (150-450) k/uL Neutrophils # (1.3-7.7) k/uL Sodium (137-145) mmol/L Carbon Dioxide (22-30) mmol/L BUN (7-17) mg/dL Creatinine (0.52-1.04) mg/dL Glucose (74-99) mg/dL POC Glucose (mg/dL) 141 H 106 H 119 H (75-99) mg/dL Calcium (8.4-10.2) mg/dL AST (14-36) U/L ALT (4-34) U/L Alkaline Phosphatase (38-126) U/L Total Protein (6.3-8.2) g/dL Albumin (3.5-5.0) g/dL 0507/24/20 07/24/20 Range/Units 03:56 04:37 04:37 WBC 14.1 H (3.8-10.6) k/uL RBC 2.68 L (3.80-5.40) m/uL Hgb 8.1 L (11.4-16.0) gm/dL Hct 25.3 L (34.0-46.0) % Plt Count 74 L (150-450) k/uL Neutrophils # 10.9 H (1.3-7.7) k/uL Sodium 132 L (137-145) mmol/L Carbon Dioxide 18 L (22-30) mmol/L BUN 35 H (7-17) mg/dL Creatinine 2.85 H (0.52-1.04) mg/dL Glucose 105 H (74-99) mg/dL POC Glucose (mg/dL) 113 H (75-99) mg/dL Calcium 7.7 L (8.4-10.2) mg/dL AST 1043 H (14-36) U/L ALT 104 H (4-34) U/L Alkaline Phosphatase 160 H (38-126) U/L Total Protein 4.6 L (6.3-8.2) g/dL Albumin 2.8 L (3.5-5.0) g/dL 07/24/20 07/24/20 Range/Units 05:28 11:50 WBC (3.8-10.6) k/uL RBC (3.80-5.40) m/uL Hgb (11.4-16.0) gm/dL Hct (34.0-46.0) % Plt Count (150-450) k/uL Neutrophils # (1.3-7.7) k/uL Sodium (137-145) mmol/L Carbon Dioxide (22-30) mmol/L BUN (7-17) mg/dL Creatinine (0.52-1.04) mg/dL Glucose (74-99) mg/dL POC Glucose (mg/dL) 119 H 209 H (75-99) mg/dL Calcium (8.4-10.2) mg/dL AST (14-36) U/L ALT (4-34) U/L Alkaline Phosphatase (38-126) U/L Total Protein (6.3-8.2) g/dL Albumin (3.5-5.0) g/dL Assessment and Plan Assessment: Multivessel coronary artery disease. Status post two-vessel coronary artery bypass graft on 07/21/20 acute systolic CHF exacerbation, ejection fraction 30-35% and moderate MR Acute kidney injury. on stage IV chronic kidney disease. Acute hypoxic respiratory failure secondary to both. on O2 via NC non-stemi with chest pain and elevated troponin. Diabetes mellitus 2 Hypertension Hyperlipidemia Ongoing nicotine addiction DVT prophylaxis Plan: this is a pleasant 70 years old female who presents with CHF and non-STEMI. Patient is status post CABG due to multivessel coronary disease. Preoperatively patient was started on dopamine drip and has been discontinued currently. Patient will be encouraged amiodarone drip. Currently on insulin drip for blood sugar control. Currently on aspirin metoprolol statins. CT surgery and cardiology is on board. Nephrology is following due to acute on chronic kidney disease. will hold oral hypoglycemics and started on insulin regimen. on insulin drip now. Labs and medication were reviewed. Monitor lytes and vitals. DVT and GI prophylaxis. Further recommendations as per clinical course of the patient DVT prophylaxis : Heparin GI Prophylaxis: Pepcid PT/OT: Pending Prognosis is guarded
[2020-07-24 16:41] LABS: Glucose,Whole Blood 218 mg/dL (75-99)
[2020-07-24 20:30] LABS: Glucose,Whole Blood 223 mg/dL (75-99)
[2020-07-24] MEDS: SENNOSIDES-DOCUSATE SODIUM 1 EACH TAB PO SCH (20:34)
[2020-07-24] MEDS: CLOPIDOGREL 75 MG TAB PO SCH (20:35)
[2020-07-24] MEDS ORDERED: INSULIN DETEMIR (LEVEMIR) 100 UNIT/ML SYR SQ SCH (21:00)
[2020-07-25 04:06] LABS: HCT 25.4 % (34.0-46.0); HGB 8.7 gm/dL (11.4-16.0); MCHC 34.1 g/dL (31.0-37.0); MCV 93.9 fL (80.0-100.0); Mean Platelet Volume 10.3; RBC 2.71 m/uL (3.80-5.40); WBC 11.1 k/uL (3.8-10.6)
[2020-07-25 04:11] LABS: Platelet Count 68 k/uL (150-450)
[2020-07-25 04:37] LABS: Calcium 8.4 mg/dL (8.4-10.2); Magnesium 1.9 mg/dL (1.6-2.3); Potassium 4.2 mmol/L (3.5-5.1)
[2020-07-25 06:29] LABS: Glucose,Whole Blood 204 mg/dL (75-99)
[2020-07-25] MEDS: INSULIN ASPART (NovoLOG) 100 UNIT/ML VIAL SQ SCH ×4 (06:58→21:02)
[2020-07-25] MEDS: carvediloL 3.125 MG TAB PO SCH ×2 (06:59→17:02)
[2020-07-25] MEDS: PANTOPRAZOLE 40 MG TABLET PO SCH (06:59)
--- NOTE | 2020-07-25 07:09 | XR ---
EXAMINATION TYPE: XR chest 1V portable DATE OF EXAM: 07/25/2020 COMPARISON: 07/24/2020 HISTORY: Shortness of breath TECHNIQUE: Single frontal view of the chest is obtained. FINDINGS: Postoperative changes seen. No sizable pneumothorax. Diffuse interstitial pattern with bas ilar infiltrate and small effusion. Cardiomegaly noted. Osseous structures are stable. IMPRESSION: Correlate for CHF otherwise consider pneumonia.
[2020-07-25] MEDS: IPRATROPIUM-ALBUTEROL 3 ML NEB INHALATION SCH ×4 (07:15→20:57)
[2020-07-25] MEDS ORDERED: INSULIN ASPART (NovoLOG) 100 UNIT/ML VIAL SQ SCH (07:30)
--- NOTE | 2020-07-25 08:36 | P.PN ---
Subjective Progress Note Date: 07/25/20 Principal diagnosis: Symptomatic diffuse multivessel coronary artery disease, non-STEMI this admission, acute on chronic systolic congestive heart failure, EF 30-35%, moderate mitral valve regurgitation, functional. Previous medical history of evidence of old anterior wall myocardial infarction, chronic kidney disease stage IV, diabetes mellitus type 2, hypertension, hyperlipidemia, lifetime nonsmoker with severe obstruction and preoperative FEV1 41% of predicted, obesity, and family history of early onset coronary artery disease with her father having a myocardial infarction in his mid 40s POD #4 double vessel coronary artery bypass grafting using the left internal loida terrell artery to left anterior descending artery, reverse saphenous vein graft from the aorta to the right coronary artery, mitral valve repair with reduction posterior annuloplasty using 26 mm AnnuloFlex band, exclusion of the left atrial appendage using a 35 mm AtriClip, endoscopic harvesting of the left greater saphenous vein from the groin to below the knee level, intraoperative graft flow measurements using the Sientrastim system, intraoperative transesophageal echocardiogram and epi-aortic scanning. Postoperative acute blood loss anemia and thrombocytopenia, expected given hemodilution and cardiopulmonary bypass pump Atrial fibrillation with rapid ventricular response, known common occurrence after open heart surgery, currently sinus Elevated transaminases, likely from congestion The patient's currently sitting up in a recliner in the intensive care unit in no acute distress. Denies pain, shortness of breath. She is much more awake and alert today and cooperative with her care, looks better than yesterday. Currently atrial paced at 70 bpm, underlying rhythm sinus bradycardia with heart rate 52, hemodynamically stable. Urine output improved at 50-100 mL/hr overnight with 1895 mL in 24 hours. She has had no more rapid afib. Hgb 8.7, plt 68, HIT panel pending. Creatinine 2.74, AST 725, ALT 283. Right internal jugular Cordis remains present. Has already ambulated [facility] around the hallway this morning. No other new concerns. Objective - Vital Signs Vital signs: Vital Signs Temp 99 F 07/25/20 04:30 Pulse 70 07/25/20 08:00 Resp 14 07/25/20 07:00 BP 134/66 07/25/20 07:00 Pulse Ox 94 L 07/25/20 07:00 Intake & Output 07/24/20 07/25/20 07/25/20 18:59 06:59 18:59 Intake Total 264 276 23 Output Total 760 1135 150 Balance -496 -859 -127 Weight 95.1 kg Intake: IV 264 276 23 Pressure Bag 24 36 3 Sodium Chloride 0.9% 1, 240 240 20 000 ml @ 20 mls/hr IV . Q24H [facility] Rx#:[id number] Output: Urine 760 1135 150 Other: Voiding Method Indwelling Catheter Indwelling Catheter Indwelling Catheter ABP, PAP, CO, CI - Last Documented Arterial Blood Pressure 98/73 Pulmonary Artery Pressure 50/29 Cardiac Output 5.5 Cardiac Index 2.9 - Exam CONSTITUTIONAL: Appears comfortable, cooperative, no acute distress RESPIRATORY: Lungs sounds diminished bilaterally. Respirations even, nonlabored. Currently on room air with oxygen saturation 96%. Able to achieve 750-1000 mL on incentive spirometry with better effort. Strong non-productive cough. CARDIOVASCULAR: S1, S2 present. Atrial paced on telemetry with rate 70 bpm, underlying rhythm sinus bradycardia with rate 52 bpm. Sternum stable. Palpable peripheral pulses bilaterally. Trace generalized extremity edema present. No calf pain or tenderness noted. Heart hugger in place with patient demonstrating appropriate use. Antiembolism stockings, SCDs present. GASTROINTESTINAL: Abdomen soft, nontender, nondistended. Active bowel sounds present 4 quadrants. Tolerating diet. Positive flatus, negative bowel movement GENITOURINARY: Tapia present draining clear, yellow urine. Output overnight 50-100 mL per hour last night, 1895 mL in the last 24 hours INTEGUMENTARY: Skin is warm and dry. Anterior chest incision well approximated and covered with dry intact dressing. EVH site well approximated without redness or drainage. NEUROLOGIC: Cranial nerves II through XII intact MUSKULOSKELETAL: Able to move all extremities, strength equal but weak bilaterally PSYCHIATRIC: Alert and oriented to person place and time, appropriate affect, intact judgment and insight INVASIVE LINES AND TUBES: A/V epicardial pacemaker wires present, connected to generator, AAI mode at 70 bpm. Right internal jugular Cordis present. CVP 11- 13 overnight. - Allied health notes Allied health notes reviewed: nursing - Labs CBC & Chem 7: 07/25/20 03:36 07/25/20 03:36 Labs: Abnormal Lab Results - Last 24 Hours (Table) 07/24/20 07/24/20 07/24/20 Range/Units 11:50 16:39 20:28 WBC (3.8-10.6) k/uL RBC (3.80-5.40) m/uL Hgb (11.4-16.0) gm/dL Hct (34.0-46.0) % Plt Count (150-450) k/uL Sodium (137-145) mmol/L BUN (7-17) mg/dL Creatinine (0.52-1.04) mg/dL Glucose (74-99) mg/dL POC Glucose (mg/dL) 209 H 218 H 223 H (75-99) mg/dL AST (14-36) U/L ALT (4-34) U/L Alkaline Phosphatase (38-126) U/L Total Protein (6.3-8.2) g/dL Albumin (3.5-5.0) g/dL 07/25/20 07/25/20 07/25/20 Range/Units 03:36 03:36 06:28 WBC 11.1 H (3.8-10.6) k/uL RBC 2.71 L (3.80-5.40) m/uL Hgb 8.7 L (11.4-16.0) gm/dL Hct 25.4 L (34.0-46.0) % Plt Count 68 L (150-450) k/uL Sodium 131 L (137-145) mmol/L BUN 40 H (7-17) mg/dL Creatinine 2.74 H (0.52-1.04) mg/dL Glucose 173 H (74-99) mg/dL POC Glucose (mg/dL) 204 H (75-99) mg/dL AST 725 H (14-36) U/L ALT 283 H (4-34) U/L Alkaline Phosphatase 203 H (38-126) U/L Total Protein 5.0 L (6.3-8.2) g/dL Albumin 3.0 L (3.5-5.0) g/dL - Imaging and Cardiology Chest x-ray: report reviewed, image reviewed Assessment and Plan Assessment: 1. Symptomatic diffusely calcified multivessel coronary artery disease, non- STEMI this admission, status post 2 vessel CABG 2. Acute on chronic systolic congestive heart failure, EF 30-35% 3. Moderate mitral valve regurgitation on SLOANE, status post 26 mm AnnuloFlex band 4. Dyspnea on admission, secondary to acute heart failure, proBNP on admission 14,500 5. Chronic kidney disease stage IV, baseline creatinine around 1.9 per nephrology 6. Diabetes mellitus type 2, hemoglobin A1c is 8.7% 7. Hypertension 8. Hyperlipidemia, treated, cholesterol 157, LDL 75 9. Lifetime nonsmoker 10. Severe obstruction, preoperative FEV1 41% of predicted with moderate increased operative risk per pulmonology 11. Family history of early onset coronary artery disease with her father having a myocardial infarction in his mid 40s 12. Evidence of old anterior wall myocardial infarction 13. Postoperative acute blood loss anemia and thrombocytopenia, expected 14. Atrial fibrillation with rapid ventricular response, currently sinus 15. Elevation of transaminases, likely from congestion Plan: 1. Continue to optimize medical management with low dose aspirin, Plavix, beta charity. Beta charity switched to Coreg yesterday. Continue statin on hold secondary to increased transaminases, will reintroduce when AST/ALT normalize 2. Amiodarone discontinued due to elevated liver enzymes. No anticoagulation at this point 3. Encourage incentive spirometry use 10x every hour while, bronchodilators per pulmonology 4. Increase activity, ambulate as tolerated. PT/OT/cardiac rehab consulted 5. Will monitor daily labs and CXR. Decision on Lasix administration deferred to nephrology. HIT panel sent, pending 6. Insulin management per primary care. Patient need tight blood sugar control to promote healing, union of the sternal bone 7. GI/DVT prophylaxis. Continue SCDs, heparin discontinued secondary to thrombocytopenia, no Arixtra secondary to kidney disease 8. Continue tapia catheter and Cordis for another 24 hours, will discontinue tomorrow 9. Strict accurate I/Os. Daily weights 10. Pain control with current medication regimen. No toradol due to CKD 11. Dr. Tucker consulted for possible IPR at discharge as patient safety concerns noted 12. More recommendations to follow Time with Patient: Greater than 30
--- NOTE | 2020-07-25 10:51 | P.PN ---
Subjective Progress Note Date: 07/25/20 Principal diagnosis: Symptomatic multivessel coronary artery disease and non-ST elevation myocardial infarction 70-year-old female patient who is being seen for preop pulmonary clearance regarding coronary artery bypass surgery. The patient has multivessel coronary artery disease and she is post family. Morbid conditions include hypertension, hyperlipidemia, diabetes mellitus type 2 and chronic kidney disease stage IIIB/4. She presented to the hospital because of worsening shortness of breath and chest pain. She was ruled in for non-STEMI. Her troponins were elevated and it peaked at 12.7. Pro-calcitonin level was 0.23. Lactic acid level was 1.4. Chest x-ray showed small bilateral pleural effusions. There was also evidence of pulmonary vascular congestion. Cardiac catheterization was performed and please refer to the results as the patient was found to have triple-vessel disease with critical stenosis involving the LAD 60% in the circumflex, 70-80% and RCA. Patient has already received COVID-19 vaccination. Patient has no complaints and currently she is free of any chest pain. Echocardiogram was done and the patient has an ejection fraction of 30-35% and moderate mitral regurgitation. She is currently on room air oxygen and her pulse ox is around 98%. 07/18/2020, condition is stable. No new complaints for now. The patient is hemodynamically stable and the patient is awaiting cardiac surgery and she is tentatively scheduled to undergo the surgery on 07/21/2020. No new complaints otherwise for now. She is being treated with diuretics and she remains on Lasix 40 mg IV every 24 hours. She is on room air oxygen. She is free of any chest pain. She is on Levemir insulin 10 units along with a Silastic coverage. She is using incentive spirometer. Dental clearance was also given. Reevaluated today on 07/20/2020, patient is doing well, denies any shortness of breath, no cough no wheezing no fever no chills, remains on Lasix 40 mg IV push every 24 hours, remains on room air, and she is already cleared for surgery/CABG by Dr. Vargas. Chest x-ray was reviewed and no evidence of active disease. On 07/21/2020 patient seen in follow-up after 2 vessel bypass grafting surgery and mitral valve repair, she seen intubated, sedated on mechanical ventilator, currently on assist-control mode with a rate of 12, tidal volume is 400, FiO2 50% and PEEP of 10. Postoperative blood gases showed pO2 of greater than 400, pCO2 of 38, and pH of 7.40 this was done and FiO2 100% and it has since been dropped down to 50%. Patient is doing well status post ZARAGOZA to the LAD and SVG to the RCA, mitral valve repair, left leg endoscopic vein harvest and exclusion of the left atrial appendage and intraoperative transesophageal echocardiogram. She then pointed with secondary to 50 ML per hour, Diprivan is currently at 35 mics per kilo per minute, insulin drip is at 5 units per hour, and milrinone is at 0.3 mics per kilo per minute. Hemodynamically patient is stable, PA pressure is 34/19, CVP is 10, cardiac output is 5.1, and cardiac index is 2.7, she is age a paced on the monitor, with underlying rhythm of sinus rhythm with a rate of 60 BPM, epicardial wires connected to an external pacemaker box currently at AAI mode with a rate of 80. Midsternal incision is clean dry intact, chest tube sites are clean dry and intact. Patient has 2 mediastinal and one left pleural chest tube. There is 140 mL of sang. output from the left pleural chest tube and 110 mL of sanguinous output from that mediastinal chest tube. Postoperative chest x-ray shows ET tube, NG tube, lung cancer catheter in appropriate positions. No evidence of sizable pneumothorax. Reevaluated today on 07/22/2020, patient underwent surgery as noted above, she was extubated last night at 1043. She is now on nasal cannula at 3 L/m, patient will be receiving 2 units of packed RBCs this morning for postoperative blood loss anemia hemoglobin earlier was 6.0. Patient is doing poorly with incentive spirometer. Her CVP is 17 today, cardiac output was 5.9, cardiac index is 3.1, patient remains on amiodarone at 0.5 mg/m, Primacor at 0.15 mcg/kg/m, is also on IV fluid at 50 mL/h 0.9 normal saline. Pulmonary artery pressure is 53/23. And cardiac output and index as noted. Patient at one point was placed on dopamine by thoracic surgery, developed SVT and atrial fibrillation with RVR, hence dopamine was discontinued. Chest x-ray showed bibasilar atelectasis especially at the left base. And that is expected. Continues to have mediastinal and pleural chest tubes noted. With fairly good amount of drainage overnight. WBC count today is 12.2 hemoglobin is 13.8. Electrolytes are normal. Bicarb is a bit low at 17. Renal profile is normal Reevaluated today on 07/23/2020, patient remains in the ICU, on 2 L nasal cannula, O2 sats is 95%. She is on IV fluid at 50 mL/h, she is on insulin at 6 units per hour. Patient's cardiac output is 5.0 cardiac index is 2.6. Minimal drainage from chest tubes, and these will be removed today. Lasix was recommend ed by nephrology, however her chest x-ray does not show any evidence of heart failure. Renal functioning is a bit worse, patient may have developed acute kidney injury. Patient is status post 2 vessel CABG and MVR. Her initial presentation was a presentation of non-ST elevation myocardial infarction, and severe LV dysfunction. The worsening renal profile could be cardiorenal. Labs were reviewed today, WBC count is 18.9 hemoglobin 8.6 index was are normal BUN is 30 creatinine is worse 2.81. Patient received a total of 2 units of packed RBCs, yesterday. Patient was reevaluated today on 07/24/2020, patient remains in the ICU, sitting in the recliner, denies any pain or shortness of breath, she feels generally weak. Patient is in sinus bradycardia, and she is being paced up to a rate of 70. She is hemodynamically stable, urine output is in the range of 30-40 mL per hour. Her atrial fibrillation has resolved. However her platelets are down to 74,000, and the heparin induced thrombocytopenia workup is pending.In the meantime, heparin is on hold. Patient is doing well with incentive spirometer. And she seems to be hemodynamically stable WBC count is 14.1 hemoglobin is 8.1. The left lites are normal renal profile is a bit worse with a creatinine of 2.85 BUN is 35 Patient was reevaluated today on 07/25/2020, remains in the ICU, sitting at a bedside chair, she is actually on room air, doing great. Renal functioning is slightly better with a creatinine of 2.74 hemoglobin is 8.7,02 saturation 94%. Patient had or her tubes removed, continues to have a right IJ Cordis. She received Lasix 40 mg IV push today. Chest x-ray showed mostly atelectasis at the bases, no clear-cut evidence of CHF WBC count is 11.1 hemoglobin is 8.7. Electrolytesenc normal. Objective - Vital Signs Vital signs: Vital Signs Temp 98.2 F 07/25/20 08:00 Pulse 70 07/25/20 10:00 Resp 14 07/25/20 10:00 BP 135/66 07/25/20 10:00 Pulse Ox 95 07/25/20 10:00 Intake & Output 07/24/20 07/25/20 07/25/20 18:59 06:59 18:59 Intake Total 264 276 69 Output Total 760 1135 380 Balance -176 -859 -311 Weight 95.1 kg Intake: IV 264 276 69 Pressure Bag 24 36 9 Sodium Chloride 0.9% 1, 240 240 60 000 ml @ 20 mls/hr IV . Q24H [facility] Rx#:[id number] Output: Urine 760 1135 380 Other: Voiding Method Indwelling Catheter Indwelling Catheter Indwelling Catheter ABP, PAP, CO, CI - Last Documented Arterial Blood Pressure 98/73 Pulmonary Artery Pressure 50/29 Cardiac Output 5.5 Cardiac Index 2.9 - Exam Physical Exam revealed a 89-year-old female in no distress. On room air, O2 saturations 94% Head: Atraumatic, normocephalic. HEENT:[Neck is supple.] [No neck masses.] [No thyromegaly.] [No JVD.] Right IJ [place]/cordis noted. Chest: [Symmetrical chest expansion, final crackles at the bases no rhonchi and no wheezes. Cardiac Exam: Patient has a paced rhythm. [Normal S1 and S2, no S3 gallop, 2/6 systolic murmur thought the precordium. Abdomen: [Soft, nontender, no megaly, no rebound, no guarding, normal bowel sounds.] Extremities: [No clubbing, no edema, no cyanosis.] Neurological Exam: [No focal neurologic deficit.] Alert oriented 3 no focal deficits. Psychiatric: Normal mood, affect and normal mental status examination. Skin: No rashes. - Labs CBC & Chem 7: 07/25/20 03:36 07/25/20 03:36 Labs: Abnormal Lab Results - Last 24 Hours (Table) 07/24/20 07/24/20 07/24/20 Range/Units 11:50 16:39 20:28 WBC (3.8-10.6) k/uL RBC (3.80-5.40) m/uL Hgb (11.4-16.0) gm/dL Hct (34.0-46.0) % Plt Count (150-450) k/uL Sodium (137-145) mmol/L BUN (7-17) mg/dL Creatinine (0.52-1.04) mg/dL Glucose (74-99) mg/dL POC Glucose (mg/dL) 209 H 218 H 223 H (75-99) mg/dL AST (14-36) U/L ALT (4-34) U/L Alkaline Phosphatase (38-126) U/L Total Protein (6.3-8.2) g/dL Albumin (3.5-5.0) g/dL 07/25/20 07/25/20 07/25/20 Range/Units 03:36 03:36 06:28 WBC 11.1 H (3.8-10.6) k/uL RBC 2.71 L (3.80-5.40) m/uL Hgb 8.7 L (11.4-16.0) gm/dL Hct 25.4 L (34.0-46.0) % Plt Count 68 L (150-450) k/uL Sodium 131 L (137-145) mmol/L BUN 40 H (7-17) mg/dL Creatinine 2.74 H (0.52-1.04) mg/dL Glucose 173 H (74-99) mg/dL POC Glucose (mg/dL) 204 H (75-99) mg/dL AST 725 H (14-36) U/L ALT 283 H (4-34) U/L Alkaline Phosphatase 203 H (38-126) U/L Total Protein 5.0 L (6.3-8.2) g/dL Albumin 3.0 L (3.5-5.0) g/dL Assessment and Plan Assessment: Impression: Symptomatic multivessel coronary artery disease and acute non-ST elevation myocardial infarction status post 2 vessel bypass surgery, ZARAGOZA to LAD SVG to RCA mitral valve repair, postoperative day #4 Severe LV dysfunction with ejection fraction of 30-35%. Moderate mitral regurgitation requiring surgical repair. Acute on Chronic kidney disease stage III B Type 2 diabetes. Benign essential hypertension. Dyslipidemia. Postoperative atelectasis as expected. Postoperative blood loss anemia, expected. Possible heparin-induced cytopenia, workup is pending. Platelets are down to 68,000. Underlying severe COPD FEV1 is 41%. Elevated liver enzymes, possible congestive hepatopathy. We'll continue to monitor. Recommendation: Continue present supportive care measures. Continue to hold heparin since the patient is developing worsening thrombocytopenia. Increase activity as tolerated. Incentive spirometry. GI and DVT prophylaxis. Continue close monitoring of renal profile. Ambulate. We'll continue to follow. Time with Patient: Less than 30
[2020-07-25 12:00] LABS: Glucose,Whole Blood 183 mg/dL (75-99)
[2020-07-25] MEDS: allopurinoL 100 MG TAB PO SCH (12:04)
[2020-07-25] MEDS: FUROSEMIDE 10 MG/ML 4 ML VIAL IV SCH ×2 (12:04→21:01)
[2020-07-25] MEDS: ASPIRIN 81 MG PO SCH (12:05)
[2020-07-25] MEDS: SODIUM BICARBONATE TAB 650 MG TAB PO SCH ×2 (12:05→21:01)
[2020-07-25] MEDS: MAGNESIUM OXIDE 400 MG TAB PO SCH ×2 (12:05→21:01)
[2020-07-25] MEDS: SODIUM CHLORIDE 0.9% 1,000 ML IV SCH (12:11)
--- NOTE | 2020-07-25 14:10 | PN ---
PROGRESS NOTE The patient is seen for followup for acute kidney injury on top of chronic kidney disease. She is status post coronary artery bypass surgery and is currently being diuresed. Her serum creatinine is slightly better from yesterday down to 2.7 from 2.85. Lasix is currently at 40 mg IV q.12 hours. PHYSICAL EXAMINATION: On examination today, patient is awake, comfortable. She is not in any acute distress. She is trying to get up to go to the bathroom. Blood pressure was 129/70, heart rate 70 per minute, she is afebrile. Examination of the heart S1, S2. Examination of lungs: Decreased breath sounds bases. Minimal basal crackles heard. Abdomen is soft, nontender. Examination of lower extremities shows edema. Legs are wrapped. LAB: Show sodium 131, potassium 4.2, chloride 101, CO2 is 22, BUN 40, creatinine 0.7, albumin 3.0, hemoglobin 8.7 g/dL. ASSESSMENT: 1. Acute kidney injury, acute tubular necrosis, nonoliguric, currently improving. 2. Chronic kidney disease stage 3B to 4 secondary to ischemic nephropathy and diabetic kidney disease, baseline creatinine about 1.5-2 mg/dL. 3. Coronary artery disease status post coronary artery bypass surgery 07/21/2020. Previous cardiac catheterization on 07/12/2020. 4. Acute on chronic systolic congestive heart failure. 5. Cardiomyopathy, ejection fraction 30-35%. 6. Moderate mitral regurgitation, pulmonary hypertension. 7. Metabolic acidosis associated with chronic kidney disease and acute kidney injury. 8. Volume overload, currently being diuresed. 9. Atrial fibrillation, rate is controlled. 10.Hypervolemic hyponatremia. 11.Anemia of chronic disease and also secondary to blood loss, status post packed RBCs transfusion, maintained on Aranesp. PLAN: Continue with the IV Lasix. Repeat labs in a.m. MMODL / IJN: [id number] /
[2020-07-25 16:47] LABS: Glucose,Whole Blood 174 mg/dL (75-99)
[2020-07-25 20:55] LABS: Glucose,Whole Blood 157 mg/dL (75-99)
--- NOTE | 2020-07-25 20:59 | P.PN ---
Subjective This is a pleasant 70-year-old female past medical history significant for diabetes mellitus, hypertension, dyslipidemia and chronic kidney disease. 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 She presented to the hospital with symptoms of unstable angina and was ruled in for non-ST elevated myocardial infarction. Echocardiogram revealed severe hypokinesia of the anteroapical wall and apical segments with ejection fraction of 30%, repeat yesterday reveals EF of 30-35%. She underwent cardiac catheterization revealing triple-vessel coronary artery disease with critical lesion in the mid LAD, significant disease in the mid RCA and moderate disease in the circumflex artery. She has been seen in evaluation by CT surgery. She is seen and examined sitting up in the recliner in no acute distress. She continues to have shortness of breath with exertion and is comfortable at rest. She has had no symptoms of chest discomfort. Repeat EKG this morning reveals sinus mechanism with ongoing persistent T-wave inversions in the precordial leads. No significant changes noted. Blood pressure 130/86 heart rate 70 afebrile maintaining oxygen saturation on nasal cannula. Laboratory data reviewed, WBC 6.6, hemoglobin 9.8, platelets 180, sodium 136, potassium 4.1, creatinine 1.87 and magnesium 1.8. Currently maintained on aspirin 81 mg daily, atorvastatin 80 mg daily, Imdur 30 mg daily and metoprolol 50 mg twice a day. 07/24/2020 Pt is seen and examined sitting up in the recliner in no acute distress. She de nies chest pain or shortness of breath. Blood pressure 143/59 heart rate 68 afebrile and maintaining oxygen saturation on nasal cannula. Laboratory data reviewed, WBC 14.1, hgb 8.1, plt 74, sodium 132, potassium 4.2, creatinine 2.85, AST 1043, ALT 104. Amiodarone has been discontinued per CT surgery. She is currently being paced. 07/25 Patient seen and examined. IJ cortis remains in place. She is being atrial paced at 70 by CTS. Denies any chest pain or pressure. No further Afib. Hgb stable at 8.7, Cr 2.7, recieived IV lasix today. Elevated liver enzymes AST 700, ALT 200's. GENERAL: Weak, ill appearing, mildly pale NECK: Supple without JVD or thyromegaly. Right IJ in place. LUNGS: Bibasilar rales, dimimished bilaterally. Respiration equal and unlabored. No wheezes or rhonchi. HEART: Regular rate and rhythm with systolic ejection murmur at the left sternal border, no rubs or gallops. S1 and S2 heard. Heart hugger in place. EXTREMITIES: Normal range of motion, bilateral lower extremity 1+ pitting edema. No clubbing or cyanosis. Peripheral pulses intact. ASSESSMENT Non-ST elevated myocardial infarction s/p double vessel bypass grafting, mitral valve repair and left atrial appendage removal Acute systolic heart failure Mitral regurgitation, moderate, s/p mitral repair Unstable angina Multivessel coronary artery disease, s/p CABG Chronic kidney disease, creatinine at baseline Hypertension Dyslipidemia Diabetes mellitus Chronic nicotine dependence PLAN Continue current medical regimen. If cr not improving or hepatic congestion fails to improve may consider putting Ponce back in or recheck echo however cardiac output and CVP had been fairly stable, improving previously. We will start after load reduction with hydralazine 10/isordil 5 QID, likely transition to Losartan or Lisinopril once Cr stabilizes. Prognosis guarded. Watch Cr, platelets, hgb, LFTs. Await HIT. No statin given increased LFT. Objective - Vital Signs Vital signs: Vital Signs Temp 98.2 F 07/25/20 16:00 Pulse 70 07/25/20 19:00 Resp 20 07/25/20 19:00 BP 136/59 07/25/20 19:00 Pulse Ox 93 L 07/25/20 19:00 Intake & Output 07/25/20 07/25/20 07/26/20 06:59 18:59 06:59 Intake Total 276 723 Output Total 1135 1335 Balance -859 -612 Weight 95.1 kg Intake: IV 276 273 Pressure Bag 36 33 Sodium Chloride 0.9% 1, 240 240 000 ml @ 20 mls/hr IV . Q24H [facility] Rx#:[id number] Oral 450 Output: Urine 1135 1335 Other: Voiding Method Indwelling Catheter Indwelling Catheter ABP, PAP, CO, CI - Last Documented Arterial Blood Pressure 98/73 Pulmonary Artery Pressure 50/29 Cardiac Output 5.5 Cardiac Index 2.9 - Labs CBC & Chem 7: 07/25/20 03:36 07/25/20 03:36 Labs: Abnormal Lab Results - Last 24 Hours (Table) 07/24/20 07/25/20 07/25/20 Range/Units 20:28 03:36 03:36 WBC 11.1 H (3.8-10.6) k/uL RBC 2.71 L (3.80-5.40) m/uL Hgb 8.7 L (11.4-16.0) gm/dL Hct 25.4 L (34.0-46.0) % Plt Count 68 L (150-450) k/uL Sodium 131 L (137-145) mmol/L BUN 40 H (7-17) mg/dL Creatinine 2.74 H (0.52-1.04) mg/dL Glucose 173 H (74-99) mg/dL POC Glucose (mg/dL) 223 H (75-99) mg/dL AST 725 H (14-36) U/L ALT 283 H (4-34) U/L Alkaline Phosphatase 203 H (38-126) U/L Total Protein 5.0 L (6.3-8.2) g/dL Albumin 3.0 L (3.5-5.0) g/dL 07/25/20 07/25/20 07/25/20 Range/Units 06:28 11:58 16:46 WBC (3.8-10.6) k/uL RBC (3.80-5.40) m/uL Hgb (11.4-16.0) gm/dL Hct (34.0-46.0) % Plt Count (150-450) k/uL Sodium (137-145) mmol/L BUN (7-17) mg/dL Creatinine (0.52-1.04) mg/dL Glucose (74-99) mg/dL POC Glucose (mg/dL) 204 H 183 H 174 H (75-99) mg/dL AST (14-36) U/L ALT (4-34) U/L Alkaline Phosphatase (38-126) U/L Total Protein (6.3-8.2) g/dL Albumin (3.5-5.0) g/dL
[2020-07-25] MEDS ORDERED: INSULIN DETEMIR (LEVEMIR) 100 UNIT/ML SYR SQ SCH (21:00)
[2020-07-25] MEDS: SENNOSIDES-DOCUSATE SODIUM 1 EACH TAB PO SCH (21:01)
[2020-07-25] MEDS: CLOPIDOGREL 75 MG TAB PO SCH (21:01)
[2020-07-25] MEDS: INSULIN DETEMIR (LEVEMIR) 100 UNIT/ML SYR SQ SCH (21:02)
[2020-07-25] MEDS: hydrALAZINE HCL 10 MG TAB PO SCH (21:20)
[2020-07-25] MEDS: ISOSORBIDE DINITRATE 10 MG TAB PO SCH (21:20)
[2020-07-26 03:55] LABS: HCT 24.9 % (34.0-46.0); HGB 8.8 gm/dL (11.4-16.0); MCH 33.3 pg (25.0-35.0); MCHC 35.5 g/dL (31.0-37.0); MCV 93.9 fL (80.0-100.0); Mean Platelet Volume 9.6; RBC 2.66 m/uL (3.80-5.40); RDW 15.4 % (11.5-15.5); WBC 9.7 k/uL (3.8-10.6)
[2020-07-26 03:58] LABS: Platelet Count 87 k/uL (150-450)
[2020-07-26 04:18] LABS: Albumin 3.1 g/dL (3.5-5.0); Calcium 8.3 mg/dL (8.4-10.2); Magnesium 1.7 mg/dL (1.6-2.3); Potassium 3.4 mmol/L (3.5-5.1); Total Bilirubin 1.2 mg/dL (0.2-1.3); Total Protein 5.1 g/dL (6.3-8.2)
[2020-07-26] MEDS ORDERED: POTASSIUM CHLORIDE ER 20 MEQ TAB.ER PO STA (06:07)
[2020-07-26 06:27] LABS: Glucose,Whole Blood 144 mg/dL (75-99)
[2020-07-26] MEDS: MAGNESIUM SULFATE-D5W PMX 1 GM in DEXTROSE/WATER 1 100ML.BAG IVPB SCH ×2 (06:32→08:09)
[2020-07-26] MEDS: INSULIN ASPART (NovoLOG) 100 UNIT/ML VIAL SQ SCH ×4 (06:32→20:54)
[2020-07-26] MEDS: PANTOPRAZOLE 40 MG TABLET PO SCH (06:33)
[2020-07-26] MEDS: carvediloL 3.125 MG TAB PO SCH ×2 (06:33→17:18)
--- NOTE | 2020-07-26 07:06 | XR ---
EXAMINATION TYPE: XR chest 1V portable DATE OF EXAM: 07/26/2020 COMPARISON: 07/26/2019 HISTORY: Shortness of breath TECHNIQUE: Single frontal view of the chest is obtained. FINDINGS: Postoperative changes seen. No sizable pneumothorax. Diffuse interstitial pattern with bas ilar infiltrate and small effusion. Cardiomegaly noted. Osseous structures are stable. IMPRESSION: Correlate for CHF
[2020-07-26] MEDS: IPRATROPIUM-ALBUTEROL 3 ML NEB INHALATION SCH ×4 (07:18→20:14)
--- NOTE | 2020-07-26 07:47 | P.PN ---
Subjective Progress Note Date: 07/26/20 Principal diagnosis: Symptomatic diffuse multivessel coronary artery disease, non-STEMI this admission, acute on chronic systolic congestive heart failure, EF 30-35%, moderate mitral valve regurgitation, functional. Previous medical history of evidence of old anterior wall myocardial infarction, chronic kidney disease stage IV, diabetes mellitus type 2, hypertension, hyperlipidemia, lifetime nonsmoker with severe obstruction and preoperative FEV1 41% of predicted, obesity, and family history of early onset coronary artery disease with her father having a myocardial infarction in his mid 40s POD #5 double vessel coronary artery bypass grafting using the left internal loida terrell artery to left anterior descending artery, reverse saphenous vein graft from the aorta to the right coronary artery, mitral valve repair with reduction posterior annuloplasty using 26 mm AnnuloFlex band, exclusion of the left atrial appendage using a 35 mm AtriClip, endoscopic harvesting of the left greater saphenous vein from the groin to below the knee level, intraoperative graft flow measurements using the [employer] system, intraoperative transesophageal echocardiogram and epi-aortic scanning. Postoperative acute blood loss anemia and thrombocytopenia, expected given hemodilution and cardiopulmonary bypass pump Atrial fibrillation with rapid ventricular response, known common occurrence after open heart surgery, currently sinus Elevated transaminases, likely from congestion The patient's currently sitting up in a recliner in the intensive care unit in no acute distress eating breakfast. Denies pain, shortness of breath. She continues to look better every day. Currently sinus rhythm with PACs, rate in the mid 60s, hemodynamically stable. Oxygenating well on room air. Urine output 50-175 mL/hr overnight with 2370 mL in 24 hours. Hgb 8.8, plt 87, HIT panel still pending. Creatinine 2.15, AST 336, ALT 83. Right internal jugular Cordis remains present. Ambulated twice in the hallway yesterday and once in her room. No other new concerns. Objective - Vital Signs Vital signs: Vital Signs Temp 98.8 F 07/26/20 04:00 Pulse 60 07/26/20 07:25 Resp 26 H 07/26/20 07:00 BP 124/50 07/26/20 07:00 Pulse Ox 93 L 07/26/20 07:00 Intake & Output 07/25/20 07/26/20 07/26/20 18:59 06:59 18:59 Intake Total 723 276 Output Total 1335 1095 Balance -612 -819 Weight 93.1 kg Intake: IV 273 276 Pressure Bag 33 36 Sodium Chloride 0.9% 1, 240 240 000 ml @ 20 mls/hr IV . Q24H [facility] Rx#:[id number] Oral 450 Output: Urine 1335 1095 Other: Voiding Method Indwelling Catheter Indwelling Catheter ABP, PAP, CO, CI - Last Documented Arterial Blood Pressure 98/73 Pulmonary Artery Pressure 50/29 Cardiac Output 5.5 Cardiac Index 2.9 - Exam CONSTITUTIONAL: Appears comfortable, cooperative, no acute distress RESPIRATORY: Lungs sounds diminished bilaterally. Respirations even, nonlabored. Currently on room air with oxygen saturation 95%. Able to achieve 750 mL on incentive spirometry with better effort. Strong non-productive cough. CARDIOVASCULAR: S1, S2 present. Regular rate and rhythm, sinus rhythm with PACs in the mid 60s on telemetry. Sternum stable. Palpable peripheral pulses bilaterally. Trace lower extremity edema present. No calf pain or tenderness noted. Heart hugger in place with patient demonstrating appropriate use. Antiembolism stockings, SCDs present. GASTROINTESTINAL: Abdomen soft, nontender, nondistended. Active bowel sounds present 4 quadrants. Tolerating diet. Positive small bowel movement yesterday per patient GENITOURINARY: Tapia present draining clear, yellow urine. Output overnight 50-175 mL per hour last night, 2370 mL in the last 24 hours INTEGUMENTARY: Skin is warm and dry. Anterior chest incision well approximated and covered with dry intact dressing. EVH site well approximated without redness or drainage. NEUROLOGIC: Cranial nerves II through XII intact MUSKULOSKELETAL: Able to move all extremities, strength equal but weak bilaterally PSYCHIATRIC: Alert and oriented to person place and time, appropriate affect, intact judgment and insight INVASIVE LINES AND TUBES: A/V epicardial pacemaker wires present, connected to generator, backup rate 50 bpm. Right internal jugular Cordis present. CVP 14. - Allied health notes Allied health notes reviewed: nursing - Labs CBC & Chem 7: 07/26/20 03:00 07/26/20 03:00 Labs: Abnormal Lab Results - Last 24 Hours (Table) 07/25/20 07/25/20 07/25/20 Range/Units 03:36 11:58 16:46 RBC (3.80-5.40) m/uL Hgb (11.4-16.0) gm/dL Hct (34.0-46.0) % Plt Count (150-450) k/uL Sodium 131 L (137-145) mmol/L Potassium (3.5-5.1) mmol/L BUN 40 H (7-17) mg/dL Creatinine 2.74 H (0.52-1.04) mg/dL Glucose 173 H (74-99) mg/dL POC Glucose (mg/dL) 183 H 174 H (75-99) mg/dL Calcium (8.4-10.2) mg/dL AST 725 H (14-36) U/L ALT 283 H (4-34) U/L Alkaline Phosphatase 203 H (38-126) U/L Total Protein 5.0 L (6.3-8.2) g/dL Albumin 3.0 L (3.5-5.0) g/dL 07/25/20 07/26/20 07/26/20 Range/Units 20:54 03:00 03:00 RBC 2.66 L (3.80-5.40) m/uL Hgb 8.8 L (11.4-16.0) gm/dL Hct 24.9 L (34.0-46.0) % Plt Count 87 L (150-450) k/uL Sodium 133 L (137-145) mmol/L Potassium 3.4 L (3.5-5.1) mmol/L BUN 39 H (7-17) mg/dL Creatinine 2.15 H (0.52-1.04) mg/dL Glucose 121 H (74-99) mg/dL POC Glucose (mg/dL) 157 H (75-99) mg/dL Calcium 8.3 L (8.4-10.2) mg/dL AST 336 H (14-36) U/L ALT 83 H (4-34) U/L Alkaline Phosphatase 180 H (38-126) U/L Total Protein 5.1 L (6.3-8.2) g/dL Albumin 3.1 L (3.5-5.0) g/dL 07/26/20 Range/Units 06:26 RBC (3.80-5.40) m/uL Hgb (11.4-16.0) gm/dL Hct (34.0-46.0) % Plt Count (150-450) k/uL Sodium (137-145) mmol/L Potassium (3.5-5.1) mmol/L BUN (7-17) mg/dL Creatinine (0.52-1.04) mg/dL Glucose (74-99) mg/dL POC Glucose (mg/dL) 144 H (75-99) mg/dL Calcium (8.4-10.2) mg/dL AST (14-36) U/L ALT (4-34) U/L Alkaline Phosphatase (38-126) U/L Total Protein (6.3-8.2) g/dL Albumin (3.5-5.0) g/dL - Imaging and Cardiology Chest x-ray: report reviewed, image reviewed Assessment and Plan Assessment: 1. Symptomatic diffusely calcified multivessel coronary artery disease, non- STEMI this admission, status post 2 vessel CABG 2. Acute on chronic systolic congestive heart failure, EF 30-35% 3. Moderate mitral valve regurgitation on SLOANE, status post 26 mm AnnuloFlex band 4. Dyspnea on admission, secondary to acute heart failure, proBNP on admission 14,500 5. Chronic kidney disease stage IV, baseline creatinine around 1.9 per nephrology 6. Diabetes mellitus type 2, hemoglobin A1c is 8.7% 7. Hypertension 8. Hyperlipidemia, treated, cholesterol 157, LDL 75 9. Lifetime nonsmoker 10. Severe obstruction, preoperative FEV1 41% of predicted with moderate increased operative risk per pulmonology 11. Family history of early onset coronary artery disease with her father having a myocardial infarction in his mid 40s 12. Evidence of old anterior wall myocardial infarction 13. Postoperative acute blood loss anemia and thrombocytopenia, expected 14. Atrial fibrillation with rapid ventricular response, currently sinus 15. Elevation of transaminases, likely from congestion Plan: 1. Continue to optimize medical management with low dose aspirin, Plavix, beta charity. Continue statin on hold secondary to increased transaminases, will reintroduce when AST/ALT normalize 2. Hydralazine/isordil initiated by cardiology for afterload reduction with plans to transition to ANNABELLE/ARB when kidney function allows 3. Encourage incentive spirometry use 10x every hour while, bronchodilators per pulmonology 4. Increase activity, ambulate as tolerated. PT/OT/cardiac rehab consulted 5. Will monitor daily labs and CXR. HIT panel sent, pending. Replace K and Mg 6. Insulin management per primary care. Patient need tight blood sugar control to promote healing, union of the sternal bone 7. GI/DVT prophylaxis. Continue SCDs, heparin discontinued secondary to thrombocytopenia, no Arixtra secondary to kidney disease 8. Discontinue tapia catheter. May bladder scan and straight cath for >300 mL residual 9. Strict accurate I/Os. Daily weights 10. Discontinue cordis 11. Pain control with current medication regimen. No toradol due to CKD 12. Dr. Tucker consulted for possible IPR at discharge as patient safety concerns noted, although patient doing much better in the last 24 hours and expresses wish to go home if possible 13. More recommendations to follow Time with Patient: Greater than 30
[2020-07-26] MEDS ORDERED: POTASSIUM CHLORIDE ER 20 MEQ TAB.ER PO SCH (08:00)
[2020-07-26] MEDS: ASPIRIN 81 MG PO SCH (08:09)
[2020-07-26] MEDS: FUROSEMIDE 10 MG/ML 4 ML VIAL IV SCH ×2 (08:09→20:53)
[2020-07-26] MEDS: SODIUM BICARBONATE TAB 650 MG TAB PO SCH ×2 (08:09→20:53)
[2020-07-26] MEDS: hydrALAZINE HCL 10 MG TAB PO SCH ×4 (08:10→20:55)
[2020-07-26] MEDS: allopurinoL 100 MG TAB PO SCH (08:10)
[2020-07-26] MEDS: ISOSORBIDE DINITRATE 10 MG TAB PO SCH ×4 (08:11→20:55)
--- NOTE | 2020-07-26 10:31 | PN ---
PROGRESS NOTE The patient is seen for followup for acute kidney injury on top of chronic kidney disease. She is status post coronary artery bypass surgery, currently being diuresed for volume overload. Renal function is actually improving with creatinine down to 2.1 today from 2.7 yesterday. PHYSICAL EXAMINATION: On examination today patient is comfortable. She is complaining of feeling tired. No chest pains or shortness of breath. On examination, blood pressure was 101/74, heart rate 80 per minute. She is afebrile. Examination of the heart S1, S2. Examination of the lungs, decreased breath sounds at the bases. Abdomen is soft, obese. Examination of lower extremities shows edema. Both legs are wrapped currently. INSPECTOR [employer]YOR LINE exam grossly intact. LAB: Show sodium 133, potassium 3.4, chloride 100, BUN 39, creatinine 2.1, hemoglobin 8.8 g/dL. ASSESSMENT: 1. Acute kidney injury. acute tubular necrosis, currently improving. 2. Volume overload. 3. Congestive heart failure, acute on top of chronic, mainly systolic. 4. Cardiomyopathy, ejection fraction 30-35%. 5. Coronary artery disease status post coronary artery bypass surgery. Previous cardiac catheterization on 07/12/2020. 6. Metabolic acidosis associated with chronic kidney disease and acute kidney injury. 7. Atrial fibrillation, rate is controlled. 8. 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 The baseline creatinine 1.5-2 mg/dL. 9. Hypervolemic hyponatremia. 10.Anemia of chronic disease as well as secondary to blood loss status post packed RBCs transfusion, maintained on Aranesp. PLAN: Continue with IV Lasix. Replace potassium. Repeat labs in a.m. Encourage increased oral intake, particularly protein. MMODL / IJN: [id number] /
--- NOTE | 2020-07-26 10:46 | P.PN ---
Subjective This is a pleasant 70-year-old female past medical history significant for diabetes mellitus, hypertension, dyslipidemia and chronic kidney disease. 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 She presented to the hospital with symptoms of unstable angina and was ruled in for non-ST elevated myocardial infarction. Echocardiogram revealed severe hypokinesia of the anteroapical wall and apical segments with ejection fraction of 30%, repeat yesterday reveals EF of 30-35%. She underwent cardiac catheterization revealing triple-vessel coronary artery disease with critical lesion in the mid LAD, significant disease in the mid RCA and moderate disease in the circumflex artery. She has been seen in evaluation by CT surgery. She is seen and examined sitting up in the recliner in no acute distress. She continues to have shortness of breath with exertion and is comfortable at rest. She has had no symptoms of chest discomfort. Repeat EKG this morning reveals sinus mechanism with ongoing persistent T-wave inversions in the precordial leads. No significant changes noted. Blood pressure 130/86 heart rate 70 afebrile maintaining oxygen saturation on nasal cannula. Laboratory data reviewed, WBC 6.6, hemoglobin 9.8, platelets 180, sodium 136, potassium 4.1, creatinine 1.87 and magnesium 1.8. Currently maintained on aspirin 81 mg daily, atorvastatin 80 mg daily, Imdur 30 mg daily and metoprolol 50 mg twice a day. 07/24/2020 Pt is seen and examined sitting up in the recliner in no acute distress. She de nies chest pain or shortness of breath. Blood pressure 143/59 heart rate 68 afebrile and maintaining oxygen saturation on nasal cannula. Laboratory data reviewed, WBC 14.1, hgb 8.1, plt 74, sodium 132, potassium 4.2, creatinine 2.85, AST 1043, ALT 104. Amiodarone has been discontinued per CT surgery. She is currently being paced. 07/25 Patient seen and examined. IJ cortis remains in place. She is being atrial paced at 70 by CTS. Denies any chest pain or pressure. No further Afib. Hgb stable at 8.7, Cr 2.7, recieived IV lasix today. Elevated liver enzymes AST 700, ALT 200's. 07/26 Patient seen and examined. Patient is continued on Lasix. Creatinine continues improved to 2.1 today. Denies any chest pain or pressure. Still with some shortness breath, fatigue. AST and ALT also improving. GENERAL: Weak, ill appearing, mildly pale NECK: Supple without JVD or thyromegaly. Right IJ in place. LUNGS: Bibasilar rales, dimimished bilaterally. Respiration equal and unlabored. No wheezes or rhonchi. HEART: Regular rate and rhythm with systolic ejection murmur at the left sternal border, no rubs or gallops. S1 and S2 heard. Heart hugger in place. EXTREMITIES: Normal range of motion, bilateral lower extremity 1+ pitting edema. No clubbing or cyanosis. Peripheral pulses intact. ASSESSMENT Non-ST elevated myocardial infarction s/p double vessel bypass grafting, mitral valve repair and left atrial appendage removal Acute systolic heart failure Mitral regurgitation, moderate, s/p mitral repair Unstable angina Multivessel coronary artery disease, s/p CABG Chronic kidney disease, creatinine at baseline Hypertension Dyslipidemia Diabetes mellitus Chronic nicotine dependence PLAN BUN, creatinine as well as AST and ALT improving. Continue with diuresis. Continue after load reduction with hydralazine 10/isordil 5 QID, likely transition to Losartan or Lisinopril once Cr stabilizes. Prognosis guarded. Watch Cr, platelets, hgb, LFTs. No statin given increased LFT. Objective - Vital Signs Vital signs: Vital Signs Temp 98 F 07/26/20 08:00 Pulse 50 L 07/26/20 09:00 Resp 16 07/26/20 09:00 BP 127/61 07/26/20 09:00 Pulse Ox 96 07/26/20 09:00 Intake & Output 07/25/20 07/26/20 07/26/20 18:59 06:59 18:59 Intake Total 723 276 146 Output Total 1335 1095 Balance -612 -819 146 Weight 93.1 kg Intake: IV 273 276 146 Magnesium Sulfate-D5w Pmx 100 1 gm In Dextrose/Water 1 100ml.bag @ 100 mls/hr IVPB Q1H [facility] Rx#: [id number] Pressure Bag 33 36 6 Sodium Chloride 0.9% 1, 240 240 40 000 ml @ 20 mls/hr IV . Q24H [facility] Rx#:[id number] Oral 450 Output: Urine 1335 1095 Other: Voiding Method Indwelling Catheter Indwelling Catheter Indwelling Catheter ABP, PAP, CO, CI - Last Documented Arterial Blood Pressure 98/73 Pulmonary Artery Pressure 50/29 Cardiac Output 5.5 Cardiac Index 2.9 - Labs CBC & Chem 7: 07/26/20 03:00 07/26/20 03:00 Labs: Abnormal Lab Results - Last 24 Hours (Table) 07/25/20 07/25/20 07/25/20 Range/Units 11:58 16:46 20:54 RBC (3.80-5.40) m/uL Hgb (11.4-16.0) gm/dL Hct (34.0-46.0) % Plt Count (150-450) k/uL Sodium (137-145) mmol/L Potassium (3.5-5.1) mmol/L BUN (7-17) mg/dL Creatinine (0.52-1.04) mg/dL Glucose (74-99) mg/dL POC Glucose (mg/dL) 183 H 174 H 157 H (75-99) mg/dL Calcium (8.4-10.2) mg/dL AST (14-36) U/L ALT (4-34) U/L Alkaline Phosphatase (38-126) U/L Total Protein (6.3-8.2) g/dL Albumin (3.5-5.0) g/dL 07/26/20 07/26/20 07/26/20 Range/Units 03:00 03:00 06:26 RBC 2.66 L (3.80-5.40) m/uL Hgb 8.8 L (11.4-16.0) gm/dL Hct 24.9 L (34.0-46.0) % Plt Count 87 L (150-450) k/uL Sodium 133 L (137-145) mmol/L Potassium 3.4 L (3.5-5.1) mmol/L BUN 39 H (7-17) mg/dL Creatinine 2.15 H (0.52-1.04) mg/dL Glucose 121 H (74-99) mg/dL POC Glucose (mg/dL) 144 H (75-99) mg/dL Calcium 8.3 L (8.4-10.2) mg/dL AST 336 H (14-36) U/L ALT 83 H (4-34) U/L Alkaline Phosphatase 180 H (38-126) U/L Total Protein 5.1 L (6.3-8.2) g/dL Albumin 3.1 L (3.5-5.0) g/dL
--- NOTE | 2020-07-26 12:19 | P.PN ---
Subjective Progress Note Date: 07/18/20 Principal diagnosis: Acute non-ST elevated CA Multivessel coronary artery disease s/p double vessel bypass grafting, mitral valve repair and left atrial appendage removal 70 years old female with past medical history of diabetes mellitus, hype rtension, hyperlipidemia, stage IV chronic kidney disease. He is a patient of Dr. Barnett presents because OF chest pain and progressive dyspnea over few days. Her chest pain started last Monday for 3-4 days ago, it improved gradually but got worse yesterday. Pain was coming and going. Last night it did not go away so decided to come to the hospital. Was about 5/70 severity on the left side, none dictated. Associated with orthopnea and paroxysmal nocturnal dyspnea. Echocardiogram: October ejection fraction 30-35%, several wall motion abnormality chest x-ray: Bilateral lung capacity, edema or infection In the emergency room patient was started on aspirin, heparin drip, lorazepam, furosemide 40 mg IV once. 07/24/2020 Patient is seen and evaluated in follow-up; remains in the ICU, sitting in the recliner, denies any pain or shortness of breath, she feels generally weak. Patient is in sinus bradycardia, and she is being paced up to a rate of 70. She is hemodynamically stable, urine output is in the range of 30-40 mL per hour. Her atrial fibrillation has resolved. Labs are reviewed and platelets are down to 74,000, and the heparin induced thrombocytopenia workup is initiated and pending; heparin currently on hold; stable WBC count is 14.1 hemoglobin is 8.1. Chemical profile reveals stable electrolytes, Creatinine worsened slightly 2.85 BUN is 35 Patient discussed with nursing staff at bedside and concerned about elevated blood sugars with most current one at 209 prior to oral intake; we will start patient on low-dose Lantus at 5 units subcu daily at bedtime; continue to monitor Accu-Cheks before meals and at bedtime with insulin sliding scale Plan is to continue with aspirin, Plavix and beta blockers once blood pressure allows; heparin remains on hold for possible concern of HRT; patient is advised to increase incentive spirometry and increase activity as tolerated 07/25/2020 Patient is seen and evaluated in room at bedside; remains in the ICU, sitting at a bedside chair with family members present in room, she is actually on room air, doing great. Renal functioning is slightly better with a creatinine of 2.74 hemoglobin is 8.7,02 saturation 94%. Patient had or her tubes removed, continues to have a right IJ Cordis. She received Lasix 40 mg IV push today. Chest x-ray showed mostly atelectasis at the bases, no clear-cut evidence of CHF; received Lasix 40 mg IV push today WBC count is 11.1 hemoglobin is 8.7. Electrolytes remained within normal limits Cardiology on board; If cr not improving or hepatic congestion fails to improve may consider putting [place] back in or recheck echo however cardiac output and CVP had been fairly stable, improving previously. Cardiology recommending to start after load reduction with hydralazine 10 milligrams, isordil 5 milligrams QID, likely transition to Losartan or Lisinopril once creatinine stabilizes. Prognosis guarded. Continue to monitor renal function, platelets, hgb, LFTs. Await HIT. No statin given increased LFT. Objective - Vital Signs Vital signs: Vital Signs Temp 98.2 F 07/25/20 08:00 Pulse 70 07/25/20 08:00 Resp 20 07/25/20 08:00 BP 140/58 07/25/20 08:00 Pulse Ox 95 07/25/20 08:00 Intake & Output 07/24/20 07/25/20 07/25/20 18:59 06:59 18:59 Intake Total 264 276 23 Output Total 760 1135 150 Balance -496 -859 -127 Weight 95.1 kg Intake: IV 264 276 23 Pressure Bag 24 36 3 Sodium Chloride 0.9% 1, 240 240 20 000 ml @ 20 mls/hr IV . Q24H [facility] Rx#:[id number] Output: Urine 760 1135 150 Other: Voiding Method Indwelling Catheter Indwelling Catheter Indwelling Catheter ABP, PAP, CO, CI - Last Documented Arterial Blood Pressure 98/73 Pulmonary Artery Pressure 50/29 Cardiac Output 5.5 Cardiac Index 2.9 - Exam Patient is lying in the bed comfortably, no acute distress, awake alert and oriented.. HEENT: Normocephalic. Neck is supple. Pupils reactive. Nostrils clear. Oral cavity is moist. Ears reveal no drainage. Neck reveals no JVD, carotid bruits, or thyromegaly. CHEST EXAMINATION: Trachea is central. Symmetrical expansion. Bibasilar diminished sounds. No wheezing or rhonchi. Midsternal surgical site is packed. Chest tubes in place.. CARDIAC: Normal S1, S2 with no gallops. No murmurs ABDOMEN: Soft. Bowel sounds normal. No organomegaly. No abdominal bruits. Extremities: 2+ edema. No clubbing or cyanosis Neurologically awake, alert, oriented x3 with well-coordinated movements. No focal deficits noted Skin: No rash or skin lesions. Psychiatric: Coperative. Nonsuicidal Musculoskeletal: No joint swelling or deformity. Normal range of motion. - Labs CBC & Chem 7: 07/26/20 03:00 07/26/20 03:00 Labs: Abnormal Lab Results - Last 24 Hours (Table) 07/24/20 07/24/20 07/24/20 Range/Units 11:50 16:39 20:28 WBC (3.8-10.6) k/uL RBC (3.80-5.40) m/uL Hgb (11.4-16.0) gm/dL Hct (34.0-46.0) % Plt Count (150-450) k/uL Sodium (137-145) mmol/L BUN (7-17) mg/dL Creatinine (0.52-1.04) mg/dL Glucose (74-99) mg/dL POC Glucose (mg/dL) 209 H 218 H 223 H (75-99) mg/dL AST (14-36) U/L ALT (4-34) U/L Alkaline Phosphatase (38-126) U/L Total Protein (6.3-8.2) g/dL Albumin (3.5-5.0) g/dL 07/25/20 07/25/20 07/25/20 Range/Units 03:36 03:36 06:28 WBC 11.1 H (3.8-10.6) k/uL RBC 2.71 L (3.80-5.40) m/uL Hgb 8.7 L (11.4-16.0) gm/dL Hct 25.4 L (34.0-46.0) % Plt Count 68 L (150-450) k/uL Sodium 131 L (137-145) mmol/L BUN 40 H (7-17) mg/dL Creatinine 2.74 H (0.52-1.04) mg/dL Glucose 173 H (74-99) mg/dL POC Glucose (mg/dL) 204 H (75-99) mg/dL AST 725 H (14-36) U/L ALT 283 H (4-34) U/L Alkaline Phosphatase 203 H (38-126) U/L Total Protein 5.0 L (6.3-8.2) g/dL Albumin 3.0 L (3.5-5.0) g/dL Assessment and Plan Assessment: Multivessel coronary artery disease. Status post two-vessel coronary artery bypass graft on 07/21/20 acute systolic CHF exacerbation, ejection fraction 30-35% and moderate MR Acute kidney injury. on stage IV chronic kidney disease. Acute hypoxic respiratory failure secondary to both. on O2 via NC non-stemi with chest pain and elevated troponin. Diabetes mellitus 2 Hypertension Hyperlipidemia Ongoing nicotine addiction DVT prophylaxis Plan: this is a pleasant 70 years old female who presents with CHF and non-STEMI. Patient is status post CABG due to multivessel coronary disease. Preoperatively patient was started on dopamine drip and has been discontinued currently. Patient will be encouraged amiodarone drip. Currently on insulin drip for blood sugar control. Currently on aspirin metoprolol statins. CT surgery and cardiology is on board. Nephrology is following due to acute on chronic kidney disease. will hold oral hypoglycemics and started on insulin regimen. on insulin drip now. Labs and medication were reviewed. Monitor lytes and vitals. DVT and GI prophylaxis. Further recommendations as per clinical course of the patient DVT prophylaxis : Heparin GI Prophylaxis: Pepcid PT/OT: Pending Prognosis is guarded
[2020-07-26 12:20] LABS: Glucose,Whole Blood 211 mg/dL (75-99)
--- NOTE | 2020-07-26 12:20 | P.PN ---
Subjective Progress Note Date: 07/26/20 Principal diagnosis: Acute non-ST elevated [place] Multivessel coronary artery disease s/p double vessel bypass grafting, mitral valve repair and left atrial appendage removal 70 years old female with past medical history of diabetes mellitus, hype rtension, hyperlipidemia, stage IV chronic kidney disease. He is a patient of Dr. Barnett presents because OF chest pain and progressive dyspnea over few days. Her chest pain started last Monday for 3-4 days ago, it improved gradually but got worse yesterday. Pain was coming and going. Last night it did not go away so decided to come to the hospital. Was about 5/70 severity on the left side, none dictated. Associated with orthopnea and paroxysmal nocturnal dyspnea. Echocardiogram: October ejection fraction 30-35%, several wall motion abnormality chest x-ray: Bilateral lung capacity, edema or infection In the emergency room patient was started on aspirin, heparin drip, lorazepam, furosemide 40 mg IV once. 07/24/2020 Patient is seen and evaluated in follow-up; remains in the ICU, sitting in the recliner, denies any pain or shortness of breath, she feels generally weak. Patient is in sinus bradycardia, and she is being paced up to a rate of 70. She is hemodynamically stable, urine output is in the range of 30-40 mL per hour. Her atrial fibrillation has resolved. Labs are reviewed and platelets are down to 74,000, and the heparin induced thrombocytopenia workup is initiated and pending; heparin currently on hold; stable WBC count is 14.1 hemoglobin is 8.1. Chemical profile reveals stable electrolytes, Creatinine worsened slightly 2.85 BUN is 35 Patient discussed with nursing staff at bedside and concerned about elevated blood sugars with most current one at 209 prior to oral intake; we will start patient on low-dose Lantus at 5 units subcu daily at bedtime; continue to monitor Accu-Cheks before meals and at bedtime with insulin sliding scale Plan is to continue with aspirin, Plavix and beta blockers once blood pressure allows; heparin remains on hold for possible concern of HRT; patient is advised to increase incentive spirometry and increase activity as tolerated 07/25/2020 Patient is seen and evaluated in room at bedside; remains in the ICU, sitting at a bedside chair with family members present in room, she is actually on room air, doing great. Renal functioning is slightly better with a creatinine of 2.74 hemoglobin is 8.7,02 saturation 94%. Patient had or her tubes removed, continues to have a right IJ Cordis. She received Lasix 40 mg IV push today. Chest x-ray showed mostly atelectasis at the bases, no clear-cut evidence of CHF; received Lasix 40 mg IV push today WBC count is 11.1 hemoglobin is 8.7. Electrolytes remained within normal limits Cardiology on board; If cr not improving or hepatic congestion fails to improve may consider putting [place] back in or recheck echo however cardiac output and CVP had been fairly stable, improving previously. Cardiology recommending to start after load reduction with hydralazine 10 milligrams, isordil 5 milligrams QID, likely transition to Losartan or Lisinopril once creatinine stabilizes. Prognosis guarded. Continue to monitor renal function, platelets, hgb, LFTs. Await HIT. No statin given increased LFT. 07/26/2020 The patient is seen and evaluated sitting up in a recliner in the intensive care unit in no acute distress eating breakfast. Denies pain, shortness of breath. Currently sinus rhythm with PACs, rate in the mid 60s, hemodynamically stable. Oxygenating well on room air. Urine output 50-175 mL/hr overnight with 2370 mL in 24 hours. Laboratory review shows Hgb 8.8, plt 87, HIT panel still pending. Creatinine 2.15, AST 336, ALT 83. Ambulated twice in the hallway yesterday and once in her room. Plan is to continue with low dose aspirin, Plavix, beta charity. Continue statin on hold secondary to increased transaminases, will reintroduce when AST/ALT normalize Hydralazine/isordil initiated by cardiology for afterload reduction with plans to transition to [place]/ARB when kidney function improves Encourage incentive spirometry use 10x every hour while, bronchodilators per pulmonology; Increase activity, ambulate as tolerated. PT/OT/cardiac rehab consulted Objective - Vital Signs Vital signs: Vital Signs Temp 98.1 F 07/26/20 12:00 Pulse 63 07/26/20 12:00 Resp 20 07/26/20 12:00 BP 127/61 07/26/20 12:00 Pulse Ox 95 07/26/20 12:00 Intake & Output 07/25/20 07/26/20 07/26/20 18:59 06:59 18:59 Intake Total 723 276 166 Output Total 1335 1095 525 Balance -612 -819 -359 Weight 93.1 kg Intake: IV 273 276 166 Magnesium Sulfate-D5w Pmx 100 1 gm In Dextrose/Water 1 100ml.bag @ 100 mls/hr IVPB Q1H [facility] Rx#: [id number] Pressure Bag 33 36 6 Sodium Chloride 0.9% 1, 240 240 60 000 ml @ 20 mls/hr IV . Q24H [facility] Rx#:[id number] Oral 450 Output: Urine 1335 1095 525 Other: Voiding Method Indwelling Catheter Indwelling Catheter Indwelling Catheter ABP, PAP, CO, CI - Last Documented Arterial Blood Pressure 98/73 Pulmonary Artery Pressure 50/29 Cardiac Output 5.5 Cardiac Index 2.9 - Exam Patient is lying in the bed comfortably, no acute distress, awake alert and oriented.. HEENT: Normocephalic. Neck is supple. Pupils reactive. Nostrils clear. Oral cavity is moist. Ears reveal no drainage. Neck reveals no JVD, carotid bruits, or thyromegaly. CHEST EXAMINATION: Trachea is central. Symmetrical expansion. Bibasilar diminished sounds. No wheezing or rhonchi. Midsternal surgical site is packed. Chest tubes in place.. CARDIAC: Normal S1, S2 with no gallops. No murmurs ABDOMEN: Soft. Bowel sounds normal. No organomegaly. No abdominal bruits. Extremities: 2+ edema. No clubbing or cyanosis Neurologically awake, alert, oriented x3 with well-coordinated movements. No focal deficits noted Skin: No rash or skin lesions. Psychiatric: Coperative. Nonsuicidal Musculoskeletal: No joint swelling or deformity. Normal range of motion. - Labs CBC & Chem 7: 07/26/20 03:00 07/26/20 03:00 Labs: Abnormal Lab Results - Last 24 Hours (Table) 07/25/20 07/25/20 07/26/20 Range/Units 16:46 20:54 03:00 RBC 2.66 L (3.80-5.40) m/uL Hgb 8.8 L (11.4-16.0) gm/dL Hct 24.9 L (34.0-46.0) % Plt Count 87 L (150-450) k/uL Sodium (137-145) mmol/L Potassium (3.5-5.1) mmol/L BUN (7-17) mg/dL Creatinine (0.52-1.04) mg/dL Glucose (74-99) mg/dL POC Glucose (mg/dL) 174 H 157 H (75-99) mg/dL Calcium (8.4-10.2) mg/dL AST (14-36) U/L ALT (4-34) U/L Alkaline Phosphatase (38-126) U/L Total Protein (6.3-8.2) g/dL Albumin (3.5-5.0) g/dL 07/26/20 07/26/20 Range/Units 03:00 06:26 RBC (3.80-5.40) m/uL Hgb (11.4-16.0) gm/dL Hct (34.0-46.0) % Plt Count (150-450) k/uL Sodium 133 L (137-145) mmol/L Potassium 3.4 L (3.5-5.1) mmol/L BUN 39 H (7-17) mg/dL Creatinine 2.15 H (0.52-1.04) mg/dL Glucose 121 H (74-99) mg/dL POC Glucose (mg/dL) 144 H (75-99) mg/dL Calcium 8.3 L (8.4-10.2) mg/dL AST 336 H (14-36) U/L ALT 83 H (4-34) U/L Alkaline Phosphatase 180 H (38-126) U/L Total Protein 5.1 L (6.3-8.2) g/dL Albumin 3.1 L (3.5-5.0) g/dL Assessment and Plan Assessment: Multivessel coronary artery disease. Status post two-vessel coronary artery bypass graft on 07/21/20 acute systolic CHF exacerbation, ejection fraction 30-35% and moderate MR Acute kidney injury. on stage IV chronic kidney disease. Acute hypoxic respiratory failure secondary to both. on O2 via NC non-stemi with chest pain and elevated troponin. Diabetes mellitus 2 Hypertension Hyperlipidemia Ongoing nicotine addiction DVT prophylaxis Plan: this is a pleasant 70 years old female who presents with CHF and non-STEMI. Patient is status post CABG due to multivessel coronary disease. Preoperatively patient was started on dopamine drip and has been discontinued currently. Patient will be encouraged amiodarone drip. Currently on insulin drip for blood sugar control. Currently on aspirin metoprolol statins. CT surgery and cardiology is on board. Nephrology is following due to acute on chronic kidney disease. will hold oral hypoglycemics and started on insulin regimen. on insulin drip now. Labs and medication were reviewed. Monitor lytes and vitals. DVT and GI prop hylaxis. Further recommendations as per clinical course of the patient DVT prophylaxis : Heparin GI Prophylaxis: Pepcid PT/OT: Pending Prognosis is guarded
[2020-07-26] MEDS: SODIUM CHLORIDE 0.9% 1,000 ML IV SCH (12:36)
--- NOTE | 2020-07-26 13:10 | P.PN ---
Subjective Progress Note Date: 07/26/20 Principal diagnosis: Symptomatic multivessel coronary artery disease and non-ST elevation myocardial infarction 70-year-old female patient who is being seen for preop pulmonary clearance regarding coronary artery bypass surgery. The patient has multivessel coronary artery disease and she is post family. Morbid conditions include hypertension, hyperlipidemia, diabetes mellitus type 2 and chronic kidney disease stage IIIB/4. She presented to the hospital because of worsening shortness of breath and chest pain. She was ruled in for non-STEMI. Her troponins were elevated and it peaked at 12.7. Pro-calcitonin level was 0.23. Lactic acid level was 1.4. Chest x-ray showed small bilateral pleural effusions. There was also evidence of pulmonary vascular congestion. Cardiac catheterization was performed and please refer to the results as the patient was found to have triple-vessel disease with critical stenosis involving the LAD 60% in the circumflex, 70-80% and RCA. Patient has already received COVID-19 vaccination. Patient has no complaints and currently she is free of any chest pain. Echocardiogram was done and the patient has an ejection fraction of 30-35% and moderate mitral regurgitation. She is currently on room air oxygen and her pulse ox is around 98%. 07/18/2020, condition is stable. No new complaints for now. The patient is hemodynamically stable and the patient is awaiting cardiac surgery and she is tentatively scheduled to undergo the surgery on 07/21/2020. No new complaints otherwise for now. She is being treated with diuretics and she remains on Lasix 40 mg IV every 24 hours. She is on room air oxygen. She is free of any chest pain. She is on Levemir insulin 10 units along with a Silastic coverage. She is using incentive spirometer. Dental clearance was also given. Reevaluated today on 07/20/2020, patient is doing well, denies any shortness of breath, no cough no wheezing no fever no chills, remains on Lasix 40 mg IV push every 24 hours, remains on room air, and she is already cleared for surgery/CABG by Dr. Vargas. Chest x-ray was reviewed and no evidence of active disease. On 07/21/2020 patient seen in follow-up after 2 vessel bypass grafting surgery and mitral valve repair, she seen intubated, sedated on mechanical ventilator, currently on assist-control mode with a rate of 12, tidal volume is 400, FiO2 50% and PEEP of 10. Postoperative blood gases showed pO2 of greater than 400, pCO2 of 38, and pH of 7.40 this was done and FiO2 100% and it has since been dropped down to 50%. Patient is doing well status post ZARAGOZA to the LAD and SVG to the RCA, mitral valve repair, left leg endoscopic vein harvest and exclusion of the left atrial appendage and intraoperative transesophageal echocardiogram. She then pointed with secondary to 50 ML per hour, Diprivan is currently at 35 mics per kilo per minute, insulin drip is at 5 units per hour, and milrinone is at 0.3 mics per kilo per minute. Hemodynamically patient is stable, PA pressure is 34/19, CVP is 10, cardiac output is 5.1, and cardiac index is 2.7, she is age a paced on the monitor, with underlying rhythm of sinus rhythm with a rate of 60 BPM, epicardial wires connected to an external pacemaker box currently at AAI mode with a rate of 80. Midsternal incision is clean dry intact, chest tube sites are clean dry and intact. Patient has 2 mediastinal and one left pleural chest tube. There is 140 mL of sang. output from the left pleural chest tube and 110 mL of sanguinous output from that mediastinal chest tube. Postoperative chest x-ray shows ET tube, NG tube, lung cancer catheter in appropriate positions. No evidence of sizable pneumothorax. Reevaluated today on 07/22/2020, patient underwent surgery as noted above, she was extubated last night at 1043. She is now on nasal cannula at 3 L/m, patient will be receiving 2 units of packed RBCs this morning for postoperative blood loss anemia hemoglobin earlier was 6.0. Patient is doing poorly with incentive spirometer. Her CVP is 17 today, cardiac output was 5.9, cardiac index is 3.1, patient remains on amiodarone at 0.5 mg/m, Primacor at 0.15 mcg/kg/m, is also on IV fluid at 50 mL/h 0.9 normal saline. Pulmonary artery pressure is 53/23. And cardiac output and index as noted. Patient at one point was placed on dopamine by thoracic surgery, developed SVT and atrial fibrillation with RVR, hence dopamine was discontinued. Chest x-ray showed bibasilar atelectasis especially at the left base. And that is expected. Continues to have mediastinal and pleural chest tubes noted. With fairly good amount of drainage overnight. WBC count today is 12.2 hemoglobin is 13.8. Electrolytes are normal. Bicarb is a bit low at 17. Renal profile is normal Reevaluated today on 07/23/2020, patient remains in the ICU, on 2 L nasal cannula, O2 sats is 95%. She is on IV fluid at 50 mL/h, she is on insulin at 6 units per hour. Patient's cardiac output is 5.0 cardiac index is 2.6. Minimal drainage from chest tubes, and these will be removed today. Lasix was recommend ed by nephrology, however her chest x-ray does not show any evidence of heart failure. Renal functioning is a bit worse, patient may have developed acute kidney injury. Patient is status post 2 vessel CABG and MVR. Her initial presentation was a presentation of non-ST elevation myocardial infarction, and severe LV dysfunction. The worsening renal profile could be cardiorenal. Labs were reviewed today, WBC count is 18.9 hemoglobin 8.6 index was are normal BUN is 30 creatinine is worse 2.81. Patient received a total of 2 units of packed RBCs, yesterday. Patient was reevaluated today on 07/24/2020, patient remains in the ICU, sitting in the recliner, denies any pain or shortness of breath, she feels generally weak. Patient is in sinus bradycardia, and she is being paced up to a rate of 70. She is hemodynamically stable, urine output is in the range of 30-40 mL per hour. Her atrial fibrillation has resolved. However her platelets are down to 74,000, and the heparin induced thrombocytopenia workup is pending.In the meantime, heparin is on hold. Patient is doing well with incentive spirometer. And she seems to be hemodynamically stable WBC count is 14.1 hemoglobin is 8.1. The left lites are normal renal profile is a bit worse with a creatinine of 2.85 BUN is 35 Patient was reevaluated today on 07/25/2020, remains in the ICU, sitting at a bedside chair, she is actually on room air, doing great. Renal functioning is slightly better with a creatinine of 2.74 hemoglobin is 8.7,02 saturation 94%. Patient had or her tubes removed, continues to have a right IJ Cordis. She received Lasix 40 mg IV push today. Chest x-ray showed mostly atelectasis at the bases, no clear-cut evidence of CHF WBC count is 11.1 hemoglobin is 8.7. Electrolytesenc normal. Patient was reevaluated today on 07/26/2020, remains in the ICU, sitting up in a recliner, patient is on room air, denies any pain or shortness of breath, doing a bit better with incentive spirometry, able to achieve about 700-800 mL. Continues to be in sinus rhythm with premature atrial contractions, she is hemo dynamically stable not requiring any inotropes or process. Her urine output is excellent, 50-1 75 mL per hour. Her labs are noted to be normal creatinine is 2.15. Liver enzymes are improving. Overall the patient is steadily progressing and improving on a regular basis. Chest x-ray showed minimal small pleural effusions and atelectasis, expected. Objective - Vital Signs Vital signs: Vital Signs Temp 98.1 F 07/26/20 12:00 Pulse 63 07/26/20 12:00 Resp 20 07/26/20 12:00 BP 127/61 07/26/20 12:00 Pulse Ox 95 07/26/20 12:00 Intake & Output 07/25/20 07/26/20 07/26/20 18:59 06:59 18:59 Intake Total 723 276 166 Output Total 1335 1095 525 Balance -612 -819 -359 Weight 93.1 kg Intake: IV 273 276 166 Magnesium Sulfate-D5w Pmx 100 1 gm In Dextrose/Water 1 100ml.bag @ 100 mls/hr IVPB Q1H CALLY Rx#: [id number] Pressure Bag 33 36 6 Sodium Chloride 0.9% 1, 240 240 60 000 ml @ 20 mls/hr IV . Q24H CALLY Rx#:[id number] Oral 450 Output: Urine 1335 1095 525 Other: Voiding Method Indwelling Catheter Indwelling Catheter Indwelling Catheter ABP, PAP, CO, CI - Last Documented Arterial Blood Pressure 98/73 Pulmonary Artery Pressure 50/29 Cardiac Output 5.5 Cardiac Index 2.9 - Exam Physical Exam revealed a 89-year-old female in no distress. On room air Head: Atraumatic, normocephalic. HEENT:[Neck is supple.] [No neck masses.] [No thyromegaly.] [No JVD.] Right IJ [place]/cordis noted. Chest: [Symmetrical chest expansion, diminished breath sounds at the bases no rhonchi and no wheezes Cardiac Exam: Patient has a paced rhythm. [Normal S1 and S2, no S3 gallop, 2/6 systolic murmur thought the precordium. Abdomen: [Soft, nontender, no megaly, no rebound, no guarding, normal bowel sounds.] Extremities: [No clubbing, no edema, no cyanosis.] Neurological Exam: [No focal neurologic deficit.] Alert oriented 3 no focal deficits. Psychiatric: Normal mood, affect and normal mental status examination. Skin: No rashes. - Labs CBC & Chem 7: 07/26/20 03:00 07/26/20 03:00 Labs: Abnormal Lab Results - Last 24 Hours (Table) 07/25/20 07/25/20 07/26/20 Range/Units 16:46 20:54 03:00 RBC 2.66 L (3.80-5.40) m/uL Hgb 8.8 L (11.4-16.0) gm/dL Hct 24.9 L (34.0-46.0) % Plt Count 87 L (150-450) k/uL Sodium (137-145) mmol/L Potassium (3.5-5.1) mmol/L BUN (7-17) mg/dL Creatinine (0.52-1.04) mg/dL Glucose (74-99) mg/dL POC Glucose (mg/dL) 174 H 157 H (75-99) mg/dL Calcium (8.4-10.2) mg/dL AST (14-36) U/L ALT (4-34) U/L Alkaline Phosphatase (38-126) U/L Total Protein (6.3-8.2) g/dL Albumin (3.5-5.0) g/dL 07/26/20 07/26/20 07/26/20 Range/Units 03:00 06:26 12:19 RBC (3.80-5.40) m/uL Hgb (11.4-16.0) gm/dL Hct (34.0-46.0) % Plt Count (150-450) k/uL Sodium 133 L (137-145) mmol/L Potassium 3.4 L (3.5-5.1) mmol/L BUN 39 H (7-17) mg/dL Creatinine 2.15 H (0.52-1.04) mg/dL Glucose 121 H (74-99) mg/dL POC Glucose (mg/dL) 144 H 211 H (75-99) mg/dL Calcium 8.3 L (8.4-10.2) mg/dL AST 336 H (14-36) U/L ALT 83 H (4-34) U/L Alkaline Phosphatase 180 H (38-126) U/L Total Protein 5.1 L (6.3-8.2) g/dL Albumin 3.1 L (3.5-5.0) g/dL Assessment and Plan Assessment: Impression: Symptomatic multivessel coronary artery disease and acute non-ST elevation myocardial infarction status post 2 vessel bypass surgery, ZARAGOZA to LAD SVG to RCA mitral valve repair, postoperative day #5 Severe LV dysfunction with ejection fraction of 30-35%. Moderate mitral regurgitation requiring surgical repair. Acute on Chronic kidney disease stage III B Type 2 diabetes. Benign essential hypertension. Dyslipidemia. Postoperative atelectasis as expected. Postoperative blood loss anemia, expected. Possible heparin-induced cytopenia, workup is pending. Platelets are down to 68,000. Underlying severe COPD FEV1 is 41%. Elevated liver enzymes, possible congestive hepatopathy. We'll continue to monitor. Recommendation: Continue present supportive care measures., Platelets are improving, hyper remains on hold Increase activity as tolerated. Incentive spirometry. GI and DVT prophylaxis. Continue close monitoring of renal profile. Ambulate. We'll continue to follow. Time with Patient: Less than 30
[2020-07-26 16:51] LABS: Glucose,Whole Blood 156 mg/dL (75-99)
[2020-07-26 20:42] LABS: Glucose,Whole Blood 189 mg/dL (75-99)
[2020-07-26] MEDS: SENNOSIDES-DOCUSATE SODIUM 1 EACH TAB PO SCH (20:53)
[2020-07-26] MEDS: CLOPIDOGREL 75 MG TAB PO SCH (20:53)
[2020-07-26] MEDS: INSULIN DETEMIR (LEVEMIR) 100 UNIT/ML SYR SQ SCH (20:54)
[2020-07-26] MEDS: ACETAMINOPHEN TAB 325 MG TAB PO PRN (23:19)
[2020-07-27 04:12] LABS: Anisocytosis Slight; HCT 27.2 % (34.0-46.0); HGB 9.3 gm/dL (11.4-16.0); MCH 32.5 pg (25.0-35.0); MCHC 34.1 g/dL (31.0-37.0); MCV 95.2 fL (80.0-100.0); Mean Platelet Volume 9.7; Platelet Count 89 k/uL (150-450); RBC 2.85 m/uL (3.80-5.40); RDW 16.1 % (11.5-15.5); WBC 9.3 k/uL (3.8-10.6)
[2020-07-27 04:35] LABS: Albumin 3.1 g/dL (3.5-5.0); Calcium 8.3 mg/dL (8.4-10.2); Magnesium 1.9 mg/dL (1.6-2.3); Total Bilirubin 1.3 mg/dL (0.2-1.3); Total Protein 5.3 g/dL (6.3-8.2)
[2020-07-27] MEDS: INSULIN ASPART (NovoLOG) 100 UNIT/ML VIAL SQ SCH ×4 (04:57→20:41)
[2020-07-27] MEDS: PANTOPRAZOLE 40 MG TABLET PO SCH (06:19)
[2020-07-27] MEDS: MAGNESIUM SULFATE-D5W PMX 1 GM in DEXTROSE/WATER 1 100ML.BAG IVPB SCH ×2 (06:19→07:30)
[2020-07-27] MEDS: carvediloL 3.125 MG TAB PO SCH ×2 (06:19→17:01)
--- NOTE | 2020-07-27 06:20 | P.CONS ---
History of Present Illness - Chief Complaint Cardiac debility - History of Present Illness I had the opportunity to see patient for inpatient rehab consultation with regard to cardiac debility. She was admitted to [facility] July 10 with chest pain. Diagnosis non-STEMI and CHF. Seen by cardiology for known cardiac disease and did undergo cardiac catheterization and SLOANE. Seen by nephrology for known chronic kidney disease. Cardiac disease noted. On July 21 underwent ZARAGOZA, MVR and left atrial appendage. Chest x-rays followed for CHF. Has started therapies. PT reports minimal assistance for bed mobility transfers and 2 person minimal assistance for gait 55 feet, hand-held. OT reports moderate assistance for upper dressing and maximal assistance for lower dressing, bathing, toileting and 2 person minimal assistance for basic self-care transfers. Previous functional history as elicited from patient: 70-year-old right-handed white female who is lives in one floor home with . Both are retired. Patient describes independent with cooking, laundry, driving, standing shower and gait without device. can do for making test as well. PCP Dr. Barnett. Denies tobacco or alcohol. Family history father with HI. Review of Systems Review of systems: ENT: Denies sneezes or discharge. Eyes: Denies discharge or photophobia. Cardiac: Mild sternal discomfort. Pulmonary: Mild shortness of breath. Breast: Denies discharge or lumps. Gastrointestinal: Denies nausea, emesis, constipation, diarrhea. Genitourinary: Denies discharge or frequency. Musculoskeletal: Denies muscle or bone aches. Neurologic: At least mild generalized weakness. Endocrine: Denies shakes or sweats. Oncology: Denies cancers. Dermatologic: Denies rash, itching, pruritus. ALLERGY/immunology: Denies sneezes, rashes. Past Medical History Past Medical History: Coronary Artery Disease (CAD), Diabetes Mellitus, Hyperlipidemia, Hypertension, Myocardial Infarction (HI), Renal Disease, Respiratory Disorder Additional Past Medical History / Comment(s): Stage IIIb/IV kidney disease, heart murmur. Pt had COVID 19 Moderna vaccine on 05/07/20 & 06/04/20. History of Any Multi-Drug Resistant Organisms: None Reported Additional Past Surgical History / Comment(s): skin CA removal, bilateral cataracts Past Anesthesia/Blood Transfusion Reactions: No Reported Reaction Past Psychological History: No Psychological Hx Reported Smoking Status: Never smoker Past Alcohol Use History: None Reported Past Drug Use History: None Reported - Past Family History Father Family Medical History: Myocardial Infarction (HI) (Her father had a heart attack in his mid 40s and from a myocardial infarction at age 64) Additional Family Medical History / Comment(s): "heart issues" Mother Family Medical History: Diabetes Mellitus, Hypertension Medications and Allergies Home Medications Medication Instructions Recorded Confirmed Type Allopurinol [Zyloprim] 100 mg PO DAILY 07/10/20 07/10/20 History Aspirin EC [Ecotrin Low Dose] 81 mg PO DAILY 07/10/20 07/10/20 History Cholecalciferol [Vitamin D3 (25 25 mcg PO DAILY 07/10/20 07/10/20 History Mcg = 1000 Iu)] Glimepiride [Amaryl] 2 mg PO BID 07/10/20 07/10/20 History Losartan Potassium 50 mg PO DAILY 07/10/20 07/10/20 History Metoprolol Succinate (ER) [Toprol 50 mg PO DAILY 07/10/20 07/10/20 History Xl] Pioglitazone [Actos] 30 mg PO DAILY 07/10/20 07/10/20 History Simvastatin [Zocor] 40 mg PO HS 07/10/20 07/10/20 History Spironolactone 50 mg PO HS 07/10/20 07/10/20 History sitaGLIPtin [Januvia] 50 mg PO DAILY 07/10/20 07/10/20 History Allergies Allergy/AdvReac Type Severity Reaction Status Date / Time No Known Allergies Allergy Verified 07/10/20 08:46 Physical Exam Vitals: Vital Signs Temp Pulse Pulse Resp BP Pulse Ox 07/27/20 05:00 62 26 H 144/61 96 07/27/20 04:00 97.6 F 58 L 66 19 127/65 95 07/27/20 03:00 58 L 19 124/54 93 L 07/27/20 02:00 55 L 15 115/62 94 L 07/27/20 01:00 58 L 16 135/62 94 L 07/27/20 00:00 97.4 F L 60 60 14 132/59 93 L 07/26/20 23:00 62 16 127/55 96 07/26/20 22:30 62 23 94 L 07/26/20 22:00 60 17 136/61 94 L 07/26/20 21:30 71 19 94 L 07/26/20 21:00 61 15 93 L 07/26/20 20:32 62 07/26/20 20:30 62 21 137/61 100 07/26/20 20:14 66 07/26/20 20:00 64 60 14 140/61 97 07/26/20 19:30 63 15 96 07/26/20 19:00 64 16 121/77 95 07/26/20 18:30 67 23 121/77 94 L 07/26/20 18:00 73 30 H 115/72 95 07/26/20 17:30 65 29 H 121/77 95 07/26/20 17:00 65 18 128/91 96 07/26/20 16:30 61 9 L 128/91 93 L 07/26/20 16:00 63 10 L 117/58 95 07/26/20 15:30 67 19 117/58 99 07/26/20 15:27 67 07/26/20 15:00 63 12 116/55 96 07/26/20 14:30 62 22 116/55 93 L 07/26/20 14:00 63 15 112/55 94 L 07/26/20 13:31 90 22 112/55 93 L 07/26/20 13:00 64 20 130/107 95 07/26/20 12:30 64 24 130/107 97 07/26/20 12:00 98.1 F 63 20 127/61 95 07/26/20 11:30 63 22 127/61 94 L 07/26/20 11:18 60 07/26/20 11:07 70 07/26/20 11:00 77 24 127/61 97 07/26/20 10:30 58 L 19 127/61 95 07/26/20 10:00 58 L 18 127/61 93 L 07/26/20 09:30 57 L 18 127/61 92 L 07/26/20 09:00 50 L 16 127/61 96 07/26/20 08:30 78 15 127/61 92 L 07/26/20 08:00 98 F 80 16 101/74 95 07/26/20 07:38 70 07/26/20 07:30 64 10 L 95 07/26/20 07:25 60 07/26/20 07:18 60 07/26/20 07:00 64 26 H 124/50 93 L 07/26/20 06:30 60 16 147/68 92 L Intake and Output 07/26/20 07/26/20 07/27/20 14:59 22:59 06:59 Intake Total 366 200 Output Total 585 300 400 Balance -219 -100 -400 Intake: IV 166 Magnesium Sulfate-D5w Pmx 100 1 gm In Dextrose/Water 1 100ml.bag @ 100 mls/hr IVPB Q1H CALLY Rx#: [id number] Pressure Bag 6 Sodium Chloride 0.9% 1, 60 000 ml @ 20 mls/hr IV . Q24H CALYL Rx#:[id number] Oral 200 200 Output: Urine 585 300 400 Other: Voiding Method Indwelling Catheter Bedside Commode Bedside Commode # Voids 1 0 Weight 93 kg Skin: Atrophic, intact. General: Obese build and comfortable appearance. Head: Normocephalic, atraumatic. Eyes: Symmetric. Pupils equal round. Ears: Symmetric. Hearing within normal limits. Mouth: Clear. Neck: Supple. Carotid without bruit. Cardiac: Regular rate and rhythm. Lungs: Clear anteriorly and posteriorly. Abdomen: Soft active nontender. Overweight. Extremities: Normal tone. Neurological: Mental status: Alert, cooperative, pleasant. Cranial nerves: Symmetric facial tone and trapezius. Motor: Active movement all 4 limbs. Sensation: Intact throughout. DTRs: Symmetric and equal throughout. Mobility: Patient sitting and [place] and reports required only one person assist for transfer. Results CBC & Chem 7: 07/27/20 03:25 07/27/20 03:25 Labs: Abnormal Lab Results - Last 24 Hours (Table) 07/26/20 07/26/20 07/26/20 Range/Units 06:26 12:19 16:50 RBC (3.80-5.40) m/uL Hgb (11.4-16.0) gm/dL Hct (34.0-46.0) % RDW (11.5-15.5) % Plt Count (150-450) k/uL Sodium (137-145) mmol/L BUN (7-17) mg/dL Creatinine (0.52-1.04) mg/dL Glucose (74-99) mg/dL POC Glucose (mg/dL) 144 H 211 H 156 H (75-99) mg/dL Calcium (8.4-10.2) mg/dL AST (14-36) U/L ALT (4-34) U/L Alkaline Phosphatase (38-126) U/L Total Protein (6.3-8.2) g/dL Albumin (3.5-5.0) g/dL 07/26/20 07/27/20 07/27/20 Range/Units 20:40 03:25 03:25 RBC 2.85 L (3.80-5.40) m/uL Hgb 9.3 L (11.4-16.0) gm/dL Hct 27.2 L (34.0-46.0) % RDW 16.1 H (11.5-15.5) % Plt Count 89 L (150-450) k/uL Sodium 132 L (137-145) mmol/L BUN 38 H (7-17) mg/dL Creatinine 1.74 H (0.52-1.04) mg/dL Glucose 128 H (74-99) mg/dL POC Glucose (mg/dL) 189 H (75-99) mg/dL Calcium 8.3 L (8.4-10.2) mg/dL AST 157 H (14-36) U/L ALT 68 H (4-34) U/L Alkaline Phosphatase 134 H (38-126) U/L Total Protein 5.3 L (6.3-8.2) g/dL Albumin 3.1 L (3.5-5.0) g/dL Assessment and Plan (1) CHF (congestive heart failure) Current Visit: Yes Status: Acute Code(s): I50.9 - HEART FAILURE, UNSPECIFIED SNOMED Code(s): 75544025 (2) NSTEMI (non-ST elevated myocardial infarction) Current Visit: Yes Status: Acute Code(s): I21.4 - NON-ST ELEVATION (NSTEMI) MYOCARDIAL INFARCTION SNOMED Code(s): 98882453 Plan: : 1. Cardiac debility with non-STEMI, CHF and recent CABG. 2. Chronic kidney disease. 3. Hypertension. 4. Dyslipidemia. 5. Diabetes. Comments and plan: At this time PT and OT are ongoing. Safety concerns noted demonstrated ability tolerate and benefit from therapies. Discussed possible inpatient rehab patient and she seems agreeable if necessary. Note currently in ICU.
[2020-07-27 06:42] LABS: Glucose,Whole Blood 155 mg/dL (75-99)
[2020-07-27] MEDS: IPRATROPIUM-ALBUTEROL 3 ML NEB INHALATION SCH ×4 (07:41→21:05)
--- NOTE | 2020-07-27 08:17 | XR ---
EXAMINATION TYPE: XR chest 1V portable DATE OF EXAM: 07/27/2020 COMPARISON: Chest x-ray 07/26/2020 HISTORY: Status post cardiac surgery TECHNIQUE: Single frontal view of the chest is obtained. FINDINGS: There is some improvement in aeration, improvement in the central vascularity and intersti tium. No evident pneumothorax. Basilar increased attenuation shows a similar appearance. Patient is p ost median sternotomy and left atrial appendage clip placement, cardiac valve replacement. Cardiac me diastinal silhouette is similar appearance. There are overlying artifacts. IMPRESSION: Improvement in patient's volume status in aeration, there may be small basilar effusions , atelectasis, edema, pneumonia felt to be less likely.
[2020-07-27] MEDS: allopurinoL 100 MG TAB PO SCH (08:33)
[2020-07-27] MEDS: ASPIRIN 81 MG PO SCH (08:33)
[2020-07-27] MEDS: hydrALAZINE HCL 10 MG TAB PO SCH (08:33)
[2020-07-27] MEDS: ISOSORBIDE DINITRATE 10 MG TAB PO SCH ×4 (08:36→20:39)
[2020-07-27] MEDS: SODIUM BICARBONATE TAB 650 MG TAB PO SCH ×2 (08:36→20:39)
[2020-07-27] MEDS: FUROSEMIDE 10 MG/ML 4 ML VIAL IV SCH ×2 (08:37→20:41)
--- NOTE | 2020-07-27 10:16 | PN ---
PROGRESS NOTE Patient is seen for followup for acute kidney injury on top of chronic kidney disease. She is status post coronary artery bypass surgery, doing fairly well. Patient is being diuresed for CHF and volume overload. PHYSICAL EXAMINATION: On examination today, blood pressure is 143/59, heart rate 62 per minute. She is afebrile. EXAMINATION OF THE HEART: S1, S2. EXAMINATION OF THE LUNGS: Bilateral breath sounds are heard. Abdomen is soft, nontender. Examination of lower extremities shows edema 2+ bilaterally. 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 LABS: Labs show sodium 132, potassium 4.0, BUN 38, creatinine 1.74, hemoglobin 9.3 g/dL. ASSESSMENT: 1. Acute kidney injury, acute tubular necrosis, currently improving. 2. Chronic kidney disease, stage 3B to 4, secondary to ischemic nephropathy and diabetic kidney disease. Baseline creatinine about 1.5-2 mg/dL. 3. Congestive heart failure acute on top of chronic mainly systolic, ejection fraction 30% to 35%. 4. Coronary artery disease, status post coronary artery bypass surgery with previous cardiac cath on 07/12/2020. 5. Atrial fibrillation with controlled ventricular response. PLAN: Continue with current dose of Lasix. Continue with Aranesp. Encourage increased oral intake, particularly protein. MMODL / IJN: [id number] /
--- NOTE | 2020-07-27 10:30 | P.PN ---
Subjective Progress Note Date: 07/27/20 Principal diagnosis: Symptomatic diffuse multivessel coronary artery disease, non-STEMI this admission, acute on chronic systolic congestive heart failure,with preoperative EF 30-35%, moderate functional mitral valve regurgitation. Past medical history significant for evidence of old anterior wall myocardial infarction, chronic kidney disease stage IV, diabetes mellitus type 2, hypertension, hyperlipidemia, lifetime nonsmoker with severe obstruction and preoperative FEV1 41% of predicted, obesity with a BMI of 36.3 kg/m2, and family history of early onset coronary artery disease with her father having a myocardial infarction in his mid 40s. POD #6 double vessel coronary artery bypass grafting using the left internal mammary artery to left anterior descending coronary artery, a reverse greater saphenous vein graft from the aorta to the right coronary artery, mitral valve repair with reduction posterior annuloplasty using 26 mm AnnuloFlex band, exclusion of the left atrial appendage using a 35 mm AtriClip, endoscopic harvesting of the left greater saphenous vein from the groin to below the knee level, intraoperative graft flow measurements using the [employer] system, intraoperative transesophageal echocardiogram and epi-aortic scanning. Postoperative acute blood loss anemia and thrombocytopenia, expected given hemodilution and cardiopulmonary bypass pump. Atrial fibrillation with rapid ventricular response, known common occurrence after open heart surgery, currently normal sinus rhythm. Elevated transaminases, likely from congestion. The patient was seen in follow-up today 07/27/2020 at her bedside in the intensive care unit. Currently she is sitting up to the bedside chair, is awake, alert and oriented 3 and is in no acute apparent distress. Denies any complaints of pain or shortness of breath at this time. Reports that she has been ambulating in the intensive care unit with minimal assistance from nursing staff. She remains hemodynamically stable and is currently on no inotropic or pressor support. Atrial and ventricular epicardial pacemaker wires in place and grounded. Bedside telemetry showing normal sinus rhythm heart rate 67 BPM. Oxygen saturations are 97% on room air and she is achieving 1000 mL on her incentive spirometry with much encouragement. Laboratory results this morning show a WBC count 9.3, hemoglobin 9.3, hematocrit 27.2, platelets 89, sodium 132, potassium 4.0, BUN 38, creatinine 1.74, magnesium 1.9, and her AST and ALT are trending down 157/68. Objective - Vital Signs Vital signs: Vital Signs Temp 97.6 F 07/27/20 04:00 Pulse 64 07/27/20 07:25 Resp 22 07/27/20 07:00 BP 150/65 07/27/20 07:00 Pulse Ox 97 07/27/20 07:00 Intake & Output 07/26/20 07/27/20 07/27/20 18:59 06:59 18:59 Intake Total 566 640 Output Total 585 850 Balance -19 -210 Weight 93 kg Intake: IV 166 100 Magnesium Sulfate-D5w Pmx 100 100 1 gm In Dextrose/Water 1 100ml.bag @ 100 mls/hr IVPB Q1H [facility] Rx#: [id number] Pressure Bag 6 Sodium Chloride 0.9% 1, 60 000 ml @ 20 mls/hr IV . Q24H [facility] Rx#:[id number] Oral 400 540 Output: Urine 585 850 Other: Voiding Method Indwelling Catheter Bedside Commode # Voids 0 1 ABP, PAP, CO, CI - Last Documented Arterial Blood Pressure 98/73 Pulmonary Artery Pressure 50/29 Cardiac Output 5.5 Cardiac Index 2.9 - Exam CONSTITUTIONAL: Sitting up to the bedside chair appears comfortable, cooperative, no apparent acute distress. HEENT: Pupils are round and equally reacting to light. No scleral icterus. No JVD, neck is supple. Normocephalic. Mucous membranes are pink and moist. RESPIRATORY: Lungs sounds essentially clear throughout, diminished to her bilateral bases. Respirations are symmetrical, and nonlabored. Currently on room air with oxygen saturations 97%. Able to achieve 1000 mL on incentive spirometry. CARDIOVASCULAR: S1, S2 present, negative for S3, gallop or murmur. Regular rate and rhythm, sinus rhythm on her bedside telemetry with aheart rate 67 BPM. Palpable peripheral pulses bilaterally. Sternum is stable. Atrial and ventricular epicardial pacemaker wires in place and grounded. Heart hugger is in place and she is demonstrating appropriate use. Knee-high ALEX hose and sequential compression devices in place to bilateral lower extremities. Trace edema to her bilateral lower extremities. GASTROINTESTINAL: Abdomen soft, nontender, nondistended. Active bowel sounds present 4 quadrants. Tolerating diet. No guarding or rigidity no organomegaly appreciated. bowel movement on 07/25/2020. Passing flatus. GENITOURINARY: Continues to void. 550 mL output in the last 8 hours. INTEGUMENTARY: Skin is warm and dry. No clubbing or cyanosis is present. Midline sternal incision is clean, dry and approximated. No drainage or redness is present. Gauze dressing is clean, dry and in place. Left lower extremity EVH site is clean, dry and approximated. No drainage or redness is present. NEUROLOGIC: Cranial nerves II through XII intact. No focal neurological deficits. MUSKULOSKELETAL: Able to move all extremities, strength equal bilaterally, gait normal. generalized weakness. PSYCHIATRIC: Alert and oriented to person place and time, appropriate affect, intact judgment and insight. - Labs CBC & Chem 7: 07/27/20 03:25 07/27/20 03:25 Labs: Abnormal Lab Results - Last 24 Hours (Table) 07/26/20 07/26/20 07/26/20 Range/Units 12:19 16:50 20:40 RBC (3.80-5.40) m/uL Hgb (11.4-16.0) gm/dL Hct (34.0-46.0) % RDW (11.5-15.5) % Plt Count (150-450) k/uL Sodium (137-145) mmol/L BUN (7-17) mg/dL Creatinine (0.52-1.04) mg/dL Glucose (74-99) mg/dL POC Glucose (mg/dL) 211 H 156 H 189 H (75-99) mg/dL Calcium (8.4-10.2) mg/dL AST (14-36) U/L ALT (4-34) U/L Alkaline Phosphatase (38-126) U/L Total Protein (6.3-8.2) g/dL Albumin (3.5-5.0) g/dL 07/27/20 07/27/20 07/27/20 Range/Units 03:25 03:25 06:41 RBC 2.85 L (3.80-5.40) m/uL Hgb 9.3 L (11.4-16.0) gm/dL Hct 27.2 L (34.0-46.0) % RDW 16.1 H (11.5-15.5) % Plt Count 89 L (150-450) k/uL Sodium 132 L (137-145) mmol/L BUN 38 H (7-17) mg/dL Creatinine 1.74 H (0.52-1.04) mg/dL Glucose 128 H (74-99) mg/dL POC Glucose (mg/dL) 155 H (75-99) mg/dL Calcium 8.3 L (8.4-10.2) mg/dL AST 157 H (14-36) U/L ALT 68 H (4-34) U/L Alkaline Phosphatase 134 H (38-126) U/L Total Protein 5.3 L (6.3-8.2) g/dL Albumin 3.1 L (3.5-5.0) g/dL Assessment and Plan Assessment: 1. Symptomatic diffusely calcified multivessel coronary artery disease, non- STEMI this admission, status post 2 vessel CABG 2. Acute on chronic systolic congestive heart failure, with her preoperative EF 30-35% 3. Moderate mitral valve regurgitation on SLOANE, status post 26 mm AnnuloFlex band 4. Dyspnea on admission, secondary to acute heart failure, proBNP on admission 14,500 5. Chronic kidney disease stage IV, baseline creatinine around 1.9 per nephrology 6. Diabetes mellitus type 2, hemoglobin A1c is 8.7% 7. Hypertension 8. Hyperlipidemia, treated, cholesterol 157, LDL 75 9. Lifetime nonsmoker 10. Severe obstruction, preoperative FEV1 41% of predicted with moderate increased operative risk per pulmonology 11. Family history of early onset coronary artery disease with her father having a myocardial infarction in his mid 40s 12. Evidence of old anterior wall myocardial infarction 13. Postoperative acute blood loss anemia and thrombocytopenia, expected 14. Atrial fibrillation with rapid ventricular response, currently sinus 15. Elevation of transaminases, likely from congestion Plan: 1. Continue to optimize medical management with low dose aspirin, Plavix, and beta charity. Continue to hold statin, secondary to increased transaminases, will reintroduce statin when AST/ALT normalize. 2. Continue hydralazine/isordil which was initiated by cardiology for afterload reduction with plans to transition to ANNABELLE/ARB when kidney function allows. Increase hydralazine to 25 mg by mouth 4 times a day. 3. Continue to encourage incentive spirometry use 10x every hour while, bronchodilators per pulmonology. 4. Increase activity, ambulate as tolerated. PT/OT/cardiac rehab following. 5. Will monitor daily labs and chest CXR. HIT panel sent, results remain pending. Replace potassium and magnesium per protocol. 6. Insulin management per primary care. Patient needs tight blood sugar control to promote healing, and union of the sternal bone. 7. GI/DVT prophylaxis. Continue SCDs, heparin discontinued secondary to thrombocytopenia, no Arixtra secondary to kidney disease. 8. Continue to monitor urine output. May bladder scan and straight cath for >300 mL residual. 9. Strict accurate I/Os. Daily weights. 10. We will remove her atrial and ventricular epicardial pacemaker wires today. Bed rest for 1 hour post epicardial pacemaker wire removal. 11. Pain control with current medication regimen. No toradol due to CKD. Avoid nephrotoxic agents. 12. Anticipate discharge home in the next 24-48 hours with home health care. 13. We will place transfer orders today to third floor cardiac stepdown unit. 14. Start on potassium chloride 40 mEq by mouth twice a day while on Lasix. 15. More recommendations to follow based on patient's clinical course. Time with Patient: Greater than 30
--- NOTE | 2020-07-27 10:40 | P.PN ---
Subjective Progress Note Date: 07/27/20 Principal diagnosis: Status post 2 vessel bypass, and mitral valve repair. Reevaluated today on 07/22/2020, patient underwent surgery as noted above, she was extubated last night at 1043. She is now on nasal cannula at 3 L/m, patient will be receiving 2 units of packed RBCs this morning for postoperative blood loss anemia hemoglobin earlier was 6.0. Patient is doing poorly with incentive spirometer. Her CVP is 17 today, cardiac output was 5.9, cardiac index is 3.1, patient remains on amiodarone at 0.5 mg/m, Primacor at 0.15 mcg/kg/m, is also on IV fluid at 50 mL/h 0.9 normal saline. Pulmonary artery pressure is 53/23. And cardiac output and index as noted. Patient at one point was placed on dopamine by thoracic surgery, developed SVT and atrial fibrillation with RVR, hence dopamine was discontinued. Chest x-ray showed bibasilar atelectasis especially at the left base. And that is expected. Continues to have mediastinal and pleural chest tubes noted. With fairly good amount of drainage overnight. WBC count today is 12.2 hemoglobin is 13.8. Electrolytes are normal. Bicarb is a bit low at 17. Renal profile is normal Reevaluated today on 07/23/2020, patient remains in the ICU, on 2 L nasal cannula, O2 sats is 95%. She is on IV fluid at 50 mL/h, she is on insulin at 6 units per hour. Patient's cardiac output is 5.0 cardiac index is 2.6. Minimal drainage from chest tubes, and these will be removed today. Lasix was recommended by nephrology, however her chest x-ray does not show any evidence of heart failure. Renal functioning is a bit worse, patient may have developed acute kidney injury. Patient is status post 2 vessel CABG and MVR. Her initial presentation was a presentation of non-ST elevation myocardial infarction, and severe LV dysfunction. The worsening renal profile could be cardiorenal. Labs were reviewed today, WBC count is 18.9 hemoglobin 8.6 index was are normal BUN is 30 creatinine is worse 2.81. Patient received a total of 2 units of packed RBCs, yesterday. Patient was reevaluated today on 07/24/2020, patient remains in the ICU, sitting in the recliner, denies any pain or shortness of breath, she feels generally weak. Patient is in sinus bradycardia, and she is being paced up to a rate of 70. She is hemodynamically stable, urine output is in the range of 30-40 mL per hour. Her atrial fibrillation has resolved. However her platelets are down to 74,000, and the heparin induced thrombocytopenia workup is pending.In the meantime, heparin is on hold. Patient is doing well with incentive spirometer. And she seems to be hemodynamically stable WBC count is 14.1 hemoglobin is 8.1. The left lites are normal renal profile is a bit worse with a creatinine of 2.85 BUN is 35 Patient was reevaluated today on 07/25/2020, remains in the ICU, sitting at a bedside chair, she is actually on room air, doing great. Renal functioning is slightly better with a creatinine of 2.74 hemoglobin is 8.7,02 saturation 94%. Patient had or her tubes removed, continues to have a right IJ Cordis. She received Lasix 40 mg IV push today. Chest x-ray showed mostly atelectasis at the bases, no clear-cut evidence of CHF WBC count is 11.1 hemoglobin is 8.7. Electrolytesenc normal. Patient was reevaluated today on 07/26/2020, remains in the ICU, sitting up in a recliner, patient is on room air, denies any pain or shortness of breath, doing a bit better with incentive spirometry, able to achieve about 700-800 mL. Continues to be in sinus rhythm with premature atrial contractions, she is hemodynamically stable not requiring any inotropes or process. Her urine output is excellent, 50-1 75 mL per hour. Her labs are noted to be normal creatinine is 2.15. Liver enzymes are improving. Overall the patient is steadily progressing and improving on a regular basis. Chest x-ray showed minimal small pleural effusions and atelectasis, expected. Progress note dated 07/27/2020. 70-year-old female, postoperative day #6, status post 2 vessel bypass grafting, and mitral valve repair. Currently, the patient's doing well. She is on room air. She's not receiving any IV fluids. Her respiratory status and hemody namics status is stable. Her chest x-ray showing post surgical changes only, and her chest x-ray looks actually quite good. She's doing well on her incentive spirometer. She's getting 2 L on her IS. White count 9.3, he will 9.3, hematocrit 27.2, platelet count 89,000. Sodium 132, potassium 4, chlorides 100, CO2 23, anion gap 9, BUN 38, creatinine 1.74. Chest x-ray does show improvement in the patient's volume status. Objective - Vital Signs Vital signs: Vital Signs Temp 97.7 F 07/27/20 08:00 Pulse 62 07/27/20 09:00 Resp 18 07/27/20 09:00 BP 143/59 07/27/20 09:00 Pulse Ox 94 L 07/27/20 09:00 Intake & Output 07/26/20 07/27/20 07/27/20 18:59 06:59 18:59 Intake Total 566 640 300 Output Total 585 850 100 Balance -19 -210 200 Weight 93 kg Intake: IV 166 100 Magnesium Sulfate-D5w Pmx 100 100 1 gm In Dextrose/Water 1 100ml.bag @ 100 mls/hr IVPB Q1H [facility] Rx#: [id number] Pressure Bag 6 Sodium Chloride 0.9% 1, 60 000 ml @ 20 mls/hr IV . Q24H [facility] Rx#:[id number] Oral 400 540 300 Output: Urine 585 850 100 Other: Voiding Method Indwelling Catheter Bedside Commode Bedside Commode # Voids 0 1 ABP, PAP, CO, CI - Last Documented Arterial Blood Pressure 98/73 Pulmonary Artery Pressure 50/29 Cardiac Output 5.5 Cardiac Index 2.9 - Exam No acute distress, oriented 3. No evidence of respiratory distress, audible wheezing, or use of accessory muscles. Currently, patient's on room air. HEENT examination is grossly unremarkable. Mucous membranes are moist. No oral lesions. Neck supple. Full range of motion. No adenopathy thyromegaly or neck vein distention. Cardiovascular examination reveals regular rhythm rate. S1-S2 normal. No S3 or S4. No discernible murmur noted. Heart rate 62 bpm. Lungs reveal mostly clear breath sounds. A few scattered rhonchi noted. No wheezes or crackles. Breath sounds equal bilaterally. Abdomen soft bowel sounds are heard. No masses or tenderness. Extremities are intact. No cyanosis clubbing or edema. Skin is without rash or lesion. Neurologic examination is brief but nonfocal. - Labs CBC & Chem 7: 07/27/20 03:25 07/27/20 03:25 Labs: Abnormal Lab Results - Last 24 Hours (Table) 07/26/20 07/26/20 07/26/20 Range/Units 12:19 16:50 20:40 RBC (3.80-5.40) m/uL Hgb (11.4-16.0) gm/dL Hct (34.0-46.0) % RDW (11.5-15.5) % Plt Count (150-450) k/uL Sodium (137-145) mmol/L BUN (7-17) mg/dL Creatinine (0.52-1.04) mg/dL Glucose (74-99) mg/dL POC Glucose (mg/dL) 211 H 156 H 189 H (75-99) mg/dL Calcium (8.4-10.2) mg/dL AST (14-36) U/L ALT (4-34) U/L Alkaline Phosphatase (38-126) U/L Total Protein (6.3-8.2) g/dL Albumin (3.5-5.0) g/dL 07/27/20 07/27/20 07/27/20 Range/Units 03:25 03:25 06:41 RBC 2.85 L (3.80-5.40) m/uL Hgb 9.3 L (11.4-16.0) gm/dL Hct 27.2 L (34.0-46.0) % RDW 16.1 H (11.5-15.5) % Plt Count 89 L (150-450) k/uL Sodium 132 L (137-145) mmol/L BUN 38 H (7-17) mg/dL Creatinine 1.74 H (0.52-1.04) mg/dL Glucose 128 H (74-99) mg/dL POC Glucose (mg/dL) 155 H (75-99) mg/dL Calcium 8.3 L (8.4-10.2) mg/dL AST 157 H (14-36) U/L ALT 68 H (4-34) U/L Alkaline Phosphatase 134 H (38-126) U/L Total Protein 5.3 L (6.3-8.2) g/dL Albumin 3.1 L (3.5-5.0) g/dL Assessment and Plan Assessment: Postop day #6, status post 2 vessel bypass grafting, and mitral valve repair. Acute non-ST segment elevation myocardial infarction. Severe LV dysfunction with ejection fraction of 30-35%. Moderate mitral regurgitation. Acute on chronic stage IIIB kidney disease. Type 2 diabetes mellitus. Benign essential hypertension. Hyperlipidemia. Postoperative atelectasis, improved. Postoperative blood loss anemia. Possible heparin-induced thrombocytopenia. Severe COPD, with an FEV1 that's 41% of predicted. Elevated liver enzymes, secondary to congestive hepatopathy, improved. Plan: Plan dated 07/27/2020. Currently, the patient seems be doing relatively well. From my perspective, she can be transferred out to the floor. She's doing well on her incentive spirometer. Her chest x-rays improved. Her labs are reviewed. She is without any supplemental oxygen or IV fluids. Additional recommendations and suggestions are forthcoming. We do recommend hourly use of incentive spirometer, and deep breathing, coughing, and clearing of secretions. Time with Patient: Less than 30
--- NOTE | 2020-07-27 11:29 | P.PN ---
Subjective Progress Note Date: 07/27/20 HISTORY OF PRESENT ILLNESS: This is a 70 year old female who does not follow with a communications agent on a regular basis who presented to the hospital with chest pain and ruled in for NSTEMI. Patient underwent cardiac cath revealing triple vessel coronary artery disease. She underwent CABG x 2, mitral valve repair, and left atrial appendage removal. Patient examined this morning sitting up in the chair. She denies pain. She denies chest pain or discomfort. Denies shortness of breath. She states she has been ambulating in the hallway with assistance. She is using her incentive spirometer and pulling around 1000cc. Blood pressure 143/59. Heart rate in the 60s. She is on room air with oxygen saturations greater than 92%. She is afebrile. She remains on IV lasix 40mg IV q12 hours per nephrology. Creatinine improving to 1.74 from 2.15 yesterday. AST 157. ALT 68. PHYSICAL EXAM: VITAL SIGNS: Reviewed. GENERAL: Well-developed in no acute distress. NECK: Supple. No JVD or thyromegaly LUNGS: Respirations even and unlabored. Lungs diminished bilaterally. HEART: Regular rate and rhythm. S1 and S2 heard. Incision clean and dry without drainage. Heart hugger present. EXTREMITIES: Normal range of motion. No clubbing or cyanosis. Peripheral pulses intact. No lower extremity edema ASSESSMENT: Unstable angina Non-STEMI Multivessel coronary artery disease, s/p CABG x 2 Moderate mitral regurgitation, s/p mitral valve repair Postoperative paroxysmal atrial fibrillation with RVR Acute on chronic kidney disease Elevated LFTs Hypertension Hyperlipidemia Diabetes Mellitus Nicotine dependence PLAN: Continue IV lasix per nephrology. Monitor kidney function. Continue aspirin, coreg, and plavix Statin on hold due to elevated LFTs Continue hydralazine and isordil. Will transition to ANNABELLE/ARB when creatinine stabilizes Increase activity as tolerated Continue use of incentive spirometer May transfer to from a cardiac standpoint Further recommendations pending patient course Nurse practitioner note has been reviewed by physician. Signing provider agrees with the documented findings, assessment, and plan of care. Objective - Vital Signs Vital signs: Vital Signs Temp 97.7 F 07/27/20 08:00 Pulse 62 07/27/20 09:00 Resp 18 07/27/20 09:00 BP 143/59 07/27/20 09:00 Pulse Ox 94 L 07/27/20 09:00 Intake & Output 07/26/20 07/27/20 07/27/20 18:59 06:59 18:59 Intake Total 566 640 300 Output Total 585 850 100 Balance -19 -210 200 Weight 93 kg Intake: IV 166 100 Magnesium Sulfate-D5w Pmx 100 100 1 gm In Dextrose/Water 1 100ml.bag @ 100 mls/hr IVPB Q1H [facility] Rx#: [id number] Pressure Bag 6 Sodium Chloride 0.9% 1, 60 000 ml @ 20 mls/hr IV . Q24H [facility] Rx#:[id number] Oral 400 540 300 Output: Urine 585 850 100 Other: Voiding Method Indwelling Catheter Bedside Commode Bedside Commode # Voids 0 1 ABP, PAP, CO, CI - Last Documented Arterial Blood Pressure 98/73 Pulmonary Artery Pressure 50/29 Cardiac Output 5.5 Cardiac Index 2.9 - Labs CBC & Chem 7: 07/27/20 03:25 07/27/20 03:25 Labs: Abnormal Lab Results - Last 24 Hours (Table) 07/26/20 07/26/20 07/26/20 Range/Units 12:19 16:50 20:40 RBC (3.80-5.40) m/uL Hgb (11.4-16.0) gm/dL Hct (34.0-46.0) % RDW (11.5-15.5) % Plt Count (150-450) k/uL Sodium (137-145) mmol/L BUN (7-17) mg/dL Creatinine (0.52-1.04) mg/dL Glucose (74-99) mg/dL POC Glucose (mg/dL) 211 H 156 H 189 H (75-99) mg/dL Calcium (8.4-10.2) mg/dL AST (14-36) U/L ALT (4-34) U/L Alkaline Phosphatase (38-126) U/L Total Protein (6.3-8.2) g/dL Albumin (3.5-5.0) g/dL 07/27/20 07/27/20 07/27/20 Range/Units 03:25 03:25 06:41 RBC 2.85 L (3.80-5.40) m/uL Hgb 9.3 L (11.4-16.0) gm/dL Hct 27.2 L (34.0-46.0) % RDW 16.1 H (11.5-15.5) % Plt Count 89 L (150-450) k/uL Sodium 132 L (137-145) mmol/L BUN 38 H (7-17) mg/dL Creatinine 1.74 H (0.52-1.04) mg/dL Glucose 128 H (74-99) mg/dL POC Glucose (mg/dL) 155 H (75-99) mg/dL Calcium 8.3 L (8.4-10.2) mg/dL AST 157 H (14-36) U/L ALT 68 H (4-34) U/L Alkaline Phosphatase 134 H (38-126) U/L Total Protein 5.3 L (6.3-8.2) g/dL Albumin 3.1 L (3.5-5.0) g/dL
[2020-07-27 11:47] LABS: Glucose,Whole Blood 185 mg/dL (75-99)
[2020-07-27] MEDS: POTASSIUM CHLORIDE ER 20 MEQ TAB.ER PO SCH ×2 (11:58→20:39)
[2020-07-27] MEDS: hydrALAZINE HCL 25 MG TAB PO SCH ×3 (13:12→20:40)
--- NOTE | 2020-07-27 13:43 | P.PN ---
Subjective Principal diagnosis: Acute non-ST elevated [place] Multivessel coronary artery disease s/p double vessel bypass grafting, mitral valve repair and left atrial appendage removal Patient is clinically doing well. Patient does have congestive heart failure history with EF of around 30-35%. Patient denied any shortness of breath at this time. Patient has good urine output liver enzymes are improving Constitutional: Denied any fatigue denied any fever. Cardio vascular: denied any chest pain, palpitations Gastrointestinal denied any nausea vomiting Pulmonary: Denied any shortness of breath cough Neurologic denied any new focal deficits All inpatient medications were reviewed and appropriate changes in these medications as dictated in the interval history and assessment and plan. Objective - Vital Signs Vital signs: Vital Signs Temp 97.7 F 07/27/20 08:00 Pulse 62 07/27/20 11:05 Resp 18 07/27/20 09:00 BP 143/59 07/27/20 09:00 Pulse Ox 94 L 07/27/20 09:00 Intake & Output 07/26/20 07/27/20 07/27/20 18:59 06:59 18:59 Intake Total 566 640 300 Output Total 585 850 100 Balance -19 -210 200 Weight 93 kg Intake: IV 166 100 Magnesium Sulfate-D5w Pmx 100 100 1 gm In Dextrose/Water 1 100ml.bag @ 100 mls/hr IVPB Q1H [facility] Rx#: [id number] Pressure Bag 6 Sodium Chloride 0.9% 1, 60 000 ml @ 20 mls/hr IV . Q24H [facility] Rx#:[id number] Oral 400 540 300 Output: Urine 585 850 100 Other: Voiding Method Indwelling Catheter Bedside Commode Bedside Commode # Voids 0 1 ABP, PAP, CO, CI - Last Documented Arterial Blood Pressure 98/73 Pulmonary Artery Pressure 50/29 Cardiac Output 5.5 Cardiac Index 2.9 - Exam PHYSICAL EXAMINATION: GENERAL: The patient is alert and oriented x3, not in any acute distress. Well developed, well nourished. HEENT: Pupils are round and equally reacting to light. EOMI. No scleral icterus. No conjunctival pallor. Normocephalic, atraumatic. No pharyngeal erythema. No thyromegaly. CARDIOVASCULAR: S1 and S2 present. No murmurs, rubs, or gallops. PULMONARY: Chest is clear to auscultation, no wheezing or crackles. ABDOMEN: Soft, nontender, nondistended, normoactive bowel sounds. No palpable organomegaly. MUSCULOSKELETAL: No joint swelling or deformity. EXTREMITIES: No cyanosis, clubbing, or pedal edema. NEUROLOGICAL: Gross neurological examination did not reveal any focal deficits. SKIN: No rashes. - Labs CBC & Chem 7: 07/27/20 03:25 07/27/20 03:25 Labs: Abnormal Lab Results - Last 24 Hours (Table) 07/24/20 07/26/20 07/26/20 Range/Units 04:37 16:50 20:40 RBC (3.80-5.40) m/uL Hgb (11.4-16.0) gm/dL Hct (34.0-46.0) % RDW (11.5-15.5) % Plt Count (150-450) k/uL Sodium (137-145) mmol/L BUN (7-17) mg/dL Creatinine (0.52-1.04) mg/dL Glucose (74-99) mg/dL POC Glucose (mg/dL) 156 H 189 H (75-99) mg/dL Calcium (8.4-10.2) mg/dL AST (14-36) U/L ALT (4-34) U/L Alkaline Phosphatase (38-126) U/L Total Protein (6.3-8.2) g/dL Albumin (3.5-5.0) g/dL Heparin-Ind Plt Ab Scrn 0.754 H (<0.4) OD 07/27/20 07/27/20 07/27/20 Range/Units 03:25 03:25 06:41 RBC 2.85 L (3.80-5.40) m/uL Hgb 9.3 L (11.4-16.0) gm/dL Hct 27.2 L (34.0-46.0) % RDW 16.1 H (11.5-15.5) % Plt Count 89 L (150-450) k/uL Sodium 132 L (137-145) mmol/L BUN 38 H (7-17) mg/dL Creatinine 1.74 H (0.52-1.04) mg/dL Glucose 128 H (74-99) mg/dL POC Glucose (mg/dL) 155 H (75-99) mg/dL Calcium 8.3 L (8.4-10.2) mg/dL AST 157 H (14-36) U/L ALT 68 H (4-34) U/L Alkaline Phosphatase 134 H (38-126) U/L Total Protein 5.3 L (6.3-8.2) g/dL Albumin 3.1 L (3.5-5.0) g/dL Heparin-Ind Plt Ab Scrn (<0.4) OD 07/27/20 Range/Units 11:46 RBC (3.80-5.40) m/uL Hgb (11.4-16.0) gm/dL Hct (34.0-46.0) % RDW (11.5-15.5) % Plt Count (150-450) k/uL Sodium (137-145) mmol/L BUN (7-17) mg/dL Creatinine (0.52-1.04) mg/dL Glucose (74-99) mg/dL POC Glucose (mg/dL) 185 H (75-99) mg/dL Calcium (8.4-10.2) mg/dL AST (14-36) U/L ALT (4-34) U/L Alkaline Phosphatase (38-126) U/L Total Protein (6.3-8.2) g/dL Albumin (3.5-5.0) g/dL Heparin-Ind Plt Ab Scrn (<0.4) OD Assessment and Plan Plan: Multivessel coronary artery disease. Status post two-vessel coronary artery bypass graft on 07/21/20 acute systolic CHF exacerbation, ejection fraction 30-35% and moderate MR, status post mitral valve repair and left atrial appendage. Patient's heart failure is improving at this time. Acute kidney injury. on stage IV chronic kidney disease. Acute hypoxic respiratory failure secondary to both. on O2 via NC non-stemi with chest pain and elevated troponin on admission Diabetes mellitus 2: Blood sugars are very well controlled on present regimen Hypertension Hyperlipidemia Ongoing nicotine addiction DVT prophylaxis Possibility of discharge tomorrow
[2020-07-27 16:58] LABS: Glucose,Whole Blood 223 mg/dL (75-99)
[2020-07-27 20:17] LABS: Glucose,Whole Blood 260 mg/dL (75-99)
[2020-07-27] MEDS: SENNOSIDES-DOCUSATE SODIUM 1 EACH TAB PO SCH (20:38)
[2020-07-27] MEDS: CLOPIDOGREL 75 MG TAB PO SCH (20:39)
[2020-07-27] MEDS: INSULIN DETEMIR (LEVEMIR) 100 UNIT/ML SYR SQ SCH (20:40)
[2020-07-28 05:14] VITALS: RESP 18
[2020-07-28 06:21] LABS: Glucose,Whole Blood 151 mg/dL (75-99)
[2020-07-28] MEDS: carvediloL 3.125 MG TAB PO SCH ×2 (07:00→17:31)
[2020-07-28] MEDS: PANTOPRAZOLE 40 MG TABLET PO SCH (07:00)
[2020-07-28] MEDS: INSULIN ASPART (NovoLOG) 100 UNIT/ML VIAL SQ SCH ×3 (07:00→17:31)
[2020-07-28] MEDS: IPRATROPIUM-ALBUTEROL 3 ML NEB INHALATION SCH ×3 (07:55→16:21)
[2020-07-28 08:06] LABS: Albumin 3.4 g/dL (3.5-5.0); Calcium 8.5 mg/dL (8.4-10.2); Total Bilirubin 1.8 mg/dL (0.2-1.3); Total Protein 5.9 g/dL (6.3-8.2)
[2020-07-28 08:09] LABS: Magnesium 1.9 mg/dL (1.6-2.3); Potassium 4.4 mmol/L (3.5-5.1)
[2020-07-28 08:21] LABS: Anisocytosis Slight; HCT 31.2 % (34.0-46.0); HGB 10.3 gm/dL (11.4-16.0); MCH 31.8 pg (25.0-35.0); MCHC 33.1 g/dL (31.0-37.0); MCV 95.9 fL (80.0-100.0); Macrocytosis Slight; Mean Platelet Volume 8.8; Platelet Count 118 k/uL (150-450); RBC 3.25 m/uL (3.80-5.40); RDW 16.6 % (11.5-15.5); WBC 10.5 k/uL (3.8-10.6)
[2020-07-28] MEDS: SODIUM BICARBONATE TAB 650 MG TAB PO SCH (09:14)
[2020-07-28] MEDS: POTASSIUM CHLORIDE ER 20 MEQ TAB.ER PO SCH (09:14)
[2020-07-28] MEDS: ISOSORBIDE DINITRATE 10 MG TAB PO SCH ×3 (09:14→17:31)
[2020-07-28] MEDS: hydrALAZINE HCL 25 MG TAB PO SCH ×3 (09:14→17:31)
[2020-07-28] MEDS: FUROSEMIDE 10 MG/ML 4 ML VIAL IV SCH (09:14)
[2020-07-28] MEDS: allopurinoL 100 MG TAB PO SCH (09:14)
[2020-07-28] MEDS: ASPIRIN 81 MG PO SCH (09:14)
[2020-07-28] MEDS: MAGNESIUM SULFATE-D5W PMX 1 GM in DEXTROSE/WATER 1 100ML.BAG IVPB SCH ×2 (09:25→11:00)
--- NOTE | 2020-07-28 10:24 | XR ---
EXAMINATION TYPE: XR chest 2V DATE OF EXAM: 07/28/2020 COMPARISON: Chest x-ray 07/27/2020 HISTORY: Postop coronary artery bypass graft TECHNIQUE: Frontal and lateral views of the chest are obtained. FINDINGS: Findings are similar to prior exam. Postop changes again noted. No evident pneumothorax. B ibasilar density persists. Heart size is stable. There are coronary calcifications present. Dominant lung volumes suggest underlying COPD. Patient is rotated. IMPRESSION: Basilar effusions, probable associated atelectasis versus edema, pneumonia not excluded
--- NOTE | 2020-07-28 10:47 | P.PN ---
Subjective This is a pleasant 70-year-old female past medical history significant for diabetes mellitus, hypertension, dyslipidemia and chronic kidney disease. She does not follow with a human resources benefits coordinator on a regular basis. She presented to the hospital with symptoms of unstable angina and was ruled in for non-ST elevated myocardial infarction. Echocardiogram revealed severe hypokinesia of the anteroapical wall and apical segments with ejection fraction of 30%, repeat yesterday reveals EF of 30-35%. She underwent cardiac catheterization revealing triple-vessel coronary artery disease with critical lesion in the mid LAD, significant disease in the mid RCA and moderate disease in the circumflex artery. She has been seen in evaluation by CT surgery. She is seen and examined sitting up in the recliner in no acute distress. She continues to have shortness of breath with exertion and is comfortable at rest. She has had no symptoms of chest discomfort. Repeat EKG this morning reveals sinus mechanism with ongoing persistent T-wave inversions in the precordial leads. No significant changes noted. Blood pressure 130/86 heart rate 70 afebrile maintaining oxygen saturation on nasal cannula. Laboratory data reviewed, WBC 6.6, hemoglobin 9.8, platelets 180, sodium 136, potassium 4.1, creatinine 1.87 and magnesium 1.8. Currently maintained on aspirin 81 mg daily, atorvastatin 80 mg daily, Imdur 30 mg daily and metoprolol 50 mg twice a day. 07/28/2020 Patient seen and examined sitting up in recliner in no acute distress. She den ies symptoms of chest pain, shortness of breath, dizziness or palpitations. Blood pressure 135/61 heart rate 70 afebrile maintaining oxygen saturation on room air. Laboratory data reviewed, WBC 10.5, hemoglobin 10.3, platelets 118, sodium 133, potassium 4.4, creatinine 1.43 and magnesium 1.9. GENERAL: Generalized pallor, no acute distress. NECK: Supple without JVD or thyromegaly. LUNGS: Clear to auscultation. Respiration equal and unlabored. No wheezes, rales or rhonchi. HEART: Regular rate and rhythm with systolic ejection murmur at the left sternal border, no rubs or gallops. S1 and S2 heard. Heart hugger in place. EXTREMITIES: Normal range of motion, no lower extremity edema. No clubbing or cyanosis. Peripheral pulses intact. ASSESSMENT Non-ST elevated myocardial infarction s/p double vessel bypass grafting, mitral valve repair and left atrial appendage removal Acute systolic heart failure Mitral regurgitation, moderate Unstable angina Multivessel coronary artery disease Chronic kidney disease, creatinine at baseline Hypertension Dyslipidemia Diabetes mellitus Chronic nicotine dependence PLAN Possible discharge home today. Continue current medical regimen. Encourage incentive spirometer use while awake. Ongoing supportive care. Follow up with Dr. Pompa upon discharge. Nurse Practitioner note has been reviewed, I agree with a documented findings and plan of care. Patient was seen and examined. Objective - Vital Signs Vital signs: Vital Signs Temp 97.8 F 07/28/20 04:00 Pulse 62 07/28/20 08:06 Resp 18 07/28/20 04:00 BP 135/61 07/28/20 04:00 Pulse Ox 98 07/28/20 04:00 Intake & Output 07/27/20 07/28/20 07/28/20 18:59 06:59 18:59 Intake Total 700 240 Output Total 600 200 Balance 100 40 Weight 91.6 kg Intake: Oral 700 240 Output: Urine 600 200 Other: Voiding Method Bedside Commode Bedside Commode # Voids 3 ABP, PAP, CO, CI - Last Documented Arterial Blood Pressure 98/73 Pulmonary Artery Pressure 50/29 Cardiac Output 5.5 Cardiac Index 2.9 - Labs CBC & Chem 7: 07/28/20 07:42 07/28/20 07:42 Labs: Abnormal Lab Results - Last 24 Hours (Table) 07/24/20 07/27/20 07/27/20 Range/Units 04:37 11:46 16:56 RBC (3.80-5.40) m/uL Hgb (11.4-16.0) gm/dL Hct (34.0-46.0) % RDW (11.5-15.5) % Plt Count (150-450) k/uL Sodium (137-145) mmol/L BUN (7-17) mg/dL Creatinine (0.52-1.04) mg/dL Glucose (74-99) mg/dL POC Glucose (mg/dL) 185 H 223 H (75-99) mg/dL Total Bilirubin (0.2-1.3) mg/dL AST (14-36) U/L ALT (4-34) U/L Total Protein (6.3-8.2) g/dL Albumin (3.5-5.0) g/dL Heparin-Ind Plt Ab Scrn 0.754 H (<0.4) OD 07/27/20 07/28/20 07/28/20 Range/Units 20:16 06:20 07:42 RBC 3.25 L (3.80-5.40) m/uL Hgb 10.3 L (11.4-16.0) gm/dL Hct 31.2 L (34.0-46.0) % RDW 16.6 H (11.5-15.5) % Plt Count 118 L (150-450) k/uL Sodium (137-145) mmol/L BUN (7-17) mg/dL Creatinine (0.52-1.04) mg/dL Glucose (74-99) mg/dL POC Glucose (mg/dL) 260 H 151 H (75-99) mg/dL Total Bilirubin (0.2-1.3) mg/dL AST (14-36) U/L ALT (4-34) U/L Total Protein (6.3-8.2) g/dL Albumin (3.5-5.0) g/dL Heparin-Ind Plt Ab Scrn (<0.4) OD 07/28/20 Range/Units 07:42 RBC (3.80-5.40) m/uL Hgb (11.4-16.0) gm/dL Hct (34.0-46.0) % RDW (11.5-15.5) % Plt Count (150-450) k/uL Sodium 133 L (137-145) mmol/L BUN 30 H (7-17) mg/dL Creatinine 1.43 H (0.52-1.04) mg/dL Glucose 136 H (74-99) mg/dL POC Glucose (mg/dL) (75-99) mg/dL Total Bilirubin 1.8 H (0.2-1.3) mg/dL AST 80 H (14-36) U/L ALT 53 H (4-34) U/L Total Protein 5.9 L (6.3-8.2) g/dL Albumin 3.4 L (3.5-5.0) g/dL Heparin-Ind Plt Ab Scrn (<0.4) OD
--- NOTE | 2020-07-28 11:00 | ECHOF ---
Referral Reason:eval LV function for poss LifeVest MEASUREMENTS -------- HEIGHT: 160.0 cm WEIGHT: 93.0 kg BP: RVIDd: 3.4 cm (< 3.3) IVSd: 1.0 cm (0.6 - 1.1) LVIDd: 5.3 cm (3.9 - 5.3) LVPWd: 1.0 cm (0.6 - 1.1) IVSs: 1.3 cm LVIDs: 4.0 cm LVPWs: 1.1 cm FINDINGS -------- Limited Study The left ventricular size is normal. Left ventricular wall thickness is normal. Overall left vent ricular systolic function is mild-moderately impaired with, an EF between 40 - 45 %. Significant impr ovement in anterior wall motion. xx ml of Lumason was utilized for enhancement of images. CONCLUSIONS -------- 1. The left ventricular size is normal. 2. Left ventricular wall thickness is normal. 3. Overall left ventricular systolic function is mild-moderately impaired with, an EF between 40 - 45 %. FOOD TECHNICIAN: Diamond Dean, [facility]
[2020-07-28 11:23] LABS: Glucose,Whole Blood 195 mg/dL (75-99)
--- NOTE | 2020-07-28 11:25 | P.PN ---
Subjective Progress Note Date: 07/28/20 Principal diagnosis: Symptomatic diffuse multivessel coronary artery disease, non-STEMI this admission, acute on chronic systolic congestive heart failure,with preoperative EF 30-35%, moderate functional mitral valve regurgitation. Past medical history significant for evidence of old anterior wall myocardial infarction, chronic kidney disease stage IV, diabetes mellitus type 2, hypertension, hyperlipidemia, lifetime nonsmoker with severe obstruction and preoperative FEV1 41% of predicted, obesity with a BMI of 36.3 kg/m2, and family history of early onset coronary artery disease with her father having a myocardial infarction in his mid 40s. POD #7 double vessel coronary artery bypass grafting using the left internal mammary artery to left anterior descending coronary artery, a reverse greater saphenous vein graft from the aorta to the right coronary artery, mitral valve repair with reduction posterior annuloplasty using 26 mm AnnuloFlex band, exclusion of the left atrial appendage using a 35 mm AtriClip, endoscopic harvesting of the left greater saphenous vein from the groin to below the knee level, intraoperative graft flow measurements using the Q Interactive system, intraoperative transesophageal echocardiogram and epi-aortic scanning. Postoperative acute blood loss anemia and thrombocytopenia, expected given hemodilution and cardiopulmonary bypass pump. Atrial fibrillation with rapid ventricular response, known common occurrence after open heart surgery, currently normal sinus rhythm. Elevated transaminases, likely from congestion. In in follow-up today 07/28/2020 at her bedside on the cardiac stepdown unit. Currently she is sitting up to the bedside chair, is awake, alert and oriented 3 and is in no acute apparent distress. Denies any complaints of pain or shortness of breath at this time. Continues to ambulate in the hallway with minimal assistance from nursing staff. She reports she ambulated in the intensive care unit hallway yesterday 3 times with minimal assistance. She is anxious to be discharged home. She remains hemodynamically stable and is currently on no inotropic or pressor support. Her atrial and ventricular epicardial pacemaker wires were removed yesterday without incident. A bedside limited 2-D echocardiogram was completed yesterday with results showing an overall left ventricular systolic function to be mild to moderately impaired with an ejection fraction between 40 and 45%. It also demonstrated significant improvement in the anterior wall motion. Oxygen saturations are 98% on room air and she is achieving 750-1000 mL on her incentive spirometry with encouragement. Remote telemetry showing normal sinus rhythm with occasional PACs heart rate 64 BPM. She has been afebrile last 24 hours. Discharge teaching has been reinforced with the patient. Objective - Vital Signs Vital signs: Vital Signs Temp 97.8 F 07/28/20 04:00 Pulse 62 07/28/20 08:06 Resp 18 07/28/20 04:00 BP 135/61 07/28/20 04:00 Pulse Ox 98 07/28/20 04:00 Intake & Output 07/27/20 07/28/20 07/28/20 18:59 06:59 18:59 Intake Total 700 Output Total 600 200 Balance 100 -200 Weight 91.6 kg Intake: Oral 700 Output: Urine 600 200 Other: Voiding Method Bedside Commode Bedside Commode # Voids 3 ABP, PAP, CO, CI - Last Documented Arterial Blood Pressure 98/73 Pulmonary Artery Pressure 50/29 Cardiac Output 5.5 Cardiac Index 2.9 - Exam CONSTITUTIONAL: Sitting up to the bedside chair appears comfortable, cooperativ e, no apparent acute distress. HEENT: Pupils are round and equally reacting to light. No scleral icterus. No JVD, neck is supple. Normocephalic. Mucous membranes are pink and moist. RESPIRATORY: Lungs sounds essentially clear throughout, diminished to her bilateral bases. Respirations are symmetrical, and nonlabored. Currently on room air with oxygen saturations 98%. Able to achieve 750-1000 mL on her incentive spirometry. CARDIOVASCULAR: S1, S2 present, negative for S3, gallop or murmur. Regular rate and rhythm, sinus rhythm with occasional PACs on her remote telemetry, with a heart rate 64 BPM. Palpable peripheral pulses bilaterally. Sternum is stable. Heart hugger is in place and she is demonstrating appropriate use. Knee-high ALEX hose and sequential compression devices in place to bilateral lower extremities. Trace pedal edema. GASTROINTESTINAL: Abdomen soft, nontender, nondistended. Active bowel sounds present 4 quadrants. Tolerating diet. No guarding or rigidity no organomegaly appreciated. bowel movement yesterday on 07/27/2020. Passing flatus. GENITOURINARY: Continues to void. INTEGUMENTARY: Skin is warm and dry. No clubbing or cyanosis is present. Midline sternal incision is clean, dry and approximated. No drainage or redness is present. Gauze dressing is clean, dry and in place. Left lower extremity EVH site is clean, dry and approximated. No drainage or redness is present. NEUROLOGIC: Cranial nerves II through XII intact. No focal neurological deficits. MUSKULOSKELETAL: Able to move all extremities, strength equal bilaterally, gait normal. Generalized weakness. PSYCHIATRIC: Alert and oriented to person place and time, appropriate affect, intact judgment and insight. - Constitutional General appearance: Present: no acute distress, obese - Labs CBC & Chem 7: 07/28/20 07:42 07/28/20 07:42 Labs: Abnormal Lab Results - Last 24 Hours (Table) 07/24/20 07/27/20 07/27/20 Range/Units 04:37 11:46 16:56 POC Glucose (mg/dL) 185 H 223 H (75-99) mg/dL Heparin-Ind Plt Ab Scrn 0.754 H (<0.4) OD 07/27/20 07/28/20 Range/Units 20:16 06:20 POC Glucose (mg/dL) 260 H 151 H (75-99) mg/dL Heparin-Ind Plt Ab Scrn (<0.4) OD Assessment and Plan Assessment: 1. Symptomatic diffusely calcified multivessel coronary artery disease, non- STEMI this admission, status post 2 vessel CABG 2. Acute on chronic systolic congestive heart failure, with her preoperative EF 30-35% 3. Moderate mitral valve regurgitation on SLOANE, status post 26 mm AnnuloFlex band 4. Dyspnea on admission, secondary to acute heart failure, proBNP on admission 14,500 5. Chronic kidney disease stage IV, baseline creatinine around 1.9 per nephrology 6. Diabetes mellitus type 2, hemoglobin A1c is 8.7% 7. Hypertension 8. Hyperlipidemia, treated, cholesterol 157, LDL 75 9. Lifetime nonsmoker 10. Severe obstruction, preoperative FEV1 41% of predicted with moderate increased operative risk per pulmonology 11. Family history of early onset coronary artery disease with her father having a myocardial infarction in his mid 40s 12. Evidence of old anterior wall myocardial infarction 13. Postoperative acute blood loss anemia and thrombocytopenia, expected 14. Atrial fibrillation with rapid ventricular response, currently sinus 15. Elevation of transaminases, likely from congestion Plan: 1. Continue to optimize medical management with low dose aspirin, Plavix, and beta charity. Continue to hold statin, secondary to increased transaminases, will reintroduce statin when AST/ALT normalize. 2. Continue hydralazine/isordil which was initiated by cardiology for afterload reduction with plans to transition to ANNABELLE/ARB when kidney function allows. 3. Continue to encourage incentive spirometry use 10x every hour while, bronchodilators per pulmonology. 4. Increase activity, ambulate as tolerated. PT/OT/cardiac rehab following. 5. Will monitor daily labs and chest CXR. HIT panel result shows 0.754. 6. Insulin management per primary care. Patient needs tight blood sugar control to promote healing, and union of the sternal bone. 7. GI/DVT prophylaxis. Continue SCDs, continue to hold heparin secondary to thrombocytopenia, no Arixtra secondary to kidney disease. 8. Continue to monitor urine output. May bladder scan and straight cath for >300 mL residual. 9. Strict accurate I/Os. Daily weights. 10. Pain control with current medication regimen. No toradol due to CKD. Avoid nephrotoxic agents. 11. Anticipate discharge home today with [facility] care. 12. More recommendations to follow based on patient's clinical course. Time with Patient: Greater than 30
[2020-07-28 11:29] VITALS: TEMP 97.6
--- NOTE | 2020-07-28 12:11 | PN ---
PROGRESS NOTE The patient is seen for followup for chronic kidney disease and acute kidney injury. Her renal function continues to improve post coronary artery bypass surgery. She is currently being diuresed for congestive heart failure exacerbation. Overall, patient is feeling much better. She appears to be stronger. PHYSICAL EXAMINATION: On examination today, blood pressure 135/61, heart rate 70 per minute. She is afebrile. EXAMINATION OF THE HEART: S1, S2. EXAMINATION OF THE LUNGS: Bilateral breath sounds are heard. Abdomen is soft, nontender. Examination of lower extremities shows edema 1+ bilaterally. EXECUTIVE VP exam grossly intact. LABS: Labs show sodium 133, potassium 4.4, BUN 30, creatinine 1.4, hemoglobin 10.3 g/dL. ASSESSMENT: 1. Acute kidney injury, acute tubular necrosis, currently improving. 2. Volume overload congestive heart failure currently improving, continue with current dose of Lasix. 3. Status post coronary artery bypass surgery. 4. Congestive heart failure acute on top of chronic mainly systolic, ejection fraction 30% to 35%. 5. Chronic kidney disease stage 3B, secondary to ischemic nephropathy and diabetic kidney disease. Baseline creatinine about 1.5-2 mg/dL previously. 6. Atrial fibrillation with controlled ventricular response. PLAN: Continue with the current dose of Lasix. Encourage increased oral protein intake. Repeat labs in a.m. MMODL / IJN: [id number] /
[2020-07-28 12:22] VITALS: BP 126/72
[2020-07-28 12:41] VITALS: BMI 35.7
--- NOTE | 2020-07-28 13:39 | P.PN ---
Subjective Progress Note Date: 07/28/20 Principal diagnosis: Symptomatic multivessel coronary artery disease 70-year-old female patient who is being seen for preop pulmonary clearance regarding coronary artery bypass surgery. The patient has multivessel coronary artery disease and she is post family. Morbid conditions include hypertension, hyperlipidemia, diabetes mellitus type 2 and chronic kidney disease stage IIIB/4. She presented to the hospital because of worsening shortness of breath and chest pain. She was ruled in for non-STEMI. Her troponins were elevated and it peaked at 12.7. Pro-calcitonin level was 0.23. Lactic acid level was 1.4. Chest x-ray showed small bilateral pleural effusions. There was also evidence of pulmonary vascular congestion. Cardiac catheterization was performed and please refer to the results as the patient was found to have triple-vessel disease with critical stenosis involving the LAD 60% in the circumflex, 70-80% and RCA. Patient has already received COVID-19 vaccination. Patient has no complaints and currently she is free of any chest pain. Echocardiogram was done and the patient has an ejection fraction of 30-35% and moderate mitral regurgitation. She is currently on room air oxygen and her pulse ox is around 98%. 07/18/2020, condition is stable. No new complaints for now. The patient is hemodynamically stable and the patient is awaiting cardiac surgery and she is tentatively scheduled to undergo the surgery on 07/21/2020. No new complaints otherwise for now. She is being treated with diuretics and she remains on Lasix 40 mg IV every 24 hours. She is on room air oxygen. She is free of any chest pain. She is on Levemir insulin 10 units along with a Silastic coverage. She is using incentive spirometer. Dental clearance was also given. Reevaluated today on 07/20/2020, patient is doing well, denies any shortness of breath, no cough no wheezing no fever no chills, remains on Lasix 40 mg IV push every 24 hours, remains on room air, and she is already cleared for surgery/CABG by Dr. Vargas. Chest x-ray was reviewed and no evidence of active disease. On 07/21/2020 patient seen in follow-up after 2 vessel bypass grafting surgery and mitral valve repair, she seen intubated, sedated on mechanical ventilator, currently on assist-control mode with a rate of 12, tidal volume is 400, FiO2 50% and PEEP of 10. Postoperative blood gases showed pO2 of greater than 400, pCO2 of 38, and pH of 7.40 this was done and FiO2 100% and it has since been dropped down to 50%. Patient is doing well status post ZARAGOZA to the LAD and SVG to the RCA, mitral valve repair, left leg endoscopic vein harvest and exclusion of the left atrial appendage and intraoperative transesophageal echocardiogram. She then pointed with secondary to 50 ML per hour, Diprivan is currently at 35 mics per kilo per minute, insulin drip is at 5 units per hour, and milrinone is at 0.3 mics per kilo per minute. Hemodynamically patient is stable, PA pressure is 34/19, CVP is 10, cardiac output is 5.1, and cardiac index is 2.7, she is age a paced on the monitor, with underlying rhythm of sinus rhythm with a rate of 60 BPM, epicardial wires connected to an external pacemaker box currently at AAI mode with a rate of 80. Midsternal incision is clean dry intact, chest tube sites are clean dry and intact. Patient has 2 mediastinal and one left pleural chest tube. There is 140 mL of sang. output from the left pleural chest tube and 110 mL of sanguinous output from that mediastinal chest tube. Postoperative chest x-ray shows ET tube, NG tube, lung cancer catheter in appropriate positions. No evidence of sizable pneumothorax. On 07/28/2020 patient seen in follow-up on selective care unit. Currently on room air, breathing comfortably, she is resting in the recliner. Today's chest x-ray has been reviewed, showing basilar effusions, probably associated atelectasis versus edema. Patient remains on IV diuretics, 40 mg of Lasix twice daily, fluid balance is difficult to estimate. Output is recorded in occurrences instead of exact amount. No change in weight the last 24 hours. But no worsening edema, no worsening dyspnea, she is on room air, she's using aspirin spirometer. His labs have been reviewed, renal profile is improving, BUN is down to 30 creatinine is 1.43, serum sodium is 133, the rest of the electrolytes are within normal limits, white blood cell count is 10.5, hemoglobin is 10.3 Objective - Vital Signs Vital signs: Vital Signs Temp 97.6 F 07/28/20 08:00 Pulse 70 07/28/20 12:09 Resp 18 07/28/20 04:00 BP 126/72 07/28/20 12:00 Pulse Ox 97 07/28/20 12:00 Intake & Output 07/27/20 07/28/20 07/28/20 18:59 06:59 18:59 Intake Total 700 440 Output Total 600 200 Balance 100 240 Weight 91.6 kg 91.6 kg Intake: Intake, IV Titration 200 Amount Magnesium Sulfate-D5w Pmx 200 1 gm In Dextrose/Water 1 100ml.bag @ 100 mls/hr IVPB Q1H [facility] Rx#: [id number] Oral 700 240 Output: Urine 600 200 Other: Voiding Method Bedside Commode Bedside Commode # Voids 3 2 ABP, PAP, CO, CI - Last Documented Arterial Blood Pressure 98/73 Pulmonary Artery Pressure 50/29 Cardiac Output 5.5 Cardiac Index 2.9 - Exam GENERAL EXAM: 70-year-old white female, currently sitting up in the recliner, on room air comfortable in no apparent distress. HEAD: Normocephalic/atraumatic. EYES: Normal reaction of pupils, equal size. Conjunctiva pink, sclera white. NOSE: Clear with pink turbinates. THROAT: No erythema or exudates. NECK: No masses, no JVD, no thyroid enlargement, no adenopathy. CHEST: No chest wall deformity. Symmetrical expansion. Midsternal incision clean dry and intact, chest tube sites are clean dry and intact, covered with dressings LUNGS: Equal air entry with no crackles, wheeze, rhonchi or dullness. CVS: Regular rate and rhythm, normal S1 and S2, no gallops, no murmurs, no rubs ABDOMEN: Soft, nontender. No hepatosplenomegaly, normal bowel sounds, no guarding or rigidity. EXTREMITIES: No clubbing, no edema, no cyanosis, 2+ pulses and upper and lower extremities. MUSCULOSKELETAL: Muscle strength and tone normal. SPINE: No scoliosis or deformity SKIN: No rashes CENTRAL NERVOUS SYSTEM: Alert and oriented 3 No focal deficits, tone is normal in all 4 extremities. - Labs CBC & Chem 7: 07/28/20 07:42 07/28/20 07:42 Labs: Abnormal Lab Results - Last 24 Hours (Table) 07/27/20 07/27/20 07/28/20 Range/Units 16:56 20:16 06:20 RBC (3.80-5.40) m/uL Hgb (11.4-16.0) gm/dL Hct (34.0-46.0) % RDW (11.5-15.5) % Plt Count (150-450) k/uL Sodium (137-145) mmol/L BUN (7-17) mg/dL Creatinine (0.52-1.04) mg/dL Glucose (74-99) mg/dL POC Glucose (mg/dL) 223 H 260 H 151 H (75-99) mg/dL Total Bilirubin (0.2-1.3) mg/dL AST (14-36) U/L ALT (4-34) U/L Total Protein (6.3-8.2) g/dL Albumin (3.5-5.0) g/dL 07/28/20 07/28/20 07/28/20 Range/Units 07:42 07:42 11:20 RBC 3.25 L (3.80-5.40) m/uL Hgb 10.3 L (11.4-16.0) gm/dL Hct 31.2 L (34.0-46.0) % RDW 16.6 H (11.5-15.5) % Plt Count 118 L (150-450) k/uL Sodium 133 L (137-145) mmol/L BUN 30 H (7-17) mg/dL Creatinine 1.43 H (0.52-1.04) mg/dL Glucose 136 H (74-99) mg/dL POC Glucose (mg/dL) 195 H (75-99) mg/dL Total Bilirubin 1.8 H (0.2-1.3) mg/dL AST 80 H (14-36) U/L ALT 53 H (4-34) U/L Total Protein 5.9 L (6.3-8.2) g/dL Albumin 3.4 L (3.5-5.0) g/dL Assessment and Plan Plan: Assessment: #1. Symptomatic multivessel coronary artery disease and acute non-ST elevated myocardial infarction, status post 2 vessel bypass grafting with ZARAGOZA to the LAD and SVG to RCA, mitral valve repair, left atrial appendage exclusion, postoperative day #6 #2. Routine postoperative ventilator management #3. Severe LV dysfunction with ejection fraction of 30-35% #4. Moderate severe mitral regurgitation status post surgical repair #5. Chronic kidney disease stage IIIB and acute kidney injury #6. Type 2 diabetes mellitus #7. Benign essential hypertension #8. Dyslipidemia #9. Lifetime nonsmoker #10. Postoperative atelectasis, improved #11. Postoperative blood loss anemia #12. Possible heparin-induced thrombocytopenia #13. Severe COPD with FEV1 of 41% predicted 14. Elevated liver enzymes, likely secondary to congestive hepatopathy, improved Plan: Patient is doing well, no worsening dyspnea, Currently on room air, She is diuresing Continue encouraging deep breathing coughing Renal profile is improving Chest x-ray has been reviewed and improving She is anticipated to be discharged to rehab today I performed a history & physical examination of the patient and discussed their management with my nurse practitioner, Eleonora Ward. I reviewed the nurse practitioner's note and agree with the documented findings and plan of care. Lung sounds are positive for diminished breath sounds throughout the lung lazo. The findings and the impression was discussed with the patient. I attest to the documentation by the nurse practitioner. Time with Patient: Less than 30
--- NOTE | 2020-07-28 14:33 | P.PN ---
Subjective Principal diagnosis: Acute non-ST elevated SC Multivessel coronary artery disease s/p double vessel bypass grafting, mitral valve repair and left atrial appendage removal Patient is clinically doing well. Patient does have congestive heart failure history with EF of around 30-35%. Patient denied any shortness of breath at this time. Patient has good urine output liver enzymes are improving 07/28/2020 Patient had a limited echocardiogram which showed improved ejection fraction to 40-45%. Patient blood sugars are fluctuating bit higher. Patient is on a very low-dose of long-acting insulin which will be discontinued. Considering had a heart failure and coronary artery disease history or discontinue pioglitazone patient will be continued on glimepiride 2 mg twice a day and really increase the dose of Januvia to 100 mg daily along with sliding scale. Patient may benefit from medications like Jardiance once considering her heart issues Constitutional: Denied any fatigue denied any fever. Cardio vascular: denied any chest pain, palpitations Gastrointestinal denied any nausea vomiting Pulmonary: Denied any shortness of breath cough Neurologic denied any new focal deficits All inpatient medications were reviewed and appropriate changes in these medications as dictated in the interval history and assessment and plan. Objective - Vital Signs Vital signs: Vital Signs Temp 97.6 F 07/28/20 08:00 Pulse 70 07/28/20 12:09 Resp 18 07/28/20 04:00 BP 126/72 07/28/20 12:00 Pulse Ox 97 07/28/20 12:00 Intake & Output 07/27/20 07/28/20 07/28/20 18:59 06:59 18:59 Intake Total 700 440 Output Total 600 200 Balance 100 240 Weight 91.6 kg 91.6 kg Intake: Intake, IV Titration 200 Amount Magnesium Sulfate-D5w Pmx 200 1 gm In Dextrose/Water 1 100ml.bag @ 100 mls/hr IVPB Q1H [facility] Rx#: [id number] Oral 700 240 Output: Urine 600 200 Other: Voiding Method Bedside Commode Bedside Commode # Voids 3 2 ABP, PAP, CO, CI - Last Documented Arterial Blood Pressure 98/73 Pulmonary Artery Pressure 50/29 Cardiac Output 5.5 Cardiac Index 2.9 - Exam PHYSICAL EXAMINATION: GENERAL: The patient is alert and oriented x3, not in any acute distress. Well developed, well nourished. HEENT: Pupils are round and equally reacting to light. EOMI. No scleral icterus. No conjunctival pallor. Normocephalic, atraumatic. No pharyngeal erythema. No thyromegaly. CARDIOVASCULAR: S1 and S2 present. No murmurs, rubs, or gallops. PULMONARY: Chest is clear to auscultation, no wheezing or crackles. ABDOMEN: Soft, nontender, nondistended, normoactive bowel sounds. No palpable organomegaly. MUSCULOSKELETAL: No joint swelling or deformity. EXTREMITIES: No cyanosis, clubbing, or pedal edema. NEUROLOGICAL: Gross neurological examination did not reveal any focal deficits. SKIN: No rashes. - Labs CBC & Chem 7: 07/28/20 07:42 07/28/20 07:42 Labs: Abnormal Lab Results - Last 24 Hours (Table) 07/27/20 07/27/20 07/28/20 Range/Units 16:56 20:16 06:20 RBC (3.80-5.40) m/uL Hgb (11.4-16.0) gm/dL Hct (34.0-46.0) % RDW (11.5-15.5) % Plt Count (150-450) k/uL Sodium (137-145) mmol/L BUN (7-17) mg/dL Creatinine (0.52-1.04) mg/dL Glucose (74-99) mg/dL POC Glucose (mg/dL) 223 H 260 H 151 H (75-99) mg/dL Total Bilirubin (0.2-1.3) mg/dL AST (14-36) U/L ALT (4-34) U/L Total Protein (6.3-8.2) g/dL Albumin (3.5-5.0) g/dL 07/28/20 07/28/20 07/28/20 Range/Units 07:42 07:42 11:20 RBC 3.25 L (3.80-5.40) m/uL Hgb 10.3 L (11.4-16.0) gm/dL Hct 31.2 L (34.0-46.0) % RDW 16.6 H (11.5-15.5) % Plt Count 118 L (150-450) k/uL Sodium 133 L (137-145) mmol/L BUN 30 H (7-17) mg/dL Creatinine 1.43 H (0.52-1.04) mg/dL Glucose 136 H (74-99) mg/dL POC Glucose (mg/dL) 195 H (75-99) mg/dL Total Bilirubin 1.8 H (0.2-1.3) mg/dL AST 80 H (14-36) U/L ALT 53 H (4-34) U/L Total Protein 5.9 L (6.3-8.2) g/dL Albumin 3.4 L (3.5-5.0) g/dL Assessment and Plan Plan: Multivessel coronary artery disease. Status post two-vessel coronary artery bypass graft on 07/21/20 acute systolic CHF exacerbation, ejection fraction 30-35% and moderate MR, status post mitral valve repair and left atrial appendage. Patient's heart failure is improving at this time. Acute kidney injury. on stage IV chronic kidney disease. Acute hypoxic respiratory failure secondary to both. on O2 via NC non-stemi with chest pain and elevated troponin on admission Diabetes mellitus 2: Discharge and medication regimen as mentioned above. Patient can be discharged from medical perspective Hypertension Hyperlipidemia Ongoing nicotine addiction DVT prophylaxis Possibility of discharge today
--- NOTE | 2020-07-28 15:26 | P.DS ---
Providers Date of admission: 07/10/20 07:30 Expected date of discharge: 07/28/20 Attending physician: Beverly Pickens Consults: 07/10/20 07:30 Consult Physician Urgent Consulting Provider: Tristan Osborne Consult Reason/Comments: NSTEMI Do you want consulting provider notified?: Yes 07/10/20 10:44 Consult Physician Routine Consulting Provider: Melissa Mujica Consult Reason/Comments: chronic kidney disease Do you want consulting provider notified?: Yes 07/12/20 11:50 Consult Physician Routine Consulting Provider: Beverly Pickens Consult Reason/Comments: triple vessel disease Do you want consulting provider notified?: Yes 07/16/20 11:41 Consult Physician Routine Consulting Provider: Nyla Vargas Consult Reason/Comments: preop cabg/mvr Do you want consulting provider notified?: Yes 07/16/20 15:31 Consult Physician Routine Consulting Provider: Molly Dominguez Consult Reason/Comments: dental clearance for MV surgery; pt had face CT Do you want consulting provider notified?: Yes 07/20/20 07:28 Consult to Anesthesia Routine Consulting Provider: Anesthesia,Services Consult Reason/Comments: Cardiac Surgery Pre-Op 07/21/20 14:27 Consult Physician Routine Consulting Provider: Anna Mireles Consult Reason/Comments: med mgmt Do you want consulting provider notified?: Already Contacted 07/24/20 16:09 Consult Physician Routine Consulting Provider: Clifford Tucker Consult Reason/Comments: inpatient rehab Do you want consulting provider notified?: Yes Primary care physician: Zion Rendon [facility] Course: FINAL DIAGNOSIS: 1. Symptomatic diffusely calcified multivessel coronary artery disease, non- STEMI this admission, status post 2 vessel CABG 2. Acute on chronic systolic congestive heart failure, with her preoperative EF 30-35% 3. Moderate mitral valve regurgitation on SLOANE, status post 26 mm AnnuloFlex band 4. Dyspnea on admission, secondary to acute heart failure, proBNP on admission 14,500 5. Chronic kidney disease stage IV, baseline creatinine around 1.9 per nephrology 6. Diabetes mellitus type 2, hemoglobin A1c is 8.7% 7. Hypertension 8. Hyperlipidemia, treated, cholesterol 157, LDL 75 9. Lifetime nonsmoker 10. Severe obstruction, preoperative FEV1 41% of predicted with moderate increased operative risk per pulmonology 11. Family history of early onset coronary artery disease with her father having a myocardial infarction in his mid 40s 12. Evidence of old anterior wall myocardial infarction 13. Postoperative acute blood loss anemia and thrombocytopenia, expected 14. Atrial fibrillation with rapid ventricular response, currently sinus 15. Elevation of transaminases, likely from congestion PRINCIPAL PROCEDURE: 1. Double vessel coronary artery bypass grafting using the left internal mammary artery to left anterior setting coronary artery, a reverse greater saphenous vein graft from the aorta to the right coronary artery. 2. Mitral valve repair with reduction posterior annuloplasty using a 26 mm AnnuloFlex band. 3. Exclusion of the left atrial appendage using a 35 mm Atriclip. 4. Endoscopic harvesting of the left greater saphenous vein from the groin to just below the knee level. 5. Intraoperative graft flow measurements using the HealthyTweet system. 6. Intraoperative transesophageal echocardiogram and epi-aortic scanning. HISTORY OF PRESENT ILLNESS: This is a 70-year-old female patient who is followed by Dr. Julieta Donovan on an outpatient basis for her primary care service. She has a past medical history significant for a known heart murmur, hypertension, hyperlipidemia, diabetes mellitus type 2 on oral medications on an outpatient basis, chronic kidney disease stage IV with a baseline creatinine of around 1.9 per nephrology, history of skin cancer to her face, family history of early onset coronary artery disease with her dad having his first myocardial infarction in his mid 40s and she is a lifetime nonsmoker. She presented to the emergency department here at [facility] on 07/10/2020 due to complaints of shortness of breath and chest pain which was radiating to her teeth. The patient did report she had similar symptoms and episodes of shortness of breath and chest pain over the last 1-2 months. In the emergency department a 12-lead EKG was completed which showed normal sinus rhythm with STT wave inversions in her anterior lateral leads with a heart rate of 75 BPM. Initial laboratory results showed a WBC count of 11.0, hemoglobin 11.3, hematocrit 33.3, platelets 174, sodium 135, potassium 4.6, CO2 19, BUN 37, creatinine 1.80, glucose 270, pro-BNP 14,500, and positive troponins as high as 12.700. A chest x-ray was completed which the report showed small bilateral pleural effusions and bilateral lung opacities. A 2-D echocardiogram was completed which showed an overall left ventricular systolic function to be moderate to severely impaired with an ejection fraction between 30 and 35%, moderate mitral valve regurgitation and mild tricuspid valve regurgitation. Subsequently, due to the patient's presenting symptoms and positive troponins a consult was placed to Dr. Pompa from cardiology associates for further workup and evaluation. The patient was recommended to undergo a cardiac catheterization and on 07/12/2000 a cardiac catheterization was completed which demonstrated her to have triple vessel coronary artery disease with a critical stenosis of 95-99% involving the mid left anterior descending coronary artery, a 60% stenosis to her circumflex coronary artery and a 70-80% stenosis to her mid right coronary artery. Following the heart catheterization a consult was placed to Dr. Beverly Pickens from cardiothoracic surgery for further evaluation and treatment recommendations including myocardial revascularization surgery. HOSPITAL COURSE: The patient was admitted into the hospital, the cardiac catheterization films were reviewed with the patient by Dr. Pompa and by Dr. Beverly Pickens, treatments options were discussed with the patient including myocardial revascularization surgery with mitral valve repair. Risks and benefits of myocardial revascularization surgery were discussed with the patient including the STS risk score. Knowing and understanding the risks of cardiac surgery the patient wished to proceed with the surgical option. Subsequently, on 07/21/2020 after obtaining consent the patient was taken to the preoperative area, prepared in the usual fashion and taken to the operating room where Dr. Kaylee Pickens performed a double vessel coronary artery bypass grafting using the left internal mammary artery to left anterior setting coronary artery, a reverse greater saphenous vein graft from the aorta to the right coronary artery, mitral valve repair with reduction posterior annuloplasty using a 26 mm AnnuloFlex band, exclusion of the left atrial appendage using a 35 mm Atriclip, endoscopic harvesting of the left greater saphenous vein from the groin to just below the knee level, intraoperative graft flow measurements using the HealthyTweet system, Intraoperative transesophageal echocardiogram and epi-aortic scanning. Upon completion of the surgery the patient was transferred to the cardiovascular intensive care unit where she was recovered and monitored hemodynamically. She was extubated, all lines, tubes and supportive drips were discontinued when appropriate and she was transferred to the third floor cardiac stepdown unit for further monitoring and will ability patient. Postoperatively she did experience some paroxysmal atrial fibrillation which was treated accordingly. Her oxygen was titrated down, she continued to work with physical, occupational therapy and cardiac rehabilitation, she was tolerating an oral diet, her pain was well- controlled and she was ready to be discharged home with [facility] care on postoperative day #7. She has received written and verbal instructions regarding her medications, activity restrictions, signs and symptoms requiring physician notification and her follow-up appointments. COMPLICATIONS: The patient experienced some paroxysmal atrial fibrillation which was treated accordingly. Patient Condition at Discharge: Stable Plan - Discharge Summary Discharge Rx Participant: No New Discharge Prescriptions: New Furosemide [Lasix] 40 mg PO DAILY #30 tablet Magnesium Oxide 400 mg PO DAILY #30 tablet Clopidogrel [Plavix] 75 mg PO DAILY@2100 #30 tab Sennosides-Docusate Sodium [Senokot-S] 2 each PO HS #14 tab Lisinopril [Zestril] 5 mg PO DAILY #30 tab Atorvastatin [Lipitor] 40 mg PO HS #30 tablet Spironolactone [Aldactone] 12.5 mg PO DAILY #30 tablet carvediloL [Coreg] 3.125 mg PO BID-W/MEALS #60 tab Pantoprazole [Protonix] 40 mg PO AC-BRKFST #30 tablet. Acetaminophen Tab [Tylenol] 650 mg PO Q4HR PRN tab PRN Reason: Fever And/ Or Pain sitaGLIPtin [Januvia] 100 mg PO DAILY #30 tab INSULIN LISPRO (humaLOG) [humaLOG] 1 injection SQ DIRECTED #10 ml Continue Allopurinol [Zyloprim] 100 mg PO DAILY Aspirin EC [Ecotrin Low Dose] 81 mg PO DAILY Cholecalciferol [Vitamin D3 (25 Mcg = 1000 Iu)] 25 mcg PO DAILY Glimepiride [Amaryl] 2 mg PO BID Discontinued Metoprolol Succinate (ER) [Toprol Xl] 50 mg PO DAILY Pioglitazone [Actos] 30 mg PO DAILY sitaGLIPtin [Januvia] 50 mg PO DAILY Losartan Potassium 50 mg PO DAILY Simvastatin [Zocor] 40 mg PO HS Spironolactone 50 mg PO HS Discharge Medication List Allopurinol [Zyloprim] 100 mg PO DAILY 07/10/20 [History] Aspirin EC [Ecotrin Low Dose] 81 mg PO DAILY 07/10/20 [History] Cholecalciferol [Vitamin D3 (25 Mcg = 1000 Iu)] 25 mcg PO DAILY 07/10/20 [History] Glimepiride [Amaryl] 2 mg PO BID 07/10/20 [History] Acetaminophen Tab [Tylenol] 650 mg PO Q4HR PRN tab 07/28/20 [Rx] Atorvastatin [Lipitor] 40 mg PO HS #30 tablet 07/28/20 [Rx] Clopidogrel [Plavix] 75 mg PO DAILY@2100 #30 tab 07/28/20 [Rx] Furosemide [Lasix] 40 mg PO DAILY #30 tablet 07/28/20 [Rx] INSULIN LISPRO (humaLOG) [humaLOG] 1 injection SQ DIRECTED #10 ml 07/28/20 [Rx] Lisinopril [Zestril] 5 mg PO DAILY #30 tab 07/28/20 [Rx] Magnesium Oxide 400 mg PO DAILY #30 tablet 07/28/20 [Rx] Pantoprazole [Protonix] 40 mg PO AC-BRKFST #30 tablet.dr 07/28/20 [Rx] Sennosides-Docusate Sodium [Senokot-S] 2 each PO HS #14 tab 07/28/20 [Rx] Spironolactone [Aldactone] 12.5 mg PO DAILY #30 tablet 07/28/20 [Rx] carvediloL [Coreg] 3.125 mg PO BID-W/MEALS #60 tab 07/28/20 [Rx] sitaGLIPtin [Januvia] 100 mg PO DAILY #30 tab 07/28/20 [Rx] Follow up Appointment(s)/Referral(s): Rehab [facility],Cardiac [NON-STAFF] - 4 Weeks (You will be called approximately 4 weeks after surgery to begin cardiac rehab) Julieta Donovan MD [Primary Care Provider] - 08/11/20 10:00 am Beverly Pickens MD [STAFF PHYSICIAN] - 08/21/20 10:15 am Kenisha Banuelos FNPBC [REFERRING] - 08/21/20 3:20 pm Rhiannon Rhodes NPC [Nurse Practitioner] - 08/26/20 2:30 pm (Nurse Practitioner with pulmonary) Artie Roman NPC [Nurse Practitioner] - 08/04/20 11:00 am (to be seen at the surgeon's office in [facility] (behind the hospital), [address] ) [facility], [NON-STAFF] - 1-2 Days Haylee Pompa MD [STAFF PHYSICIAN] - 08/14/20 11:15 am Ambulatory/Diagnostic Orders: Complete Blood Count w/diff [LAB.AMB] Time Frame: 07/31/20, Facility: [facility], Location: Laboratory [facility] Comprehensive Metabolic Panel [LAB.AMB] Time Frame: 07/31/20, Facility: [facility], Location: Laboratory [facility] Activity/Diet/Wound Care/Special Instructions: DISCHARGE INSTRUCTIONS: 1. No driving for 4 weeks, or until physician gives their ok. 2. The patient should sleep in their own bed, no medical bed needed. 3. Stairs are not an issue. If the bedroom is upstairs, it is advised that the patient go up at night and down in the morning for the first week. Go slowly, using handrail and take 1 step at a time. 4. ALEX hose are to be worn for 30 days or until physician discontinues. 5. Heart hugger is to be worn 100% of the time until physician discontinues.(except when showering) 6. No lifting, pushing, or pulling more than 10 pounds for 12 weeks. The physician will advise of any restriction changes. 7. The patient is expected to continue the prescribed walking program. 8. Continue pain control per as needed orders. 9. Continue with incentive spirometry and splinting/heart hugger until otherwise directed by the physician. 10. Must shower daily using liquid antibacterial soap and a separate white washcloth for each individual incision. 11. Routine sternal incision care. No powders, lotions, ointments on incisions. No dressings are necessary on incisions unless they are draining. Dermabond tape is to remain on sternal incision until surgeon follow-up. 12. Please call surgeon/DIGITAL CONTENT COORDINATOR for temp greater than 101 F or purulent drainage from incisions. 13. All prescriptions given by surgeon for 30 days. Refills need to be filled through training development director/primary care physician. 14. A Red armband has been placed on the patient. It should be worn for 30 days post surgery and will be removed by the cardiac surgeons. If an ER visit is necessary, please make sure the number on the Red armband is called. 16. You have been referred to and are expected to begin Cardiac Rehab in approximately 4-6 weeks. 17. Please check your blood sugars before meals and at bedtime, record your blood sugars and bring your blood sugar results to your follow-up appointments with her physicians. If blood sugars are consistently 180 or greater please call Dr. Donovan's office for tighter blood sugar control. HOME HEALTH SERVICES TO PROVIDE: RN SKILLED HOME CARE SERVICES FOR POST-OP SURGICAL PATIENTS WITH THE FOLLOWING: Coronary Artery Bypass Surgery (CABG), Mitral Valve Replacement/ Repair ( MVR), Aortic Valve Replacement/Repair (AVR) RN TO CONTINUE EDUCATION FROM ``ROAD TO A HEALTH HEART PATIENT EDUCATION MANUAL (GIVEN TO PATIENT IN THE HOSPITAL) MEDICATION RECONCILIATION WITH EDUCATION NEEDED ON FIRST HOME VISIT EMPHASIZE IMPORTANCE OF WEARING BREAST SUPPORT/HEART HUGGER ENCOURAGE USE OF INCENTIVE SPIROMETER 10 X EVERY HOUR WHILE AWAKE ENCOURAGE UTILIZATION OF LOWER EXTREMITY COMPRESSION STOCKINGS/ALEX HOSE and ELEVATE LEGS ABOVE LEVEL OF HEART WHILE AT REST. ENCOURAGE AMBULATION 3-5x/day INCREASING TOLERATES, WHILE AVOIDING EXTREMES IN TEMPERATURE FREQUENCY: RN TO OPEN THE PATIENT WITHIN 24 HOURS OF DISCHARGE FROM THE HOSPITAL WITH TELEHEALTH INSTALLED AT [facility] RN TO VISIT 2-3 X A WEEK FOR 4 WEEKS ESTABLISHED BY PATIENT NEEDS. LABORATORY: CBC, CMP TO BE DRAWN ON THE THIRD DAY HOME, (RAN STAT) FAX RESULTS TO [phone]. TELEHEALTH PARAMETERS: WEIGHT: NOTIFY MD OF WEIGHT GAIN OF 2 LBS IN 24 HOURS OR 5 LBS IN ONE WEEK HR: NOTIFY MD OF HR <55 BPM OR HR>100 BPM BP: NOTIFY MD IF BP <90/55 OR BP>140/100 O2 SAT: NOTIFY MD IF PO2<93% ON ROOM AIR SEND TELEHEALTH REPORT TO SUBGRADE ROLLER OPERATOR AND CARDIOVASCULAR SURGEON THE FIRST WEEK OF CARE AND THEN BI-WEEKLY. PLEASE ADDITIONALLY COMMUNICATE ANY ABNORMALS AND NEW FINDINGS TO THE SURGEONS OFFICE. For any questions or concerns please call plate driller Diamond @ or Joel @ Discharge Disposition: HOME WITH HOME HEALTH SERVICES
[2020-07-28 18:28] VITALS: PULSE 72
== END 2020-07-28 18:25 | disposition home health service (06) | DRG 216 ==
LOC: EC 05:57 → 3SCARD 07:30 → 2SICU 07-21 05:57 → 3SCARD 07-27 17:55
PROVIDERS: ADMIT Hospitalist; ATTEND Surgery
PROC: B2111ZZ Fluoroscopy of Multiple Coronary Arteries using Low Osmolar Contrast (ICD-10-PCS; 2020-07-12)
PROC: 4A023N7 Measurement of Cardiac Sampling and Pressure, Left Heart, Percutaneous Approach (ICD-10-PCS; 2020-07-12)
PROC: B246ZZ4 Ultrasonography of Right and Left Heart, Transesophageal (ICD-10-PCS; 2020-07-20)
PROC: 02100Z9 Bypass Coronary Artery, One Artery from Left Internal Mammary, Open Approach (ICD-10-PCS; principal; 2020-07-21 08:00)
PROC: 021009W Bypass Coronary Artery, One Artery from Aorta with Autologous Venous Tissue, Open Approach (ICD-10-PCS; principal; 2020-07-21 08:00)
PROC: B24BZZ4 Ultrasonography of Heart with Aorta, Transesophageal (ICD-10-PCS; principal; 2020-07-21 08:00)
PROC: 02L70CK Occlusion of Left Atrial Appendage with Extraluminal Device, Open Approach (ICD-10-PCS; principal; 2020-07-21 08:00)
PROC: 02UG0JZ Supplement Mitral Valve with Synthetic Substitute, Open Approach (ICD-10-PCS; principal; 2020-07-21 08:00)
PROC: 5A1221Z Performance of Cardiac Output, Continuous (ICD-10-PCS; principal; 2020-07-21 08:00)
PROC: 06BP4ZZ Excision of Right Saphenous Vein, Percutaneous Endoscopic Approach (ICD-10-PCS; principal; 2020-07-21 08:00)
PROC: 0D9670Z Drainage of Stomach with Drainage Device, Via Natural or Artificial Opening (ICD-10-PCS; 2020-07-21 08:00)
PROC: 30233N1 Transfusion of Nonautologous Red Blood Cells into Peripheral Vein, Percutaneous Approach (ICD-10-PCS; 2020-07-22)
DX: I21.4 Non-ST elevation (NSTEMI) myocardial infarction (principal); I50.23 Acute on chronic systolic (congestive) heart failure; J96.01 Acute respiratory failure with hypoxia; N17.0 Acute kidney failure with tubular necrosis; I13.0 Hypertensive heart and chronic kidney disease with heart failure and stage 1 through stage 4 chronic kidney disease, or unspecified chronic kidney disease; C34.90 Malignant neoplasm of unspecified part of unspecified bronchus or lung; D62 Acute posthemorrhagic anemia; E87.1 Hypo-osmolality and hyponatremia; E87.2 Acidosis; I47.1 Supraventricular tachycardia; J98.11 Atelectasis; N18.4 Chronic kidney disease, stage 4 (severe); I25.110 Atherosclerotic heart disease of native coronary artery with unstable angina pectoris; I25.2 Old myocardial infarction; I25.5 Ischemic cardiomyopathy; D63.1 Anemia in chronic kidney disease; D69.6 Thrombocytopenia, unspecified; E11.22 Type 2 diabetes mellitus with diabetic chronic kidney disease; E66.9 Obesity, unspecified; Z68.35 Body mass index [BMI] 35.0-35.9, adult; E78.5 Hyperlipidemia, unspecified; Z20.822 Contact with and (suspected) exposure to COVID-19; J44.9 Chronic obstructive pulmonary disease, unspecified; K76.1 Chronic passive congestion of liver; I27.20 Pulmonary hypertension, unspecified; I25.84 Coronary atherosclerosis due to calcified coronary lesion; I48.0 Paroxysmal atrial fibrillation; I08.1 Rheumatic disorders of both mitral and tricuspid valves; M81.0 Age-related osteoporosis without current pathological fracture; R23.1 Pallor; N05.9 Unspecified nephritic syndrome with unspecified morphologic changes; Z79.02 Long term (current) use of antithrombotics/antiplatelets; Z79.82 Long term (current) use of aspirin; Z79.84 Long term (current) use of oral hypoglycemic drugs; Z79.899 Other long term (current) drug therapy; Z82.49 Family history of ischemic heart disease and other diseases of the circulatory system; Z83.3 Family history of diabetes mellitus; Z85.828 Personal history of other malignant neoplasm of skin; Z95.5 Presence of coronary angioplasty implant and graft; Z98.42 Cataract extraction status, left eye; Z98.41 Cataract extraction status, right eye
CPT/HCPCS: 36415; 70486; 71045; 71046; 80048; 80053; 80061; 80074; 81001; 82330; 82805; 83036; 83605; 83735; 83880; 84132; 84145; 84443; 84484; 85025; 85027; 85520; 85610; 85730; 86022; 86850; 86891; 86900; 86901; 86920; 87070; 87086; 87636; 93005; 93306; 93308; 93312; 93320; 93325; 93458; 93880; 93923; 93970; 94002; 94640; 94660; 94760; 99291

== ENCOUNTER → 2020-09-09 | Outpatient (CLI) | payer MEDICARE ==
--- NOTE | 2020-09-10 08:03 | US ---
EXAMINATION TYPE: US kidneys/renal and bladder DATE OF EXAM: 09/09/2020 COMPARISON: 03/31/2016 CLINICAL HISTORY: N18.4 Chronic kidney disease stage 4. Known CKD, no symptoms EXAM MEASUREMENTS: Right Kidney: 9.4 x 4.2 x 5.0 cm Left Kidney: 8.6 x 3.1 x 3.9 cm Right Kidney: cortical thinning Left Kidney: cortical thinning, small in size Bladder: wnl Bilateral Jets seen: no No hydronephrosis or shadowing renal calculi. IMPRESSION: 1. Bilateral cortical thinning. Small left kidney. Consider chronic medical renal disease. 2. No hydronephrosis or shadowing renal calculi. 3. The bilateral ureteral jets are not visualized.
== END | disposition home or self-care (01) ==
LOC: RADUSWWP 14:18
PROVIDERS: ATTEND Internal Medicine Nephrology
DX: N18.4 Chronic kidney disease, stage 4 (severe) (principal); N27.0 Small kidney, unilateral
CPT/HCPCS: 76770

== ENCOUNTER 2022-03-13 10:49 | Emergency (ER) | payer MEDICARE ==
[2022-03-13 10:56] VITALS: RESP 18
[2022-03-13] MEDS ORDERED: SODIUM CHLORIDE 0.9% 1,000 ML IV STA (11:04)
[2022-03-13] MEDS ORDERED: ONDANSETRON 4 MG/2 ML VIAL IVP STA (11:04)
[2022-03-13] MEDS ORDERED: HYDROmorphone 0.5 MG/0.5 ML SYRINGE IVP STA ×3 (11:10→17:25)
[2022-03-13 11:34] LABS: Basophils % (A) 0 %; Eosinophils # (A) 0.1 k/uL (0-0.7); Eosinophils % (A) 1 %; HCT 37.4 % (34.0-46.0); Lymphocytes # (A) 0.7 k/uL (1.0-4.8); Lymphocytes % (A) 5 %; MCH 31.2 pg (25.0-35.0); MCHC 34.8 g/dL (31.0-37.0); MCV 89.7 fL (80.0-100.0); Mean Platelet Volume 8.8; Monocytes # (A) 0.2 k/uL (0-1.0); Monocytes % (A) 1 %; Neutrophils # (A) 13.5 k/uL (1.3-7.7); Neutrophils % (A) 93 %; Platelet Count 224 k/uL (150-450); RBC 4.17 m/uL (3.80-5.40); RDW 13.1 % (11.5-15.5); WBC 14.5 k/uL (3.8-10.6)
[2022-03-13 12:14] VITALS: TEMP 97
--- NOTE | 2022-03-13 12:25 | US ---
EXAMINATION TYPE: US abdomen limited DATE OF EXAM: 03/13/2022 COMPARISON: 03/31/2016 CLINICAL HISTORY: RUQ pain. TECHNIQUE: Multiple sonographic images of the right upper quadrant are obtained. FINDINGS: EXAM MEASUREMENTS: Liver Length: 15.1 cm Gallbladder Wall: 0.18 cm CBD: 0.61 cm Right Kidney: 10.0 x 4.5 x 3.8 cm RETAIL GREETER NOTES:Exam limited by overlying bowel gas Pancreas: Obscured by bowel gas Liver: limited view but appears within normal limits Gallbladder: Enlarged at 12.8cm with multiple mobile small stones present in the fundus. No evidence for gallbladder wall thickening or pericholecystic fluid. Evidence for sonographic Jeong's sign: No CBD: Prominent but still within normal range Right Kidney: Thin cortex IMPRESSION: Cholelithiasis without evidence for acute cholecystitis.
[2022-03-13 12:36] LABS: Albumin 3.4 g/dL (3.5-5.0); Calcium 8.1 mg/dL (8.4-10.2); Total Bilirubin 1.4 mg/dL (0.2-1.3); Total Protein 5.8 g/dL (6.3-8.2)
[2022-03-13] MEDS ORDERED: PROCHLORPERAZINE INJ 10 MG/2 ML VIAL IVP STA (12:51)
--- NOTE | 2022-03-13 13:03 | ED ---
Abdominal Pain HPI - General Chief Complaint: Abdominal Pain Stated Complaint: rt sided abd pain Time Seen by Provider: 03/13/22 11:03 Source: patient Mode of arrival: ambulatory Limitations: no limitations - History of Present Illness Initial Comments: Patient is a 72-year-old female who presents to the emergency department with a chief complaint of abdominal pain. Patient reports pain in her right upper abdomen with radiation to the right side. The pain started when waking up this morning. Patient has never had this pain before. Patient also reports nausea with 2 episodes of vomiting, nonbloody. She denies fever, chills, burning with urination, blood in the urine, trouble urinating. Denies chest pain and shortness of breath. Denies alcohol use. Denies history of gallbladder disease and kidney stone. - Related Data Home Medications Medication Instructions Recorded Confirmed Aspirin EC [Ecotrin Low Dose] 81 mg PO DAILY 07/10/20 07/10/20 Cholecalciferol [Vitamin D3 (25 25 mcg PO DAILY 07/10/20 07/10/20 Mcg = 1000 Iu)] Glimepiride [Amaryl] 2 mg PO BID 07/10/20 07/10/20 allopurinoL [Zyloprim] 100 mg PO DAILY 07/10/20 07/10/20 Previous Rx's Medication Instructions Recorded Acetaminophen Tab [Tylenol] 650 mg PO Q4HR PRN tab 07/28/20 Atorvastatin [Lipitor] 40 mg PO HS #30 tablet 07/28/20 Clopidogrel [Plavix] 75 mg PO DAILY@2100 #30 tab 07/28/20 Furosemide [Lasix] 40 mg PO DAILY #30 tablet 07/28/20 INSULIN LISPRO (humaLOG) [humaLOG] 1 injection SQ DIRECTED #10 ml 07/28/20 Magnesium Oxide 400 mg PO DAILY #30 tablet 07/28/20 Pantoprazole [Protonix] 40 mg PO WADE #30 tablet. 07/28/20 Sennosides-Docusate Sodium 2 each PO HS #14 tab 07/28/20 [Senokot-S] Spironolactone [Aldactone] 12.5 mg PO DAILY #30 tablet 07/28/20 carvediloL [Coreg] 3.125 mg PO BID-W/MEALS #60 tab 07/28/20 lisinopriL [Zestril] 5 mg PO DAILY #30 tab 07/28/20 sitaGLIPtin [Januvia] 100 mg PO DAILY #30 tab 07/28/20 Allergies Allergy/AdvReac Type Severity Reaction Status Date / Time No Known Allergies Allergy Verified 03/13/22 10:56 Review of Systems ROS Statement: Those systems with pertinent positive or pertinent negative responses have been documented in the HPI. ROS Other: All systems not noted in ROS Statement are negative. Past Medical History Past Medical History: Coronary Artery Disease (CAD), Diabetes Mellitus, Hyperlipidemia, Hypertension, Myocardial Infarction ([place]), Renal Disease, Respiratory Disorder Additional Past Medical History / Comment(s): Stage IIIb/IV kidney disease, heart murmur. Pt had COVID 19 Moderna vaccine on 05/07/20 & 06/04/20. History of Any Multi-Drug Resistant Organisms: None Reported Additional Past Surgical History / Comment(s): skin CA removal, bilateral cataracts Past Anesthesia/Blood Transfusion Reactions: No Reported Reaction Past Psychological History: No Psychological Hx Reported Smoking Status: Never smoker Past Alcohol Use History: None Reported Past Drug Use History: None Reported - Past Family History Father Family Medical History: Myocardial Infarction ([place]) (Her father had a heart attack in his mid 40s and from a myocardial infarction at age 64) Additional Family Medical History / Comment(s): "heart issues" Mother Family Medical History: Diabetes Mellitus, Hypertension General Exam Limitations: no limitations General appearance: alert, in no apparent distress Head exam: Present: atraumatic, normocephalic, normal inspection Respiratory exam: Present: normal lung sounds bilaterally. Absent: respiratory distress, wheezes, rales, rhonchi, stridor Cardiovascular Exam: Present: regular rate, normal rhythm, normal heart sounds. Absent: systolic murmur, diastolic murmur, rubs, gallop, clicks GI/Abdominal exam: Present: soft, tenderness (RUQ, positive jeong sign ), normal bowel sounds. Absent: distended, guarding, rebound, rigid Neurological exam: Present: alert, oriented X3, CN II-XII intact Psychiatric exam: Present: normal affect, normal mood Skin exam: Present: warm, dry, intact, normal color. Absent: rash Course Vital Signs 03/13/22 03/13/22 10:52 12:10 Temperature 97.0 F L Pulse Rate 65 62 Respiratory 18 18 Rate Blood Pressure 145/71 O2 Sat by Pulse 100 98 Oximetry Medical Decision Making - Medical Decision Making Was pt. sent in by a medical professional or institution? No Did you speak to anyone other than the patient for history? No Did you review nursing and triage notes? Yes, and I agree. Symptoms consistent with nursing and triage notes. Were old charts reviewed? Yes Differential Diagnosis? Cholelithiasis, cholecystitis, choledocholithiasis, kidney stone EKG interpreted by me (3pts min.)? NA X-rays interpreted by me (1pt min.)? NA CT interpreted by me (1pt min.)? NA U/S interpreted by me (1pt. min.)? No. Radiology report shows cholelithiasis without evidence of cholecystitis What testing was considered but not performed? (CT, X-rays, U/S, labs)? Why? I considered CT of the abdomen and pelvis however symptoms and physical exam were consistent with gallbladder pathology What meds were considered but not given? Why? None Did you discuss the management of the patient with other professionals? Yes, I discussed the case with Dr. Laurent who declines admission due to lack of GI services. Did you reconcile home meds? No, patient transferred Was smoking cessation discussed for >3mins.? No Was critical care preformed (if so, how long)? No Were there social determinants of health that impacted care today? How? (Homelessness, low income, unemployed, alcoholism, drug addiction, transportation, low edu. Level, literacy, decrease access to med. care, care home, rehab)? No Was there de-escalation of care discussed even if they declined? (Discuss DNR or withdrawal of care, Hospice)? No What co-morbidities impacted this encounter? (DM, HTN, Smoking, COPD, CAD, Cancer, CVA, Hep., AIDS, mental health diagnosis, sleep apnea, morbid obesity)? None Was patient admitted / discharged? This is a 72-year-old female presenting with right upper quadrant pain, nausea, vomiting. Afebrile. Moderate right upper quadrant tenderness on exam. Positive Jeong sign. Laboratory studies obtained. Leukocytosis of 14.5. Liver enzymes elevated. AST at 474, ALT at 207, alk phos at 210. Bilirubin mildly elevated at 1.4. Kidney function consistent with chronic kidney disease.Gallbladder ultrasound shows an enlarged gallbladder at 12.8 cm with multiple mobile stones present in the fundus. No evidence of gallbladder wall thickening or pericholecystic fluid. Case discussed with Dr. Laurent who declines admission due to lack of GI services for probable ERCP. Patient will be transferred to [facility]. Case discussed with transfer team. Dr. Hollingsworth accepts transfer. Transferred in stable condition. Undiagnosed new problem with uncertain prognosis? No Drug Therapy requiring intensive monitoring for toxicity (Heparin, Nitro, Insulin, Cardizem)? No Were any procedures done? No Diagnosis/symptom? Cholelithiasis Acute, or Chronic, or Acute on Chronic? Acute Uncomplicated (without systemic symptoms) or Complicated (systemic symptoms)? Uncomplicated Side effects of treatment? No Exacerbation, Progression, or Severe Exacerbation] NA Poses a threat to life or bodily function? Possibly Dr. Moya is my attending. - Lab Data Result diagrams: 03/13/22 11:14 03/13/22 12:07 Lab Results 03/13/22 03/13/22 03/13/22 Range/Units 11:14 11:14 12:07 WBC 14.5 H (3.8-10.6) k/uL RBC 4.17 (3.80-5.40) m/uL Hgb 13.0 (11.4-16.0) gm/dL Hct 37.4 (34.0-46.0) % MCV 89.7 (80.0-100.0) fL MCH 31.2 (25.0-35.0) pg MCHC 34.8 (31.0-37.0) g/dL RDW 13.1 (11.5-15.5) % Plt Count 224 (150-450) k/uL MPV 8.8 Neutrophils % 93 % Lymphocytes % 5 % Monocytes % 1 % Eosinophils % 1 % Basophils % 0 % Neutrophils # 13.5 H (1.3-7.7) k/uL Lymphocytes # 0.7 L (1.0-4.8) k/uL Monocytes # 0.2 (0-1.0) k/uL Eosinophils # 0.1 (0-0.7) k/uL Basophils # 0.0 (0-0.2) k/uL Sodium 137 (137-145) mmol/L Potassium 4.0 (3.5-5.1) mmol/L Chloride 109 H (98-107) mmol/L Carbon Dioxide 24 (22-30) mmol/L Anion Gap 4 mmol/L BUN 22 H (7-17) mg/dL Creatinine 1.13 H (0.52-1.04) mg/dL Est GFR (CKD-EPI)AfAm 57 (>60 ml/min/1.73 sqM) Est GFR (CKD-EPI)NonAf 49 (>60 ml/min/1.73 sqM) Glucose 180 H (74-99) mg/dL Plasma Lactic Acid Kin 1.3 (0.7-2.0) mmol/L Calcium 8.1 L (8.4-10.2) mg/dL Total Bilirubin 1.4 H (0.2-1.3) mg/dL AST 474 H (14-36) U/L ALT 207 H (4-34) U/L Alkaline Phosphatase 210 H (38-126) U/L Total Protein 5.8 L (6.3-8.2) g/dL Albumin 3.4 L (3.5-5.0) g/dL Amylase 76 (30-110) U/L Lipase 193 (23-300) U/L Disposition Clinical Impression: Cholelithiases, RUQ pain, Nausea and vomiting Disposition: OTHER INSTITUTION NOT DEFINED Condition: Stable Is patient prescribed a controlled substance at d/c from ED?: No Referrals: Bandar Mo DO [Primary Care Provider] - 1-2 days - Out of Hospital Transfer - Req. Specs Out of Hospital Transfer - Requested Specifics: Other Emergency Center ([facility]
[2022-03-13 17:49] VITALS: BP 110/78; PULSE 84
[2022-03-13 17:56] LABS: Appearance,Urine Clear (Clear); Bilirubin,Urine Negative (Negative); Blood,Urine Trace (Negative); Color,Urine Yellow; Glucose,Urine (UA) 4+ (Negative); Ketones,Urine 1+ (Negative); Leukocyte Esterase,Urine Negative (Negative); Mucus,Urine Rare /hpf; Nitrite,Urine Negative (Negative); PH, Urine 6.5 (5.0-8.0); Protein,Urine 2+ (Negative); RBC,Urine 1 /hpf (0-5); Specific Gravity,Urine 1.021 (1.001-1.035); Squamous Epithelial Cell,Urine 1 /hpf (0-4); WBC,Urine 1 /hpf (0-5)
== END 2022-03-13 17:49 | disposition other institution (70) ==
LOC: EC 10:49
DX: K80.20 Calculus of gallbladder without cholecystitis without obstruction (principal); E11.9 Type 2 diabetes mellitus without complications; I25.10 Atherosclerotic heart disease of native coronary artery without angina pectoris; Z79.82 Long term (current) use of aspirin
CPT/HCPCS: 36415; 80053; 82150; 83605; 83690; 85025; 81001; 87635; 76705; 99285; 96374; 96375 ×2; 96376 ×2; 96361; J0780; J2405; J1170

== ENCOUNTER 2022-03-20 06:27 | Emergency (ER) | payer MEDICARE ==
[2022-03-20 06:35] VITALS: TEMP 98.6
[2022-03-20] MEDS ORDERED: ONDANSETRON 4 MG/2 ML VIAL IVP STA (06:45)
[2022-03-20] MEDS ORDERED: SODIUM CHLORIDE 0.9% 500 ML 500 ML IV STA (06:45)
[2022-03-20] MEDS ORDERED: SODIUM CHLORIDE 0.9% 1,000 ML IV STA (06:45)
[2022-03-20] MEDS ORDERED: FAMOTIDINE 20 MG/2 ML VIAL IV STA (06:45)
--- NOTE | 2022-03-20 06:59 | ED ---
Nausea/Vomiting/Diarrhea HPI - General Chief complaint: Nausea/Vomiting/Diarrhea Stated complaint: Post op vomiting Time Seen by Provider: 03/20/22 06:36 Source: patient, RN notes reviewed Mode of arrival: ambulatory Limitations: no limitations - History of Present Illness Initial comments: 72-year-old female presents emergency Department chief complaint nausea vomiting. Patient states that she had cholecystectomy on Monday and was discharged on Monday. Patient states she felt good she went home initially. States that she started vomiting. Patient states she has no abdominal pain denies fevers or chills no chest pain or shortness breath. Patient states she was not discharged with any antiemetics. She is no drainage from her incisional sites. Patient states that she did have a stone in her bile duct that they removed. Patient has no dysuria no hematuria no change in bowel habits. - Related Data Home Medications Medication Instructions Recorded Confirmed Aspirin EC [Ecotrin Low Dose] 81 mg PO DAILY 07/10/20 07/10/20 Cholecalciferol [Vitamin D3 (25 25 mcg PO DAILY 07/10/20 07/10/20 Mcg = 1000 Iu)] Glimepiride [Amaryl] 2 mg PO BID 07/10/20 07/10/20 allopurinoL [Zyloprim] 100 mg PO DAILY 07/10/20 07/10/20 Previous Rx's Medication Instructions Recorded Acetaminophen Tab [Tylenol] 650 mg PO Q4HR PRN tab 07/28/20 Atorvastatin [Lipitor] 40 mg PO HS #30 tablet 07/28/20 Clopidogrel [Plavix] 75 mg PO DAILY@2100 #30 tab 07/28/20 Furosemide [Lasix] 40 mg PO DAILY #30 tablet 07/28/20 INSULIN LISPRO (humaLOG) [humaLOG] 1 injection SQ DIRECTED #10 ml 07/28/20 Magnesium Oxide 400 mg PO DAILY #30 tablet 07/28/20 Pantoprazole [Protonix] 40 mg PO AC-BRKFSLane #30 tablet. 07/28/20 Sennosides-Docusate Sodium 2 each PO HS #14 tab 07/28/20 [Senokot-S] Spironolactone [Aldactone] 12.5 mg PO DAILY #30 tablet 07/28/20 carvediloL [Coreg] 3.125 mg PO BID-W/MEALS #60 tab 07/28/20 lisinopriL [Zestril] 5 mg PO DAILY #30 tab 07/28/20 sitaGLIPtin [Januvia] 100 mg PO DAILY #30 tab 07/28/20 Ondansetron Odt [Zofran Odt] 4 mg PO Q8HR PRN #10 tab 03/20/22 Allergies Allergy/AdvReac Type Severity Reaction Status Date / Time No Known Allergies Allergy Verified 03/20/22 06:33 Review of Systems ROS Statement: Those systems with pertinent positive or pertinent negative responses have been documented in the HPI. ROS Other: All systems not noted in ROS Statement are negative. Past Medical History Past Medical History: Coronary Artery Disease (CAD), Diabetes Mellitus, Hyperlipidemia, Hypertension, Myocardial Infarction ([place]), Renal Disease, Respiratory Disorder Additional Past Medical History / Comment(s): Stage IIIb/IV kidney disease, heart murmur. Pt had COVID 19 Moderna vaccine on 05/07/20 & 06/04/20. History of Any Multi-Drug Resistant Organisms: None Reported Additional Past Surgical History / Comment(s): skin CA removal, bilateral cataracts Past Anesthesia/Blood Transfusion Reactions: No Reported Reaction Past Psychological History: No Psychological Hx Reported Smoking Status: Never smoker Past Alcohol Use History: None Reported Past Drug Use History: None Reported - Past Family History Father Family Medical History: Myocardial Infarction ([place]) (Her father had a heart attack in his mid 40s and from a myocardial infarction at age 64) Additional Family Medical History / Comment(s): "heart issues" Mother Family Medical History: Diabetes Mellitus, Hypertension General Exam Limitations: no limitations General appearance: alert, in no apparent distress Head exam: Present: atraumatic, normocephalic, normal inspection Eye exam: Present: normal appearance, PERRL, EOMI. Absent: scleral icterus, conjunctival injection, periorbital swelling ENT exam: Present: normal exam, normal oropharynx, mucous membranes moist Neck exam: Present: normal inspection, full ROM. Absent: tenderness, m eningismus, lymphadenopathy Respiratory exam: Present: normal lung sounds bilaterally. Absent: respiratory distress, wheezes, rales, rhonchi, stridor Cardiovascular Exam: Present: regular rate, normal rhythm, normal heart sounds. Absent: systolic murmur, diastolic murmur, rubs, gallop, clicks GI/Abdominal exam: Present: soft, normal bowel sounds, other (Incision sites are healing well, no erythema no dehiscence no purulent drainage). Absent: distended, tenderness, guarding, rebound, rigid Back exam: Absent: CVA tenderness (R), CVA tenderness (L) Course Vital Signs 03/20/22 06:33 Temperature 98.6 F Pulse Rate 73 Respiratory 16 Rate Blood Pressure 144/80 O2 Sat by Pulse 98 Oximetry Medical Decision Making - Medical Decision Making Was pt. sent in by a medical professional or institution (SRINI Jean, [employer], urgent care, hospital, or detention...) When possible be specific @ -No Did you speak to anyone other than the patient for history (EMS, parent, family, police, friend...)? What history was obtained from this source @ -No Did you review nursing and triage notes (agree or disagree)? Why? @ -I reviewed and agree with nursing and triage notes Were old charts reviewed (outside hosp., previous admission, EMS record, old EKG, old radiological studies, urgent care reports/EKG's, detention records)? Report findings @ -No old charts were reviewed Differential Diagnosis (chest pain, altered mental status, abdominal pain women, abdominal pain men, vaginal bleeding, weakness, fever, dyspnea, syncope, he adache, dizziness, GI bleed, back pain, seizure, CVA, palpatations, mental health)? @ -Dehydration,enteritis, postoperative nausea vomiting, pancreatitis, postoperative infection, UTI, this list is not all inclusive EKG interpreted by me (3pts min.). @ -None X-rays interpreted by me (1pt min.). @ -None done CT interpreted by me (1pt min.). @ -None done U/S interpreted by me (1pt. min.). @ -None done What testing was considered but not performed or refused? (CT, X-rays, U/S, labs)? Why? @ -X-ray, CT were considered the patient has no localized tenderness and feels improved after antiemetics. What meds were considered but not given or refused? Why? @ -None Did you discuss the management of the patient with other professionals (professionals i.e. SRINI Jean, [employer], lab, RT, psych nurse, social work program coordinator, turbo operator, teacher, activities officer, egg caser)? Give summary @ -No Was smoking cessation discussed for >3mins.? @ -No Was critical care preformed (if so, how long)? @ -No Were there social determinants of health that impacted care today? How? (Homelessness, low income, unemployed, alcoholism, drug addiction, trans portation, low edu. Level, literacy, decrease access to med. care, long term, rehab)? @ -No Was there de-escalation of care discussed even if they declined (Discuss DNR or withdrawal of care, Hospice)? DNR status @ -No What co-morbidities impacted this encounter? (DM, HTN, Smoking, COPD, CAD, Cancer, CVA, ARF, Chemo, Hep., AIDS, mental health diagnosis, sleep apnea, morbid obesity)? @ -Status post cholecystectomy Was patient admitted / discharged? Hospital course, mention meds given and route, prescriptions, significant lab abnormalities, going to OR and other pertinent info. @ -Discharged- 72-year-old presented for nausea vomiting she feels greatly improved after antiemetics IV fluid hydration patient with moderate dehydration patient has minimal transaminitis greatly improved from prior laboratory. Undiagnosed new problem with uncertain prognosis? @ -No Drug Therapy requiring intensive monitoring for toxicity (Heparin, Nitro, Insulin, Cardizem)? @ -No Were any procedures done? @ -No Diagnosis/symptom? @ -nausea vomiting Acute, or Chronic, or Acute on Chronic? @ -acute Uncomplicated (without systemic symptoms) or Complicated (systemic symptoms)? @ -uncomplicated Side effects of treatment? @ -No Exacerbation, Progression, or Severe Exacerbation? @ -No Poses a threat to life or bodily function? How? (Chest pain, [place], [place], pneumonia, PE, COPD, DKA, ARF, appy, cholecystitis, CVA, Diverticulitis, Homicidal, Suicidal, threat to staff... and all critical care pts) @ -No Diagnosis/symptom? @ -Dehydration Acute, or Chronic, or Acute on Chronic? @ -acute Uncomplicated (without systemic symptoms) or Complicated (systemic symptoms)? @ -uncomplicated Side effects of treatment? @ -none Exacerbation, Progression, or Severe Exacerbation] @ -no Poses a threat to life or bodily function? @ -no - Lab Data Result diagrams: 03/20/22 07:41 03/20/22 07:41 Lab Results 03/20/22 03/20/2203/20/23 Range/Units 07:41 07:41 09:22 WBC 9.1 (3.8-10.6) k/uL RBC 3.87 (3.80-5.40) m/uL Hgb 12.0 (11.4-16.0) gm/dL Hct 35.5 (34.0-46.0) % MCV 91.7 (80.0-100.0) fL MCH 31.1 (25.0-35.0) pg MCHC 33.9 (31.0-37.0) g/dL RDW 13.0 (11.5-15.5) % Plt Count 249 (150-450) k/uL MPV 9.1 Neutrophils % 75 % Lymphocytes % 13 % Monocytes % 5 % Eosinophils % 4 % Basophils % 1 % Neutrophils # 6.8 (1.3-7.7) k/uL Lymphocytes # 1.2 (1.0-4.8) k/uL Monocytes # 0.5 (0-1.0) k/uL Eosinophils # 0.4 (0-0.7) k/uL Basophils # 0.1 (0-0.2) k/uL Sodium 137 (137-145) mmol/L Potassium 4.1 (3.5-5.1) mmol/L Chloride 105 (98-107) mmol/L Carbon Dioxide 24 (22-30) mmol/L Anion Gap 8 mmol/L BUN 16 (7-17) mg/dL Creatinine 1.12 H (0.52-1.04) mg/dL Est GFR (CKD-EPI)AfAm 57 (>60 ml/min/1.73 sqM) Est GFR (CKD-EPI)NonAf 50 (>60 ml/min/1.73 sqM) Glucose 153 H (74-99) mg/dL Calcium 8.2 L (8.4-10.2) mg/dL Total Bilirubin 1.0 (0.2-1.3) mg/dL AST 62 H (14-36) U/L ALT 79 H (4-34) U/L Alkaline Phosphatase 190 H (38-126) U/L Total Protein 5.9 L (6.3-8.2) g/dL Albumin 3.3 L (3.5-5.0) g/dL Lipase 224 (23-300) U/L Urine Color Yellow Urine Appearance Clear (Clear) Urine pH 6.5 (5.0-8.0) Ur Specific Murray 1.015 (1.001-1.035) Urine Protein 2+ H (Negative) Urine Glucose (UA) Negative (Negative) Urine Ketones 2+ H (Negative) Urine Blood Negative (Negative) Urine Nitrite Negative (Negative) Urine Bilirubin Negative (Negative) Urine Urobilinogen <2.0 (<2.0) mg/dL Ur Leukocyte Esterase Negative (Negative) Urine RBC <1 (0-5) /hpf Urine WBC <1 (0-5) /hpf Ur Squamous Epith Cells <1 (0-4) /hpf Hyaline Casts 5 H (0-2) /lpf Urine Mucus Rare H (None) /hpf Disposition Clinical Impression: Nausea and vomiting Disposition: HOME SELF-CARE Condition: Stable Instructions (If sedation given, give patient instructions): Acute Nausea and Vomiting (ED) Additional Instructions: Please return to the Emergency Department if symptoms worsen or any other concerns. Prescriptions: Ondansetron Odt [Zofran Odt] 4 mg PO Q8HR PRN #10 tab PRN Reason: Nausea Is patient prescribed a controlled substance at d/c from ED?: No Referrals: Bandar Mo DO [Primary Care Provider] - 1-2 days Time of Disposition: 09:57
[2022-03-20 07:47] LABS: Basophils # (A) 0.1 k/uL (0-0.2); Basophils % (A) 1 %; Eosinophils # (A) 0.4 k/uL (0-0.7); Eosinophils % (A) 4 %; HCT 35.5 % (34.0-46.0); Lymphocytes # (A) 1.2 k/uL (1.0-4.8); Lymphocytes % (A) 13 %; MCH 31.1 pg (25.0-35.0); MCHC 33.9 g/dL (31.0-37.0); MCV 91.7 fL (80.0-100.0); Mean Platelet Volume 9.1; Monocytes # (A) 0.5 k/uL (0-1.0); Monocytes % (A) 5 %; Neutrophils # (A) 6.8 k/uL (1.3-7.7); Neutrophils % (A) 75 %; Platelet Count 249 k/uL (150-450); RBC 3.87 m/uL (3.80-5.40); WBC 9.1 k/uL (3.8-10.6)
[2022-03-20 08:02] LABS: Albumin 3.3 g/dL (3.5-5.0); Calcium 8.2 mg/dL (8.4-10.2); Potassium 4.1 mmol/L (3.5-5.1); Total Protein 5.9 g/dL (6.3-8.2)
[2022-03-20 09:51] LABS: Appearance,Urine Clear (Clear); Bilirubin,Urine Negative (Negative); Blood,Urine Negative (Negative); Color,Urine Yellow; Glucose,Urine (UA) Negative (Negative); Hyaline Casts,Urine 5 /lpf (0-2); Ketones,Urine 2+ (Negative); Leukocyte Esterase,Urine Negative (Negative); Mucus,Urine Rare /hpf; Nitrite,Urine Negative (Negative); PH, Urine 6.5 (5.0-8.0); Protein,Urine 2+ (Negative); RBC,Urine <1 /hpf (0-5); Specific Gravity,Urine 1.015 (1.001-1.035); Squamous Epithelial Cell,Urine <1 /hpf (0-4); Urobilinogen,Urine <2.0 mg/dL (<2.0); WBC,Urine <1 /hpf (0-5)
[2022-03-20 11:33] VITALS: BP 136/73; PULSE 76; RESP 18
== END 2022-03-20 10:15 | disposition home or self-care (01) ==
LOC: EC 06:27
DX: R11.2 Nausea with vomiting, unspecified (principal); I10 Essential (primary) hypertension; I25.10 Atherosclerotic heart disease of native coronary artery without angina pectoris; I25.2 Old myocardial infarction; E11.9 Type 2 diabetes mellitus without complications; Z79.82 Long term (current) use of aspirin
CPT/HCPCS: 36415; 80053; 83690; 85025; 81001; 99284; 96374; 96375; 96361 ×5; J2405

== ENCOUNTER → 2023-08-15 | Outpatient (CLI) | payer MEDICARE ==
--- NOTE | 2023-08-15 11:15 | US ---
EXAMINATION TYPE: US kidneys/renal and bladder DATE OF EXAM: 08/15/2023 COMPARISON: 05/16/2022. CLINICAL INDICATION: Female, 73 years old with history of N18.3 CHRONIC KIDNEY DISEASE, STAGE 3B; KD, no symptoms EXAM MEASUREMENTS: Right Kidney: 9.7 x 3.7 x 4.9 cm Left Kidney: 8.0 x 3.3 x 3.9 cm Right Kidney: cortical thinning Left Kidney: small in size with cortical thinning Bladder: wnl No evidence for obstructive uropathy. Bladder is within normal limits. IMPRESSION: Atrophic kidneys with cortical thinning compatible with medical renal disease.
== END | disposition home or self-care (01) ==
LOC: RADUSWWP 09:52
PROVIDERS: ATTEND Internal Medicine
DX: N26.1 Atrophy of kidney (terminal) (principal); N18.32 Chronic kidney disease, stage 3b
CPT/HCPCS: 76770